=== PATIENT | male | born 1945 | race Caucasian/White ===

== ENCOUNTER → 2018-04-24 10:57 | Outpatient (CLI) | payer MEDICARE, SELFPAY ==
[2018-04-24 12:10] LABS: Absolute Lymphocyte Count 1.91 X10^3/ul (0.83-4.51); Basophil# 0.03 X10^3/uL; Basophil% 0.5 % (0-1); Eosinophil# 0.13 X10^3/uL; Eosinophils% 2.3 % (0-5); Hematocrit 40.7 % (40-54); Hemoglobin 13.9 g/dl (13.0-16.5); Lymphocyte # 1.91 X10^3/ul (4.0); Lymphocyte % 34.4 % (19-41); Mean Corp Hgb Conc 34.2 g/gl (32-36); Mean Corpuscular Hgb 32.2 pg (27.0-32.0); Mean Corpuscular Volume 94.2 fL (80-94); Mean Platelet Vol. 9.9 fl (6.2-12.0); Monocyte# 0.45 X10^3/uL; Monocyte% 8.1 % (0-10); Neutrophil # 3.02 X10^3/uL (2.7-7.7); Neutrophil % 54.5 % (47-70); Platelet Count 196 K/mm3 (150-450); RBC Distribution Width CV 12.8 % (11.6-14.6); RBC Distribution Width SD 44.4 fl (35.1-43.9); Red Blood Count 4.32 M/mm3 (4.6-6.2); White Blood Count 5.6 K/mm3 (4.4-11.0)
[2018-04-24 12:22] LABS: POSITIVE COUNT NO; POSITIVE DIFFERENTIAL NO; POSITIVE MORPHOLOGY NO
[2018-04-24 12:34] LABS: Anion Gap 11 (5-15); BUN 11 mg/dL (7-18); BUN/Creat Ratio 10.5 RATIO (10-20); Calcium,Total 9.5 mg/dL (8.5-10.1); Chloride 101 mmol/L (98-107); Creatinine, Serum 1.05 mg/dL (0.70-1.30); EST Glomerular Filtration Rate 74 mL/min (>60); Est Glom Filt Rate - Afr Amer 90 mL/min (>60); Glucose 253 mg/dL (74-106); Potassium 4.6 mmol/L (3.5-5.1); Sodium Level 138 mmol/L (136-145); Thyroid Stim Hormone (TSH) 0.44 uIU/mL (0.358-3.74)
== END ==
PROVIDERS: Family Provider Family Medicine; PCP Family Medicine; Visit Provider Family Medicine
DX: E11.9 Type 2 diabetes mellitus without complications (principal); E78.5 Hyperlipidemia, unspecified; I10 Essential (primary) hypertension
CPT/HCPCS: 36415; 80048; 84443; 85025

== ENCOUNTER 2018-06-09 11:36 | Emergency (ER) | payer MEDICARE, SELFPAY ==
[2018-06-09 11:37] VITALS: BP 165/90; PULSE 86; RESP 16; TEMP 36; O2SAT 97; BMI 29.8
--- NOTE | 2018-06-09 12:18 | RAD_ITS ---
STUDY: X-RAY - LEFT TIBIA AND FIBULA REASON FOR EXAM: Male, 73 years old. Left leg pain. No known injury. TECHNIQUE: AP and view(s) of the tibia and fibula were obtained. COMPARISON: None. FINDINGS: Normal visualized tibia. Normal visualized fibula. Plantar spur. Vascular calcification. RAD/Tibia & Fibula 2 Views IMPRESSION: Vascular calcification. Plantar spur. Electronically Signed: Josh Winston MD at 12:46 EST Tel [phone], Service support ,
[2018-06-09] MEDS: Cephalexin 250 MG Capsule 500 MG PO (12:31)
--- NOTE | 2018-06-09 13:00 | ED.DCSUM_ITS ---
- ER Visit Summary Date of Service: 06/09/18 Chief Complaint: Left leg pain History of Present Illness: The patient is a [address] Marcellus Moore and Dr. Cifuentes. He reports that he has a history of diabetes mellitus and that he had to have his right fourth toe amputated a couple years ago. States that 3 days ago he bumped his left leg on something and has pain since that time that is 5 out of 10 with walking and movement and is pain-free at rest. Describes it as an aching, stretching pain and points to his Achilles as the area that is in pain. Patient is also concerned because his right second toenail came off when he removed his socks 3 days ago and the area is becoming red. Review of systems: General: No fever, chills, cold sweats. Cardiovascular: No chest pain, palpitations. Respiratory: No cough, shortness of breath, dyspnea on exertion. Gastrointestinal: No abdominal pain, nausea, vomiting, diarrhea, melena, or hematochezia. Genitourinary: No dysuria, frequency, hematuria. Skin: No rash. Neuro: No headache, numbness, weakness. Physical Examination: Vitals: Stable. Afebrile. General: Well-nourished and well-developed. Head: Normocephalic atraumatic. Neck: Supple, no lymphadenopathy. No JVD. Nontender. Cardiovascular: Regular rate and rhythm. No murmurs. Respiratory: No respiratory distress. Clear to auscultation bilaterally. Abdominal: Soft, nontender, nondistended, normal bowel sounds. No guarding, rebound, or peritoneal signs. Back: Nontender. Extremities: Contusion over the medial side of his distal left leg. There is mild soft tissue swelling. He is moderately tender to palpation. His Achilles is intact. He has a normal Chan test. He has a 2+ dorsalis pedis pulse on the side. Exam of his right foot shows that the Tylenol has been avulsed. There is mild erythema to his toe. There is no induration or fluctuance. There is no lymphangitic spread.. Skin: Normal color, no rash. Neurologic: Alert and oriented ?3. Cranial nerves II through XII are intact. Normal strength and sensation. Psych: Normal affect. Test Results: Left tib-fib x-ray is negative. Emergency Department Course and Treatment: Patient was treated with Keflex p.o. and is resting comfortably. Treatment Plan: Patient will be discharged on Keflex. Instructed to follow-up Dr. Esau acosta in 6 days as previously scheduled. Return to the emergency department for any worsening symptoms. Disposition: To home in improved and stable condition. Impression: 1. Contusion left leg. 2. Avulsed right third toenail. This note was generated with [employer] dictation software. It may contain incorrect words, spelling, and punctuation that were not noted in review of the chart prior to signing ED Disposition - Plan for ED Patient: Disposition: Home or Assisted Living Chief Complaint: Wound Instructions: ED Avulsion Nail Complete Prescriptions: Cephalexin [Keflex] 500 mg PO Q6 #28 capsule Referrals: Rebecca Cifuentes DPM [STAFF PHYSICIAN] - 1 Week
== END 2018-06-09 13:24 | disposition home or self-care (01) ==
LOC: ED 13:18
PROVIDERS: Emergency Provider Emergency Medicine; Family Provider Family Medicine; PCP Family Medicine
DX: S80.12XA Contusion of left lower leg, initial encounter (principal); S91.204A Unspecified open wound of right lesser toe(s) with damage to nail, initial encounter; X58.XXXA Exposure to other specified factors, initial encounter; W22.8XXA Striking against or struck by other objects, initial encounter; Y93.9 Activity, unspecified; Y92.9 Unspecified place or not applicable; E11.9 Type 2 diabetes mellitus without complications; Z89.421 Acquired absence of other right toe(s); Z79.84 Long term (current) use of oral hypoglycemic drugs; Z79.82 Long term (current) use of aspirin
CPT/HCPCS: 73590; 99283

== ENCOUNTER → 2018-10-22 10:54 | Outpatient (CLI) | payer MEDICARE, SELFPAY ==
--- NOTE | 2018-10-22 10:57 | ART_ITS ---
Reason For Study: PVD Procedure A bilateral lower extremity continuous wave Doppler with analog waveform analysis,segmental pressures,and ankle brachial indexes without exercise. Left Segmental Pressures Left brachial= 167mmHg. Left thigh = 218mmHg. Left calf = 175mmHg. Left posterior tibial artery = 144mmHg. Left dorsalis pedis artery = 249mmHg. Left digit = 30 mmHg. The left dorsalis pedis waveforms are biphasic. The left posterior tibial artery waveforms are biphasic. Right Segmental Pressures Right brachial= 160mmHg. Right thigh = 231mmHg. Right calf = 180mmHg. Right posterior tibial artery = 120mmHg. Right dorsalis pedis artery = 132mmHg. Right digit = 132 mmHg. The right dorsalis pedis waveforms are biphasic. The right posterior tibial artery waveforms are biphasic. Indices The right ankle brachial index by the dorsalis pedis is .79. The right ankle brachial index by the posterior tibial artery is .79. The right digital-brachial index is .79. The left ankle brachial index by the dorsalis pedis is 1.49. The left ankle brachial index by the posterior tibial artery is .86. The left digital-brachial index is .18. Interpretation Summary Biphasic Doppler waveforms are noted at ankle level bilaterally. Pulse-volume recording waveform amplitudes are diminished at ankle and digital levels bilaterally. The resting right ankle-brachial index is moderately diminished. The resting left ankle-brachial index is supra-normal. The right digital-brachial index is normal. The left digital-brachial index is severely diminished. 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 There appears to be arterial calcification at ankle level on the left. Arterial flow at digital level on the right appears relatively normal. Arterial flow at digital level on the left appears to be severely diminished. Ordering Physician: Rebecca Cifuentes Referring Physician: Rebecca Cifuentes Performed By: Daniela Cardenas RVT
== END ==
PROVIDERS: Family Provider Family Medicine; PCP Family Medicine; Referring Provider Podiatrist; Visit Provider Podiatrist
DX: I73.9 Peripheral vascular disease, unspecified (principal)
CPT/HCPCS: 93923

== ENCOUNTER 2018-11-18 13:15 | Outpatient (RCR) | payer MEDICARE, SELFPAY ==
[2018-11-11 13:18] VITALS: BP 139/83; PULSE 84; RESP 18; TEMP 36.2
--- NOTE | 2018-11-11 15:26 | PN.PCM_ITS ---
(1) Chronic ulcer of left foot with fat layer exposed Status: Acute Code(s): L97.522 - Non-pressure chronic ulcer of other part of left foot with fat layer exposed (2) Other specified peripheral vascular diseases Status: Chronic Code(s): I73.89 - Other specified peripheral vascular diseases (3) Type 2 diabetes mellitus with diabetic polyneuropathy Status: Chronic Code(s): E11.42 - Type 2 diabetes mellitus with diabetic polyneuropathy (4) Achilles rupture, left Status: Chronic Code(s): S86.012A - Strain of left Achilles tendon, initial encounter (5) Delayed wound healing Status: Chronic Code(s): T14.8XXD - Other injury of unspecified body region, subsequent encounter (6) Malnutrition Status: Chronic Code(s): E46 - Unspecified protein-calorie malnutrition (7) Walking difficulty due to ankle and foot Status: Chronic Code(s): R26.2 - Difficulty in walking, not elsewhere classified Type of Wound Date of Service: 11/11/18 Chief Complaint: Left heel ulcer History of Wound: This 73-year-old male with multiple comorbidities is seen today for left plantar heel ulcer. He sustained an Achilles rupture over 4 months ago and reported for evaluation within the past couple of weeks at [facility]. He has been walking on physical time with ongoing weakness and discomfort. He was placed in a cam walker boot and advised to only place partial weight on this site with the heel lifts in place to allow the tendon to heal. He walked fully in this brace and developed skin breakdown to the bottom of his heel after a large blister formed. This blister has since been drained, deroofed, offloaded. Strict nonweightbearing has been recommended and he uses an assistive device. His granddaughter has been helping him until she moved back out of state. His neighbor now is helping him. He just received [employer] and other supplies in the mail. He was previously advised to follow- up with vascular surgery due to his abnormal blood flow study results; this has not been scheduled yet. He denies fever, chill, nausea, vomiting today. He does have some evidence of previous claudication. He is legally blind and he does have continued rest paresthesias consistent with neuropathy. Progress of Wound: Stable - Physical Exam Vital Signs Temp Pulse Resp BP 97.1 F L 84 18 139/83 H 11/11/18 13:18 11/11/18 13:18 11/11/18 13:18 11/11/18 13:18 General: Alert, Oriented x3, Cooperative HEENT: Atraumatic Extremities: No cyanosis, Capillary Refill Less than 3 Seconds, No Calf Tenderness - Negative, and [place]win, Diminished Peripheral Pulses, Edema - Mild, - - Lack of foot plantarflexion with compression of left calf. Palpable [place] in the Achilles watershed area of the left lower extremity. No pain with ulcer manipulation of the plantar left heel. No bogginess or fluctuance at this ulcer site. Skin: Ulcer/ Wound - There is no purulence, erythema, streaking, odor, infection or exposed deep tissue or maceration left foot. The previous bulla has been deroofed and the ulcer bed is granular and fibrous with a central well adhered dry eschar. The peripheral skin is very hairless and atrophic Wound Measurements and Assessment WC - Nurse 1 - General Ulcer Measurement Start: 11/11/18 13:18 Freq: Status: Active Protocol: Activity Type Activity Date Activity User E-Sign Co-Sign Detail Recorded Client Recorded Date Recorded By Document 11/11/18 13:18 DV [id number] 11/11/18 13:46 DV 11/11/18 13:18 Wound Center Nurse 1 [Ulcer Assessment] #1 Left Heel -Combined with other wound No -Current Size (cm) - Length 1.0 -Current Size (cm) - Width 4.0 -Current Size (cm) - Depth 0.1 -Total Square Cm 4.00 -Date of Last Picture (Recall this 11/11/18 field) -Photo Taken Yes -Epithelialization None Present -Tunneling No -Undermining/Tunneling No -Circular Undermining No -Exudate Amt Medium -Exudate Type Serosanguineous -Wound Margin Flat & Intact -Granulation Amt None Present (0 %) -Granulation Quality N/A -Slough/Fibrin Yes -Necrosis Amt Large (67-100%) -Necrotic Tissue Type Eschar -Structure Exposed None/Limited to Skin Breakdown -Texture (Emily-wound Skin Appearance) Assessed Scarring -Moisture (Emily-wound Skin Appearance Assessed ) -Color (Emily-wound Skin Appearance) Assessed Erythema -Temperature (Emily-wound Skin No Abnormality Appearance) (Pt Warm) -Tenderness on Palpation (Emily-wound Yes Skin Appearance) -Ulcer Cleansing Rinsed/ Irrigated with Saline -Foul Odor after Cleansing No -Anesthetic Used 4% Lidocaine Solution [Edema Assessment] -Lower Limb Edema Present No - Nurse 2 - General Ulcer CM Notes Start: 11/11/18 13:18 Freq: Status: Active Protocol: Activity Type Activity Date Activity User E-Sign Co-Sign Detail Recorded Client Recorded Date Recorded By Document 11/11/18 14:06 [id number] 11/11/18 14:08 11/11/18 14:06 Wound Center Nurse 2 [Procedure/Treatment] #1 Left Heel -Time 14:07 -Correct Patient Yes -Correct Side, Site, Position Yes -Correct Procedure Yes -Procedure Performed Yes -Type of Procedure Debridement -Clinical Debridement Subcutaneous -Post Debridement Size (cm) - Length 1.1 -Post Debridement Size (cm) - Width 4.1 -Post Debridement Size (cm) - Depth 0.1 -Total Square Cm 4.51 -Wound/Ulcer Outcome Not Healed -Ulcer Cleansing Rinsed/ Irrigated with Saline -Foul Odor after Cleansing No -Bioengineered Tissue No -Bleeding Controlled with Pressure -Offloading Yes -Type of Offloading Camwalker -Treatment Response Procedure Tolerated Well [See Physician Procedure note for Specifics] Pain Scale: 0-10 Numeric [Pain] -Is Patient Pain Free? Yes Musculoskeletal: No Tenderness to Palpation of Joints or Extremities, Muscle Wasting Neurological: - - Lack of epicritic sensation light touch consistent with neuropathy Psych/Mental Status: Normal Affect, Appropriate Debridement Note Post-Debridement Measurements/Treatment - Nurse 2 - General Ulcer CM Notes Start: 11/11/18 13:18 Freq: Status: Active Protocol: Activity Type Activity Date Activity User E-Sign Co-Sign Detail Recorded Client Recorded Date Recorded By Document 11/11/18 14:06 JF [id number] 11/11/18 14:08 11/11/18 14:06 Wound Center Nurse 2 #1 Left Heel -Time 14:07 -Correct Patient Yes -Correct Side, Site, Position Yes -Correct Procedure Yes -Procedure Performed Yes -Type of Procedure Debridement -Clinical Debridement Subcutaneous -Post Debridement Size (cm) - Length 1.1 -Post Debridement Size (cm) - Width 4.1 -Post Debridement Size (cm) - Depth 0.1 -Total Square Cm 4.51 -Wound/Ulcer Outcome Not Healed -Ulcer Cleansing Rinsed/ Irrigated with Saline -Foul Odor after Cleansing No -Bioengineered Tissue No -Bleeding Controlled with Pressure -Offloading Yes -Type of Offloading Camwalker -Treatment Response Procedure Tolerated Well Pain Scale: 0-10 Numeric Is Patient Pain Free? Yes Wound debrided: plantar heel Laterality: Left Wound Grade/Stage: grade 1 Type of Debridement: Excisional debridement Anesthesia Used: 5% Lidocaine Gel Depth: in the subcutaneous layer Percentage of wound debrided: 100 Instrument Used: #15 blade Tissue Removed: fibrous, devitalized subcutaneous, biofilm, slough Severity: Fat Layer Exposed Amount of bleeding with debridement: Mild Bleeding Controlled with: Pressure Patient tolerated procedure well Assessment/Plan Assessment: Left heel ulcer. Left Achilles tendon rupture. Peripheral vascular disease. Diabetes with neuropathy. Malnutrition. Other comorbidities. Walking difficulty Plan: I reviewed and discussed his case. Debridement was performed as noted in the clinical panel. To continue strict offloading by wearing a Cam walking boot and using a knee roller, crutches, a walker to keep weight off of the site. He change dressing daily with [employer]. Transition into other wound healing products will be considered as the ulcer changes and progresses. It is noted his CAM Walker does have heel lifts in place to keep his foot in a slightly plantarflexed position to allow Achilles tendon rupture healing. He was reassured no local signs of infection are noted and advised him to monitor this. His neighbor will also help with this. It is noted his noninvasive vascular studies were abnormal again and he has had previous lower extremity ulcers with significant delayed healing. The referral to Dr. Dodson was provided and he was advised to schedule a prompt follow-up to see if any intervention is possible. To continue with proper diet to control medical health and ulcer healing. He was unable to afford the Yayo and will take Ensure 1-2 times daily as a supplement. His x-ray was previously reviewed at the foot [facility] ankle Center without any fractures, soft tissue emphysema, foreign body, or dislocations or Charcot. Lab work will also be updated; CBC, CMP, and prealbumin. To return to the wound healing center in 1 week or call sooner if he has any questions or concerns. I answered all of his questions.
[2018-11-18 13:12] VITALS: BP 177/76; PULSE 81; RESP 16; TEMP 36.2
--- NOTE | 2018-11-18 14:33 | PN.PCM_ITS ---
(1) Chronic ulcer of left foot with fat layer exposed Status: Chronic Current Visit: Yes Code(s): L97.522 - Non-pressure chronic ulcer of other part of left foot with fat layer exposed (2) Other specified peripheral vascular diseases Status: Chronic Current Visit: Yes Code(s): I73.89 - Other specified peripheral vascular diseases (3) Type 2 diabetes mellitus with diabetic polyneuropathy Status: Chronic Current Visit: Yes Code(s): E11.42 - Type 2 diabetes mellitus with diabetic polyneuropathy (4) Achilles rupture, left Status: Chronic Current Visit: Yes Code(s): S86.012A - Strain of left Achilles tendon, initial encounter (5) Delayed wound healing Status: Chronic Current Visit: Yes Code(s): T14.8XXD - Other injury of unspecified body region, subsequent encounter (6) Malnutrition Status: Chronic Current Visit: Yes Code(s): E46 - Unspecified protein- calorie malnutrition (7) Walking difficulty due to ankle and foot Status: Chronic Current Visit: Yes Code(s): R26.2 - Difficulty in walking, not elsewhere classified Type of Wound Date of Service: 11/18/18 Chief Complaint: Left heel ulcer History of Wound: This 73-year-old male with multiple comorbidities is seen today for left plantar heel ulcer. He is concurrently being treated for a neglected left Achilles tendon rupture with CAM Walker immobilization and heel lift. He is remain nonweightbearing to left lower extremity and his neighbor helps him with daily dressing changes. He denies fever, chill, nausea, vomiting. He did have previous claudication symptoms. He is still trying to get a follow-up visit with vascular surgery and has been provided with several options as far as location and providers. Progress of Wound: Stable - Physical Exam Vital Signs Temp Pulse Resp BP 97.1 F L 81 16 177/76 H 11/18/18 13:12 11/18/18 13:12 11/18/18 13:12 11/18/18 13:12 General: Alert, Oriented x3, Cooperative HEENT: Atraumatic Extremities: No cyanosis, Capillary Refill Less than 3 Seconds, No Calf Tenderness - Negative Abhishek and Irwin, Diminished Peripheral Pulses, Edema - Mild left, - - There is no longer distinct palpable [place] to the watershed area of the previously ruptured Achilles tendon site. Pain to palpate this site has also resolved. Skin: Ulcer/ Wound - No purulence, erythema, streaking, odor, or acute signs of infection. There is moist eschar to the plantar heel which was debrided away today without deeper exposed muscle or bone. Wound Measurements and Assessment - Nurse 1 - General Ulcer Measurement Start: 11/11/18 13:18 Freq: Status: Active Protocol: Activity Type Activity Date Activity User E-Sign Co-Sign Detail Recorded Client Recorded Date Recorded By Document 11/18/18 13:12 [facility] [id number] 11/18/18 13:21 [facility] 11/18/18 13:12 Wound Center Nurse 1 [Ulcer Assessment] #1 Left Heel -Combined with other wound No -Current Size (cm) - Length 2.6 -Current Size (cm) - Width 4.1 -Current Size (cm) - Depth 0.1 -Total Square Cm 10.66 -Photo Taken No -Epithelialization None Present -Tunneling No -Undermining/Tunneling No -Circular Undermining No -Exudate Amt Medium -Exudate Type Serosanguineous -Wound Margin Distinct, Outline Attached -Granulation Amt Small (1-33%) -Granulation Quality Red -Slough/Fibrin Yes -Necrosis Amt Large (67-100%) -Necrotic Tissue Type Eschar -Structure Exposed N/A -Texture (Emily-wound Skin Appearance) Assessed Callus Scarring -Moisture (Emily-wound Skin Appearance Assessed ) Dry/Scaly -Color (Emily-wound Skin Appearance) Assessed Erythema -Temperature (Emily-wound Skin No Abnormality Appearance) (Pt Warm) -Tenderness on Palpation (Emily-wound No Skin Appearance) -Ulcer Cleansing Wound Cleanser -Foul Odor after Cleansing No -Anesthetic Used 5% Lidocaine Gel - Nurse 2 - General Ulcer CM Notes Start: 11/11/18 13:18 Freq: Status: Active Protocol: Activity Type Activity Date Activity User E-Sign Co-Sign Detail Recorded Client Recorded Date Recorded By Document 11/18/18 14:02 AN [id number] 11/18/18 14:07 AN 11/18/18 14:02 Wound Center Nurse 2 [Procedure/Treatment] -Time 14:03 -Correct Patient Yes -Correct Side, Site, Position Yes -Correct Procedure Yes -Procedure Performed Yes -Type of Procedure Debridement -Clinical Debridement Subcutaneous -Post Debridement Size (cm) - Length 2.7 -Post Debridement Size (cm) - Width 4.2 -Post Debridement Size (cm) - Depth 0.1 -Total Square Cm 11.34 -Wound/Ulcer Outcome Not Healed -Ulcer Cleansing Rinsed/ Irrigated with Saline -Foul Odor after Cleansing No -Bioengineered Tissue No -Bleeding Controlled with Pressure -Type of Offloading Camwalker -Treatment Response Procedure Tolerated Well [See Physician Procedure note for Specifics] Pain Scale: 0-10 Numeric [Pain] -Is Patient Pain Free? Yes Musculoskeletal: No Tenderness to Palpation of Joints or Extremities, Muscle Wasting, - - No bogginess or fluctuance left. Compartments remain soft to palpate left lower extremity. Neurological: - - Lack of epicritic sensation light touch left lower extremity Psych/Mental Status: Normal Affect, Appropriate Debridement Note Post-Debridement Measurements/Treatment WC - Nurse 2 - General Ulcer CM Notes Start: 11/11/18 13:18 Freq: Status: Active Protocol: Activity Type Activity Date Activity User E-Sign Co-Sign Detail Recorded Client Recorded Date Recorded By Document 11/11/18 14:06 [id number] 11/11/18 14:08 Document 11/18/18 14:02 AN [id number] 11/18/18 14:07 AN 11/11/18 11/18/18 14:06 14:02 Wound Center Nurse 2 #1 Left Heel -Time 14:07 14:03 -Correct Patient Yes Yes -Correct Side, Site, Position Yes Yes -Correct Procedure Yes Yes -Procedure Performed Yes Yes -Type of Procedure Debridement Debridement -Clinical Debridement Subcutaneous Subcutaneous -Post Debridement Size (cm) - Length 1.1 2.7 -Post Debridement Size (cm) - Width 4.1 4.2 -Post Debridement Size (cm) - Depth 0.1 0.1 -Total Square Cm 4.51 11.34 -Wound/Ulcer Outcome Not Healed Not Healed -Ulcer Cleansing Rinsed/ Rinsed/ Irrigated with Irrigated with Saline Saline -Foul Odor after Cleansing No No -Bioengineered Tissue No No -Bleeding Controlled with Pressure Pressure -Offloading Yes -Type of Offloading Camwalker Camwalker -Treatment Response Procedure Procedure Tolerated Well Tolerated Well Pain Scale: 0-10 Numeric Is Patient Pain Free? Yes Yes Wound debrided: plantar heel Laterality: Left Wound Grade/Stage: grade 1 Type of Debridement: Excisional debridement Anesthesia Used: 5% Lidocaine Gel Depth: in the subcutaneous layer Percentage of wound debrided: 100 Instrument Used: #15 blade Tissue Removed: fibrous, devitalized subcutaneous, biofilm, slough, moist eschar Severity: Fat Layer Exposed Amount of bleeding with debridement: Mild Bleeding Controlled with: Pressure Patient tolerated procedure well Assessment/Plan Active Problems Chronic ulcer of left foot with fat layer exposed (Chronic) Other specified peripheral vascular diseases (Chronic) Type 2 diabetes mellitus with diabetic polyneuropathy (Chronic) Achilles rupture, left (Chronic) Delayed wound healing (Chronic) Malnutrition (Chronic) Walking difficulty due to ankle and foot (Chronic) Assessment: Left heel ulcer. Left Achilles tendon rupture. Peripheral vascular disease. Diabetes with neuropathy. Malnutrition. Other comorbidities. Walking difficulty Plan: I reviewed and discussed his case. Debridement was performed as noted in the clinical panel. To continue strict offloading by wearing a Cam walking boot and using a knee roller, crutches, a walker to keep weight off of the site. He change dressing daily with the recommended wound product. Transition into other wound healing products will be considered as the ulcer changes and progresses. It is noted his CAM Walker does have heel lifts in place to keep his foot in a slightly plantarflexed position to allow Achilles tendon rupture healing. He was reassured no local signs of infection are noted and advised him to monitor this. His neighbor will also help with this. It is noted his non invasive vascular studies were abnormal again and he has had previous lower extremity ulcers with significant delayed healing. The referral to Dr. Dodson was provided and he was advised to schedule a prompt follow-up to see if any intervention is possible. He still has not done this as advised. This is recommended due to his difficulty traveling to his previous vascular surgeons location and scheduling issues. He now wants to try to return to his initial vascular surgeon which is okay. I recommend he take action promptly to prevent limb loss. Nursing staff also help facilitate his follow-up. To continue with proper diet to control medical health and ulcer healing. He was unable to afford the Yayo and will take Ensure 1-2 times daily as a supplement. His x- ray was previously reviewed at the foot and ankle Center without any fractures, soft tissue emphysema, foreign body, or dislocations or Charcot. Lab work will also be updated; CBC, CMP, and prealbumin. To return to the wound healing center in 1 week or call sooner if he has any questions or concerns. I answered all of his questions.
== END 2018-11-24 23:59 ==
LOC: WC 13:15
PROVIDERS: Family Provider Family Medicine; PCP Family Medicine; Visit Provider Podiatrist
DX: E11.621 Type 2 diabetes mellitus with foot ulcer (principal); E11.42 Type 2 diabetes mellitus with diabetic polyneuropathy; L97.422 Non-pressure chronic ulcer of left heel and midfoot with fat layer exposed; H54.8 Legal blindness, as defined in USA; S86.012A Strain of left Achilles tendon, initial encounter; X58.XXXA Exposure to other specified factors, initial encounter
CPT/HCPCS: 11042; 99213; G0463

== ENCOUNTER 2018-12-09 13:33 | Inpatient (IN) | payer MEDICARE, SELFPAY ==
[2018-12-09] VITALS (10 sets, daily range): BP systolic 128–164; BP diastolic 78–95; PULSE 70–95; RESP 14–114; TEMP 36.4–36.8; O2SAT 97–100; BMI 29.8; BMI 29.2; BMI 29.3; BMI 28.3
[2018-12-09 15:04] LABS: Erythrocyte Sedimentation Rate 18 mm/hr (0-20)
[2018-12-09 15:05] LABS: Absolute Lymphocyte Count 2.36 X10^3/ul (0.83-4.51); Absolute Neutrophil Count 5.9 X10^3/uL (2.0-7.7); Basophil# 0.05 X10^3/uL; Basophil% 0.5 % (0-1); Eosinophil# 0.15 X10^3/uL; Eosinophils% 1.6 % (0-5); Hematocrit 37.2 % (40-54); Hemoglobin 12.7 g/dl (13.0-16.5); Lymphocyte # 2.36 X10^3/ul (4.0); Lymphocyte % 24.9 % (19-41); Mean Corp Hgb Conc 34.1 g/gl (32-36); Mean Corpuscular Hgb 30.5 pg (27.0-32.0); Mean Corpuscular Volume 89.4 fL (80-94); Mean Platelet Vol. 9.2 fl (6.2-12.0); Monocyte# 0.98 X10^3/uL; Monocyte% 10.4 % (0-10); Neutrophil # 5.88 X10^3/uL (2.7-7.7); Neutrophil % 62.2 % (47-70); POSITIVE COUNT NO; POSITIVE DIFFERENTIAL NO; POSITIVE MORPHOLOGY NO; Platelet Count 317 K/mm3 (150-450); RBC Distribution Width CV 12.7 % (11.6-14.6); RBC Distribution Width SD 41.1 fl (35.1-43.9); Red Blood Count 4.16 M/mm3 (4.6-6.2); White Blood Count 9.5 K/mm3 (4.4-11.0)
[2018-12-09 15:09] LABS: Anion Gap 7 (5-15); BUN 12 mg/dL (7-18); Calcium,Total 9.4 mg/dL (8.5-10.1); Chloride 98 mmol/L (98-107); Creatinine, Serum 0.86 mg/dL (0.70-1.30); EST Glomerular Filtration Rate 93 mL/min (>60); Est Glom Filt Rate - Afr Amer 113 mL/min (>60); Estimated Creatinine Clearance 83.91 ml/min; Glucose 172 mg/dL (74-106); Potassium 4.1 mmol/L (3.5-5.1); Sodium Level 136 mmol/L (136-145)
--- NOTE | 2018-12-09 15:15 | RAD_ITS ---
STUDY: X-RAY - LEFT FOOT CLINICAL: Cellulitis. TECHNIQUE: 3 view(s) of the foot. COMPARISON: None. FINDINGS: There is mild cortical erosion of the plantar aspect of the posterior tuberosity of the calcaneus deep to the soft tissue ulcer of the heel pad, worrisome for osteomyelitis. Normal visualized subtalar, talonavicular, calcaneocuboid, tarsal and tarsometatarsal articulations. Normal metatarsi. There is joint space narrowing of the metatarsophalangeal joint of the great toe. Normal tibial and fibular sesamoid bones. Normal interphalangeal joint of the great toe. There is chronic fracture deformity of the proximal phalanx of the great toe. Normal second through fifth metatarsophalangeal joints. Normal interphalangeal joints and phalanges of the lesser toes. There is vascular calcification. There is ossification in the proximal plantar fascia. RAD/Foot min 3 Views IMPRESSION: Mild cortical erosion of the posterior tuberosity calcaneus deep to the soft tissue ulcer, worrisome for osteomyelitis. Arthrosis of the first metatarsophalangeal joint. Chronic fracture deformity of the first proximal phalanx. Electronically Signed: Kristian Slade MD at 15:44 EDT Tel , Service support ,
--- NOTE | 2018-12-09 15:32 | ED.VISSUMM ---
- ER Visit Summary Date of Service: 12/09/18 Chief Complaint: Diabetic foot infection History of Present Illness: The patient is a 73 M who states he was sent from the wound center (Dr. Cifuentes) for evaluation of possible osteomyelitis of the left foot. Patient is a diabetic with peripheral vascular disease polyneuropathy. Reportedly alcoholism and tobacco use as well. Patient states for the past several weeks he has been battling a ulcer on the heel of the left foot. He states he was seen by podiatry today who called me stated that the wound was significantly worsening over the past week. They did debride it and take cultures from that wound area. Patient has a history of osteomyelitis of the left foot. Physical Examination: Afebrile vital signs stable Gen: Well-nourished well-developed Head: Normocephalic atraumatic Eyes: Perrl EOMI ENT: TMs clear no rhinorrhea moist mucous membranes Neck: Supple no lymphadenopathy no JVD nontender CVS: Regular rate rhythm no murmurs normal S1-S2 Respiratory: No distress clear to auscultation bilaterally chest nontender Abdomen: Soft nontender nondistended normal bowel sounds no masses Back: Nontender Extremity: There is a ulcer on the heel of the left foot. Noted decreased sensation which the patient states is chronic Skin: Normal color no rash Neuro: alert orientated ?3 CN II-XII intact normal strength Psych: Normal affect normal mood Test Results: White count is normal chemistries negative. CRP at 51.6 sed rate of 18. Blood cultures obtained. X-rays of the foot revealed cortical erosion on the calcaneus concerning for osteomyelitis Emergency Department Course and Treatment: Patient received vancomycin and Zosyn. Plan will be for admission Impression: 1. Diabetic foot ulcer 2. Left calcaneal osteomyelitis This note was generated with [employer] software. It may contain incorrect words, spelling, and punctuation that were not noted in review of the chart prior to signing ED Disposition - Plan for ED Patient: Referrals: Marcellus Moore MD [Primary Care Provider] -
--- NOTE | 2018-12-09 15:53 | NURSING ---
DR KRISTOPHER SIMMONS
--- NOTE | 2018-12-09 16:07 | CASEMGMT ---
RN CM Assessment Introduced role of RN CM to patient.? Patient is alert, oriented and able?to participate in RN CM Assessment. ?Care providers, pharmacy, and demographics verified. Presentation: Sent from Wound Ctr for Cellulitis of Left Foot Re-Admit: No Barriers/Issues: None. Patient Brother and his came down-have a trailer that they stay in, has been here for a couple weeks and plan to stay a couple more weeks, has been helping patient with wound care, plan to continue after hospital DC. PCP: Marcellus Moore Specialists: None Preferred [facility]acy: [facility] Insurance: [employer] Benefit:?No LNOK: Daughter Sarah Martinez LW/HPOA: No, Declines offered information Living Arrangements:? Lives alone in a SS Home, 8 steps to enter ADL?s: Independent with ambulation up until this wound issue the past couple months has been using a Rollator and has a boot. Independent with ADL's Transportation: Patient legally blind, neighbor usually transports, Brother to transport on DC DME: Rollator, He make shifted a shower chair with a board. HHC: Past- cannot recall Agency SNF: None Goal: Home, states that he prefers his brother to help him rather than HHC if needed. States last time similar wound x2yrs ago and had IV Abx- went daily to get infusions. DC PLAN: Home with possible IV ABX, Wound Care. [place]
--- NOTE | 2018-12-09 16:38 | CON.PCM_ITS ---
Problem List (1) Chronic ulcer of left foot with fat layer exposed Status: Chronic (2) Other specified peripheral vascular diseases Status: Chronic (3) Type 2 diabetes mellitus with diabetic polyneuropathy Status: Chronic (4) Achilles rupture, left Status: Chronic (5) Delayed wound healing Status: Chronic (6) Malnutrition Status: Chronic (7) Peripheral vascular disease Status: Chronic (8) Hypertension Status: Chronic (9) Obesity (BMI 30.0-34.9) Status: Chronic (10) Hyperlipidemia Status: Chronic (11) Diabetic neuropathy Status: Chronic (12) EtOH dependence Status: Chronic Reason for Consult Date of Consultation: 12/09/18 Reason for Consultation: Left foot wound. History of Present Illness: The patient is a 73 year old M who presents to ER from podiatry office due to non-healing lai grade 3 left heel diabetic ulcer with suspected osteomyelitis. Patient reports he initially was seeing podiatry due to left Achilles rupture and was instructed to wear walking boot. He then report due to friction with wearing boots he developed a left heel wound which is worsened over the past 3 weeks. He reports he has been following with the wound center. Left heel was debrided by podiatry today and cultures were sent. Today he complains of mild chills, denies fever. Denies nausea, vomiting. Denies pain or other associated complaints. He has a past medical history of hypertension, hyperlipidemia, type 2 diabetes mellitus, alcohol abuse. He reports he typically drinks a 12 pack of beer per day. He also admits to marijuana use. Denies other drug use. Past Medical History Past Medical History (Chronic Problems): Chronic Problems Chronic ulcer of left foot with fat layer exposed (Chronic) Other specified peripheral vascular diseases (Chronic) Type 2 diabetes mellitus with diabetic polyneuropathy (Chronic) Achilles rupture, left (Chronic) Delayed wound healing (Chronic) Malnutrition (Chronic) Peripheral vascular disease (Chronic) Hypertension (Chronic) Obesity (BMI 30.0-34.9) (Chronic) Hyperlipidemia (Chronic) Diabetic neuropathy (Chronic) EtOH dependence (Chronic) Allergies No Known Allergies Allergy (Verified 12/09/18 13:35) Home Medications: Ambulatory Orders Medication Instructions Recorded Aspirin [Aspirin, Baby] 81 mg PO DAILY@0800 07/03/15 Lovastatin [Mevacor] 20 mg PO DAILY 07/03/15 Metformin HCl [Glucophage] 1,000 mg PO BIDCM 07/03/15 Multivit with Minerals/Lutein [Pub 1 each PO DAILY 07/03/15 Multivitamin 50 Plus Tab] Collagenase [Santyl] 1 applicatio TOPICAL QODAY 12/09/18 Lisinopril 20 mg PO DAILY 12/09/18 Surgical History: appendectomy Psychiatric History: No pertinent psych hx Lives: Alone Smoking Status: Former smoker Tobacco Use: Cigars Alcohol: Heavy Drugs: Marijuana - *Family History Maternal History Items: Diabetes, - - Leukemia Paternal History Items: Heart Disease Review of Systems Constitutional: Reports: Chills. Denies: Fever, Weakness HEENT: Denies: Head Aches, Sinus Congestion, Sinus Drainage Cardiovascular: Denies: Chest Pain, Palpitations Respiratory: Denies: Cough, Shortness of breath at rest, Sputum production Gastrointestinal: Denies: Abdominal Pain, Nausea, Vomiting Genitourinary: Denies: Dysuria Musculoskeletal: Denies: Joint Pain, Joint Tenderness Skin: Reports: Wounds - Left heel. Denies: Rash Neurological: Denies: Numbness, Tingling, Focal weakness Psychiatric: Denies: Anxiety, Depression, Homicidal Ideations, Suicidal Ideations Hematologic/ Lymphatic: Denies: Easy Bruising, Easy Bleeding - Physical Exam General: Alert, Oriented x3, Cooperative HEENT: Atraumatic, PERRLA, EOMI, Normocephalic Neck: Supple, No JVD, Negative Carotid Bruits Lungs: Clear to auscultation, Normal air movement Cardiovascular: Regular rate, Regular Rhythm, Normal S1, Normal S2, No murmurs Abdomen: Bowel Sounds Present, Soft, Non Tender, Non-Distended, Obese Extremities: No clubbing, No cyanosis, No edema, Capillary Refill Less than 3 Seconds Skin: No rashes, No breakdown, - - Left heel wound, dressing intact. No drainage noted. Musculoskeletal: No Tenderness to Palpation of Joints or Extremities Neurological: Cranial nerves II-XII grossly intact, Neuro grossly intact Psych/Mental Status: Normal Affect, Appropriate Vital Signs Temp Pulse Resp BP Pulse Ox 97.9 F 82 18 145/85 H 99 12/09/18 15:32 12/09/18 15:33 12/09/18 15:33 12/09/18 15:33 12/09/18 15:33 Oxygen Delivery Method Room Air Weight: 210 lb Body Mass Index (BMI) 29.2 Laboratory Tests Past 24 Hrs 12/09/18 12/09/18 14:40 14:40 WBC 9.5 RBC 4.16 L Hgb 12.7 L Hct 37.2 L MCV 89.4 MCH 30.5 MCHC 34.1 RDW 12.7 RDW Differential 41.1 Plt Count 317 MPV 9.2 Immature Gran % (Auto) 0.400 Neut % (Auto) 62.2 Lymph % (Auto) 24.9 Bullock % (Auto) 10.4 H Eos % (Auto) 1.6 Baso % (Auto) 0.5 Absolute Neuts (auto) 5.9 Absolute Lymphs (auto) 2.36 Total Counted Not Reportable ESR 18 Sodium 136 Potassium 4.1 Chloride 98 Carbon Dioxide 31.0 Anion Gap 7 BUN 12 Creatinine 0.86 Estim Creat Clear Calc 83.91 Est GFR (MDRD) Af Amer 113 Est GFR (MDRD) Non-Af 93 BUN/Creatinine Ratio 14.0 Glucose 172 H Calcium 9.4 C-React Prot Ext Range 51.60 H
--- NOTE | 2018-12-09 16:43 | HP.PCM_ITS ---
<Pilar Eng - Last Filed: 12/09/18 16:53> Problem List (1) Chronic ulcer of left foot with fat layer exposed Status: Chronic (2) Other specified peripheral vascular diseases Status: Chronic (3) Type 2 diabetes mellitus with diabetic polyneuropathy Status: Chronic (4) Achilles rupture, left Status: Chronic (5) Delayed wound healing Status: Chronic (6) Malnutrition Status: Chronic (7) Peripheral vascular disease Status: Chronic (8) Hypertension Status: Chronic (9) Obesity (BMI 30.0-34.9) Status: Chronic (10) Hyperlipidemia Status: Chronic (11) Diabetic neuropathy Status: Chronic (12) EtOH dependence Status: Chronic History of Present Illness Date of Admission: 12/09/18 Chief Complaint: Left foot wound. The patient is a 73 year old M who presents to ER from podiatry office due to non-healing lai grade 3 left heel diabetic ulcer with suspected osteomyelitis. Patient reports he initially was seeing podiatry due to left Achilles rupture and was instructed to wear walking boot. He then report due to friction with wearing boots he developed a left heel wound which is worsened over the past 3 weeks. He reports he has been following with the wound center. Left heel was debrided by podiatry today and cultures were sent. Today he complains of mild chills, denies fever. Denies nausea, vomiting. Denies pain or other associated complaints. He has a past medical history of hypertension, hyperlipidemia, type 2 diabetes mellitus, alcohol abuse, PVD. He reports he typically drinks a 12 pack of beer per day. He also admits to marijuana use. Denies other drug use. Past Medical History Past Medical History (Chronic Problems): Chronic Problems Chronic ulcer of left foot with fat layer exposed (Chronic) Other specified peripheral vascular diseases (Chronic) Type 2 diabetes mellitus with diabetic polyneuropathy (Chronic) Achilles rupture, left (Chronic) Delayed wound healing (Chronic) Malnutrition (Chronic) Peripheral vascular disease (Chronic) Hypertension (Chronic) Obesity (BMI 30.0-34.9) (Chronic) Hyperlipidemia (Chronic) Diabetic neuropathy (Chronic) EtOH dependence (Chronic) Allergies No Known Allergies Allergy (Verified 12/09/18 13:35) Home Medications: Ambulatory Orders Medication Instructions Recorded Aspirin [Aspirin, Baby] 81 mg PO DAILY@0800 07/03/15 Lovastatin [Mevacor] 20 mg PO DAILY 07/03/15 Metformin HCl [Glucophage] 1,000 mg PO BIDCM 07/03/15 Multivit with Minerals/Lutein [Pub 1 each PO DAILY 07/03/15 Multivitamin 50 Plus Tab] Collagenase [Santyl] 1 applicatio TOPICAL QODAY 12/09/18 Lisinopril 20 mg PO DAILY 12/09/18 Surgical History: appendectomy Psychiatric History: No pertinent psych hx Lives: Alone Smoking Status: Former smoker Tobacco Use: Cigars Alcohol: Heavy Drugs: Marijuana - *Family History Maternal History Items: Diabetes, - - Leukemia Paternal History Items: Heart Disease Review of Systems Constitutional: Reports: Chills. Denies: Fever, Weakness HEENT: Denies: Head Aches, Sinus Congestion, Sinus Drainage Cardiovascular: Denies: Chest Pain, Palpitations Respiratory: Denies: Cough, Shortness of breath at rest, Sputum production Gastrointestinal: Denies: Abdominal Pain, Nausea, Vomiting Genitourinary: Denies: Dysuria Musculoskeletal: Denies: Joint Pain, Joint Tenderness Skin: Reports: Wounds - Left heel. Denies: Rash Neurological: Denies: Numbness, Tingling, Focal weakness Psychiatric: Denies: Anxiety, Depression, Homicidal Ideations, Suicidal Ideations Hematologic/ Lymphatic: Denies: Easy Bruising, Easy Bleeding VTE Information - Inpt Only VTE Present on Admission: No VTE Mechan Device Prophylaxis: None VTE Pharm Prophylaxis ordered?: Yes - Physical Exam General: Alert, Oriented x3, Cooperative HEENT: Atraumatic, PERRLA, EOMI, Normocephalic Neck: Supple, No JVD, Negative Carotid Bruits Lungs: Clear to auscultation, Normal air movement Cardiovascular: Regular rate, Regular Rhythm, Normal S1, Normal S2, No murmurs Abdomen: Bowel Sounds Present, Soft, Non Tender, Non-Distended, Obese Extremities: No clubbing, No cyanosis, No edema, Capillary Refill Less than 3 Seconds Skin: No rashes, No breakdown, - - Left heel wound, dressing intact. No drainage noted. Musculoskeletal: No Tenderness to Palpation of Joints or Extremities Neurological: Cranial nerves II-XII grossly intact, Neuro grossly intact Psych/Mental Status: Normal Affect, Appropriate Vital Signs Temp Pulse Resp BP Pulse Ox 97.7 F L 80 14 143/91 H 100 12/09/18 16:41 12/09/18 16:41 12/09/18 16:41 12/09/18 16:41 12/09/18 16:41 Oxygen Delivery Method Room Air Weight: 203 lb Body Mass Index (BMI) 28.3 Laboratory Tests Past 24 Hrs 12/09/18 12/09/18 14:40 14:40 WBC 9.5 RBC 4.16 L Hgb 12.7 L Hct 37.2 L MCV 89.4 MCH 30.5 MCHC 34.1 RDW 12.7 RDW Differential 41.1 Plt Count 317 MPV 9.2 Immature Gran % (Auto) 0.400 Neut % (Auto) 62.2 Lymph % (Auto) 24.9 [place] % (Auto) 10.4 H Eos % (Auto) 1.6 Baso % (Auto) 0.5 Absolute Neuts (auto) 5.9 Absolute Lymphs (auto) 2.36 Total Counted Not Reportable ESR 18 Sodium 136 Potassium 4.1 Chloride 98 Carbon Dioxide 31.0 Anion Gap 7 BUN 12 Creatinine 0.86 Estim Creat Clear Calc 83.91 Est GFR (MDRD) Af Amer 113 Est GFR (MDRD) Non-Af 93 BUN/Creatinine Ratio 14.0 Glucose 172 H Calcium 9.4 C-React Prot Ext Range 51.60 H Assessment/Plan 1. Non-healing lai grade 3 left plantar heel diabetic ulcer, rule out osteomyelitis-consult podiatry, follows with Dr. Cifuentes. Wound RN consult. X- ray of left foot completed today shows mild cortical erosion of the posterior tuberosity calcaneus deep to the soft tissue ulcer, worrisome for osteomyelitis. Chronic fracture deformity of the first proximal phalanx. MRI LLE. Afebrile, no leukocytosis. ESR elevated. Wound cultures drawn in office today, pending. IV vancomycin and IV Zosyn. Follow cultures. 2. Neglected left Achilles tendon rupture- CAM walker, immobilization and heel lift. PT/OT. 3. PVD-outpatient follow-up with Dr. Beck 12/16/2018. Continue statin. 4. Alcohol abuse-admits to drinking 12 beers per day. CIWA/Ativan protocol. 5. Hypertension-stable, continue home lisinopril regimen. 6. Hyperlipidemia-continue statin regimen. 7. Type 2 diabetes mellitus-hold metformin regimen. Accu-Cheks AC at bedtime with sliding scale insulin. Check hemoglobin A1c. 8. Marijuana use-encourage cessation. 9. Moderate protein calorie malnutrition-nutrition consult. DVT prophylaxis- Lovenox sc This patient was seen by MARIBEL Willett under the supervision of Dr. Enrique. <Ky Enrique E - Last Filed: 12/09/18 17:34> History of Present Illness The patient is a 73 year old M [] Past Medical History Allergies No Known Allergies Allergy (Verified 12/09/18 13:35) - Physical Exam Vital Signs Temp Pulse Resp BP Pulse Ox 97.7 F L 80 14 143/91 H 100 12/09/18 16:41 12/09/18 16:41 12/09/18 16:41 12/09/18 16:41 12/09/18 16:41 Oxygen Delivery Method Room Air Weight: 203 lb Body Mass Index (BMI) 28.3 Laboratory Tests Past 24 Hrs 12/09/18 12/09/18 14:40 14:40 WBC 9.5 RBC 4.16 L Hgb 12.7 L Hct 37.2 L MCV 89.4 MCH 30.5 MCHC 34.1 RDW 12.7 RDW Differential 41.1 Plt Count 317 MPV 9.2 Immature Gran % (Auto) 0.400 Neut % (Auto) 62.2 Lymph % (Auto) 24.9 [place] % (Auto) 10.4 H Eos % (Auto) 1.6 Baso % (Auto) 0.5 Absolute Neuts (auto) 5.9 Absolute Lymphs (auto) 2.36 Total Counted Not Reportable ESR 18 Sodium 136 Potassium 4.1 Chloride 98 Carbon Dioxide 31.0 Anion Gap 7 BUN 12 Creatinine 0.86 Estim Creat Clear Calc 83.91 Est GFR (MDRD) Af Amer 113 Est GFR (MDRD) Non-Af 93 BUN/Creatinine Ratio 14.0 Glucose 172 H Calcium 9.4 C-React Prot Ext Range 51.60 H Assessment/Plan Hospitalist note: I am seeing this patient in conjunction with Pilar Eng. I independently seen and examined the patient. History and physical, laboratory data and imaging studies reviewed and I concur with the above admission and treatment plan. Patient was referred to the ED from podiatry office due to nonhealing left foot ulcer with suspected osteomyelitis. Patient had a history of left Achilles rupture and he has been following up with podiatry as outpatient and because of the friction with wearing his shoes, he developed left heel wound which has been worsening over the last 3 weeks. He reported pain on the back of the left foot, dull aching pain, mild pain, not radiating, aggravated by standing, relieved by rest and without associated symptoms. He denied fevers but reported occasional chills. He had a history of type 2 diabetes mellitus, has been on oral hypoglycemic drugs and usually, he does not check his blood sugar at home. Most recent hemoglobin was seen in his chart was from August, and it was 7.3. He had a history of peripheral vascular disease and he is supposed to see Dr. Beck, the vascular surgeon, next week. He has a history of hypertension which has been under control with lisinopril. In the emergency department, his vital signs were stable. His routine blood work was unremarkable. ESR was normal. C-reactive protein was elevated at 51. X-ray of the left foot revealed mild cortical erosion of the posterior calcaneus worrisome for osteomyelitis. He is being admitted for diabetic left foot nonhealing ulcer/cellulitis/suspected osteomyelitis for evaluation and treatment. - Physical Exam General: Alert, Oriented x3, Cooperative, No apparent distress. HEENT: Atraumatic, PERRLA, EOMI. Neck: Supple, No JVD, Negative Carotid Bruits, Trachea Midline, Thyroid Normal. Lungs: Clear to auscultation, Normal air movement, No rhonchi, No wheeze, No rales. Cardiovascular: Regular rate, Regular Rhythm, Normal S1, Normal S2, PMI Normal. Abdomen: Bowel Sounds Present, Soft, Non Tender, Non-Distended, No Hepato- splenomegaly. Extremities: No clubbing, No cyanosis, No edema Skin: No rashes, No breakdown Neurological: Neuro grossly intact Vital Signs are stable. Assessment and plan: #1 diabetic nonhealing left foot ulcer/cellulitis/suspected osteomyelitis: Admit to [facility] floor, blood culture, wound culture taken at the podiatry office, start IV vancomycin, MRI left foot, podiatry medicine consult, MRSA wound screen, hemoglobin A1c, repeat CBC and BMP tomorrow morning. #2 neglected left Achilles tendon rupture: Plan for immobilization, use walker, PT OT evaluation and treatment. Follow recommendation of the community outreach director. #3 alcohol abuse: Patient is a heavy drinker, plan for CIWA protocol, Ativan as needed, thiamine and folic acid supplement. #4 other chronic medical problems: Stable, continue current medications as above. This note was generated with [employer] dictation software. It may contain incorrect words, spelling, and punctuation that were not noted in checking the note before signing. Code Visit Inpatient E&M: 19166 Init Hosp L3
--- NOTE | 2018-12-09 17:50 | PCM.RX.CS ---
Consult Pharmacy has been consulted to manage selected antiobiotic: Vancomycin Type of Consult: New start Suspected Infection: Osteomyelitis Prior Doses of Antibiotics Received/Current Regimen: VANCOMYCIN 2000MG IV X1 IN ED 12/09/18 @ 1530 Labs: Sodium 136 mmol/L (136-145) 12/09/18 14:40 Potassium 4.1 mmol/L (3.5-5.1) 12/09/18 14:40 Chloride 98 mmol/L (98-107) 12/09/18 14:40 Carbon Dioxide 31.0 mmol/L (21.0-32.0) 12/09/18 14:40 Anion Gap 7 (5-15) 12/09/18 14:40 BUN 12 mg/dL (7-18) 12/09/18 14:40 Creatinine 0.86 mg/dL (0.70-1.30) 12/09/18 14:40 Est GFR (MDRD) Af Amer 113 mL/min (>60) 12/09/18 14:40 Est GFR (MDRD) Non-Af 93 mL/min (>60) 12/09/18 14:40 BUN/Creatinine Ratio 14.0 RATIO (10-20) 12/09/18 14:40 Glucose 172 mg/dL (74-106) H 12/09/18 14:40 Weight used for dosin kg Estimated Creatinine Clearance: 84 ML/MIN Goal Trough: 15-20 mcg/mL Pharmacy Plan for Drug Dosing: PLAN/RECOMMENDATION 1. Vancomycin 1500mg IV Q12hrs to start 12/10/18 @0330 2. Trough scheduled prior to 4th total dose of vancomycin per protocol 12/11/18 @0300 3. Pharmacy Service will continue to monitor and adjust dosing as required.
[2018-12-09 18:00] LABS: Hemoglobin A1c 8.2 % (4.2-6.3)
[2018-12-09] MEDS: 0.9% Normal Saline 1,000 ML 75 ML IV (18:07)
[2018-12-09 18:11] LABS: Bedside Glucose 151 mg/dL (70-110)
[2018-12-09] MEDS: metFORMIN HCl 1,000 MG Tablet 1000 MG PO (18:50)
[2018-12-09 20:33] LABS: M R Staph aureus DNA By PCR Negative (Negative); Probe Check PASS; Specimen Processing Control PASS; Staph aureus DNA By PCR POSITIVE (Negative)
[2018-12-09] MEDS: hydrALAZINE 20 MG/ML Vial 5 MG IV (22:09)
[2018-12-09] MEDS: Insulin Lispro 100 UNIT/ML INSULN.PEN SC (22:11)
[2018-12-09] MEDS: Atorvastatin Calcium 10 MG Tablet 5 MG PO (22:12)
[2018-12-09 22:25] LABS: Bedside Glucose 172 mg/dL (70-110)
[2018-12-10 03:41] VITALS: BP 150/88; PULSE 87; RESP 16; TEMP 37.2; O2SAT 96
[2018-12-10 06:23] LABS: Absolute Lymphocyte Count 2.11 X10^3/ul (0.83-4.51); Absolute Neutrophil Count 4.8 X10^3/uL (2.0-7.7); Basophil# 0.04 X10^3/uL; Basophil% 0.5 % (0-1); Eosinophil# 0.13 X10^3/uL; Eosinophils% 1.6 % (0-5); Hematocrit 34.5 % (40-54); Hemoglobin 11.7 g/dl (13.0-16.5); Lymphocyte # 2.11 X10^3/ul (4.0); Lymphocyte % 26.6 % (19-41); Mean Corp Hgb Conc 33.9 g/gl (32-36); Mean Corpuscular Hgb 30.5 pg (27.0-32.0); Mean Corpuscular Volume 89.8 fL (80-94); Mean Platelet Vol. 9.3 fl (6.2-12.0); Monocyte# 0.84 X10^3/uL; Monocyte% 10.6 % (0-10); Neutrophil % 60.4 % (47-70); Platelet Count 272 K/mm3 (150-450); RBC Distribution Width CV 12.5 % (11.6-14.6); RBC Distribution Width SD 40.4 fl (35.1-43.9); Red Blood Count 3.84 M/mm3 (4.6-6.2); White Blood Count 7.9 K/mm3 (4.4-11.0)
[2018-12-10 06:24] LABS: POSITIVE COUNT NO; POSITIVE DIFFERENTIAL NO; POSITIVE MORPHOLOGY NO
[2018-12-10 06:33] LABS: Anion Gap 7 (5-15); BUN 9 mg/dL (7-18); BUN/Creat Ratio 12.1 RATIO (10-20); Calcium,Total 8.6 mg/dL (8.5-10.1); Chloride 105 mmol/L (98-107); Creatinine, Serum 0.75 mg/dL (0.70-1.30); EST Glomerular Filtration Rate 110 mL/min (>60); Est Glom Filt Rate - Afr Amer 133 mL/min (>60); Estimated Creatinine Clearance 72.16 ml/min; Glucose 144 mg/dL (74-106); Sodium Level 139 mmol/L (136-145)
[2018-12-10 07:07] LABS: Amphetamine Urine VISTA NEGATIVE (<1000 ng/mL); Barbiturate Urine VISTA NEGATIVE (< 200 ng/mL); Benzodiazepine Urine VISTA NEGATIVE (< 200 ng/mL); Cocaine Urine VISTA NEGATIVE (< 300 ng/mL); Ecstacy Urine VISTA NEGATIVE (< 500 ng/mL); Methadone Urine VISTA NEGATIVE (< 300 ng/mL); PCP Urine VISTA NEGATIVE (< 25 ng/mL); THC Urine VISTA POSITIVE (< 50 ng/mL); Vista UDS pH Range 7
[2018-12-10 07:31] LABS: Bedside Glucose 151 mg/dL (70-110)
--- NOTE | 2018-12-10 09:02 | NURSING ---
wound photo: left heel
--- NOTE | 2018-12-10 09:04 | NURSING ---
wound photo: left medial heel
--- NOTE | 2018-12-10 09:17 | MRI_ITS ---
STUDY: MRI LEFT REARFOOT WITHOUT CONTRAST REASON FOR EXAM: Chronic ulcer with recent debridement, osteomyelitis left heel. TECHNIQUE: Standardized fat and water weighted pulse sequences were obtained in all 3 orthogonal planes. COMPARISON: Radiographs 12/09/2018. FINDINGS: There are ulcers at the medial and plantar aspects of the heel with adjacent edema in the subcutis adipose space (inversion recovery sagittal images 6-14). Normal posterior tibialis tendon. Normal flexor digitorum longus tendon. Normal flexor hallucis longus tendon. Normal peroneus longus and brevis tendons. Normal tibialis anterior tendon. Normal extensor hallucis longus tendon. Normal extensor digitorum longus tendons. There is Achilles tendinosis and partial tear of the Achilles tendon in the watershed zone (inversion recovery sagittal images 13-15). There is an ossification in the proximal plantar fascia (T1 sagittal image 13). There is bone edema of the plantar aspect of the posterior tuberosity of the calcaneus (inversion recovery sagittal images 12-19) with decreased T1 bone marrow signal (T1 sagittal images 12-15) and erosion of the plantar cortex of the calcaneus (T1 sagittal images 12-14) consistent with osteomyelitis. There is atrophy with partial fat replacement of the abductor digiti minimi muscle (T1 sagittal image 19). Normal distal tibiofibular syndesmotic ligamentous complex. Normal lateral ligamentous complex. Normal subtalar ligaments and sinus tarsi. Normal deltoid ligamentous complexes. Normal plantar calcaneonavicular (spring) ligament. Normal tibiotalar articulation. Normal talar dome. Normal subtalar articulations. Normal talonavicular articulation. There is a small calcaneocuboid joint effusion (inversion recovery sagittal image 22). Normal navicular-cuneiform articulations. MRI/Lower Ext/No Jt/w/o IMPRESSION: Osteomyelitis of the posterior tuberosity of the calcaneus. Partial tear and tendinosis of the Achilles tendon. Atrophy of the abductor digiti minimi muscle. Small calcaneocuboid joint effusion. Soft tissue ulcers of the heel with adjacent edema in the subcutis adipose space. Electronically Signed: Kristian Slade MD at 10:30 EDT Tel , Service support ,
[2018-12-10 10:30] VITALS: BP 147/91; PULSE 80; RESP 16; TEMP 36.6; O2SAT 96; O2SAT 97
[2018-12-10] MEDS: Folic Acid 1 MG Tablet PO (10:35)
[2018-12-10] MEDS: Aspirin 81 MG TAB.CHEW PO (10:35)
[2018-12-10] MEDS: Thiamine Hydrochloride 100 MG Tablet PO (10:35)
[2018-12-10] MEDS: Enoxaparin 40 MG/0.4 ML Syringe SC (10:35)
[2018-12-10] MEDS: Lisinopril 20 MG Tablet PO (10:35)
[2018-12-10] MEDS: metFORMIN HCl 1,000 MG Tablet 1000 MG PO ×2 (10:35→17:24)
[2018-12-10] MEDS: Glucerna Shake 120 ML LIQUID PO ×2 (10:37→17:24)
[2018-12-10 11:20] LABS: Bacteria 0 SEEN /hpf (None Seen); Mucous, Urine 0 SEEN /hpf (<or=2+); Red Blood Cells-Urine 0 SEEN /hpf (0-5); Squamous Epithelial Cells - UA 0 SEEN /hpf (0-5); White Blood Cells 0 SEEN /hpf (0-5)
[2018-12-10 11:21] LABS: Color, Urine Yellow (Yellow); Glucose, Dipstick Normal (Normal); Ketone-Dipstick Negative (Negative); Leukocyte Esterase-Dipstick Negative /ul (Negative); Nitrite-Dipstick Negative (Negative); Occult Blood-Urine Negative /ul (Negative); Protein-Dipstick Negative (Negative); Specific Gravity, Urine 1.005 (1.002-1.030); Urine Bilirubin Dipstick Negative (Negative); Urine Clarity Clear (Clear); Urine Urobilinogen Normal (Normal)
[2018-12-10] MEDS: Insulin Lispro 100 UNIT/ML INSULN.PEN SC (12:32)
[2018-12-10 12:41] LABS: Bedside Glucose 243 mg/dL (70-110)
--- NOTE | 2018-12-10 12:49 | PCM.PROGNOTE ---
Patient Problems: Active and Suspected Problems Osteomyelitis (Suspected) Subjective: This 73 year old diabetic male was admitted to hospital yesterday through the ER after being seen at the wound healing center by Dr. Cifuentes. Patient was initially seeing Dr. Cifuentes for a ruptured achilles tendon that was being treated conservatively with CAM walker. Patient developed an ulcer to the plantar left heel. Patient has been seeing Dr. Cifuentes for heel ulcer at the wound healing center. He says this has slowly been getting worse over the last few weeks and got much worse over the course of the last week. Patient is currently resting bedside this afternoon and feels well and has an appetite. He currently denies any feelings of nausea, vomiting, fever, or chills. He was seen today with brother and sister in law present. - Physical Exam General: Alert, Oriented x3, Cooperative, No apparent distress Extremities: No cyanosis, Capillary Refill Less than 3 Seconds, No Calf Tenderness - Negative Abhishek and Irwin signs left lower extremity, Diminished Peripheral Pulses, Edema - Left lower extremity edema Skin: Ulcer/ Wound - Ulcer to plantar and medial heel of the left foot with fat layer exposed. Ulcer measures approximately 7 cm x 2 cm and plantar aspect of ulcer probes deep to periosteum. Ulcer covered by fibrotic plug with some fibrinous drainage noted. Very slight malodor. No purulence appreciated today. Cellulitis has improved since yesterday. No significant warmth to the ulcer site. The peripheral skin is hairless and atrophic. There is no fluctuance or bogginess appreciated around the ulcer site. Musculoskeletal: No Tenderness to Palpation of Joints or Extremities, Muscle Wasting, - - Active range of motion toes x5 left foot. Neurological: - - Loss of epicritic sensation left lower extremity Psych/Mental Status: Normal Affect, Appropriate Vital Signs Temp Pulse Resp BP Pulse Ox 97.8 F 80 16 147/91 H 97 12/10/18 10:30 12/10/18 10:30 12/10/18 10:30 12/10/18 10:30 12/10/18 10:30 Oxygen Delivery Method Room Air Weight: 92.079 kg Body Mass Index (BMI) 28.3 Intake and Output for Last 24 Hours 12/08/18 12/09/18 12/10/18 23:59 23:59 23:59 Intake Total 3377 / 3377 Output Total 980 / 980 Balance 2397 / 2397 Laboratory Tests Past 24 Hrs 12/09/18 12/09/18 12/09/18 14:40 14:40 14:40 WBC 9.5 RBC 4.16 L Hgb 12.7 L Hct 37.2 L MCV 89.4 MCH 30.5 MCHC 34.1 RDW 12.7 RDW Differential 41.1 Plt Count 317 MPV 9.2 Immature Gran % (Auto) 0.400 Neut % (Auto) 62.2 Lymph % (Auto) 24.9 Armstrong % (Auto) 10.4 H Eos % (Auto) 1.6 Baso % (Auto) 0.5 Absolute Neuts (auto) 5.9 Absolute Lymphs (auto) 2.36 Total Counted Not Reportable ESR 18 Sodium 136 Potassium 4.1 Chloride 98 Carbon Dioxide 31.0 Anion Gap 7 BUN 12 Creatinine 0.86 Estim Creat Clear Calc 83.91 Est GFR (MDRD) Af Amer 113 Est GFR (MDRD) Non-Af 93 BUN/Creatinine Ratio 14.0 Glucose 172 H Hemoglobin A1c Calcium 9.4 C-React Prot Ext Range 51.60 H Urine Color Urine Clarity Urine pH Ur Specific [place] Urine Protein Urine Glucose (UA) Urine Ketones Urine Occult Blood Urine Nitrite Urine Bilirubin Urine Urobilinogen Ur Leukocyte Esterase Urine RBC Urine WBC Ur Squamous Epith Cells Urine Bacteria Urine Mucus Urine Opiates Screen Urine Methadone Screen Ur Barbiturates Screen Ur Phencyclidine Scrn Ur Amphetamines Screen U Methamphetamin-MDMA U Benzodiazepines Scrn Urine Cocaine Screen U Cannabinoids Screen Ur Drug Screen Comment Ethyl Alcohol 13.0 S.aureus Protein A PCR MRSA (PCR) 12/09/18 12/09/18 12/10/18 14:40 18:25 05:32 WBC 7.9 RBC 3.84 L Hgb 11.7 L Hct 34.5 L MCV 89.8 MCH 30.5 MCHC 33.9 RDW 12.5 RDW Differential 40.4 Plt Count 272 MPV 9.3 Immature Gran % (Auto) 0.300 Neut % (Auto) 60.4 Lymph % (Auto) 26.6 Armstrong % (Auto) 10.6 H Eos % (Auto) 1.6 Baso % (Auto) 0.5 Absolute Neuts (auto) 4.8 Absolute Lymphs (auto) 2.11 Total Counted Not Reportable ESR Sodium Potassium Chloride Carbon Dioxide Anion Gap BUN Creatinine Estim Creat Clear Calc Est GFR (MDRD) Af Amer Est GFR (MDRD) Non-Af BUN/Creatinine Ratio Glucose Hemoglobin A1c 8.2 H Calcium C-React Prot Ext Range Urine Color Urine Clarity Urine pH Ur Specific [place] Urine Protein Urine Glucose (UA) Urine Ketones Urine Occult Blood Urine Nitrite Urine Bilirubin Urine Urobilinogen Ur Leukocyte Esterase Urine RBC Urine WBC Ur Squamous Epith Cells Urine Bacteria Urine Mucus Urine Opiates Screen Urine Methadone Screen Ur Barbiturates Screen Ur Phencyclidine Scrn Ur Amphetamines Screen U Methamphetamin-MDMA U Benzodiazepines Scrn Urine Cocaine Screen U Cannabinoids Screen Ur Drug Screen Comment Ethyl Alcohol S.aureus Protein A PCR POSITIVE H MRSA (PCR) Negative 12/10/18 12/10/18 12/10/18 05:32 06:40 06:40 WBC RBC Hgb Hct MCV MCH MCHC RDW RDW Differential Plt Count MPV Immature Gran % (Auto) Neut % (Auto) Lymph % (Auto) Armstrong % (Auto) Eos % (Auto) Baso % (Auto) Absolute Neuts (auto) Absolute Lymphs (auto) Total Counted ESR Sodium 139 Potassium 4.0 Chloride 105 Carbon Dioxide 27.0 Anion Gap 7 BUN 9 Creatinine 0.75 Estim Creat Clear Calc 72.16 Est GFR (MDRD) Af Amer 133 Est GFR (MDRD) Non-Af 110 BUN/Creatinine Ratio 12.1 Glucose 144 H Hemoglobin A1c Calcium 8.6 C-React Prot Ext Range Urine Color Yellow Urine Clarity Clear Urine pH 7.0 Ur Specific [place] 1.005 Urine Protein Negative Urine Glucose (UA) Normal Urine Ketones Negative Urine Occult Blood Negative Urine Nitrite Negative Urine Bilirubin Negative Urine Urobilinogen Normal Ur Leukocyte Esterase Negative Urine RBC 0 SEEN Urine WBC 0 SEEN Ur Squamous Epith Cells 0 SEEN Urine Bacteria 0 SEEN Urine Mucus 0 SEEN Urine Opiates Screen NEGATIVE Urine Methadone Screen NEGATIVE Ur Barbiturates Screen NEGATIVE Ur Phencyclidine Scrn NEGATIVE Ur Amphetamines Screen NEGATIVE U Methamphetamin-MDMA NEGATIVE U Benzodiazepines Scrn NEGATIVE Urine Cocaine Screen NEGATIVE U Cannabinoids Screen POSITIVE H Ur Drug Screen Comment Ethyl Alcohol S.aureus Protein A PCR MRSA (PCR) POC Glucose 12/10/18 12/10/18 12/09/18 12:30 06:39 22:02 POC Glucose 243 H 151 H 172 H 12/09/18 17:05 POC Glucose 151 H Medical Necessity - Tobacco Use Smoking Status: Former smoker Tobacco Use: Cigars Assessment/Plan Ulcer left foot Suspected OM left calcaneus cellulitis DM with neuropathy Other comorbidities This patient was carefully examined and evaluated resting bedside today. Patient's brother and [id number] were present in the room during evaluation. Vital signs are currently stable. WBC 7.9 today. ESR was 18 and CRP was 51.6 yesterday. Preliminary deep wound cultures taken yesterday show mixed gram-positive and gram-negative organisms. Blood culture results still pending. Infectious disease consult is appreciated for this patient. Patient currently on IV antibiotics. Patient's ulcer site was carefully examined and evaluated today to the plantar medial left heel. The surrounding cellulitis has improved since yesterday. Very slight malodor still appreciated. No purulence noted today. The ulcer site was then carefully dressed with Betadine wet-to-dry dressing followed by ABD and Kerlix. This patient is noted to have PVD and is going to be seeing Dr. Beck with vascular surgery next week. The patient is to remain nonweightbearing to the left foot. 3 view left foot x-ray was taken yesterday that showed mild cortical erosion of the posterior tuberosity of the calcaneus that was worrisome for osteomyelitis. MRI was taken of the left foot that showed suspected osteomyelitis as well of the posterior tuberosity of the calcaneus, as well as the patient's partial tear of his Achilles tendon which the patient had already been in treatment for. At this time we discussed all of the possible treatment options for this patient including both conservative and surgical treatment as well as the risks, benefits, and possible complications of each of these. All questions were answered to the patient's and his present family members satisfaction. At this time, the plan is to take the patient to surgery tomorrow for debridement of all necrotic, nonviable, infected soft tissue of the left foot with bone biopsy. Patient is aware that he is at risk for amputation in the future. Consent will be obtained for the above-stated procedure. Surgical clearance by primary team is appreciated as well as continued medical management. Podiatry will continue to follow this patient closely while in house. Please contact with any questions.
--- NOTE | 2018-12-10 14:20 | PCM.PN.HOSP ---
Patient Problems: Active and Suspected Problems Osteomyelitis (Suspected) Subjective: No new events. Vitals/I&O's: Vital Signs Temp Pulse Resp BP Pulse Ox 36.6 C 80 16 147/91 H 97 12/10/18 10:30 12/10/18 10:30 12/10/18 10:30 12/10/18 10:30 12/10/18 10:30 Oxygen Delivery Method Room Air Weight: 92.079 kg Body Mass Index (BMI) 28.3 Intake and Output for Last 24 Hours 12/08/18 12/09/18 12/10/18 23:59 23:59 23:59 Intake Total 3377 / 3377 Output Total 980 / 980 Balance 2397 / 2397 General: Alert, No apparent distress HEENT: Atraumatic, Normocephalic Oral: Moist Mucosa, No Gingival or Mucosal Lesions/ Ulcerations Neck: No Nodes, Thyroid Normal Size and Texture Lungs: Clear to auscultation, Normal air movement, No rhonchi, No wheeze Cardiovascular: Regular rate, Regular Rhythm, Normal S1, Normal S2, No murmurs Abdomen: Bowel Sounds Present, Soft, Non Tender, Non-Distended, No Hepato-splenomegaly Extremities: - - left foot and ankle wrapped in Kerlix--did not remove Skin: - - looking at wound care pictures--stage 3 ulcer on medial foot. stage 3-4 ulcer on heel. Psych/Mental Status: Normal Affect, Appropriate Laboratory Results 12/09/18 14:40: WBC 9.5, RBC 4.16 L, Hgb 12.7 L, Hct 37.2 L, MCV 89.4, MCH 30.5, MCHC 34.1, RDW 12.7, RDW Differential 41.1, Plt Count 317, MPV 9.2, Immature Gran % (Auto) 0.400, Neut % (Auto) 62.2, Lymph % (Auto) 24.9, [place] % (Auto) 10.4 H, Eos % (Auto) 1.6, Baso % (Auto) 0.5, Absolute Neuts (auto) 5.9, Absolute Lymphs (auto) 2.36, Total Counted Not Reportable, ESR 18 12/09/18 14:40: Sodium 136, Potassium 4.1, Chloride 98, Carbon Dioxide 31.0, Anion Gap 7, BUN 12, Creatinine 0.86, Estim Creat Clear Calc 83.91, Est GFR (MDRD) Af Amer 113, Est GFR (MDRD) Non-Af 93, BUN/Creatinine Ratio 14.0, Glucose 172 H, Calcium 9.4, C-React Prot Ext Range 51.60 H 12/09/18 14:40: Ethyl Alcohol 13.0 12/09/18 14:40: Hemoglobin A1c 8.2 H 12/09/18 17:05: POC Glucose 151 H 12/09/18 18:25: S.aureus Protein A PCR POSITIVE H, MRSA (PCR) Negative 12/09/18 22:02: POC Glucose 172 H 12/10/18 05:32: WBC 7.9, RBC 3.84 L, Hgb 11.7 L, Hct 34.5 L, MCV 89.8, MCH 30.5, MCHC 33.9, RDW 12.5, RDW Differential 40.4, Plt Count 272, MPV 9.3, Immature Gran % (Auto) 0.300, Neut % (Auto) 60.4, Lymph % (Auto) 26.6, [place] % (Auto) 10.6 H, Eos % (Auto) 1.6, Baso % (Auto) 0.5, Absolute Neuts (auto) 4.8, Absolute Lymphs (auto) 2.11, Total Counted Not Reportable 12/10/18 05:32: Sodium 139, Potassium 4.0, Chloride 105, Carbon Dioxide 27.0, Anion Gap 7, BUN 9, Creatinine 0.75, Estim Creat Clear Calc 72.16, Est GFR (MDRD) Af Amer 133, Est GFR (MDRD) Non-Af 110, BUN/Creatinine Ratio 12.1, Glucose 144 H, Calcium 8.6 12/10/18 06:39: POC Glucose 151 H 12/10/18 06:40: Urine Opiates Screen NEGATIVE, Urine Methadone Screen NEGATIVE, Ur Barbiturates Screen NEGATIVE, Ur Phencyclidine Scrn NEGATIVE, Ur Amphetamines Screen NEGATIVE, U Methamphetamin-MDMA NEGATIVE, U Benzodiazepines Scrn NEGATIVE, Urine Cocaine Screen NEGATIVE, U Cannabinoids Screen POSITIVE H, Ur Drug Screen Comment 12/10/18 06:40: Urine Color Yellow, Urine Clarity Clear, Urine pH 7.0, Ur Specific [place] 1.005, Urine Protein Negative, Urine Glucose (UA) Normal, Urine Ketones Negative, Urine Occult Blood Negative, Urine Nitrite Negative, Urine Bilirubin Negative, Urine Urobilinogen Normal, Ur Leukocyte Esterase Negative, Urine RBC 0 SEEN, Urine WBC 0 SEEN, Ur Squamous Epith Cells 0 SEEN, Urine Bacteria 0 SEEN, Urine Mucus 0 SEEN 12/10/18 12:30: POC Glucose 243 H Current Medications Acetaminophen (Tylenol) 650 mg PO Q6H PRN PRN PRN Reason: Mild Pain (1-3)/Temp > 100.7 F Aspirin (Aspirin, Baby) 81 mg PO DAILY@0800 [facility] Last Admin: 12/10/18 10:35 Dose: 81 mg Atorvastatin Calcium (Lipitor) 5 mg PO QHS [facility] Last Admin: 12/09/18 22:12 Dose: 5 mg Dextrose (D50w Syringe) 0 gm IV X1 PRN; Protocol PRN Reason: Hypoglycemia Enoxaparin Sodium (Lovenox) 40 mg SC DAILY@1000 [facility] Last Admin: 12/10/18 10:35 Dose: 40 mg Folic Acid (Folic Acid) 1 mg PO DAILY@0800 [facility] Last Admin: 12/10/18 10:35 Dose: 1 mg Glucagon () 1 mg IM .X1 PRN PRN Reason: Hypoglycemia Hydralazine HCl (Apresoline Iv) 5 mg IV Q4H PRN PRN PRN Reason: HYPERTENSION Last Admin: 12/09/18 22:09 Dose: 5 mg Vancomycin HCl 1,500 mg/ (Sodium Chloride) 530 mls @ 250 mls/hr IV Q12H [facility] Last Admin: 12/10/18 03:44 Dose: 250 mls/hr Vancomycin IV Pharmacy to Dose (1 ea/ Sodium Chloride) 500 mls @ 250 mls/hr IV PRN PRN; Protocol PRN Reason: Rx to Dose Insulin Human Lispro (Humalog Kwikpen (Bkc)) 0 unit SC ACHS [facility]; Protocol Last Admin: 12/10/18 12:32 Dose: 3 u Lisinopril (Zestril) 20 mg PO DAILY [facility] Last Admin: 12/10/18 10:35 Dose: 20 mg Lorazepam (Ativan) 1 mg PO Q8H PRN PRN PRN Reason: Alcohol Withdrawal Metformin HCl (Glucophage) 1,000 mg PO BIDCM [facility] Last Admin: 12/10/18 10:35 Dose: 1,000 mg Nutritional Formula (Lactose Free) (Glucerna Shake) 120 ml PO TIDCM [facility] Last Admin: 12/10/18 10:37 Dose: 120 ml Ondansetron HCl (Zofran) 4 mg IV Q8H PRN PRN PRN Reason: NAUSEA/VOMITING Oxycodone HCl (Oxyir) 5 mg PO Q4H PRN PRN PRN Reason: Moderate Pain (4-6/10) Senna/Docusate Sodium (Senokot-S, Emily-Colace) 2 tablet PO BID PRN PRN PRN Reason: Constipation Sodium Chloride () 5 - 15 ml IV UD PRN PRN Reason: SALINE FLUSH Thiamine HCl (Vitamin B1) 100 mg PO DAILYCM [facility] Last Admin: 12/10/18 10:35 Dose: 100 mg Medical Necessity - Tobacco Use Smoking Status: Former smoker Tobacco Use: Cigars Assessment/Plan 1. 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 Griffin, plan is for debridement and bone biospy on 12/11. Patient with multiple medical comorbidities, including PAD. Patient is to follow with Dr. Beck for the PAD. Medically, other than the PAD, patient is medically optimized to proceed for surgery. 2.PAD TRISTIAN on 10/22 shows severely diminished digital-brachial index on left. on ASA follow up with Dr. Beck as outpt complicates healing until adequately treated 3. DM2 uncontrolled on metforming and SSI A1C 8.2 start basal insulin 4. VTE prophylaxis: LMWH Code Visit Inpatient E&M: 80203 Subs Hosp L2
--- NOTE | 2018-12-10 14:32 | PN_ITS ---
Patient Problems: Active and Suspected Problems Osteomyelitis (Suspected) Subjective: No new events. Vitals/I&O's: Vital Signs Temp Pulse Resp BP Pulse Ox 36.6 C 80 16 147/91 H 97 12/10/18 10:30 12/10/18 10:30 12/10/18 10:30 12/10/18 10:30 12/10/18 10:30 Oxygen Delivery Method Room Air Weight: 92.079 kg Body Mass Index (BMI) 28.3 Intake and Output for Last 24 Hours 12/08/18 12/09/18 12/10/18 23:59 23:59 23:59 Intake Total 3377 / 3377 Output Total 980 / 980 Balance 2397 / 2397 General: Alert, No apparent distress HEENT: Atraumatic, Normocephalic Oral: Moist Mucosa, No Gingival or Mucosal Lesions/ Ulcerations Neck: No Nodes, Thyroid Normal Size and Texture Lungs: Clear to auscultation, Normal air movement, No rhonchi, No wheeze Cardiovascular: Regular rate, Regular Rhythm, Normal S1, Normal S2, No murmurs Abdomen: Bowel Sounds Present, Soft, Non Tender, Non-Distended, No Hepato- splenomegaly Extremities: - - left foot and ankle wrapped in Kerlix--did not remove Skin: - - looking at wound care pictures--stage 3 ulcer on medial foot. stage 3- 4 ulcer on heel. Psych/Mental Status: Normal Affect, Appropriate Laboratory Results 12/09/18 14:40: WBC 9.5, RBC 4.16 L, Hgb 12.7 L, Hct 37.2 L, MCV 89.4, MCH 30.5, MCHC 34.1, RDW 12.7, RDW Differential 41.1, Plt Count 317, MPV 9.2, Immature Gran % (Auto) 0.400, Neut % (Auto) 62.2, Lymph % (Auto) 24.9, [place] % (Auto) 10.4 H, Eos % (Auto) 1.6, Baso % (Auto) 0.5, Absolute Neuts (auto) 5.9, Absolute Lymphs (auto) 2.36, Total Counted Not Reportable, ESR 18 12/09/18 14:40: Sodium 136, Potassium 4.1, Chloride 98, Carbon Dioxide 31.0, Anion Gap 7, BUN 12, Creatinine 0.86, Estim Creat Clear Calc 83.91, Est GFR (MDRD) Af Amer 113, Est GFR (MDRD) Non-Af 93, BUN/Creatinine Ratio 14.0, Glucose 172 H, Calcium 9.4, C-React Prot Ext Range 51.60 H 12/09/18 14:40: Ethyl Alcohol 13.0 12/09/18 14:40: Hemoglobin A1c 8.2 H 12/09/18 17:05: POC Glucose 151 H 12/09/18 18:25: S.aureus Protein A PCR POSITIVE H, MRSA (PCR) Negative 12/09/18 22:02: POC Glucose 172 H 12/10/18 05:32: WBC 7.9, RBC 3.84 L, Hgb 11.7 L, Hct 34.5 L, MCV 89.8, MCH 30.5, MCHC 33.9, RDW 12.5, RDW Differential 40.4, Plt Count 272, MPV 9.3, Immature Gran % (Auto) 0.300, Neut % (Auto) 60.4, Lymph % (Auto) 26.6, [place] % (Auto) 10.6 H, Eos % (Auto) 1.6, Baso % (Auto) 0.5, Absolute Neuts (auto) 4.8, Absolute Lymphs (auto) 2.11, Total Counted Not Reportable 12/10/18 05:32: Sodium 139, Potassium 4.0, Chloride 105, Carbon Dioxide 27.0, Anion Gap 7, BUN 9, Creatinine 0.75, Estim Creat Clear Calc 72.16, Est GFR (MDRD) Af Amer 133, Est GFR (MDRD) Non-Af 110, BUN/Creatinine Ratio 12.1, Glucose 144 H, Calcium 8.6 12/10/18 06:39: POC Glucose 151 H 12/10/18 06:40: Urine Opiates Screen NEGATIVE, Urine Methadone Screen NEGATIVE, Ur Barbiturates Screen NEGATIVE, Ur Phencyclidine Scrn NEGATIVE, Ur Amphetamines Screen NEGATIVE, U Methamphetamin-MDMA NEGATIVE, U Benzodiazepines Scrn NEGATIVE, Urine Cocaine Screen NEGATIVE, U Cannabinoids Screen POSITIVE H, Ur Drug Screen Comment 12/10/18 06:40: Urine Color Yellow, Urine Clarity Clear, Urine pH 7.0, Ur Specific [place] 1.005, Urine Protein Negative, Urine Glucose (UA) Normal, Urine Ketones Negative, Urine Occult Blood Negative, Urine Nitrite Negative, Urine Bilirubin Negative, Urine Urobilinogen Normal, Ur Leukocyte Esterase Negative, Urine RBC 0 SEEN, Urine WBC 0 SEEN, Ur Squamous Epith Cells 0 SEEN, Urine Bacteria 0 SEEN, Urine Mucus 0 SEEN 12/10/18 12:30: POC Glucose 243 H Current Medications Acetaminophen (Tylenol) 650 mg PO Q6H PRN PRN PRN Reason: Mild Pain (1-3)/Temp > 100.7 F Aspirin (Aspirin, Baby) 81 mg PO DAILY@0800 [facility] Last Admin: 12/10/18 10:35 Dose: 81 mg Atorvastatin Calcium (Lipitor) 5 mg PO QHS [facility] Last Admin: 12/09/18 22:12 Dose: 5 mg Dextrose (D50w Syringe) 0 gm IV X1 PRN; Protocol PRN Reason: Hypoglycemia Enoxaparin Sodium (Lovenox) 40 mg SC DAILY@1000 [facility] Last Admin: 12/10/18 10:35 Dose: 40 mg Folic Acid (Folic Acid) 1 mg PO DAILY@0800 [facility] Last Admin: 12/10/18 10:35 Dose: 1 mg Glucagon () 1 mg IM .X1 PRN PRN Reason: Hypoglycemia Hydralazine HCl (Apresoline Iv) 5 mg IV Q4H PRN PRN PRN Reason: HYPERTENSION Last Admin: 12/09/18 22:09 Dose: 5 mg Vancomycin HCl 1,500 mg/ (Sodium Chloride) 530 mls @ 250 mls/hr IV Q12H [facility] Last Admin: 12/10/18 03:44 Dose: 250 mls/hr Vancomycin IV Pharmacy to Dose (1 ea/ Sodium Chloride) 500 mls @ 250 mls/hr IV PRN PRN; Protocol PRN Reason: Rx to Dose Insulin Human Lispro (Humalog Kwikpen (Bkc)) 0 unit SC ACHS [facility]; Protocol Last Admin: 12/10/18 12:32 Dose: 3 u Lisinopril (Zestril) 20 mg PO DAILY [facility] Last Admin: 12/10/18 10:35 Dose: 20 mg Lorazepam (Ativan) 1 mg PO Q8H PRN PRN PRN Reason: Alcohol Withdrawal Metformin HCl (Glucophage) 1,000 mg PO BIDCM [facility] Last Admin: 12/10/18 10:35 Dose: 1,000 mg Nutritional Formula (Lactose Free) (Glucerna Shake) 120 ml PO TIDCM [facility] Last Admin: 12/10/18 10:37 Dose: 120 ml Ondansetron HCl (Zofran) 4 mg IV Q8H PRN PRN PRN Reason: NAUSEA/VOMITING Oxycodone HCl (Oxyir) 5 mg PO Q4H PRN PRN PRN Reason: Moderate Pain (4-6/10) Senna/Docusate Sodium (Senokot-S, Emily-Colace) 2 tablet PO BID PRN PRN PRN Reason: Constipation Sodium Chloride () 5 - 15 ml IV UD PRN PRN Reason: SALINE FLUSH Thiamine HCl (Vitamin B1) 100 mg PO DAILYCM [facility] Last Admin: 12/10/18 10:35 Dose: 100 mg Medical Necessity - Tobacco Use Smoking Status: Former smoker Tobacco Use: Cigars Assessment/Plan 1. Left Calcaneus osteomyelitis foot wounds * on Vancomycin * Discussed with Dr. Griffin, plan is for debridement and bone biospy on 12/11. Patient with multiple medical comorbidities, including PAD. Patient is to follow with Dr. Beck for the PAD. Medically, other than the PAD, patient is medically optimized to proceed for surgery. 2.PAD * TRISTIAN on 10/22 shows severely diminished digital-brachial index on left. * on ASA * follow up with Dr. Beck as outpt * complicates healing until adequately treated 3. DM2 * uncontrolled * on metforming and SSI * A1C 8.2 * start basal insulin 4. VTE prophylaxis: LMWH Code Visit Inpatient E&M: 09041 Subs Hosp L2
[2018-12-10 15:05] VITALS: BP 141/89; PULSE 91; RESP 16; TEMP 37; O2SAT 98
[2018-12-10] MEDS: 0.9% NaCl Peripheral Flush Adult/Peds IV (15:12)
[2018-12-10 17:35] LABS: Bedside Glucose 148 mg/dL (70-110)
[2018-12-10 20:26] VITALS: BP 140/83; PULSE 80; RESP 16; TEMP 37.2; O2SAT 98
[2018-12-10] MEDS: MELATONIN 3 MG TABLET PO (21:05)
[2018-12-10] MEDS: Atorvastatin Calcium 10 MG Tablet 5 MG PO (21:05)
[2018-12-10 21:20] LABS: Bedside Glucose 146 mg/dL (70-110)
[2018-12-11] VITALS (8 sets, daily range): BP systolic 141–169; BP diastolic 72–96; PULSE 79–89; RESP 14–18; TEMP 37.1–37.3; O2SAT 95–98; BMI 28.3
[2018-12-11 03:40] LABS: Vancomycin, Trough Level 15.3 ug/mL (5.0-15.0)
[2018-12-11] MEDS: 0.9% NaCl Peripheral Flush Adult/Peds IV ×2 (03:45→17:12)
--- NOTE | 2018-12-11 04:00 | PCM.RX.CS ---
Consult Pharmacy has been consulted to manage selected antiobiotic: Vancomycin Type of Consult: Follow-up Suspected Infection: Osteomyelitis Prior Doses of Antibiotics Received/Current Regimen: Medications Vancomycin HCl 1,500 mg/ (Sodium Chloride) 530 mls @ 250 mls/hr IV Q12H [facility] Last Admin: 12/11/18 03:45 Dose: 250 mls/hr Labs: Sodium 139 mmol/L (136-145) 12/10/18 05:32 Potassium 4.0 mmol/L (3.5-5.1) 12/10/18 05:32 Chloride 105 mmol/L (98-107) 12/10/18 05:32 Carbon Dioxide 27.0 mmol/L (21.0-32.0) 12/10/18 05:32 Anion Gap 7 (5-15) 12/10/18 05:32 BUN 9 mg/dL (7-18) 12/10/18 05:32 Creatinine 0.75 mg/dL (0.70-1.30) 12/10/18 05:32 Est GFR (MDRD) Af Amer 133 mL/min (>60) 12/10/18 05:32 Est GFR (MDRD) Non-Af 110 mL/min (>60) 12/10/18 05:32 BUN/Creatinine Ratio 12.1 RATIO (10-20) 12/10/18 05:32 Glucose 144 mg/dL (74-106) H 12/10/18 05:32 Vancomycin Trough 15.3 ug/mL (5.0-15.0) H 12/11/18 03:10 Weight used for dosin kg Estimated Creatinine Clearance: 72 Goal Trough: 15-20 mcg/mL Pharmacy Plan for Drug Dosing: Trough level of 15.3 within target range. Will continue 1500mg q12h and re-draw trough in 4 days. Pharmacy Service will continue to monitor and adjust dosing as required. Follow-Up Labs: Trough Vancomycin Labs to be done on [date and time ordered]: 12/15/18 @0300
--- NOTE | 2018-12-11 05:55 | EKG12_ITS ---
Test Reason : AM EKG Blood Pressure : / mmHG Vent. Rate : 085 BPM Atrial Rate : 085 BPM P-R Int : 134 ms QRS Dur : 086 ms QT Int : 358 ms P-R-T Axes : 068 060 069 degrees QTc Int : 426 ms Normal sinus rhythm Normal ECG When compared with ECG of 13-JUL-2015 13:52, No significant change was found Confirmed by MARIA DE JESUS RIVERO, EFRAIN ([id number]), web content editor MYRANDA ANDERSON ([id number]) on 12/15/2018 11:22:19 AM Referred By: Ky Enrique Confirmed By:EFRAIN PRETTY MD
[2018-12-11 06:18] LABS: Absolute Lymphocyte Count 2.42 X10^3/ul (0.83-4.51); Absolute Neutrophil Count 5.2 X10^3/uL (2.0-7.7); Basophil# 0.03 X10^3/uL; Basophil% 0.4 % (0-1); Eosinophil# 0.13 X10^3/uL; Eosinophils% 1.5 % (0-5); Hematocrit 33.1 % (40-54); Hemoglobin 11.3 g/dl (13.0-16.5); Lymphocyte # 2.42 X10^3/ul (4.0); Lymphocyte % 28.8 % (19-41); Mean Corp Hgb Conc 34.1 g/gl (32-36); Mean Corpuscular Hgb 30.6 pg (27.0-32.0); Mean Corpuscular Volume 89.7 fL (80-94); Mean Platelet Vol. 8.9 fl (6.2-12.0); Monocyte# 0.63 X10^3/uL; Monocyte% 7.5 % (0-10); Neutrophil # 5.18 X10^3/uL (2.7-7.7); Neutrophil % 61.6 % (47-70); Platelet Count 254 K/mm3 (150-450); RBC Distribution Width CV 12.7 % (11.6-14.6); RBC Distribution Width SD 40.9 fl (35.1-43.9); Red Blood Count 3.69 M/mm3 (4.6-6.2); White Blood Count 8.4 K/mm3 (4.4-11.0)
[2018-12-11 06:20] LABS: POSITIVE COUNT NO; POSITIVE DIFFERENTIAL NO; POSITIVE MORPHOLOGY NO
[2018-12-11 06:23] LABS: International Normalized Ratio 1.1
[2018-12-11 06:24] LABS: Partial Thromboplast Time 29.7 Seconds (24.1-36.2)
[2018-12-11 06:35] LABS: AST(SGOT) 15 U/L (15-37); Alanine Aminotransfer ALT/SGPT 22 U/L (16-61); Albumin, Serum 2.9 g/dL (3.2-5.0); Alkaline Phosphatase 74 U/L (45-117); Anion Gap 7 (5-15); BUN 9 mg/dL (7-18); BUN/Creat Ratio 13.2 RATIO (10-20); Bilirubin, Direct 0.11 mg/dL (0.00-0.30); Calcium,Total 8.9 mg/dL (8.5-10.1); Chloride 105 mmol/L (98-107); Creatinine, Serum 0.68 mg/dL (0.70-1.30); EST Glomerular Filtration Rate 121 mL/min (>60); Est Glom Filt Rate - Afr Amer 147 mL/min (>60); Estimated Creatinine Clearance 72.16 ml/min; Globulin 3.8 g/dL (2.2-4.2); Glucose 155 mg/dL (74-106); Potassium 3.9 mmol/L (3.5-5.1); Protein, Total 6.7 g/dL (6.4-8.2); Sodium Level 139 mmol/L (136-145)
[2018-12-11 06:46] LABS: Bedside Glucose 167 mg/dL (70-110)
[2018-12-11] MEDS: Lisinopril 20 MG Tablet PO (09:14)
--- NOTE | 2018-12-11 10:29 | NURSING ---
Pt scheduled for surgery today per Dr Griffin. will leave dressing in place.
--- NOTE | 2018-12-11 12:39 | CASEMGMT ---
SW spoke w/pt in regard to alcohol use. Pt denies that his alcohol use is a problem. Pt states he has not drank much in the last two weeks. Pt states he did not drink on Friday or Friday--then clarified had one or two beers. On Friday he had six or seven. Pt states it depends on what he has going on, how much he drinks. When he does not have a lot going on then he drinks more. SW inquired if the physician states the alcohol is affecting his health, would he be able to stop. Pt states he would. Pt declined any information for any support in regard to stopping drinking. SW inquired if he ever has been to AA or in counseling. Pt states he went to a meeting once when he had to after being stopped at a check stop. Pt then states he has a lot of support from family and friends. No further social service needs, pt declined any referrals in regard to alcohol use at this time, denies that his alcohol use is an issue. LYNN Mello
[2018-12-11 12:45] LABS: Bedside Glucose 158 mg/dL (70-110)
--- NOTE | 2018-12-11 13:11 | PN_ITS ---
Patient Problems: Active and Suspected Problems Osteomyelitis (Suspected) Subjective: No new complaints. Vitals/I&O's: Vital Signs Temp Pulse Resp BP Pulse Ox 37.1 C 79 18 169/87 H 97 12/11/18 09:05 12/11/18 09:05 12/11/18 09:05 12/11/18 09:05 12/11/18 09:05 Oxygen Delivery Method Room Air Weight: 92.079 kg Body Mass Index (BMI) 28.3 Intake and Output for Last 24 Hours 12/09/18 12/10/18 12/11/18 23:59 23:59 23:59 Intake Total 4581 / 4581 1646 / 1646 Output Total 1880 / 1880 1650 / 1650 Balance 2701 / 2701 -4 / -4 General: Alert, No apparent distress HEENT: Atraumatic, Normocephalic Oral: Moist Mucosa, No Gingival or Mucosal Lesions/ Ulcerations Neck: No Nodes, Thyroid Normal Size and Texture Lungs: Clear to auscultation, Normal air movement, No rhonchi, No wheeze Cardiovascular: Regular rate, Regular Rhythm, Normal S1, Normal S2, No murmurs Abdomen: Bowel Sounds Present, Soft, Non Tender, Non-Distended, No Hepato- splenomegaly Extremities: No edema, No Calf Tenderness, - - left foot and ankle wrapped--did not remove. Microbiology Past 72 Hours 12/09/18 14:50 Blood Culture (Wb) - Right Wrist Blood Culture - Preliminary No growth in 48 hours. 12/09/18 14:40 Blood Culture (Wb) - Anticubital Right Blood Culture - Preliminary No growth in 48 hours. Laboratory Results 12/10/18 17:18: POC Glucose 148 H 12/10/18 21:04: POC Glucose 146 H 12/11/18 03:10: Vancomycin Trough 15.3 H 12/11/18 05:49: WBC 8.4, RBC 3.69 L, Hgb 11.3 L, Hct 33.1 L, MCV 89.7, MCH 30.6, MCHC 34.1, RDW 12.7, RDW Differential 40.9, Plt Count 254, MPV 8.9, Immature Gran % (Auto) 0.200, Neut % (Auto) 61.6, Lymph % (Auto) 28.8, [place] % (Auto) 7.5, Eos % (Auto) 1.5, Baso % (Auto) 0.4, Absolute Neuts (auto) 5.2, Absolute Lymphs (auto) 2.42, Total Counted Not Reportable 12/11/18 05:49: PT 14.0, INR 1.1, APTT 29.7 12/11/18 05:49: Sodium 139, Potassium 3.9, Chloride 105, Carbon Dioxide 27.0, Anion Gap 7, BUN 9, Creatinine 0.68 L, Estim Creat Clear Calc 72.16, Est GFR (MDRD) Af Amer 147, Est GFR (MDRD) Non-Af 121, BUN/Creatinine Ratio 13.2, Glucose 155 H, Calcium 8.9, Total Bilirubin 0.40, Direct Bilirubin 0.11, AST 15, ALT 22, Alkaline Phosphatase 74, Total Protein 6.7, Albumin 2.9 L, Globulin 3.8 12/11/18 06:42: POC Glucose 167 H 12/11/18 12:38: POC Glucose 158 H Current Medications Acetaminophen (Tylenol) 650 mg PO Q6H PRN PRN PRN Reason: Mild Pain (1-3)/Temp > 100.7 F Aspirin (Aspirin, Baby) 81 mg PO DAILY@0800 [facility] Last Admin: 12/11/18 11:02 Dose: Not Given Atorvastatin Calcium (Lipitor) 5 mg PO QHS [facility] Last Admin: 12/10/18 21:05 Dose: 5 mg Dextrose (D50w Syringe) 0 gm IV X1 PRN; Protocol PRN Reason: Hypoglycemia Enoxaparin Sodium (Lovenox) 40 mg SC DAILY@1000 [facility] Last Admin: 12/11/18 11:03 Dose: Not Given Folic Acid (Folic Acid) 1 mg PO DAILY@0800 [facility] Last Admin: 12/11/18 11:03 Dose: Not Given Glucagon () 1 mg IM .X1 PRN PRN Reason: Hypoglycemia Hydralazine HCl (Apresoline Iv) 5 mg IV Q4H PRN PRN PRN Reason: HYPERTENSION Last Admin: 12/09/18 22:09 Dose: 5 mg Vancomycin HCl 1,500 mg/ (Sodium Chloride) 530 mls @ 250 mls/hr IV Q12H [facility] Last Admin: 12/11/18 03:45 Dose: 250 mls/hr Vancomycin IV Pharmacy to Dose (1 ea/ Sodium Chloride) 500 mls @ 250 mls/hr IV PRN PRN; Protocol PRN Reason: Rx to Dose Insulin Human Lispro (Humalog Kwikpen (Bkc)) 0 unit SC ACHS [facility]; Protocol Last Admin: 12/11/18 13:09 Dose: Not Given Lisinopril (Zestril) 20 mg PO DAILY [facility] Last Admin: 12/11/18 09:14 Dose: 20 mg Lorazepam (Ativan) 1 mg PO Q8H PRN PRN PRN Reason: Alcohol Withdrawal Melatonin (Melatonin) 3 mg PO QHS [facility] Last Admin: 12/10/18 21:05 Dose: 3 mg Metformin [facility] (Glucophage) [facility] Last Admin: 12/11/18 11:03 Dose: Not Given Nutritional Formula (Lactose Free) (Glucerna Shake) 120 ml PO TIDCM [facility] Last Admin: 12/11/18 13:09 Dose: Not Given Ondansetron HCl (Zofran) 4 mg IV Q8H PRN PRN PRN Reason: NAUSEA/VOMITING Oxycodone HCl (Oxyir) 5 mg PO Q4H PRN PRN PRN Reason: Moderate Pain (4-6/10) Senna/Docusate Sodium (Senokot-S, Emily-Colace) 2 tablet PO BID PRN PRN PRN Reason: Constipation Sodium Chloride () 5 - 15 ml IV UD PRN PRN Reason: SALINE FLUSH Last Admin: 12/11/18 03:45 Dose: 10 ml Thiamine HCl (Vitamin B1) [facility] Last Admin: 12/11/18 11:03 Dose: Not Given Medical Necessity - Tobacco Use Smoking Status: Former smoker Tobacco Use: Cigars Assessment/Plan 1. Left Calcaneus osteomyelitis foot wounds * on Vancomycin * Discussed with Dr. Griffin, plan is for debridement and bone biospy on 12/11. Patient with multiple medical comorbidities, including PAD. Patient is to follow with Dr. Beck for the PAD. Medically, other than the PAD, patient is medically optimized to proceed for surgery. 2.PAD * TRISTIAN on 10/22 shows severely diminished digital-brachial index on left. * on ASA * follow up with Dr. Beck as outpt * complicates healing until adequately treated 3. DM2 * uncontrolled * on metforming and SSI * A1C 8.2 * start basal insulin 4. VTE prophylaxis: LMWH Code Visit Inpatient E&M: 39321 Subs Hosp L2
--- NOTE | 2018-12-11 14:00 | NURSING ---
report called to Ana Maria in [facility]. pt transported downstairs at this time via bed.
--- NOTE | 2018-12-11 14:58 | RAD_ITS ---
STUDY: X-RAY - LEFT ANKLE REASON FOR EXAM: Male, 73 years old. Heel debridement. TECHNIQUE: 2 fluoroscopic images were obtained. COMPARISON: December 09, 2018. FINDINGS: Intraoperative evaluation. Heel debridement without obvious complications. Plantar spur with plantar fascial calcifications. Soft tissue ulcer. RAD/Ankle 2 Views IMPRESSION: Heel debridement without obvious complication Please see surgeon's note Plantar spur with plantar fascial calcifications Soft tissue ulcer Electronically Signed: Nnamdi Rico DO at 8:47 EDT Tel , Service support ,
--- NOTE | 2018-12-11 15:00 | BON_PTH ---
PATIENT: AIDA PROCTOR LOC: [facility]3 U#:[id number] AGE/SX: 73/M ROOM: MS310 RE12/09/[address]: Dr. Shanell Hartley MD : [id number] BED: 1 DIS: 12/14/2018 SPEC #: [id number] RECD: 12/11/18 16:14 STATUS: HEATHER REQ #: [id number] MARI: 12/11/18 15:[address]: Jona Griffin DEPT: SURGICAL PATHOLOGY RECD BY: Kylie Boston ENTERED: 12/14/18 10:28 SP TYPE: Bone OTHR DR: MD Dr. Rebecca Blue DPM MD Dr. Alfa Howard MD Dr. Scott Hannan, MD Tissues: Bone of foot, NOS Procedures: Decalcification bone/plaque Surgery Specimen Level III HEADER OPERATION: Debridement hell ulcer, bone biopsy PRE-OP DIAGNOSIS: Non-healing Gonzales grade 3 left plantar heel diabetic ulcer, osteomyelitis TISSUE SUBMITTED: Left heel bone biopsy MICROSCOPIC DIAGNOSIS Left heel bone, ulcer, biopsy: Fragments of degenerative bone with marrow fibrosis, compatible with focal chronic osteomyelitis. CE:deirdre 12/17/18 MICROSCOPIC DESCRIPTION Slides are reviewed. GROSS DESCRIPTION Received in fixative is one container labeled with the patient's name and designated left heel bone biopsy. The specimen consists of two irregular fragments of turpin bone that in aggregate measure 0.8 x 0.5 x 0.2 cm. The specimen is totally submitted in one cassette after decalcification. / AM:deirdre 12/14/18 TC:5 CPT: 78717, 98189
[2018-12-11] MEDS: Bupivacaine Mpf 0.5% 30 ML VIAL (15:18)
--- NOTE | 2018-12-11 16:41 | OP.PCM_ITS ---
Problem List (1) Osteomyelitis of left foot Status: Acute (2) Cellulitis of left foot Status: Acute (3) Type 2 diabetes mellitus with diabetic polyneuropathy Status: Acute (4) Chronic ulcer of left foot with fat layer exposed Status: Chronic (5) PVD (peripheral vascular disease) Status: Acute Report of Operation Date of Procedure: 12/11/18 Pre-Operative Diagnosis: Ulcer of left heel with osteomyelitis and cellulitis Post-Operative Diagnosis: same Surgery/Procedure Performed:: Debridement of all infected, necrotic, non viable soft tissue of left foot with bone biopsy of calcaneus. Description of Surgical Findings:: Hemostasis maintained with anatomic dissection and local pressure. No tourniquet inflated. Type of Anesthesia:: Local MAC - with pre-operative ankle block consisting of 10 mL of 0.5% marcaine plain Specimen's removed: Bone biopsy taken from left calcaneus and half sent to micro for aerobic, anaerobic, acid fast, and fungal evaluation and half sent to pathology for further evaluation. Estimated Blood Loss (mL): 15 mL Description of Procedure: Indications: This 73-year-old diabetic male was admitted to the hospital Friday through the ER after being seen at the wound healing center by Dr. Cifuentes. He has a past medical history of hypertension, hyperlipidemia, type 2 diabetes mellitus, alcohol abuse, PVD, marijuana use, as well as other comorbidities. Patient has some visual impairment as well. Patient was initially seeing Dr. Cifuentes for a ruptured Achilles tendon that was being treated conservatively with a cam walker. Patient developed an ulcer to the plantar left heel after being noncompliant. Patient has been seeing Dr. iCfuentes for left heel ulcer at the wound healing center. He says this is slowly been getting worse over the last few weeks and got much worse over the course of the last week. This patient has been noncompliant in treatment thus far. Vital signs are currently stable. White blood count is 8.4 today. ESR was 18 and CRP was 51.6 on admission. Preliminary deep wound cultures taken yesterday showed mixed gnr lactose fish hatchery man, staph aureus, and gram-negative shyla. Blood culture results show no growth after 48 hours. Patient is currently on IV antibiotics. The surrounding cellulitis has shown improvement since admission. Slight malodor still appreciated today. Scant purulence noted by Dr. ericka Henriquez at the wound healing center prior to admission. None noted today. This patient is noted to have PVD and is going to be seeing Dr. Beck with vascular surgery next week and his appointment is already scheduled for this. 3 view left foot x-rays were taken that showed mild cortical erosion of the posterior tuberosity of the calcaneus that was worrisome for osteomyelitis. MRI was taken of the left foot that showed suspected osteomyelitis as well of the posterior tuberosity of the calcaneus, as well as the patient's partial tear of his Achilles tendon which the patient had already been treated for by Dr. Cifuentes. At this time I discussed with the patient and his brother and [id number] last evening, all the possible treatment options for this patient including both conservative and surgical treatment, as well as the risks, benefits, and possible complications and outcomes of each of these. It was at this time that I suggest we proceed with debridement of all nonviable, necrotic, and infected soft tissue of the left foot with bone biopsy of the left calcaneus. The case was discussed with the hospitalist who surgically cleared the patient and is in agreement with the plan. The plan procedure was then discussed in great detail and to the patient and his family's understanding. The patient and family agree to proceed with the operation at this time. All the risks and potential complications were reviewed with the patient. He understands the importance of proper compliance following this procedure to opti prabhjot the potential for healing, but no guarantees were given. He is advised that the complications and risks include, but are not limited to, further infection, need for further surgeries, recurrence, transfer lesions, deformity, weakness, loss of strength, loss of function, further ulceration, nonhealing, delayed healing, blood clots, chronic swelling, arthritis, Charcot foot/ankle, nerve damage, inability to walk, inability to bear wear shoes, severe pain, complex regional pain syndrome, need for below-knee amputation, loss of complete limb, or even potential loss of life. The alternative options were discussed with the patient as well as family members. All their questions were answered to their satisfaction. It was then agreed to proceed forward with debridement of the ulcer as well as bone biopsy of calcaneus of the left foot. The consent form was reviewed with the patient and was freely signed. Again, no guarantees were given. Description of procedure: The patient was brought to the operating room placed on the table in the supine position. The patient was already on IV antibiotics per hospitalist. The patient received MAC local anesthesia per the anesthesiologist. A local anesthetic block was then performed in an ankle block fashion consisting of 10 mL of 0.5% Marcaine plain. A well-padded ankle tourniquet was then applied to the patient's left ankle. This was never inflated during the procedure however. The left foot and ankle were then scrubbed, prepped, and draped in the usual aseptic manner. A timeout was performed and the patient was properly identified and surgical plan was confirmed. Next, attention was directed to the medial aspect of the left foot, overlying the medial calcaneus. A stab made using a #15 scalpel blade, and careful dissection was carried deeper down to the medial aspect of the calcaneus. This incision was made away from the ulcer site. Next, a Denis biopsy needle was used to take a bone biopsy from the calcaneus. Placement was confirmed using fluoroscopy. Half of the bone biopsy was then sent to microbiology for aerobic, anaerobic, acid-fast, and fungal evaluation. The other half was sent to pathology for further evaluation. Then, attention was directed to the plantar and medial calcaneus where two clustered ulcers measured pre-debridement approximately 7.0 x 2.0 x 0.5 cm. Ulcer probes deep to the periosteum. Majority of ulcer is covered by fibrotic plug with some fibrinous drainage. Malodor appreciated. No purulence noted. At this time, a [employer] versa jet was used on setting 6 for debridement of all necrotic, nonviable, and infected soft tissue of the ulcer site. Ulcer debrided down to the periosteum at the deepest level on the plantar aspect of the ulcer. Once the versa jet debridement was complete, the remaining tissue looked healthy and viable in appearance. Bleeding was noted, however there was less bleeding than would be expected for this area or procedure, due to the patient's PVD. Once the debridement was complete, the surgical site was flushed with copious amounts of normal sterile saline. Post debridement the ulcer measured approximately 7.4 x 2.5 x 0.6 cm. The surgical site was then packed with quarter inch iodoform packing, followed by 4 x 4's, ABDs, and Kerlix. After procedure: The patient tolerated the procedure and anesthesia well. He was transferred to PACU with vital signs stable. He will be transferred back to the medical surgical floor upon continued stability. He is advised to continue with strict nonweightbearing to the left lower extremity and to keep the dressing clean dry and intact. He is to keep the left foot completely offloaded with pillows under his ankles. Patient is to continue IV antibiotics and DVT prophylaxis under the management of the hospitalist. Podiatry will continue to follow this patient while in house.
[2018-12-11] MEDS: metFORMIN HCl 1,000 MG Tablet 1000 MG PO (17:11)
[2018-12-11] MEDS: Glucerna Shake 120 ML LIQUID PO (17:11)
[2018-12-11 17:16] LABS: Bedside Glucose 134 mg/dL (70-110)
[2018-12-11] MEDS: Acetaminophen 325 MG Tablet 650 MG PO (20:44)
[2018-12-11] MEDS: Insulin Lispro 100 UNIT/ML INSULN.PEN SC (20:45)
[2018-12-11] MEDS: Atorvastatin Calcium 10 MG Tablet 5 MG PO (20:45)
[2018-12-11 20:55] LABS: Bedside Glucose 181 mg/dL (70-110)
[2018-12-11] MEDS: MELATONIN 3 MG TABLET PO (22:26)
[2018-12-12] MEDS: 0.9% NaCl Peripheral Flush Adult/Peds IV ×2 (03:07→21:13)
[2018-12-12 03:13] VITALS: BP 133/77; PULSE 87; RESP 16; TEMP 37.6; O2SAT 96
[2018-12-12] MEDS: Insulin Lispro 100 UNIT/ML INSULN.PEN SC ×3 (06:30→21:14)
[2018-12-12 06:36] LABS: Bedside Glucose 171 mg/dL (70-110)
[2018-12-12 07:23] LABS: Absolute Lymphocyte Count 2.01 X10^3/ul (0.83-4.51); Absolute Neutrophil Count 6.6 X10^3/uL (2.0-7.7); Basophil# 0.02 X10^3/uL; Basophil% 0.2 % (0-1); Eosinophil# 0.15 X10^3/uL; Eosinophils% 1.5 % (0-5); Hematocrit 33.2 % (40-54); Hemoglobin 11.3 g/dl (13.0-16.5); Lymphocyte # 2.01 X10^3/ul (4.0); Lymphocyte % 20.3 % (19-41); Mean Corpuscular Hgb 30.7 pg (27.0-32.0); Mean Corpuscular Volume 90.2 fL (80-94); Mean Platelet Vol. 9.2 fl (6.2-12.0); Monocyte# 1.09 X10^3/uL; Neutrophil # 6.59 X10^3/uL (2.7-7.7); Neutrophil % 66.7 % (47-70); Platelet Count 285 K/mm3 (150-450); RBC Distribution Width CV 12.5 % (11.6-14.6); RBC Distribution Width SD 39.8 fl (35.1-43.9); Red Blood Count 3.68 M/mm3 (4.6-6.2); White Blood Count 9.9 K/mm3 (4.4-11.0)
[2018-12-12 07:28] LABS: POSITIVE COUNT NO; POSITIVE DIFFERENTIAL NO; POSITIVE MORPHOLOGY NO
[2018-12-12 07:46] LABS: Anion Gap 6 (5-15); BUN 9 mg/dL (7-18); BUN/Creat Ratio 12.3 RATIO (10-20); Calcium,Total 8.6 mg/dL (8.5-10.1); Chloride 104 mmol/L (98-107); Creatinine, Serum 0.73 mg/dL (0.70-1.30); EST Glomerular Filtration Rate 112 mL/min (>60); Est Glom Filt Rate - Afr Amer 136 mL/min (>60); Estimated Creatinine Clearance 72.16 ml/min; Glucose 173 mg/dL (74-106); Potassium 4.3 mmol/L (3.5-5.1); Sodium Level 139 mmol/L (136-145)
[2018-12-12 08:09] VITALS: O2SAT 90
[2018-12-12] MEDS: Lisinopril 20 MG Tablet PO (09:36)
[2018-12-12] MEDS: Thiamine Hydrochloride 100 MG Tablet PO (09:36)
[2018-12-12] MEDS: Glucerna Shake 120 ML LIQUID PO ×3 (09:36→17:22)
[2018-12-12] MEDS: Enoxaparin 40 MG/0.4 ML Syringe SC (09:37)
[2018-12-12] MEDS: metFORMIN HCl 1,000 MG Tablet 1000 MG PO ×2 (09:37→17:23)
[2018-12-12] MEDS: Folic Acid 1 MG Tablet PO (09:37)
[2018-12-12] MEDS: Aspirin 81 MG TAB.CHEW PO (09:37)
[2018-12-12 09:41] VITALS: BP 134/85; PULSE 91; RESP 18; TEMP 36.8; O2SAT 95
--- NOTE | 2018-12-12 10:08 | PCM.PROGNOTE ---
Patient Problems: Active and Suspected Problems Osteomyelitis (Suspected) Osteomyelitis of left foot (Acute) Cellulitis of left foot (Acute) Type 2 diabetes mellitus with diabetic polyneuropathy (Acute) PVD (peripheral vascular disease) (Acute) Subjective: This 73 year old diabetic male patient was seen resting bedside this morning POD #1 s/p debridement of all necrotic, nonviable, infected soft tissue with bone biopsy of the left calcaneus. Patient had no adverse events overnight. Patient currently feels well with no complaints. Pain is controlled. Patient currently denies any feelings of nausea, vomiting, fever, chills. - Physical Exam General: Alert, Oriented x3, Cooperative, No apparent distress Extremities: No cyanosis, Capillary Refill Less than 3 Seconds, No Calf Tenderness - Negative Abhishek and Irwin signs left lower extremity, Diminished Peripheral Pulses, Edema - Minor left lower extremity edema Skin: Ulcer/ Wound - Ulcer/surgical site to plantar and medial heel noted with exposed bone to the plantar aspect of ulcer site. Remaining ulcer base is mixture of granular tissue and small areas of scant slough and fibrin. The surrounding cellulitis has improved since yesterday prior to surgery. No surrounding increase in warmth. There is no purulence and no significant malodor noted at this time. The peripheral skin is hairless and atrophic. Musculoskeletal: No Tenderness to Palpation of Joints or Extremities, - - Active range of motion toes x5 left foot Neurological: - - Loss of epicritic sensation left lower extremity Psych/Mental Status: Normal Affect, Appropriate Vital Signs Temp Pulse Resp BP Pulse Ox 98.2 F 91 18 134/85 H 95 12/12/18 09:41 12/12/18 09:41 12/12/18 09:41 12/12/18 09:41 12/12/18 09:41 Oxygen Delivery Method Room Air Weight: 92.079 kg Body Mass Index (BMI) 28.3 Intake and Output for Last 24 Hours 12/10/18 12/11/18 12/12/18 23:59 23:59 23:59 Intake Total 4581 / 4581 3214 / 3214 659 / 659 Output Total 1880 / 1880 2150 / 2150 800 / 800 Balance 2701 / 2701 1064 / 1064 -141 / -141 Microbiology Past 72 Hours 12/09/18 14:50 Blood Culture - Preliminary Blood Culture (Wb) - Right Wrist No growth in 48 hours. 05/15/19 14:40 Blood Culture - Preliminary Blood Culture (Wb) - Anticubital Right No growth in 48 hours. Laboratory Tests Past 24 Hrs 12/12/18 12/12/18 06:35 06:35 WBC 9.9 RBC 3.68 L Hgb 11.3 L Hct 33.2 L MCV 90.2 MCH 30.7 MCHC 34.0 RDW 12.5 RDW Differential 39.8 Plt Count 285 MPV 9.2 Immature Gran % (Auto) 0.300 Neut % (Auto) 66.7 Lymph % (Auto) 20.3 [place] % (Auto) 11.0 H Eos % (Auto) 1.5 Baso % (Auto) 0.2 Absolute Neuts (auto) 6.6 Absolute Lymphs (auto) 2.01 Total Counted Not Reportable Sodium 139 Potassium 4.3 Chloride 104 Carbon Dioxide 29.0 Anion Gap 6 BUN 9 Creatinine 0.73 Estim Creat Clear Calc 72.16 Est GFR (MDRD) Af Amer 136 Est GFR (MDRD) Non-Af 112 BUN/Creatinine Ratio 12.3 Glucose 173 H Calcium 8.6 POC Glucose 12/12/18 12/11/18 12/11/18 06:28 20:43 17:06 POC Glucose 171 H 181 H 134 H 12/11/18 12:38 POC Glucose 158 H Medical Necessity - Tobacco Use Smoking Status: Former smoker Tobacco Use: Cigars Assessment/Plan All Active Problems Osteomyelitis of left foot (Acute) Cellulitis of left foot (Acute) Type 2 diabetes mellitus with diabetic polyneuropathy (Acute) PVD (peripheral vascular disease) (Acute) Diabetic ulcer left foot- POD #1 s/p debridement of all necrotic, nonviable, infected soft tissue with bone biopsy of the left calcaneus OM left calcaneus cellulitis DM with neuropathy Other comorbidities This patient was carefully examined and evaluated resting bedside today. Patient is postop day #1 status post debridement of all necrotic, nonviable, infected soft tissue with bone biopsy of the left calcaneus. Patient had no adverse events overnight and his pain is currently controlled. Patient currently feeling well with no complaints. Patient is afebrile and vital signs are stable. No leukocytosis noted. Deep wound cultures taken on Friday show growth of Morganella morganii sp morgani, E. coli, staph aureus, and presumptive B fragilis group. Bone biopsy cultures still pending. Blood cultures show no growth after 48 hours. Patient remains on IV antibiotics. Patient to see infectious disease on Friday. No strikethrough was noted to the dressing. The dressing was taken down today and surgical site/ulcer site was carefully examined and evaluated. No purulence or significant malodor noted today and surrounding cellulitis has improved greatly since surgery. The site was then carefully flushed with copious amounts of normal sterile saline. Once complete, the site was then dressed with Betadine soaked 2 x 2's followed by dry 4 x 4's, ABD, and Kerlix. This dressing can be reinforced by nursing if needed. As noted before, this patient does have PVD and will be following up with an already scheduled appointment with Dr. Beck with vascular surgery on Friday. The patient is to keep the dressing clean dry and intact. The patient is to be nonweightbearing to the left foot with assistance of walker. Patient to keep left foot/heel completely offloaded at all times while seated or laying down. Continued medical management and DVT prophylaxis is appreciated by primary team. Podiatry will continue to follow this patient while in house.
--- NOTE | 2018-12-12 11:08 | PCM.PN.HOSP ---
Patient Problems: Active and Suspected Problems Osteomyelitis (Suspected) Osteomyelitis of left foot (Acute) Cellulitis of left foot (Acute) Type 2 diabetes mellitus with diabetic polyneuropathy (Acute) PVD (peripheral vascular disease) (Acute) Subjective: No new complaints, post-op. Vitals/I&O's: Vital Signs Temp Pulse Resp BP Pulse Ox 36.8 C 91 18 134/85 H 95 12/12/18 09:41 12/12/18 09:41 12/12/18 09:41 12/12/18 09:41 12/12/18 09:41 Oxygen Delivery Method Room Air Weight: 92.079 kg Body Mass Index (BMI) 28.3 Intake and Output for Last 24 Hours 12/10/18 12/11/18 12/12/18 23:59 23:59 23:59 Intake Total 4581 / 4581 3214 / 3214 659 / 659 Output Total 1880 / 1880 2150 / 2150 800 / 800 Balance 2701 / 2701 1064 / 1064 -141 / -141 General: Alert, No apparent distress HEENT: Atraumatic, Normocephalic Oral: Moist Mucosa, No Gingival or Mucosal Lesions/ Ulcerations Neck: No Nodes, Thyroid Normal Size and Texture Lungs: Clear to auscultation, Normal air movement, No rhonchi, No wheeze Cardiovascular: Regular rate, Regular Rhythm, Normal S1, Normal S2, No murmurs Abdomen: Bowel Sounds Present, Soft, Non Tender, Non-Distended, No Hepato-splenomegaly Extremities: - - left foot and ankle bandaged--did not remove. Psych/Mental Status: Normal Affect, Appropriate Microbiology Past 72 Hours 12/11/18 16:27 Biopsy - Bone Wound Culture - Preliminary No growth-Final to follow 12/09/18 14:50 Blood Culture (Wb) - Right Wrist Blood Culture - Preliminary No growth in 48 hours. 12/09/18 14:40 Blood Culture (Wb) - Anticubital Right Blood Culture - Preliminary No growth in 48 hours. Laboratory Results 12/11/18 12:38: POC Glucose 158 H 12/11/18 17:06: POC Glucose 134 H 12/11/18 20:43: POC Glucose 181 H 12/12/18 06:28: POC Glucose 171 H 12/12/18 06:35: WBC 9.9, RBC 3.68 L, Hgb 11.3 L, Hct 33.2 L, MCV 90.2, MCH 30.7, MCHC 34.0, RDW 12.5, RDW Differential 39.8, Plt Count 285, MPV 9.2, Immature Gran % (Auto) 0.300, Neut % (Auto) 66.7, Lymph % (Auto) 20.3, [place] % (Auto) 11.0 H, Eos % (Auto) 1.5, Baso % (Auto) 0.2, Absolute Neuts (auto) 6.6, Absolute Lymphs (auto) 2.01, Total Counted Not Reportable 12/12/18 06:35: Sodium 139, Potassium 4.3, Chloride 104, Carbon Dioxide 29.0, Anion Gap 6, BUN 9, Creatinine 0.73, Estim Creat Clear Calc 72.16, Est GFR (MDRD) Af Amer 136, Est GFR (MDRD) Non-Af 112, BUN/Creatinine Ratio 12.3, Glucose 173 H, Calcium 8.6 Current Medications Acetaminophen (Tylenol) 650 mg PO Q6H PRN PRN PRN Reason: Mild Pain (1-3)/Temp > 100.7 F Last Admin: 12/11/18 20:44 Dose: 650 mg Aspirin (Aspirin, Baby) 81 mg PO DAILY@0800 [facility] Last Admin: 12/12/18 09:37 Dose: 81 mg Atorvastatin Calcium (Lipitor) 5 mg PO QHS [facility] Last Admin: 12/11/18 20:45 Dose: 5 mg Dextrose (D50w Syringe) 0 gm IV X1 PRN; Protocol PRN Reason: Hypoglycemia Enoxaparin Sodium (Lovenox) 40 mg SC DAILY@1000 [facility] Last Admin: 12/12/18 09:37 Dose: 40 mg Folic Acid (Folic Acid) 1 mg PO DAILY@0800 [facility] Last Admin: 12/12/18 09:37 Dose: 1 mg Glucagon () 1 mg IM .X1 PRN PRN Reason: Hypoglycemia Hydralazine HCl (Apresoline Iv) 5 mg IV Q4H PRN PRN PRN Reason: HYPERTENSION Last Admin: 12/09/18 22:09 Dose: 5 mg Vancomycin HCl 1,500 mg/ (Sodium Chloride) 530 mls @ 250 mls/hr IV Q12H [facility] Last Admin: 12/12/18 03:07 Dose: 250 mls/hr Vancomycin IV Pharmacy to Dose (1 ea/ Sodium Chloride) 500 mls @ 250 mls/hr IV PRN PRN; Protocol PRN Reason: Rx to Dose Insulin Human Lispro (Humalog Kwikpen (Bkc)) 0 unit SC [facility]; Protocol Last Admin: 12/12/18 06:30 Dose: 1 u Lisinopril (Zestril) 20 mg PO DAILY [facility] Last Admin: 12/12/18 09:36 Dose: 20 mg Lorazepam (Ativan) 1 mg PO Q8H PRN PRN PRN Reason: Alcohol Withdrawal Melatonin (Melatonin) 3 mg PO QHS [facility] Last Admin: 12/11/18 22:26 Dose: 3 mg [facility] ([facility]uc[facility]) [facility] Last Admin: 12/12/18 09:37 Dose: 1,000 mg Nutritional Formula (Lactose Free) (Glucerna Shake) 120 ml PO TIDCM [facility] Last Admin: 12/12/18 09:36 Dose: 120 ml Ondansetron HCl (Zofran) 4 mg IV Q8H PRN PRN PRN Reason: NAUSEA/VOMITING Oxycodone HCl (Oxyir) 5 mg PO Q4H PRN PRN PRN Reason: Moderate Pain (4-6/10) Senna/Docusate Sodium (Senokot-S, Emily-Colace) 2 tablet PO BID PRN PRN PRN Reason: Constipation Sodium Chloride () 5 - 15 ml IV UD PRN PRN Reason: SALINE FLUSH Last Admin: 12/12/18 03:07 Dose: 10 ml Thiamine HCl (Vitamin B1) [facility] Last Admin: 12/12/18 09:36 Dose: 100 mg Medical Necessity - Tobacco Use Smoking Status: Former smoker Tobacco Use: Cigars Assessment/Plan All Active Problems Osteomyelitis of left foot (Acute) Cellulitis of left foot (Acute) Type 2 diabetes mellitus with diabetic polyneuropathy (Acute) PVD (peripheral vascular disease) (Acute) 1. Left Calcaneus osteomyelitis foot wounds S/P debridement on 12/11 with bone cultures Wound culture on the showed: M. morganii, E. coli, MSSA, and possible B. fragilis Change Abx to Cefazolin, Cipro and metronidazole ID consult follow up wound cultures. 2.PAD TRISTIAN on 10/22 shows severely diminished digital-brachial index on left. on ASA follow up with Dr. Beck as outpt complicates healing until adequately treated 3. DM2 uncontrolled on metforming and SSI A1C 8.2 4. VTE prophylaxis: LMWH Code Visit Inpatient E&M: 23911 Subs Hosp L2
--- NOTE | 2018-12-12 11:17 | PN_ITS ---
Patient Problems: Active and Suspected Problems Osteomyelitis (Suspected) Osteomyelitis of left foot (Acute) Cellulitis of left foot (Acute) Type 2 diabetes mellitus with diabetic polyneuropathy (Acute) PVD (peripheral vascular disease) (Acute) Subjective: No new complaints, post-op. Vitals/I&O's: Vital Signs Temp Pulse Resp BP Pulse Ox 36.8 C 91 18 134/85 H 95 12/12/18 09:41 12/12/18 09:41 12/12/18 09:41 12/12/18 09:41 12/12/18 09:41 Oxygen Delivery Method Room Air Weight: 92.079 kg Body Mass Index (BMI) 28.3 Intake and Output for Last 24 Hours 12/10/18 12/11/18 12/12/18 23:59 23:59 23:59 Intake Total 4581 / 4581 3214 / 3214 659 / 659 Output Total 1880 / 1880 2150 / 2150 800 / 800 Balance 2701 / 2701 1064 / 1064 -141 / -141 General: Alert, No apparent distress HEENT: Atraumatic, Normocephalic Oral: Moist Mucosa, No Gingival or Mucosal Lesions/ Ulcerations Neck: No Nodes, Thyroid Normal Size and Texture Lungs: Clear to auscultation, Normal air movement, No rhonchi, No wheeze Cardiovascular: Regular rate, Regular Rhythm, Normal S1, Normal S2, No murmurs Abdomen: Bowel Sounds Present, Soft, Non Tender, Non-Distended, No Hepato- splenomegaly Extremities: - - left foot and ankle bandaged--did not remove. Psych/Mental Status: Normal Affect, Appropriate Microbiology Past 72 Hours 12/11/18 16:27 Biopsy - Bone Wound Culture - Preliminary No growth-Final to follow 12/09/18 14:50 Blood Culture (Wb) - Right Wrist Blood Culture - Preliminary No growth in 48 hours. 12/09/18 14:40 Blood Culture (Wb) - Anticubital Right Blood Culture - Preliminary No growth in 48 hours. Laboratory Results 12/11/18 12:38: POC Glucose 158 H 12/11/18 17:06: POC Glucose 134 H 12/11/18 20:43: POC Glucose 181 H 12/12/18 06:28: POC Glucose 171 H 12/12/18 06:35: WBC 9.9, RBC 3.68 L, Hgb 11.3 L, Hct 33.2 L, MCV 90.2, MCH 30.7, MCHC 34.0, RDW 12.5, RDW Differential 39.8, Plt Count 285, MPV 9.2, Immature Gran % (Auto) 0.300, Neut % (Auto) 66.7, Lymph % (Auto) 20.3, [place] % (Auto) 11.0 H, Eos % (Auto) 1.5, Baso % (Auto) 0.2, Absolute Neuts (auto) 6.6, Absolute Lymphs (auto) 2.01, Total Counted Not Reportable 12/12/18 06:35: Sodium 139, Potassium 4.3, Chloride 104, Carbon Dioxide 29.0, Anion Gap 6, BUN 9, Creatinine 0.73, Estim Creat Clear Calc 72.16, Est GFR (MDRD) Af Amer 136, Est GFR (MDRD) Non-Af 112, BUN/Creatinine Ratio 12.3, Glucose 173 H, Calcium 8.6 Current Medications Acetaminophen (Tylenol) 650 mg PO Q6H PRN PRN PRN Reason: Mild Pain (1-3)/Temp > 100.7 F Last Admin: 12/11/18 20:44 Dose: 650 mg Aspirin (Aspirin, Baby) 81 mg PO DAILY@0800 [facility] Last Admin: 12/12/18 09:37 Dose: 81 mg Atorvastatin Calcium (Lipitor) 5 mg PO QHS [facility] Last Admin: 12/11/18 20:45 Dose: 5 mg Dextrose (D50w Syringe) 0 gm IV X1 PRN; Protocol PRN Reason: Hypoglycemia Enoxaparin Sodium (Lovenox) 40 mg SC DAILY@1000 [facility] Last Admin: 12/12/18 09:37 Dose: 40 mg Folic Acid (Folic Acid) 1 mg PO DAILY@0800 [facility] Last Admin: 12/12/18 09:37 Dose: 1 mg Glucagon () 1 mg IM .X1 PRN PRN Reason: Hypoglycemia Hydralazine HCl (Apresoline Iv) 5 mg IV Q4H PRN PRN PRN Reason: HYPERTENSION Last Admin: 12/09/18 22:09 Dose: 5 mg Vancomycin HCl 1,500 mg/ (Sodium Chloride) 530 mls @ 250 mls/hr IV Q12H [facility] Last Admin: 12/12/18 03:07 Dose: 250 mls/hr Vancomycin IV Pharmacy to Dose (1 ea/ Sodium Chloride) 500 mls @ 250 mls/hr IV PRN PRN; Protocol PRN Reason: Rx to Dose Insulin Human Lispro (Humalog Kwikpen (Bkc)) 0 unit SC [facility]; Protocol Last Admin: 12/12/18 06:30 Dose: 1 u Lisinopril (Zestril) 20 mg PO DAILY [facility] Last Admin: 12/12/18 09:36 Dose: 20 mg Lorazepam (Ativan) 1 mg PO Q8H PRN PRN PRN Reason: Alcohol Withdrawal Melatonin (Melatonin) 3 mg PO QHS [facility] Last Admin: 12/11/18 22:26 Dose: 3 mg [facility] ([facility]) [facility] Last Admin: 12/12/18 09:37 Dose: 1,000 mg Nutritional Formula (Lactose Free) (Glucerna Shake) 120 ml PO TIDCM [facility] Last Admin: 12/12/18 09:36 Dose: 120 ml Ondansetron HCl (Zofran) 4 mg IV Q8H PRN PRN PRN Reason: NAUSEA/VOMITING Oxycodone HCl (Oxyir) 5 mg PO Q4H PRN PRN PRN Reason: Moderate Pain (4-6/10) Senna/Docusate Sodium (Senokot-S, Emily-Colace) 2 tablet PO BID PRN PRN PRN Reason: Constipation Sodium Chloride () 5 - 15 ml IV UD PRN PRN Reason: SALINE FLUSH Last Admin: 12/12/18 03:07 Dose: 10 ml Thiamine HCl (Vitamin B1) [facility] Last Admin: 12/12/18 09:36 Dose: 100 mg Medical Necessity - Tobacco Use Smoking Status: Former smoker Tobacco Use: Cigars Assessment/Plan All Active Problems Osteomyelitis of left foot (Acute) Cellulitis of left foot (Acute) Type 2 diabetes mellitus with diabetic polyneuropathy (Acute) PVD (peripheral vascular disease) (Acute) 1. Left Calcaneus osteomyelitis foot wounds * S/P debridement on 12/11 with bone cultures * Wound culture on the showed: M. morganii, E. coli, MSSA, and possible B. fragilis * Change Abx to Cefazolin, Cipro and metronidazole * ID consult * follow up wound cultures. 2.PAD * TRISTIAN on 10/22 shows severely diminished digital-brachial index on left. * on ASA * follow up with Dr. Beck as outpt * complicates healing until adequately treated 3. DM2 * uncontrolled * on metforming and SSI * A1C 8.2 4. VTE prophylaxis: LMWH Code Visit Inpatient E&M: 64935 Subs Hosp L2
[2018-12-12 11:30] LABS: Bedside Glucose 292 mg/dL (70-110)
[2018-12-12] MEDS: Ciprofloxacin 400 MG/200 ML BAG 200 MG IV ×2 (13:27→22:23)
[2018-12-12 14:46] VITALS: BP 152/82; PULSE 77; RESP 18; TEMP 37.4; O2SAT 95
[2018-12-12] MEDS: Cefazolin 1 GM/50 ML BAG IV ×2 (14:48→21:13)
[2018-12-12] MEDS: metroNIDAZOLE 500 MG Tablet PO ×2 (14:49→21:13)
[2018-12-12 17:25] LABS: Bedside Glucose 131 mg/dL (70-110)
[2018-12-12] MEDS: Atorvastatin Calcium 10 MG Tablet 5 MG PO (21:13)
[2018-12-12 21:15] VITALS: BP 121/65; PULSE 86; RESP 16; TEMP 36.9; O2SAT 97
[2018-12-12] MEDS: MELATONIN 3 MG TABLET PO (22:23)
[2018-12-13 00:11] LABS: Bedside Glucose 192 mg/dL (70-110)
[2018-12-13 02:22] VITALS: BP 158/91; PULSE 66; RESP 18; TEMP 36.5; O2SAT 98
[2018-12-13] MEDS: Cefazolin 1 GM/50 ML BAG IV ×3 (06:13→21:54)
[2018-12-13] MEDS: metroNIDAZOLE 500 MG Tablet PO ×3 (06:13→21:54)
[2018-12-13] MEDS: 0.9% NaCl Peripheral Flush Adult/Peds IV ×2 (06:13→21:54)
[2018-12-13] MEDS: Insulin Lispro 100 UNIT/ML INSULN.PEN SC ×4 (06:45→21:53)
[2018-12-13 06:55] LABS: Bedside Glucose 175 mg/dL (70-110)
[2018-12-13 07:32] LABS: Anion Gap 7 (5-15); BUN 9 mg/dL (7-18); BUN/Creat Ratio 11.1 RATIO (10-20); Calcium,Total 9.1 mg/dL (8.5-10.1); Chloride 103 mmol/L (98-107); Creatinine, Serum 0.81 mg/dL (0.70-1.30); EST Glomerular Filtration Rate 100 mL/min (>60); Est Glom Filt Rate - Afr Amer 121 mL/min (>60); Estimated Creatinine Clearance 89.09 ml/min; Glucose 155 mg/dL (74-106); Potassium 4.1 mmol/L (3.5-5.1); Sodium Level 141 mmol/L (136-145)
[2018-12-13] MEDS: Glucerna Shake 120 ML LIQUID PO ×3 (08:35→16:46)
[2018-12-13] MEDS: metFORMIN HCl 1,000 MG Tablet 1000 MG PO ×2 (08:36→16:47)
[2018-12-13] MEDS: Ciprofloxacin 400 MG/200 ML BAG 200 MG IV ×2 (08:36→22:32)
[2018-12-13] MEDS: Thiamine Hydrochloride 100 MG Tablet PO (08:36)
[2018-12-13] MEDS: Folic Acid 1 MG Tablet PO (08:36)
[2018-12-13] MEDS: Lisinopril 20 MG Tablet PO (08:37)
[2018-12-13] MEDS: Aspirin 81 MG TAB.CHEW PO (08:37)
[2018-12-13] MEDS: Enoxaparin 40 MG/0.4 ML Syringe SC (08:37)
[2018-12-13 08:44] VITALS: BP 151/69; PULSE 89; RESP 18; TEMP 37.1; O2SAT 94
--- NOTE | 2018-12-13 09:31 | PCM.PN.HOSP ---
Patient Problems: Active and Suspected Problems Osteomyelitis of left foot (Acute) Cellulitis of left foot (Acute) Type 2 diabetes mellitus with diabetic polyneuropathy (Acute) PVD (peripheral vascular disease) (Acute) Subjective: Feels well. No complaints. Vitals/I&O's: Vital Signs Temp Pulse Resp BP Pulse Ox 37.1 C 89 18 151/69 H 94 12/13/18 08:44 12/13/18 08:44 12/13/18 08:44 12/13/18 08:44 12/13/18 08:44 Oxygen Delivery Method Room Air Weight: 92.079 kg Body Mass Index (BMI) 28.3 Intake and Output for Last 24 Hours 12/11/18 12/12/18 12/13/18 23:59 23:59 23:59 Intake Total 3214 / 3214 1958 / 1958 120 / 120 Output Total 2150 / 2150 2400 / 2400 1200 / 1200 Balance 1064 / 1064 -441 / -441 -1080 / -1080 General: Alert, No apparent distress HEENT: Atraumatic, Normocephalic Oral: Moist Mucosa, No Gingival or Mucosal Lesions/ Ulcerations Neck: No Nodes, Thyroid Normal Size and Texture Lungs: Clear to auscultation, Normal air movement, No rhonchi, No wheeze Cardiovascular: Regular rate, Regular Rhythm, Normal S1, Normal S2, No murmurs Abdomen: Bowel Sounds Present, Soft, Non Tender, Non-Distended, No Hepato-splenomegaly Extremities: No edema, No Calf Tenderness, - - left foot bandaged--did not remove. Psych/Mental Status: Normal Affect, Appropriate Microbiology Past 72 Hours 12/11/18 16:27 Biopsy - Bone Gram Stain - Final 12/11/18 16:27 Biopsy - Bone Wound Culture - Preliminary No growth-Final to follow 12/09/18 14:50 Blood Culture (Wb) - Right Wrist Blood Culture - Preliminary No growth in 48 hours. 12/09/18 14:40 Blood Culture (Wb) - Anticubital Right Blood Culture - Preliminary No growth in 48 hours. Laboratory Results 12/12/18 11:27: POC Glucose 292 H 12/12/18 17:16: POC Glucose 131 H 12/12/18 21:12: POC Glucose 192 H 12/13/18 05:30: Sodium 141, Potassium 4.1, Chloride 103, Carbon Dioxide 31.0, Anion Gap 7, BUN 9, Creatinine 0.81, Estim Creat Clear Calc 89.09, Est GFR (MDRD) Af Amer 121, Est GFR (MDRD) Non-Af 100, BUN/Creatinine Ratio 11.1, Glucose 155 H, Calcium 9.1 12/13/18 06:43: POC Glucose 175 H Current Medications Acetaminophen (Tylenol) 650 mg PO Q6H PRN PRN PRN Reason: Mild Pain (1-3)/Temp > 100.7 F Last Admin: 12/11/18 20:44 Dose: 650 mg Aspirin (Aspirin, Baby) 81 mg PO DAILY@0800 [facility] Last Admin: 12/13/18 08:37 Dose: 81 mg Atorvastatin Calcium (Lipitor) 5 mg PO QHS [facility] Last Admin: 12/12/18 21:13 Dose: 5 mg Dextrose (D50w Syringe) 0 gm IV X1 PRN; Protocol PRN Reason: Hypoglycemia Enoxaparin Sodium (Lovenox) 40 mg SC DAILY@1000 [facility] Last Admin: 12/13/18 08:37 Dose: 40 mg Folic Acid (Folic Acid) 1 mg PO DAILY@0800 [facility] Last Admin: 12/13/18 08:36 Dose: 1 mg Glucagon () 1 mg IM .X1 PRN PRN Reason: Hypoglycemia Hydralazine HCl (Apresoline Iv) 5 mg IV Q4H PRN PRN PRN Reason: HYPERTENSION Last Admin: 12/09/18 22:09 Dose: 5 mg Cefazolin Sodium () 1 gm in 50 mls @ 100 mls/hr IV Q8 [facility] Last Admin: 12/13/18 06:13 Dose: 100 mls/hr Ciprofloxacin (Cipro) 400 mg in 200 mls @ 200 mls/hr IV Q12 [facility] Last Admin: 12/13/18 08:36 Dose: 200 mls/hr Insulin Human Lispro (Humalog Kwikpen (Bkc)) 0 unit SC ACHS [facility]; Protocol Last Admin: 12/13/18 06:45 Dose: 1 u Lisinopril (Zestril) 20 mg PO DAILY [facility] Last Admin: 12/13/18 08:37 Dose: 20 mg Lorazepam (Ativan) 1 mg PO Q8H PRN PRN PRN Reason: Alcohol Withdrawal Melatonin (Melatonin) 3 mg PO QHS [facility] Last Admin: 12/12/18 22:23 Dose: 3 mg Metformin [facility] (Gluc[facility]) [facility] Last Admin: 12/13/18 08:36 Dose: 1,000 mg Metronidazole (Flagyl) 500 mg PO TID [facility] Last Admin: 12/13/18 06:13 Dose: 500 mg Nutritional Formula (Lactose Free) (Glucerna Shake) 120 ml PO TIDCM [facility] Last Admin: 12/13/18 08:35 Dose: 120 ml Ondansetron HCl (Zofran) 4 mg IV Q8H PRN PRN PRN Reason: NAUSEA/VOMITING Oxycodone HCl (Oxyir) 5 mg PO Q4H PRN PRN PRN Reason: Moderate Pain (4-6/10) Senna/Docusate Sodium (Senokot-S, Emily-Colace) 2 tablet PO BID PRN PRN PRN Reason: Constipation Sodium Chloride () 5 - 15 ml IV UD PRN PRN Reason: SALINE FLUSH Last Admin: 12/13/18 06:13 Dose: 10 ml Thiamine HCl (Vitamin B1) [facility] Last Admin: 12/13/18 08:36 Dose: 100 mg Medical Necessity - Tobacco Use Smoking Status: Former smoker Tobacco Use: Cigars Assessment/Plan All Active Problems Osteomyelitis of left foot (Acute) Cellulitis of left foot (Acute) Type 2 diabetes mellitus with diabetic polyneuropathy (Acute) PVD (peripheral vascular disease) (Acute) 1. Left Calcaneus osteomyelitis foot wounds S/P debridement on 12/11 with bone cultures, still pending (was already on abx when performed) Wound culture on the showed: M. morganii, E. coli, MSSA, and possible B. fragilis on Cefazolin, Cipro and metronidazole ID consult follow up wound cultures. 2.PAD TRISTIAN on 10/22 shows severely diminished digital-brachial index on left. on ASA follow up with Dr. Beck as outpt on 12/16 complicates healing until adequately treated 3. DM2 uncontrolled start Lantus on metforming and SSI A1C 8.2 4. VTE prophylaxis: LMWH 5. Disposition: eventually to home with [facility]. Pt non-weight bearing on LLE, but wants to go home and his brother will help. Declining SNF at this time. Code Visit Inpatient E&M: 29719 Subs Hosp L2
--- NOTE | 2018-12-13 09:36 | PN_ITS ---
Patient Problems: Active and Suspected Problems Osteomyelitis of left foot (Acute) Cellulitis of left foot (Acute) Type 2 diabetes mellitus with diabetic polyneuropathy (Acute) PVD (peripheral vascular disease) (Acute) Subjective: Feels well. No complaints. Vitals/I&O's: Vital Signs Temp Pulse Resp BP Pulse Ox 37.1 C 89 18 151/69 H 94 12/13/18 08:44 12/13/18 08:44 12/13/18 08:44 12/13/18 08:44 12/13/18 08:44 Oxygen Delivery Method Room Air Weight: 92.079 kg Body Mass Index (BMI) 28.3 Intake and Output for Last 24 Hours 12/11/18 12/12/18 12/13/18 23:59 23:59 23:59 Intake Total 3214 / 3214 1958 / 1958 120 / 120 Output Total 2150 / 2150 2400 / 2400 1200 / 1200 Balance 1064 / 1064 -441 / -441 -1080 / -1080 General: Alert, No apparent distress HEENT: Atraumatic, Normocephalic Oral: Moist Mucosa, No Gingival or Mucosal Lesions/ Ulcerations Neck: No Nodes, Thyroid Normal Size and Texture Lungs: Clear to auscultation, Normal air movement, No rhonchi, No wheeze Cardiovascular: Regular rate, Regular Rhythm, Normal S1, Normal S2, No murmurs Abdomen: Bowel Sounds Present, Soft, Non Tender, Non-Distended, No Hepato- splenomegaly Extremities: No edema, No Calf Tenderness, - - left foot bandaged--did not remove. Psych/Mental Status: Normal Affect, Appropriate Microbiology Past 72 Hours 12/11/18 16:27 Biopsy - Bone Gram Stain - Final 12/11/18 16:27 Biopsy - Bone Wound Culture - Preliminary No growth-Final to follow 12/09/18 14:50 Blood Culture (Wb) - Right Wrist Blood Culture - Preliminary No growth in 48 hours. 12/09/18 14:40 Blood Culture (Wb) - Anticubital Right Blood Culture - Preliminary No growth in 48 hours. Laboratory Results 12/12/18 11:27: POC Glucose 292 H 12/12/18 17:16: POC Glucose 131 H 12/12/18 21:12: POC Glucose 192 H 12/13/18 05:30: Sodium 141, Potassium 4.1, Chloride 103, Carbon Dioxide 31.0, Anion Gap 7, BUN 9, Creatinine 0.81, Estim Creat Clear Calc 89.09, Est GFR (MDRD) Af Amer 121, Est GFR (MDRD) Non-Af 100, BUN/Creatinine Ratio 11.1, Glucose 155 H, Calcium 9.1 12/13/18 06:43: POC Glucose 175 H Current Medications Acetaminophen (Tylenol) 650 mg PO Q6H PRN PRN PRN Reason: Mild Pain (1-3)/Temp > 100.7 F Last Admin: 12/11/18 20:44 Dose: 650 mg Aspirin (Aspirin, Baby) 81 mg PO DAILY@0800 [facility] Last Admin: 12/13/18 08:37 Dose: 81 mg Atorvastatin Calcium (Lipitor) 5 mg PO QHS [facility] Last Admin: 12/12/18 21:13 Dose: 5 mg Dextrose (D50w Syringe) 0 gm IV X1 PRN; Protocol PRN Reason: Hypoglycemia Enoxaparin Sodium (Lovenox) 40 mg SC DAILY@1000 [facility] Last Admin: 12/13/18 08:37 Dose: 40 mg Folic Acid (Folic Acid) 1 mg PO DAILY@0800 [facility] Last Admin: 12/13/18 08:36 Dose: 1 mg Glucagon () 1 mg IM .X1 PRN PRN Reason: Hypoglycemia Hydralazine HCl (Apresoline Iv) 5 mg IV Q4H PRN PRN PRN Reason: HYPERTENSION Last Admin: 12/09/18 22:09 Dose: 5 mg Cefazolin Sodium () 1 gm in 50 mls @ 100 mls/hr IV Q8 [facility] Last Admin: 12/13/18 06:13 Dose: 100 mls/hr Ciprofloxacin (Cipro) 400 mg in 200 mls @ 200 mls/hr IV Q12 [facility] Last Admin: 12/13/18 08:36 Dose: 200 mls/hr Insulin Human Lispro (Humalog Kwikpen (Bkc)) 0 unit SC ACHS [facility]; Protocol Last Admin: 12/13/18 06:45 Dose: 1 u Lisinopril (Zestril) 20 mg PO DAILY [facility] Last Admin: 12/13/18 08:37 Dose: 20 mg Lorazepam (Ativan) 1 mg PO Q8H PRN PRN PRN Reason: Alcohol Withdrawal Melatonin (Melatonin) 3 mg PO QHS [facility] Last Admin: 12/12/18 22:23 Dose: 3 mg Metformin [facility] (Glucophage) [facility] Last Admin: 12/13/18 08:36 Dose: 1,000 mg Metronidazole (Flagyl) 500 mg PO TID [facility] Last Admin: 12/13/18 06:13 Dose: 500 mg Nutritional Formula (Lactose Free) (Glucerna Shake) 120 ml PO TIDCM [facility] Last Admin: 12/13/18 08:35 Dose: 120 ml Ondansetron HCl (Zofran) 4 mg IV Q8H PRN PRN PRN Reason: NAUSEA/VOMITING Oxycodone HCl (Oxyir) 5 mg PO Q4H PRN PRN PRN Reason: Moderate Pain (4-6/10) Senna/Docusate Sodium (Senokot-S, Emily-Colace) 2 tablet PO BID PRN PRN PRN Reason: Constipation Sodium Chloride () 5 - 15 ml IV UD PRN PRN Reason: SALINE FLUSH Last Admin: 12/13/18 06:13 Dose: 10 ml Thiamine HCl (Vitamin B1) [facility] Last Admin: 12/13/18 08:36 Dose: 100 mg Medical Necessity - Tobacco Use Smoking Status: Former smoker Tobacco Use: Cigars Assessment/Plan All Active Problems Osteomyelitis of left foot (Acute) Cellulitis of left foot (Acute) Type 2 diabetes mellitus with diabetic polyneuropathy (Acute) PVD (peripheral vascular disease) (Acute) 1. Left Calcaneus osteomyelitis foot wounds * S/P debridement on 12/11 with bone cultures, still pending (was already on abx when performed) * Wound culture on the showed: M. morganii, E. coli, MSSA, and possible B. fragilis * on Cefazolin, Cipro and metronidazole * ID consult * follow up wound cultures. 2.PAD * TRISTIAN on 10/22 shows severely diminished digital-brachial index on left. * on ASA * follow up with Dr. Beck as outpt on 12/16 * complicates healing until adequately treated 3. DM2 * uncontrolled * start Lantus * on metforming and SSI * A1C 8.2 4. VTE prophylaxis: LMWH 5. Disposition: eventually to home with [facility]. Pt non-weight bearing on LLE, but wants to go home and his brother will help. Declining SNF at this time. Code Visit Inpatient E&M: 64153 Subs Hosp L2
--- NOTE | 2018-12-13 10:18 | PCM.PROGNOTE ---
Patient Problems: Active and Suspected Problems Osteomyelitis of left foot (Acute) Cellulitis of left foot (Acute) Type 2 diabetes mellitus with diabetic polyneuropathy (Acute) PVD (peripheral vascular disease) (Acute) Subjective: This 73 year old diabetic male patient was seen resting bedside this morning POD #2 s/p debridement of all necrotic, nonviable, infected soft tissue with bone biopsy of the left calcaneus. Patient had no adverse events overnight. Patient currently feels well with no complaints. Pain is controlled. Patient currently denies any feelings of nausea, vomiting, fever, chills. - Physical Exam General: Alert, Oriented x3, Cooperative, No apparent distress Extremities: No cyanosis, Capillary Refill Less than 3 Seconds, No Calf Tenderness - Negative Abhishek and Irwin signs left lower extremity, Diminished Peripheral Pulses, Edema - Minor lower extremity edema Skin: Ulcer/ Wound - Ulcer/surgical site to plantar and medial heel noted with exposed bone to the plantar aspect of ulcer site. Remaining ulcer base is mixture of granular tissue and small areas of scant slough and fibrin again today. The surrounding erythema continues to improve. No surrounding increase in warmth. There is no purulence and no malodor noted at this time. The peripheral skin is hairless and atrophic. Musculoskeletal: No Tenderness to Palpation of Joints or Extremities, - - Active range of motion toes x5 left foot Neurological: - - Loss of epicritic sensation left lower extremity Psych/Mental Status: Normal Affect, Appropriate Vital Signs Temp Pulse Resp BP Pulse Ox 98.7 F 89 18 151/69 H 94 12/13/18 08:44 12/13/18 08:44 12/13/18 08:44 12/13/18 08:44 12/13/18 08:44 Oxygen Delivery Method Room Air Weight: 92.079 kg Body Mass Index (BMI) 28.3 Intake and Output for Last 24 Hours 12/11/18 12/12/18 12/13/18 23:59 23:59 23:59 Intake Total 3214 / 3214 1958 / 1958 120 / 120 Output Total 2150 / 2150 2400 / 2400 1200 / 1200 Balance 1064 / 1064 -441 / -441 -1080 / -1080 Microbiology Past 72 Hours 12/11/18 16:27 Gram Stain - Final Biopsy - Bone Wound Culture - Preliminary No growth-Final to follow 12/09/18 14:50 Blood Culture - Preliminary Blood Culture (Wb) - Right Wrist No growth in 48 hours. 12/09/18 14:40 Blood Culture - Preliminary Blood Culture (Wb) - Anticubital Right No growth in 48 hours. Laboratory Tests Past 24 Hrs 12/13/18 05:30 Sodium 141 Potassium 4.1 Chloride 103 Carbon Dioxide 31.0 Anion Gap 7 BUN 9 Creatinine 0.81 Estim Creat Clear Calc 89.09 Est GFR (MDRD) Af Amer 121 Est GFR (MDRD) Non-Af 100 BUN/Creatinine Ratio 11.1 Glucose 155 H Calcium 9.1 POC Glucose 12/13/18 12/12/18 12/12/18 06:43 21:12 17:16 POC Glucose 175 H 192 H 131 H 12/12/18 11:27 POC Glucose 292 H Medical Necessity - Tobacco Use Smoking Status: Former smoker Tobacco Use: Cigars Assessment/Plan All Active Problems Osteomyelitis of left foot (Acute) Cellulitis of left foot (Acute) Type 2 diabetes mellitus with diabetic polyneuropathy (Acute) PVD (peripheral vascular disease) (Acute) Diabetic ulcer left foot- POD #2 s/p debridement of all necrotic, nonviable, infected soft tissue with bone biopsy of the left calcaneus OM left calcaneus cellulitis DM with neuropathy Other comorbidities This patient was carefully examined and evaluated resting bedside today. Patient is postop day #2 status post debridement of all necrotic, nonviable, infected soft tissue with bone biopsy of the left calcaneus. Patient had no adverse events overnight and his pain continues to be well controlled. Patient currently feeling well with no complaints. Patient is afebrile and vital signs are stable. Deep wound cultures taken on Friday show growth of Morganella morganii sp morgani, E. coli, staph aureus, and presumptive B fragilis group. Bone biopsy cultures still pending. Blood cultures show no growth after 48 hours. Patient remains on IV antibiotics. Patient to see infectious disease on Friday. No strikethrough was noted to the dressing again today. The dressing was again taken down and surgical site/ulcer site was carefully examined and evaluated. The site was then carefully flushed with copious amounts of normal sterile saline. Once complete, the site was then dressed with Betadine soaked 2 x 2's followed by dry 4 x 4's, ABD, and Kerlix. This dressing can be reinforced by nursing if needed. As noted before, this patient does have PVD and will be following up with an already scheduled appointment with Dr. Beck with vascular surgery on Friday. The patient is to keep the dressing clean dry and intact. The patient is to be nonweightbearing to the left foot with assistance of walker. Patient to keep left foot/heel completely offloaded at all times while seated or laying down. Continued medical management and DVT prophylaxis is appreciated by primary team. Patient to follow up with Dr. Cifuentes at the wound healing center upon discharge. Podiatry will continue to follow this patient while in house.
[2018-12-13 12:01] LABS: Bedside Glucose 185 mg/dL (70-110)
[2018-12-13 14:05] VITALS: BP 126/80; PULSE 92; RESP 18; TEMP 37.1; O2SAT 94
[2018-12-13 16:56] LABS: Bedside Glucose 193 mg/dL (70-110)
[2018-12-13 20:27] VITALS: BP 139/78; PULSE 92; RESP 16; TEMP 36.9; O2SAT 98
[2018-12-13] MEDS: MELATONIN 3 MG TABLET PO (21:54)
[2018-12-13] MEDS: Atorvastatin Calcium 10 MG Tablet 5 MG PO (21:54)
[2018-12-13 22:05] LABS: Bedside Glucose 167 mg/dL (70-110)
[2018-12-14 02:58] VITALS: BP 138/79; PULSE 76; RESP 16; TEMP 36.7; O2SAT 96
[2018-12-14] MEDS: 0.9% NaCl Peripheral Flush Adult/Peds IV ×2 (05:33→14:14)
[2018-12-14] MEDS: Cefazolin 1 GM/50 ML BAG IV ×2 (05:33→14:13)
[2018-12-14] MEDS: metroNIDAZOLE 500 MG Tablet PO ×2 (05:33→14:13)
[2018-12-14] MEDS: Insulin Lispro 100 UNIT/ML INSULN.PEN SC ×3 (06:40→17:17)
[2018-12-14 06:45] LABS: Bedside Glucose 174 mg/dL (70-110)
[2018-12-14 08:07] VITALS: BP 137/87; PULSE 82; RESP 18; TEMP 37.2; O2SAT 94
--- NOTE | 2018-12-14 08:27 | NURSING ---
wound photo: left heel
--- NOTE | 2018-12-14 08:28 | NURSING ---
wound photo: left heel
[2018-12-14] MEDS: Thiamine Hydrochloride 100 MG Tablet PO (09:05)
[2018-12-14] MEDS: Enoxaparin 40 MG/0.4 ML Syringe SC (09:05)
[2018-12-14] MEDS: Aspirin 81 MG TAB.CHEW PO (09:05)
[2018-12-14] MEDS: Folic Acid 1 MG Tablet PO (09:05)
[2018-12-14] MEDS: metFORMIN HCl 1,000 MG Tablet 1000 MG PO ×2 (09:05→17:18)
[2018-12-14] MEDS: Lisinopril 20 MG Tablet PO (09:06)
[2018-12-14] MEDS: Glucerna Shake 120 ML LIQUID PO ×3 (09:08→17:17)
[2018-12-14] MEDS: Ciprofloxacin 400 MG/200 ML BAG 200 MG IV (09:08)
[2018-12-14 11:01] LABS: Bedside Glucose 306 mg/dL (70-110)
--- NOTE | 2018-12-14 13:27 | PCM.PN.HOSP ---
Patient Problems: Active and Suspected Problems Osteomyelitis of left foot (Acute) Cellulitis of left foot (Acute) Type 2 diabetes mellitus with diabetic polyneuropathy (Acute) PVD (peripheral vascular disease) (Acute) Subjective: Patient seen and examined. He had no complaints. Review of systems otherwise negative. Also has been dressed by wound care nurse. Labs and vitals reviewed. He is awaiting ID evaluation. Vitals/I&O's: Vital Signs Temp Pulse Resp BP Pulse Ox 98.9 F 82 18 137/87 H 94 12/14/18 08:07 12/14/18 08:07 12/14/18 08:07 12/14/18 08:07 12/14/18 08:07 Oxygen Delivery Method Room Air Weight: 202 lb 15.991 oz Body Mass Index (BMI) 28.3 Intake and Output for Last 24 Hours 12/12/18 12/13/18 12/14/18 23:59 23:59 23:59 Intake Total 1959 / 1958 1620 / 1620 890 / 890 Output Total 2400 / 2400 3150 / 3150 1300 / 1300 Balance -441 / -441 -1530 / -1530 -410 / -410 General: Alert, Oriented x3, Cooperative, No apparent distress HEENT: Atraumatic, PERRLA, EOMI, Normocephalic Oral: Moist Mucosa Neck: Supple, No JVD, Negative Carotid Bruits Lungs: Clear to auscultation, Normal air movement, No rhonchi, No wheeze, No rales Cardiovascular: Regular rate, Regular Rhythm, Normal S1, Normal S2, No murmurs Abdomen: Bowel Sounds Present, Soft, Non Tender, Non-Distended, No Hepato-splenomegaly Extremities: No clubbing, No cyanosis, No edema, Capillary Refill Less than 3 Seconds Skin: - - 2 deep ulcers on heel of left foot, with minimal slough in the floor of the ulcers. Musculoskeletal: No Tenderness to Palpation of Joints or Extremities Lymphatic: No Cervical, Supraclavicular, or Inguinal Adenopathy Neurological: Cranial nerves II-XII grossly intact, Neuro grossly intact Psych/Mental Status: Normal Affect, Appropriate, Alert and oriented to time, place, person, mood and affect Microbiology Past 72 Hours 12/11/18 16:27 Biopsy - Bone Gram Stain - Final 12/11/18 16:27 Biopsy - Bone Wound Culture - Preliminary No growth-Final to follow 12/11/18 16:27 Biopsy - Bone Anaerobic Culture - Preliminary No growth in 48 hours. 12/09/18 14:50 Blood Culture (Wb) - Right Wrist Blood Culture - Final No growth in 5 days. 12/09/18 14:40 Blood Culture (Wb) - Anticubital Right Blood Culture - Final No growth in 5 days. Laboratory Results 12/13/18 16:45: POC Glucose 193 H 12/13/18 21:44: POC Glucose 167 H 12/14/18 06:39: POC Glucose 174 H 12/14/18 10:53: POC Glucose 306 H Current Medications Acetaminophen (Tylenol) 650 mg PO Q6H PRN PRN PRN Reason: Mild Pain (1-3)/Temp > 100.7 F Last Admin: 12/11/18 20:44 Dose: 650 mg Aspirin (Aspirin, Baby) 81 mg PO DAILY@0800 [facility] Last Admin: 12/14/18 09:05 Dose: 81 mg Atorvastatin Calcium (Lipitor) 5 mg PO QHS [facility] Last Admin: 12/13/18 21:54 Dose: 5 mg Dextrose (D50w Syringe) 0 gm IV X1 PRN; Protocol PRN Reason: Hypoglycemia Enoxaparin Sodium (Lovenox) 40 mg SC DAILY@1000 [facility] Last Admin: 12/14/18 09:05 Dose: 40 mg Folic Acid (Folic Acid) 1 mg PO DAILY@0800 [facility] Last Admin: 12/14/18 09:05 Dose: 1 mg Glucagon () 1 mg IM .X1 PRN PRN Reason: Hypoglycemia Hydralazine HCl (Apresoline Iv) 5 mg IV Q4H PRN PRN PRN Reason: HYPERTENSION Last Admin: 12/09/18 22:09 Dose: 5 mg Cefazolin Sodium () 1 gm in 50 mls @ 100 mls/hr IV Q8 [facility] Last Admin: 12/14/18 05:33 Dose: 100 mls/hr Ciprofloxacin (Cipro) 400 mg in 200 mls @ 200 mls/hr IV Q12 [facility] Last Admin: 12/14/18 09:08 Dose: 200 mls/hr Insulin Glargine (Lantus (Bkc)) 10 units SC DAILY [facility] Last Admin: 12/14/18 09:06 Dose: 10 units Insulin Human Lispro (Humalog Kwikpen (Bkc)) 0 unit SC ACHS [facility]; Protocol Last Admin: 12/14/18 12:07 Dose: 4 u Lisinopril (Zestril) 20 mg PO DAILY [facility] Last Admin: 12/14/18 09:06 Dose: 20 mg Lorazepam (Ativan) 1 mg PO Q8H PRN PRN PRN Reason: Alcohol Withdrawal Melatonin (Melatonin) 3 mg PO QHS [facility] Last Admin: 12/13/18 21:54 Dose: 3 mg Met[facility] ([facility]) [facility] Last Admin: 12/14/18 09:05 Dose: 1,000 mg Metronidazole (Flagyl) 500 mg PO TID [facility] Last Admin: 12/14/18 05:33 Dose: 500 mg Nutritional Formula (Lactose Free) (Glucerna Shake) 120 ml PO TIDCM [facility] Last Admin: 12/14/18 12:05 Dose: 120 ml Ondansetron HCl (Zofran) 4 mg IV Q8H PRN PRN PRN Reason: NAUSEA/VOMITING Oxycodone HCl (Oxyir) 5 mg PO Q4H PRN PRN PRN Reason: Moderate Pain (4-6/10) Senna/Docusate Sodium (Senokot-S, Emily-Colace) 2 tablet PO BID PRN PRN PRN Reason: Constipation Sodium Chloride () 5 - 15 ml IV UD PRN PRN Reason: SALINE FLUSH Last Admin: 12/14/18 05:33 Dose: 15 ml Thiamine HCl (Vitamin B1) [facility] Last Admin: 12/14/18 09:05 Dose: 100 mg Medical Necessity - Tobacco Use Smoking Status: Former smoker Tobacco Use: Cigars Assessment/Plan All Active Problems Osteomyelitis of left foot (Acute) Cellulitis of left foot (Acute) Type 2 diabetes mellitus with diabetic polyneuropathy (Acute) PVD (peripheral vascular disease) (Acute) 1. LEft calcaneal osteomyelitis s/p debridement on 12/11/18. blood cultures show no growth. wound cultures and gram stain showed no growth wound culture on 12/09 showed M. morgagnii, E. Coli MSSA and possible B. fragilis on IV cefazolin, ciprofloxacin and metronidazole ID consulted, awaiting rec;s 2. PAD: on aspirin. has follow up with Dr Beck on 12/16/18. 3. Diabetes mellitus Poorly controlled. A1c was 8.2. Has been started on Lantus 10 units nightly. Hold metformin. Insulin sliding scale. Accuchecks ACHS DVT prophylaxis: lovenox Disposition: for dc home with C likely tomorrow. patient declining SNF> Code Visit Inpatient E&M: 76615 Subs Hosp L2
--- NOTE | 2018-12-14 13:38 | PN_ITS ---
Subjective: Infectious disease to see patient today, then likely discharge today. Patient without fevers, or leukocytosis. - Physical Exam Extremities: - - Dressing to foot was changed today left foot by wound nurse - reviewed wound photos- ulcerations stable with granular tissue and some fibrotic tissue present, no cellulitis present or necrosis, no streaking, no visible abscess. Vital Signs Temp Pulse Resp BP Pulse Ox 98.9 F 82 18 137/87 H 94 12/14/18 08:07 12/14/18 08:07 12/14/18 08:07 12/14/18 08:07 12/14/18 08:07 Oxygen Delivery Method Room Air Weight: 92.079 kg Body Mass Index (BMI) 28.3 Intake and Output for Last 24 Hours 12/12/18 12/13/18 12/14/18 23:59 23:59 23:59 Intake Total 1958 / 1958 1620 / 1620 890 / 890 Output Total 2400 / 2400 3150 / 3150 1300 / 1300 Balance -441 / -441 -1530 / -1530 -410 / -410 Microbiology Past 72 Hours 12/11/18 16:27 Gram Stain - Final Biopsy - Bone Wound Culture - Preliminary No growth-Final to follow Anaerobic Culture - Preliminary No growth in 48 hours. 12/09/18 14:50 Blood Culture - Final Blood Culture (Wb) - Right Wrist No growth in 5 days. 12/09/18 14:40 Blood Culture - Final Blood Culture (Wb) - Anticubital Right No growth in 5 days. POC Glucose 12/14/18 12/14/18 12/13/18 10:53 06:39 21:44 POC Glucose 306 H 174 H 167 H 12/13/18 16:45 POC Glucose 193 H Medical Necessity - Tobacco Use Smoking Status: Former smoker Tobacco Use: Cigars Assessment/Plan All Active Problems Osteomyelitis of left foot (Acute) Cellulitis of left foot (Acute) Type 2 diabetes mellitus with diabetic polyneuropathy (Acute) PVD (peripheral vascular disease) (Acute) Diabetic ulcer left foot- s/p debridement of all necrotic, nonviable, infected soft tissue with bone biopsy of the left calcaneus OM left calcaneus cellulitis DM with neuropathy Other comorbidities Patient is afebrile and vital signs are stable. Reviewed culture results so far. Infectious Disease to see patient for antibiotic recommendations. Also as noted before, this patient does have PVD and will be following up with an already scheduled appointment with Dr. Beck with vascular surgery on Friday. Dressing has been changed, and patient to have [facility] for dressing changes/care, patient not agreeable to go to [facility]. he patient is to be nonweightbearing to the left foot with assistance of walker. Patient to keep left foot/heel completely offloaded at all times while seated or laying down. Medical management per medicine team. Patient to follow up with Dr. Cifuentes at the wound healing center upon discharge.
--- NOTE | 2018-12-14 13:39 | PN_ITS ---
Patient Problems: Active and Suspected Problems Osteomyelitis of left foot (Acute) Cellulitis of left foot (Acute) Type 2 diabetes mellitus with diabetic polyneuropathy (Acute) PVD (peripheral vascular disease) (Acute) Subjective: Patient seen and examined. He had no complaints. Review of systems otherwise negative. Also has been dressed by wound care nurse. Labs and vitals reviewed. He is awaiting ID evaluation. Vitals/I&O's: Vital Signs Temp Pulse Resp BP Pulse Ox 98.9 F 82 18 137/87 H 94 12/14/18 08:07 12/14/18 08:07 12/14/18 08:07 12/14/18 08:07 12/14/18 08:07 Oxygen Delivery Method Room Air Weight: 202 lb 15.991 oz Body Mass Index (BMI) 28.3 Intake and Output for Last 24 Hours 12/12/18 12/13/18 12/14/18 23:59 23:59 23:59 Intake Total 1959 / 1958 1620 / 1620 890 / 890 Output Total 2400 / 2400 3150 / 3150 1300 / 1300 Balance -441 / -441 -1530 / -1530 -410 / -410 General: Alert, Oriented x3, Cooperative, No apparent distress HEENT: Atraumatic, PERRLA, EOMI, Normocephalic Oral: Moist Mucosa Neck: Supple, No JVD, Negative Carotid Bruits Lungs: Clear to auscultation, Normal air movement, No rhonchi, No wheeze, No rales Cardiovascular: Regular rate, Regular Rhythm, Normal S1, Normal S2, No murmurs Abdomen: Bowel Sounds Present, Soft, Non Tender, Non-Distended, No Hepato- splenomegaly Extremities: No clubbing, No cyanosis, No edema, Capillary Refill Less than 3 Seconds Skin: - - 2 deep ulcers on heel of left foot, with minimal slough in the floor of the ulcers. Musculoskeletal: No Tenderness to Palpation of Joints or Extremities Lymphatic: No Cervical, Supraclavicular, or Inguinal Adenopathy Neurological: Cranial nerves II-XII grossly intact, Neuro grossly intact Psych/Mental Status: Normal Affect, Appropriate, Alert and oriented to time, place, person, mood and affect Microbiology Past 72 Hours 12/11/18 16:27 Biopsy - Bone Gram Stain - Final 12/11/18 16:27 Biopsy - Bone Wound Culture - Preliminary No growth-Final to follow 12/11/18 16:27 Biopsy - Bone Anaerobic Culture - Preliminary No growth in 48 hours. 12/09/18 14:50 Blood Culture (Wb) - Right Wrist Blood Culture - Final No growth in 5 days. 12/09/18 14:40 Blood Culture (Wb) - Anticubital Right Blood Culture - Final No growth in 5 days. Laboratory Results 12/13/18 16:45: POC Glucose 193 H 12/13/18 21:44: POC Glucose 167 H 12/14/18 06:39: POC Glucose 174 H 12/14/18 10:53: POC Glucose 306 H Current Medications Acetaminophen (Tylenol) 650 mg PO Q6H PRN PRN PRN Reason: Mild Pain (1-3)/Temp > 100.7 F Last Admin: 12/11/18 20:44 Dose: 650 mg Aspirin (Aspirin, Baby) 81 mg PO DAILY@0800 [facility] Last Admin: 12/14/18 09:05 Dose: 81 mg Atorvastatin Calcium (Lipitor) 5 mg PO QHS [facility] Last Admin: 12/13/18 21:54 Dose: 5 mg Dextrose (D50w Syringe) 0 gm IV X1 PRN; Protocol PRN Reason: Hypoglycemia Enoxaparin Sodium (Lovenox) 40 mg SC DAILY@1000 [facility] Last Admin: 12/14/18 09:05 Dose: 40 mg Folic Acid (Folic Acid) 1 mg PO DAILY@0800 [facility] Last Admin: 12/14/18 09:05 Dose: 1 mg Glucagon () 1 mg IM .X1 PRN PRN Reason: Hypoglycemia Hydralazine HCl (Apresoline Iv) 5 mg IV Q4H PRN PRN PRN Reason: HYPERTENSION Last Admin: 12/09/18 22:09 Dose: 5 mg Cefazolin Sodium () 1 gm in 50 mls @ 100 mls/hr IV Q8 [facility] Last Admin: 12/14/18 05:33 Dose: 100 mls/hr Ciprofloxacin (Cipro) 400 mg in 200 mls @ 200 mls/hr IV Q12 [facility] Last Admin: 12/14/18 09:08 Dose: 200 mls/hr Insulin Glargine (Lantus (Bkc)) 10 units SC DAILY [facility] Last Admin: 12/14/18 09:06 Dose: 10 units Insulin Human Lispro (Humalog Kwikpen (Bkc)) 0 unit SC ACHS [facility]; Protocol Last Admin: 12/14/18 12:07 Dose: 4 u Lisinopril (Zestril) 20 mg PO DAILY [facility] Last Admin: 12/14/18 09:06 Dose: 20 mg Lorazepam (Ativan) 1 mg PO Q8H PRN PRN PRN Reason: Alcohol Withdrawal Melatonin (Melatonin) 3 mg PO QHS [facility] Last Admin: 12/13/18 21:54 Dose: 3 mg Metformin [facility] ([facility]) [facility] Last Admin: 12/14/18 09:05 Dose: 1,000 mg Metronidazole (Flagyl) 500 mg PO TID [facility] Last Admin: 12/14/18 05:33 Dose: 500 mg Nutritional Formula (Lactose Free) (Glucerna Shake) 120 ml PO TIDCM [facility] Last Admin: 12/14/18 12:05 Dose: 120 ml Ondansetron HCl (Zofran) 4 mg IV Q8H PRN PRN PRN Reason: NAUSEA/VOMITING Oxycodone HCl (Oxyir) 5 mg PO Q4H PRN PRN PRN Reason: Moderate Pain (4-6/10) Senna/Docusate Sodium (Senokot-S, Emily-Colace) 2 tablet PO BID PRN PRN PRN Reason: Constipation Sodium Chloride () 5 - 15 ml IV UD PRN PRN Reason: SALINE FLUSH Last Admin: 12/14/18 05:33 Dose: 15 ml Thiamine HCl (Vitamin B1) [facility] Last Admin: 12/14/18 09:05 Dose: 100 mg Medical Necessity - Tobacco Use Smoking Status: Former smoker Tobacco Use: Cigars Assessment/Plan All Active Problems Osteomyelitis of left foot (Acute) Cellulitis of left foot (Acute) Type 2 diabetes mellitus with diabetic polyneuropathy (Acute) PVD (peripheral vascular disease) (Acute) 1. LEft calcaneal osteomyelitis * s/p debridement on 12/11/18. * blood cultures show no growth. wound cultures and gram stain showed no growth * wound culture on 12/09 showed M. morgagnii, E. Coli MSSA and possible B. fragilis * on IV cefazolin, ciprofloxacin and metronidazole * ID consulted, awaiting rec;s * 2. PAD: on aspirin. has follow up with Dr Beck on 12/16/18. 3. Diabetes mellitus * Poorly controlled. * A1c was 8.2. Has been started on Lantus 10 units nightly. Hold metformin. Insulin sliding scale. Accuchecks ACHS * DVT prophylaxis: lovenox Disposition: for dc home with C likely tomorrow. patient declining SNF> Code Visit Inpatient E&M: [id number] Subs Hosp L2
--- NOTE | 2018-12-14 13:52 | CASEMGMT ---
MICHELLE LAROSE in to discuss discharge needs with patient. Patient states he has brother and [id number] that will be helping him at home. Patient states he also has a knee walker being delivered from [employer] tomorrow. MICHELLE LAROSE discussed C and patient is agreeable to [facility] and would like [facility]. Referral made to [facility] for care home. Awaiting ID consult for antibiotics at discharge. MICHELLE LAROSE will continue to follow this patient and plan for a safe discharge.
[2018-12-14 14:09] VITALS: BP 140/92; PULSE 95; RESP 18; TEMP 37.3; O2SAT 95
--- NOTE | 2018-12-14 16:44 | CON.PCM_ITS ---
Problem List (1) Osteomyelitis of left foot Status: Acute Reason for Consult: osteo Consulted by: Dr. Hartley History of Present Illness: The patient is a 73 year old M with DM, no neuropathy, who presented with 2 weeks of progressive L heel ulcer with pain, swelling, and drainage. Some chills prior to admit. Had wound cx sent at wound clinic. Admitted here, MRI done, initially on vanc/zosyn. Taken to OR 12/[address] Griffin for debridement. Now on cipro/flagyl/cefazolin. Feeling better, family at bedside provided additional history. Full ROS performed and neg except as noted above. - Medical History Past Medical History (Chronic Problems): Chronic Problems Chronic ulcer of left foot with fat layer exposed (Chronic) Other specified peripheral vascular diseases (Chronic) Type 2 diabetes mellitus with diabetic polyneuropathy (Chronic) Achilles rupture, left (Chronic) Delayed wound healing (Chronic) Malnutrition (Chronic) Peripheral vascular disease (Chronic) Hypertension (Chronic) Obesity (BMI 30.0-34.9) (Chronic) Hyperlipidemia (Chronic) Diabetic neuropathy (Chronic) EtOH dependence (Chronic) Allergies/Adverse Reactions: Allergies No Known Allergies Allergy (Verified 12/09/18 13:35) Home Medications: Ambulatory Orders Medication Instructions Recorded Aspirin [Aspirin, Baby] 81 mg PO DAILY@0800 07/03/15 Lovastatin [Mevacor] 20 mg PO DAILY 07/03/15 Metformin HCl [Glucophage] 1,000 mg PO BIDCM 07/03/15 Multivit with Minerals/Lutein [Pub 1 each PO DAILY 07/03/15 Multivitamin 50 Plus Tab] Collagenase [Santyl] 1 applicatio TOPICAL QODAY 12/09/18 Lisinopril 20 mg PO DAILY 12/09/18 Metronidazole [Flagyl] 500 mg PO TID #120 tablet 12/14/18 levoFLOXacin tablet [Levaquin 500 mg PO DAILY #40 tablet 12/14/18 tablet] - Social History SMOKING STATUS:: Former smoker Vital Signs Temp Pulse Resp BP Pulse Ox 99.1 F 95 18 140/92 H 140 12/14/18 14:09 12/14/18 14:09 12/14/18 14:09 12/14/18 14:09 12/14/18 14:09 Oxygen Delivery Method Room Air Weight: 92.079 kg Body Mass Index (BMI) 28.3 Microbiology Past 72 Hours 12/11/18 16:27 Gram Stain - Final Biopsy - Bone Wound Culture - Preliminary No growth-Final to follow Anaerobic Culture - Preliminary No growth in 48 hours. 12/09/18 14:50 Blood Culture - Final Blood Culture (Wb) - Right Wrist No growth in 5 days. 12/09/18 14:40 Blood Culture - Final Blood Culture (Wb) - Anticubital Right No growth in 5 days. - Other Studies Radiology: []reviewed Other Studies: [] Route of nutrition/ use of supplements: [] Nutritional Intake: [] IV Site: [] Byrd Catheter: [] - Physical Exam General: Alert, Oriented x3, Cooperative, No apparent distress HEENT: Atraumatic, EOMI Neck: Supple, No Nodes Lungs: Clear to auscultation, Normal air movement Cardiovascular: Regular rate, Regular Rhythm Abdomen: Soft, Non Tender, Non-Distended Extremities: Edema - mild Skin: Ulcer/ Wound - L heel wrapped IV Site: Peripheral, without redness Musculoskeletal: No Tenderness to Palpation of Joints or Extremities Neurological: Cranial nerves II-XII grossly intact - Assessment/Plan Antibiotics: [] Assessment/Plan: [] Active and Suspected Problems Osteomyelitis of left foot (Acute) Cellulitis of left foot (Acute) Type 2 diabetes mellitus with diabetic polyneuropathy (Acute) PVD (peripheral vascular disease) (Acute) L heel osteo - sp I&D by Dr. Griffin 12/11/18. Bone cx neg. Wound cx with mssa, morganella, ecoli. Discussed options with him. Plan will be for 6 weeks total of abx, stop date 01/22/19, will treat with po levaquin and flagyl. He is to avoid etoh, monitor for diarrhea, peripheral neuropathy. Will need bmp, cbc, LFT, and ESR [id number]. I can follow at wound clinic in 2-3 weeks. Will follow, thank you, rx written. D/w telephonic nurse case manager.
--- NOTE | 2018-12-14 16:57 | DCINST_ITS ---
- Discharge Diagnoses Current Active Problems: Current Active and Chronic Problems Osteomyelitis of left foot (Acute) Cellulitis of left foot (Acute) Type 2 diabetes mellitus with diabetic polyneuropathy (Acute) PVD (peripheral vascular disease) (Acute) You will use the following diet at home:: Calorie/Carbohydrate Controlled (specify 1200, 1400, etc) Discharge Activity: Return to Normal Activity Weight Bearing Status: Weight bearing as tolerated Call your doctor if your incision/area has: Increased Pain/ Swelling, Increased Redness, Foul Smelling Discharge Call your doctor if you observe: Fever of 101 or Higher Instructions: Discharge Instructions for Osteomyelitis Additional Instructions: CBC, BMP, LFTs as well as ESR every 2 weeks, results to be sent to ID doctor and PCP. Avoid alcohol and monitor for diarrhea and peripheral neuropathy Allergies/Adverse Reactions: Allergies No Known Allergies Allergy (Verified 12/09/18 13:35) Medications to take at Discharge Aspirin [Aspirin, Baby] 81 mg PO DAILY@0800 07/03/15 Lovastatin [Mevacor] 20 mg PO DAILY 07/03/15 Metformin HCl [Glucophage] 1,000 mg PO BIDCM 07/03/15 Multivit with Minerals/Lutein [Pub Multivitamin 50 Plus Tab] 1 each PO DAILY 07/03/15 Collagenase [Santyl] 1 applicatio TOPICAL QODAY 12/09/18 Lisinopril 20 mg PO DAILY 12/09/18 Metronidazole [Flagyl] 500 mg PO TID #120 tablet 12/14/18 levoFLOXacin tablet [Levaquin tablet] 500 mg PO DAILY #40 tablet 12/14/18 The following prescriptions were given: levoFLOXacin tablet [Levaquin tablet] 500 mg PO DAILY #40 tablet Metronidazole [Flagyl] 500 mg PO TID #120 tablet Primary Care Physician: Marcellus Moore MD [Primary Care Provider] - Please follow up with your Primary Care Physician in: one week Test Results: Test results from this visit will be discussed in further detail at your follow- up appointment, if applicable. Please Follow Up With: Alfa Luna MD When: 1-2 weeks Please Follow Up With: Juan Harvey DPM When: 1 week Proposed Discharge Date: 12/14/18
--- NOTE | 2018-12-14 17:00 | DS.PCM_ITS ---
Discharge Date and Diagnosis - Problem List Patient Problems: Active and Suspected Problems Osteomyelitis of left foot (Acute) Cellulitis of left foot (Acute) Type 2 diabetes mellitus with diabetic polyneuropathy (Acute) PVD (peripheral vascular disease) (Acute) Date of Admission: 12/09/18 Date of Discharge: 12/14/18 - Primary Discharge Diagnosis Active and Suspected Problems Osteomyelitis of left foot (Acute) Cellulitis of left foot (Acute) Type 2 diabetes mellitus with diabetic polyneuropathy (Acute) PVD (peripheral vascular disease) (Acute) - Secondary Discharge Diagnosis Chronic Problems Chronic ulcer of left foot with fat layer exposed (Chronic) Other specified peripheral vascular diseases (Chronic) Type 2 diabetes mellitus with diabetic polyneuropathy (Chronic) Achilles rupture, left (Chronic) Delayed wound healing (Chronic) Malnutrition (Chronic) Peripheral vascular disease (Chronic) Hypertension (Chronic) Obesity (BMI 30.0-34.9) (Chronic) Hyperlipidemia (Chronic) Diabetic neuropathy (Chronic) EtOH dependence (Chronic) Hospital Course and Treatment Imaging Results: Diagnostic Data Foot X-Ray 12/09/18 15:15 IMPRESSION: Mild cortical erosion of the posterior tuberosity calcaneus deep to the soft tissue ulcer, worrisome for osteomyelitis. Arthrosis of the first metatarsophalangeal joint. Chronic fracture deformity of the first proximal phalanx. Electronically Signed: Kristian Slade MD at 15:44 EDT Tel , Service support , Lower Extremity MRI 12/10/18 09:17 IMPRESSION: Osteomyelitis of the posterior tuberosity of the calcaneus. Partial tear and tendinosis of the Achilles tendon. Atrophy of the abductor digiti minimi muscle. Small calcaneocuboid joint effusion. Soft tissue ulcers of the heel with adjacent edema in the subcutis adipose space. 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 He had initia miguel started seeing podiatry on account of left Achilles fraction was instructed to wear walking boot. Due to friction with wearing the boot he developed a left heel wound which worsened over 3 weeks prior to admission. He had debridement done by podiatry on 12/09/2018 and cultures were sent. He also has a history of peripheral vascular disease and was due to follow-up with Dr. Beck the vascula r surgeon. He was admitted and managed for suspected osteomyelitis of the left heel. He was started on IV vancomycin and Zosyn. ID and podiatry were consulted. MRI of the left lower extremity was ordered which showed suspected osteomyelitis of the posterior tuberosity of the calcaneus. It also showed partial tear of the Achilles tendon which patient had already been in treatment for prior to admission. He had a repeat debridement and bone biopsy done on 12/11/2018. Initial wound cultures on 12/09/2018 showed M. morgagnii, E. Coli MSSA and possible B. fragilis. BLood cultures were negative. Antibiotics were narrowed to IV cefazolin, IV ciprofloxacin and IV metronidazole. Patient remained stable and was discharged home on 12/14/2018 with home health care. Per ID, he was discharged home on p.o. Levaquin and p.o. Flagyl. Wound culture was negative. He is to have the antibiotics for 6 weeks with a stop date of 01/22/2019 and is to have CBC, BMP, LFT and ESR done every 2 weeks. He was discharged home on 12/14/2018 and is to follow-up with his PCP and infectious disease doctor. Patient seen and examined prior to discharge. He had no complaints and felt well. Review of systems otherwise negative. Labs and vitals reviewed. Home medications reviewed and reconciled. o/e: Vital Signs Height 5 ft 11 in Weight: 202 lb 15.991 oz Weight in Pounds 203.0 lbs Pulse Ox 95 Temperature 99.1 F Pulse Rate 95 Respiratory Rate 18 Blood Pressure [2nd BP] 128/83 Blood Pressure 140/92 Blood Pressure Position [2nd Semi-Fowlers BP] Blood Pressure Position Left Lateral [] General: Alert, Oriented x3, Cooperative, No apparent distress HEENT: Atraumatic, PERRLA, EOMI, Normocephalic Oral: Moist Mucosa Neck: Supple, No JVD, Negative Carotid Bruits Lungs: Clear to auscultation, Normal air movement, No rhonchi, No wheeze, No rales Cardiovascular: Regular rate, Regular Rhythm, Normal S1, Normal S2, No murmurs Abdomen: Bowel Sounds Present, Soft, Non Tender, Non-Distended, No Hepato- splenomegaly Extremities: No clubbing, No cyanosis, No edema, Capillary Refill Less than 3 Seconds Skin: - - 2 deep ulcers on heel of left foot, with minimal slough in the floor of the ulcers. Musculoskeletal: No Tenderness to Palpation of Joints or Extremities Lymphatic: No Cervical, Supraclavicular, or Inguinal Adenopathy Neurological: Cranial nerves II-XII grossly intact, Neuro grossly intact Psych/Mental Status: Normal Affect, Appropriate, Alert and oriented to time, place, person, mood and affect Plan as above. He is also to follow up with wound care for dressing of his heel ulcers. Patient Problems: Active and Suspected Problems Osteomyelitis of left foot (Acute) Cellulitis of left foot (Acute) Type 2 diabetes mellitus with diabetic polyneuropathy (Acute) PVD (peripheral vascular disease) (Acute) - Physical Exam Vital Signs Temp Pulse Resp BP Pulse Ox 99.1 F 95 18 140/92 H 140 12/14/18 14:09 12/14/18 14:09 12/14/18 14:09 12/14/18 14:09 12/14/18 14:09 Oxygen Delivery Method Room Air Weight: 202 lb 15.991 oz Body Mass Index (BMI) 28.3 Intake and Output for Last 24 Hours 12/12/18 12/13/18 12/14/18 23:59 23:59 23:59 Intake Total 1958 1620 / 1620 890 / 890 Output Total 2400 / 2400 3150 / 3150 1300 / 1300 Balance -441 / -441 -1530 / -1530 -410 / -410 Microbiology Past 72 Hours 12/11/18 16:27 Gram Stain - Final Biopsy - Bone Wound Culture - Preliminary No growth-Final to follow Anaerobic Culture - Preliminary No growth in 48 hours. 12/09/18 14:50 Blood Culture - Final Blood Culture (Wb) - Right Wrist No growth in 5 days. 12/09/18 14:40 Blood Culture - Final Blood Culture (Wb) - Anticubital Right No growth in 5 days. POC Glucose 12/14/18 12/14/18 12/13/18 10:53 06:39 21:44 POC Glucose 306 H 174 H 167 H Discharge Diet: 1800 Calorie Control Diet Discharge Activity: Return to Normal Activity Weight Bearing Status: Weight bearing as tolerated Call your doctor if your incision/area has: Increased Pain/ Swelling, Increased Redness, Foul Smelling Discharge Call your doctor if you observe: Fever of 101 or Higher Home Medications: Medications to take at Discharge Aspirin [Aspirin, Baby] 81 mg PO DAILY@0800 07/03/15 Lovastatin [Mevacor] 20 mg PO DAILY 07/03/15 Metformin HCl [Glucophage] 1,000 mg PO BIDCM 07/03/15 Multivit with Minerals/Lutein [Pub Multivitamin 50 Plus Tab] 1 each PO DAILY 07/03/15 Collagenase [Santyl] 1 applicatio TOPICAL QODAY 12/09/18 Lisinopril 20 mg PO DAILY 12/09/18 Metronidazole [Flagyl] 500 mg PO TID #120 tablet 12/14/18 levoFLOXacin tablet [Levaquin tablet] 500 mg PO DAILY #40 tablet 12/14/18 Following Prescrptions Were Given to Patient: levoFLOXacin tablet [Levaquin tablet] 500 mg PO DAILY #40 tablet Metronidazole [Flagyl] 500 mg PO TID #120 tablet Primary Care Physician: Marcellus Moore MD [Primary Care Provider] - Please follow up with your Primary Care Physician in: one week Please Follow Up With: Alfa Luna MD When: 1-2 weeks Please Follow Up With: Juan Harvey DPM When: 1 week Patient Instructions: Discharge Instructions for Osteomyelitis Disposition: Home with Home Health Minutes spent on discharge:: 40 Patient Condition:: Stable Medical Necessity - Tobacco Use Smoking Status: Former smoker Tobacco Use: Cigars Meaningful Use Info Meaningful Use Diagnoses (Choose all that apply): None applicable Code Visit Inpatient E&M: 65907 Disch Hosp
[2018-12-14 18:07] VITALS: BP 154/85; PULSE 84; RESP 18; TEMP 36.8; O2SAT 98
[2018-12-14 18:32] VITALS: BP 154/85; PULSE 84; RESP 18; TEMP 36.8; O2SAT 98
[2018-12-15 00:56] LABS: Bedside Glucose 159 mg/dL (70-110)
--- NOTE | 2018-12-15 14:33 | CASEMGMT ---
MICHELLE LAROSE DC PHONE CALL DC DATE: 12/14/18 DC Disposition: Home w/[facility] LACE/STRATA:06/30 Intro role of CM to patient via phone. Pt states he does not have questions re: instructions, f/u or prescriptions. Was able to have prescriptions filled. Stated flagyl was partial fill and pharmacy is ordering in more medication for remainder of prescription. Pt states [facility] is going to see pt on . Pt has wound center appt tomorrow. No care improvement suggestions given, pt states his care was excellent. Kyra ADAM RN ACM.
== END 2018-12-14 18:30 | disposition home health service (06) | DRG 623 ==
LOC: ED 14:03 → MS3 16:21
PROVIDERS: Anesthesiology; Podiatrist; Admitting Provider Hospitalist; Emergency Provider Emergency Medicine; Family Provider Family Medicine; PCP Family Medicine; Referring Provider Hospitalist; Visit Provider Student in an Organized Health Care Education/Training Program
PROC: 0QBM0ZX Excision of Left Tarsal, Open Approach, Diagnostic (ICD-10-PCS; principal; 2018-12-11 14:45)
DX: E11.69 Type 2 diabetes mellitus with other specified complication (principal); M86.8X7 Other osteomyelitis, ankle and foot; E44.0 Moderate protein-calorie malnutrition; L03.116 Cellulitis of left lower limb; L97.422 Non-pressure chronic ulcer of left heel and midfoot with fat layer exposed; B96.20 Unspecified Escherichia coli [E. coli] as the cause of diseases classified elsewhere; E11.621 Type 2 diabetes mellitus with foot ulcer; B95.61 Methicillin susceptible Staphylococcus aureus infection as the cause of diseases classified elsewhere; E11.51 Type 2 diabetes mellitus with diabetic peripheral angiopathy without gangrene; E11.42 Type 2 diabetes mellitus with diabetic polyneuropathy; E78.5 Hyperlipidemia, unspecified; F12.90 Cannabis use, unspecified, uncomplicated; I10 Essential (primary) hypertension; E66.9 Obesity, unspecified; F10.20 Alcohol dependence, uncomplicated; E11.65 Type 2 diabetes mellitus with hyperglycemia; Z79.84 Long term (current) use of oral hypoglycemic drugs; Z68.28 Body mass index [BMI] 28.0-28.9, adult; Z87.891 Personal history of nicotine dependence; R26.2 Difficulty in walking, not elsewhere classified
CPT/HCPCS: 11042; 36415; 73600; 73630; 73718; 76000; 80048; 80076; 80202; 80307; 80320; 81001; 82962; 83036; 85025; 85610; 85652; 85730; 86140; 87015; 87040; 87070; 87075; 87077; 87102; 87116; 87186; 87205; 87206; 87640; 88304; 88311; 93005; 97110; 97162; 97166; 97530; 97802; 99285; J7030; J7040; J7050; A4216; G0480; J0744

== ENCOUNTER 2018-12-23 09:00 | Outpatient (RCR) | payer MEDICARE, SELFPAY ==
[2018-11-25 01:48] VITALS: BP 177/76; PULSE 81; RESP 16; TEMP 36.2
[2018-11-25 14:03] VITALS: BP 142/84; PULSE 90; RESP 18; TEMP 36.6; BMI 29.8
--- NOTE | 2018-11-25 16:00 | PN.PCM_ITS ---
(1) Chronic ulcer of left foot with fat layer exposed Status: Chronic Current Visit: Yes Code(s): L97.522 - Non-pressure chronic ulcer of other part of left foot with fat layer exposed (2) Type 2 diabetes mellitus with diabetic polyneuropathy Status: Chronic Current Visit: Yes Code(s): E11.42 - Type 2 diabetes mellitus with diabetic polyneuropathy (3) Achilles rupture, left Status: Chronic Current Visit: Yes Code(s): S86.012A - Strain of left Achilles tendon, initial encounter (4) Delayed wound healing Status: Chronic Current Visit: Yes Code(s): T14.8XXD - Other injury of unspecified body region, subsequent encounter (5) Malnutrition Status: Chronic Current Visit: Yes Code(s): E46 - Unspecified protein- calorie malnutrition (6) Walking difficulty due to ankle and foot Status: Chronic Current Visit: Yes Code(s): R26.2 - Difficulty in walking, not elsewhere classified (7) Peripheral vascular disease Status: Chronic Current Visit: Yes Code(s): I73.9 - Peripheral vascular disease, unspecified Type of Wound Date of Service: 11/25/18 Chief Complaint: Left heel ulcer History of Wound: This 73-year-old male with multiple comorbidities is seen today for left plantar heel ulcer. He is concurrently being treated for a neglected left Achilles tendon rupture with CAM Walker immobilization and heel lift. He is walking today left lower extremity with the cam walker. He is with his today. He denies fever, chill, nausea, vomiting. He did have previous claudication symptoms. He is still trying to get a follow-up visit with vascular surgery and has now scheduled an appointment with Dr. Beck on 12/16/18. Progress of Wound: stable delayed healing - Physical Exam Vital Signs Temp Pulse Resp BP 98 F 90 18 142/84 H 11/25/18 14:03 11/25/18 14:03 11/25/18 14:03 11/25/18 14:03 General: Alert, Oriented x3, Cooperative HEENT: Atraumatic Extremities: No clubbing, Capillary Refill Less than 3 Seconds, No Calf Tenderness - Negative Irwin left, Diminished Peripheral Pulses, Edema, - - Palpable Mundelein is still noted to the posterior left watershed Achilles. No pain with also manipulation. Compartment soft Skin: Ulcer/ Wound - No purulence, erythema, streaking, odor, infection, necrosis, eschar noted today. The peripheral skin is hairless and atrophic. Wound Measurements and Assessment - Nurse 1 - General Ulcer Measurement Start: 11/25/18 14:02 Freq: Status: Active Protocol: Activity Type Activity Date Activity User E-Sign Co-Sign Detail Recorded Client Recorded Date Recorded By Document 11/25/18 14:03 [facility] [id number] 11/25/18 14:11 [facility] 11/25/18 14:03 Wound Center Nurse 1 [Ulcer Assessment] #1 Left Heel -Combined with other wound No -Current Size (cm) - Length 2.2 -Current Size (cm) - Width 3.9 -Current Size (cm) - Depth 0.3 -Total Square Cm 8.58 -Photo Taken No -Epithelialization None Present -Tunneling No -Undermining/Tunneling No -Circular Undermining No -Exudate Amt Medium -Exudate Type Serosanguineous -Wound Margin Distinct, Outline Attached -Granulation Amt Small (1-33%) -Granulation Quality Red -Slough/Fibrin Yes -Necrosis Amt Large (67-100%) -Necrotic Tissue Type Adherent Slough -Texture (Emily-wound Skin Appearance) Assessed Callus Scarring -Moisture (Emily-wound Skin Appearance Assessed ) Dry/Scaly -Color (Emily-wound Skin Appearance) Assessed Erythema -Temperature (Emily-wound Skin No Abnormality Appearance) (Pt Warm) -Tenderness on Palpation (Emily-wound No Skin Appearance) -Ulcer Cleansing Rinsed/ Irrigated with Saline -Foul Odor after Cleansing No -Anesthetic Used 5% Lidocaine Gel - Nurse 2 - General Ulcer CM Notes Start: 11/25/18 14:02 Freq: Status: Active Protocol: Activity Type Activity Date Activity User E-Sign Co-Sign Detail Recorded Client Recorded Date Recorded By Document 11/25/18 15:05 AN [id number] 11/25/18 15:06 AN 11/25/18 15:05 Wound Center Nurse 2 [Procedure/Treatment] -Time 15:05 -Correct Patient Yes -Correct Side, Site, Position Yes -Correct Procedure Yes -Procedure Performed Yes -Type of Procedure Debridement -Clinical Debridement Subcutaneous -Post Debridement Size (cm) - Length 2.3 -Post Debridement Size (cm) - Width 4.0 -Post Debridement Size (cm) - Depth 0.3 -Total Square Cm 9.20 -Wound/Ulcer Outcome Not Healed -Ulcer Cleansing Rinsed/ Irrigated with Saline -Foul Odor after Cleansing No -Bioengineered Tissue No -Bleeding Controlled with Pressure -Offloading Yes -Type of Offloading Camwalker -Treatment Response Procedure Tolerated Well [See Physician Procedure note for Specifics] Pain Scale: 0-10 Numeric [Pain] -Is Patient Pain Free? Yes Musculoskeletal: No Tenderness to Palpation of Joints or Extremities, Muscle Wasting, - - plantarflexion and dorsiflexion of the left ankle; 4- / 5 Neurological: - - Lack of normal epicritic sensation light touch consistent with neuropathy left lower extremity Psych/Mental Status: Normal Affect, Appropriate Debridement Note Post-Debridement Measurements/Treatment WC - Nurse 2 - General Ulcer CM Notes Start: 11/25/18 14:02 Freq: Status: Active Protocol: Activity Type Activity Date Activity User E-Sign Co-Sign Detail Recorded Client Recorded Date Recorded By Document 11/25/18 15:05 AN [id number] 11/25/18 15:06 AN 11/25/18 15:05 Wound Center Nurse 2 #1 Left Heel -Time 15:05 -Correct Patient Yes -Correct Side, Site, Position Yes -Correct Procedure Yes -Procedure Performed Yes -Type of Procedure Debridement -Clinical Debridement Subcutaneous -Post Debridement Size (cm) - Length 2.3 -Post Debridement Size (cm) - Width 4.0 -Post Debridement Size (cm) - Depth 0.3 -Total Square Cm 9.20 -Wound/Ulcer Outcome Not Healed -Ulcer Cleansing Rinsed/ Irrigated with Saline -Foul Odor after Cleansing No -Bioengineered Tissue No -Bleeding Controlled with Pressure -Offloading Yes -Type of Offloading Camwalker -Treatment Response Procedure Tolerated Well Pain Scale: 0-10 Numeric Is Patient Pain Free? Yes Wound debrided: plantar heel Laterality: Left Wound Grade/Stage: grade 1 Type of Debridement: Excisional debridement Anesthesia Used: 5% Lidocaine Gel Depth: in the subcutaneous layer Percentage of wound debrided: 100 Instrument Used: #15 blade, Forceps Tissue Removed: fibrous, devitalized subcutaneous, biofilm, slough Severity: Fat Layer Exposed Amount of bleeding with debridement: Mild Bleeding Controlled with: Pressure Patient tolerated procedure well Assessment/Plan Active Problems Chronic ulcer of left foot with fat layer exposed (Chronic) Type 2 diabetes mellitus with diabetic polyneuropathy (Chronic) Achilles rupture, left (Chronic) Delayed wound healing (Chronic) Malnutrition (Chronic) Walking difficulty due to ankle and foot (Chronic) Peripheral vascular disease (Chronic) Assessment: Left heel ulcer with fat layer exposed, no infection. Left Achilles tendon rupture. Peripheral vascular disease. Diabetes with neuropathy. Malnutrition. Other comorbidities. Walking difficulty Plan: I reviewed and discussed his case. Debridement was performed as noted in the clinical panel. To continue strict offloading by wearing a Cam walking boot and using a knee roller, crutches, a walker to keep weight off of the site. A new prescription for a knee roller provided again today and his will try to get him set up with this device. Compliance was discussed and it is noted he is walking full weightbearing on this ulcer site today. He understands this will significantly impair his healing process and he is at risk for limb loss. He change dressing daily with the recommended wound product; santyl. Transition into other wound healing products will be considered as the ulcer changes and progresses. I do recommend application of advanced wound healing product to optimize healing. Prior authorization for epi cord and epi fix will be started today. This is medically necessary for limb salvage. The indications, purpose, anticipated healing time and management application and outcomes were discussed in detail. I answered all his questions and he elects to proceed. It is noted his CAM Walker does have heel lifts in place to keep his foot in a slightly plantarflexed position to allow Achilles tendon rupture healing. He was reassured no local signs of infection are noted and advised him to monitor this. His neighbor will also help with this. It is noted his noninvasive vascular studies were abnormal again and he has had previous lower extremity ulcers with significant delayed healing. To follow-up as scheduled with Dr. Beck on December 16, 2018. To continue with proper diet to control medical health and ulcer h mirtha. He was unable to afford the Yayo and will take Ensure 1-2 times daily as a supplement. His x-ray was previously reviewed at the [facility] without any fractures, soft tissue emphysema, foreign body, or dislocations or Charcot. Lab work will also be updated; CBC, CMP, and prealbumin. To return to the wound healing center in 1 week or call sooner if he has any questions or co ncerns. I answered all of his questions.
[2018-12-02 14:50] VITALS: BP 165/93; PULSE 92; RESP 16; TEMP 36.4; BMI 29.8
--- NOTE | 2018-12-02 17:13 | PN.PCM_ITS ---
(1) Chronic ulcer of left foot with fat layer exposed Status: Chronic Current Visit: Yes Code(s): L97.522 - Non-pressure chronic ulcer of other part of left foot with fat layer exposed (2) Type 2 diabetes mellitus with diabetic polyneuropathy Status: Chronic Current Visit: Yes Code(s): E11.42 - Type 2 diabetes mellitus with diabetic polyneuropathy (3) Achilles rupture, left Status: Chronic Current Visit: Yes Code(s): S86.012A - Strain of left Achilles tendon, initial encounter (4) Delayed wound healing Status: Chronic Current Visit: Yes Code(s): T14.8XXD - Other injury of unspecified body region, subsequent encounter (5) Malnutrition Status: Chronic Current Visit: Yes Code(s): E46 - Unspecified protein- calorie malnutrition (6) Walking difficulty due to ankle and foot Status: Chronic Current Visit: Yes Code(s): R26.2 - Difficulty in walking, not elsewhere classified (7) Peripheral vascular disease Status: Chronic Current Visit: Yes Code(s): I73.9 - Peripheral vascular disease, unspecified Type of Wound Date of Service: 12/02/18 Chief Complaint: Left heel ulcer History of Wound: This 73-year-old male with multiple comorbidities is seen today for left plantar heel ulcer. He is concurrently being treated for a neglected left Achilles tendon rupture with CAM Walker immobilization and heel lift. He is walking again today left lower extremity with the cam walker. He is with his brother today. He denies fever, chill, nausea, vomiting. He did have previous claudication symptoms. He is still trying to get a follow-up visit with vascular surgery and has now scheduled an appointment with Dr. Beck on 12/16/18. Progress of Wound: stable delayed healing - Physical Exam Vital Signs Temp Pulse Resp BP 97.5 F L 92 16 165/93 H 12/02/18 14:50 12/02/18 14:50 12/02/18 14:50 12/02/18 14:50 General: Alert, Oriented x3, Cooperative Extremities: No cyanosis, Capillary Refill Less than 3 Seconds, No Calf Tenderness - Negative Abhishek and Irwin sign. No bogginess or fluctuance around the ulcer site, Diminished Peripheral Pulses, Edema - Mild Skin: Ulcer/ Wound - No purulence, erythema, eschar, streaking, odor, infection, maceration. Peripheral skin is hairless and atrophic. Wound Measurements and Assessment WC - Nurse 1 - General Ulcer Measurement Start: 11/25/18 14:02 Freq: Status: Active Protocol: Activity Type Activity Date Activity User E-Sign Co-Sign Detail Recorded Client Recorded Date Recorded By Document 12/02/18 14:50 BMF [id number] 12/02/18 14:59 BMF 12/02/18 14:50 Wound Center Nurse 1 [Ulcer Assessment] #1 Left Heel -Combined with other wound No -Current Size (cm) - Length 2.2 -Current Size (cm) - Width 4.1 -Current Size (cm) - Depth 0.5 -Total Square Cm 9.02 -Photo Taken No -Epithelialization None Present -Tunneling No -Undermining/Tunneling Yes -Undermining/Tunneling Starts (O' 2 clock) -Undermining/Tunneling Ends (O'clock) 5 -Maximum Distance (cm) 0.6 -Circular Undermining No -Exudate Amt Large -Exudate Type Purulent -Wound Margin Distinct, Outline Attached -Granulation Amt Small (1-33%) -Granulation Quality Red -Slough/Fibrin Yes -Necrosis Amt Large (67-100%) -Necrotic Tissue Type Adherent Slough -Texture (Emily-wound Skin Appearance) Callus Scarring -Moisture (Emily-wound Skin Appearance Assessed ) Maceration Dry/Scaly -Color (Emily-wound Skin Appearance) Assessed Erythema Palor -Temperature (Emily-wound Skin No Abnormality Appearance) (Pt Warm) -Tenderness on Palpation (Emily-wound Yes Skin Appearance) -Ulcer Cleansing Wound Cleanser -Foul Odor after Cleansing No -Anesthetic Used 5% Lidocaine Gel - Nurse 2 - General Ulcer CM Notes Start: 11/25/18 14:02 Freq: Status: Active Protocol: Activity Type Activity Date Activity User E-Sign Co-Sign Detail Recorded Client Recorded Date Recorded By Document 12/02/18 15:39 AN [id number] 12/02/18 15:47 AN 12/02/18 15:39 Wound Center Nurse 2 [Procedure/Treatment] -Time 15:40 -Correct Patient Yes -Correct Side, Site, Position Yes -Correct Procedure Yes -Procedure Performed Yes -Type of Procedure Debridement -Clinical Debridement Subcutaneous -Post Debridement Size (cm) - Length 2.2 -Post Debridement Size (cm) - Width 4.1 -Post Debridement Size (cm) - Depth 0.5 -Total Square Cm 9.02 -Wound/Ulcer Outcome Not Healed -Ulcer Cleansing Rinsed/ Irrigated with Saline -Foul Odor after Cleansing No -Bioengineered Tissue Yes -Type of bioengineered Tissue EPIFIX -Expiration Date 03/28/23 -Product Lot Number [id number] -Percent Used 100 -Saline Lot Number [id number] -Topical Lidocaine (%) 4 -Bleeding Controlled with Pressure -Offloading Yes -Type of Offloading Camwalker -Treatment Response Procedure Tolerated Well [See Physician Procedure note for Specifics] Pain Scale: 0-10 Numeric [Pain] -Is Patient Pain Free? Yes Musculoskeletal: No Tenderness to Palpation of Joints or Extremities, Muscle Wasting, - - The Achilles Del is no longer palpable. The Achilles plantarflexion strength is weak and Neurological: - - Lack of normal epicritic sensation light touch consistent with neuropathy Psych/Mental Status: Normal Affect, Appropriate Debridement Note Post-Debridement Measurements/Treatment WC - Nurse 2 - General Ulcer CM Notes Start: 11/25/18 14:02 Freq: Status: Active Protocol: Activity Type Activity Date Activity User E-Sign Co-Sign Detail Recorded Client Recorded Date Recorded By Document 11/25/18 15:05 AN [id number] 11/25/18 15:06 AN Document 12/02/18 15:39 AN [id number] 12/02/18 15:47 AN 11/25/18 12/02/18 15:05 15:39 Wound Center Nurse 2 #1 Left Heel -Time 15:05 15:40 -Correct Patient Yes Yes -Correct Side, Site, Position Yes Yes -Correct Procedure Yes Yes -Procedure Performed Yes Yes -Type of Procedure Debridement Debridement -Clinical Debridement Subcutaneous Subcutaneous -Post Debridement Size (cm) - Length 2.3 2.2 -Post Debridement Size (cm) - Width 4.0 4.1 -Post Debridement Size (cm) - Depth 0.3 0.5 -Total Square Cm 9.20 9.02 -Wound/Ulcer Outcome Not Healed Not Healed -Ulcer Cleansing Rinsed/ Rinsed/ Irrigated with Irrigated with Saline Saline -Foul Odor after Cleansing No No -Bioengineered Tissue No Yes -Type of bioengineered Tissue EPIFIX -Expiration Date 03/28/23 -Product Lot Number [id number] -Percent Used 100 -Saline Lot Number [id number] -Topical Lidocaine (%) 4 -Bleeding Controlled with Pressure Pressure -Offloading Yes Yes -Type of Offloading Camwalker Camwalker -Treatment Response Procedure Procedure Tolerated Well Tolerated Well Pain Scale: 0-10 Numeric Is Patient Pain Free? Yes Yes Wound debrided: plantar heel Laterality: Left Wound Grade/Stage: grade 1 Type of Debridement: Excisional debridement Anesthesia Used: 5% Lidocaine Gel Depth: in the subcutaneous layer Percentage of wound debrided: 100 Instrument Used: #15 blade Tissue Removed: fibrous, devitalized subcutaneous, biofilm, slough Severity: Fat Layer Exposed Amount of bleeding with debridement: Mild Bleeding Controlled with: Pressure Patient tolerated procedure well Assessment/Plan Active Problems Chronic ulcer of left foot with fat layer exposed (Chronic) Type 2 diabetes mellitus with diabetic polyneuropathy (Chronic) Achilles rupture, left (Chronic) Delayed wound healing (Chronic) Malnutrition (Chronic) Walking difficulty due to ankle and foot (Chronic) Peripheral vascular disease (Chronic) Assessment: Left heel ulcer with fat layer exposed, no infection. Left Achilles tendon rupture. Peripheral vascular disease. Diabetes with neuropathy. Malnutrition. Other comorbidities. Walking difficulty Plan: I reviewed and discussed his case. Debridement was performed as noted in the clinical panel. To continue strict offloading by wearing a Cam walking boot and using a knee roller, crutches, a walker to keep weight off of the site. Compliance was discussed and it is noted he is walking full weightbearing on this ulcer site today. He understands this will significantly impair his healing process and he is at risk for limb loss. He was approved for advanced wound healing product, epi fix. The indications were discussed and he is amenable to proceed today. This was applied according to standard protocol and secured with a wound veil and Steri-Strips. To keep clean dry and intact until follow-up next week. This is medically necessary for limb salvage. It is noted his CAM Walker does have heel lifts in place to keep his foot in a slightly plantarflexed position to allow Achilles tendon rupture healing. He was reassured no local signs of infection are noted and advised him to monitor this. His neighbor will also help with this. It is noted his noninvasive vascular studies were abnormal again and he has had previous lower extremity ulcers with significant delayed healing. To follow-up as scheduled with Dr. Beck on December 16, 2018. To continue with proper diet to control medical health and ulcer healing. He was unable to afford the Yayo and will take Ensure 1-2 times daily as a supplement. His x-ray was previously reviewed at the foot and ankle Center without any fractures, soft tissue emphysema, foreign body, or dislocations or Charcot. Lab work will also be updated; CBC, CMP, and prealbumin. To return to the wound healing center in 1 week or call sooner if he has any questions or concerns. I answered all of his questions.
[2018-12-09 12:07] VITALS: BP 139/80; PULSE 92; RESP 18; TEMP 36.2; BMI 29.8
--- NOTE | 2018-12-09 13:32 | PN.PCM_ITS ---
(1) Chronic ulcer of left foot with fat layer exposed Status: Chronic Current Visit: Yes Code(s): L97.522 - Non-pressure chronic ulcer of other part of left foot with fat layer exposed (2) Type 2 diabetes mellitus with diabetic polyneuropathy Status: Chronic Current Visit: Yes Code(s): E11.42 - Type 2 diabetes mellitus with diabetic polyneuropathy (3) Achilles rupture, left Status: Chronic Current Visit: Yes Code(s): S86.012A - Strain of left Achilles tendon, initial encounter (4) Delayed wound healing Status: Chronic Current Visit: Yes Code(s): T14.8XXD - Other injury of unspecified body region, subsequent encounter (5) Malnutrition Status: Chronic Current Visit: Yes Code(s): E46 - Unspecified protein- calorie malnutrition (6) Walking difficulty due to ankle and foot Status: Deleted Current Visit: Yes Code(s): R26.2 - Difficulty in walking, not elsewhere classified (7) Peripheral vascular disease Status: Chronic Current Visit: Yes Code(s): I73.9 - Peripheral vascular disease, unspecified (8) Cellulitis of left foot Status: Deleted Current Visit: Yes Code(s): L03.116 - Cellulitis of left lower limb (9) Osteomyelitis Status: Suspected Current Visit: Yes Qualifiers: Osteomyelitis type: other acute Osteomyelitis location: foot Laterality: left Qualified Code(s): M86.172 - Other acute osteomyelitis, left ankle and foot Code(s): M86.9 - Osteomyelitis, unspecified Type of Wound Date of Service: 12/09/18 Chief Complaint: Left heel ulcer History of Wound: This 73-year-old male with multiple comorbidities is seen today for left plantar heel ulcer. He is concurrently being treated for a neglected left Achilles tendon rupture with CAM Walker immobilization and heel lift. He relates significant increase in drainage odor and redness that his brother has visualized the past 2 days. He is experiencing fatigue. He is with his brother today. He has an he denies fever, chill, nausea, vomiting. He did have previous claudication symptoms. He has an appointment with Dr. Beck on 12/16/18. Progress of Wound: stable delayed healing - Physical Exam Vital Signs Temp Pulse Resp BP 97.2 F L 92 18 139/80 H 12/09/18 12:07 12/09/18 12:07 12/09/18 12:07 12/09/18 12:07 General: Alert, Oriented x3, Cooperative HEENT: Atraumatic Extremities: No cyanosis, Capillary Refill Less than 3 Seconds, No Calf Tenderness - Negative Abhishek and Irwin sign left lower extremity, Diminished Peripheral Pulses, Edema - Mild to moderate left lower extremity Skin: Ulcer/ Wound - Erythema extends approximately 6 cm proximal to plantar medial heel ulcer site distal to the medial malleolus. There is a fibronecrotic plug with new skin discontinuity to the medial heel which does probe to deep muscle tendon. There is fibrinous and purulent drainage at this site that is not copious in nature. There is also deterioration of the plantar heel ulcer site with fat exposed and probe to fascial layer and to periosteum. There is undermining of this ulcer site as well. There is no deep eschar. There is an odor. The peripheral skin is very hairless and atrophic. The indy-ulcer compartments remain soft and there is no additional fluctuance or bogginess or palpated abscess of the left lower extremity Wound Measurements and Assessment WC - Nurse 1 - General Ulcer Measurement Start: 11/25/18 14:02 Freq: Status: Active Protocol: Activity Type Activity Date Activity User E-Sign Co-Sign Detail Recorded Client Recorded Date Recorded By Document 12/09/18 12:07 DL [id number] 12/09/18 12:22 DL 12/09/18 12:07 Wound Center Nurse 1 [Ulcer Assessment] #2 L Med Heel -Current Size (cm) - Length 2.1 -Current Size (cm) - Width 1.4 -Current Size (cm) - Depth 1 -Total Square Cm 2.94 -Photo Taken Yes -Exudate Amt Large -Exudate Type Serosanguineous -Wound Margin Distinct, Outline Attached -Granulation Amt None Present (0 %) -Necrosis Amt Large (67-100%) -Necrotic Tissue Type Adherent Slough -Structure Exposed N/A -Texture (Indy-wound Skin Appearance) Localized Edema Scarring -Moisture (Indy-wound Skin Appearance Maceration ) Weeping -Color (Indy-wound Skin Appearance) Erythema -Temperature (Indy-wound Skin No Abnormality Appearance) (Pt Warm) -Tenderness on Palpation (Indy-wound No Skin Appearance) -Ulcer Cleansing Wound Cleanser -Foul Odor after Cleansing No -Anesthetic Used 4% Lidocaine Solution #1 Left Heel -Current Size (cm) - Length 2.5 -Current Size (cm) - Width 3.6 -Current Size (cm) - Depth 1.2 -Total Square Cm 9.00 -Photo Taken No -Exudate Amt Large -Exudate Type Serosanguineous -Wound Margin Thickened -Granulation Amt None Present (0 %) -Necrosis Amt Large (67-100%) -Necrotic Tissue Type Adherent Slough -Structure Exposed N/A -Texture (Indy-wound Skin Appearance) Localized Edema -Moisture (Indy-wound Skin Appearance Maceration ) Weeping -Color (Indy-wound Skin Appearance) Erythema -Temperature (Indy-wound Skin No Abnormality Appearance) (Pt Warm) -Tenderness on Palpation (Indy-wound No Skin Appearance) -Ulcer Cleansing Wound Cleanser -Anesthetic Used 4% Lidocaine Solution WC - Nurse 2 - General Ulcer CM Notes Start: 11/25/18 14:02 Freq: Status: Active Protocol: Activity Type Activity Date Activity User E-Sign Co-Sign Detail Recorded Client Recorded Date Recorded By Document 12/09/18 12:37 DL [id number] 12/09/18 12:46 DL 12/09/18 12:37 Wound Center Nurse 2 [Procedure/Treatment] #2 L Med Heel -Time 12:41 -Correct Patient Yes -Correct Side, Site, Position Yes -Correct Procedure Yes -Procedure Performed Yes -Type of Procedure Debridement -Clinical Debridement Subcutaneous -Post Debridement Size (cm) - Length 2.2 -Post Debridement Size (cm) - Width 1.5 -Post Debridement Size (cm) - Depth 1 -Total Square Cm 3.30 -Wound/Ulcer Outcome Not Healed -Ulcer Cleansing Rinsed/ Irrigated with Saline -Foul Odor after Cleansing Yes -Bioengineered Tissue No -Bleeding Controlled with Pressure -Offloading Yes -Type of Offloading Camwalker #1 Left Heel -Time 12:42 -Correct Patient Yes -Correct Side, Site, Position Yes -Correct Procedure Yes -Procedure Performed Yes -Type of Procedure Debridement -Clinical Debridement Subcutaneous -Post Debridement Size (cm) - Length 2.7 -Post Debridement Size (cm) - Width 3.7 -Post Debridement Size (cm) - Depth 1.3 -Total Square Cm 9.99 -Wound/Ulcer Outcome Not Healed -Ulcer Cleansing Rinsed/ Irrigated with Saline -Foul Odor after Cleansing Yes -Bioengineered Tissue No -Bleeding Controlled with Pressure -Offloading Yes -Type of Offloading Camwalker -Treatment Response Procedure Tolerated Well [See Physician Procedure note for Specifics] Pain Scale: 0-10 Numeric [Pain] -Is Patient Pain Free? Yes Musculoskeletal: No Tenderness to Palpation of Joints or Extremities, Muscle Wasting, - - Active range of motion toes x5 left foot. Neurological: - - lack of normal epicritic sensation via light touch consistent with neuropathy to left foot Psych/Mental Status: Normal Affect, Appropriate Debridement Note Post-Debridement Measurements/Treatment WC - Nurse 2 - General Ulcer CM Notes Start: 11/25/18 14:02 Freq: Status: Active Protocol: Activity Type Activity Date Activity User E-Sign Co-Sign Detail Recorded Client Recorded Date Recorded By Document 11/25/18 15:05 AN [id number] 11/25/18 15:06 AN Document 12/02/18 15:39 AN [id number] 12/02/18 15:47 AN Document 12/09/18 12:37 DL [id number] 12/09/18 12:46 DL 11/25/18 12/02/18 12/09/18 15:05 15:39 12:37 Wound Center Nurse 2 #2 L Med Heel -Time 12:41 -Correct Patient Yes -Correct Side, Site, Position Yes -Correct Procedure Yes -Procedure Performed Yes -Type of Procedure Debridement -Clinical Debridement Subcutaneous -Post Debridement Size (cm) - Length 2.2 -Post Debridement Size (cm) - Width 1.5 -Post Debridement Size (cm) - Depth 1 -Total Square Cm 3.30 -Wound/Ulcer Outcome Not Healed -Ulcer Cleansing Rinsed/ Irrigated with Saline -Foul Odor after Cleansing Yes -Bioengineered Tissue No -Bleeding Controlled with Pressure -Offloading Yes -Type of Offloading Camwalker #1 Left Heel -Time 15:05 15:40 12:42 -Correct Patient Yes Yes Yes -Correct Side, Site, Position Yes Yes Yes -Correct Procedure Yes Yes Yes -Procedure Performed Yes Yes Yes -Type of Procedure Debridement Debridement Debridement -Clinical Debridement Subcutaneous Subcutaneous Subcutaneous -Post Debridement Size (cm) - Length 2.3 2.2 2.7 -Post Debridement Size (cm) - Width 4.0 4.1 3.7 -Post Debridement Size (cm) - Depth 0.3 0.5 1.3 -Total Square Cm 9.20 9.02 9.99 -Wound/Ulcer Outcome Not Healed Not Healed Not Healed -Ulcer Cleansing Rinsed/ Rinsed/ Rinsed/ Irrigated with Irrigated with Irrigated with Saline Saline Saline -Foul Odor after Cleansing No No Yes -Bioengineered Tissue No Yes No -Type of bioengineered Tissue EPIFIX -Expiration Date 03/28/23 -Product Lot Number [id number] -Percent Used 100 -Saline Lot Number 11373 -Topical Lidocaine (%) 4 -Bleeding Controlled with Pressure Pressure Pressure -Offloading Yes Yes Yes -Type of Offloading Camwalker Camwalker Camwalker -Treatment Response Procedure Procedure Procedure Tolerated Well Tolerated Well Tolerated Well Pain Scale: 0-10 Numeric Is Patient Pain Free? Yes Yes Yes Wound debrided: plantar heel Laterality: Left - g Wound Grade/Stage: grade 3 Type of Debridement: Excisional debridement Anesthesia Used: 5% Lidocaine Gel Depth: in the subcutaneous layer Percentage of wound debrided: 100 Instrument Used: #15 blade Tissue Removed: fibrous, devitalized subcutaneous, biofilm, slough Severity: Fat Layer Exposed Amount of bleeding with debridement: Mild Bleeding Controlled with: Pressure Patient tolerated procedure well - Additional Wound Wound debrided: medial heel Laterality: Left Wound Grade/Stage: grade 3 Type of Debridement: Excisional debridement Anesthesia Used: 5% Lidocaine Gel Depth: in the subcutaneous layer Percentage of wound debrided: 100 Instrument Used: #15 blade Tissue Removed: fibrous, devitalized subcutaneous, biofilm, slough Severity: Fat Layer Exposed Amount of bleeding with debridement: Mild Bleeding Controlled with: Pressure Patient tolerated procedure: Patient tolerated procedure well Assessment/Plan Active Problems Chronic ulcer of left foot with fat layer exposed (Chronic) Type 2 diabetes mellitus with diabetic polyneuropathy (Chronic) Achilles rupture, left (Chronic) Delayed wound healing (Chronic) Malnutrition (Chronic) Peripheral vascular disease (Chronic) Assessment: Left heel ulcer with fat layer exposed, no infection. Left Achilles tendon rupture. Peripheral vascular disease. Diabetes with neuropathy. Malnutrition. Other comorbidities. Walking difficulty Plan: I reviewed and discussed his case. Debridement was performed as noted in the clinical panel. After debridement and saline irrigation deep wound cultures were obtained and sent for aerobic, anaerobic, acid-fast, fungal, MRSA PCR. This is a significant status change and he has erythema extending distal to the medial malleolus with fibronecrotic purulent drainage coming from the medial ulcer site and no deeper probing through muscle fascia into the periosteum layer of the plantar calcaneus. There is concern for osteomyelitis. His care is significantly compromised with his diabetic status as well as his peripheral vascular disease. I recommend hospitalization for IV antibiotics, infectious disease consultation, and further osteomyelitis work-up. Pending MRI results and clinical improvement with saline and Betadine wet-to-dry dressings, surgical intervention will be considered. This is considered at least a moderate level diabetic foot infection. He understands he is at risk for serious systemic illness and limb loss due to this condition combined with his comorbidities. To continue strict offloading by wearing a Cam walking boot and using a knee roller, crutches, a walker to keep weight off of the site. Compliance was discussed and it is noted he is walking full weightbearing on this ulcer site today. He understands this will significantly impair his healing process and he is at risk for limb loss. It is noted his noninvasive vascular studies were a bnormal again and he has had previous lower extremity ulcers with significant delayed healing. To follow-up as scheduled with Dr. Beck on December 16, 2018. To continue with proper diet to control medical health and ulcer healing. He was unable to afford the Yayo and will take Ensure 1-2 times daily as a supplement. His x-ray was previously reviewed at the foot and ankle Center without any fractures, soft tissue emphysema, foreign body, or dislocations or Charcot. Updated foot x-rays were ordered at this time to look for any infection progression or acute trauma. I also recommend MRI for further work-up of deep space infection and osteomyelitis given the depth of his ulcer site and rapid status change. Lab work will also be updated today as well given his status change: CBC, CMP, ESR, C-reactive protein, and hemoglobin A1c. To return to the wound healing center in 1 week or call sooner if he has any questions or concerns. I answered all of his questions.
[2018-12-09 16:29] LABS: M R Staph aureus DNA By PCR Negative (Negative); Probe Check PASS; Specimen Processing Control PASS; Staph aureus DNA By PCR POSITIVE (Negative)
[2018-12-16 11:05] VITALS: BP 131/60; PULSE 89; RESP 18; TEMP 36.6; BMI 29.8
--- NOTE | 2018-12-16 12:47 | PCM.WC.PN ---
(1) Chronic ulcer of left foot with fat layer exposed Status: Chronic Current Visit: Yes Code(s): L97.522 - Non-pressure chronic ulcer of other part of left foot with fat layer exposed (2) Type 2 diabetes mellitus with diabetic polyneuropathy Status: Chronic Current Visit: Yes Code(s): E11.42 - Type 2 diabetes mellitus with diabetic polyneuropathy (3) Achilles rupture, left Status: Chronic Current Visit: No Code(s): S86.012A - Strain of left Achilles tendon, initial encounter (4) Delayed wound healing Status: Chronic Current Visit: No Code(s): T14.8XXD - Other injury of unspecified body region, subsequent encounter (5) Malnutrition Status: Chronic Current Visit: No Code(s): E46 - Unspecified protein-calorie malnutrition (6) Walking difficulty due to ankle and foot Status: Deleted Current Visit: No Code(s): R26.2 - Difficulty in walking, not elsewhere classified (7) Peripheral vascular disease Status: Chronic Current Visit: No Code(s): I73.9 - Peripheral vascular disease, unspecified (8) Cellulitis of left foot Status: Deleted Current Visit: No Code(s): L03.116 - Cellulitis of left lower limb (9) Osteomyelitis Status: Suspected Current Visit: No Qualifiers: Osteomyelitis type: other acute Osteomyelitis location: foot Laterality: left Qualified Code(s): M86.172 - Other acute osteomyelitis, left ankle and foot Code(s): M86.9 - Osteomyelitis, unspecified Type of Wound Date of Service: 12/16/18 Chief Complaint: Left heel ulcer History of Wound: This 73-year-old male with multiple comorbidities is seen today for left plantar heel ulcer. He is concurrently being treated for a neglected left Achilles tendon rupture with CAM Walker immobilization and heel lift. He relates significant increase in drainage odor and redness that his brother has visualized the past 2 days. He is experiencing fatigue. He is with his brother today. He has an he denies fever, chill, nausea, vomiting. He did have previous claudication symptoms. He recently had a bursa jet debridement and bone biopsy performed with Dr. Griffin in the operating room this past week and was started on an extended IV antibiotic course for treatment of calcaneus osteomyelitis. He is doing much better and the redness and odor have resolved. He continues to remain nonweightbearing. He also saw Dr. Beck this morning who will review his noninvasive vascular studies and determine if an angiogram is indicated at this time. He is amenable to have home health helping with dressing care at home at this time. Progress of Wound: Improved stability - Physical Exam Vital Signs Temp Pulse Resp BP 97.8 F 89 18 131/60 H 12/16/18 11:05 12/16/18 11:05 12/16/18 11:05 12/16/18 11:05 General: Alert, Oriented x3, Cooperative, No apparent distress Extremities: No cyanosis, Capillary Refill Less than 3 Seconds, No Calf Tenderness - Negative pulmonary breath sounds bilateral, Diminished Peripheral Pulses, Edema Skin: Ulcer/ Wound - No purulence, erythema, streaking, odor, infection bilateral. Plantar heel and medial heel ulcer sites do not have any necrosis or streaking noted. The plantar heel does have exposed deep fascia and periosteum layer adjacent to the plantar calcaneus. Wound Measurements and Assessment WC - Nurse 1 - General Ulcer Measurement Start: 11/25/18 14:02 Freq: Status: Active Protocol: Activity Type Activity Date Activity User E-Sign Co-Sign Detail Recorded Client Recorded Date Recorded By Document 12/16/18 11:05 RB [id number] 12/16/18 11:09 RB 12/16/18 11:05 Wound Center Nurse 1 [Ulcer Assessment] #2 L Med Heel -Combined with other wound No -Current Size (cm) - Length 2.5 -Current Size (cm) - Width 1.2 -Current Size (cm) - Depth 0.6 -Total Square Cm 3.00 -Tunneling No -Undermining/Tunneling No -Circular Undermining No -Exudate Amt Small -Exudate Type Serosanguineous -Wound Margin Distinct, Outline Attached -Granulation Amt Medium (34-66%) -Granulation Quality [place] Red -Slough/Fibrin Yes -Necrosis Amt Medium (34-66%) -Necrotic Tissue Type Adherent Slough -Structure Exposed N/A -Texture (Emily-wound Skin Appearance) Assessed -Moisture (Emily-wound Skin Appearance Assessed ) -Color (Emily-wound Skin Appearance) Assessed -Temperature (Emily-wound Skin No Abnormality Appearance) (Pt Warm) -Tenderness on Palpation (Emily-wound No Skin Appearance) -Ulcer Cleansing Wound Cleanser -Foul Odor after Cleansing No -Anesthetic Used 4% Lidocaine Solution #1 Left Heel -Combined with other wound No -Current Size (cm) - Length 2 -Current Size (cm) - Width 3.1 -Current Size (cm) - Depth 1.5 -Total Square Cm 6.2 -Tunneling No -Undermining/Tunneling No -Circular Undermining No -Exudate Amt Medium -Exudate Type Serosanguineous -Wound Margin Distinct, Outline Attached -Granulation Amt Medium (34-66%) -Granulation Quality [place] Red -Slough/Fibrin Yes -Necrosis Amt Small (1-33%) -Necrotic Tissue Type Adherent Slough -Structure Exposed Tendon N/A -Texture (Emily-wound Skin Appearance) Assessed -Moisture (Emily-wound Skin Appearance Assessed ) -Color (Emily-wound Skin Appearance) Assessed -Temperature (Emily-wound Skin No Abnormality Appearance) (Pt Warm) -Tenderness on Palpation (Emily-wound No Skin Appearance) -Ulcer Cleansing Wound Cleanser -Foul Odor after Cleansing No -Anesthetic Used 4% Lidocaine Solution [Edema Assessment] -Lower Limb Edema Present Yes -Left Calf (cm) 34 -Left Ankle (cm) 23 WC - Nurse 2 - General Ulcer CM Notes Start: 11/25/18 14:02 Freq: Status: Active Protocol: Activity Type Activity Date Activity User E-Sign Co-Sign Detail Recorded Client Recorded Date Recorded By Document 12/16/18 11:45 AN [id number] 12/16/18 11:52 AN 12/16/18 11:45 Wound Center Nurse 2 [Procedure/Treatment] #2 L Med Heel -Time 11:49 -Correct Patient Yes -Correct Side, Site, Position Yes -Correct Procedure Yes -Procedure Performed Yes -Type of Procedure Debridement -Clinical Debridement Subcutaneous -Post Debridement Size (cm) - Length 2.6 -Post Debridement Size (cm) - Width 1.3 -Post Debridement Size (cm) - Depth 0.6 -Total Square Cm 3.38 -Wound/Ulcer Outcome Not Healed -Ulcer Cleansing Rinsed/ Irrigated with Saline -Foul Odor after Cleansing No -Bioengineered Tissue No #1 Left Heel -Time 11:51 -Correct Patient Yes -Correct Side, Site, Position Yes -Correct Procedure Yes -Procedure Performed Yes -Type of Procedure Debridement -Clinical Debridement Subcutaneous -Post Debridement Size (cm) - Length 2.1 -Post Debridement Size (cm) - Width 3.2 -Post Debridement Size (cm) - Depth 1.5 -Total Square Cm 6.72 -Wound/Ulcer Outcome Not Healed -Bleeding Controlled with Pressure -Type of Offloading Surgical Shoe -Treatment Response Procedure Tolerated Well [See Physician Procedure note for Specifics] Musculoskeletal: No Tenderness to Palpation of Joints or Extremities, Muscle Wasting Neurological: - - Lack of normal epicritic sensation light touch consistent with neuropathy Psych/Mental Status: Normal Affect, Appropriate Debridement Note Post-Debridement Measurements/Treatment WC - Nurse 2 - General Ulcer CM Notes Start: 11/25/18 14:02 Freq: Status: Active Protocol: Activity Type Activity Date Activity User E-Sign Co-Sign Detail Recorded Client Recorded Date Recorded By Document 11/25/18 15:05 AN [id number] 11/25/18 15:06 AN Document 12/02/18 15:39 AN [id number] 12/02/18 15:47 AN Document 12/09/18 12:37 DL [id number] 12/09/18 12:46 DL Document 12/16/18 11:45 AN [id number] 12/16/18 11:52 AN 11/25/18 12/02/18 12/09/18 15:05 15:39 12:37 Wound Center Nurse 2 #2 L Med Heel -Time 12:41 -Correct Patient Yes -Correct Side, Site, Position Yes -Correct Procedure Yes -Procedure Performed Yes -Type of Procedure Debridement -Clinical Debridement Subcutaneous -Post Debridement Size (cm) - Length 2.2 -Post Debridement Size (cm) - Width 1.5 -Post Debridement Size (cm) - Depth 1 -Total Square Cm 3.30 -Wound/Ulcer Outcome Not Healed -Ulcer Cleansing Rinsed/ Irrigated with Saline -Foul Odor after Cleansing Yes -Bioengineered Tissue No -Bleeding Controlled with Pressure -Offloading Yes -Type of Offloading Camwalker #1 Left Heel -Time 15:05 15:40 12:42 -Correct Patient Yes Yes Yes -Correct Side, Site, Position Yes Yes Yes -Correct Procedure Yes Yes Yes -Procedure Performed Yes Yes Yes -Type of Procedure Debridement Debridement Debridement -Clinical Debridement Subcutaneous Subcutaneous Subcutaneous -Post Debridement Size (cm) - Length 2.3 2.2 2.7 -Post Debridement Size (cm) - Width 4.0 4.1 3.7 -Post Debridement Size (cm) - Depth 0.3 0.5 1.3 -Total Square Cm 9.20 9.02 9.99 -Wound/Ulcer Outcome Not Healed Not Healed Not Healed -Ulcer Cleansing Rinsed/ Rinsed/ Rinsed/ Irrigated with Irrigated with Irrigated with Saline Saline Saline -Foul Odor after Cleansing No No Yes -Bioengineered Tissue No Yes No -Type of bioengineered Tissue EPIFIX -Expiration Date 03/28/23 -Product Lot Number [id number] -Percent Used 100 -Saline Lot Number 36049 -Topical Lidocaine (%) 4 -Bleeding Controlled with Pressure Pressure Pressure -Offloading Yes Yes Yes -Type of Offloading Camwalker Camwalker Camwalker -Treatment Response Procedure Procedure Procedure Tolerated Well Tolerated Well Tolerated Well Pain Scale: 0-10 Numeric Is Patient Pain Free? Yes Yes Yes 12/16/18 11:45 Wound Center Nurse 2 #2 L Med Heel -Time 11:49 -Correct Patient Yes -Correct Side, Site, Position Yes -Correct Procedure Yes -Procedure Performed Yes -Type of Procedure Debridement -Clinical Debridement Subcutaneous -Post Debridement Size (cm) - Length 2.6 -Post Debridement Size (cm) - Width 1.3 -Post Debridement Size (cm) - Depth 0.6 -Total Square Cm 3.38 -Wound/Ulcer Outcome Not Healed -Ulcer Cleansing Rinsed/ Irrigated with Saline -Foul Odor after Cleansing No -Bioengineered Tissue No -Bleeding Controlled with -Offloading -Type of Offloading #1 Left Heel -Time 11:51 -Correct Patient Yes -Correct Side, Site, Position Yes -Correct Procedure Yes -Procedure Performed Yes -Type of Procedure Debridement -Clinical Debridement Subcutaneous -Post Debridement Size (cm) - Length 2.1 -Post Debridement Size (cm) - Width 3.2 -Post Debridement Size (cm) - Depth 1.5 -Total Square Cm 6.72 -Wound/Ulcer Outcome Not Healed -Ulcer Cleansing -Foul Odor after Cleansing -Bioengineered Tissue -Type of bioengineered Tissue -Expiration Date -Product Lot Number -Percent Used -Saline Lot Number -Topical Lidocaine (%) -Bleeding Controlled with Pressure -Offloading -Type of Offloading Surgical Shoe -Treatment Response Procedure Tolerated Well Pain Scale: 0-10 Numeric Is Patient Pain Free? Wound debrided: plantar heel Laterality: Left Wound Grade/Stage: grade 3 Type of Debridement: Excisional debridement Anesthesia Used: 5% Lidocaine Gel Depth: in the subcutaneous layer Percentage of wound debrided: 100 Instrument Used: #15 blade Tissue Removed: fibrous, devitalized subcutaneous, biofilm, slough Severity: Fat Layer Exposed Amount of bleeding with debridement: Mild Bleeding Controlled with: Pressure Patient tolerated procedure well - Additional Wound Wound debrided: medial heel Laterality: Left Wound Grade/Stage: grade 2 Type of Debridement: Excisional debridement Anesthesia Used: 5% Lidocaine Gel Depth: in the subcutaneous layer Percentage of wound debrided: 100 Instrument Used: #15 blade Tissue Removed: fibrous, devitalized subcutaneous, biofilm, slough Severity: Fat Layer Exposed Bleeding Controlled with: Pressure Patient tolerated procedure: Patient tolerated procedure well Assessment/Plan Active Problems Chronic ulcer of left foot with fat layer exposed (Chronic) Type 2 diabetes mellitus with diabetic polyneuropathy (Chronic) Assessment: Left heel ulcer with fat layer exposed, no infection. Left Achilles tendon rupture improving. Peripheral vascular disease. Diabetes with neuropathy. Malnutrition. Other comorbidities. Walking difficulty Plan: I reviewed and discussed his case. She has clinical resolution of infection and is status post recent debridement and has been started on IV antibiotics via PICC line. To change the dressing daily with hydrogel and saline wet-to-dry gauze. Epi cord, advanced wound healing product will be considered for next week if prior authorization is obtained. The indications, planned procedure, benefits, risks, complications, and anticipated healing time is were discussed in detail with patient. He understands this is a staged comprehensive wound healing plan and he is still at risk for limb loss. To continue strict offloading by wearing a Cam walking boot and using a knee roller, crutches, a walker to keep weight off of the site. Compliance was discussed and it is noted he is walking full weightbearing on this ulcer site today. He understands this will significantly impair his healing process and he is at risk for limb loss. It is noted his noninvasive vascular studies were abnormal again and he has had previous lower extremity ulcers with significant delayed healing. He saw Dr. Beck this morning and angiogram will be considered after Dr. Beck further review of his noninvasive vascular study report. This referral is greatly appreciated. To continue with proper diet to control medical health and ulcer healing. He was unable to afford the Yayo and will take Ensure 1-2 times daily as a supplement. I answered all of his questions. To return to the wound healing center in 1 week or call sooner if there are any questions or concerns.
[2018-12-23 10:03] VITALS: BP 125/75; PULSE 85; RESP 16; TEMP 36.3; BMI 29.8
--- NOTE | 2018-12-23 10:49 | PCM.WC.PN ---
(1) Chronic ulcer of left foot with fat layer exposed Status: Chronic Code(s): L97.522 - Non-pressure chronic ulcer of other part of left foot with fat layer exposed (2) Type 2 diabetes mellitus with diabetic polyneuropathy Status: Chronic Code(s): E11.42 - Type 2 diabetes mellitus with diabetic polyneuropathy (3) Achilles rupture, left Status: Chronic Qualifiers: Encounter type: sequela Qualified Code(s): S86.012S - Strain of left Achilles tendon, sequela Code(s): S86.012A - Strain of left Achilles tendon, initial encounter (4) Delayed wound healing Status: Chronic Code(s): T14.8XXD - Other injury of unspecified body region, subsequent encounter (5) Malnutrition Status: Chronic Code(s): E46 - Unspecified protein-calorie malnutrition (6) Walking difficulty due to ankle and foot Status: Chronic Code(s): R26.2 - Difficulty in walking, not elsewhere classified (7) Peripheral vascular disease Status: Chronic Code(s): I73.9 - Peripheral vascular disease, unspecified (8) Osteomyelitis Status: Chronic Qualifiers: Osteomyelitis type: other acute Osteomyelitis location: foot Laterality: left Qualified Code(s): M86.172 - Other acute osteomyelitis, left ankle and foot Code(s): M86.9 - Osteomyelitis, unspecified Type of Wound Date of Service: 12/23/18 Chief Complaint: Left heel ulcer History of Wound: This 73-year-old male with multiple comorbidities is seen today for left plantar heel ulcer with underlying osteomyelitis. He is concurrently being treated for a neglected left Achilles tendon rupture with CAM Walker immobilization and heel lift. He relates significant increase in drainage odor and redness that his brother has visualized the past 2 days. He is experiencing fatigue. He is with his brother today. He has an he denies fever, chill, nausea, vomiting. He did have previous claudication symptoms. He recently had a bursa jet debridement and bone biopsy performed with Dr. Griffin in the operating room this past week and was started on an extended IV antibiotic course for treatment of calcaneus osteomyelitis. He is doing much better and the redness and odor have resolved. He continues to remain nonweightbearing. He also saw Dr. Beck last week and was waiting to schedule an angiogram. He is still waiting for the arrival of his wound VAC. Progress of Wound: Stable - Physical Exam Vital Signs Temp Pulse Resp BP 97.3 F L 85 16 125/75 H 12/23/18 10:03 12/23/18 10:03 12/23/18 10:03 12/23/18 10:03 General: Alert, Oriented x3, Cooperative, No apparent distress Extremities: No cyanosis, Capillary Refill Less than 3 Seconds, No Calf Tenderness - Negative Abhishek and Irwin sign, Diminished Peripheral Pulses, Edema - Decreased Skin: Ulcer/ Wound - No purulence, erythema posturing, odor, infection. To new deep probing to plantar heel. The peripheral skin is hairless and atrophic Wound Measurements and Assessment WC - Nurse 1 - General Ulcer Measurement Start: 11/25/18 14:02 Freq: Status: Active Protocol: Activity Type Activity Date Activity User E-Sign Co-Sign Detail Recorded Client Recorded Date Recorded By Document 12/23/18 10:03 [facility] [id number] 12/23/18 10:10 [facility] 12/23/18 10:03 Wound Center Nurse 1 [Ulcer Assessment] #2 L Med Heel -Combined with other wound No -Current Size (cm) - Length 2.5 -Current Size (cm) - Width 1.7 -Current Size (cm) - Depth 0.7 -Total Square Cm 4.25 -Photo Taken No -Epithelialization None Present -Tunneling No -Undermining/Tunneling No -Circular Undermining No -Exudate Amt Medium -Exudate Type Serosanguineous -Wound Margin Distinct, Outline Attached -Granulation Amt Medium (34-66%) -Granulation Quality Pale Red -Slough/Fibrin Yes -Necrosis Amt Medium (34-66%) -Necrotic Tissue Type Adherent Slough -Texture (Emily-wound Skin Appearance) Assessed Scarring -Moisture (Emily-wound Skin Appearance Maceration ) -Color (Emily-wound Skin Appearance) Assessed Erythema Palor -Temperature (Emily-wound Skin No Abnormality Appearance) (Pt Warm) -Tenderness on Palpation (Emily-wound No Skin Appearance) -Ulcer Cleansing Rinsed/ Irrigated with Saline -Foul Odor after Cleansing No -Anesthetic Used 5% Lidocaine Gel #1 Left Heel -Combined with other wound No -Current Size (cm) - Length 2.3 -Current Size (cm) - Width 3.2 -Current Size (cm) - Depth 1.1 -Total Square Cm 7.36 -Photo Taken No -Epithelialization None Present -Tunneling No -Undermining/Tunneling No -Circular Undermining No -Exudate Amt Medium -Exudate Type Serosanguineous -Wound Margin Distinct, Outline Attached -Granulation Amt Medium (34-66%) -Granulation Quality Pale Red -Slough/Fibrin Yes -Necrosis Amt Medium (34-66%) -Necrotic Tissue Type Adherent Slough -Texture (Emily-wound Skin Appearance) Assessed Scarring -Moisture (Emily-wound Skin Appearance Assessed ) Maceration -Color (Emily-wound Skin Appearance) Erythema Palor -Temperature (Emily-wound Skin No Abnormality Appearance) (Pt Warm) -Tenderness on Palpation (Emily-wound No Skin Appearance) -Ulcer Cleansing Rinsed/ Irrigated with Saline -Foul Odor after Cleansing No -Anesthetic Used 5% Lidocaine Gel WC - Nurse 2 - General Ulcer CM Notes Start: 11/25/18 14:02 Freq: Status: Active Protocol: Activity Type Activity Date Activity User E-Sign Co-Sign Detail Recorded Client Recorded Date Recorded By Document 12/23/18 10:31 AN [id number] 12/23/18 10:35 AN 12/23/18 10:31 Wound Center Nurse 2 [Procedure/Treatment] #2 L Med Heel -Time 10:34 -Correct Patient Yes -Correct Side, Site, Position Yes -Correct Procedure Yes -Procedure Performed Yes -Type of Procedure Debridement -Clinical Debridement Subcutaneous -Post Debridement Size (cm) - Length 2.6 -Post Debridement Size (cm) - Width 1.8 -Post Debridement Size (cm) - Depth 0.7 -Total Square Cm 4.68 -Wound/Ulcer Outcome Not Healed -Bleeding Controlled with Pressure -Offloading Yes -Type of Offloading Knee Walker -Treatment Response Procedure Tolerated Well #1 Left Heel -Time 10:34 -Correct Patient Yes -Correct Side, Site, Position Yes -Correct Procedure Yes -Procedure Performed Yes -Type of Procedure Debridement -Clinical Debridement Subcutaneous -Post Debridement Size (cm) - Length 2.4 -Post Debridement Size (cm) - Width 3.3 -Post Debridement Size (cm) - Depth 1.1 -Total Square Cm 7.92 -Wound/Ulcer Outcome Not Healed -Bleeding Controlled with Pressure -Offloading Yes -Type of Offloading Knee Walker -Treatment Response Procedure Tolerated Well [See Physician Procedure note for Specifics] Pain Scale: 0-10 Numeric [Pain] -Is Patient Pain Free? Yes Musculoskeletal: No Tenderness to Palpation of Joints or Extremities, Muscle Wasting Neurological: - - Lack of normal epicritic sensation light touch consistent with neuropathy Psych/Mental Status: Normal Affect, Appropriate Debridement Note Post-Debridement Measurements/Treatment WC - Nurse 2 - General Ulcer CM Notes Start: 11/25/18 14:02 Freq: Status: Active Protocol: Activity Type Activity Date Activity User E-Sign Co-Sign Detail Recorded Client Recorded Date Recorded By Document 11/25/18 15:05 AN [id number] 11/25/18 15:06 AN Document 12/02/18 15:39 AN [id number] 12/02/18 15:47 AN Document 12/09/18 12:37 DL [id number] 12/09/18 12:46 DL Document 12/16/18 11:45 AN [id number] 12/16/18 11:52 AN Document 12/23/18 10:31 AN [id number] 12/23/18 10:35 AN 11/25/18 12/02/18 12/09/18 15:05 15:39 12:37 Wound Center Nurse 2 #2 L Med Heel -Time 12:41 -Correct Patient Yes -Correct Side, Site, Position Yes -Correct Procedure Yes -Procedure Performed Yes -Type of Procedure Debridement -Clinical Debridement Subcutaneous -Post Debridement Size (cm) - Length 2.2 -Post Debridement Size (cm) - Width 1.5 -Post Debridement Size (cm) - Depth 1 -Total Square Cm 3.30 -Wound/Ulcer Outcome Not Healed -Ulcer Cleansing Rinsed/ Irrigated with Saline -Foul Odor after Cleansing Yes -Bioengineered Tissue No -Bleeding Controlled with Pressure -Offloading Yes -Type of Offloading Camwalker -Treatment Response #1 Left Heel -Time 15:05 15:40 12:42 -Correct Patient Yes Yes Yes -Correct Side, Site, Position Yes Yes Yes -Correct Procedure Yes Yes Yes -Procedure Performed Yes Yes Yes -Type of Procedure Debridement Debridement Debridement -Clinical Debridement Subcutaneous Subcutaneous Subcutaneous -Post Debridement Size (cm) - Length 2.3 2.2 2.7 -Post Debridement Size (cm) - Width 4.0 4.1 3.7 -Post Debridement Size (cm) - Depth 0.3 0.5 1.3 -Total Square Cm 9.20 9.02 9.99 -Wound/Ulcer Outcome Not Healed Not Healed Not Healed -Ulcer Cleansing Rinsed/ Rinsed/ Rinsed/ Irrigated with Irrigated with Irrigated with Saline Saline Saline -Foul Odor after Cleansing No No Yes -Bioengineered Tissue No Yes No -Type of bioengineered Tissue EPIFIX -Expiration Date 03/28/23 -Product Lot Number [id number] -Percent Used 100 -Saline Lot Number [id number] -Topical Lidocaine (%) 4 -Bleeding Controlled with Pressure Pressure Pressure -Offloading Yes Yes Yes -Type of Offloading Camwalker Camwalker Camwalker -Treatment Response Procedure Procedure Procedure Tolerated Well Tolerated Well Tolerated Well Pain Scale: 0-10 Numeric Is Patient Pain Free? Yes Yes Yes 12/16/18 12/23/18 11:45 10:31 Wound Center Nurse 2 #2 L Med Heel -Time 11:49 10:34 -Correct Patient Yes Yes -Correct Side, Site, Position Yes Yes -Correct Procedure Yes Yes -Procedure Performed Yes Yes -Type of Procedure Debridement Debridement -Clinical Debridement Subcutaneous Subcutaneous -Post Debridement Size (cm) - Length 2.6 2.6 -Post Debridement Size (cm) - Width 1.3 1.8 -Post Debridement Size (cm) - Depth 0.6 0.7 -Total Square Cm 3.38 4.68 -Wound/Ulcer Outcome Not Healed Not Healed -Ulcer Cleansing Rinsed/ Irrigated with Saline -Foul Odor after Cleansing No -Bioengineered Tissue No -Bleeding Controlled with Pressure -Offloading Yes -Type of Offloading Knee Walker -Treatment Response Procedure Tolerated Well #1 Left Heel -Time 11:51 10:34 -Correct Patient Yes Yes -Correct Side, Site, Position Yes Yes -Correct Procedure Yes Yes -Procedure Performed Yes Yes -Type of Procedure Debridement Debridement -Clinical Debridement Subcutaneous Subcutaneous -Post Debridement Size (cm) - Length 2.1 2.4 -Post Debridement Size (cm) - Width 3.2 3.3 -Post Debridement Size (cm) - Depth 1.5 1.1 -Total Square Cm 6.72 7.92 -Wound/Ulcer Outcome Not Healed Not Healed -Ulcer Cleansing -Foul Odor after Cleansing -Bioengineered Tissue -Type of bioengineered Tissue -Expiration Date -Product Lot Number -Percent Used -Saline Lot Number -Topical Lidocaine (%) -Bleeding Controlled with Pressure Pressure -Offloading Yes -Type of Offloading Surgical Shoe Knee Walker -Treatment Response Procedure Procedure Tolerated Well Tolerated Well Pain Scale: 0-10 Numeric Is Patient Pain Free? Yes Wound debrided: plantar heel Laterality: Left Wound Grade/Stage: grade 3 Type of Debridement: Excisional debridement Anesthesia Used: 5% Lidocaine Gel Depth: in the subcutaneous layer Percentage of wound debrided: 100 Instrument Used: #15 blade Tissue Removed: fibrous, devitalized subcutaneous, biofilm, slough Severity: Fat Layer Exposed Amount of bleeding with debridement: Mild Bleeding Controlled with: Pressure Patient tolerated procedure well - Additional Wound Wound debrided: medial heel Laterality: Left Wound Grade/Stage: grade 1 Type of Debridement: Excisional debridement Anesthesia Used: 5% Lidocaine Gel Depth: in the subcutaneous layer Percentage of wound debrided: 100 Instrument Used: #15 blade Tissue Removed: fibrous, devitalized subcutaneous, biofilm, slough Severity: Fat Layer Exposed Amount of bleeding with debridement: Mild Bleeding Controlled with: Pressure Patient tolerated procedure: Patient tolerated procedure well Assessment/Plan Assessment: Left heel ulcer with fat layer exposed, no infection. Left Achilles tendon rupture improving. Peripheral vascular disease. Diabetes with neuropathy. Malnutrition. Other comorbidities. Walking difficulty Plan: I reviewed and discussed his case. She has clinical resolution of infection and is status post recent debridement and has been started on IV antibiotics via PICC line. To change the dressing daily with hydrogel and saline wet-to-dry gauze until his wound VAC is applied by home nursing staff. Additional application of epi cord will be considered if this is approved and if he has continued stability. The indications, planned procedure, benefits, risks, complications, and anticipated healing time is were discussed in detail with patient. He understands this is a staged comprehensive wound healing plan and he is still at risk for limb loss. It is noted he had recent podiatric surgery including debridement and bone biopsy. He does have osteomyelitis of the calcaneus and bacterial growth includes B fragilis. His lab trends will be monitored and infectious disease management of IV antibiotics is greatly appreciated. Hyperbaric oxygen therapy treatment will also be discussed. This will be pursued if he is amenable, if he is medically clear, and if he is able to transport to the wound healing center daily for up to 40 sessions. To continue strict offloading by wearing a Cam walking boot and using a knee roller, crutches, a walker to keep weight off of the site. Compliance was discussed and it is noted he is walking full weightbearing on this ulcer site today. He understands this will significantly impair his healing process and he is at risk for limb loss. It is noted his noninvasive vascular studies were abnormal again and he has had previous lower extremity ulcers with significant delayed healing. He saw Dr. Beck recently and angiogram will be considered after Dr. Beck further review of his noninvasive vascular study report. This referral is greatly appreciated. To continue with proper diet to control medical health and ulcer healing. He was unable to afford the Yayo and will take Ensure 1-2 times daily as a supplement. I answered all of his questions. To return to the wound healing center in 1 week or call sooner if there are any questions or concerns.
--- NOTE | 2018-12-23 10:54 | PN.PCM_ITS ---
(1) Chronic ulcer of left foot with fat layer exposed Status: Chronic Code(s): L97.522 - Non-pressure chronic ulcer of other part of left foot with fat layer exposed (2) Type 2 diabetes mellitus with diabetic polyneuropathy Status: Chronic Code(s): E11.42 - Type 2 diabetes mellitus with diabetic polyneuropathy (3) Achilles rupture, left Status: Chronic Qualifiers: Encounter type: sequela Qualified Code(s): S86.012S - Strain of left Achilles tendon, sequela Code(s): S86.012A - Strain of left Achilles tendon, initial encounter (4) Delayed wound healing Status: Chronic Code(s): T14.8XXD - Other injury of unspecified body region, subsequent encounter (5) Malnutrition Status: Chronic Code(s): E46 - Unspecified protein-calorie malnutrition (6) Walking difficulty due to ankle and foot Status: Chronic Code(s): R26.2 - Difficulty in walking, not elsewhere classified (7) Peripheral vascular disease Status: Chronic Code(s): I73.9 - Peripheral vascular disease, unspecified (8) Osteomyelitis Status: Chronic Qualifiers: Osteomyelitis type: other acute Osteomyelitis location: foot Laterality: left Qualified Code(s): M86.172 - Other acute osteomyelitis, left ankle and foot Code(s): M86.9 - Osteomyelitis, unspecified Type of Wound Date of Service: 12/23/18 Chief Complaint: Left heel ulcer History of Wound: This 73-year-old male with multiple comorbidities is seen tod ay for left plantar heel ulcer with underlying osteomyelitis. He is concurrently being treated for a neglected left Achilles tendon rupture with CAM Walker immobilization and heel lift. He relates significant increase in drainage odor and redness that his brother has visualized the past 2 days. He is experiencing fatigue. He is with his brother today. He has an he denies fever, chill, nausea, vomiting. He did have previous claudication symptoms. He recently had a bursa jet debridement and bone biopsy performed with Dr. Griffin in the operating room this past week and was started on an extended IV antibiotic course for treatment of calcaneus osteomyelitis. He is doing much better and the redness and odor have resolved. He continues to remain nonweightbearing. He also saw Dr. Beck last week and was waiting to schedule an angiogram. He is still waiting for the arrival of his wound VAC. Progress of Wound: Stable - Physical Exam Vital Signs Temp Pulse Resp BP 97.3 F L 85 16 125/75 H 12/23/18 10:03 12/23/18 10:03 12/23/18 10:03 12/23/18 10:03 General: Alert, Oriented x3, Cooperative, No apparent distress Extremities: No cyanosis, Capillary Refill Less than 3 Seconds, No Calf Tenderness - Negative Abhishek and Irwin sign, Diminished Peripheral Pulses, Edema - Decreased Skin: Ulcer/ Wound - No purulence, erythema posturing, odor, infection. To new deep probing to plantar heel. The peripheral skin is hairless and atrophic Wound Measurements and Assessment WC - Nurse 1 - General Ulcer Measurement Start: 11/25/18 14:02 Freq: Status: Active Protocol: Activity Type Activity Date Activity User E-Sign Co-Sign Detail Recorded Client Recorded Date Recorded By Document 12/23/18 10:03 [facility] [id number] 12/23/18 10:10 [facility] 12/23/18 10:03 Wound Center Nurse 1 [Ulcer Assessment] #2 L Med Heel -Combined with other wound No -Current Size (cm) - Length 2.5 -Current Size (cm) - Width 1.7 -Current Size (cm) - Depth 0.7 -Total Square Cm 4.25 -Photo Taken No -Epithelialization None Present -Tunneling No -Undermining/Tunneling No -Circular Undermining No -Exudate Amt Medium -Exudate Type Serosanguineous -Wound Margin Distinct, Outline Attached -Granulation Amt Medium (34-66%) -Granulation Quality Pale Red -Slough/Fibrin Yes -Necrosis Amt Medium (34-66%) -Necrotic Tissue Type Adherent Slough -Texture (Emily-wound Skin Appearance) Assessed Scarring -Moisture (Emily-wound Skin Appearance Maceration ) -Color (Emily-wound Skin Appearance) Assessed Erythema Palor -Temperature (Emily-wound Skin No Abnormality Appearance) (Pt Warm) -Tenderness on Palpation (Emily-wound No Skin Appearance) -Ulcer Cleansing Rinsed/ Irrigated with Saline -Foul Odor after Cleansing No -Anesthetic Used 5% Lidocaine Gel #1 Left Heel -Combined with other wound No -Current Size (cm) - Length 2.3 -Current Size (cm) - Width 3.2 -Current Size (cm) - Depth 1.1 -Total Square Cm 7.36 -Photo Taken No -Epithelialization None Present -Tunneling No -Undermining/Tunneling No -Circular Undermining No -Exudate Amt Medium -Exudate Type Serosanguineous -Wound Margin Distinct, Outline Attached -Granulation Amt Medium (34-66%) -Granulation Quality Pale Red -Slough/Fibrin Yes -Necrosis Amt Medium (34-66%) -Necrotic Tissue Type Adherent Slough -Texture (Emily-wound Skin Appearance) Assessed Scarring -Moisture (Emily-wound Skin Appearance Assessed ) Maceration -Color (Emily-wound Skin Appearance) Erythema Palor -Temperature (Emily-wound Skin No Abnormality Appearance) (Pt Warm) -Tenderness on Palpation (Emily-wound No Skin Appearance) -Ulcer Cleansing Rinsed/ Irrigated with Saline -Foul Odor after Cleansing No -Anesthetic Used 5% Lidocaine Gel WC - Nurse 2 - General Ulcer CM Notes Start: 11/25/18 14:02 Freq: Status: Active Protocol: Activity Type Activity Date Activity User E-Sign Co-Sign Detail Recorded Client Recorded Date Recorded By Document 12/23/18 10:31 AN [id number] 12/23/18 10:35 AN 12/23/18 10:31 Wound Center Nurse 2 [Procedure/Treatment] #2 L Med Heel -Time 10:34 -Correct Patient Yes -Correct Side, Site, Position Yes -Correct Procedure Yes -Procedure Performed Yes -Type of Procedure Debridement -Clinical Debridement Subcutaneous -Post Debridement Size (cm) - Length 2.6 -Post Debridement Size (cm) - Width 1.8 -Post Debridement Size (cm) - Depth 0.7 -Total Square Cm 4.68 -Wound/Ulcer Outcome Not Healed -Bleeding Controlled with Pressure -Offloading Yes -Type of Offloading Knee Walker -Treatment Response Procedure Tolerated Well #1 Left Heel -Time 10:34 -Correct Patient Yes -Correct Side, Site, Position Yes -Correct Procedure Yes -Procedure Performed Yes -Type of Procedure Debridement -Clinical Debridement Subcutaneous -Post Debridement Size (cm) - Length 2.4 -Post Debridement Size (cm) - Width 3.3 -Post Debridement Size (cm) - Depth 1.1 -Total Square Cm 7.92 -Wound/Ulcer Outcome Not Healed -Bleeding Controlled with Pressure -Offloading Yes -Type of Offloading Knee Walker -Treatment Response Procedure Tolerated Well [See Physician Procedure note for Specifics] Pain Scale: 0-10 Numeric [Pain] -Is Patient Pain Free? Yes Musculoskeletal: No Tenderness to Palpation of Joints or Extremities, Muscle Wasting Neurological: - - Lack of normal epicritic sensation light touch consistent with neuropathy Psych/Mental Status: Normal Affect, Appropriate Debridement Note Post-Debridement Measurements/Treatment WC - Nurse 2 - General Ulcer CM Notes Start: 11/25/18 14:02 Freq: Status: Active Protocol: Activity Type Activity Date Activity User E-Sign Co-Sign Detail Recorded Client Recorded Date Recorded By Document 11/25/18 15:05 AN [id number] 11/25/18 15:06 AN Document 12/02/18 15:39 AN [id number] 12/02/18 15:47 AN Document 12/09/18 12:37 DL [id number] 12/09/18 12:46 DL Document 12/16/18 11:45 AN [id number] 12/16/18 11:52 AN Document 12/23/18 10:31 AN [id number] 12/23/18 10:35 AN 11/25/18 12/02/18 12/09/18 15:05 15:39 12:37 Wound Center Nurse 2 #2 L Med Heel -Time 12:41 -Correct Patient Yes -Correct Side, Site, Position Yes -Correct Procedure Yes -Procedure Performed Yes -Type of Procedure Debridement -Clinical Debridement Subcutaneous -Post Debridement Size (cm) - Length 2.2 -Post Debridement Size (cm) - Width 1.5 -Post Debridement Size (cm) - Depth 1 -Total Square Cm 3.30 -Wound/Ulcer Outcome Not Healed -Ulcer Cleansing Rinsed/ Irrigated with Saline -Foul Odor after Cleansing Yes -Bioengineered Tissue No -Bleeding Controlled with Pressure -Offloading Yes -Type of Offloading Camwalker -Treatment Response #1 Left Heel -Time 15:05 15:40 12:42 -Correct Patient Yes Yes Yes -Correct Side, Site, Position Yes Yes Yes -Correct Procedure Yes Yes Yes -Procedure Performed Yes Yes Yes -Type of Procedure Debridement Debridement Debridement -Clinical Debridement Subcutaneous Subcutaneous Subcutaneous -Post Debridement Size (cm) - Length 2.3 2.2 2.7 -Post Debridement Size (cm) - Width 4.0 4.1 3.7 -Post Debridement Size (cm) - Depth 0.3 0.5 1.3 -Total Square Cm 9.20 9.02 9.99 -Wound/Ulcer Outcome Not Healed Not Healed Not Healed -Ulcer Cleansing Rinsed/ Rinsed/ Rinsed/ Irrigated with Irrigated with Irrigated with Saline Saline Saline -Foul Odor after Cleansing No No Yes -Bioengineered Tissue No Yes No -Type of bioengineered Tissue EPIFIX -Expiration Date 03/28/23 -Product Lot Number [id number] -Percent Used 100 -Saline Lot Number [id number] -Topical Lidocaine (%) 4 -Bleeding Controlled with Pressure Pressure Pressure -Offloading Yes Yes Yes -Type of Offloading Camwalker Camwalker Camwalker -Treatment Response Procedure Procedure Procedure Tolerated Well Tolerated Well Tolerated Well Pain Scale: 0-10 Numeric Is Patient Pain Free? Yes Yes Yes 12/16/18 12/23/18 11:45 10:31 Wound Center Nurse 2 #2 L Med Heel -Time 11:49 10:34 -Correct Patient Yes Yes -Correct Side, Site, Position Yes Yes -Correct Procedure Yes Yes -Procedure Performed Yes Yes -Type of Procedure Debridement Debridement -Clinical Debridement Subcutaneous Subcutaneous -Post Debridement Size (cm) - Length 2.6 2.6 -Post Debridement Size (cm) - Width 1.3 1.8 -Post Debridement Size (cm) - Depth 0.6 0.7 -Total Square Cm 3.38 4.68 -Wound/Ulcer Outcome Not Healed Not Healed -Ulcer Cleansing Rinsed/ Irrigated with Saline -Foul Odor after Cleansing No -Bioengineered Tissue No -Bleeding Controlled with Pressure -Offloading Yes -Type of Offloading Knee Walker -Treatment Response Procedure Tolerated Well #1 Left Heel -Time 11:51 10:34 -Correct Patient Yes Yes -Correct Side, Site, Position Yes Yes -Correct Procedure Yes Yes -Procedure Performed Yes Yes -Type of Procedure Debridement Debridement -Clinical Debridement Subcutaneous Subcutaneous -Post Debridement Size (cm) - Length 2.1 2.4 -Post Debridement Size (cm) - Width 3.2 3.3 -Post Debridement Size (cm) - Depth 1.5 1.1 -Total Square Cm 6.72 7.92 -Wound/Ulcer Outcome Not Healed Not Healed -Ulcer Cleansing -Foul Odor after Cleansing -Bioengineered Tissue -Type of bioengineered Tissue -Expiration Date -Product Lot Number -Percent Used -Saline Lot Number -Topical Lidocaine (%) -Bleeding Controlled with Pressure Pressure -Offloading Yes -Type of Offloading Surgical Shoe Knee Walker -Treatment Response Procedure Procedure Tolerated Well Tolerated Well Pain Scale: 0-10 Numeric Is Patient Pain Free? Yes Wound debrided: plantar heel Laterality: Left Wound Grade/Stage: grade 3 Type of Debridement: Excisional debridement Anesthesia Used: 5% Lidocaine Gel Depth: in the subcutaneous layer Percentage of wound debrided: 100 Instrument Used: #15 blade Tissue Removed: fibrous, devitalized subcutaneous, biofilm, slough Severity: Fat Layer Exposed Amount of bleeding with debridement: Mild Bleeding Controlled with: Pressure Patient tolerated procedure well - Additional Wound Wound debrided: medial heel Laterality: Left Wound Grade/Stage: grade 1 Type of Debridement: Excisional debridement Anesthesia Used: 5% Lidocaine Gel Depth: in the subcutaneous layer Percentage of wound debrided: 100 Instrument Used: #15 blade Tissue Removed: fibrous, devitalized subcutaneous, biofilm, slough Severity: Fat Layer Exposed Amount of bleeding with debridement: Mild Bleeding Controlled with: Pressure Patient tolerated procedure: Patient tolerated procedure well Assessment/Plan Assessment: Left heel ulcer with fat layer exposed, no infection. Left Achilles tendon rupture improving. Peripheral vascular disease. Diabetes with neuropathy. Malnutrition. Other comorbidities. Walking difficulty Plan: I reviewed and discussed his case. She has clinical resolution of infection and is status post recent debridement and has been started on IV antibiotics via PICC line. To change the dressing daily with hydrogel and saline wet-to-dry gauze until his wound VAC is applied by home nursing staff. Additional application of epi cord will be considered if this is approved and if he has continued stability. The indications, planned procedure, benefits, risks, complications, and anticipated healing time is were discussed in detail with patient. He understands this is a staged comprehensive wound healing plan and he is still at risk for limb loss. It is noted he had recent podiatric surgery including debridement and bone biopsy. He does have osteomyelitis of the calcaneus and bacterial growth includes B fragilis. His lab trends will be monitored and infectious disease management of IV antibiotics is greatly appreciated. Hyperbaric oxygen therapy treatment will also be discussed. This will be pursued if he is amenable, if he is medically clear, and if he is able to transport to the wound healing center daily for up to 40 sessions. To continue strict offloading by wearing a Cam walking boot and using a knee roller, crutches, a walker to keep weight off of the site. Compliance was discussed and it is noted he is walking full weightbearing on this ulcer site today. He understands this will significantly impair his healing process and he is at risk for limb loss. It is noted his noninvasive vascular studies were abnormal again and he has had previous lower extremity ulcers with significant delayed healing. He saw Dr. Beck recently and angiogram will be considered after Dr. Beck further review of his noninvasive vascular study report. This referral is greatly appreciated. To continue with proper diet to control medical health and ulcer healing. He was unable to afford the Yayo and will take Ensure 1-2 times daily as a supplement. I answered all of his questions. To return to the wound healing center in 1 week or call sooner if there are any questions or concerns.
== END 2018-12-25 23:59 ==
LOC: WC 09:00
PROVIDERS: Family Provider Family Medicine; PCP Family Medicine; Referring Provider Podiatrist; Visit Provider Podiatrist
DX: E11.621 Type 2 diabetes mellitus with foot ulcer (principal); E11.42 Type 2 diabetes mellitus with diabetic polyneuropathy; L97.422 Non-pressure chronic ulcer of left heel and midfoot with fat layer exposed; R26.2 Difficulty in walking, not elsewhere classified; S86.012A Strain of left Achilles tendon, initial encounter; X58.XXXA Exposure to other specified factors, initial encounter; E11.51 Type 2 diabetes mellitus with diabetic peripheral angiopathy without gangrene
CPT/HCPCS: 11042; 15271; 87070; 87075; 87077; 87186; 87205; 87640; Q4186

== ENCOUNTER 2019-01-11 14:10 | Outpatient (RCR) | payer MEDICARE, SELFPAY ==
[2018-12-28 16:48] VITALS: BMI 28.3
[2018-12-28 17:39] LABS: Erythrocyte Sedimentation Rate 29 mm/hr (0-20)
[2018-12-28 17:41] LABS: Hematocrit 40.1 % (40-54); Mean Corp Hgb Conc 32.4 g/gl (32-36); Mean Corpuscular Hgb 30.2 pg (27.0-32.0); Mean Corpuscular Volume 93.3 fL (80-94); Mean Platelet Vol. 10.2 fl (6.2-12.0); Platelet Count 363 K/mm3 (150-450); RBC Distribution Width CV 13.5 % (11.6-14.6); RBC Distribution Width SD 45.6 fl (35.1-43.9); White Blood Count 8.7 K/mm3 (4.4-11.0)
[2018-12-28 17:45] LABS: Scan Indicated on CBC? Y/N NO
[2018-12-28 18:12] LABS: AST(SGOT) 20 U/L (15-37); Alanine Aminotransfer ALT/SGPT 24 U/L (16-61); Albumin, Serum 3.9 g/dL (3.2-5.0); Alkaline Phosphatase 71 U/L (45-117); Anion Gap 11 (5-15); BUN 18 mg/dL (7-18); Bilirubin, Direct 0.07 mg/dL (0.00-0.30); Calcium,Total 9.2 mg/dL (8.5-10.1); Chloride 98 mmol/L (98-107); EST Glomerular Filtration Rate 88 mL/min (>60); Est Glom Filt Rate - Afr Amer 107 mL/min (>60); Globulin 3.5 g/dL (2.2-4.2); Glucose 187 mg/dL (74-106); Potassium 4.5 mmol/L (3.5-5.1); Protein, Total 7.4 g/dL (6.4-8.2); Sodium Level 137 mmol/L (136-145)
[2019-01-11 14:23] LABS: Hemoglobin 12.6 g/dl (13.0-16.5); Mean Corp Hgb Conc 32.3 g/gl (32-36); Mean Corpuscular Hgb 29.6 pg (27.0-32.0); Mean Corpuscular Volume 91.8 fL (80-94); Platelet Count 244 K/mm3 (150-450); RBC Distribution Width CV 13.8 % (11.6-14.6); RBC Distribution Width SD 45.5 fl (35.1-43.9); Red Blood Count 4.25 M/mm3 (4.6-6.2); Scan Indicated on CBC? Y/N NO; White Blood Count 8.1 K/mm3 (4.4-11.0)
[2019-01-11 14:25] LABS: Erythrocyte Sedimentation Rate 19 mm/hr (0-20)
[2019-01-11 14:31] LABS: AST(SGOT) 18 U/L (15-37); Alanine Aminotransfer ALT/SGPT 22 U/L (16-61); Albumin, Serum 3.7 g/dL (3.2-5.0); Alkaline Phosphatase 42 U/L (45-117); Anion Gap 8 (5-15); BUN 15 mg/dL (7-18); BUN/Creat Ratio 18.4 RATIO (10-20); Bilirubin, Direct 0.09 mg/dL (0.00-0.30); Calcium,Total 9.3 mg/dL (8.5-10.1); Chloride 101 mmol/L (98-107); Creatinine, Serum 0.82 mg/dL (0.70-1.30); EST Glomerular Filtration Rate 99 mL/min (>60); Est Glom Filt Rate - Afr Amer 119 mL/min (>60); Globulin 3.7 g/dL (2.2-4.2); Glucose 136 mg/dL (74-106); Potassium 4.3 mmol/L (3.5-5.1); Protein, Total 7.4 g/dL (6.4-8.2); Sodium Level 140 mmol/L (136-145)
== END 2019-01-24 23:59 ==
LOC: HHLAB 14:10
PROVIDERS: Family Provider Family Medicine; PCP Family Medicine; Referring Provider Podiatrist; Visit Provider Podiatrist
DX: E11.621 Type 2 diabetes mellitus with foot ulcer (principal); L97.422 Non-pressure chronic ulcer of left heel and midfoot with fat layer exposed
CPT/HCPCS: 80048; 80076; 85027; 85652

== ENCOUNTER 2019-01-20 09:00 | Outpatient (RCR) | payer MEDICARE, SELFPAY ==
[2018-12-26 01:07] VITALS: BP 125/75; PULSE 85; RESP 16; TEMP 36.3
[2018-12-28 16:48] VITALS: BMI 28.3
[2018-12-30 10:15] VITALS: BP 147/80; PULSE 79; RESP 18; TEMP 36.3; BMI 28.3
--- NOTE | 2018-12-30 13:16 | PN.PCM_ITS ---
(1) Chronic ulcer of left foot with fat layer exposed Status: Chronic Code(s): L97.522 - Non-pressure chronic ulcer of other part of left foot with fat layer exposed (2) Walking difficulty due to ankle and foot Status: Chronic Code(s): R26.2 - Difficulty in walking, not elsewhere classified (3) Type 2 diabetes mellitus with diabetic polyneuropathy Status: Chronic Code(s): E11.42 - Type 2 diabetes mellitus with diabetic polyneuropathy (4) PVD (peripheral vascular disease) Status: Chronic Code(s): I73.9 - Peripheral vascular disease, unspecified (5) Delayed wound healing Status: Chronic Code(s): T14.8XXD - Other injury of unspecified body region, subsequent encounter (6) Malnutrition Status: Chronic Code(s): E46 - Unspecified protein-calorie malnutrition (7) Osteomyelitis of left foot Status: Chronic Code(s): M86.9 - Osteomyelitis, unspecified Type of Wound Date of Service: 12/30/18 Chief Complaint: Left heel ulcer History of Wound: This 73-year-old male with multiple comorbidities is seen today for left plantar heel ulcer. He is concurrently being treated for a neglected left Achilles tendon rupture with CAM Walker immobilization and heel lift. He denies fever, chill, nausea, vomiting. He did have previous claudication symptoms. He recently had a versa jet debridement and bone biopsy performed with Dr. Griffin in the operating room and was started on an extended IV antibiotic course for treatment of calcaneus osteomyelitis. He is doing much better and the redness and odor have resolved. He continues to remain nonweightbearing. He he recently completed a vascular surgery consultation Dr. Beck who recommends further work-up with angiogram. This is still in the process of being scheduled. He has been compliant with wound VAC and home health has been helping him. Progress of Wound: Stable - Physical Exam Vital Signs Temp Pulse Resp BP 97.3 F L 79 18 147/80 H 12/30/18 10:15 12/30/18 10:15 12/30/18 10:15 12/30/18 10:15 General: Alert, Oriented x3, Cooperative, No apparent distress Extremities: Capillary Refill Less than 3 Seconds, No Calf Tenderness - Negative Abhishek and Irwin signs bilateral carotid, Diminished Peripheral Pulses, Edema - Mild to moderate lower extremity, - - No pain on palpation to the Achilles of the left lower extremity. There is no palpable [place] and the Achilles site seems to be healing and scarring in which is encouraging. Skin: Ulcer/ Wound - No purulence, erythema, streaking, odor, infection. There is no necrosis. There is exposed deep periosteal tissue and plantar fascial tissue visualized from the plantar ulcer site. The peripheral skin is hairless and atrophic. Wound Measurements and Assessment WC - Nurse 1 - General Ulcer Measurement Start: 12/30/18 10:15 Freq: Status: Active Protocol: Activity Type Activity Date Activity User E-Sign Co-Sign Detail Recorded Client Recorded Date Recorded By Document 12/30/18 10:15 RB [id number] 12/30/18 10:21 RB 12/30/18 10:15 Wound Center Nurse 1 [Ulcer Assessment] #2 L Med Heel -Combined with other wound No -Current Size (cm) - Length 2.5 -Current Size (cm) - Width 1 -Current Size (cm) - Depth 0.6 -Total Square Cm 2.5 -Tunneling No -Undermining/Tunneling No -Circular Undermining No -Exudate Amt Medium -Exudate Type Serosanguineous -Wound Margin Distinct, Outline Attached -Granulation Amt Medium (34-66%) -Granulation Quality [place] -Slough/Fibrin Yes -Necrosis Amt Small (1-33%) -Necrotic Tissue Type Adherent Slough -Structure Exposed N/A -Texture (Emily-wound Skin Appearance) Assessed -Moisture (Emily-wound Skin Appearance Assessed ) Maceration -Color (Emily-wound Skin Appearance) Assessed -Temperature (Emily-wound Skin No Abnormality Appearance) (Pt Warm) -Tenderness on Palpation (Emily-wound No Skin Appearance) -Ulcer Cleansing Rinsed/ Irrigated with Saline -Foul Odor after Cleansing No -Anesthetic Used 4% Lidocaine Solution #1 Left Heel -Combined with other wound No -Current Size (cm) - Length 1.6 -Current Size (cm) - Width 3 -Current Size (cm) - Depth 1.4 -Total Square Cm 4.8 -Tunneling No -Undermining/Tunneling No -Circular Undermining No -Exudate Amt Small -Exudate Type Serosanguineous -Wound Margin Distinct, Outline Attached -Granulation Amt Large (67-100%) -Granulation Quality [place] -Slough/Fibrin Yes -Necrosis Amt Medium (34-66%) -Necrotic Tissue Type Adherent Slough -Structure Exposed N/A -Texture (Emily-wound Skin Appearance) Assessed -Moisture (Emily-wound Skin Appearance Assessed ) Maceration -Color (Emily-wound Skin Appearance) Assessed -Temperature (Emily-wound Skin No Abnormality Appearance) (Pt Warm) -Tenderness on Palpation (Emily-wound No Skin Appearance) -Ulcer Cleansing Wound Cleanser -Foul Odor after Cleansing No -Anesthetic Used 4% Lidocaine Solution WC - Nurse 2 - General Ulcer CM Notes Start: 12/30/18 10:15 Freq: Status: Active Protocol: Activity Type Activity Date Activity User E-Sign Co-Sign Detail Recorded Client Recorded Date Recorded By Document 12/30/18 10:30 AN [id number] 12/30/18 10:35 AN 12/30/18 10:30 Wound Center Nurse 2 [Procedure/Treatment] #2 L Med Heel -Time 10:34 -Correct Patient Yes -Correct Side, Site, Position Yes -Correct Procedure Yes -Procedure Performed Yes -Type of Procedure Debridement -Clinical Debridement Subcutaneous -Post Debridement Size (cm) - Length 2.6 -Post Debridement Size (cm) - Width 1.1 -Post Debridement Size (cm) - Depth 0.6 -Total Square Cm 2.86 -Wound/Ulcer Outcome Not Healed -Bleeding Controlled with Pressure -Offloading Yes -Treatment Response Procedure Tolerated Well #1 Left Heel -Time 10:34 -Correct Patient Yes -Correct Side, Site, Position Yes -Correct Procedure Yes -Procedure Performed Yes -Type of Procedure Debridement -Clinical Debridement Subcutaneous -Post Debridement Size (cm) - Length 1.7 -Post Debridement Size (cm) - Width 3.1 -Post Debridement Size (cm) - Depth 1.4 -Total Square Cm 5.27 -Wound/Ulcer Outcome Not Healed -Ulcer Cleansing Rinsed/ Irrigated with Saline -Foul Odor after Cleansing No -Bleeding Controlled with Pressure -Offloading Yes -Treatment Response Procedure Tolerated Well [See Physician Procedure note for Specifics] Pain Scale: 0-10 Numeric [Pain] -Is Patient Pain Free? Yes Musculoskeletal: No Tenderness to Palpation of Joints or Extremities, Muscle Wasting, - - No pain with ulcer manipulation. 4 out of 5 plantarflexion strength left lower extremity Neurological: - - Lack of normal epicritic sensation to light touch consistent with neuropathy Psych/Mental Status: Normal Affect, Appropriate Debridement Note Post-Debridement Measurements/Treatment WC - Nurse 2 - General Ulcer CM Notes Start: 12/30/18 10:15 Freq: Status: Active Protocol: Activity Type Activity Date Activity User E-Sign Co-Sign Detail Recorded Client Recorded Date Recorded By Document 12/30/18 10:30 AN [id number] 12/30/18 10:35 AN 12/30/18 10:30 Wound Center Nurse 2 #2 L Med Heel -Time 10:34 -Correct Patient Yes -Correct Side, Site, Position Yes -Correct Procedure Yes -Procedure Performed Yes -Type of Procedure Debridement -Clinical Debridement Subcutaneous -Post Debridement Size (cm) - Length 2.6 -Post Debridement Size (cm) - Width 1.1 -Post Debridement Size (cm) - Depth 0.6 -Total Square Cm 2.86 -Wound/Ulcer Outcome Not Healed -Bleeding Controlled with Pressure -Offloading Yes -Treatment Response Procedure Tolerated Well #1 Left Heel -Time 10:34 -Correct Patient Yes -Correct Side, Site, Position Yes -Correct Procedure Yes -Procedure Performed Yes -Type of Procedure Debridement -Clinical Debridement Subcutaneous -Post Debridement Size (cm) - Length 1.7 -Post Debridement Size (cm) - Width 3.1 -Post Debridement Size (cm) - Depth 1.4 -Total Square Cm 5.27 -Wound/Ulcer Outcome Not Healed -Ulcer Cleansing Rinsed/ Irrigated with Saline -Foul Odor after Cleansing No -Bleeding Controlled with Pressure -Offloading Yes -Treatment Response Procedure Tolerated Well Pain Scale: 0-10 Numeric Is Patient Pain Free? Yes Wound debrided: plantar heel Laterality: Left Wound Grade/Stage: grade 3 Type of Debridement: Excisional debridement Anesthesia Used: 5% Lidocaine Gel Depth: in the subcutaneous layer Percentage of wound debrided: 100 Instrument Used: #15 blade Tissue Removed: fibrous, devitalized subcutaneous, biofilm, slough Severity: Fat Layer Exposed Amount of bleeding with debridement: Mild Bleeding Controlled with: Pressure Patient tolerated procedure well - Additional Wound Wound debrided: medial heel Laterality: Left Wound Grade/Stage: grade 1 Type of Debridement: Excisional debridement Anesthesia Used: 5% Lidocaine Gel Depth: in the subcutaneous layer Percentage of wound debrided: 100 Instrument Used: #15 blade Tissue Removed: fibrous, devitalized subcutaneous, biofilm, slough Severity: Fat Layer Exposed Amount of bleeding with debridement: Mild Bleeding Controlled with: Pressure Patient tolerated procedure: Patient did not tolerate procedure well Assessment/Plan Assessment: Left heel ulcer with fat layer exposed, no infection. Left Achilles tendon rupture improving. Peripheral vascular disease. Diabetes with neuropathy. Malnutrition. Other comorbidities. Walking difficulty Plan: I reviewed and discussed his case. Subcutaneous excisional debridement was performed as noted in the clinical panel. He has clinical resolution of infection and is status post recent debridement. He also continues on IV antibiotics via PICC line under the management of infectious disease. Epi cord, advanced wound healing product will be considered in the near future if he continues to granulate in and proceed well with the wound VAC. The indications, planned procedure, benefits, risks, complications, and anticipated healing time is were discussed in detail with patient. He understands this is a staged comprehensive wound healing plan and he is still at risk for limb loss. To continue strict offloading by wearing a Cam walking boot and using a knee roller, crutches, a walker to keep weight off of the site. Compliance was discussed. He understands this will significantly impair his healing process and he is at risk for limb loss. It is noted his noninvasive vascular studies were abnormal again and he has had previous lower extremity ulcers with significant delayed healing. He saw Dr. Beck and angiogram is planned. He was unable to obtain Yayo and will take Ensure 1-2 times daily as a supplement. I answered all of his questions. To return to the wound healing center in [address] Griffin, or call sooner if there are any questions or concerns.
[2019-01-07 13:12] VITALS: BP 129/78; PULSE 90; RESP 18; TEMP 36.2; BMI 28.3
--- NOTE | 2019-01-07 14:19 | PCM.WC.PN ---
(1) Walking difficulty due to ankle and foot Status: Chronic Current Visit: No Code(s): R26.2 - Difficulty in walking, not elsewhere classified (2) Osteomyelitis of left foot Status: Chronic Current Visit: No Code(s): M86.9 - Osteomyelitis, unspecified (3) Type 2 diabetes mellitus with diabetic polyneuropathy Status: Chronic Current Visit: No Code(s): E11.42 - Type 2 diabetes mellitus with diabetic polyneuropathy (4) PVD (peripheral vascular disease) Status: Chronic Current Visit: No Code(s): I73.9 - Peripheral vascular disease, unspecified (5) Chronic ulcer of left foot with fat layer exposed Status: Chronic Current Visit: No Code(s): L97.522 - Non-pressure chronic ulcer of other part of left foot with fat layer exposed (6) Delayed wound healing Status: Chronic Current Visit: No Code(s): T14.8XXD - Other injury of unspecified body region, subsequent encounter (7) Malnutrition Status: Chronic Current Visit: No Code(s): E46 - Unspecified protein-calorie malnutrition Type of Wound Chief Complaint: Left heel ulcer History of Wound: This 73-year-old male with multiple comorbidities is seen today for left plantar heel ulcer. He is concurrently being treated for a neglected left Achilles tendon rupture with CAM Walker immobilization and heel lift. He denies fever, chill, nausea, vomiting. He did have previous claudication symptoms. He recently had a versa jet debridement and bone biopsy performed with Dr. Griffin in the operating room and was started on an extended IV antibiotic course for treatment of calcaneus osteomyelitis. He is doing much better and the redness and odor have resolved. He continues to remain nonweightbearing. He he recently completed a vascular surgery consultation Dr. Beck who recommends further work-up with angiogram. This is still in the process of being scheduled. He has been compliant with wound VAC and home health has been helping him. Progress of Wound: Ulcer site stable. No signs of local infection. - Physical Exam Vital Signs Temp Pulse Resp BP 97.1 F L 90 18 129/78 H 01/07/19 13:12 01/07/19 13:12 01/07/19 13:12 01/07/19 13:12 General: Alert, Oriented x3, Cooperative, No apparent distress Extremities: Capillary Refill Less than 3 Seconds, No Calf Tenderness - Negative Abhishek and Irwin signs bilateral, Diminished Peripheral Pulses, Edema, - - No pain to the Achilles tendon of the left lower extremity today again Skin: Ulcer/ Wound - No purulence, erythema, streaking, odor, infection. There is no necrosis. There is exposed deep periosteal tissue and plantar fascial tissue visualized from the plantar ulcer site. The peripheral skin is hairless and atrophic. Wound Measurements and Assessment WC - Nurse 1 - General Ulcer Measurement Start: 12/30/18 10:15 Freq: Status: Active Protocol: Activity Type Activity Date Activity User E-Sign Co-Sign Detail Recorded Client Recorded Date Recorded By Document 01/07/19 13:12 RB [id number] 01/07/19 13:32 RB 01/07/19 13:12 Wound Center Nurse 1 [Ulcer Assessment] #2 L Med Heel -Combined with other wound No -Current Size (cm) - Length 2.3 -Current Size (cm) - Width 1 -Current Size (cm) - Depth 0.9 -Total Square Cm 2.3 -Tunneling No -Undermining/Tunneling No -Circular Undermining No -Exudate Amt Medium -Exudate Type Serosanguineous -Wound Margin Thickened & Rolled Under -Granulation Amt Large (67-100%) -Granulation Quality [place] -Slough/Fibrin Yes -Necrosis Amt Small (1-33%) -Necrotic Tissue Type Adherent Slough -Structure Exposed N/A -Texture (Emily-wound Skin Appearance) Assessed -Moisture (Emily-wound Skin Appearance Assessed ) -Color (Emily-wound Skin Appearance) Assessed [place]ma -Temperature (Emily-wound Skin No Abnormality Appearance) (Pt Warm) -Tenderness on Palpation (Emily-wound No Skin Appearance) -Ulcer Cleansing Wound Cleanser -Foul Odor after Cleansing No -Anesthetic Used 4% Lidocaine Solution #1 Left Heel -Combined with other wound No -Current Size (cm) - Length 1.5 -Current Size (cm) - Width 2.7 -Current Size (cm) - Depth 1.4 -Total Square Cm 4.05 -Tunneling No -Undermining/Tunneling No -Circular Undermining No -Exudate Amt Small -Exudate Type Serosanguineous -Wound Margin Thickened & Rolled Under -Granulation Amt Large (67-100%) -Granulation Quality [place] -Slough/Fibrin Yes -Necrosis Amt Small (1-33%) -Necrotic Tissue Type Adherent Slough -Structure Exposed N/A -Texture (Emily-wound Skin Appearance) Assessed -Moisture (Emily-wound Skin Appearance Assessed ) -Color (Emily-wound Skin Appearance) Assessed Erythema -Temperature (Emily-wound Skin No Abnormality Appearance) (Pt Warm) -Tenderness on Palpation (Emily-wound No Skin Appearance) -Ulcer Cleansing Wound Cleanser -Foul Odor after Cleansing No -Anesthetic Used 4% Lidocaine Solution [Edema Assessment] -Lower Limb Edema Present Yes -Left Calf (cm) 33.5 -Left Ankle (cm) 23 WC - Nurse 2 - General Ulcer CM Notes Start: 12/30/18 10:15 Freq: Status: Active Protocol: Activity Type Activity Date Activity User E-Sign Co-Sign Detail Recorded Client Recorded Date Recorded By Document 01/07/19 13:42 AN [id number] 01/07/19 13:45 AN 01/07/19 13:42 Wound Center Nurse 2 [Procedure/Treatment] #2 L Med Heel -Time 13:42 -Correct Patient Yes -Correct Side, Site, Position Yes -Correct Procedure Yes -Procedure Performed Yes -Type of Procedure Debridement -Clinical Debridement Subcutaneous -Post Debridement Size (cm) - Length 2.4 -Post Debridement Size (cm) - Width 1.5 -Post Debridement Size (cm) - Depth 0.6 -Total Square Cm 3.60 -Wound/Ulcer Outcome Not Healed -Ulcer Cleansing Rinsed/ Irrigated with Saline -Foul Odor after Cleansing No -Bioengineered Tissue No -Bleeding Controlled with Pressure -Offloading Yes -Type of Offloading Camwalker -Treatment Response Procedure Tolerated Well #1 Left Heel -Time 13:43 -Correct Patient Yes -Correct Side, Site, Position Yes -Correct Procedure Yes -Procedure Performed Yes -Type of Procedure Debridement -Clinical Debridement Subcutaneous -Post Debridement Size (cm) - Length 1.7 -Post Debridement Size (cm) - Width 2.9 -Post Debridement Size (cm) - Depth 1.3 -Total Square Cm 4.93 -Wound/Ulcer Outcome Not Healed -Ulcer Cleansing Rinsed/ Irrigated with Saline -Foul Odor after Cleansing No -Bioengineered Tissue No -Bleeding Controlled with Pressure -Type of Offloading Knee Walker -Treatment Response Procedure Tolerated Well [See Physician Procedure note for Specifics] Pain Scale: 0-10 Numeric [Pain] -Is Patient Pain Free? Yes Musculoskeletal: No Tenderness to Palpation of Joints or Extremities, No Muscle Wasting, - - No pain with manipulation of ulcer site Neurological: - - Lack of normal epicritic sensation to light touch Psych/Mental Status: Normal Affect, Appropriate Debridement Note Post-Debridement Measurements/Treatment WC - Nurse 2 - General Ulcer CM Notes Start: 12/30/18 10:15 Freq: Status: Active Protocol: Activity Type Activity Date Activity User E-Sign Co-Sign Detail Recorded Client Recorded Date Recorded By Document 12/30/18 10:30 AN [id number] 12/30/18 10:35 AN Document 01/07/19 13:42 AN [id number] 01/07/19 13:45 AN 12/30/18 01/07/19 10:30 13:42 Wound Center Nurse 2 #2 L Med Heel -Time 10:34 13:42 -Correct Patient Yes Yes -Correct Side, Site, Position Yes Yes -Correct Procedure Yes Yes -Procedure Performed Yes Yes -Type of Procedure Debridement Debridement -Clinical Debridement Subcutaneous Subcutaneous -Post Debridement Size (cm) - Length 2.6 2.4 -Post Debridement Size (cm) - Width 1.1 1.5 -Post Debridement Size (cm) - Depth 0.6 0.6 -Total Square Cm 2.86 3.60 -Wound/Ulcer Outcome Not Healed Not Healed -Ulcer Cleansing Rinsed/ Irrigated with Saline -Foul Odor after Cleansing No -Bioengineered Tissue No -Bleeding Controlled with Pressure Pressure -Offloading Yes Yes -Type of Offloading Camwalker -Treatment Response Procedure Procedure Tolerated Well Tolerated Well #1 Left Heel -Time 10:34 13:43 -Correct Patient Yes Yes -Correct Side, Site, Position Yes Yes -Correct Procedure Yes Yes -Procedure Performed Yes Yes -Type of Procedure Debridement Debridement -Clinical Debridement Subcutaneous Subcutaneous -Post Debridement Size (cm) - Length 1.7 1.7 -Post Debridement Size (cm) - Width 3.1 2.9 -Post Debridement Size (cm) - Depth 1.4 1.3 -Total Square Cm 5.27 4.93 -Wound/Ulcer Outcome Not Healed Not Healed -Ulcer Cleansing Rinsed/ Rinsed/ Irrigated with Irrigated with Saline Saline -Foul Odor after Cleansing No No -Bioengineered Tissue No -Bleeding Controlled with Pressure Pressure -Offloading Yes -Type of Offloading Knee Walker -Treatment Response Procedure Procedure Tolerated Well Tolerated Well Pain Scale: 0-10 Numeric Is Patient Pain Free? Yes Yes Wound debrided: Plantar heel Laterality: Left Type of Debridement: Excisional debridement Anesthesia Used: 4% Lidocaine Solution Depth: in the subcutaneous layer Percentage of wound debrided: 100 Instrument Used: #15 blade Tissue Removed: Fibrous tissue, devitalized subcutaneous tissue, biofilm, slough Severity: Fat Layer Exposed Amount of bleeding with debridement: Mild Bleeding Controlled with: Pressure Patient tolerated procedure well - Additional Wound Wound debrided: Medial heel Laterality: Left Type of Debridement: Excisional debridement Anesthesia Used: 4% Lidocaine Solution Depth: in the subcutaneous layer Percentage of wound debrided: 100 Instrument Used: #15 blade Tissue Removed: Fibrous tissue, devitalized subcutaneous tissue, biofilm, slough Severity: Fat Layer Exposed Amount of bleeding with debridement: Mild Bleeding Controlled with: Pressure Patient tolerated procedure: Patient tolerated procedure well Assessment/Plan Assessment: Left heel ulcer with fat layer exposed, no infection. Left Achilles tendon rupture improving. Peripheral vascular disease. Diabetes with neuropathy. Malnutrition. Other comorbidities. Walking difficulty Plan: Patient was examined and evaluated today as courtesy visit for Dr. Cifuentes. I reviewed and discussed his case. Subcutaneous excisional debridement was performed as noted in the clinical panel. He has clinical resolution of infection and is status post recent debridement. He also continues on IV antibiotics via PICC line under the management of infectious disease. He understands this is a staged comprehensive wound healing plan and he is still at risk for limb loss. To continue strict offloading by wearing a Cam walking boot and using a knee roller, crutches, a walker to keep weight off of the site. Compliance was discussed. He understands this will significantly impair his healing process and he is at risk for limb loss. It is noted his noninvasive vascular studies were abnormal again and he has had previous lower extremity ulcers with significant delayed healing. He saw Dr. Beck and angiogram is planned. I answered all of his questions. To return to the wound healing center in [address] Cifuentes, or call sooner if there are any questions or concerns.
--- NOTE | 2019-01-07 14:23 | PN.PCM_ITS ---
(1) Walking difficulty due to ankle and foot Status: Chronic Current Visit: No Code(s): R26.2 - Difficulty in walking, not elsewhere classified (2) Osteomyelitis of left foot Status: Chronic Current Visit: No Code(s): M86.9 - Osteomyelitis, unspecified (3) Type 2 diabetes mellitus with diabetic polyneuropathy Status: Chronic Current Visit: No Code(s): E11.42 - Type 2 diabetes mellitus with diabetic polyneuropathy (4) PVD (peripheral vascular disease) Status: Chronic Current Visit: No Code(s): I73.9 - Peripheral vascular disease, unspecified (5) Chronic ulcer of left foot with fat layer exposed Status: Chronic Current Visit: No Code(s): L97.522 - Non-pressure chronic ulcer of other part of left foot with fat layer exposed (6) Delayed wound healing Status: Chronic Current Visit: No Code(s): T14.8XXD - Other injury of unspecified body region, subsequent encounter (7) Malnutrition Status: Chronic Current Visit: No Code(s): E46 - Unspecified protein-calorie malnutrition Type of Wound Chief Complaint: Left heel ulcer History of Wound: This 73-year-old male with multiple comorbidities is seen today for left plantar heel ulcer. He is concurrently being treated for a neglected left Achilles tendon rupture with CAM Walker immobilization and heel lift. He denies fever, chill, nausea, vomiting. He did have previous claudication symptoms. He recently had a versa jet debridement and bone biopsy performed with Dr. Griffin in the operating room and was started on an extended IV antibiotic course for treatment of calcaneus osteomyelitis. He is doing much better and the redness and odor have resolved. He continues to remain nonweightbearing. He he recently completed a vascular surgery consultation Dr. Beck who recommends further work-up with angiogram. This is still in the process of being scheduled. He has been compliant with wound VAC and home health has been helping him. Progress of Wound: Ulcer site stable. No signs of local infection. - Physical Exam Vital Signs Temp Pulse Resp BP 97.1 F L 90 18 129/78 H 01/07/19 13:12 01/07/19 13:12 01/07/19 13:12 01/07/19 13:12 General: Alert, Oriented x3, Cooperative, No apparent distress Extremities: Capillary Refill Less than 3 Seconds, No Calf Tenderness - Negative Abhishek and Riwin signs bilateral, Diminished Peripheral Pulses, Edema, - - No pa in to the Achilles tendon of the left lower extremity today again Skin: Ulcer/ Wound - No purulence, erythema, streaking, odor, infection. There is no necrosis. There is exposed deep periosteal tissue and plantar fascial tissue visualized from the plantar ulcer site. The peripheral skin is hairless and atrophic. Wound Measurements and Assessment WC - Nurse 1 - General Ulcer Measurement Start: 12/30/18 10:15 Freq: Status: Active Protocol: Activity Type Activity Date Activity User E-Sign Co-Sign Detail Recorded Client Recorded Date Recorded By Document 01/07/19 13:12 RB [id number] 01/07/19 13:32 RB 01/07/19 13:12 Wound Center Nurse 1 [Ulcer Assessment] #2 L Med Heel -Combined with other wound No -Current Size (cm) - Length 2.3 -Current Size (cm) - Width 1 -Current Size (cm) - Depth 0.9 -Total Square Cm 2.3 -Tunneling No -Undermining/Tunneling No -Circular Undermining No -Exudate Amt Medium -Exudate Type Serosanguineous -Wound Margin Thickened & Rolled Under -Granulation Amt Large (67-100%) -Granulation Quality [place] -Slough/Fibrin Yes -Necrosis Amt Small (1-33%) -Necrotic Tissue Type Adherent Slough -Structure Exposed N/A -Texture (Emily-wound Skin Appearance) Assessed -Moisture (Emily-wound Skin Appearance Assessed ) -Color (Emily-wound Skin Appearance) Assessed Erythema -Temperature (Emily-wound Skin No Abnormality Appearance) (Pt Warm) -Tenderness on Palpation (Emily-wound No Skin Appearance) -Ulcer Cleansing Wound Cleanser -Foul Odor after Cleansing No -Anesthetic Used 4% Lidocaine Solution #1 Left Heel -Combined with other wound No -Current Size (cm) - Length 1.5 -Current Size (cm) - Width 2.7 -Current Size (cm) - Depth 1.4 -Total Square Cm 4.05 -Tunneling No -Undermining/Tunneling No -Circular Undermining No -Exudate Amt Small -Exudate Type Serosanguineous -Wound Margin Thickened & Rolled Under -Granulation Amt Large (67-100%) -Granulation Quality [place] -Slough/Fibrin Yes -Necrosis Amt Small (1-33%) -Necrotic Tissue Type Adherent Slough -Structure Exposed N/A -Texture (Emily-wound Skin Appearance) Assessed -Moisture (Emily-wound Skin Appearance Assessed ) -Color (Emily-wound Skin Appearance) Assessed Erythema -Temperature (Emily-wound Skin No Abnormality Appearance) (Pt Warm) -Tenderness on Palpation (Emily-wound No Skin Appearance) -Ulcer Cleansing Wound Cleanser -Foul Odor after Cleansing No -Anesthetic Used 4% Lidocaine Solution [Edema Assessment] -Lower Limb Edema Present Yes -Left Calf (cm) 33.5 -Left Ankle (cm) 23 WC - Nurse 2 - General Ulcer CM Notes Start: 12/30/18 10:15 Freq: Status: Active Protocol: Activity Type Activity Date Activity User E-Sign Co-Sign Detail Recorded Client Recorded Date Recorded By Document 01/07/19 13:42 AN [id number] 01/07/19 13:45 AN 01/07/19 13:42 Wound Center Nurse 2 [Procedure/Treatment] #2 L Med Heel -Time 13:42 -Correct Patient Yes -Correct Side, Site, Position Yes -Correct Procedure Yes -Procedure Performed Yes -Type of Procedure Debridement -Clinical Debridement Subcutaneous -Post Debridement Size (cm) - Length 2.4 -Post Debridement Size (cm) - Width 1.5 -Post Debridement Size (cm) - Depth 0.6 -Total Square Cm 3.60 -Wound/Ulcer Outcome Not Healed -Ulcer Cleansing Rinsed/ Irrigated with Saline -Foul Odor after Cleansing No -Bioengineered Tissue No -Bleeding Controlled with Pressure -Offloading Yes -Type of Offloading Camwalker -Treatment Response Procedure Tolerated Well #1 Left Heel -Time 13:43 -Correct Patient Yes -Correct Side, Site, Position Yes -Correct Procedure Yes -Procedure Performed Yes -Type of Procedure Debridement -Clinical Debridement Subcutaneous -Post Debridement Size (cm) - Length 1.7 -Post Debridement Size (cm) - Width 2.9 -Post Debridement Size (cm) - Depth 1.3 -Total Square Cm 4.93 -Wound/Ulcer Outcome Not Healed -Ulcer Cleansing Rinsed/ Irrigated with Saline -Foul Odor after Cleansing No -Bioengineered Tissue No -Bleeding Controlled with Pressure -Type of Offloading Knee Walker -Treatment Response Procedure Tolerated Well [See Physician Procedure note for Specifics] Pain Scale: 0-10 Numeric [Pain] -Is Patient Pain Free? Yes Musculoskeletal: No Tenderness to Palpation of Joints or Extremities, No Muscle Wasting, - - No pain with manipulation of ulcer site Neurological: - - Lack of normal epicritic sensation to light touch Psych/Mental Status: Normal Affect, Appropriate Debridement Note Post-Debridement Measurements/Treatment WC - Nurse 2 - General Ulcer CM Notes Start: 12/30/18 10:15 Freq: Status: Active Protocol: Activity Type Activity Date Activity User E-Sign Co-Sign Detail Recorded Client Recorded Date Recorded By Document 12/30/18 10:30 AN [id number] 12/30/18 10:35 AN Document 01/07/19 13:42 AN [id number] 01/07/19 13:45 AN 12/30/18 01/07/19 10:30 13:42 Wound Center Nurse 2 #2 L Med Heel -Time 10:34 13:42 -Correct Patient Yes Yes -Correct Side, Site, Position Yes Yes -Correct Procedure Yes Yes -Procedure Performed Yes Yes -Type of Procedure Debridement Debridement -Clinical Debridement Subcutaneous Subcutaneous -Post Debridement Size (cm) - Length 2.6 2.4 -Post Debridement Size (cm) - Width 1.1 1.5 -Post Debridement Size (cm) - Depth 0.6 0.6 -Total Square Cm 2.86 3.60 -Wound/Ulcer Outcome Not Healed Not Healed -Ulcer Cleansing Rinsed/ Irrigated with Saline -Foul Odor after Cleansing No -Bioengineered Tissue No -Bleeding Controlled with Pressure Pressure -Offloading Yes Yes -Type of Offloading Camwalker -Treatment Response Procedure Procedure Tolerated Well Tolerated Well #1 Left Heel -Time 10:34 13:43 -Correct Patient Yes Yes -Correct Side, Site, Position Yes Yes -Correct Procedure Yes Yes -Procedure Performed Yes Yes -Type of Procedure Debridement Debridement -Clinical Debridement Subcutaneous Subcutaneous -Post Debridement Size (cm) - Length 1.7 1.7 -Post Debridement Size (cm) - Width 3.1 2.9 -Post Debridement Size (cm) - Depth 1.4 1.3 -Total Square Cm 5.27 4.93 -Wound/Ulcer Outcome Not Healed Not Healed -Ulcer Cleansing Rinsed/ Rinsed/ Irrigated with Irrigated with Saline Saline -Foul Odor after Cleansing No No -Bioengineered Tissue No -Bleeding Controlled with Pressure Pressure -Offloading Yes -Type of Offloading Knee Walker -Treatment Response Procedure Procedure Tolerated Well Tolerated Well Pain Scale: 0-10 Numeric Is Patient Pain Free? Yes Yes Wound debrided: Plantar heel Laterality: Left Type of Debridement: Excisional debridement Anesthesia Used: 4% Lidocaine Solution Depth: in the subcutaneous layer Percentage of wound debrided: 100 Instrument Used: #15 blade Tissue Removed: Fibrous tissue, devitalized subcutaneous tissue, biofilm, slough Severity: Fat Layer Exposed Amount of bleeding with debridement: Mild Bleeding Controlled with: Pressure Patient tolerated procedure well - Additional Wound Wound debrided: Medial heel Laterality: Left Type of Debridement: Excisional debridement Anesthesia Used: 4% Lidocaine Solution Depth: in the subcutaneous layer Percentage of wound debrided: 100 Instrument Used: #15 blade Tissue Removed: Fibrous tissue, devitalized subcutaneous tissue, biofilm, slough Severity: Fat Layer Exposed Amount of bleeding with debridement: Mild Bleeding Controlled with: Pressure Patient tolerated procedure: Patient tolerated procedure well Assessment/Plan Assessment: Left heel ulcer with fat layer exposed, no infection. Left Achilles tendon rupture improving. Peripheral vascular disease. Diabetes with neuropathy. Malnutrition. Other comorbidities. Walking difficulty Plan: Patient was examined and evaluated today as courtesy visit for Dr. Cifuentes. I reviewed and discussed his case. Subcutaneous excisional debridement was performed as noted in the clinical panel. He has clinical resolution of infection and is status post recent debridement. He also continues on IV antibiotics via PICC line under the management of infectious disease. He understands this is a staged comprehensive wound healing plan and he is still at risk for limb loss. To continue strict offloading by wearing a Cam walking boot and using a knee roller, crutches, a walker to keep weight off of the site. Compliance was discussed. He understands this will significantly impair his h ealing process and he is at risk for limb loss. It is noted his noninvasive vascular studies were abnormal again and he has had previous lower extremity ulcers with significant delayed healing. He saw Dr. Beck and angiogram is planned. I answered all of his questions. To return to the wound healing center in [address] Cifuentes, or call sooner if there are any questions or concerns.
[2019-01-13 13:57] VITALS: BP 119/67; PULSE 100; RESP 18; TEMP 36.6; BMI 28.3
--- NOTE | 2019-01-13 14:33 | PN.PCM_ITS ---
(1) Chronic ulcer of left foot with fat layer exposed Status: Chronic Current Visit: Yes Code(s): L97.522 - Non-pressure chronic ulcer of other part of left foot with fat layer exposed (2) Walking difficulty due to ankle and foot Status: Chronic Current Visit: Yes Code(s): R26.2 - Difficulty in walking, not elsewhere classified (3) Type 2 diabetes mellitus with diabetic polyneuropathy Status: Chronic Current Visit: Yes Code(s): E11.42 - Type 2 diabetes mellitus with diabetic polyneuropathy (4) PVD (peripheral vascular disease) Status: Chronic Current Visit: Yes Code(s): I73.9 - Peripheral vascular di sease, unspecified (5) Delayed wound healing Status: Chronic Current Visit: Yes Code(s): T14.8XXD - Other injury of unspecified body region, subsequent encounter (6) Malnutrition Status: Chronic Current Visit: Yes Code(s): E46 - Unspecified protein- calorie malnutrition (7) Osteomyelitis of left foot Status: Chronic Current Visit: Yes Code(s): M86.9 - Osteomyelitis, unspecified Type of Wound Date of Service: 01/13/19 Chief Complaint: Left heel ulcer History of Wound: This 73-year-old male with multiple comorbidities is seen today for left plantar heel ulcer. He is concurrently being treated for a neglected left Achilles tendon rupture with CAM Walker immobilization and heel lift. He denies fever, chill, nausea, vomiting. He did have previous claudication symptoms. He recently had a versa jet debridement and bone biopsy performed with Dr. Griffin in the operating room and was started on an extended IV antibiotic course for treatment of calcaneus osteomyelitis. He is doing much better and the redness and odor have resolved. He continues to remain nonweightbearing. He he recently completed a vascular surgery consultation Dr. Beck who recommends further work-up with angiogram. This is still in the p rocess of being scheduled. He has been compliant with wound VAC and home health has been helping him. Progress of Wound: Ulcer site stable. No signs of local infection. - Physical Exam Vital Signs Temp Pulse Resp BP 97.9 F 100 18 119/67 01/13/19 13:57 01/13/19 13:57 01/13/19 13:57 01/13/19 13:57 General: Alert, Oriented x3, Cooperative, No apparent distress Extremities: Capillary Refill Less than 3 Seconds, No Calf Tenderness - negative bharti and gusman left, Diminished Peripheral Pulses, Edema Skin: Ulcer/ Wound - No purulence, erythema, streaking, odor, or infection left foot. exposed plantar fascia deep tissue layer noted to plantar heel ulcer site Wound Measurements and Assessment WC - Nurse 1 - General Ulcer Measurement Start: 12/30/18 10:15 Freq: Status: Active Protocol: Activity Type Activity Date Activity User E-Sign Co-Sign Detail Recorded Client Recorded Date Recorded By Document 01/13/19 13:57 [facility] [id number] 01/13/19 14:12 [facility] 01/13/19 13:57 Wound Center Nurse 1 [Ulcer Assessment] #2 L Med Heel -Combined with other wound No -Current Size (cm) - Length 2.4 -Current Size (cm) - Width 1.1 -Current Size (cm) - Depth 0.6 -Total Square Cm 2.64 -Photo Taken No -Epithelialization None Present -Tunneling No -Undermining/Tunneling No -Circular Undermining No -Exudate Amt Small -Exudate Type Serosanguineous -Wound Margin Thickened -Granulation Amt Large (67-100%) -Granulation Quality Red -Slough/Fibrin No -Necrosis Amt None Present (0 %) -Texture (Emily-wound Skin Appearance) Assessed,Callus ,Scarring -Moisture (Emily-wound Skin Appearance Assessed, ) Maceration -Color (Emily-wound Skin Appearance) Assessed, Erythema,Palor -Temperature (Emily-wound Skin No Abnormality Appearance) (Pt Warm) -Tenderness on Palpation (Emily-wound Yes Skin Appearance) -Ulcer Cleansing Wound Cleanser -Foul Odor after Cleansing No -Anesthetic Used 5% Lidocaine Gel #1 Left Heel -Combined with other wound No -Current Size (cm) - Length 1.4 -Current Size (cm) - Width 2.2 -Current Size (cm) - Depth 1.3 -Total Square Cm 3.08 -Photo Taken No -Epithelialization None Present -Tunneling No -Undermining/Tunneling No -Circular Undermining No -Exudate Amt Small -Exudate Type Serosanguineous -Wound Margin Thickened -Granulation Amt Medium (34-66%) -Granulation Quality Red -Slough/Fibrin Yes -Necrosis Amt Small (1-33%) -Necrotic Tissue Type Adherent Slough -Texture (Emily-wound Skin Appearance) Assessed,Callus ,Scarring -Moisture (Emily-wound Skin Appearance Assessed, ) Maceration,Dry/ Scaly -Color (Emily-wound Skin Appearance) Assessed, Erythema,Palor -Temperature (Emily-wound Skin No Abnormality Appearance) (Pt Warm) -Tenderness on Palpation (Emily-wound Yes Skin Appearance) -Ulcer Cleansing Wound Cleanser -Foul Odor after Cleansing No -Anesthetic Used 5% Lidocaine Gel WC - Nurse 2 - General Ulcer CM Notes Start: 12/30/18 10:15 Freq: Status: Active Protocol: Activity Type Activity Date Activity User E-Sign Co-Sign Detail Recorded Client Recorded Date Recorded By Document 01/13/19 14:24 AN [id number] 01/13/19 14:30 AN 01/13/19 14:24 Wound Center Nurse 2 [Procedure/Treatment] #2 L Med Heel -Time 14:26 -Correct Patient Yes -Correct Side, Site, Position Yes -Correct Procedure Yes -Procedure Performed Yes -Type of Procedure Debridement -Clinical Debridement Subcutaneous -Post Debridement Size (cm) - Length 2.5 -Post Debridement Size (cm) - Width 1.2 -Post Debridement Size (cm) - Depth 0.6 -Total Square Cm 3.00 -Wound/Ulcer Outcome Not Healed -Ulcer Cleansing Rinsed/ Irrigated with Saline -Foul Odor after Cleansing No -Bioengineered Tissue Yes -Type of bioengineered Tissue EPICORD -Expiration Date 12/26/22 -Product Lot Number [id number] -Percent Used 50 -Offloading Yes -Type of Offloading Knee Walker -Treatment Response Procedure Tolerated Well #1 Left Heel -Time 14:28 -Correct Patient Yes -Correct Side, Site, Position Yes -Correct Procedure Yes -Procedure Performed Yes -Type of Procedure Debridement -Clinical Debridement Subcutaneous -Post Debridement Size (cm) - Length 1.5 -Post Debridement Size (cm) - Width 2.3 -Post Debridement Size (cm) - Depth 1.3 -Total Square Cm 3.45 -Wound/Ulcer Outcome Amputation -Ulcer Cleansing Rinsed/ Irrigated with Saline -Foul Odor after Cleansing No -Bioengineered Tissue Yes -Type of bioengineered Tissue EPICORD -Expiration Date 12/26/22 -Product Lot Number [id number] -Percent Used 50 -Bleeding Controlled with Pressure -Offloading Yes -Type of Offloading Knee Walker -Treatment Response Procedure Tolerated Well [See Physician Procedure note for Specifics] Pain Scale: 0-10 Numeric [Pain] -Is Patient Pain Free? Yes Musculoskeletal: No Tenderness to Palpation of Joints or Extremities, Muscle Wasting Neurological: - - Lack of normal epicritic sensation light touch consistent with neuropathy Psych/Mental Status: Normal Affect, Appropriate Debridement Note Post-Debridement Measurements/Treatment WC - Nurse 2 - General Ulcer CM Notes Start: 12/30/18 10:15 Freq: Status: Active Protocol: Activity Type Activity Date Activity User E-Sign Co-Sign Detail Recorded Client Recorded Date Recorded By Document 12/30/18 10:30 AN [id number] 12/30/18 10:35 AN Document 01/07/19 13:42 AN [id number] 01/07/19 13:45 AN Document 01/13/19 14:24 AN [id number] 01/13/19 14:30 AN 12/30/18 01/07/19 01/13/19 10:30 13:42 14:24 Wound Center Nurse 2 #2 L Med Heel -Time 10:34 13:42 14:26 -Correct Patient Yes Yes Yes -Correct Side, Site, Position Yes Yes Yes -Correct Procedure Yes Yes Yes -Procedure Performed Yes Yes Yes -Type of Procedure Debridement Debridement Debridement -Clinical Debridement Subcutaneous Subcutaneous Subcutaneous -Post Debridement Size (cm) - Length 2.6 2.4 2.5 -Post Debridement Size (cm) - Width 1.1 1.5 1.2 -Post Debridement Size (cm) - Depth 0.6 0.6 0.6 -Total Square Cm 2.86 3.60 3.00 -Wound/Ulcer Outcome Not Healed Not Healed Not Healed -Ulcer Cleansing Rinsed/ Rinsed/ Irrigated with Irrigated with Saline Saline -Foul Odor after Cleansing No No -Bioengineered Tissue No Yes -Type of bioengineered Tissue EPICORD -Expiration Date 12/26/22 -Product Lot Number [id number] -Percent Used 50 -Bleeding Controlled with Pressure Pressure -Offloading Yes Yes Yes -Type of Offloading Camwalker Knee Walker -Treatment Response Procedure Procedure Procedure Tolerated Well Tolerated Well Tolerated Well #1 Left Heel -Time 10:34 13:43 14:28 -Correct Patient Yes Yes Yes -Correct Side, Site, Position Yes Yes Yes -Correct Procedure Yes Yes Yes -Procedure Performed Yes Yes Yes -Type of Procedure Debridement Debridement Debridement -Clinical Debridement Subcutaneous Subcutaneous Subcutaneous -Post Debridement Size (cm) - Length 1.7 1.7 1.5 -Post Debridement Size (cm) - Width 3.1 2.9 2.3 -Post Debridement Size (cm) - Depth 1.4 1.3 1.3 -Total Square Cm 5.27 4.93 3.45 -Wound/Ulcer Outcome Not Healed Not Healed Amputation -Ulcer Cleansing Rinsed/ Rinsed/ Rinsed/ Irrigated with Irrigated with Irrigated with Saline Saline Saline -Foul Odor after Cleansing No No No -Bioengineered Tissue No Yes -Type of bioengineered Tissue EPICORD -Expiration Date 12/26/22 -Product Lot Number [id number] -Percent Used 50 -Bleeding Controlled with Pressure Pressure Pressure -Offloading Yes Yes -Type of Offloading Knee Walker Knee Walker -Treatment Response Procedure Procedure Procedure Tolerated Well Tolerated Well Tolerated Well Pain Scale: 0-10 Numeric Is Patient Pain Free? Yes Yes Yes Wound debrided: plantar heel Laterality: Left Wound Grade/Stage: grade 3 Type of Debridement: Excisional debridement Anesthesia Used: 5% Lidocaine Gel Depth: in the subcutaneous layer Percentage of wound debrided: 100 Instrument Used: #15 blade Tissue Removed: fibrous, devitalized subcutaneous, biofilm, slough Severity: Fat Layer Exposed Amount of bleeding with debridement: Mild Bleeding Controlled with: Pressure Patient tolerated procedure well - Additional Wound Wound debrided: medial heel Laterality: Left Type of Debridement: Excisional debridement Anesthesia Used: 5% Lidocaine Gel Depth: in the subcutaneous layer Percentage of wound debrided: 100 Instrument Used: #15 blade Tissue Removed: fibrous, devitalized subcutaneous, biofilm, slough Severity: Fat Layer Exposed Amount of bleeding with debridement: Mild Bleeding Controlled with: Pressure Patient tolerated procedure: Patient tolerated procedure well Assessment/Plan Active Problems Walking difficulty due to ankle and foot (Chronic) Osteomyelitis of left foot (Chronic) Type 2 diabetes mellitus with diabetic polyneuropathy (Chronic) PVD (peripheral vascular disease) (Chronic) Chronic ulcer of left foot with fat layer exposed (Chronic) Delayed wound healing (Chronic) Malnutrition (Chronic) Assessment: Left heel ulcer with fat layer exposed, no infection. Left Achilles tendon rupture improving. Peripheral vascular disease. Diabetes with neuropathy. Malnutrition. Other comorbidities. Walking difficulty Plan: Patient was examined and evaluated today. I reviewed and discussed his case. Subcutaneous excisional debridement was performed as noted in the clinical panel. He has clinical resolution of infection and is status post recent debridement. Advance wound healing product, epi cord was applied today according standard protocol after verbal consent was obtained. He tolerated this well. This was secured in place with a wound veil and Steri-Strips. A secondary dressing was applied and he was advised to leave this intact until follow-up in the next week. Also the wound VAC was applied and set on continuous 150 mmHg. He also continues on IV antibiotics via PICC line under the management of infectious disease. He understands this is a staged comprehensive wound healing plan and he is still at risk for limb loss. To continue strict offloading by wearing a Cam walking boot and using a knee roller, crutches, a walker to keep weight off of the site. Compliance was discussed. He understands this will significantly impair his healing process and he is at risk for limb loss. It is noted his noninvasive vascular studies were abnormal again and he has had previous lower extremity ulcers with significant delayed healing. He saw Dr. Beck and angiogram is planned; to proceed forward as advised. I answered all of his questions.
[2019-01-20 08:42] VITALS: BP 143/74; PULSE 95; RESP 16; TEMP 36.3; BMI 28.3
--- NOTE | 2019-01-20 09:43 | PN.PCM_ITS ---
(1) Chronic ulcer of left foot with fat layer exposed Status: Chronic Current Visit: Yes Code(s): L97.522 - Non-pressure chronic ulcer of other part of left foot with fat layer exposed (2) Walking difficulty due to ankle and foot Status: Chronic Current Visit: Yes Code(s): R26.2 - Difficulty in walking, not elsewhere classified (3) Type 2 diabetes mellitus with diabetic polyneuropathy Status: Chronic Current Visit: Yes Code(s): E11.42 - Type 2 diabetes mellitus with diabetic polyneuropathy (4) PVD (peripheral vascular disease) Status: Chronic Current Visit: Yes Code(s): I73.9 - Peripheral vascular di sease, unspecified (5) Delayed wound healing Status: Chronic Current Visit: Yes Code(s): T14.8XXD - Other injury of unspecified body region, subsequent encounter (6) Malnutrition Status: Chronic Current Visit: Yes Code(s): E46 - Unspecified protein- calorie malnutrition (7) Osteomyelitis of left foot Status: Chronic Current Visit: Yes Code(s): M86.9 - Osteomyelitis, unspecified Type of Wound Date of Service: 01/20/19 Chief Complaint: Left heel ulcer History of Wound: This 73-year-old male with multiple comorbidities is seen today for left plantar heel ulcer. He is concurrently being treated for a neglected left Achilles tendon rupture with CAM Walker immobilization and heel lift. He denies fever, chill, nausea, vomiting. He did have previous claudication symptoms. He recently had a versa jet debridement and bone biopsy performed with Dr. Griffin in the operating room and was started on an extended IV antibiotic course for treatment of calcaneus osteomyelitis. He is doing much better and the redness and odor have resolved. He continues to remain nonweightbearing. He he recently completed a vascular surgery consultation Dr. Beck who recommends further work-up with angiogram. This is still in the p rocess of being scheduled. He has been compliant with wound VAC and home health has been helping him. He had an epi cord applied. Progress of Wound: Ulcer site stable. No signs of local infection. - Physical Exam Vital Signs Temp Pulse Resp BP 97.4 F L 95 16 143/74 H 01/20/19 08:42 01/20/19 08:42 01/20/19 08:42 01/20/19 08:42 General: Alert, Oriented x3, Cooperative, No apparent distress Extremities: No cyanosis, Capillary Refill Less than 3 Seconds, No Calf T enderness - Negative Abhishek and Irwin left, Diminished Peripheral Pulses, Edema Skin: Ulcer/ Wound - epi cord is incorporating well to both ulcer sites with a wound veil and Steri-Strips intact. The peripheral skin is hairless and atrophic. There is no purulence, odor, erythema, streaking. There is some ecchymosis and excoriation to the medial left lower leg at the application of the wound VAC bridge and caution will be taken to avoid this. Wound Measurements and Assessment WC - Nurse 1 - General Ulcer Measurement Start: 12/30/18 10:15 Freq: Status: Active Protocol: Activity Type Activity Date Activity User E-Sign Co-Sign Detail Recorded Client Recorded Date Recorded By Document 01/20/19 08:42 [id number] 01/20/19 09:05 01/20/19 08:42 Wound Center Nurse 1 [Ulcer Assessment] #2 L Med Heel -Combined with other wound No -Structure Exposed N/A -Texture (Emily-wound Skin Appearance) No Abnormality -Moisture (Emily-wound Skin Appearance Maceration ) -Color (Emily-wound Skin Appearance) Palor -Temperature (Emily-wound Skin No Abnormality Appearance) (Pt Warm) -Tenderness on Palpation (Emily-wound No Skin Appearance) -Ulcer Cleansing Not Cleansed Musculoskeletal: No Tenderness to Palpation of Joints or Extremities, Muscle Wasting Neurological: - - lack of sensation Psych/Mental Status: Normal Affect, Appropriate Debridement Note Post-Debridement Measurements/Treatment WC - Nurse 2 - General Ulcer CM Notes Start: 12/30/18 10:15 Freq: Status: Active Protocol: Activity Type Activity Date Activity User E-Sign Co-Sign Detail Recorded Client Recorded Date Recorded By Document 12/30/18 10:30 AN [id number] 12/30/18 10:35 AN Document 01/07/19 13:42 AN [id number] 01/07/19 13:45 AN Document 01/13/19 14:24 AN [id number] 01/13/19 14:30 AN 12/30/18 01/07/19 01/13/19 10:30 13:42 14:24 Wound Center Nurse 2 #2 L Med Heel -Time 10:34 13:42 14:26 -Correct Patient Yes Yes Yes -Correct Side, Site, Position Yes Yes Yes -Correct Procedure Yes Yes Yes -Procedure Performed Yes Yes Yes -Type of Procedure Debridement Debridement Debridement -Clinical Debridement Subcutaneous Subcutaneous Subcutaneous -Post Debridement Size (cm) - Length 2.6 2.4 2.5 -Post Debridement Size (cm) - Width 1.1 1.5 1.2 -Post Debridement Size (cm) - Depth 0.6 0.6 0.6 -Total Square Cm 2.86 3.60 3.00 -Wound/Ulcer Outcome Not Healed Not Healed Not Healed -Ulcer Cleansing Rinsed/ Rinsed/ Irrigated with Irrigated with Saline Saline -Foul Odor after Cleansing No No -Bioengineered Tissue No Yes -Type of bioengineered Tissue EPICORD -Expiration Date 12/26/22 -Product Lot Number [id number] -Percent Used 50 -Bleeding Controlled with Pressure Pressure -Offloading Yes Yes Yes -Type of Offloading Camwalker Knee Walker -Treatment Response Procedure Procedure Procedure Tolerated Well Tolerated Well Tolerated Well #1 Left Heel -Time 10:34 13:43 14:28 -Correct Patient Yes Yes Yes -Correct Side, Site, Position Yes Yes Yes -Correct Procedure Yes Yes Yes -Procedure Performed Yes Yes Yes -Type of Procedure Debridement Debridement Debridement -Clinical Debridement Subcutaneous Subcutaneous Subcutaneous -Post Debridement Size (cm) - Length 1.7 1.7 1.5 -Post Debridement Size (cm) - Width 3.1 2.9 2.3 -Post Debridement Size (cm) - Depth 1.4 1.3 1.3 -Total Square Cm 5.27 4.93 3.45 -Wound/Ulcer Outcome Not Healed Not Healed Amputation -Ulcer Cleansing Rinsed/ Rinsed/ Rinsed/ Irrigated with Irrigated with Irrigated with Saline Saline Saline -Foul Odor after Cleansing No No No -Bioengineered Tissue No Yes -Type of bioengineered Tissue EPICORD -Expiration Date 12/26/22 -Product Lot Number [id number] -Percent Used 50 -Bleeding Controlled with Pressure Pressure Pressure -Offloading Yes Yes -Type of Offloading Knee Walker Knee Walker -Treatment Response Procedure Procedure Procedure Tolerated Well Tolerated Well Tolerated Well Pain Scale: 0-10 Numeric Is Patient Pain Free? Yes Yes Yes Wound debrided: plantar heel Laterality: Left Wound Grade/Stage: grade 3 No debridement was completed today - epicord is incorporating and additional application and debridement will be considered next week to both sites - Additional Wound Wound debrided: medial heel Laterality: Left Wound Grade/Stage: grade 1 Patient tolerated procedure: - - not debrided today Assessment/Plan Active Problems Walking difficulty due to ankle and foot (Chronic) Osteomyelitis of left foot (Chronic) Type 2 diabetes mellitus with diabetic polyneuropathy (Chronic) PVD (peripheral vascular disease) (Chronic) Chronic ulcer of left foot with fat layer exposed (Chronic) Delayed wound healing (Chronic) Malnutrition (Chronic) Assessment: Left heel ulcer with fat layer exposed, no infection. Left Achilles tendon rupture improving. Peripheral vascular disease. Diabetes with neuropathy. Malnutrition. Other comorbidities. Walking difficulty Plan: Patient was examined and evaluated today. I reviewed and discussed his case. The epi cord is incorporating well and was left intact with wound veil and Steri-Strips. Additional debridement and advanced wound healing product application will be considered again next week. He has clinical resolution of infection. A secondary dressing was applied and he was advised to leave this intact until follow-up in the next week. Also the wound VAC was applied and set on continuous 150 mmHg. He also continues on IV antibiotics via PICC line under the management of infectious disease. He understands this is a staged comprehensive wound healing plan and he is still at risk for limb loss. To continue strict offloading by wearing a Cam walking boot and using a knee roller, crutches, a walker to keep weight off of the site. Compliance was discussed. He understands this will significantly impair his healing process and he is at risk for limb loss. It is noted his noninvasive vascular studies were abnormal again and he has had previous lower extremity ulcers with significant delayed healing. He saw Dr. Beck and angiogram is planned; to proceed forward as advised. He is tentatively scheduled for an angiogram with potential intervention on February 03, 2019. I answered all of his questions.
== END 2019-01-24 23:59 ==
LOC: WC 09:00
PROVIDERS: Family Provider Family Medicine; PCP Family Medicine; Referring Provider Podiatrist; Visit Provider Podiatrist
DX: E11.621 Type 2 diabetes mellitus with foot ulcer (principal); E11.42 Type 2 diabetes mellitus with diabetic polyneuropathy; E11.51 Type 2 diabetes mellitus with diabetic peripheral angiopathy without gangrene; L97.422 Non-pressure chronic ulcer of left heel and midfoot with fat layer exposed; E11.69 Type 2 diabetes mellitus with other specified complication; M86.8X7 Other osteomyelitis, ankle and foot; R26.2 Difficulty in walking, not elsewhere classified
CPT/HCPCS: 11042; 15275; 97605; 97606; 99212; Q4187; G0463

== ENCOUNTER 2019-01-27 10:57 | Outpatient (RCR) | payer MEDICARE, SELFPAY ==
[2019-01-27 09:38] VITALS: BMI 28.3
[2019-01-27 11:59] LABS: Hematocrit 36.3 % (40-54); Hemoglobin 12.1 g/dl (13.0-16.5); Mean Corp Hgb Conc 33.3 g/gl (32-36); Mean Corpuscular Hgb 30.2 pg (27.0-32.0); Mean Corpuscular Volume 90.5 fL (80-94); Mean Platelet Vol. 9.4 fl (6.2-12.0); Platelet Count 237 K/mm3 (150-450); RBC Distribution Width CV 13.9 % (11.6-14.6); RBC Distribution Width SD 45.8 fl (35.1-43.9); Red Blood Count 4.01 M/mm3 (4.6-6.2); White Blood Count 7.7 K/mm3 (4.4-11.0)
[2019-01-27 12:06] LABS: Scan Indicated on CBC? Y/N NO
[2019-01-27 12:24] LABS: AST(SGOT) 23 U/L (15-37); Alanine Aminotransfer ALT/SGPT 22 U/L (16-61); Albumin, Serum 3.7 g/dL (3.2-5.0); Alkaline Phosphatase 31 U/L (45-117); Anion Gap 9 (5-15); BUN 22 mg/dL (7-18); Bilirubin, Direct 0.09 mg/dL (0.00-0.30); Calcium,Total 9.4 mg/dL (8.5-10.1); Chloride 103 mmol/L (98-107); Creatinine, Serum 0.88 mg/dL (0.70-1.30); EST Glomerular Filtration Rate 90 mL/min (>60); Est Glom Filt Rate - Afr Amer 109 mL/min (>60); Globulin 3.5 g/dL (2.2-4.2); Glucose 97 mg/dL (74-106); Potassium 4.4 mmol/L (3.5-5.1); Protein, Total 7.2 g/dL (6.4-8.2); Sodium Level 140 mmol/L (136-145)
== END 2019-02-24 17:17 | disposition home or self-care (01) ==
LOC: LAB 10:57
PROVIDERS: Family Provider Family Medicine; PCP Family Medicine; Referring Provider Podiatrist; Visit Provider Podiatrist
DX: E11.621 Type 2 diabetes mellitus with foot ulcer (principal); L97.422 Non-pressure chronic ulcer of left heel and midfoot with fat layer exposed; L97.322 Non-pressure chronic ulcer of left ankle with fat layer exposed; E11.51 Type 2 diabetes mellitus with diabetic peripheral angiopathy without gangrene; E11.42 Type 2 diabetes mellitus with diabetic polyneuropathy; R26.2 Difficulty in walking, not elsewhere classified
CPT/HCPCS: 15275; 36415; 80048; 80076; 85027; 97605; Q4187

== ENCOUNTER 2019-02-03 08:34 | Day surgery (SDC) | payer MEDICARE, SELFPAY ==
[2019-01-07 13:12] VITALS: BMI 28.3
[2019-02-02 07:24] VITALS: BMI 27.8
--- NOTE | 2019-02-03 11:22 | OP.PCM_ITS ---
Problem List (1) PVD (peripheral vascular disease) Status: Chronic Report of Operation Date of Procedure: 02/03/19 Pre-Operative Diagnosis: Healing ulcer with PAD Post-Operative Diagnosis: The same Surgery/Procedure Performed:: #1. Ultrasound-guided access retrograde right common femoral artery. 2. Left lower extremity angiogram with catheter placed into the peroneal and anterior tibial artery. 3. Balloon angioplasty of the peroneal artery through the tibioperoneal trunk with a 2.5 - 3 mm x 210 balloon. 4. Balloon angioplasty of the entire anterior tibial artery with a 2.5 - 3 mm x 210 balloon. 5. Closure was started close Type of Anesthesia:: Sedation,Conscious Description of Procedure: Patient brought to the Merchandise Supervisor. Underwent the appropriate timeout consent. Underwent sedation. Prepped and draped in a sterile fashion. We did ultrasound-guided access retrograde right common femoral artery. Put in a 5 [place] sheath. Gave 5000 units of heparin. We got up and over the bifurcation and put the catheter to the left external iliac artery. We did an angiogram from there showing the common femoral, profunda, and the SFA widely patent with good flow. We then put the quick cross further down the SFA and imaged from there. This showed the distal SFA through the popliteal was widely patent. We then imaged below the knee. The posterior tibial artery was occluded throughout. The tibioperoneal trunk and into the peroneal had segmental severe stenosis. The anterior tibial artery was patent proximally was occluded in the upper calf and then segmental disease down to the ankle. We then report the stiff Glidewire brought in a long 6 Algerian sheath. We then first got the Quick [place], Glidewire through the peroneal artery and confirmed in the distal peroneal with an angiogram. We put an 014 wire and then ballooned with a 2.5 x 3 mm x 210 balloon for over 3 minutes. This is from the distal peroneal through the tibioperoneal trunk and into the distal popliteal. Completion was markedly improved a great flow through this. There was an area of segmental stenosis but we left that intact is good flow through it. We then switched to the quick cross and Glidewire and got through the occlusion of the anterior tibial artery. Confirm we are in the distal anterior tibial artery and replaced the 014 wire. We then balloon from the popliteal through the entire anterior tibial artery with the same 2.5 x 3 mm x 210 balloon. We did 2 different inflations with this balloon in each for over 3 minutes. We did a completion angiogram that showed great flow now through the tibioperoneal trunk, peroneal and through the entire anterior tibial artery into the foot. We then removed out the sheath over a Glidewire put in a Star close and deployed with good hemostasis. Brought to recovery stable condition. Sedation: This 73-year-old gentleman underwent moderate sedation given by Dr. Kike Beck. He was monitored with EKG blood pressure and pulse ox for over the 30 minutes of the procedure. See the EMR for the complete record.
== END 2019-02-03 14:40 | disposition home or self-care (01) ==
LOC: CLSP 08:35
PROVIDERS: Family Provider Family Medicine; PCP Family Medicine; Referring Provider Surgery Vascular Surgery; Visit Provider Surgery Vascular Surgery
DX: I70.261 Atherosclerosis of native arteries of extremities with gangrene, right leg (principal); E11.9 Type 2 diabetes mellitus without complications; E78.00 Pure hypercholesterolemia, unspecified; I10 Essential (primary) hypertension; M19.90 Unspecified osteoarthritis, unspecified site; Z79.82 Long term (current) use of aspirin; Z79.84 Long term (current) use of oral hypoglycemic drugs; Z79.899 Other long term (current) drug therapy
CPT/HCPCS: 37228; 37232; 76937; 99152; 99153; J7040; Q9967; C1725; C1760; C1769; C1887; C1894

== ENCOUNTER 2019-02-24 10:00 | Outpatient (RCR) | payer MEDICARE, SELFPAY ==
[2019-01-25 00:47] VITALS: BP 143/74; PULSE 95; RESP 16; TEMP 36.3
[2019-01-27 09:38] VITALS: BP 100/60; PULSE 92; RESP 18; TEMP 36.4
--- NOTE | 2019-01-27 10:16 | PN.PCM_ITS ---
(1) Type 2 diabetes mellitus with diabetic polyneuropathy Status: Chronic Current Visit: Yes Code(s): E11.42 - Type 2 diabetes mellitus with diabetic polyneuropathy (2) Chronic ulcer of left foot with fat layer exposed Status: Chronic Current Visit: Yes Code(s): L97.522 - Non-pressure chronic ulcer of other part of left foot with fat layer exposed (3) Delayed wound healing Status: Chronic Current Visit: Yes Code(s): T14.8XXD - Other injury of unspecified body region, subsequent encounter (4) Malnutrition Status: Chronic Current Visit: Yes Code(s): E46 - Unspecified protein- calorie malnutrition (5) Peripheral vascular disease Status: Chronic Current Visit: Yes Code(s): I73.9 - Peripheral vascular disease, unspecified Type of Wound Date of Service: 01/27/19 Chief Complaint: Left heel ulcer History of Wound: This 73-year-old male with multiple comorbidities is seen today for left plantar heel ulcer. He is concurrently being treated for a neglected left Achilles tendon rupture with CAM Walker immobilization and heel lift. He denies fever, chill, nausea, vomiting. He did have previous claudication symptoms. He is going to complete his last dose of IV antibiotics today. He continues to remain nonweightbearing. He is scheduled for vascular intervention with Dr. Beck on February 03. He is kept the epi cord and wound VAC in place and his brother has been helping him at home. Progress of Wound: Improving - Physical Exam Vital Signs Temp Pulse Resp BP 97.6 F L 92 18 100/60 01/27/19 09:38 01/27/19 09:38 01/27/19 09:38 01/27/19 09:38 General: Alert, Oriented x3, Cooperative, No apparent distress HEENT: Atraumatic Extremities: No cyanosis, Capillary Refill Less than 3 Seconds, No Calf Tenderness, Diminished Peripheral Pulses, Edema Skin: Ulcer/ Wound - No purulence, erythema, streaking, odor, infection. Peripheral skin is hairless and atrophic there is no probe to bone. There is some exposed plantar fascia tissue still noted without necrosis. Wound Measurements and Assessment WC - Nurse 1 - General Ulcer Measurement Start: 01/27/19 09:38 Freq: Status: Active Protocol: Activity Type Activity Date Activity User E-Sign Co-Sign Detail Recorded Client Recorded Date Recorded By Document 01/27/19 09:38 RB [id number] 01/27/19 09:41 RB 01/27/19 09:38 Wound Center Nurse 1 [Ulcer Assessment] #2 L Med Heel -Combined with other wound No -Current Size (cm) - Length 2.6 -Current Size (cm) - Width 1.4 -Current Size (cm) - Depth 0.3 -Total Square Cm 3.64 -Tunneling No -Undermining/Tunneling No -Circular Undermining No -Exudate Amt Large -Exudate Type Serosanguineous -Wound Margin Thickened & Rolled Under -Granulation Amt Medium (34-66%) -Granulation Quality [place] -Slough/Fibrin Yes -Necrosis Amt Medium (34-66%) -Necrotic Tissue Type Adherent Slough -Texture (Emily-wound Skin Appearance) Assessed -Moisture (Emily-wound Skin Appearance Assessed, ) Maceration -Color (Emily-wound Skin Appearance) Assessed -Temperature (Emily-wound Skin No Abnormality Appearance) (Pt Warm) -Tenderness on Palpation (Emily-wound No Skin Appearance) -Ulcer Cleansing Wound Cleanser -Foul Odor after Cleansing No -Anesthetic Used 4% Lidocaine Solution #1 Left Heel -Combined with other wound No -Current Size (cm) - Length 1.3 -Current Size (cm) - Width 2.5 -Current Size (cm) - Depth 1.2 -Total Square Cm 3.25 -Tunneling No -Undermining/Tunneling No -Circular Undermining No -Exudate Amt Medium -Exudate Type Serosanguineous -Wound Margin Thickened & Rolled Under -Granulation Amt Medium (34-66%) -Granulation Quality [place] -Slough/Fibrin Yes -Necrosis Amt Medium (34-66%) -Necrotic Tissue Type Adherent Slough -Structure Exposed N/A -Texture (Emily-wound Skin Appearance) Assessed -Moisture (Emily-wound Skin Appearance Maceration ) -Color (Emily-wound Skin Appearance) Assessed -Temperature (Emily-wound Skin No Abnormality Appearance) (Pt Warm) -Tenderness on Palpation (Emily-wound No Skin Appearance) -Ulcer Cleansing Wound Cleanser -Foul Odor after Cleansing No -Anesthetic Used 4% Lidocaine Solution [Edema Assessment] -Lower Limb Edema Present Yes -Left Calf (cm) 33 -Left Ankle (cm) 22.5 WC - Nurse 2 - General Ulcer CM Notes Start: 01/27/19 09:38 Freq: Status: Active Protocol: Activity Type Activity Date Activity User E-Sign Co-Sign Detail Recorded Client Recorded Date Recorded By Document 01/27/19 09:53 GAGE [id number] 01/27/19 09:56 GAGE 01/27/19 09:53 Wound Center Nurse 2 [Procedure/Treatment] #2 L Med Heel -Time 09:54 -Correct Patient Yes -Correct Side, Site, Position Yes -Correct Procedure Yes -Procedure Performed Yes -Type of Procedure Debridement -Clinical Debridement Subcutaneous -Post Debridement Size (cm) - Length 2.8 -Post Debridement Size (cm) - Width 1.4 -Post Debridement Size (cm) - Depth 0.4 -Total Square Cm 3.92 -Wound/Ulcer Outcome Not Healed -Ulcer Cleansing Rinsed/ Irrigated with Saline -Foul Odor after Cleansing No -Bioengineered Tissue Yes -Type of bioengineered Tissue EPICORD -Expiration Date 07/28/23 -Product Lot Number [id number] -Percent Used 100 -Saline Lot Number [id number] -Bleeding Controlled with Pressure -Offloading Yes -Type of Offloading Knee Walker -Treatment Response Procedure Tolerated Well #1 Left Heel -Time 09:55 -Correct Patient Yes -Correct Side, Site, Position Yes -Correct Procedure Yes -Procedure Performed Yes -Type of Procedure Debridement -Clinical Debridement Subcutaneous -Post Debridement Size (cm) - Length 1.9 -Post Debridement Size (cm) - Width 2.8 -Post Debridement Size (cm) - Depth 1.1 -Total Square Cm 5.32 -Wound/Ulcer Outcome Not Healed -Ulcer Cleansing Rinsed/ Irrigated with Saline -Foul Odor after Cleansing No -Bioengineered Tissue Yes -Type of bioengineered Tissue EPICORD -Expiration Date 07/28/23 -Product Lot Number [id number] -Percent Used 100 -Saline Lot Number [id number] -Bleeding Controlled with Pressure -Offloading Yes -Type of Offloading Knee Walker -Treatment Response Procedure Tolerated Well [See Physician Procedure note for Specifics] Pain Scale: 0-10 Numeric [Pain] -Is Patient Pain Free? Yes Musculoskeletal: No Tenderness to Palpation of Joints or Extremities, Muscle Wasting, - - Compartments soft to palpate left lower extremity. Achilles is palpably intact clinically left Neurological: - - lack of epicritic sensation light touch consistent neuropathy left lower extremity Psych/Mental Status: Normal Affect, Appropriate Debridement Note Post-Debridement Measurements/Treatment WC - Nurse 2 - General Ulcer CM Notes Start: 01/27/19 09:38 Freq: Status: Active Protocol: Activity Type Activity Date Activity User E-Sign Co-Sign Detail Recorded Client Recorded Date Recorded By Document 01/27/19 09:53 GAGE [id number] 01/27/19 09:56 GAGE 01/27/19 09:53 Wound Center Nurse 2 #2 L Med Heel -Time 09:54 -Correct Patient Yes -Correct Side, Site, Position Yes -Correct Procedure Yes -Procedure Performed Yes -Type of Procedure Debridement -Clinical Debridement Subcutaneous -Post Debridement Size (cm) - Length 2.8 -Post Debridement Size (cm) - Width 1.4 -Post Debridement Size (cm) - Depth 0.4 -Total Square Cm 3.92 -Wound/Ulcer Outcome Not Healed -Ulcer Cleansing Rinsed/ Irrigated with Saline -Foul Odor after Cleansing No -Bioengineered Tissue Yes -Type of bioengineered Tissue EPICORD -Expiration Date 07/28/23 -Product Lot Number [id number] -Percent Used 100 -Saline Lot Number [id number] -Bleeding Controlled with Pressure -Offloading Yes -Type of Offloading Knee Walker -Treatment Response Procedure Tolerated Well #1 Left Heel -Time 09:55 -Correct Patient Yes -Correct Side, Site, Position Yes -Correct Procedure Yes -Procedure Performed Yes -Type of Procedure Debridement -Clinical Debridement Subcutaneous -Post Debridement Size (cm) - Length 1.9 -Post Debridement Size (cm) - Width 2.8 -Post Debridement Size (cm) - Depth 1.1 -Total Square Cm 5.32 -Wound/Ulcer Outcome Not Healed -Ulcer Cleansing Rinsed/ Irrigated with Saline -Foul Odor after Cleansing No -Bioengineered Tissue Yes -Type of bioengineered Tissue EPICORD -Expiration Date 07/28/23 -Product Lot Number [id number] -Percent Used 100 -Saline Lot Number [id number] -Bleeding Controlled with Pressure -Offloading Yes -Type of Offloading Knee Walker -Treatment Response Procedure Tolerated Well Pain Scale: 0-10 Numeric Is Patient Pain Free? Yes Wound debrided: plantar heel Laterality: Left Wound Grade/Stage: grade 3 Type of Debridement: Excisional debridement Anesthesia Used: 5% Lidocaine Gel Depth: in the subcutaneous layer Percentage of wound debrided: 100 Instrument Used: #15 blade Tissue Removed: fibrous, devitalized subcutaneous, biofilm, slough Severity: Fat Layer Exposed Amount of bleeding with debridement: Mild Bleeding Controlled with: Pressure Patient tolerated procedure well - Additional Wound Wound debrided: medial heel Laterality: Left Wound Grade/Stage: grade 1 Type of Debridement: Excisional debridement Anesthesia Used: 5% Lidocaine Gel Depth: in the subcutaneous layer Percentage of wound debrided: 100 Instrument Used: #15 blade Tissue Removed: fibrous, devitalized subcutaneous, biofilm, slough Severity: Fat Layer Exposed Amount of bleeding with debridement: Mild Bleeding Controlled with: Pressure Patient tolerated procedure: Patient tolerated procedure well Assessment/Plan Active Problems Type 2 diabetes mellitus with diabetic polyneuropathy (Chronic) Chronic ulcer of left foot with fat layer exposed (Chronic) Delayed wound healing (Chronic) Malnutrition (Chronic) Peripheral vascular disease (Chronic) Assessment: Left heel ulcer with fat layer exposed, no infection-medial. left heel ulcer with fascia and muscle layer exposed, no infection-plantar. Left Achilles tendon rupture improving. Peripheral vascular disease. Diabetes with neuropathy. Malnutrition. Other comorbidities. Walking difficulty Plan: Patient was examined and evaluated today. I reviewed and discussed his case. Debridement was performed today as noted in the clinical panel. He has clinical resolution of infection. A secondary dressing was applied and he was advised to leave this intact until the wound VAC change is performed next week by home health. Also the wound VAC was applied and set on continuous 150 mmHg. He also continues on IV antibiotics via PICC line under the management of infectious disease. His last course is scheduled for today. He understands this is a staged comprehensive wound healing plan and he is still at risk for limb loss. To continue strict offloading by wearing a Cam walking boot and using a knee roller, crutches, a walker to keep weight off of the site. Compliance was discussed. He understands this will significantly impair his healing process and he is at risk for limb loss. It is noted his noninvasive vascular studies were abnormal again and he has had previous lower extremity ulcers with significant delayed healing. He saw Dr. Beck and angiogram is planned; to proceed forward as advised. He is tentatively scheduled for an angiogram with potential intervention on February 03, 2019. I answered all of his questions.
[2019-02-10 09:44] VITALS: BP 142/74; PULSE 90; RESP 16; TEMP 35.5; BMI 28.3
--- NOTE | 2019-02-10 11:04 | PCM.WC.PN ---
(1) Type 2 diabetes mellitus with diabetic polyneuropathy Status: Chronic Current Visit: Yes Code(s): E11.42 - Type 2 diabetes mellitus with diabetic polyneuropathy (2) Chronic ulcer of left foot with fat layer exposed Status: Chronic Current Visit: Yes Code(s): L97.522 - Non-pressure chronic ulcer of other part of left foot with fat layer exposed (3) Delayed wound healing Status: Chronic Current Visit: Yes Code(s): T14.8XXD - Other injury of unspecified body region, subsequent encounter (4) Malnutrition Status: Chronic Current Visit: Yes Code(s): E46 - Unspecified protein-calorie malnutrition (5) Peripheral vascular disease Status: Chronic Current Visit: Yes Code(s): I73.9 - Peripheral vascular disease, unspecified Type of Wound Date of Service: 02/10/19 Chief Complaint: Left heel ulcer History of Wound: This 73-year-old male with multiple comorbidities is seen today for left plantar heel ulcer. He is concurrently being treated for a neglected left Achilles tendon rupture with CAM Walker immobilization and heel lift. He denies fever, chill, nausea, vomiting. He did have previous claudication symptoms. He continues to remain nonweightbearing. He had vascular surgery intervention performed last Friday with Dr. Beck. He reports it went well. Progress of Wound: Improving - Physical Exam Vital Signs Temp Pulse Resp BP 96 F L 90 16 142/74 H 02/10/19 09:44 02/10/19 09:44 02/10/19 09:44 02/10/19 09:44 General: Alert, Oriented x3, Cooperative, No apparent distress Extremities: No clubbing, Capillary Refill Less than 3 Seconds, No Calf Tenderness - Negative Abhishek and Irwin sign left. Achilles is palpable intact left, Diminished Peripheral Pulses, Edema - Mild left Skin: Ulcer/ Wound - No purulence, erythema, streaking, odor, or infection left. The peripheral skin is hairless and atrophic. There is exposed plantar fascia tissue noted to the plantar ulcer bed. The medial ulcer is granular and looks healthy. Wound Measurements and Assessment WC - Nurse 1 - General Ulcer Measurement Start: 01/27/19 09:38 Freq: Status: Active Protocol: Activity Type Activity Date Activity User E-Sign Co-Sign Detail Recorded Client Recorded Date Recorded By Document 02/10/19 09:44 [facility] [id number] 02/10/19 09:54 [facility] 02/10/19 09:44 Wound Center Nurse 1 [Ulcer Assessment] #2 L Med Heel -Combined with other wound No -Current Size (cm) - Length 1.1 -Current Size (cm) - Width 2.4 -Current Size (cm) - Depth 0.3 -Total Square Cm 2.64 -Photo Taken No -Epithelialization Small 1-33% -Tunneling No -Undermining/Tunneling No -Circular Undermining No -Exudate Amt Small -Exudate Type Serosanguineous -Wound Margin Distinct, Outline Attached -Granulation Amt Large (67-100%) -Granulation Quality Red -Slough/Fibrin No -Necrosis Amt None Present (0 %) -Texture (Emily-wound Skin Appearance) Assessed,Callus ,Scarring -Moisture (Emily-wound Skin Appearance Assessed, ) Maceration -Color (Emily-wound Skin Appearance) Assessed,Palor -Temperature (Emily-wound Skin No Abnormality Appearance) (Pt Warm) -Tenderness on Palpation (Emily-wound No Skin Appearance) -Foul Odor after Cleansing No -Anesthetic Used 4% Lidocaine Solution #1 Left Heel -Combined with other wound No -Current Size (cm) - Length 2 -Current Size (cm) - Width 2.4 -Current Size (cm) - Depth 1.3 -Total Square Cm 4.8 -Photo Taken No -Epithelialization Small 1-33% -Tunneling No -Undermining/Tunneling No -Circular Undermining No -Exudate Amt Small -Exudate Type Serosanguineous -Wound Margin Distinct, Outline Attached -Granulation Amt Medium (34-66%) -Granulation Quality Red -Slough/Fibrin Yes -Necrosis Amt Medium (34-66%) -Necrotic Tissue Type Adherent Slough -Texture (Emily-wound Skin Appearance) Assessed,Callus ,Scarring -Moisture (Emily-wound Skin Appearance Assessed, ) Maceration -Color (Emily-wound Skin Appearance) Assessed,Palor -Temperature (Emily-wound Skin No Abnormality Appearance) (Pt Warm) -Tenderness on Palpation (Emily-wound No Skin Appearance) -Foul Odor after Cleansing No -Anesthetic Used 4% Lidocaine Solution WC - Nurse 2 - General Ulcer CM Notes Start: 01/27/19 09:38 Freq: Status: Active Protocol: Activity Type Activity Date Activity User E-Sign Co-Sign Detail Recorded Client Recorded Date Recorded By Document 02/10/19 10:12 AN [id number] 02/10/19 10:18 AN 02/10/19 10:12 Wound Center Nurse 2 [Procedure/Treatment] #2 L Med Heel -Time 10:17 -Correct Patient Yes -Correct Side, Site, Position Yes -Correct Procedure Yes -Procedure Performed Yes -Type of Procedure Debridement -Clinical Debridement Subcutaneous -Post Debridement Size (cm) - Length 1.2 -Post Debridement Size (cm) - Width 2.5 -Post Debridement Size (cm) - Depth 0.3 -Total Square Cm 3.00 -Wound/Ulcer Outcome Not Healed -Bioengineered Tissue Yes -Type of bioengineered Tissue EPICORD -Offloading Yes -Type of Offloading Knee Walker -Treatment Response Procedure Tolerated Well #1 Left Heel -Time 10:17 -Correct Patient Yes -Correct Side, Site, Position Yes -Correct Procedure Yes -Procedure Performed Yes -Type of Procedure Debridement -Clinical Debridement Subcutaneous -Post Debridement Size (cm) - Length 2.1 -Post Debridement Size (cm) - Width 2.5 -Post Debridement Size (cm) - Depth 1.3 -Total Square Cm 5.25 -Wound/Ulcer Outcome Not Healed -Bioengineered Tissue Yes -Type of bioengineered Tissue EPICORD -Offloading Yes -Type of Offloading Knee Walker -Treatment Response Procedure Tolerated Well [See Physician Procedure note for Specifics] Pain Scale: 0-10 Numeric [Pain] -Is Patient Pain Free? Yes Musculoskeletal: No Tenderness to Palpation of Joints or Extremities, Muscle Wasting, - - Compartments soft Neurological: - - Lack of normal epicritic sensation to light touch Psych/Mental Status: Normal Affect, Appropriate Debridement Note Post-Debridement Measurements/Treatment WC - Nurse 2 - General Ulcer CM Notes Start: 01/27/19 09:38 Freq: Status: Active Protocol: Activity Type Activity Date Activity User E-Sign Co-Sign Detail Recorded Client Recorded Date Recorded By Document 01/27/19 09:53 GAGE [email or web address] 01/27/19 09:56 Document 02/10/19 10:12 AN [id number] 02/10/19 10:18 AN 01/27/19 02/10/19 09:53 10:12 Wound Center Nurse 2 #2 L Med Heel -Time 09:54 10:17 -Correct Patient Yes Yes -Correct Side, Site, Position Yes Yes -Correct Procedure Yes Yes -Procedure Performed Yes Yes -Type of Procedure Debridement Debridement -Clinical Debridement Subcutaneous Subcutaneous -Post Debridement Size (cm) - Length 2.8 1.2 -Post Debridement Size (cm) - Width 1.4 2.5 -Post Debridement Size (cm) - Depth 0.4 0.3 -Total Square Cm 3.92 3.00 -Wound/Ulcer Outcome Not Healed Not Healed -Ulcer Cleansing Rinsed/ Irrigated with Saline -Foul Odor after Cleansing No -Bioengineered Tissue Yes Yes -Type of bioengineered Tissue EPICMAGALIE EPICMAGALIE -Expiration Date 07/28/23 -Product Lot Number [id number] -Percent Used 100 -Saline Lot Number [id number] -Bleeding Controlled with Pressure -Offloading Yes Yes -Type of Offloading Knee Walker Knee Walker -Treatment Response Procedure Procedure Tolerated Well Tolerated Well #1 Left Heel -Time 09:55 10:17 -Correct Patient Yes Yes -Correct Side, Site, Position Yes Yes -Correct Procedure Yes Yes -Procedure Performed Yes Yes -Type of Procedure Debridement Debridement -Clinical Debridement Subcutaneous Subcutaneous -Post Debridement Size (cm) - Length 1.9 2.1 -Post Debridement Size (cm) - Width 2.8 2.5 -Post Debridement Size (cm) - Depth 1.1 1.3 -Total Square Cm 5.32 5.25 -Wound/Ulcer Outcome Not Healed Not Healed -Ulcer Cleansing Rinsed/ Irrigated with Saline -Foul Odor after Cleansing No -Bioengineered Tissue Yes Yes -Type of bioengineered Tissue OSVALDO RILEY -Expiration Date 07/28/23 -Product Lot Number [id number] -Percent Used 100 -Saline Lot Number [id number] -Bleeding Controlled with Pressure -Offloading Yes Yes -Type of Offloading Knee Walker Knee Walker -Treatment Response Procedure Procedure Tolerated Well Tolerated Well Pain Scale: 0-10 Numeric Is Patient Pain Free? Yes Yes Wound debrided: medial heel Laterality: Left Wound Grade/Stage: grade 2 Type of Debridement: Excisional debridement Anesthesia Used: 4% Lidocaine Solution Depth: in the subcutaneous layer Percentage of wound debrided: 100 Instrument Used: #15 blade Tissue Removed: fibrous, devitalized subcutaneous, biofilm, slough Severity: Fat Layer Exposed Amount of bleeding with debridement: Mild Bleeding Controlled with: Pressure Patient tolerated procedure well - Additional Wound Wound debrided: plantar heel Laterality: Left Wound Grade/Stage: grade 3 Type of Debridement: Excisional debridement Anesthesia Used: 5% Lidocaine Gel Depth: in the subcutaneous layer Percentage of wound debrided: 100 Instrument Used: #15 blade Tissue Removed: fibrous, devitalized subcutaneous, biofilm, slough Severity: Fat Layer Exposed Amount of bleeding with debridement: Mild Bleeding Controlled with: Pressure Patient tolerated procedure: Patient tolerated procedure well Assessment/Plan Active Problems Type 2 diabetes mellitus with diabetic polyneuropathy (Chronic) Chronic ulcer of left foot with fat layer exposed (Chronic) Delayed wound healing (Chronic) Malnutrition (Chronic) Peripheral vascular disease (Chronic) Assessment: Left heel ulcer with fat layer exposed, no infection-medial. left heel ulcer with fascia and muscle layer exposed, no infection-plantar. Left Achilles tendon rupture improving. Peripheral vascular disease. Diabetes with neuropathy. Malnutrition. Other comorbidities. Walking difficulty Plan: Patient was examined and evaluated today. I reviewed and discussed his case. Debridement was performed today as noted in the clinical panel. He has clinical resolution of infection. Advance wound healing prior, epi cord, was applied according to standard protocol after verbal consent was obtained. This is medically necessary for limb salvage. This insert further secured in place with a wound veil and Steri-Strips. He tolerated this well. He understands the indications, purpose, and anticipated healing time and management. He understands this is a staged comprehensive wound healing plan and he is still at risk for limb loss. To continue strict offloading by wearing a Cam walking boot and using a knee roller, crutches, a walker to keep weight off of the site. Compliance was discussed. He understands this will significantly impair his healing process and he is at risk for limb loss. It is noted he completed a course of antibiotics via PICC line. It is noted his noninvasive vascular studies were abnormal again and he has had previous lower extremity ulcers with significant delayed healing. He saw Dr. Beck and angiogram was performed. The intervention report will be reviewed. I answered all of his questions.
[2019-02-17 08:29] VITALS: BP 137/78; PULSE 73; RESP 18; TEMP 36.7; BMI 28.3
--- NOTE | 2019-02-17 10:29 | PN.PCM_ITS ---
(1) Chronic ulcer of left foot with fat layer exposed Status: Chronic Current Visit: Yes Code(s): L97.522 - Non-pressure chronic ulcer of other part of left foot with fat layer exposed (2) Type 2 diabetes mellitus with diabetic polyneuropathy Status: Chronic Current Visit: Yes Code(s): E11.42 - Type 2 diabetes mellitus with diabetic polyneuropathy (3) Delayed wound healing Status: Chronic Current Visit: Yes Code(s): T14.8XXD - Other injury of unspecified body region, subsequent encounter (4) Malnutrition Status: Chronic Current Visit: Yes Code(s): E46 - Unspecified protein- calorie malnutrition (5) Peripheral vascular disease Status: Chronic Current Visit: Yes Code(s): I73.9 - Peripheral vascular disease, unspecified Type of Wound Date of Service: 02/17/19 Chief Complaint: Left heel ulcer History of Wound: This 73-year-old male with multiple comorbidities is seen today for left plantar heel ulcer. He is concurrently being treated for a neglected left Achilles tendon rupture with CAM Walker immobilization and heel lift. He denies fever, chill, nausea, vomiting. He did have previous claudication symptoms. He continues to remain nonweightbearing. He had vascular surgery intervention performed recently with Dr. Beck. He is with his neighbor Paul today. Progress of Wound: Improving - Physical Exam Vital Signs Temp Pulse Resp BP 98.0 F 73 18 137/78 H 02/17/19 08:29 02/17/19 08:29 02/17/19 08:29 02/17/19 08:29 General: Alert, Oriented x3, Cooperative, No apparent distress Extremities: No cyanosis, Capillary Refill Less than 3 Seconds, No Calf Tenderness - Negative Abhishek and Irwin sign left, Diminished Peripheral Pulses, Edema Skin: Ulcer/ Wound - No purulence, erythema, streaking, odor, or gross infection. There is decreased plantar fascial band exposure noted to the plantar ulcer site and no probe to bone. There is continued granulation tissue formation and peripheral epithelialization of both sites. There is no peripheral bogginess or fluctuance. The peripheral skin is hairless and atrophic. Wound Measurements and Assessment WC - Nurse 2 - General Ulcer CM Notes Start: 01/27/19 09:38 Freq: Status: Active Protocol: Activity Type Activity Date Activity User E-Sign Co-Sign Detail Recorded Client Recorded Date Recorded By Document 02/17/19 08:52 AN [email or web address] 02/17/19 08:56 AN 02/17/19 08:52 Wound Center Nurse 2 [Procedure/Treatment] #2 L Med Heel -Time 08:54 -Correct Patient Yes -Correct Side, Site, Position Yes -Correct Procedure Yes -Procedure Performed Yes -Type of Procedure Debridement -Clinical Debridement Subcutaneous -Post Debridement Size (cm) - Length 1.2 -Post Debridement Size (cm) - Width 2.5 -Post Debridement Size (cm) - Depth 0.3 -Total Square Cm 3.00 -Wound/Ulcer Outcome Not Healed -Type of bioengineered Tissue EPICORD -Bleeding Controlled with Pressure -Offloading Yes -Type of Offloading Knee Walker -Treatment Response Procedure Tolerated Well #1 Left Heel -Time 08:54 -Correct Patient Yes -Correct Side, Site, Position Yes -Correct Procedure Yes -Procedure Performed Yes -Type of Procedure Debridement -Clinical Debridement Subcutaneous -Post Debridement Size (cm) - Length 2.5 -Post Debridement Size (cm) - Width 1.4 -Post Debridement Size (cm) - Depth 1.3 -Total Square Cm 3.50 -Wound/Ulcer Outcome Not Healed -Type of bioengineered Tissue EPICORD -Treatment Response Procedure Tolerated Well [See Physician Procedure note for Specifics] Pain Scale: 0-10 Numeric [Pain] -Is Patient Pain Free? Yes Musculoskeletal: No Tenderness to Palpation of Joints or Extremities, Muscle Wasting, - - No pain with ulcer manipulation left Neurological: - - Lack of epicritic sensation light touch consistent with neuropathy left Psych/Mental Status: Normal Affect, Appropriate Debridement Note Post-Debridement Measurements/Treatment WC - Nurse 2 - General Ulcer CM Notes Start: 01/27/19 09:38 Freq: Status: Active Protocol: Activity Type Activity Date Activity User E-Sign Co-Sign Detail Recorded Client Recorded Date Recorded By Document 01/27/19 09:53 [id number] 01/27/19 09:56 Document 02/10/19 10:12 AN [id number] 02/10/19 10:18 AN Document 02/17/19 08:52 AN [id number] 02/17/19 08:56 AN 01/27/19 02/10/19 02/17/19 09:53 10:12 08:52 Wound Center Nurse 2 #2 L Med Heel -Time 09:54 10:17 08:54 -Correct Patient Yes Yes Yes -Correct Side, Site, Position Yes Yes Yes -Correct Procedure Yes Yes Yes -Procedure Performed Yes Yes Yes -Type of Procedure Debridement Debridement Debridement -Clinical Debridement Subcutaneous Subcutaneous Subcutaneous -Post Debridement Size (cm) - Length 2.8 1.2 1.2 -Post Debridement Size (cm) - Width 1.4 2.5 2.5 -Post Debridement Size (cm) - Depth 0.4 0.3 0.3 -Total Square Cm 3.92 3.00 3.00 -Wound/Ulcer Outcome Not Healed Not Healed Not Healed -Ulcer Cleansing Rinsed/ Irrigated with Saline -Foul Odor after Cleansing No -Bioengineered Tissue Yes Yes -Type of bioengineered Tissue EPICORD EPICORD EPICORD -Expiration Date 07/28/23 -Product Lot Number [id number] -Percent Used 100 -Saline Lot Number [id number] -Bleeding Controlled with Pressure Pressure -Offloading Yes Yes Yes -Type of Offloading Knee Walker Knee Walker Knee Walker -Treatment Response Procedure Procedure Procedure Tolerated Well Tolerated Well Tolerated Well #1 Left Heel -Time 09:55 10:17 08:54 -Correct Patient Yes Yes Yes -Correct Side, Site, Position Yes Yes Yes -Correct Procedure Yes Yes Yes -Procedure Performed Yes Yes Yes -Type of Procedure Debridement Debridement Debridement -Clinical Debridement Subcutaneous Subcutaneous Subcutaneous -Post Debridement Size (cm) - Length 1.9 2.1 2.5 -Post Debridement Size (cm) - Width 2.8 2.5 1.4 -Post Debridement Size (cm) - Depth 1.1 1.3 1.3 -Total Square Cm 5.32 5.25 3.50 -Wound/Ulcer Outcome Not Healed Not Healed Not Healed -Ulcer Cleansing Rinsed/ Irrigated with Saline -Foul Odor after Cleansing No -Bioengineered Tissue Yes Yes -Type of bioengineered Tissue EPICORD EPICORD EPICORD -Expiration Date 07/28/23 -Product Lot Number [id number] -Percent Used 100 -Saline Lot Number [id number] -Bleeding Controlled with Pressure -Offloading Yes Yes -Type of Offloading Knee Walker Knee Walker -Treatment Response Procedure Procedure Procedure Tolerated Well Tolerated Well Tolerated Well Pain Scale: 0-10 Numeric Is Patient Pain Free? Yes Yes Yes Wound debrided: plantar heel Laterality: Left Wound Grade/Stage: grade 3 Type of Debridement: Excisional debridement Anesthesia Used: 4% Lidocaine Solution Depth: in the subcutaneous layer Percentage of wound debrided: 100 Instrument Used: #15 blade Tissue Removed: fibrous, devitalized subcutaneous, biofilm, slough Severity: Fat Layer Exposed Amount of bleeding with debridement: Mild Bleeding Controlled with: Pressure Patient tolerated procedure well - Additional Wound Wound debrided: medial heel Laterality: Left Wound Grade/Stage: grade 3 Type of Debridement: Excisional debridement Anesthesia Used: 5% Lidocaine Gel Depth: in the subcutaneous layer Percentage of wound debrided: 100 Instrument Used: #15 blade Tissue Removed: fibrous, devitalized subcutaneous, biofilm, slough Severity: Fat Layer Exposed Amount of bleeding with debridement: Mild Bleeding Controlled with: Pressure Patient tolerated procedure: Patient tolerated procedure well Assessment/Plan Active Problems Type 2 diabetes mellitus with diabetic polyneuropathy (Chronic) Chronic ulcer of left foot with fat layer exposed (Chronic) Delayed wound healing (Chronic) Malnutrition (Chronic) Peripheral vascular disease (Chronic) Assessment: Left heel ulcer with fat layer exposed, no infection-medial. left heel ulcer with fascia and muscle layer exposed, no infection-plantar. Left Achilles tendon rupture improving. Peripheral vascular disease. Diabetes with neuropathy. Malnutrition. Other comorbidities. Walking difficulty Plan: Patient was examined and evaluated today. I reviewed and discussed his case. Debridement was performed today as noted in the clinical panel. He has clinical resolution of infection. Advance wound healing prior, epi cord, was applied according to standard protocol after verbal consent was obtained. This is medically necessary for limb salvage. This insert further secured in place with a wound veil and Steri-Strips. He tolerated this well. He understands the indications, purpose, and anticipated healing time and management. He understands this is a staged comprehensive wound healing plan and he is still at risk for limb loss. To continue strict offloading by wearing a Cam walking boot and using a knee roller, crutches, a walker to keep weight off of the site. Compliance was discussed. He understands this will significantly impair his healing process and he is at risk for limb loss. It is noted he completed a course of antibiotics via PICC line. It is noted his noninvasive vascular studies were abnormal again and he has had previous lower extremity ulcers with significant delayed healing. He saw Dr. Beck and angiogram was performed. I answered all of his questions. To return to clinic in 1 week or call sooner if he has any questions or concerns. He was notified of the suspected fleas and he was encouraged to bathe in place fresh clothing prior to coming to the wound center to prevent central contamination. He demonstrates understanding.
[2019-02-24 10:15] VITALS: BP 163/88; PULSE 76; RESP 18; TEMP 35.7; BMI 28.3
--- NOTE | 2019-02-24 11:40 | PN.PCM_ITS ---
(1) Chronic ulcer of left foot with fat layer exposed Status: Chronic Current Visit: Yes Code(s): L97.522 - Non-pressure chronic ulcer of other part of left foot with fat layer exposed (2) Type 2 diabetes mellitus with diabetic polyneuropathy Status: Chronic Current Visit: Yes Code(s): E11.42 - Type 2 diabetes mellitus with diabetic polyneuropathy (3) Delayed wound healing Status: Chronic Current Visit: Yes Code(s): T14.8XXD - Other injury of unspecified body region, subsequent encounter (4) Malnutrition Status: Chronic Current Visit: Yes Code(s): E46 - Unspecified protein- calorie malnutrition (5) Peripheral vascular disease Status: Chronic Current Visit: Yes Code(s): I73.9 - Peripheral vascular disease, unspecified Type of Wound Date of Service: 02/24/19 Chief Complaint: Left heel ulcer History of Wound: This 73-year-old male with multiple comorbidities is seen today for left plantar heel ulcer. He is concurrently being treated for a neglected left Achilles tendon rupture with CAM Walker immobilization and heel lift. He denies fever, chill, nausea, vomiting. He did have previous claudication symptoms. He continues to remain nonweightbearing. He had vascular surgery intervention performed recently with Dr. Beck. He is with his neighbor Paul today. Progress of Wound: Improving - Physical Exam Vital Signs Temp Pulse Resp BP 96.2 F L 76 18 163/88 H 02/24/19 10:15 02/24/19 10:15 02/24/19 10:15 02/24/19 10:15 General: Alert, Oriented x3, Cooperative, No apparent distress Extremities: No cyanosis, No edema, Capillary Refill Less than 3 Seconds, No Calf Tenderness, Diminished Peripheral Pulses Skin: Ulcer/ Wound - No purulence, erythema, streaking, odor, maceration, exposed bone or infection. The peripheral skin is hairless and atrophic. Peripheral epithelialization continues Wound Measurements and Assessment WC - Nurse 1 - General Ulcer Measurement Start: 01/27/19 09:38 Freq: Status: Active Protocol: Activity Type Activity Date Activity User E-Sign Co-Sign Detail Recorded Client Recorded Date Recorded By Document 02/24/19 10:15 RB [id number] 02/24/19 10:20 RB 02/24/19 10:15 Wound Center Nurse 1 [Ulcer Assessment] #2 L Med Heel -Combined with other wound No -Current Size (cm) - Length 2.3 -Current Size (cm) - Width 1.2 -Current Size (cm) - Depth 0.2 -Total Square Cm 2.76 -Tunneling No -Undermining/Tunneling No -Circular Undermining No -Exudate Amt Small -Exudate Type Serosanguineous -Wound Margin Distinct, Outline Attached -Granulation Amt Medium (34-66%) -Granulation Quality [place],Red -Slough/Fibrin Yes -Necrosis Amt Small (1-33%) -Necrotic Tissue Type Adherent Slough -Structure Exposed N/A -Texture (Emily-wound Skin Appearance) Assessed -Moisture (Emily-wound Skin Appearance Assessed ) -Color (Emily-wound Skin Appearance) Assessed -Temperature (Emily-wound Skin No Abnormality Appearance) (Pt Warm) -Tenderness on Palpation (Emily-wound No Skin Appearance) -Ulcer Cleansing Wound Cleanser -Foul Odor after Cleansing No -Anesthetic Used 4% Lidocaine Solution #1 Left Heel -Combined with other wound No -Current Size (cm) - Length 1 -Current Size (cm) - Width 1.4 -Current Size (cm) - Depth 1 -Total Square Cm 1.4 -Tunneling No -Undermining/Tunneling No -Circular Undermining No -Exudate Amt Small -Exudate Type Serosanguineous -Wound Margin Distinct, Outline Attached -Granulation Amt Large (67-100%) -Granulation Quality [place] -Slough/Fibrin Yes -Necrosis Amt Small (1-33%) -Necrotic Tissue Type Adherent Slough -Structure Exposed N/A -Texture (Emily-wound Skin Appearance) Assessed -Moisture (Emily-wound Skin Appearance Assessed, ) Maceration -Color (Emily-wound Skin Appearance) Assessed -Temperature (Emily-wound Skin No Abnormality Appearance) (Pt Warm) -Tenderness on Palpation (Emily-wound No Skin Appearance) -Ulcer Cleansing Wound Cleanser -Foul Odor after Cleansing No -Anesthetic Used 4% Lidocaine Solution [Edema Assessment] -Lower Limb Edema Present Yes -Left Calf (cm) 34 -Left Ankle (cm) 22 WC - Nurse 2 - General Ulcer CM Notes Start: 01/27/19 09:38 Freq: Status: Active Protocol: Activity Type Activity Date Activity User E-Sign Co-Sign Detail Recorded Client Recorded Date Recorded By Document 02/24/19 10:47 AN [id number] 02/24/19 10:49 AN 02/24/19 10:47 Wound Center Nurse 2 [Procedure/Treatment] #2 L Med Heel -Time 10:48 -Correct Patient Yes -Correct Side, Site, Position Yes -Correct Procedure Yes -Procedure Performed Yes -Type of Procedure Debridement -Clinical Debridement Subcutaneous -Post Debridement Size (cm) - Length 1.1 -Post Debridement Size (cm) - Width 1.5 -Post Debridement Size (cm) - Depth 0.1 -Total Square Cm 1.65 -Wound/Ulcer Outcome Not Healed -Bioengineered Tissue Yes -Type of bioengineered Tissue EPICORD -Bleeding Controlled with Pressure -Offloading Yes -Type of Offloading Knee Walker -Treatment Response Procedure Tolerated Well #1 Left Heel -Time 10:48 -Correct Patient Yes -Correct Side, Site, Position Yes -Correct Procedure Yes -Procedure Performed Yes -Type of Procedure Debridement -Clinical Debridement Subcutaneous -Post Debridement Size (cm) - Length 2.4 -Post Debridement Size (cm) - Width 1.3 -Post Debridement Size (cm) - Depth 0.2 -Total Square Cm 3.12 -Wound/Ulcer Outcome Not Healed -Ulcer Cleansing Rinsed/ Irrigated with Saline -Foul Odor after Cleansing No -Bioengineered Tissue Yes -Type of bioengineered Tissue EPICORD -Bleeding Controlled with Pressure -Offloading Yes -Type of Offloading Knee Walker -Treatment Response Procedure Tolerated Well [See Physician Procedure note for Specifics] Pain Scale: 0-10 Numeric [Pain] -Is Patient Pain Free? Yes Musculoskeletal: No Tenderness to Palpation of Joints or Extremities, Muscle Wa sting Neurological: - - Lack of normal epicritic sensation light touch consistent with neuropathy Psych/Mental Status: Normal Affect, Appropriate Debridement Note Post-Debridement Measurements/Treatment WC - Nurse 2 - General Ulcer CM Notes Start: 01/27/19 09:38 Freq: Status: Active Protocol: Activity Type Activity Date Activity User E-Sign Co-Sign Detail Recorded Client Recorded Date Recorded By Document 01/27/19 09:53 GAGE [id number] 01/27/19 09:56 JF Document 02/10/19 10:12 AN [id number] 02/10/19 10:18 AN Document 02/17/19 08:52 AN [id number] 02/17/19 08:56 AN Document 02/24/19 10:47 AN [id number] 02/24/19 10:49 AN 01/27/19 02/10/19 02/17/19 09:53 10:12 08:52 Wound Center Nurse 2 #2 L Med Heel -Time 09:54 10:17 08:54 -Correct Patient Yes Yes Yes -Correct Side, Site, Position Yes Yes Yes -Correct Procedure Yes Yes Yes -Procedure Performed Yes Yes Yes -Type of Procedure Debridement Debridement Debridement -Clinical Debridement Subcutaneous Subcutaneous Subcutaneous -Post Debridement Size (cm) - Length 2.8 1.2 1.2 -Post Debridement Size (cm) - Width 1.4 2.5 2.5 -Post Debridement Size (cm) - Depth 0.4 0.3 0.3 -Total Square Cm 3.92 3.00 3.00 -Wound/Ulcer Outcome Not Healed Not Healed Not Healed -Ulcer Cleansing Rinsed/ Irrigated with Saline -Foul Odor after Cleansing No -Bioengineered Tissue Yes Yes -Type of bioengineered Tissue EPICORD [employer] EPICORD -Expiration Date 07/28/23 -Product Lot Number [id number] -Percent Used 100 -Saline Lot Number [id number] -Bleeding Controlled with Pressure Pressure -Offloading Yes Yes Yes -Type of Offloading Knee Walker Knee Walker Knee Walker -Treatment Response Procedure Procedure Procedure Tolerated Well Tolerated Well Tolerated Well #1 Left Heel -Time 09:55 10:17 08:54 -Correct Patient Yes Yes Yes -Correct Side, Site, Position Yes Yes Yes -Correct Procedure Yes Yes Yes -Procedure Performed Yes Yes Yes -Type of Procedure Debridement Debridement Debridement -Clinical Debridement Subcutaneous Subcutaneous Subcutaneous -Post Debridement Size (cm) - Length 1.9 2.1 2.5 -Post Debridement Size (cm) - Width 2.8 2.5 1.4 -Post Debridement Size (cm) - Depth 1.1 1.3 1.3 -Total Square Cm 5.32 5.25 3.50 -Wound/Ulcer Outcome Not Healed Not Healed Not Healed -Ulcer Cleansing Rinsed/ Irrigated with Saline -Foul Odor after Cleansing No -Bioengineered Tissue Yes Yes -Type of bioengineered Tissue EPICORD EPICORD EPICORD -Expiration Date 07/28/23 -Product Lot Number [id number] -Percent Used 100 -Saline Lot Number [id number] -Bleeding Controlled with Pressure -Offloading Yes Yes -Type of Offloading Knee Walker Knee Walker -Treatment Response Procedure Procedure Procedure Tolerated Well Tolerated Well Tolerated Well Pain Scale: 0-10 Numeric Is Patient Pain Free? Yes Yes Yes 02/24/19 10:47 Wound Center Nurse 2 #2 L Med Heel -Time 10:48 -Correct Patient Yes -Correct Side, Site, Position Yes -Correct Procedure Yes -Procedure Performed Yes -Type of Procedure Debridement -Clinical Debridement Subcutaneous -Post Debridement Size (cm) - Length 1.1 -Post Debridement Size (cm) - Width 1.5 -Post Debridement Size (cm) - Depth 0.1 -Total Square Cm 1.65 -Wound/Ulcer Outcome Not Healed -Ulcer Cleansing -Foul Odor after Cleansing -Bioengineered Tissue Yes -Type of bioengineered Tissue EPICORD -Expiration Date -Product Lot Number -Percent Used -Saline Lot Number -Bleeding Controlled with Pressure -Offloading Yes -Type of Offloading Knee Walker -Treatment Response Procedure Tolerated Well #1 Left Heel -Time 10:48 -Correct Patient Yes -Correct Side, Site, Position Yes -Correct Procedure Yes -Procedure Performed Yes -Type of Procedure Debridement -Clinical Debridement Subcutaneous -Post Debridement Size (cm) - Length 2.4 -Post Debridement Size (cm) - Width 1.3 -Post Debridement Size (cm) - Depth 0.2 -Total Square Cm 3.12 -Wound/Ulcer Outcome Not Healed -Ulcer Cleansing Rinsed/ Irrigated with Saline -Foul Odor after Cleansing No -Bioengineered Tissue Yes -Type of bioengineered Tissue EPICORD -Expiration Date -Product Lot Number -Percent Used -Saline Lot Number -Bleeding Controlled with Pressure -Offloading Yes -Type of Offloading Knee Walker -Treatment Response Procedure Tolerated Well Pain Scale: 0-10 Numeric Is Patient Pain Free? Yes Wound debrided: plantar heel Laterality: Left Wound Grade/Stage: grade3 Type of Debridement: Excisional debridement Anesthesia Used: 5% Lidocaine Gel Depth: in the subcutaneous layer Percentage of wound debrided: 100 Instrument Used: #15 blade Tissue Removed: fibrous, devitalized subcutaneous, biofilm, slough Severity: Fat Layer Exposed Amount of bleeding with debridement: Mild Bleeding Controlled with: Pressure Patient tolerated procedure well - Additional Wound Wound debrided: medial heel Laterality: Left Wound Grade/Stage: grade3 Type of Debridement: Excisional debridement Anesthesia Used: 5% Lidocaine Gel Depth: in the subcutaneous layer Percentage of wound debrided: 100 Instrument Used: #15 blade Tissue Removed: fibrous, devitalized subcutaneous, biofilm, slough Severity: Fat Layer Exposed Amount of bleeding with debridement: Mild Bleeding Controlled with: Pressure Patient tolerated procedure: Patient tolerated procedure well Assessment/Plan Active Problems Type 2 diabetes mellitus with diabetic polyneuropathy (Chronic) Chronic ulcer of left foot with fat layer exposed (Chronic) Delayed wound healing (Chronic) Malnutrition (Chronic) Peripheral vascular disease (Chronic) Assessment: Left heel ulcer with fat layer exposed, no infection-medial. left heel ulcer with fascia and muscle layer exposed, no infection-plantar. Left Achilles tendon rupture improving. Peripheral vascular disease. Diabetes with neuropathy. Malnutrition. Other comorbidities. Walking difficulty Plan: Patient was examined and evaluated today. I reviewed and discussed his case. Debridement was performed today as noted in the clinical panel. He has clinical resolution of infection. Advance wound healing prior, epi cord, was applied according to standard protocol after verbal consent was obtained. This is medically necessary for limb salvage. This was further secured in place with a wound veil and Steri-Strips. He tolerated this well. He understands the i ndications, purpose, and anticipated healing time and management. He understands this is a staged comprehensive wound healing plan and he is still at risk for limb loss. To continue wound VAC: Additional supplies will be requested. To continue strict offloading by wearing a Cam walking boot and using a knee roller, crutches, a walker to keep weight off of the site. Compliance was discussed. He understands this will significantly impair his healing process and he is at risk for limb loss. It is noted he completed a course of antibiotics via PICC line. It is noted his noninvasive vascular studies were abnormal again and he has had previous lower extremity ulcers with significant delayed healing. He saw Dr. Beck and angiogram was performed. I answered all of his questions. To return to clinic in 1 week or call sooner if he has any questions or concerns. He was notified of the suspected fleas and he was encouraged to bathe in place fresh clothing prior to coming to the wound center to prevent central contamination. He demonstrates understanding.
== END 2019-02-24 23:59 ==
LOC: WC 10:00
PROVIDERS: Family Provider Family Medicine; PCP Family Medicine; Referring Provider Podiatrist; Visit Provider Podiatrist
DX: E11.621 Type 2 diabetes mellitus with foot ulcer (principal); E11.42 Type 2 diabetes mellitus with diabetic polyneuropathy; E11.51 Type 2 diabetes mellitus with diabetic peripheral angiopathy without gangrene; L97.422 Non-pressure chronic ulcer of left heel and midfoot with fat layer exposed; R26.2 Difficulty in walking, not elsewhere classified
CPT/HCPCS: 15275; 97605; Q4187

== ENCOUNTER 2019-03-24 09:30 | Outpatient (RCR) | payer MEDICARE, SELFPAY ==
[2019-02-25 00:47] VITALS: BP 163/88; PULSE 76; RESP 18; TEMP 35.7
[2019-03-03 08:48] VITALS: BP 146/72; PULSE 83; RESP 18; TEMP 35.5; BMI 28.3
--- NOTE | 2019-03-03 12:57 | PCM.WC.PN ---
(1) Chronic ulcer of left foot with fat layer exposed Status: Chronic Current Visit: Yes Code(s): L97.522 - Non-pressure chronic ulcer of other part of left foot with fat layer exposed (2) Walking difficulty due to ankle and foot Status: Chronic Current Visit: Yes Code(s): R26.2 - Difficulty in walking, not elsewhere classified (3) Type 2 diabetes mellitus with diabetic polyneuropathy Status: Chronic Current Visit: Yes Code(s): E11.42 - Type 2 diabetes mellitus with diabetic polyneuropathy (4) PVD (peripheral vascular disease) Status: Chronic Current Visit: Yes Code(s): I73.9 - Peripheral vascular disease, unspecified (5) Delayed wound healing Status: Chronic Current Visit: Yes Code(s): T14.8XXD - Other injury of unspecified body region, subsequent encounter (6) Malnutrition Status: Chronic Current Visit: Yes Code(s): E46 - Unspecified protein-calorie malnutrition Type of Wound Date of Service: 03/03/19 Chief Complaint: Left heel ulcer History of Wound: This 73-year-old male with multiple comorbidities is seen today for left plantar heel ulcer. He had a history of neglected left Achilles tendon rupture that was treated conservatively. He denies fever, chill, nausea, vomiting. He did have previous claudication symptoms. He continues to remain nonweightbearing. He had vascular surgery intervention performed recently with Dr. Beck. He is with his neighbor Paul today. Progress of Wound: Improving - Physical Exam Vital Signs Temp Pulse Resp BP 95.9 F L 83 18 146/72 H 03/03/19 08:48 03/03/19 08:48 03/03/19 08:48 03/03/19 08:48 General: Alert, Oriented x3, Cooperative, No apparent distress Extremities: No cyanosis, Capillary Refill Less than 3 Seconds, No Calf Tenderness, Diminished Peripheral Pulses, Edema Skin: Ulcer/ Wound - No purulence, erythema, streaking, odor, or infection. The peripheral skin is hairless and atrophic. There is decreased plantar fascia tissue exposure noted Wound Measurements and Assessment WC - Nurse 1 - General Ulcer Measurement Start: 03/03/19 08:47 Freq: Status: Active Protocol: Activity Type Activity Date Activity User E-Sign Co-Sign Detail Recorded Client Recorded Date Recorded By Document 03/03/19 08:48 [id number] 03/03/19 08:57 03/03/19 08:48 Wound Center Nurse 1 [Ulcer Assessment] #2 L Med Heel -Combined with other wound No -Current Size (cm) - Length 0.7 -Current Size (cm) - Width 0.6 -Current Size (cm) - Depth 0.1 -Total Square Cm 0.42 -Photo Taken No -Epithelialization Medium 34-66% -Tunneling No -Undermining/Tunneling No -Circular Undermining No -Exudate Amt None Present -Wound Margin Flat & Intact -Granulation Amt Large (67-100%) -Granulation Quality Red -Slough/Fibrin Yes -Necrosis Amt Small (1-33%) -Necrotic Tissue Type Adherent Slough -Structure Exposed N/A -Texture (Emily-wound Skin Appearance) Assessed, Localized Edema -Moisture (Emily-wound Skin Appearance Assessed,Dry/ ) Scaly -Color (Emily-wound Skin Appearance) Assessed -Temperature (Emily-wound Skin No Abnormality Appearance) (Pt Warm) -Tenderness on Palpation (Emily-wound No Skin Appearance) -Ulcer Cleansing Wound Cleanser -Foul Odor after Cleansing No -Anesthetic Used 4% Lidocaine Solution #1 Left Heel -Combined with other wound No -Current Size (cm) - Length 0.8 -Current Size (cm) - Width 1.3 -Current Size (cm) - Depth 0.5 -Total Square Cm 1.04 -Photo Taken No -Epithelialization Medium 34-66% -Tunneling No -Undermining/Tunneling No -Circular Undermining No -Exudate Amt Medium -Exudate Type Serosanguineous -Wound Margin Flat & Intact -Granulation Amt Medium (34-66%) -Granulation Quality [place] -Slough/Fibrin Yes -Necrosis Amt Medium (34-66%) -Necrotic Tissue Type Adherent Slough -Structure Exposed N/A -Texture (Emily-wound Skin Appearance) Assessed, Excoriation -Moisture (Emily-wound Skin Appearance Assessed, ) Maceration -Color (Emily-wound Skin Appearance) Assessed -Temperature (Emily-wound Skin No Abnormality Appearance) (Pt Warm) -Tenderness on Palpation (Emily-wound No Skin Appearance) -Ulcer Cleansing Wound Cleanser -Foul Odor after Cleansing No -Anesthetic Used 4% Lidocaine Solution [Edema Assessment] -Lower Limb Edema Present Yes -Left Calf (cm) 34 -Left Ankle (cm) 20 WC - Nurse 2 - General Ulcer CM Notes Start: 03/03/19 08:47 Freq: Status: Active Protocol: Activity Type Activity Date Activity User E-Sign Co-Sign Detail Recorded Client Recorded Date Recorded By Document 03/03/19 09:18 AN [id number] 03/03/19 09:21 AN 03/03/19 09:18 Wound Center Nurse 2 [Procedure/Treatment] #2 L Med Heel -Time 09:20 -Correct Patient Yes -Correct Side, Site, Position Yes -Correct Procedure Yes -Procedure Performed Yes -Type of Procedure Debridement -Clinical Debridement Subcutaneous -Post Debridement Size (cm) - Length 0.8 -Post Debridement Size (cm) - Width 0.7 -Post Debridement Size (cm) - Depth 0.1 -Total Square Cm 0.56 -Wound/Ulcer Outcome Not Healed -Bioengineered Tissue Yes -Type of bioengineered Tissue EPICORD -Bleeding Controlled with Pressure -Type of Offloading Knee Walker -Treatment Response Procedure Tolerated Well #1 Left Heel -Time 09:20 -Correct Patient Yes -Correct Side, Site, Position Yes -Correct Procedure Yes -Procedure Performed Yes -Type of Procedure Debridement -Clinical Debridement Subcutaneous -Post Debridement Size (cm) - Length 0.9 -Post Debridement Size (cm) - Width 1.4 -Post Debridement Size (cm) - Depth 0.5 -Total Square Cm 1.26 -Wound/Ulcer Outcome Not Healed -Ulcer Cleansing Rinsed/ Irrigated with Saline -Foul Odor after Cleansing No -Type of bioengineered Tissue EPICORD -Bleeding Controlled with Pressure -Offloading Yes -Type of Offloading Knee Walker -Treatment Response Procedure Tolerated Well [See Physician Procedure note for Specifics] Pain Scale: 0-10 Numeric [Pain] -Is Patient Pain Free? Yes Musculoskeletal: No Tenderness to Palpation of Joints or Extremities, Muscle Wasting, - - Palpable Achilles tendon left Neurological: - - Lack of normal epicritic sensation light touch consistent with neuropathy status Psych/Mental Status: Normal Affect, Appropriate Debridement Note Post-Debridement Measurements/Treatment WC - Nurse 2 - General Ulcer CM Notes Start: 03/03/19 08:47 Freq: Status: Active Protocol: Activity Type Activity Date Activity User E-Sign Co-Sign Detail Recorded Client Recorded Date Recorded By Document 03/03/19 09:18 AN [id number] 03/03/19 09:21 AN 03/03/19 09:18 Wound Center Nurse 2 #2 L Med Heel -Time 09:20 -Correct Patient Yes -Correct Side, Site, Position Yes -Correct Procedure Yes -Procedure Performed Yes -Type of Procedure Debridement -Clinical Debridement Subcutaneous -Post Debridement Size (cm) - Length 0.8 -Post Debridement Size (cm) - Width 0.7 -Post Debridement Size (cm) - Depth 0.1 -Total Square Cm 0.56 -Wound/Ulcer Outcome Not Healed -Bioengineered Tissue Yes -Type of bioengineered Tissue EPICORD -Bleeding Controlled with Pressure -Type of Offloading Knee Walker -Treatment Response Procedure Tolerated Well #1 Left Heel -Time 09:20 -Correct Patient Yes -Correct Side, Site, Position Yes -Correct Procedure Yes -Procedure Performed Yes -Type of Procedure Debridement -Clinical Debridement Subcutaneous -Post Debridement Size (cm) - Length 0.9 -Post Debridement Size (cm) - Width 1.4 -Post Debridement Size (cm) - Depth 0.5 -Total Square Cm 1.26 -Wound/Ulcer Outcome Not Healed -Ulcer Cleansing Rinsed/ Irrigated with Saline -Foul Odor after Cleansing No -Type of bioengineered Tissue EPICORD -Bleeding Controlled with Pressure -Offloading Yes -Type of Offloading Knee Walker -Treatment Response Procedure Tolerated Well Pain Scale: 0-10 Numeric Is Patient Pain Free? Yes Wound debrided: plantar heel Laterality: Left Wound Grade/Stage: grade 3 Type of Debridement: Excisional debridement Anesthesia Used: 5% Lidocaine Gel Depth: in the subcutaneous layer Percentage of wound debrided: 100 Instrument Used: #15 blade Tissue Removed: fibrous, devitalized subcutaneous, biofilm, slough Severity: Fat Layer Exposed Amount of bleeding with debridement: Mild Bleeding Controlled with: Pressure Patient tolerated procedure well - Additional Wound Wound debrided: medial heel Laterality: Left Wound Grade/Stage: grade 3 Type of Debridement: Excisional debridement Anesthesia Used: 5% Lidocaine Gel Depth: in the subcutaneous layer Percentage of wound debrided: 100 Instrument Used: #15 blade Tissue Removed: fibrous, devitalized subcutaneous, biofilm, slough Severity: Fat Layer Exposed Amount of bleeding with debridement: Mild Bleeding Controlled with: Pressure Patient tolerated procedure: Patient tolerated procedure well Assessment/Plan Active Problems Walking difficulty due to ankle and foot (Chronic) Type 2 diabetes mellitus with diabetic polyneuropathy (Chronic) PVD (peripheral vascular disease) (Chronic) Chronic ulcer of left foot with fat layer exposed (Chronic) Delayed wound healing (Chronic) Malnutrition (Chronic) Assessment: Left heel ulcer with fat layer exposed, no infection-medial. Left heel ulcer with fascia and muscle layer exposed, no infection-plantar. Left Achilles tendon rupture improving. Peripheral vascular disease. Diabetes with neuropathy. Malnutrition. Other comorbidities. Walking difficulty Plan: Patient was examined and evaluated today. I reviewed and discussed his case. Debridement was performed today as noted in the clinical panel. He has clinical resolution of infection. Advance wound healing prior, epi cord, was applied according to standard protocol after verbal consent was obtained. This is medically necessary for limb salvage. This was further secured in place with a wound veil and Steri-Strips. He tolerated this well. He understands the indications, purpose, and anticipated healing time and management. He understands this is a staged comprehensive wound healing plan and he is still at risk for limb loss. To continue wound VAC: Additional supplies will be requested. To continue strict offloading by wearing a Cam walking boot and using a knee roller, crutches, a walker to keep weight off of the site. Compliance was discussed. He understands this will significantly impair his healing process and he is at risk for limb loss. It is noted he completed a course of antibiotics via PICC line. It is noted his noninvasive vascular studies were abnormal again and he has had previous lower extremity ulcers with significant delayed healing. He saw Dr. Beck and angiogram was performed. I answered all of his questions. To return to clinic in 1 week or call sooner if he has any questions or concerns.
[2019-03-08 08:59] VITALS: BP 147/78; PULSE 86; RESP 18; TEMP 35.8; BMI 28.3
[2019-03-17 08:59] VITALS: BP 125/70; PULSE 79; RESP 18; TEMP 36.3; BMI 28.3
--- NOTE | 2019-03-17 13:03 | PN.PCM_ITS ---
(1) Chronic ulcer of left foot with fat layer exposed Status: Chronic Current Visit: Yes Code(s): L97.522 - Non-pressure chronic ulcer of other part of left foot with fat layer exposed (2) Walking difficulty due to ankle and foot Status: Chronic Current Visit: Yes Code(s): R26.2 - Difficulty in walking, not elsewhere classified (3) Type 2 diabetes mellitus with diabetic polyneuropathy Status: Chronic Current Visit: Yes Code(s): E11.42 - Type 2 diabetes mellitus with diabetic polyneuropathy (4) PVD (peripheral vascular disease) Status: Chronic Current Visit: Yes Code(s): I73.9 - Peripheral vascular di sease, unspecified (5) Delayed wound healing Status: Chronic Current Visit: Yes Code(s): T14.8XXD - Other injury of unspecified body region, subsequent encounter (6) Malnutrition Status: Chronic Current Visit: Yes Code(s): E46 - Unspecified protein- calorie malnutrition Type of Wound Date of Service: 03/17/19 Chief Complaint: Left heel ulcers History of Wound: This 73-year-old male with multiple comorbidities is seen today for left plantar heel ulcer. He had a history of neglected left Achilles tendon rupture that was treated conservatively. He denies fever, chill, nausea, vomiting. He did have previous claudication symptoms. He continues to remain nonweightbearing. He had vascular surgery intervention performed recently with Dr. Beck. He is with his brother today. Progress of Wound: Improving plantar aspect. healed medial aspect - Physical Exam Vital Signs Temp Pulse Resp BP 97.3 F L 79 18 125/70 H 03/17/19 08:59 03/17/19 08:59 03/17/19 08:59 03/17/19 08:59 General: Alert, Oriented x3, Cooperative HEENT: Atraumatic Extremities: No cyanosis, Capillary Refill Less than 3 Seconds, Diminished Peripheral Pulses, Edema - mild and controlled Skin: Ulcer/ Wound - No purulence, erythema, streaking, odor, infection. There is full epithelialization noted to the medial ulcer site and this is healed. There is no fluctuance or bogginess to palpation. Pain is visualized to the plantar aspect and this is granulating in well. There is no maceration or necrosis. The peripheral skin is hairless and atrophic Wound Measurements and Assessment WC - Nurse 1 - General Ulcer Measurement Start: 03/03/19 08:47 Freq: Status: Active Protocol: Activity Type Activity Date Activity User E-Sign Co-Sign Detail Recorded Client Recorded Date Recorded By Document 03/17/19 08:59 RB [id number] 03/17/19 09:15 RB 03/17/19 08:59 Wound Center Nurse 1 [Ulcer Assessment] #2 L Med Heel -Combined with other wound No -Current Size (cm) - Length 1.4 -Current Size (cm) - Width 1 -Current Size (cm) - Depth 0.1 -Total Square Cm 1.4 -Photo Taken No -Tunneling No -Undermining/Tunneling No -Circular Undermining No -Exudate Amt Small -Exudate Type Serosanguineous -Wound Margin Flat & Intact -Granulation Amt Large (67-100%) -Granulation Quality [place] -Slough/Fibrin Yes -Necrosis Amt Small (1-33%) -Necrotic Tissue Type Adherent Slough -Structure Exposed N/A -Texture (Emily-wound Skin Appearance) Assessed -Moisture (Emily-wound Skin Appearance Maceration ) -Color (Emily-wound Skin Appearance) Assessed -Temperature (Emily-wound Skin No Abnormality Appearance) (Pt Warm) -Tenderness on Palpation (Emily-wound No Skin Appearance) -Ulcer Cleansing Rinsed/ Irrigated with Saline -Foul Odor after Cleansing No -Anesthetic Used 5% Lidocaine Gel #1 Left Heel -Combined with other wound No -Current Size (cm) - Length 1 -Current Size (cm) - Width 1.6 -Current Size (cm) - Depth 0.8 -Total Square Cm 1.6 -Tunneling No -Undermining/Tunneling No -Circular Undermining No -Exudate Amt Small -Exudate Type Serosanguineous -Wound Margin Thickened & Rolled Under -Granulation Amt Large (67-100%) -Granulation Quality [place] -Slough/Fibrin Yes -Necrosis Amt Small (1-33%) -Necrotic Tissue Type Adherent Slough -Structure Exposed N/A -Texture (Emily-wound Skin Appearance) Assessed -Moisture (Emily-wound Skin Appearance Maceration ) -Color (Emily-wound Skin Appearance) Assessed -Temperature (Emily-wound Skin No Abnormality Appearance) (Pt Warm) -Tenderness on Palpation (Emily-wound No Skin Appearance) -Ulcer Cleansing Wound Cleanser -Foul Odor after Cleansing No -Anesthetic Used 5% Lidocaine Gel WC - Nurse 2 - General Ulcer CM Notes Start: 03/03/19 08:47 Freq: Status: Active Protocol: Activity Type Activity Date Activity User E-Sign Co-Sign Detail Recorded Client Recorded Date Recorded By Document 03/17/19 09:37 AN [id number] 03/17/19 09:44 AN 03/17/19 09:37 Wound Center Nurse 2 [Procedure/Treatment] -Time 09:38 -Correct Patient Yes -Correct Side, Site, Position Yes -Correct Procedure Yes -Procedure Performed Yes -Type of Procedure Debridement -Clinical Debridement Subcutaneous -Post Debridement Size (cm) - Length 1.1 -Post Debridement Size (cm) - Width 0.7 -Post Debridement Size (cm) - Depth 0.8 -Total Square Cm 0.77 -Wound/Ulcer Outcome Not Healed -Ulcer Cleansing Rinsed/ Irrigated with Saline -Foul Odor after Cleansing No -Bioengineered Tissue Yes -Type of bioengineered Tissue EPIFIX -Bleeding Controlled with Pressure -Offloading Yes -Type of Offloading Knee Walker -Treatment Response Procedure Tolerated Well [See Physician Procedure note for Specifics] Pain Scale: 0-10 Numeric [Pain] -Is Patient Pain Free? Yes Musculoskeletal: No Tenderness to Palpation of Joints or Extremities, Muscle Wasting, - - Compartment soft to palpate. Weakness is noted to the left lower extremity is palpably realigned compared to prior rupture status Neurological: - - lack of normal epicritic sensation light touch is consistent with neuropathy Psych/Mental Status: Normal Affect, Appropriate Debridement Note Post-Debridement Measurements/Treatment - Nurse 2 - General Ulcer CM Notes Start: 03/03/19 08:47 Freq: Status: Active Protocol: Activity Type Activity Date Activity User E-Sign Co-Sign Detail Recorded Client Recorded Date Recorded By Document 03/03/19 09:18 AN [id number] 03/03/19 09:21 AN Document 03/17/19 09:37 AN [id number] 03/17/19 09:44 AN 03/03/19 03/17/19 09:18 09:37 Wound Center Nurse 2 #2 L Med Heel -Time 09:20 -Correct Patient Yes -Correct Side, Site, Position Yes -Correct Procedure Yes -Procedure Performed Yes -Type of Procedure Debridement -Clinical Debridement Subcutaneous -Post Debridement Size (cm) - Length 0.8 -Post Debridement Size (cm) - Width 0.7 -Post Debridement Size (cm) - Depth 0.1 -Total Square Cm 0.56 -Wound/Ulcer Outcome Not Healed -Bioengineered Tissue Yes -Type of bioengineered Tissue EPICORD -Bleeding Controlled with Pressure -Type of Offloading Knee Walker -Treatment Response Procedure Tolerated Well #1 Left Heel -Time 09:20 09:38 -Correct Patient Yes Yes -Correct Side, Site, Position Yes Yes -Correct Procedure Yes Yes -Procedure Performed Yes Yes -Type of Procedure Debridement Debridement -Clinical Debridement Subcutaneous Subcutaneous -Post Debridement Size (cm) - Length 0.9 1.1 -Post Debridement Size (cm) - Width 1.4 0.7 -Post Debridement Size (cm) - Depth 0.5 0.8 -Total Square Cm 1.26 0.77 -Wound/Ulcer Outcome Not Healed Not Healed -Ulcer Cleansing Rinsed/ Rinsed/ Irrigated with Irrigated with Saline Saline -Foul Odor after Cleansing No No -Bioengineered Tissue Yes -Type of bioengineered Tissue EPICORD EPIFIX -Bleeding Controlled with Pressure Pressure -Offloading Yes Yes -Type of Offloading Knee Walker Knee Walker -Treatment Response Procedure Procedure Tolerated Well Tolerated Well Pain Scale: 0-10 Numeric Is Patient Pain Free? Yes Yes Wound debrided: plantar heel Laterality: Left Wound Grade/Stage: grade 3 Type of Debridement: Excisional debridement Anesthesia Used: 5% Lidocaine Gel Depth: in the subcutaneous layer Percentage of wound debrided: 100 Instrument Used: #15 blade Tissue Removed: fibrous, devitalized subcutaneous, biofilm, slough Severity: Fat Layer Exposed Amount of bleeding with debridement: Mild Bleeding Controlled with: Pressure Patient tolerated procedure well Assessment/Plan Active Problems Walking difficulty due to ankle and foot (Chronic) Type 2 diabetes mellitus with diabetic polyneuropathy (Chronic) PVD (peripheral vascular disease) (Chronic) Chronic ulcer of left foot with fat layer exposed (Chronic) Delayed wound healing (Chronic) Malnutrition (Chronic) Assessment: Left heel ulcer with fat layer exposed, no infection-healed today. Left heel ulcer with fascia and muscle layer exposed, no infection-plantar and healing improvement. Left Achilles tendon rupture improving. Peripheral vascular disease. Diabetes with neuropathy. Malnutrition. Other comorbidities. Walking difficulty Plan: It is noted the medial heel ulcer is healed with full epithelialization today. Patient was examined and evaluated today. I reviewed and discussed his case. Debridement was performed today as noted in the clinical panel. He has clinical resolution of infection. Advance wound healing prior, epi cord, was applied according to standard protocol after verbal consent was obtained. This is medically necessary for limb salvage. This was further secured in place with a wound veil and Steri-Strips. He tolerated this well. He understands the indications, purpose, and anticipated healing time and management. He understands this is a staged comprehensive wound healing plan and he is still at risk for limb loss. To continue wound VAC: Additional supplies will be requested. To continue strict offloading by wearing a Cam walking boot and using a knee roller, crutches, a walker to keep weight off of the site. Compliance was discussed. He understands this will significantly impair his healing process and he is at risk for limb loss. It is noted he completed a course of antibiotics via PICC line. It is noted his noninvasive vascular studies were abnormal again and he has had previous lower extremity ulcers with significant delayed healing. He saw Dr. Beck and angiogram was performed. I answered all of his questions. To return to clinic in 1 week or call sooner if he has any questions or concerns.
[2019-03-24 09:32] VITALS: BP 154/89; PULSE 78; RESP 20; TEMP 36.6; BMI 28.3
--- NOTE | 2019-03-24 10:46 | PN.PCM_ITS ---
(1) Chronic ulcer of left foot with fat layer exposed Status: Chronic Current Visit: Yes Code(s): L97.522 - Non-pressure chronic ulcer of other part of left foot with fat layer exposed (2) Walking difficulty due to ankle and foot Status: Chronic Current Visit: Yes Code(s): R26.2 - Difficulty in walking, not elsewhere classified (3) Type 2 diabetes mellitus with diabetic polyneuropathy Status: Chronic Current Visit: Yes Code(s): E11.42 - Type 2 diabetes mellitus with diabetic polyneuropathy (4) PVD (peripheral vascular disease) Status: Chronic Current Visit: Yes Code(s): I73.9 - Peripheral vascular di sease, unspecified (5) Delayed wound healing Status: Chronic Current Visit: Yes Code(s): T14.8XXD - Other injury of unspecified body region, subsequent encounter (6) Malnutrition Status: Chronic Current Visit: Yes Code(s): E46 - Unspecified protein- calorie malnutrition Type of Wound Date of Service: 03/24/19 Chief Complaint: Left heel ulcer History of Wound: This 73-year-old male with multiple comorbidities is seen today for left plantar heel ulcer. He had a history of neglected left Achilles tendon rupture that was treated conservatively. He denies fever, chill, nausea, vomiting. He did have previous claudication symptoms. He continues to remain nonweightbearing. He had vascular surgery intervention performed recently with Dr. Beck. He is with his brother today. Progress of Wound: Improving plantar aspect - Physical Exam Vital Signs Temp Pulse Resp BP 98 F 78 20 H 154/89 H 03/24/19 09:32 03/24/19 09:32 03/24/19 09:32 03/24/19 09:32 General: Alert, Oriented x3, Cooperative, No apparent distress Extremities: No cyanosis, Capillary Refill Less than 3 Seconds, No Calf Tenderness - Negative Abhishek and Irwin sign, Diminished Peripheral Pulses, Edema - Mild Skin: Ulcer/ Wound - Plantar ulcer no purulence, erythema, streaking, odor, infection. The peripheral skin is hairless and atrophic Wound Measurements and Assessment WC - Nurse 1 - General Ulcer Measurement Start: 03/03/19 08:47 Freq: Status: Active Protocol: Activity Type Activity Date Activity User E-Sign Co-Sign Detail Recorded Client Recorded Date Recorded By Document 03/24/19 09:32 DL [id number] 03/24/19 09:41 DL 03/24/19 09:32 Wound Center Nurse 1 [Ulcer Assessment] #1 Left Heel -Current Size (cm) - Length 1.5 -Current Size (cm) - Width 1.6 -Current Size (cm) - Depth 0.6 -Total Square Cm 2.40 -Photo Taken No -Exudate Amt Medium -Exudate Type Serosanguineous -Wound Margin Distinct, Outline Attached -Granulation Amt Medium (34-66%) -Granulation Quality Red -Necrosis Amt Medium (34-66%) -Necrotic Tissue Type Adherent Slough -Structure Exposed N/A -Texture (Emily-wound Skin Appearance) Callus,Scarring -Moisture (Emily-wound Skin Appearance Maceration ) -Color (Emily-wound Skin Appearance) No Abnormality -Temperature (Emily-wound Skin No Abnormality Appearance) (Pt Warm) -Ulcer Cleansing Wound Cleanser -Foul Odor after Cleansing No -Anesthetic Used 5% Lidocaine Gel WC - Nurse 2 - General Ulcer CM Notes Start: 03/03/19 08:47 Freq: Status: Active Protocol: Activity Type Activity Date Activity User E-Sign Co-Sign Detail Recorded Client Recorded Date Recorded By Document 03/24/19 10:17 AN [id number] 03/24/19 10:24 AN 03/24/19 10:17 Wound Center Nurse 2 [Procedure/Treatment] -Time 10:17 -Correct Patient Yes -Correct Side, Site, Position Yes -Correct Procedure Yes -Procedure Performed Yes -Type of Procedure Debridement -Clinical Debridement Subcutaneous -Post Debridement Size (cm) - Length 1.6 -Post Debridement Size (cm) - Width 1.7 -Post Debridement Size (cm) - Depth 0.6 -Total Square Cm 2.72 -Wound/Ulcer Outcome Not Healed -Ulcer Cleansing Rinsed/ Irrigated with Saline -Foul Odor after Cleansing No -Bioengineered Tissue No -Type of bioengineered Tissue EPIFIX -Expiration Date 09/26/23 -Product Lot Number [id number] -Percent Used 100 -Saline Lot Number [id number] -Bleeding Controlled with Pressure -Offloading Yes -Type of Offloading Knee Walker -Treatment Response Procedure Tolerated Well [See Physician Procedure note for Specifics] Pain Scale: 0-10 Numeric [Pain] -Is Patient Pain Free? Yes Musculoskeletal: No Tenderness to Palpation of Joints or Extremities, Muscle Wasting, - Neurological: - - Lack of normal epicritic sensation light touch consistent with neuropathy Psych/Mental Status: Normal Affect, Appropriate Debridement Note Post-Debridement Measurements/Treatment WC - Nurse 2 - General Ulcer CM Notes Start: 03/03/19 08:47 Freq: Status: Active Protocol: Activity Type Activity Date Activity User E-Sign Co-Sign Detail Recorded Client Recorded Date Recorded By Document 03/03/19 09:18 AN [id number] 03/03/19 09:21 AN Document 03/17/19 09:37 AN [id number] 03/17/19 09:44 AN Document 03/24/19 10:17 AN [id number] 03/24/19 10:24 AN 03/03/19 03/17/19 03/24/19 09:18 09:37 10:17 Wound Center Nurse 2 #2 L Med Heel -Time 09:20 -Correct Patient Yes -Correct Side, Site, Position Yes -Correct Procedure Yes -Procedure Performed Yes -Type of Procedure Debridement -Clinical Debridement Subcutaneous -Post Debridement Size (cm) - Length 0.8 -Post Debridement Size (cm) - Width 0.7 -Post Debridement Size (cm) - Depth 0.1 -Total Square Cm 0.56 -Wound/Ulcer Outcome Not Healed -Bioengineered Tissue Yes -Type of bioengineered Tissue EPICORD -Bleeding Controlled with Pressure -Type of Offloading Knee Walker -Treatment Response Procedure Tolerated Well #1 Left Heel -Time 09:20 09:38 10:17 -Correct Patient Yes Yes Yes -Correct Side, Site, Position Yes Yes Yes -Correct Procedure Yes Yes Yes -Procedure Performed Yes Yes Yes -Type of Procedure Debridement Debridement Debridement -Clinical Debridement Subcutaneous Subcutaneous Subcutaneous -Post Debridement Size (cm) - Length 0.9 1.1 1.6 -Post Debridement Size (cm) - Width 1.4 0.7 1.7 -Post Debridement Size (cm) - Depth 0.5 0.8 0.6 -Total Square Cm 1.26 0.77 2.72 -Wound/Ulcer Outcome Not Healed Not Healed Not Healed -Ulcer Cleansing Rinsed/ Rinsed/ Rinsed/ Irrigated with Irrigated with Irrigated with Saline Saline Saline -Foul Odor after Cleansing No No No -Bioengineered Tissue Yes No -Type of bioengineered Tissue EPICORD EPIFIX EPIFIX -Expiration Date 03/01/24 -Product Lot Number [id number] -Percent Used 100 -Saline Lot Number [id number] -Bleeding Controlled with Pressure Pressure Pressure -Offloading Yes Yes Yes -Type of Offloading Knee Walker Knee Walker Knee Walker -Treatment Response Procedure Procedure Procedure Tolerated Well Tolerated Well Tolerated Well Pain Scale: 0-10 Numeric Is Patient Pain Free? Yes Yes Yes Wound debrided: plantar heel Laterality: Left Wound Grade/Stage: grade 3 Type of Debridement: Excisional debridement Anesthesia Used: 5% Lidocaine Gel Depth: in the subcutaneous layer Percentage of wound debrided: 100 Instrument Used: #15 blade Tissue Removed: fibrous, devitalized subcutaneous tissue, biofilm, slough Severity: Fat Layer Exposed Amount of bleeding with debridement: Mild Bleeding Controlled with: Pressure Patient tolerated procedure well Assessment/Plan Active Problems Walking difficulty due to ankle and foot (Chronic) Type 2 diabetes mellitus with diabetic polyneuropathy (Chronic) PVD (peripheral vascular disease) (Chronic) Chronic ulcer of left foot with fat layer exposed (Chronic) Delayed wound healing (Chronic) Malnutrition (Chronic) Assessment: Left heel ulcer with fat layer exposed, no infection-healed today. Left heel ulcer with fascia and muscle layer exposed, no infection-plantar and healing improvement. Left Achilles tendon rupture improving. Peripheral vascular disease. Diabetes with neuropathy. Malnutrition. Other comorbidities. Walking difficulty Plan: Patient was examined and evaluated today. I reviewed and discussed his case. Debridement was performed today as noted in the clinical panel. He has clinical resolution of infection. Advance wound healing prior, epi cord, was applied according to standard protocol after verbal consent was obtained. This is medically necessary for limb salvage. This was further secured in place with adaptic touch. He tolerated this well. He understands the indications, purpose, and anticipated healing time and management. He understands this is a staged comprehensive wound healing plan and he is still at risk for limb loss. To discontinue wound VAC for this upcoming week. Additional use will be considered at his follow-up. To continue strict offloading by wearing a Cam walking boot and using a knee roller, crutches, a walker to keep weight off of the site. Compliance was discussed. He understands this will significantly impair his healing process and he is at risk for limb loss. It is noted he completed a course of antibiotics via PICC line. It is noted his noninvasive vascular studies were abnormal again and he has had previous lower extremity ulcers with significant delayed healing. He saw Dr. Beck and angiogram was performed. I answered all of his questions. To return to clinic in 1 week or call sooner if he has any questions or concerns.
== END 2019-03-27 23:59 ==
LOC: WC 09:30
PROVIDERS: Family Provider Family Medicine; PCP Family Medicine; Referring Provider Podiatrist; Visit Provider Podiatrist
DX: E11.621 Type 2 diabetes mellitus with foot ulcer (principal); E11.42 Type 2 diabetes mellitus with diabetic polyneuropathy; E11.51 Type 2 diabetes mellitus with diabetic peripheral angiopathy without gangrene; L97.422 Non-pressure chronic ulcer of left heel and midfoot with fat layer exposed; R26.2 Difficulty in walking, not elsewhere classified
CPT/HCPCS: 15275; 97605; 99212; Q4187; G0463

== ENCOUNTER 2019-04-21 08:15 | Outpatient (RCR) | payer MEDICARE, SELFPAY ==
[2019-03-28 00:39] VITALS: BP 154/89; PULSE 78; RESP 20; TEMP 36.6
[2019-03-31 08:22] VITALS: BP 157/80; PULSE 78; RESP 16; TEMP 36.2; BMI 28.3
--- NOTE | 2019-03-31 09:22 | PCM.WC.PN ---
(1) Chronic ulcer of left foot with fat layer exposed Status: Chronic Current Visit: Yes Code(s): L97.522 - Non-pressure chronic ulcer of other part of left foot with fat layer exposed (2) Type 2 diabetes mellitus with diabetic polyneuropathy Status: Chronic Current Visit: Yes Code(s): E11.42 - Type 2 diabetes mellitus with diabetic polyneuropathy (3) PVD (peripheral vascular disease) Status: Chronic Current Visit: Yes Code(s): I73.9 - Peripheral vascular disease, unspecified (4) Achilles rupture, left Status: Chronic Current Visit: Yes Qualifiers: Code(s): S86.012A - Strain of left Achilles tendon, initial encounter (5) Delayed wound healing Status: Chronic Current Visit: Yes Code(s): T14.8XXD - Other injury of unspecified body region, subsequent encounter (6) Malnutrition Status: Chronic Current Visit: Yes Code(s): E46 - Unspecified protein-calorie malnutrition Type of Wound Date of Service: 03/31/19 Chief Complaint: Left heel ulcer History of Wound: This 73-year-old male with multiple comorbidities is seen today for left plantar heel ulcer. He had a history of neglected left Achilles tendon rupture that was treated conservatively. He denies fever, chill, nausea, vomiting. He did have previous claudication symptoms. He continues to remain nonweightbearing. He had vascular surgery intervention performed recently with Dr. Beck. He is with his brother today. Progress of Wound: Improving plantar aspect - Physical Exam Vital Signs Temp Pulse Resp BP 97.1 F L 78 16 157/80 H 03/31/19 08:22 03/31/19 08:22 03/31/19 08:22 03/31/19 08:22 General: Alert, Oriented x3, Cooperative, No apparent distress Extremities: No cyanosis, Capillary Refill Less than 3 Seconds, No Calf Tenderness, Diminished Peripheral Pulses, Edema - Mild Skin: Ulcer/ Wound - No purulence, erythema, string, odor, infection. The ulcer bed is granular and there is peripheral callus noted. There is exposed plantar fascia with improving granulation tissue interspersed. The peripheral skin is hairless and atrophic. Wound Measurements and Assessment WC - Nurse 1 - General Ulcer Measurement Start: 03/31/19 08:22 Freq: Status: Active Protocol: Activity Type Activity Date Activity User E-Sign Co-Sign Detail Recorded Client Recorded Date Recorded By Document 03/31/19 08:22 MT [id number] 03/31/19 08:33 MT 03/31/19 08:22 Wound Center Nurse 1 [Ulcer Assessment] #1 Left Heel -Current Size (cm) - Length 1.8 -Current Size (cm) - Width 2.0 -Current Size (cm) - Depth 0.9 -Total Square Cm 3.60 -Circular Undermining Yes -Wound Margin Thickened & Rolled Under -Granulation Amt Medium (34-66%) -Granulation Quality Pale,[place] -Necrosis Amt Medium (34-66%) -Necrotic Tissue Type Adherent Slough -Texture (Emily-wound Skin Appearance) Assessed,Callus -Moisture (Emily-wound Skin Appearance Assessed, ) Maceration -Color (Emily-wound Skin Appearance) Assessed -Temperature (Emily-wound Skin No Abnormality Appearance) (Pt Warm) -Tenderness on Palpation (Emily-wound No Skin Appearance) -Ulcer Cleansing Wound Cleanser -Foul Odor after Cleansing No -Anesthetic Used 5% Lidocaine Gel [Edema Assessment] -Lower Limb Edema Present NA WC - Nurse 2 - General Ulcer CM Notes Start: 03/31/19 08:22 Freq: Status: Active Protocol: Activity Type Activity Date Activity User E-Sign Co-Sign Detail Recorded Client Recorded Date Recorded By Document 03/31/19 08:51 AN [id number] 03/31/19 08:55 AN 03/31/19 08:51 Wound Center Nurse 2 [Procedure/Treatment] #1 Left Heel -Time 08:52 -Correct Patient Yes -Correct Side, Site, Position Yes -Correct Procedure Yes -Procedure Performed Yes -Type of Procedure Debridement -Clinical Debridement Subcutaneous -Post Debridement Size (cm) - Length 1.9 -Post Debridement Size (cm) - Width 2.1 -Post Debridement Size (cm) - Depth 0.9 -Total Square Cm 3.99 -Wound/Ulcer Outcome Not Healed -Ulcer Cleansing Rinsed/ Irrigated with Saline -Foul Odor after Cleansing No -Bioengineered Tissue No -Bleeding Controlled with Pressure -Offloading Yes -Type of Offloading Knee Walker -Treatment Response Procedure Tolerated Well [See Physician Procedure note for Specifics] Pain Scale: 0-10 Numeric [Pain] -Is Patient Pain Free? Yes Musculoskeletal: No Tenderness to Palpation of Joints or Extremities, Muscle Wasting Neurological: - - Lack of normal epicritic sensation at this with neuropathy Psych/Mental Status: Normal Affect, Appropriate Debridement Note Post-Debridement Measurements/Treatment WC - Nurse 2 - General Ulcer CM Notes Start: 03/31/19 08:22 Freq: Status: Active Protocol: Activity Type Activity Date Activity User E-Sign Co-Sign Detail Recorded Client Recorded Date Recorded By Document 03/31/19 08:51 AN [id number] 03/31/19 08:55 AN 03/31/19 08:51 Wound Center Nurse 2 #1 Left Heel -Time 08:52 -Correct Patient Yes -Correct Side, Site, Position Yes -Correct Procedure Yes -Procedure Performed Yes -Type of Procedure Debridement -Clinical Debridement Subcutaneous -Post Debridement Size (cm) - Length 1.9 -Post Debridement Size (cm) - Width 2.1 -Post Debridement Size (cm) - Depth 0.9 -Total Square Cm 3.99 -Wound/Ulcer Outcome Not Healed -Ulcer Cleansing Rinsed/ Irrigated with Saline -Foul Odor after Cleansing No -Bioengineered Tissue No -Bleeding Controlled with Pressure -Offloading Yes -Type of Offloading Knee Walker -Treatment Response Procedure Tolerated Well Pain Scale: 0-10 Numeric Is Patient Pain Free? Yes Wound debrided: plantar heel Laterality: Left Wound Grade/Stage: grade 3 Type of Debridement: Excisional debridement Anesthesia Used: 5% Lidocaine Gel Depth: in the subcutaneous layer Percentage of wound debrided: 100 Instrument Used: #15 blade Tissue Removed: fibrous, devitalized subcutaneous, biofilm, slough Severity: Fat Layer Exposed Amount of bleeding with debridement: Mild Bleeding Controlled with: Pressure Patient tolerated procedure well Assessment/Plan Active Problems Type 2 diabetes mellitus with diabetic polyneuropathy (Chronic) PVD (peripheral vascular disease) (Chronic) Chronic ulcer of left foot with fat layer exposed (Chronic) Achilles rupture, left (Chronic) Delayed wound healing (Chronic) Malnutrition (Chronic) Assessment: Left heel ulcer with fascia and muscle layer exposed, no infection-plantar and healing improvement. Left Achilles tendon rupture improving. Peripheral vascular disease. Diabetes with neuropathy. Malnutrition. Other comorbidities. Walking difficulty Plan: Patient was examined and evaluated today. I reviewed and discussed his case. Debridement was performed today as noted in the clinical panel. He has clinical resolution of infection. Joana was applied today and he was advised to changes daily. Advance wound healing prior, epi cord, will likely be reapplied next week. This is medically necessary for limb salvage. This was further secured in place with adaptic touch. He tolerated this well. He understands the indications, purpose, and anticipated healing time and management. He understands this is a staged comprehensive wound healing plan and he is still at risk for limb loss. I recommend transitioning into a portable carmella wound VAC and prior authorization will be initiated for this. The benefits were discussed and this is more user-friendly. To continue strict offloading by wearing a Cam walking boot and using a knee roller, crutches, a walker to keep weight off of the site. Compliance was discussed. He understands this will significantly impair his healing process and he is at risk for limb loss. It is noted he completed a course of antibiotics via PICC line. It is noted his noninvasive vascular studies were abnormal again and he has had previous lower extremity ulcers with significant delayed healing. He saw Dr. Beck and angiogram was performed. I answered all of his questions. To return to clinic in 1 week or call sooner if he has any questions or concerns.
[2019-04-07 08:34] VITALS: BP 144/78; PULSE 91; RESP 18; TEMP 36.6; BMI 28.3
--- NOTE | 2019-04-07 09:34 | PCM.WC.PN ---
(1) Chronic ulcer of left foot with fat layer exposed Status: Chronic Code(s): L97.522 - Non-pressure chronic ulcer of other part of left foot with fat layer exposed (2) Type 2 diabetes mellitus with diabetic polyneuropathy Status: Chronic Code(s): E11.42 - Type 2 diabetes mellitus with diabetic polyneuropathy (3) PVD (peripheral vascular disease) Status: Chronic Code(s): I73.9 - Peripheral vascular disease, unspecified (4) Achilles rupture, left Status: Chronic Qualifiers: Code(s): S86.012A - Strain of left Achilles tendon, initial encounter (5) Delayed wound healing Status: Chronic Code(s): T14.8XXD - Other injury of unspecified body region, subsequent encounter (6) Malnutrition Status: Chronic Code(s): E46 - Unspecified protein-calorie malnutrition Type of Wound Date of Service: 04/07/19 Chief Complaint: Left heel ulcer History of Wound: This 73-year-old male with multiple comorbidities is seen today for left plantar heel ulcer. He had a history of neglected left Achilles tendon rupture that was treated conservatively. He denies fever, chill, nausea, vomiting. He did have previous claudication symptoms. He continues to remain nonweightbearing. He had vascular surgery intervention performed recently with Dr. Beck. He is with his brother today. Progress of Wound: Improving - Physical Exam Vital Signs Temp Pulse Resp BP 97.8 F 91 18 144/78 H 04/07/19 08:34 04/07/19 08:34 04/07/19 08:34 04/07/19 08:34 General: Alert, Oriented x3, Cooperative, No apparent distress Extremities: No cyanosis, Capillary Refill Less than 3 Seconds, No Calf Tenderness - negative bharti and gusman, Diminished Peripheral Pulses, Edema - mild Skin: Ulcer/ Wound - no purulence, no erythema, no streaking Wound Measurements and Assessment WC - Nurse 1 - General Ulcer Measurement Start: 03/31/19 08:22 Freq: Status: Active Protocol: Activity Type Activity Date Activity User E-Sign Co-Sign Detail Recorded Client Recorded Date Recorded By Document 04/07/19 08:34 DL [id number] 04/07/19 08:40 DL 04/07/19 08:34 Wound Center Nurse 1 [Ulcer Assessment] #1 Left Heel -Current Size (cm) - Length 1.8 -Current Size (cm) - Width 2.8 -Current Size (cm) - Depth 0.9 -Total Square Cm 5.04 -Photo Taken No -Exudate Amt Small -Exudate Type Serosanguineous -Wound Margin Thickened -Granulation Amt Small (1-33%) -Granulation Quality [place] -Necrosis Amt Large (67-100%) -Necrotic Tissue Type Adherent Slough -Structure Exposed N/A -Texture (Emily-wound Skin Appearance) Callus,Scarring -Moisture (Emily-wound Skin Appearance Maceration,Dry/ ) Scaly -Color (Emily-wound Skin Appearance) No Abnormality, Rubor -Temperature (Emily-wound Skin No Abnormality Appearance) (Pt Warm) -Tenderness on Palpation (Emily-wound No Skin Appearance) -Ulcer Cleansing Wound Cleanser -Foul Odor after Cleansing No -Anesthetic Used 4% Lidocaine Solution WC - Nurse 2 - General Ulcer CM Notes Start: 03/31/19 08:22 Freq: Status: Active Protocol: Activity Type Activity Date Activity User E-Sign Co-Sign Detail Recorded Client Recorded Date Recorded By Document 04/07/19 08:55 DL [id number] 04/07/19 08:59 DL 04/07/19 08:55 Wound Center Nurse 2 [Procedure/Treatment] -Time 08:58 -Correct Patient Yes -Correct Side, Site, Position Yes -Correct Procedure Yes -Procedure Performed Yes -Type of Procedure Debridement -Clinical Debridement Subcutaneous -Post Debridement Size (cm) - Length 1.9 -Post Debridement Size (cm) - Width 2.9 -Post Debridement Size (cm) - Depth 0.9 -Total Square Cm 5.51 -Wound/Ulcer Outcome Not Healed -Ulcer Cleansing Rinsed/ Irrigated with Saline -Foul Odor after Cleansing No -Bioengineered Tissue No -Bleeding Controlled with Pressure -Offloading Yes -Type of Offloading Knee Walker -Treatment Response Procedure Tolerated Well [See Physician Procedure note for Specifics] Pain Scale: 0-10 Numeric [Pain] -Is Patient Pain Free? Yes Musculoskeletal: No Tenderness to Palpation of Joints or Extremities, Muscle Wasting Neurological: - - Lack of epicritic sensation to light touch is consistent with neuropathy Psych/Mental Status: Normal Affect, Appropriate Debridement Note Post-Debridement Measurements/Treatment WC - Nurse 2 - General Ulcer CM Notes Start: 09/04/19 08:22 Freq: Status: Active Protocol: Activity Type Activity Date Activity User E-Sign Co-Sign Detail Recorded Client Recorded Date Recorded By Document 03/31/19 08:51 AN [id number] 03/31/19 08:55 AN Document 04/07/19 08:55 DL [id number] 04/07/19 08:59 DL 03/31/19 04/07/19 08:51 08:55 Wound Center Nurse 2 #1 Left Heel -Time 08:52 08:58 -Correct Patient Yes Yes -Correct Side, Site, Position Yes Yes -Correct Procedure Yes Yes -Procedure Performed Yes Yes -Type of Procedure Debridement Debridement -Clinical Debridement Subcutaneous Subcutaneous -Post Debridement Size (cm) - Length 1.9 1.9 -Post Debridement Size (cm) - Width 2.1 2.9 -Post Debridement Size (cm) - Depth 0.9 0.9 -Total Square Cm 3.99 5.51 -Wound/Ulcer Outcome Not Healed Not Healed -Ulcer Cleansing Rinsed/ Rinsed/ Irrigated with Irrigated with Saline Saline -Foul Odor after Cleansing No No -Bioengineered Tissue No No -Bleeding Controlled with Pressure Pressure -Offloading Yes Yes -Type of Offloading Knee Walker Knee Walker -Treatment Response Procedure Procedure Tolerated Well Tolerated Well Pain Scale: 0-10 Numeric Is Patient Pain Free? Yes Yes Wound debrided: plantar heel Laterality: Left - g Wound Grade/Stage: grade 3 Type of Debridement: Excisional debridement Anesthesia Used: 5% Lidocaine Gel Depth: in the subcutaneous layer Percentage of wound debrided: 100 Instrument Used: #15 blade Tissue Removed: fibrous, devitalized subcutaneous, biofilm, slough Severity: Fat Layer Exposed Amount of bleeding with debridement: Mild Bleeding Controlled with: Pressure Patient tolerated procedure well Assessment/Plan Assessment: Left heel ulcer with fascia and muscle layer exposed, no infection-plantar and healing improvement. Left Achilles tendon rupture improving. Peripheral vascular disease. Diabetes with neuropathy. Malnutrition. Other comorbidities. Walking difficulty Plan: Patient was examined and evaluated today. I reviewed and discussed his case. Debridement was performed today as noted in the clinical panel. He has clinical resolution of infection. Joana was applied today and he was advised to changes daily. I recommend application of carmella wound VAC and prior authorization is still pending. The indication purpose of this to apply negative pressure therapy to promote faster granulation tissue formation and the deeper deficit was discussed. He understands this is a staged comprehensive wound healing plan and he is still at risk for limb loss. The benefits were discussed and this is more user-friendly. To continue strict offloading by wearing a Cam walking boot and using a knee roller, crutches, a walker to keep weight off of the site. Compliance was discussed. He understands this will significantly impair his healing process and he is at risk for limb loss. It is noted he completed a course of antibiotics via PICC line. It is noted his noninvasive vascular studies were abnormal again and he has had previous lower extremity ulcers with significant delayed healing. He saw Dr. Beck and angiogram was performed. I answered all of his questions. To return to clinic in 1 week or call sooner if he has any questions or concerns.
[2019-04-14 08:27] VITALS: BP 156/91; PULSE 86; RESP 18; TEMP 35.8; BMI 28.3
--- NOTE | 2019-04-14 10:31 | PN.PCM_ITS ---
(1) Chronic ulcer of left foot with fat layer exposed Status: Chronic Current Visit: Yes Code(s): L97.522 - Non-pressure chronic ulcer of other part of left foot with fat layer exposed (2) Type 2 diabetes mellitus with diabetic polyneuropathy Status: Chronic Current Visit: Yes Code(s): E11.42 - Type 2 diabetes mellitus with diabetic polyneuropathy (3) PVD (peripheral vascular disease) Status: Chronic Current Visit: Yes Code(s): I73.9 - Peripheral vascular disease, unspecified (4) Achilles rupture, left Status: Chronic Current Visit: Yes Qualifiers: Code(s): S86.012A - Strain of left Achilles tendon, initial encounter (5) Delayed wound healing Status: Chronic Current Visit: Yes Code(s): T14.8XXD - Other injury of unspecified body region, subsequent encounter (6) Malnutrition Status: Chronic Current Visit: Yes Code(s): E46 - Unspecified protein- calorie malnutrition Type of Wound Date of Service: 04/14/19 Chief Complaint: Left heel ulcer History of Wound: This 73-year-old male with multiple comorbidities is seen today for left plantar heel ulcer. He had a history of neglected left Achilles tendon rupture that was treated conservatively. He denies fever, chill, nausea, vomiting. He did have previous claudication symptoms. He continues to remain nonweightbearing. He had vascular surgery intervention performed recently with Dr. Beck. He is with his brother today. Progress of Wound: Improving - Physical Exam Vital Signs Temp Pulse Resp BP 96.4 F L 86 18 156/91 H 04/14/19 08:27 04/14/19 08:27 04/14/19 08:27 04/14/19 08:27 General: Alert, Oriented x3, Cooperative, No apparent distress Extremities: No cyanosis, Capillary Refill Less than 3 Seconds, No Calf Tenderness, Diminished Peripheral Pulses, Edema - No Skin: Ulcer/ Wound - No purulence, erythema, streaking, odor, exposed deep tissue. The peripheral skin is hairless and atrophic. Wound Measurements and Assessment WC - Nurse 1 - General Ulcer Measurement Start: 03/31/19 08:22 Freq: Status: Active Protocol: Activity Type Activity Date Activity User E-Sign Co-Sign Detail Recorded Client Recorded Date Recorded By Document 04/14/19 08:27 JF [id number] 04/14/19 08:28 GAGE 04/14/19 08:27 Wound Center Nurse 1 [Ulcer Assessment] #1 Left Heel -Combined with other wound No -Current Size (cm) - Length 1.7 -Current Size (cm) - Width 1.8 -Current Size (cm) - Depth 1.0 -Total Square Cm 3.06 -Photo Taken No -Epithelialization Small 1-33% -Tunneling No -Undermining/Tunneling No -Circular Undermining No -Exudate Amt Medium -Exudate Type Serosanguineous -Wound Margin Flat & Intact -Granulation Amt Medium (34-66%) -Granulation Quality Red -Slough/Fibrin Yes -Necrosis Amt Medium (34-66%) -Necrotic Tissue Type Adherent Slough -Structure Exposed N/A -Texture (Emily-wound Skin Appearance) Assessed,Callus -Moisture (Emily-wound Skin Appearance Assessed,Dry/ ) Scaly -Color (Emily-wound Skin Appearance) Assessed -Temperature (Emily-wound Skin No Abnormality Appearance) (Pt Warm) -Tenderness on Palpation (Emily-wound No Skin Appearance) -Ulcer Cleansing Rinsed/ Irrigated with Saline -Foul Odor after Cleansing No -Anesthetic Used 4% Lidocaine Solution [Edema Assessment] -Lower Limb Edema Present NA WC - Nurse 2 - General Ulcer CM Notes Start: 03/31/19 08:22 Freq: Status: Active Protocol: Activity Type Activity Date Activity User E-Sign Co-Sign Detail Recorded Client Recorded Date Recorded By Document 04/14/19 08:58 AN [id number] 04/14/19 09:08 AN 04/14/19 08:58 Wound Center Nurse 2 [Procedure/Treatment] #1 Left Heel -Time 09:06 -Correct Patient Yes -Correct Side, Site, Position Yes -Correct Procedure Yes -Procedure Performed Yes -Type of Procedure Debridement -Clinical Debridement Subcutaneous -Post Debridement Size (cm) - Length 1.8 -Post Debridement Size (cm) - Width 1.9 -Post Debridement Size (cm) - Depth 1.0 -Total Square Cm 3.42 -Wound/Ulcer Outcome Not Healed -Ulcer Cleansing Rinsed/ Irrigated with Saline -Foul Odor after Cleansing No -Bioengineered Tissue No -Bleeding Controlled with Pressure -Offloading Yes -Treatment Response Procedure Tolerated Well [See Physician Procedure note for Specifics] Pain Scale: 0-10 Numeric [Pain] -Is Patient Pain Free? Yes Musculoskeletal: No Tenderness to Palpation of Joints or Extremities, Muscle Wasting Neurological: - - Lack of epicritic sensation light touch consistent with n europathy status Psych/Mental Status: Normal Affect, Appropriate Debridement Note Post-Debridement Measurements/Treatment WC - Nurse 2 - General Ulcer CM Notes Start: 03/31/19 08:22 Freq: Status: Active Protocol: Activity Type Activity Date Activity User E-Sign Co-Sign Detail Recorded Client Recorded Date Recorded By Document 03/31/19 08:51 AN [id number] 03/31/19 08:55 AN Document 04/07/19 08:55 DL [id number] 04/07/19 08:59 DL Document 04/14/19 08:58 AN [id number] 04/14/19 09:08 AN 03/31/19 04/07/19 04/14/19 08:51 08:55 08:58 Wound Center Nurse 2 #1 Left Heel -Time 08:52 08:58 09:06 -Correct Patient Yes Yes Yes -Correct Side, Site, Position Yes Yes Yes -Correct Procedure Yes Yes Yes -Procedure Performed Yes Yes Yes -Type of Procedure Debridement Debridement Debridement -Clinical Debridement Subcutaneous Subcutaneous Subcutaneous -Post Debridement Size (cm) - Length 1.9 1.9 1.8 -Post Debridement Size (cm) - Width 2.1 2.9 1.9 -Post Debridement Size (cm) - Depth 0.9 0.9 1.0 -Total Square Cm 3.99 5.51 3.42 -Wound/Ulcer Outcome Not Healed Not Healed Not Healed -Ulcer Cleansing Rinsed/ Rinsed/ Rinsed/ Irrigated with Irrigated with Irrigated with Saline Saline Saline -Foul Odor after Cleansing No No No -Bioengineered Tissue No No No -Bleeding Controlled with Pressure Pressure Pressure -Offloading Yes Yes Yes -Type of Offloading Knee Walker Knee Walker -Treatment Response Procedure Procedure Procedure Tolerated Well Tolerated Well Tolerated Well Pain Scale: 0-10 Numeric Is Patient Pain Free? Yes Yes Yes Wound debrided: plantar heel Laterality: Left Wound Grade/Stage: grade 3 Type of Debridement: Excisional debridement Anesthesia Used: 5% Lidocaine Gel Depth: in the subcutaneous layer Percentage of wound debrided: 100 Instrument Used: #15 blade Tissue Removed: fibrous, devitalized subcutaneous, biofilm, slough Severity: Fat Layer Exposed Amount of bleeding with debridement: Mild Bleeding Controlled with: Pressure Patient tolerated procedure well Assessment/Plan Active Problems Type 2 diabetes mellitus with diabetic polyneuropathy (Chronic) PVD (peripheral vascular disease) (Chronic) Chronic ulcer of left foot with fat layer exposed (Chronic) Achilles rupture, left (Chronic) Delayed wound healing (Chronic) Malnutrition (Chronic) Assessment: Left heel ulcer with fascia and muscle layer exposed, no infection- plantar and healing improvement. Left Achilles tendon rupture improving. Peripheral vascular disease. Diabetes with neuropathy. Malnutrition. Other comorbidities. Walking difficulty Plan: Patient was examined and evaluated today. I reviewed and discussed his case. Debridement was performed today as noted in the clinical panel. He has clinical resolution of infection. Advanced wound healing product, epi-cord, was applied today according standard protocol. This was covered with a wound veil and secured with Steri-Strips. Verbal consent was obtained prior to performing this procedure and he tolerated this well. The indication, planned benefits, anticipated healing time and management were discussed again today. This is medically necessary for limb salvage. I recommend application of carmella wound VAC and this was applied today according standard protocol. The indication purpose of this to apply negative pressure therapy to promote faster granulation tissue formation and the deeper deficit was discussed. He understands this is a staged comprehensive wound healing plan and he is still at risk for limb loss. The benefits were discussed and this is more user-friendly. To continue strict offloading by wearing a Cam walking boot and using a knee roller, crutches, a walker to keep weight off of the site. Compliance was discussed. He understands this will significantly impair his healing process and he is at risk for limb loss. It is noted he completed a course of antibiotics via PICC line. It is noted his noninvasive vascular studies were abnormal again and he has had previous lower extremity ulcers with significant delayed healing. He saw Dr. Beck and angiogram was performed. I answered all of his questions. To return to clinic in 1 week or call sooner if he has any questions or concerns.
[2019-04-21 08:41] VITALS: BP 149/80; PULSE 81; RESP 16; TEMP 36; BMI 28.3
--- NOTE | 2019-04-21 18:14 | PN.PCM_ITS ---
(1) Chronic ulcer of left foot with fat layer exposed Status: Chronic Current Visit: Yes Code(s): L97.522 - Non-pressure chronic ulcer of other part of left foot with fat layer exposed (2) Type 2 diabetes mellitus with diabetic polyneuropathy Status: Chronic Current Visit: Yes Code(s): E11.42 - Type 2 diabetes mellitus with diabetic polyneuropathy (3) PVD (peripheral vascular disease) Status: Chronic Current Visit: Yes Code(s): I73.9 - Peripheral vascular disease, unspecified (4) Achilles rupture, left Status: Chronic Current Visit: Yes Qualifiers: Code(s): S86.012A - Strain of left Achilles tendon, initial encounter (5) Delayed wound healing Status: Chronic Current Visit: Yes Code(s): T14.8XXD - Other injury of unspecified body region, subsequent encounter (6) Malnutrition Status: Chronic Current Visit: Yes Code(s): E46 - Unspecified protein- calorie malnutrition Type of Wound Date of Service: 04/21/19 Chief Complaint: Left heel ulcer History of Wound: This 73-year-old male with multiple comorbidities is seen today for left plantar heel ulcer. He had a history of neglected left Achilles tendon rupture that was treated conservatively. He denies fever, chill, nausea, vomiting. He did have previous claudication symptoms. He continues to remain nonweightbearing. He had vascular surgery intervention performed recently with Dr. Beck. He is with his brother today. Progress of Wound: Improving - Physical Exam Vital Signs Temp Pulse Resp BP 96.8 F L 81 16 149/80 H 04/21/19 08:41 04/21/19 08:41 04/21/19 08:41 04/21/19 08:41 General: Alert, Oriented x3, Cooperative, No apparent distress HEENT: Atraumatic Extremities: No cyanosis, Capillary Refill Less than 3 Seconds, No Calf Tenderness - Negative Abhishek and Irwin sign left, Diminished Peripheral Pulses, Edema - Mild Skin: Ulcer/ Wound - No purulence, erythema, streaking, odor, infection. The peripheral skin is hairless and atrophic. There is diminished exposure of the plantar fascial band at this time and is no positive probe to bone Wound Measurements and Assessment WC - Nurse 1 - General Ulcer Measurement Start: 03/31/19 08:22 Freq: Status: Active Protocol: Activity Type Activity Date Activity User E-Sign Co-Sign Detail Recorded Client Recorded Date Recorded By Document 04/21/19 08:41 GAGE [id number] 04/21/19 08:42 GAGE 04/21/19 08:41 Wound Center Nurse 1 [Ulcer Assessment] #1 Left Heel -Combined with other wound No -Current Size (cm) - Length 1.8 -Current Size (cm) - Width 1.2 -Current Size (cm) - Depth 0.8 -Total Square Cm 2.16 -Photo Taken No -Epithelialization Small 1-33% -Tunneling No -Undermining/Tunneling No -Circular Undermining No -Exudate Amt Small -Exudate Type Serosanguineous -Wound Margin Flat & Intact -Granulation Amt Large (67-100%) -Granulation Quality Red -Slough/Fibrin Yes -Necrosis Amt Small (1-33%) -Necrotic Tissue Type Adherent Slough -Structure Exposed N/A -Texture (Emily-wound Skin Appearance) Assessed,Callus -Moisture (Emily-wound Skin Appearance Assessed,Dry/ ) Scaly -Color (Emily-wound Skin Appearance) Assessed -Temperature (Emily-wound Skin No Abnormality Appearance) (Pt Warm) -Tenderness on Palpation (Emily-wound No Skin Appearance) -Ulcer Cleansing Wound Cleanser -Foul Odor after Cleansing No -Anesthetic Used 4% Lidocaine Solution [Edema Assessment] -Lower Limb Edema Present Yes -Left Calf (cm) 34.2 -Left Ankle (cm) 21.5 WC - Nurse 2 - General Ulcer CM Notes Start: 03/31/19 08:22 Freq: Status: Active Protocol: Activity Type Activity Date Activity User E-Sign Co-Sign Detail Recorded Client Recorded Date Recorded By Document 04/21/19 09:07 AN [id number] 04/21/19 09:10 AN 04/21/19 09:07 Wound Center Nurse 2 [Procedure/Treatment] #1 Left Heel -Time 09:09 -Correct Patient Yes -Correct Side, Site, Position Yes -Correct Procedure Yes -Procedure Performed Yes -Type of Procedure Debridement -Clinical Debridement Subcutaneous -Post Debridement Size (cm) - Length 1.9 -Post Debridement Size (cm) - Width 1.2 -Post Debridement Size (cm) - Depth 0.8 -Total Square Cm 2.28 -Wound/Ulcer Outcome Not Healed -Ulcer Cleansing Rinsed/ Irrigated with Saline -Foul Odor after Cleansing No -Bioengineered Tissue No -Bleeding Controlled with Pressure -Offloading Yes -Type of Offloading Knee Walker -Treatment Response Procedure Tolerated Well [See Physician Procedure note for Specifics] Pain Scale: 0-10 Numeric [Pain] -Is Patient Pain Free? Yes Musculoskeletal: No Tenderness to Palpation of Joints or Extremities, Muscle Wasting Neurological: - - Lack of normal epicritic sensation light touch consistent with neuropathy Psych/Mental Status: Normal Affect, Appropriate Debridement Note Post-Debridement Measurements/Treatment WC - Nurse 2 - General Ulcer CM Notes Start: 03/31/19 08:22 Freq: Status: Active Protocol: Activity Type Activity Date Activity User E-Sign Co-Sign Detail Recorded Client Recorded Date Recorded By Document 03/31/19 08:51 AN [id number] 03/31/19 08:55 AN Document 04/07/19 08:55 DL [id number] 04/07/19 08:59 DL Document 04/14/19 08:58 AN [id number] 04/14/19 09:08 AN Document 04/21/19 09:07 AN [id number] 04/21/19 09:10 AN 03/31/19 04/07/19 04/14/19 08:51 08:55 08:58 Wound Center Nurse 2 #1 Left Heel -Time 08:52 08:58 09:06 -Correct Patient Yes Yes Yes -Correct Side, Site, Position Yes Yes Yes -Correct Procedure Yes Yes Yes -Procedure Performed Yes Yes Yes -Type of Procedure Debridement Debridement Debridement -Clinical Debridement Subcutaneous Subcutaneous Subcutaneous -Post Debridement Size (cm) - Length 1.9 1.9 1.8 -Post Debridement Size (cm) - Width 2.1 2.9 1.9 -Post Debridement Size (cm) - Depth 0.9 0.9 1.0 -Total Square Cm 3.99 5.51 3.42 -Wound/Ulcer Outcome Not Healed Not Healed Not Healed -Ulcer Cleansing Rinsed/ Rinsed/ Rinsed/ Irrigated with Irrigated with Irrigated with Saline Saline Saline -Foul Odor after Cleansing No No No -Bioengineered Tissue No No No -Bleeding Controlled with Pressure Pressure Pressure -Offloading Yes Yes Yes -Type of Offloading Knee Walker Knee Walker -Treatment Response Procedure Procedure Procedure Tolerated Well Tolerated Well Tolerated Well Pain Scale: 0-10 Numeric Is Patient Pain Free? Yes Yes Yes 04/21/19 09:07 Wound Center Nurse 2 #1 Left Heel -Time 09:09 -Correct Patient Yes -Correct Side, Site, Position Yes -Correct Procedure Yes -Procedure Performed Yes -Type of Procedure Debridement -Clinical Debridement Subcutaneous -Post Debridement Size (cm) - Length 1.9 -Post Debridement Size (cm) - Width 1.2 -Post Debridement Size (cm) - Depth 0.8 -Total Square Cm 2.28 -Wound/Ulcer Outcome Not Healed -Ulcer Cleansing Rinsed/ Irrigated with Saline -Foul Odor after Cleansing No -Bioengineered Tissue No -Bleeding Controlled with Pressure -Offloading Yes -Type of Offloading Knee Walker -Treatment Response Procedure Tolerated Well Pain Scale: 0-10 Numeric Is Patient Pain Free? Yes Wound debrided: plantar heel Laterality: Left Wound Grade/Stage: grade 3 Type of Debridement: Excisional debridement Anesthesia Used: 5% Lidocaine Gel Depth: in the subcutaneous layer Percentage of wound debrided: 100 Instrument Used: #15 blade Tissue Removed: fibrous, devitalized subcutaneous, biofilm, slough Severity: Fat Layer Exposed Amount of bleeding with debridement: Mild Bleeding Controlled with: Pressure Patient tolerated procedure well Assessment/Plan Active Problems Type 2 diabetes mellitus with diabetic polyneuropathy (Chronic) PVD (peripheral vascular disease) (Chronic) Chronic ulcer of left foot with fat layer exposed (Chronic) Achilles rupture, left (Chronic) Delayed wound healing (Chronic) Malnutrition (Chronic) Assessment: Left heel ulcer with fascia and muscle layer exposed, no infection- plantar and healing improvement. Left Achilles tendon rupture improving. Peripheral vascular disease. Diabetes with neuropathy. Malnutrition. Other comorbidities. Walking difficulty Plan: Patient was examined and evaluated today. I reviewed and discussed his case. Debridement was performed today as noted in the clinical panel. He has clinical resolution of infection. His full course of advanced wound healing product, epi-cord was completed. He has benefited from this and this is medically necessary for limb salvage. At this time, I recommend changing this every 2 to 3 days with Joana with negative pressure therapy. The indication purpose of this to apply negative pressure therapy to promote faster granulation tissue formation and the deeper deficit was discussed. He understands this is a staged comprehensive wound healing plan and he is still at risk for limb loss. The benefits were discussed and this is more user-friendly. To continue strict offloading by wearing a Cam walking boot and using a knee roller, crutches, a walker to keep weight off of the site. Compliance was discussed. He understands this will significantly impair his healing process and he is at risk for limb loss. It is noted he completed a course of antibiotics via PICC line. It is noted his noninvasive vascular studies were abnormal again and he has had previous lower extremity ulcers with significant delayed healing. He saw Dr. Beck and angiogram was performed. I answered all of his questions. To return to clinic in 1 week or call sooner if he has any questions or concerns.
== END 2019-04-26 23:59 ==
LOC: WC 08:15
PROVIDERS: Family Provider Family Medicine; PCP Family Medicine; Referring Provider Podiatrist; Visit Provider Podiatrist
DX: E11.621 Type 2 diabetes mellitus with foot ulcer (principal); E11.42 Type 2 diabetes mellitus with diabetic polyneuropathy; E11.51 Type 2 diabetes mellitus with diabetic peripheral angiopathy without gangrene; L97.422 Non-pressure chronic ulcer of left heel and midfoot with fat layer exposed; R26.2 Difficulty in walking, not elsewhere classified; S86.012A Strain of left Achilles tendon, initial encounter; X58.XXXA Exposure to other specified factors, initial encounter
CPT/HCPCS: 11042; 15275; Q4187

== ENCOUNTER 2019-05-26 08:30 | Outpatient (RCR) | payer MEDICARE, SELFPAY ==
[2019-04-27 00:40] VITALS: BP 149/80; PULSE 81; RESP 16; TEMP 36
[2019-04-28 11:10] VITALS: BP 156/78; PULSE 74; RESP 16; TEMP 36.4; BMI 28.3
--- NOTE | 2019-04-28 12:10 | PN.PCM_ITS ---
(1) Type 2 diabetes mellitus with diabetic polyneuropathy Status: Chronic Current Visit: Yes Code(s): E11.42 - Type 2 diabetes mellitus with diabetic polyneuropathy (2) PVD (peripheral vascular disease) Status: Chronic Current Visit: Yes Code(s): I73.9 - Peripheral vascular disease, unspecified (3) Chronic ulcer of left foot with fat layer exposed Status: Chronic Current Visit: Yes Code(s): L97.522 - Non-pressure chronic ulcer of other part of left foot with fat layer exposed (4) Delayed wound healing Status: Chronic Current Visit: Yes Code(s): T14.8XXD - Other injury of unspecified body region, subsequent encounter (5) Malnutrition Status: Chronic Current Visit: Yes Code(s): E46 - Unspecified protein- calorie malnutrition Type of Wound Date of Service: 04/28/19 Chief Complaint: Left heel ulcer History of Wound: This 73-year-old male with multiple comorbidities is seen today for left plantar heel ulcer. He had a history of neglected left Achilles tendon rupture that was treated conservatively. He denies fever, chill, nausea, vomiting. He did have previous claudication symptoms. He continues to remain nonweightbearing. He had vascular surgery intervention performed recently with Dr. Beck. Progress of Wound: Improving - Physical Exam Vital Signs Temp Pulse Resp BP 97.5 F L 74 16 156/78 H 04/28/19 11:10 04/28/19 11:10 04/28/19 11:10 04/28/19 11:10 General: Alert, Oriented x3, Cooperative, No apparent distress Extremities: No cyanosis, Capillary Refill Less than 3 Seconds, No Calf Tenderness - Negative Abhishek and Irwin sign left, Diminished Peripheral Pulses, Edema - Mild left, - - Improved stability of prior Achilles rupture site left Skin: Ulcer/ Wound - No purulence, erythema, string, odor, infection. No probe to bone or maceration or necrosis. Peripheral skin is hairless and atrophic. Wound Measurements and Assessment WC - Nurse 1 - General Ulcer Measurement Start: 04/28/19 11:10 Freq: Status: Active Protocol: Activity Type Activity Date Activity User E-Sign Co-Sign Detail Recorded Client Recorded Date Recorded By Document 04/28/19 11:10 [id number] 04/28/19 11:12 04/28/19 11:10 Wound Center Nurse 1 [Ulcer Assessment] #1 Left Heel -Combined with other wound No -Current Size (cm) - Length 1.5 -Current Size (cm) - Width 1.6 -Current Size (cm) - Depth 0.8 -Total Square Cm 2.40 -Photo Taken No -Epithelialization None Present -Tunneling No -Undermining/Tunneling No -Circular Undermining No -Exudate Amt Medium -Exudate Type Serosanguineous -Wound Margin Distinct, Outline Attached -Granulation Amt Large (67-100%) -Granulation Quality Red -Slough/Fibrin Yes -Necrosis Amt None Present (0 %) -Necrotic Tissue Type Adherent Slough -Texture (Emily-wound Skin Appearance) Callus -Moisture (Emily-wound Skin Appearance No Abnormality, ) Assessed -Color (Emily-wound Skin Appearance) No Abnormality, Assessed -Temperature (Emily-wound Skin No Abnormality Appearance) (Pt Warm) -Tenderness on Palpation (Emily-wound No Skin Appearance) -Ulcer Cleansing Rinsed/ Irrigated with Saline -Foul Odor after Cleansing No -Anesthetic Used 4% Lidocaine Solution [Edema Assessment] -Lower Limb Edema Present NA - Nurse 2 - General Ulcer CM Notes Start: 04/28/19 11:10 Freq: Status: Active Protocol: Activity Type Activity Date Activity User E-Sign Co-Sign Detail Recorded Client Recorded Date Recorded By Document 04/28/19 11:38 AN [id number] 04/28/19 11:42 AN 04/28/19 11:38 Wound Center Nurse 2 [Procedure/Treatment] #1 Left Heel -Time 11:38 -Correct Patient Yes -Correct Side, Site, Position Yes -Correct Procedure Yes -Procedure Performed Yes -Type of Procedure Debridement -Clinical Debridement Subcutaneous -Post Debridement Size (cm) - Length 1.7 -Post Debridement Size (cm) - Width 1.9 -Post Debridement Size (cm) - Depth 0.8 -Total Square Cm 3.23 -Wound/Ulcer Outcome Not Healed -Ulcer Cleansing Rinsed/ Irrigated with Saline -Foul Odor after Cleansing No -Bioengineered Tissue No -Bleeding Controlled with Pressure -Offloading Yes -Type of Offloading Knee Walker -Treatment Response Procedure Tolerated Well [See Physician Procedure note for Specifics] Pain Scale: 0-10 Numeric [Pain] -Is Patient Pain Free? Yes Musculoskeletal: No Tenderness to Palpation of Joints or Extremities, Muscle Wasting Neurological: - - Lack of normal epicritic sensation light touch left Psych/Mental Status: Normal Affect, Appropriate Debridement Note Post-Debridement Measurements/Treatment WC - Nurse 2 - General Ulcer CM Notes Start: 04/28/19 11:10 Freq: Status: Active Protocol: Activity Type Activity Date Activity User E-Sign Co-Sign Detail Recorded Client Recorded Date Recorded By Document 04/28/19 11:38 AN [id number] 04/28/19 11:42 AN 04/28/19 11:38 Wound Center Nurse 2 #1 Left Heel -Time 11:38 -Correct Patient Yes -Correct Side, Site, Position Yes -Correct Procedure Yes -Procedure Performed Yes -Type of Procedure Debridement -Clinical Debridement Subcutaneous -Post Debridement Size (cm) - Length 1.7 -Post Debridement Size (cm) - Width 1.9 -Post Debridement Size (cm) - Depth 0.8 -Total Square Cm 3.23 -Wound/Ulcer Outcome Not Healed -Ulcer Cleansing Rinsed/ Irrigated with Saline -Foul Odor after Cleansing No -Bioengineered Tissue No -Bleeding Controlled with Pressure -Offloading Yes -Type of Offloading Knee Walker -Treatment Response Procedure Tolerated Well Pain Scale: 0-10 Numeric Is Patient Pain Free? Yes Wound debrided: plantar heel Laterality: Left Wound Grade/Stage: grade 3 Type of Debridement: Excisional debridement Anesthesia Used: 5% Lidocaine Gel Depth: in the subcutaneous layer Percentage of wound debrided: 100 Instrument Used: #15 blade Tissue Removed: fibrous, devitalized subcutaneous, biofilm, slough Severity: Fat Layer Exposed Amount of bleeding with debridement: Mild Bleeding Controlled with: Pressure Patient tolerated procedure well Assessment/Plan Active Problems Type 2 diabetes mellitus with diabetic polyneuropathy (Chronic) PVD (peripheral vascular disease) (Chronic) Chronic ulcer of left foot with fat layer exposed (Chronic) Delayed wound healing (Chronic) Malnutrition (Chronic) Assessment: Left heel ulcer with fascia and muscle layer exposed, no infection- plantar and healing improvement. Left Achilles tendon rupture healed. Peripheral vascular disease. Diabetes with neuropathy. Malnutrition. Other comorbidities. Walking difficulty Plan: Patient was examined and evaluated today. I reviewed and discussed his case. Debridement was performed today as noted in the clinical panel. He has clinical resolution of infection. His full course of advanced wound healing product, epi-cord was completed. He has benefited from this and this is medically necessary for limb salvage. At this time, I recommend changing this every 2 to 3 days with Joana with negative pressure therapy. The indication purpose of this to apply negative pressure therapy to promote faster granulation tissue formation and the deeper deficit was discussed. He understands this is a staged comprehensive wound healing plan and he is still at risk for limb loss. The benefits were discussed and this is more user-friendly. To continue strict offloading by wearing a Cam walking boot and using a knee roller, crutches, a walker to keep weight off of the site. Compliance was discussed. He understands this will significantly impair his healing process and he is at risk for limb loss. It is noted he completed a course of antibiotics via PICC line. It is noted his noninvasive vascular studies were abnormal again and he has had previous lower extremity ulcers with significant delayed healing. He saw Dr. Beck and angiogram was performed. I answered all of his questions. To return to clinic in 1 week or call sooner if he has any questions or concerns.
[2019-04-30 14:44] VITALS: BP 164/91; PULSE 79; RESP 16; BMI 28.3
[2019-05-05 08:41] VITALS: BP 191/104; PULSE 79; RESP 18; TEMP 36.2; BMI 28.3
--- NOTE | 2019-05-05 10:00 | PN.PCM_ITS ---
(1) Chronic ulcer of left foot with fat layer exposed Status: Chronic Current Visit: Yes Code(s): L97.522 - Non-pressure chronic ulcer of other part of left foot with fat layer exposed (2) Type 2 diabetes mellitus with diabetic polyneuropathy Status: Chronic Current Visit: Yes Code(s): E11.42 - Type 2 diabetes mellitus with diabetic polyneuropathy (3) PVD (peripheral vascular disease) Status: Chronic Current Visit: Yes Code(s): I73.9 - Peripheral vascular disease, unspecified (4) Delayed wound healing Status: Chronic Current Visit: Yes Code(s): T14.8XXD - Other injury of unspecified body region, subsequent encounter (5) Malnutrition Status: Chronic Current Visit: Yes Code(s): E46 - Unspecified protein- calorie malnutrition Type of Wound Date of Service: 05/05/19 Chief Complaint: Left heel ulcer History of Wound: This 73-year-old male with multiple comorbidities is seen today for left plantar heel ulcer. He had a history of neglected left Achilles tendon rupture that was treated conservatively. He denies fever, chill, nausea, vomiting. He did have previous claudication symptoms. He continues to remain nonweightbearing. He had vascular surgery intervention performed recently with Dr. Beck. He is having trouble changing his wound VAC as advised 3 times a week and asked if there is an alternative dressing plan. He is with his daughter today. Progress of Wound: Improving - Physical Exam Vital Signs Temp Pulse Resp BP 97.1 F L 79 18 191/104 H 05/05/19 08:41 05/05/19 08:41 05/05/19 08:41 05/05/19 08:41 General: Alert, Oriented x3, Cooperative, No apparent distress HEENT: Atraumatic Extremities: No cyanosis, Capillary Refill Less than 3 Seconds, No Calf Tenderness - Negative Abhishek and Irwin sign left, Diminished Peripheral Pulses, Edema - Mild Skin: Ulcer/ Wound - No purulence, erythema, streaking, odor, infection. The ulcer bed is granular. There is peripheral callus noted. The peripheral skin is hairless and atrophic Wound Measurements and Assessment WC - Nurse 1 - General Ulcer Measurement Start: 04/28/19 11:10 Freq: Status: Active Protocol: Activity Type Activity Date Activity User E-Sign Co-Sign Detail Recorded Client Recorded Date Recorded By Document 05/05/19 08:41 [id number] 05/05/19 08:43 05/05/19 08:41 Wound Center Nurse 1 [Ulcer Assessment] #1 Left Heel -Combined with other wound No -Current Size (cm) - Length 1.2 -Current Size (cm) - Width 1.2 -Current Size (cm) - Depth 0.8 -Total Square Cm 1.44 -Photo Taken No -Epithelialization Small 1-33% -Tunneling No -Undermining/Tunneling No -Circular Undermining No -Exudate Amt Medium -Exudate Type Serosanguineous -Wound Margin Flat & Intact -Granulation Amt Large (67-100%) -Granulation Quality Red -Slough/Fibrin Yes -Necrosis Amt Small (1-33%) -Necrotic Tissue Type Adherent Slough -Structure Exposed N/A -Texture (Emily-wound Skin Appearance) Assessed,Callus -Moisture (Emily-wound Skin Appearance Assessed,Dry/ ) Scaly -Color (Emily-wound Skin Appearance) Assessed -Temperature (Emily-wound Skin No Abnormality Appearance) (Pt Warm) -Tenderness on Palpation (Emily-wound No Skin Appearance) -Ulcer Cleansing Wound Cleanser -Foul Odor after Cleansing No -Anesthetic Used 5% Lidocaine Gel [Edema Assessment] -Lower Limb Edema Present Yes -Left Calf (cm) 33.3 -Left Ankle (cm) 20.6 WC - Nurse 2 - General Ulcer CM Notes Start: 04/28/19 11:10 Freq: Status: Active Protocol: Activity Type Activity Date Activity User E-Sign Co-Sign Detail Recorded Client Recorded Date Recorded By Document 05/05/19 09:22 AN [id number] 05/05/19 09:23 AN 05/05/19 09:22 Wound Center Nurse 2 [Procedure/Treatment] #1 Left Heel -Time 09:22 -Correct Patient Yes -Correct Side, Site, Position Yes -Correct Procedure Yes -Procedure Performed Yes -Type of Procedure Debridement -Clinical Debridement Subcutaneous -Post Debridement Size (cm) - Length 1.9 -Post Debridement Size (cm) - Width 1.9 -Post Debridement Size (cm) - Depth 0.8 -Total Square Cm 3.61 -Wound/Ulcer Outcome Not Healed -Ulcer Cleansing Rinsed/ Irrigated with Saline -Foul Odor after Cleansing No -Bioengineered Tissue No -Bleeding Controlled with Pressure -Offloading No -Treatment Response Procedure Tolerated Well [See Physician Procedure note for Specifics] Pain Scale: 0-10 Numeric [Pain] -Is Patient Pain Free? Yes Musculoskeletal: No Tenderness to Palpation of Joints or Extremities, Muscle Wasting Neurological: - - Lack of normal epicritic sensation consistent with neuropathy to light touch left Psych/Mental Status: Normal Affect, Appropriate Debridement Note Post-Debridement Measurements/Treatment WC - Nurse 2 - General Ulcer CM Notes Start: 04/28/19 11:10 Freq: Status: Active Protocol: Activity Type Activity Date Activity User E-Sign Co-Sign Detail Recorded Client Recorded Date Recorded By Document 04/28/19 11:38 AN [id number] 04/28/19 11:42 AN Document 05/05/19 09:22 AN [id number] 05/05/19 09:23 AN 04/28/19 05/05/19 11:38 09:22 Wound Center Nurse 2 #1 Left Heel -Time 11:38 09:22 -Correct Patient Yes Yes -Correct Side, Site, Position Yes Yes -Correct Procedure Yes Yes -Procedure Performed Yes Yes -Type of Procedure Debridement Debridement -Clinical Debridement Subcutaneous Subcutaneous -Post Debridement Size (cm) - Length 1.7 1.9 -Post Debridement Size (cm) - Width 1.9 1.9 -Post Debridement Size (cm) - Depth 0.8 0.8 -Total Square Cm 3.23 3.61 -Wound/Ulcer Outcome Not Healed Not Healed -Ulcer Cleansing Rinsed/ Rinsed/ Irrigated with Irrigated with Saline Saline -Foul Odor after Cleansing No No -Bioengineered Tissue No No -Bleeding Controlled with Pressure Pressure -Offloading Yes No -Type of Offloading Knee Walker -Treatment Response Procedure Procedure Tolerated Well Tolerated Well Pain Scale: 0-10 Numeric Is Patient Pain Free? Yes Yes Wound debrided: plantar heel Laterality: Left Wound Grade/Stage: grade 3 Type of Debridement: Excisional debridement Anesthesia Used: 5% Lidocaine Gel Depth: in the subcutaneous layer Percentage of wound debrided: 100 Instrument Used: #15 blade Tissue Removed: fibrous, devitalized subcutaneous, biofiom, slough Severity: Fat Layer Exposed Amount of bleeding with debridement: Mild Bleeding Controlled with: Pressure Patient tolerated procedure well Assessment/Plan Active Problems Type 2 diabetes mellitus with diabetic polyneuropathy (Chronic) PVD (peripheral vascular disease) (Chronic) Chronic ulcer of left foot with fat layer exposed (Chronic) Delayed wound healing (Chronic) Malnutrition (Chronic) Assessment: Left heel ulcer with fascia and muscle layer exposed easily, no inf ection-plantar and healing improvement. Left Achilles tendon rupture healed. Peripheral vascular disease. Diabetes with neuropathy. Malnutrition. Other comorbidities. Walking difficulty Plan: Patient was examined and evaluated today. I reviewed and discussed his case. Debridement was performed today as noted in the clinical panel. He has clinical resolution of infection. His full course of advanced wound healing product, epi-cord was completed. He has benefited from this and this is medically necessary for limb salvage. At this time, I recommend location of carmella negative pressure therapy device today. To remove on Friday and transition to Joana daily dressing changes. The indication purpose of this to apply negative pressure therapy to promote faster granulation tissue formation and the deeper deficit was discussed. He understands this is a staged comprehensive wound healing plan and he is still at risk for limb loss. The benefits were discussed and this is more user-friendly. To continue strict offloading by wearing a Cam walking boot and using a knee roller, crutches, a walker to keep weight off of the site. Compliance was discussed. He understands this will significantly impair his healing process and he is at risk for limb loss. It is noted he completed a course of antibiotics via PICC line. It is noted his noninvasive vascular studies were abnormal again and he has had previous lower extremity ulcers with significant delayed healing. He saw Dr. Beck and angiogram was performed. I answered all of his questions. To return to clinic in 1 week or call sooner if he has any questions or concerns.
[2019-05-12 08:15] VITALS: BP 154/81; PULSE 89; RESP 16; TEMP 36; BMI 28.3
--- NOTE | 2019-05-12 09:00 | PN.PCM_ITS ---
(1) Chronic ulcer of left foot with fat layer exposed Status: Chronic Current Visit: Yes Code(s): L97.522 - Non-pressure chronic ulcer of other part of left foot with fat layer exposed (2) Type 2 diabetes mellitus with diabetic polyneuropathy Status: Chronic Current Visit: Yes Code(s): E11.42 - Type 2 diabetes mellitus with diabetic polyneuropathy (3) PVD (peripheral vascular disease) Status: Chronic Current Visit: Yes Code(s): I73.9 - Peripheral vascular disease, unspecified (4) Delayed wound healing Status: Chronic Current Visit: Yes Code(s): T14.8XXD - Other injury of unspecified body region, subsequent encounter (5) Malnutrition Status: Chronic Current Visit: Yes Code(s): E46 - Unspecified protein- calorie malnutrition Type of Wound Date of Service: 05/12/19 Chief Complaint: Left heel ulcer History of Wound: This 73-year-old male with multiple comorbidities is seen today for left plantar heel ulcer. He had a history of neglected left Achilles tendon rupture that was treated conservatively. He denies fever, chill, nausea, vomiting. He did have previous claudication symptoms. He continues to remain nonweightbearing. He had vascular surgery intervention performed recently with Dr. Beck. He is with his daughter today. Progress of Wound: Improving - Physical Exam Vital Signs Temp Pulse Resp BP 96.8 F L 89 16 154/81 H 05/12/19 08:15 05/12/19 08:15 05/12/19 08:15 05/12/19 08:15 General: Alert, Oriented x3, Cooperative, No apparent distress Extremities: No cyanosis, Capillary Refill Less than 3 Seconds, No Calf Tenderness - Negative Abhishek and Irwin signs left, Diminished Peripheral Pulses, Edema - Mild Skin: Ulcer/ Wound - No purulence, erythema, string, odor, infection. No exposed bone. There is decreased callus formation this week. The peripheral skin is hairless and atrophic Wound Measurements and Assessment WC - Nurse 1 - General Ulcer Measurement Start: 04/28/19 11:10 Freq: Status: Active Protocol: Activity Type Activity Date Activity User E-Sign Co-Sign Detail Recorded Client Recorded Date Recorded By Document 05/12/19 08:15 JF [id number] 05/12/19 08:19 05/12/19 08:15 Wound Center Nurse 1 [Ulcer Assessment] #1 Left Heel -Combined with other wound No -Current Size (cm) - Length 1.8 -Current Size (cm) - Width 0.9 -Current Size (cm) - Depth 0.8 -Total Square Cm 1.62 -Photo Taken No -Epithelialization Small 1-33% -Tunneling No -Undermining/Tunneling No -Circular Undermining No -Exudate Amt Medium -Exudate Type Serosanguineous -Wound Margin Flat & Intact -Granulation Amt Large (67-100%) -Granulation Quality Red -Slough/Fibrin Yes -Necrosis Amt Small (1-33%) -Necrotic Tissue Type Adherent Slough -Structure Exposed N/A -Texture (Emily-wound Skin Appearance) Assessed,Callus -Moisture (Emily-wound Skin Appearance Assessed,Dry/ ) Scaly -Color (Emily-wound Skin Appearance) Assessed -Temperature (Emily-wound Skin No Abnormality Appearance) (Pt Warm) -Tenderness on Palpation (Emily-wound No Skin Appearance) -Ulcer Cleansing Rinsed/ Irrigated with Saline -Foul Odor after Cleansing No -Anesthetic Used 4% Lidocaine Solution [Edema Assessment] -Lower Limb Edema Present No Musculoskeletal: No Tenderness to Palpation of Joints or Extremities, Muscle Wasting Neurological: - - Lack of normal epicritic sensation light touch consistent with neuropathy status Psych/Mental Status: Normal Affect, Appropriate Debridement Note Post-Debridement Measurements/Treatment WC - Nurse 2 - General Ulcer CM Notes Start: 04/28/19 11:10 Freq: Status: Active Protocol: Activity Type Activity Date Activity User E-Sign Co-Sign Detail Recorded Client Recorded Date Recorded By Document 04/28/19 11:38 AN [id number] 04/28/19 11:42 AN Document 05/05/19 09:22 AN [id number] 05/05/19 09:23 AN 04/28/19 05/05/19 11:38 09:22 Wound Center Nurse 2 #1 Left Heel -Time 11:38 09:22 -Correct Patient Yes Yes -Correct Side, Site, Position Yes Yes -Correct Procedure Yes Yes -Procedure Performed Yes Yes -Type of Procedure Debridement Debridement -Clinical Debridement Subcutaneous Subcutaneous -Post Debridement Size (cm) - Length 1.7 1.9 -Post Debridement Size (cm) - Width 1.9 1.9 -Post Debridement Size (cm) - Depth 0.8 0.8 -Total Square Cm 3.23 3.61 -Wound/Ulcer Outcome Not Healed Not Healed -Ulcer Cleansing Rinsed/ Rinsed/ Irrigated with Irrigated with Saline Saline -Foul Odor after Cleansing No No -Bioengineered Tissue No No -Bleeding Controlled with Pressure Pressure -Offloading Yes No -Type of Offloading Knee Walker -Treatment Response Procedure Procedure Tolerated Well Tolerated Well Pain Scale: 0-10 Numeric Is Patient Pain Free? Yes Yes Wound debrided: plantar heel Laterality: Left Wound Grade/Stage: grade 3 Type of Debridement: Excisional debridement Anesthesia Used: 5% Lidocaine Gel Depth: in the subcutaneous layer Percentage of wound debrided: 100 Instrument Used: #15 blade Tissue Removed: fibrous, devitalized subcutaneous, biofilm, slough Severity: Fat Layer Exposed Amount of bleeding with debridement: Mild Bleeding Controlled with: Pressure Patient tolerated procedure well Assessment/Plan Active Problems Type 2 diabetes mellitus with diabetic polyneuropathy (Chronic) PVD (peripheral vascular disease) (Chronic) Chronic ulcer of left foot with fat layer exposed (Chronic) Delayed wound healing (Chronic) Malnutrition (Chronic) Assessment: Left heel ulcer with fascia and muscle layer exposed easily, no infection-plantar and healing improvement. Left Achilles tendon rupture healed. Peripheral vascular disease. Diabetes with neuropathy. Malnutrition. Other comorbidities. Walking difficulty Plan: Patient was examined and evaluated today. I reviewed and discussed his case. Debridement was performed today as noted in the clinical panel. He has clinical resolution of infection. His full course of advanced wound healing product, epi-cord was completed. He has benefited from this and this is medically necessary for limb salvage. At this time, I recommend location of carmella negative pressure therapy device today. To remove on Friday and transition to Joana dressing change. The indication and purpose of this to apply negative pressure therapy to promote faster granulation tissue formation and the deeper deficit was discussed. He understands this is a staged comprehensive wound healing plan and he is still at risk for limb loss. The benefits were discussed and this is more user-friendly. To continue strict offloading by wearing a Cam walking boot and using a knee roller, crutches, a walker to keep weight off of the site. Compliance was discussed. He understands this will significantly impair his healing process and he is at risk for limb loss. To continue knee roller use at home to aid with compliance. It is noted he completed a course of antibiotics via PICC line. It is noted his noninvasive vascular studies were abnormal again and he has had previous lower extremity ulcers with significant delayed healing. He saw Dr. Beck and angiogram was performed. I answered all of his questions. To return to clinic in 1 week or call sooner if he has any questions or concerns.
[2019-05-19 08:23] VITALS: BP 134/97; PULSE 87; RESP 18; TEMP 36.2; BMI 28.3
--- NOTE | 2019-05-19 08:47 | PCM.WC.PN ---
(1) Chronic ulcer of left foot with fat layer exposed Status: Chronic Current Visit: Yes Code(s): L97.522 - Non-pressure chronic ulcer of other part of left foot with fat layer exposed (2) Type 2 diabetes mellitus with diabetic polyneuropathy Status: Chronic Current Visit: Yes Code(s): E11.42 - Type 2 diabetes mellitus with diabetic polyneuropathy (3) PVD (peripheral vascular disease) Status: Chronic Current Visit: Yes Code(s): I73.9 - Peripheral vascular disease, unspecified (4) Delayed wound healing Status: Chronic Current Visit: Yes Code(s): T14.8XXD - Other injury of unspecified body region, subsequent encounter (5) Malnutrition Status: Chronic Current Visit: Yes Code(s): E46 - Unspecified protein-calorie malnutrition Type of Wound Date of Service: 05/20/19 Chief Complaint: Left heel ulcer History of Wound: This 73-year-old male with multiple comorbidities is seen today for left plantar heel ulcer. He had a history of neglected left Achilles tendon rupture that was treated conservatively. He denies fever, chill, nausea, vomiting. He did have previous claudication symptoms. He continues to remain nonweightbearing. He had vascular surgery intervention performed recently with Dr. Beck. He is with his neighbor today. Progress of Wound: Improving - Physical Exam Vital Signs Temp Pulse Resp BP 97.1 F L 87 18 134/97 H 05/19/19 08:23 05/19/19 08:23 05/19/19 08:23 05/19/19 08:23 General: Alert, Oriented x3, Cooperative, No apparent distress Extremities: No cyanosis, Capillary Refill Less than 3 Seconds, No Calf Tenderness - Negative Abhishek and Irwin sign bilateral, Diminished Peripheral Pulses, Edema - Mild Skin: Ulcer/ Wound - No purulence, erythema, streaking, odor, infection left lower extremity. Peripheral skin is hairless and atrophic. There are no ulcers noted to the right foot or maceration or infection. Wound Measurements and Assessment WC - Nurse 1 - General Ulcer Measurement Start: 04/28/19 11:10 Freq: Status: Active Protocol: Activity Type Activity Date Activity User E-Sign Co-Sign Detail Recorded Client Recorded Date Recorded By Document 05/19/19 08:23 RB [id number] 05/19/19 08:25 RB 05/19/19 08:23 Wound Center Nurse 1 [Ulcer Assessment] #1 Left Heel -Combined with other wound No -Current Size (cm) - Length 0.9 -Current Size (cm) - Width 1 -Current Size (cm) - Depth 0.7 -Total Square Cm 0.9 -Tunneling No -Undermining/Tunneling No -Circular Undermining No -Exudate Amt Small -Exudate Type Serosanguineous -Wound Margin Thickened & Rolled Under -Granulation Amt Medium (34-66%) -Granulation Quality [place] -Slough/Fibrin Yes -Necrosis Amt Small (1-33%) -Necrotic Tissue Type Adherent Slough -Structure Exposed N/A -Texture (Emily-wound Skin Appearance) Assessed,Callus -Moisture (Emily-wound Skin Appearance Assessed ) -Color (Emily-wound Skin Appearance) Assessed -Temperature (Emily-wound Skin No Abnormality Appearance) (Pt Warm) -Tenderness on Palpation (Emily-wound No Skin Appearance) -Ulcer Cleansing Wound Cleanser -Foul Odor after Cleansing No -Anesthetic Used 5% Lidocaine Gel [Edema Assessment] -Lower Limb Edema Present Yes -Left Calf (cm) 35.4 -Left Ankle (cm) 20 WC - Nurse 2 - General Ulcer CM Notes Start: 04/28/19 11:10 Freq: Status: Active Protocol: Activity Type Activity Date Activity User E-Sign Co-Sign Detail Recorded Client Recorded Date Recorded By Document 05/19/19 08:40 AN [id number] 05/19/19 08:45 AN 05/19/19 08:40 Wound Center Nurse 2 [Procedure/Treatment] #1 Left Heel -Time 08:45 -Correct Patient Yes -Correct Side, Site, Position Yes -Correct Procedure Yes -Procedure Performed Yes -Type of Procedure Debridement -Clinical Debridement Subcutaneous -Post Debridement Size (cm) - Length 1 -Post Debridement Size (cm) - Width 1.1 -Post Debridement Size (cm) - Depth 0.7 -Total Square Cm 1.1 -Wound/Ulcer Outcome Not Healed -Ulcer Cleansing Rinsed/ Irrigated with Saline -Foul Odor after Cleansing No -Bioengineered Tissue No -Bleeding Controlled with Pressure -Offloading Yes -Type of Offloading Camwalker -Treatment Response Procedure Tolerated Well [See Physician Procedure note for Specifics] Pain Scale: 0-10 Numeric [Pain] -Is Patient Pain Free? Yes Musculoskeletal: No Tenderness to Palpation of Joints or Extremities, Muscle Wasting Neurological: - - Lack of normal epicritic sensation light touch consistent with neuropathy Psych/Mental Status: Normal Affect, Appropriate Debridement Note Post-Debridement Measurements/Treatment WC - Nurse 2 - General Ulcer CM Notes Start: 04/28/19 11:10 Freq: Status: Active Protocol: Activity Type Activity Date Activity User E-Sign Co-Sign Detail Recorded Client Recorded Date Recorded By Document 04/28/19 11:38 AN [id number] 04/28/19 11:42 AN Document 05/05/19 09:22 AN [id number] 05/05/19 09:23 AN Document 05/12/19 11:01 AN [id number] 05/12/19 11:02 AN Document 05/19/19 08:40 AN [id number] 05/19/19 08:45 AN 04/28/19 05/05/19 05/12/19 11:38 09:22 11:01 Wound Center Nurse 2 #1 Left Heel -Time 11:38 09:22 11:01 -Correct Patient Yes Yes Yes -Correct Side, Site, Position Yes Yes Yes -Correct Procedure Yes Yes Yes -Procedure Performed Yes Yes Yes -Type of Procedure Debridement Debridement Debridement -Clinical Debridement Subcutaneous Subcutaneous Subcutaneous -Post Debridement Size (cm) - Length 1.7 1.9 1.9 -Post Debridement Size (cm) - Width 1.9 1.9 1.0 -Post Debridement Size (cm) - Depth 0.8 0.8 0.8 -Total Square Cm 3.23 3.61 1.90 -Wound/Ulcer Outcome Not Healed Not Healed Not Healed -Ulcer Cleansing Rinsed/ Rinsed/ Rinsed/ Irrigated with Irrigated with Irrigated with Saline Saline Saline -Foul Odor after Cleansing No No No -Bioengineered Tissue No No No -Bleeding Controlled with Pressure Pressure Pressure -Offloading Yes No Yes -Type of Offloading Knee Walker Knee Walker -Treatment Response Procedure Procedure Procedure Tolerated Well Tolerated Well Tolerated Well Pain Scale: 0-10 Numeric Is Patient Pain Free? Yes Yes Yes 05/19/19 08:40 Wound Center Nurse 2 #1 Left Heel -Time 08:45 -Correct Patient Yes -Correct Side, Site, Position Yes -Correct Procedure Yes -Procedure Performed Yes -Type of Procedure Debridement -Clinical Debridement Subcutaneous -Post Debridement Size (cm) - Length 1 -Post Debridement Size (cm) - Width 1.1 -Post Debridement Size (cm) - Depth 0.7 -Total Square Cm 1.1 -Wound/Ulcer Outcome Not Healed -Ulcer Cleansing Rinsed/ Irrigated with Saline -Foul Odor after Cleansing No -Bioengineered Tissue No -Bleeding Controlled with Pressure -Offloading Yes -Type of Offloading Camwalker -Treatment Response Procedure Tolerated Well Pain Scale: 0-10 Numeric Is Patient Pain Free? Yes Wound debrided: plantar heel Laterality: Left Wound Grade/Stage: grade 3 Type of Debridement: Excisional debridement Anesthesia Used: 5% Lidocaine Gel Depth: in the subcutaneous layer Percentage of wound debrided: 100 Instrument Used: #15 blade Tissue Removed: fibrous, devitalized subcutaneous, biofilm, slough Severity: Fat Layer Exposed Amount of bleeding with debridement: Mild Bleeding Controlled with: Pressure Patient tolerated procedure well Assessment/Plan Active Problems Type 2 diabetes mellitus with diabetic polyneuropathy (Chronic) PVD (peripheral vascular disease) (Chronic) Chronic ulcer of left foot with fat layer exposed (Chronic) Delayed wound healing (Chronic) Malnutrition (Chronic) Assessment: Left heel ulcer with fascia and muscle layer exposed easily, no infection-plantar and healing improvement. Left Achilles tendon rupture healed. Peripheral vascular disease. Diabetes with neuropathy. Malnutrition. Other comorbidities. Walking difficulty Plan: Patient was examined and evaluated today. I reviewed and discussed his case. Debridement was performed today as noted in the clinical panel. He has clinical resolution of infection. His full course of advanced wound healing product, epi-cord was completed. He has benefited from this and this is medically necessary for limb salvage. At this time, I recommend location of carmella negative pressure therapy device today. To remove on Friday and transition to Joana dressing change. The indication and purpose of this to apply negative pressure therapy to promote faster granulation tissue formation and the deeper deficit was discussed. He understands this is a staged comprehensive wound healing plan and he is still at risk for limb loss. The benefits were discussed and this is more user-friendly. To continue strict offloading by wearing a Cam walking boot and using a knee roller, crutches, a walker to keep weight off of the site. Compliance was discussed. He understands this will significantly impair his healing process and he is at risk for limb loss. To continue knee roller use at home to aid with compliance. It is noted he completed a course of antibiotics via PICC line. It is noted his noninvasive vascular studies were abnormal again and he has had previous lower extremity ulcers with significant delayed healing. He saw Dr. Beck and angiogram was performed. I answered all of his questions. To return to clinic in 1 week or call sooner if he has any questions or concerns. I also offered him surgical intervention with a same day surgery procedure to debride the delayed healing ulcer site with the versa jet and apply advancement product, amnio fill to stimulate faster healing. He defers today would like to proceed with clinical treatment.
[2019-05-26 08:38] VITALS: BP 133/73; PULSE 80; RESP 18; TEMP 36; BMI 28.3
--- NOTE | 2019-05-26 09:25 | PN.PCM_ITS ---
(1) Chronic ulcer of left foot with fat layer exposed Status: Chronic Code(s): L97.522 - Non-pressure chronic ulcer of other part of left foot with fat layer exposed (2) Type 2 diabetes mellitus with diabetic polyneuropathy Status: Chronic Code(s): E11.42 - Type 2 diabetes mellitus with diabetic polyneuropathy (3) PVD (peripheral vascular disease) Status: Chronic Code(s): I73.9 - Peripheral vascular disease, unspecified (4) Delayed wound healing Status: Chronic Code(s): T14.8XXD - Other injury of unspecified body region, subsequent encounter (5) Malnutrition Status: Chronic Code(s): E46 - Unspecified protein-calorie malnutrition Type of Wound Date of Service: 05/26/19 Chief Complaint: Left heel ulcer History of Wound: This 74-year-old male with multiple comorbidities is seen today for left plantar heel ulcer. He had a history of neglected left Achilles tendon rupture that was treated conservatively. He denies fever, chill, nausea, vomiting. He did have previous claudication symptoms. He continues to remain nonweightbearing. He had vascular surgery intervention performed recently with Dr. Beck. He is with his neighbor today. He defers additional advanced treatment such as hyperbaric oxygen and additional surgical debridement on this site. He is unable to transport on his own without assistance. Progress of Wound: Improving - Physical Exam Vital Signs Temp Pulse Resp BP 96.8 F L 80 18 133/73 H 05/26/19 08:38 05/26/19 08:38 05/26/19 08:38 05/26/19 08:38 General: Alert, Oriented x3, Cooperative, No apparent distress HEENT: Atraumatic Extremities: No cyanosis, Capillary Refill Less than 3 Seconds, No Calf Tenderness, Diminished Peripheral Pulses Skin: Ulcer/ Wound - No purulence, erythema, streaking, odor, infection. Wound Measurements and Assessment WC - Nurse 1 - General Ulcer Measurement Start: 04/28/19 11:10 Freq: Status: Active Protocol: Activity Type Activity Date Activity User E-Sign Co-Sign Detail Recorded Client Recorded Date Recorded By Document 05/26/19 08:38 RB [id number] 05/26/19 08:41 RB 05/26/19 08:38 Wound Center Nurse 1 [Ulcer Assessment] #1 Left Heel -Combined with other wound No -Current Size (cm) - Length 1 -Current Size (cm) - Width 1 -Current Size (cm) - Depth 0.8 -Total Square Cm 1 -Epithelialization None Present -Tunneling No -Undermining/Tunneling Yes -Undermining/Tunneling Starts (O' 9 clock) -Undermining/Tunneling Ends (O'clock) 1 -Maximum Distance (cm) 1 -Circular Undermining No -Exudate Amt Small -Exudate Type Serosanguineous -Wound Margin Thickened & Rolled Under -Granulation Amt Medium (34-66%) -Granulation Quality [place] -Slough/Fibrin Yes -Necrosis Amt Medium (34-66%) -Necrotic Tissue Type Adherent Slough -Structure Exposed N/A -Texture (Emily-wound Skin Appearance) Assessed,Callus -Moisture (Emily-wound Skin Appearance Assessed ) -Color (Emily-wound Skin Appearance) Assessed -Temperature (Emily-wound Skin No Abnormality Appearance) (Pt Warm) -Tenderness on Palpation (Emily-wound No Skin Appearance) -Ulcer Cleansing Wound Cleanser -Foul Odor after Cleansing No -Anesthetic Used 5% Lidocaine Gel WC - Nurse 2 - General Ulcer CM Notes Start: 04/28/19 11:10 Freq: Status: Active Protocol: Activity Type Activity Date Activity User E-Sign Co-Sign Detail Recorded Client Recorded Date Recorded By Document 05/26/19 09:05 [id number] 05/26/19 09:08 AN 05/26/19 09:05 Wound Center Nurse 2 [Procedure/Treatment] -Time 09:07 -Correct Patient Yes -Correct Side, Site, Position Yes -Correct Procedure Yes -Procedure Performed Yes -Type of Procedure Debridement -Clinical Debridement Subcutaneous -Post Debridement Size (cm) - Length 1.1 -Post Debridement Size (cm) - Width 1.1 -Post Debridement Size (cm) - Depth 0.8 -Total Square Cm 1.21 -Wound/Ulcer Outcome Not Healed -Ulcer Cleansing Rinsed/ Irrigated with Saline -Foul Odor after Cleansing No -Bioengineered Tissue No -Bleeding Controlled with Pressure -Offloading Yes -Type of Offloading Knee Walker -Treatment Response Procedure Tolerated Well [See Physician Procedure note for Specifics] Pain Scale: 0-10 Numeric [Pain] -Is Patient Pain Free? Yes Musculoskeletal: No Tenderness to Palpation of Joints or Extremities, Muscle Wasting Neurological: - - Lack of normal epicritic sensation with touch consistent with neuropathy Psych/Mental Status: Normal Affect, Appropriate Debridement Note Post-Debridement Measurements/Treatment WC - Nurse 2 - General Ulcer CM Notes Start: 04/28/19 11:10 Freq: Status: Active Protocol: Activity Type Activity Date Activity User E-Sign Co-Sign Detail Recorded Client Recorded Date Recorded By Document 04/28/19 11:38 AN [id number] 04/28/19 11:42 AN Document 05/05/19 09:22 AN [id number] 05/05/19 09:23 AN Document 05/12/19 11:01 AN [id number] 05/12/19 11:02 AN Document 05/19/19 08:40 AN [id number] 05/19/19 08:45 AN Document 05/26/19 09:05 AN [id number] 05/26/19 09:08 AN 04/28/19 05/05/19 05/12/19 11:38 09:22 11:01 Wound Center Nurse 2 #1 Left Heel -Time 11:38 09:22 11:01 -Correct Patient Yes Yes Yes -Correct Side, Site, Position Yes Yes Yes -Correct Procedure Yes Yes Yes -Procedure Performed Yes Yes Yes -Type of Procedure Debridement Debridement Debridement -Clinical Debridement Subcutaneous Subcutaneous Subcutaneous -Post Debridement Size (cm) - Length 1.7 1.9 1.9 -Post Debridement Size (cm) - Width 1.9 1.9 1.0 -Post Debridement Size (cm) - Depth 0.8 0.8 0.8 -Total Square Cm 3.23 3.61 1.90 -Wound/Ulcer Outcome Not Healed Not Healed Not Healed -Ulcer Cleansing Rinsed/ Rinsed/ Rinsed/ Irrigated with Irrigated with Irrigated with Saline Saline Saline -Foul Odor after Cleansing No No No -Bioengineered Tissue No No No -Bleeding Controlled with Pressure Pressure Pressure -Offloading Yes No Yes -Type of Offloading Knee Walker Knee Walker -Treatment Response Procedure Procedure Procedure Tolerated Well Tolerated Well Tolerated Well Pain Scale: 0-10 Numeric Is Patient Pain Free? Yes Yes Yes 05/19/19 05/26/19 08:40 09:05 Wound Center Nurse 2 #1 Left Heel -Time 08:45 09:07 -Correct Patient Yes Yes -Correct Side, Site, Position Yes Yes -Correct Procedure Yes Yes -Procedure Performed Yes Yes -Type of Procedure Debridement Debridement -Clinical Debridement Subcutaneous Subcutaneous -Post Debridement Size (cm) - Length 1 1.1 -Post Debridement Size (cm) - Width 1.1 1.1 -Post Debridement Size (cm) - Depth 0.7 0.8 -Total Square Cm 1.1 1.21 -Wound/Ulcer Outcome Not Healed Not Healed -Ulcer Cleansing Rinsed/ Rinsed/ Irrigated with Irrigated with Saline Saline -Foul Odor after Cleansing No No -Bioengineered Tissue No No -Bleeding Controlled with Pressure Pressure -Offloading Yes Yes -Type of Offloading Camwalker Knee Walker -Treatment Response Procedure Procedure Tolerated Well Tolerated Well Pain Scale: 0-10 Numeric Is Patient Pain Free? Yes Yes Wound debrided: plantar heel Laterality: Left Wound Grade/Stage: grade 3 Anesthesia Used: 5% Lidocaine Gel Depth: in the subcutaneous layer Percentage of wound debrided: 100 Instrument Used: #15 blade Tissue Removed: fibrous, devitalized subcutaneous, biofilm, slough Severity: Fat Layer Exposed Amount of bleeding with debridement: Mild Bleeding Controlled with: Pressure Patient tolerated procedure well Assessment/Plan Assessment: Left heel ulcer with fascia and muscle layer exposed easily, no infection-plantar and healing improvement. Left Achilles tendon rupture healed. Peripheral vascular disease. Diabetes with neuropathy. Malnutrition. Other comorbidities. Walking difficulty Plan: Patient was examined and evaluated today. I reviewed and discussed his case. Debridement was performed today as noted in the clinical panel. He has clinical resolution of infection. His full course of advanced wound healing product, epi-cord was completed. He has benefited from this and this is medically necessary for limb salvage. At this time, I recommend location of carmella negative pressure therapy device today. To remove on Friday and transition to Joana dressing change. The indication and purpose of this to apply negative pressure therapy to promote faster granulation tissue formation and the deeper deficit was discussed. He understands this is a staged comprehensive wound healing plan and he is still at risk for limb loss. The benefits were discussed and this is more user-friendly. To continue strict offloading by wearing a Cam walking boot and using a knee roller, crutches, a walker to keep weight off of the site. Compliance was discussed. He understands this will significantly impair his healing process and he is at risk for limb loss. To continue knee roller use at home to aid with compliance. It is noted he completed a course of antibiotics via PICC line. It is noted his noninvasive vascular studies were abnormal again and he has had previous lower extremity ulcers with significant delayed healing. He saw Dr. Beck and angiogram was performed. I answered all of his questions. To return to clinic in 1 week or call sooner if he has any questions or concerns. I also offered him surgical intervention with a same day surgery procedure to debride the delayed healing ulcer site with the versa jet and apply advancement product, amnio fill to stimulate faster healing and hyperbaric oxygen therapy consideration. He defers today would like to proceed with clinical treatment.
== END 2019-05-27 23:59 ==
LOC: WC 08:30
PROVIDERS: Family Provider Family Medicine; PCP Family Medicine; Referring Provider Podiatrist; Visit Provider Podiatrist
DX: E11.621 Type 2 diabetes mellitus with foot ulcer (principal); E11.42 Type 2 diabetes mellitus with diabetic polyneuropathy; E11.51 Type 2 diabetes mellitus with diabetic peripheral angiopathy without gangrene; L97.422 Non-pressure chronic ulcer of left heel and midfoot with fat layer exposed; R26.2 Difficulty in walking, not elsewhere classified
CPT/HCPCS: 11042; 97607; 99212; G0463

== ENCOUNTER 2019-06-09 08:15 | Outpatient (RCR) | payer MEDICARE, SELFPAY ==
[2019-05-28 00:42] VITALS: BP 133/73; PULSE 80; RESP 18; TEMP 36
[2019-06-02 08:26] VITALS: BP 154/90; PULSE 82; RESP 18; TEMP 36.5; BMI 28.3
--- NOTE | 2019-06-02 09:44 | PN.PCM_ITS ---
(1) Chronic ulcer of left foot with fat layer exposed Status: Chronic Current Visit: Yes Code(s): L97.522 - Non-pressure chronic ulcer of other part of left foot with fat layer exposed (2) Osteomyelitis of left foot Status: Resolved Current Visit: Yes Code(s): M86.9 - Osteomyelitis, unspecified (3) Type 2 diabetes mellitus with diabetic polyneuropathy Status: Chronic Current Visit: Yes Code(s): E11.42 - Type 2 diabetes mellitus with diabetic polyneuropathy (4) PVD (peripheral vascular disease) Status: Chronic Current Visit: Yes Code(s): I73.9 - Peripheral vascular disease, unspecified (5) Delayed wound healing Status: Chronic Current Visit: Yes Code(s): T14.8XXD - Other injury of unspecified body region, subsequent encounter (6) Malnutrition Status: Chronic Current Visit: Yes Code(s): E46 - Unspecified protein- calorie malnutrition Type of Wound Date of Service: 06/02/19 Chief Complaint: Left heel ulcer History of Wound: This 74-year-old male with multiple comorbidities is seen today for left plantar heel ulcer. He had a history of neglected left Achilles tendon rupture that was treated conservatively. He denies fever, chill, nausea, vomiting. He did have previous claudication symptoms. He continues to remain nonweightbearing. He had vascular surgery intervention performed recently with Dr. Beck. He is with his neighbor today. He defers additional advanced treatment such as hyperbaric oxygen and additional surgical debridement on this site. He is unable to transport on his own without assistance. He is considering traveling to [place] within the next couple months and inquires about a referral to see his admission specialist while he is out of town. Progress of Wound: Stable - Physical Exam Vital Signs Temp Pulse Resp BP 97.7 F L 82 18 154/90 H 06/02/19 08:26 06/02/19 08:26 06/02/19 08:26 06/02/19 08:26 General: Alert, Oriented x3, Cooperative, No apparent distress HEENT: Atraumatic Extremities: No cyanosis, Capillary Refill Less than 3 Seconds, No Calf Tenderness - Negative Abhishek and Irwin left, Diminished Peripheral Pulses, Edema - Mild Skin: Ulcer/ Wound - No purulence, erythema, streaking, odor, infection. There is no exposed bone. The base of the ulcer is granular. There is peripheral callus noted. Wound Measurements and Assessment WC - Nurse 1 - General Ulcer Measurement Start: 06/02/19 08:26 Freq: Status: Active Protocol: Activity Type Activity Date Activity User E-Sign Co-Sign Detail Recorded Client Recorded Date Recorded By Document 06/02/19 08:26 DL [id number] 06/02/19 08:32 DL 06/02/19 08:26 Wound Center Nurse 1 [Ulcer Assessment] #1 Left Heel -Current Size (cm) - Length 1.5 -Current Size (cm) - Width 1.4 -Current Size (cm) - Depth 1 -Total Square Cm 2.10 -Photo Taken No -Undermining/Tunneling Starts (O' 10 clock) -Undermining/Tunneling Ends (O'clock) 4 -Maximum Distance (cm) 1 -Exudate Amt Medium -Exudate Type Serosanguineous -Wound Margin Thickened & Rolled Under -Granulation Amt Small (1-33%) -Granulation Quality [place] -Necrosis Amt Large (67-100%) -Necrotic Tissue Type Adherent Slough -Structure Exposed N/A -Texture (Emily-wound Skin Appearance) Callus,Scarring -Moisture (Emily-wound Skin Appearance Maceration ) -Color (Emily-wound Skin Appearance) No Abnormality -Temperature (Emily-wound Skin No Abnormality Appearance) (Pt Warm) -Tenderness on Palpation (Emily-wound No Skin Appearance) -Ulcer Cleansing Wound Cleanser -Foul Odor after Cleansing No -Anesthetic Used 5% Lidocaine Gel - Nurse 2 - General Ulcer CM Notes Start: 06/02/19 08:26 Freq: Status: Active Protocol: Activity Type Activity Date Activity User E-Sign Co-Sign Detail Recorded Client Recorded Date Recorded By Document 06/02/19 09:01 JF [id number] 06/02/19 09:06 GAGE 06/02/19 09:01 Wound Center Nurse 2 [Procedure/Treatment] -Time 09:01 -Correct Patient Yes -Correct Side, Site, Position Yes -Correct Procedure Yes -Procedure Performed Yes -Type of Procedure Debridement -Clinical Debridement Subcutaneous -Post Debridement Size (cm) - Length 1.5 -Post Debridement Size (cm) - Width 1.5 -Post Debridement Size (cm) - Depth 1.0 -Total Square Cm 2.25 -Wound/Ulcer Outcome Not Healed -Ulcer Cleansing Rinsed/ Irrigated with Saline -Foul Odor after Cleansing No -Bioengineered Tissue No -Bleeding Controlled with Pressure -Offloading Yes -Type of Offloading Knee Walker -Treatment Response Procedure Tolerated Well [See Physician Procedure note for Specifics] Pain Scale: 0-10 Numeric [Pain] -Is Patient Pain Free? Yes Musculoskeletal: No Tenderness to Palpation of Joints or Extremities, Muscle Wasting Neurological: - - Normal epicritic sensation light touch consistent with neuropathy status Psych/Mental Status: Normal Affect, Appropriate Debridement Note Post-Debridement Measurements/Treatment WC - Nurse 2 - General Ulcer CM Notes Start: 06/02/19 08:26 Freq: Status: Active Protocol: Activity Type Activity Date Activity User E-Sign Co-Sign Detail Recorded Client Recorded Date Recorded By Document 06/02/19 09:01 GAGE [id number] 06/02/19 09:06 GAGE 06/02/19 09:01 Wound Center Nurse 2 #1 Left Heel -Time 09:01 -Correct Patient Yes -Correct Side, Site, Position Yes -Correct Procedure Yes -Procedure Performed Yes -Type of Procedure Debridement -Clinical Debridement Subcutaneous -Post Debridement Size (cm) - Length 1.5 -Post Debridement Size (cm) - Width 1.5 -Post Debridement Size (cm) - Depth 1.0 -Total Square Cm 2.25 -Wound/Ulcer Outcome Not Healed -Ulcer Cleansing Rinsed/ Irrigated with Saline -Foul Odor after Cleansing No -Bioengineered Tissue No -Bleeding Controlled with Pressure -Offloading Yes -Type of Offloading Knee Walker -Treatment Response Procedure Tolerated Well Pain Scale: 0-10 Numeric Is Patient Pain Free? Yes Wound debrided: plantar heel Laterality: Left Wound Grade/Stage: grade 3 Type of Debridement: Excisional debridement Anesthesia Used: 5% Lidocaine Gel Depth: in the subcutaneous layer Percentage of wound debrided: 100 Instrument Used: #15 blade Tissue Removed: fibrous, devitalized subcutaneous, biofilm, slough Severity: Fat Layer Exposed Amount of bleeding with debridement: Mild Bleeding Controlled with: Pressure Patient tolerated procedure well Assessment/Plan Active Problems Type 2 diabetes mellitus with diabetic polyneuropathy (Chronic) PVD (peripheral vascular disease) (Chronic) Chronic ulcer of left foot with fat layer exposed (Chronic) Delayed wound healing (Chronic) Malnutrition (Chronic) Assessment: Left heel ulcer, no infection with previous grade 3 ulcer status with osteomyelitis. Left Achilles tendon rupture healed. Peripheral vascular disease. Diabetes with neuropathy. Malnutrition. Other comorbidities. Walking difficulty Plan: Patient was examined and evaluated today. I reviewed and discussed his case. Debridement was performed today as noted in the clinical panel. He has clinical resolution of infection. His full course of advanced wound healing product, epi-cord was completed. He has benefited from this and this is medically necessary for limb salvage. At this time, I recommend l a hold from [facility] for the next week. I recommend changing the dressing every other day with saline wet-to-dry gauze which will stimulate serial debridements throughout the week. I also recommend return for operating room debridement application of amnio fill; he refuses at this time. He understands this is a staged comprehensive wound healing plan and he is still at risk for limb loss. The benefits were discussed and this is more user-friendly. To continue strict offloading by wearing a Cam walking boot and using a knee roller, crutches, a walker to keep weight off of the site. Compliance was discussed. He understands this will significantly impair his healing process and he is at risk for limb loss. To continue knee roller use at home to aid with compliance. It is noted he completed a course of antibiotics via PICC line. It is noted his noninvasive vascular studies were abnormal again and he has had previous lower extremity ulcers with significant delayed healing. He saw Dr. Beck and angiogram was performed. I answered all of his questions. To return to clinic in 1 week or call sooner if he has any questions or concerns. I also recommended referral to the [facility] wound healing center in [place] when he is ready to make the trip.
[2019-06-09 08:24] VITALS: BP 151/74; PULSE 81; RESP 18; TEMP 36.6; BMI 28.3
--- NOTE | 2019-06-09 09:12 | PCM.WC.PN ---
(1) Chronic ulcer of left foot with fat layer exposed Status: Chronic Current Visit: Yes Code(s): L97.522 - Non-pressure chronic ulcer of other part of left foot with fat layer exposed (2) Osteomyelitis of left foot Status: Resolved Current Visit: Yes Code(s): M86.9 - Osteomyelitis, unspecified (3) Type 2 diabetes mellitus with diabetic polyneuropathy Status: Chronic Current Visit: Yes Code(s): E11.42 - Type 2 diabetes mellitus with diabetic polyneuropathy (4) PVD (peripheral vascular disease) Status: Chronic Current Visit: Yes Code(s): I73.9 - Peripheral vascular disease, unspecified (5) Delayed wound healing Status: Chronic Current Visit: Yes Code(s): T14.8XXD - Other injury of unspecified body region, subsequent encounter (6) Malnutrition Status: Chronic Current Visit: Yes Code(s): E46 - Unspecified protein-calorie malnutrition Type of Wound Date of Service: 06/09/19 Chief Complaint: Left heel ulcer History of Wound: This 74-year-old male with multiple comorbidities is seen today for left plantar heel ulcer. He had a history of neglected left Achilles tendon rupture that was treated conservatively. He denies fever, chill, nausea, vomiting. He did have previous claudication symptoms. He continues to remain nonweightbearing. He had vascular surgery intervention performed recently with Dr. Beck. He is with his neighbor today. He defers additional advanced treatment such as hyperbaric oxygen and additional surgical debridement on this site. He is unable to transport on his own without assistance. Progress of Wound: Stable - Physical Exam Vital Signs Temp Pulse Resp BP 98 F 81 18 151/74 H 06/09/19 08:24 06/09/19 08:24 06/09/19 08:24 06/09/19 08:24 General: Alert, Oriented x3, Cooperative, No apparent distress Extremities: No cyanosis, Capillary Refill Less than 3 Seconds, No Calf Tenderness, Diminished Peripheral Pulses, Edema Skin: Ulcer/ Wound - no purulence ,no erythema, no infection, no necrosis. granulation tissue is noted to the ulcer base. peripheral skin is atrophic and hairless Wound Measurements and Assessment WC - Nurse 1 - General Ulcer Measurement Start: 06/02/19 08:26 Freq: Status: Active Protocol: Activity Type Activity Date Activity User E-Sign Co-Sign Detail Recorded Client Recorded Date Recorded By Document 06/09/19 08:24 [id number] 06/09/19 08:26 DL 06/09/19 08:24 Wound Center Nurse 1 [Ulcer Assessment] #1 Left Heel -Current Size (cm) - Length 1.7 -Current Size (cm) - Width 1.7 -Current Size (cm) - Depth 0.8 -Total Square Cm 2.89 -Photo Taken No -Undermining/Tunneling Starts (O' 10 clock) -Undermining/Tunneling Ends (O'clock) 1 -Maximum Distance (cm) 0.7 -Exudate Amt Small -Exudate Type Serosanguineous -Wound Margin Thickened -Granulation Amt Small (1-33%) -Granulation Quality [place] -Necrosis Amt Large (67-100%) -Necrotic Tissue Type Adherent Slough -Structure Exposed N/A -Texture (Emily-wound Skin Appearance) Callus,Scarring -Moisture (Emily-wound Skin Appearance Maceration ) -Color (Emily-wound Skin Appearance) No Abnormality -Temperature (Emily-wound Skin No Abnormality Appearance) (Pt Warm) -Tenderness on Palpation (Emily-wound No Skin Appearance) -Ulcer Cleansing Wound Cleanser -Anesthetic Used 4% Lidocaine Solution WC - Nurse 2 - General Ulcer CM Notes Start: 06/02/19 08:26 Freq: Status: Active Protocol: Activity Type Activity Date Activity User E-Sign Co-Sign Detail Recorded Client Recorded Date Recorded By Document 06/09/19 08:40 GAGE [id number] 06/09/19 08:41 JF 06/09/19 08:40 Wound Center Nurse 2 [Procedure/Treatment] -Time 08:41 -Correct Patient Yes -Correct Side, Site, Position Yes -Correct Procedure Yes -Procedure Performed Yes -Type of Procedure Debridement -Clinical Debridement Subcutaneous -Post Debridement Size (cm) - Length 1.8 -Post Debridement Size (cm) - Width 1.8 -Post Debridement Size (cm) - Depth 0.7 -Total Square Cm 3.24 -Wound/Ulcer Outcome Not Healed -Ulcer Cleansing Rinsed/ Irrigated with Saline -Foul Odor after Cleansing No -Bioengineered Tissue No -Bleeding Controlled with Pressure -Offloading Yes -Type of Offloading Knee Walker -Treatment Response Procedure Tolerated Well [See Physician Procedure note for Specifics] Musculoskeletal: No Tenderness to Palpation of Joints or Extremities, Muscle Wasting Neurological: - - lack of normal epicritic sensation via light touch consistent with neuropathy Psych/Mental Status: Normal Affect, Appropriate Debridement Note Post-Debridement Measurements/Treatment WC - Nurse 2 - General Ulcer CM Notes Start: 06/02/19 08:26 Freq: Status: Active Protocol: Activity Type Activity Date Activity User E-Sign Co-Sign Detail Recorded Client Recorded Date Recorded By Document 06/02/19 09:01 [id number] 06/02/19 09:06 Document 06/09/19 08:40 [id number] 06/09/19 08:41 06/02/19 06/09/19 09:01 08:40 Wound Center Nurse 2 #1 Left Heel -Time 09:01 08:41 -Correct Patient Yes Yes -Correct Side, Site, Position Yes Yes -Correct Procedure Yes Yes -Procedure Performed Yes Yes -Type of Procedure Debridement Debridement -Clinical Debridement Subcutaneous Subcutaneous -Post Debridement Size (cm) - Length 1.5 1.8 -Post Debridement Size (cm) - Width 1.5 1.8 -Post Debridement Size (cm) - Depth 1.0 0.7 -Total Square Cm 2.25 3.24 -Wound/Ulcer Outcome Not Healed Not Healed -Ulcer Cleansing Rinsed/ Rinsed/ Irrigated with Irrigated with Saline Saline -Foul Odor after Cleansing No No -Bioengineered Tissue No No -Bleeding Controlled with Pressure Pressure -Offloading Yes Yes -Type of Offloading Knee Walker Knee Walker -Treatment Response Procedure Procedure Tolerated Well Tolerated Well Pain Scale: 0-10 Numeric Is Patient Pain Free? Yes Wound debrided: plantar heel Laterality: Left Wound Grade/Stage: grade 3 Type of Debridement: Excisional debridement Anesthesia Used: 5% Lidocaine Gel Depth: in the subcutaneous layer Percentage of wound debrided: 100 Instrument Used: #15 blade Tissue Removed: fibrous, devitalized subcutaneous, biofilm, slough Severity: Fat Layer Exposed Amount of bleeding with debridement: Mild Bleeding Controlled with: Pressure Patient tolerated procedure well Assessment/Plan Active Problems Type 2 diabetes mellitus with diabetic polyneuropathy (Chronic) PVD (peripheral vascular disease) (Chronic) Chronic ulcer of left foot with fat layer exposed (Chronic) Delayed wound healing (Chronic) Malnutrition (Chronic) Assessment: Left heel ulcer, no infection with previous grade 3 ulcer status with osteomyelitis. Left Achilles tendon rupture healed. Peripheral vascular disease. Diabetes with neuropathy. Malnutrition. Other comorbidities. Walking difficulty Plan: Patient was examined and evaluated today. I reviewed and discussed his case. Debridement was performed today as noted in the clinical panel. He has clinical resolution of infection. His full course of advanced wound healing product, epi-cord was completed. He has benefited from this and this is medically necessary for limb salvage. At this time, I recommend l a hold from [facility] for the next week. I recommend changing the dressing every other day with saline wet-to-dry gauze which will stimulate serial debridements throughout the week. I also recommend return for operating room debridement application of amnio fill; he refuses at this time. He understands this is a staged comprehensive wound healing plan and he is still at risk for limb loss. The benefits were discussed and this is more user-friendly. To continue strict offloading by wearing a Cam walking boot and using a knee roller, crutches, a walker to keep weight off of the site. Compliance was discussed. He understands this will significantly impair his healing process and he is at risk for limb loss. To continue knee roller use at home to aid with compliance. It is noted he completed a course of antibiotics via PICC line. It is noted his noninvasive vascular studies were abnormal again and he has had previous lower extremity ulcers with significant delayed healing. He saw Dr. Beck and angiogram was performed. I answered all of his questions. To return to clinic in 1 week or call sooner if he has any questions or concerns. I also recommended referral to the [facility] wound healing center in [place] when he is ready to make the trip.
== END 2019-06-26 23:59 ==
LOC: WC 08:15
PROVIDERS: Family Provider Family Medicine; PCP Family Medicine; Referring Provider Podiatrist; Visit Provider Podiatrist
DX: E11.621 Type 2 diabetes mellitus with foot ulcer (principal); E11.42 Type 2 diabetes mellitus with diabetic polyneuropathy; E11.51 Type 2 diabetes mellitus with diabetic peripheral angiopathy without gangrene; L97.422 Non-pressure chronic ulcer of left heel and midfoot with fat layer exposed; R26.2 Difficulty in walking, not elsewhere classified
CPT/HCPCS: 11042

== ENCOUNTER 2019-07-14 08:30 | Outpatient (RCR) | payer MEDICARE, SELFPAY ==
[2019-06-27 00:34] VITALS: BP 151/74; PULSE 81; RESP 18; TEMP 36.6
[2019-06-30 08:29] VITALS: BP 148/70; PULSE 75; RESP 20; TEMP 36.3; BMI 28.3
--- NOTE | 2019-06-30 10:02 | PN.PCM_ITS ---
(1) Chronic ulcer of left foot with fat layer exposed Status: Chronic Current Visit: Yes Code(s): L97.522 - Non-pressure chronic ulcer of other part of left foot with fat layer exposed (2) Walking difficulty due to ankle and foot Status: Chronic Current Visit: Yes Code(s): R26.2 - Difficulty in walking, not elsewhere classified (3) Type 2 diabetes mellitus with diabetic polyneuropathy Status: Chronic Current Visit: Yes Code(s): E11.42 - Type 2 diabetes mellitus with diabetic polyneuropathy (4) PVD (peripheral vascular disease) Status: Chronic Current Visit: Yes Code(s): I73.9 - Peripheral vascular di sease, unspecified (5) Delayed wound healing Status: Chronic Current Visit: Yes Code(s): T14.8XXD - Other injury of unspecified body region, subsequent encounter (6) Malnutrition Status: Chronic Current Visit: Yes Code(s): E46 - Unspecified protein- calorie malnutrition Type of Wound Date of Service: 06/30/19 Chief Complaint: Left heel ulcer History of Wound: This 74-year-old male with multiple comorbidities is seen today for left plantar heel ulcer. He had a history of neglected left Achilles tendon rupture that was treated conservatively. He denies fever, chill, nausea, vomiting. He did have previous claudication symptoms. He continues to remain nonweightbearing. He had vascular surgery intervention performed recently with Dr. Beck. He is with his neighbor today. He defers additional advanced treatment such as hyperbaric oxygen and additional surgical debridement on this site. He is unable to transport on his own without assistance. Progress of Wound: Stable - Physical Exam Vital Signs Temp Pulse Resp BP 97.3 F L 75 20 H 148/70 H 06/30/19 08:29 06/30/19 08:29 06/30/19 08:29 06/30/19 08:29 General: Alert, Oriented x3, Cooperative, No apparent distress Extremities: No cyanosis, Capillary Refill Less than 3 Seconds, No Calf Tenderness, Diminished Peripheral Pulses, Edema Skin: Ulcer/ Wound - No purulence, erythema, string, odor, infection. There is no exposed bone or periosteal tissue as noted on prior exams. The adjacent skin is hairless and atrophic Wound Measurements and Assessment WC - Nurse 1 - General Ulcer Measurement Start: 12/04/19 08:29 Freq: Status: Active Protocol: Activity Type Activity Date Activity User E-Sign Co-Sign Detail Recorded Client Recorded Date Recorded By Document 06/30/19 08:29 DL [id number] 06/30/19 08:34 DL 06/30/19 08:29 Wound Center Nurse 1 [Ulcer Assessment] #1 Left Heel -Current Size (cm) - Length 1.7 -Current Size (cm) - Width 1.6 -Current Size (cm) - Depth 1 -Total Square Cm 2.72 -Photo Taken No -Exudate Amt Small -Exudate Type Serosanguineous -Wound Margin Thickened & Rolled Under -Granulation Amt Small (1-33%) -Granulation Quality [place],Red -Necrosis Amt Large (67-100%) -Necrotic Tissue Type Adherent Slough -Structure Exposed N/A -Texture (Emily-wound Skin Appearance) Scarring -Moisture (Emily-wound Skin Appearance Maceration ) -Color (Emily-wound Skin Appearance) No Abnormality -Temperature (Emily-wound Skin No Abnormality Appearance) (Pt Warm) -Tenderness on Palpation (Emily-wound No Skin Appearance) -Ulcer Cleansing Wound Cleanser -Foul Odor after Cleansing No -Anesthetic Used 4% Lidocaine Solution [Edema Assessment] -Right Calf (cm) 32.5 -Right Ankle (cm) 20.2 WC - Nurse 2 - General Ulcer CM Notes Start: 06/30/19 08:29 Freq: Status: Active Protocol: Activity Type Activity Date Activity User E-Sign Co-Sign Detail Recorded Client Recorded Date Recorded By Document 06/30/19 09:08 GAGE [id number] 06/30/19 09:10 06/30/19 09:08 Wound Center Nurse 2 [Procedure/Treatment] #1 Left Heel -Time 09:08 -Correct Patient Yes -Correct Side, Site, Position Yes -Correct Procedure Yes -Procedure Performed Yes -Type of Procedure Debridement -Clinical Debridement Subcutaneous -Post Debridement Size (cm) - Length 1.8 -Post Debridement Size (cm) - Width 1.8 -Post Debridement Size (cm) - Depth 1.1 -Total Square Cm 3.24 -Wound/Ulcer Outcome Not Healed -Ulcer Cleansing Rinsed/ Irrigated with Saline -Foul Odor after Cleansing No -Bioengineered Tissue No -Bleeding Controlled with Pressure -Offloading Yes -Type of Offloading Knee Walker -Treatment Response Procedure Tolerated Well [See Physician Procedure note for Specifics] Pain Scale: 0-10 Numeric [Pain] -Is Patient Pain Free? Yes Musculoskeletal: No Tenderness to Palpation of Joints or Extremities, Muscle Wasting Neurological: - - Lack of epicritic sensation via light touch is consistent with neuropathy status Psych/Mental Status: Normal Affect, Appropriate Debridement Note Post-Debridement Measurements/Treatment WC - Nurse 2 - General Ulcer CM Notes Start: 06/30/19 08:29 Freq: Status: Active Protocol: Activity Type Activity Date Activity User E-Sign Co-Sign Detail Recorded Client Recorded Date Recorded By Document 06/30/19 09:08 GAGE [id number] 06/30/19 09:10 GAGE 06/30/19 09:08 Wound Center Nurse 2 #1 Left Heel -Time 09:08 -Correct Patient Yes -Correct Side, Site, Position Yes -Correct Procedure Yes -Procedure Performed Yes -Type of Procedure Debridement -Clinical Debridement Subcutaneous -Post Debridement Size (cm) - Length 1.8 -Post Debridement Size (cm) - Width 1.8 -Post Debridement Size (cm) - Depth 1.1 -Total Square Cm 3.24 -Wound/Ulcer Outcome Not Healed -Ulcer Cleansing Rinsed/ Irrigated with Saline -Foul Odor after Cleansing No -Bioengineered Tissue No -Bleeding Controlled with Pressure -Offloading Yes -Type of Offloading Knee Walker -Treatment Response Procedure Tolerated Well Pain Scale: 0-10 Numeric Is Patient Pain Free? Yes Wound debrided: plantar heel Laterality: Left Wound Grade/Stage: grade 3 Type of Debridement: Excisional debridement Anesthesia Used: 5% Lidocaine Gel Depth: in the subcutaneous layer Percentage of wound debrided: 100 Instrument Used: #15 blade Tissue Removed: fibrous, devitalized subcutaneous, biofilm, slough Severity: Fat Layer Exposed Amount of bleeding with debridement: Mild Bleeding Controlled with: Pressure Patient tolerated procedure well Assessment/Plan Active Problems Walking difficulty due to ankle and foot (Chronic) Type 2 diabetes mellitus with diabetic polyneuropathy (Chronic) PVD (peripheral vascular disease) (Chronic) Chronic ulcer of left foot with fat layer exposed (Chronic) Delayed wound healing (Chronic) Malnutrition (Chronic) Assessment: Left heel ulcer, no infection with previous grade 3 ulcer status with osteomyelitis. Left Achilles tendon rupture healed. Peripheral vascular disease. Diabetes with neuropathy. Malnutrition. Other comorbidities. Walking difficulty Plan: Patient was examined and evaluated today. I reviewed and discussed his case. Debridement was performed today as noted in the clinical panel and the indications and anticipated response to this was discussed in detail. He has clinical resolution of infection. His full course of advanced wound healing product, epi-cord was completed. He has benefited from this and this is medically necessary for limb salvage. At this time, I recommend that he changes the dressing daily with Joana. I also recommend return for operating room debridement application of amnio fill; he refuses at this time. He understands this is a staged comprehensive wound healing plan and he is still at risk for limb loss. The benefits were discussed and this is more user-friendly. To continue strict offloading by wearing a Cam walking boot and using a knee roller, crutches, a walker to keep weight off of the site. Compliance was discussed. He understands this will significantly impair his healing process and he is at risk for limb loss. To continue knee roller use at home to aid with compliance. It is noted he completed a course of antibiotics via PICC line. It is noted his noninvasive vascular studies were abnormal again and he has had previous lower extremity ulcers with significant delayed healing. He saw Dr. Beck and angiogram was performed. I answered all of his questions. To return to clinic in 1 week or call sooner if he has any questions or concerns. I also recommended referral to the [facility] wound healing center in [place] when he is ready to make the trip.
[2019-07-14 08:29] VITALS: BP 149/72; PULSE 79; RESP 18; BMI 28.3
--- NOTE | 2019-07-14 10:02 | PCM.WC.PN ---
(1) Chronic ulcer of left foot with fat layer exposed Status: Chronic Current Visit: Yes Code(s): L97.522 - Non-pressure chronic ulcer of other part of left foot with fat layer exposed (2) Walking difficulty due to ankle and foot Status: Chronic Current Visit: Yes Code(s): R26.2 - Difficulty in walking, not elsewhere classified (3) Type 2 diabetes mellitus with diabetic polyneuropathy Status: Chronic Current Visit: Yes Code(s): E11.42 - Type 2 diabetes mellitus with diabetic polyneuropathy (4) PVD (peripheral vascular disease) Status: Chronic Current Visit: Yes Code(s): I73.9 - Peripheral vascular disease, unspecified (5) Delayed wound healing Status: Chronic Current Visit: Yes Code(s): T14.8XXD - Other injury of unspecified body region, subsequent encounter (6) Malnutrition Status: Chronic Current Visit: Yes Code(s): E46 - Unspecified protein-calorie malnutrition Type of Wound Date of Service: 07/14/19 Chief Complaint: Left heel ulcer History of Wound: This 74-year-old male with multiple comorbidities is seen today for left plantar heel ulcer. He had a history of neglected left Achilles tendon rupture that was treated conservatively. He denies fever, chill, nausea, vomiting. He did have previous claudication symptoms. He continues to remain nonweightbearing. He had vascular surgery intervention performed recently with Dr. Beck. He is with his neighbor today. He defers additional advanced treatment such as hyperbaric oxygen and additional surgical debridement on this site. He is unable to transport on his own without assistance. He is interested in proceeding with operating room debridement and advanced wound healing product application as discussed last week. He is with his neighbor today. Progress of Wound: Stable - Physical Exam Vital Signs Temp Pulse Resp BP 97.3 F L 79 18 149/72 H 06/30/19 08:29 07/14/19 08:29 07/14/19 08:29 07/14/19 08:29 General: Alert, Oriented x3, Cooperative, No apparent distress Extremities: No cyanosis, Capillary Refill Less than 3 Seconds, No Calf Tenderness, Diminished Peripheral Pulses, Edema - Mild Skin: Ulcer/ Wound - No purulence, erythema, string, odor, infection. There is peripheral callus noted there is no longer any exposed bone or periosteal tissue to the deep wound bed and there is continued granulation development. His peripheral skin is hairless and atrophic Wound Measurements and Assessment WC - Nurse 1 - General Ulcer Measurement Start: 06/30/19 08:29 Freq: Status: Active Protocol: Activity Type Activity Date Activity User E-Sign Co-Sign Detail Recorded Client Recorded Date Recorded By Document 07/14/19 08:29 BS [id number] 07/14/19 08:34 BS 07/14/19 08:29 Wound Center Nurse 1 [Ulcer Assessment] #1 Left Heel -Combined with other wound No -Current Size (cm) - Length 2 -Current Size (cm) - Width 2 -Current Size (cm) - Depth 1 -Total Square Cm 4 -Photo Taken No -Necrotic Tissue Type Adherent Slough -Moisture (Emily-wound Skin Appearance Assessed, ) Maceration,Dry/ Scaly -Temperature (Emily-wound Skin No Abnormality Appearance) (Pt Warm) -Tenderness on Palpation (Emily-wound No Skin Appearance) -Ulcer Cleansing Rinsed/ Irrigated with Saline -Foul Odor after Cleansing No -Anesthetic Used 4% Lidocaine Solution WC - Nurse 2 - General Ulcer CM Notes Start: 06/30/19 08:29 Freq: Status: Active Protocol: Activity Type Activity Date Activity User E-Sign Co-Sign Detail Recorded Client Recorded Date Recorded By Document 07/14/19 09:22 DL [id number] 07/14/19 09:23 DL 07/14/19 09:22 Wound Center Nurse 2 [Procedure/Treatment] -Time 09:23 -Correct Patient Yes -Correct Side, Site, Position Yes -Correct Procedure Yes -Procedure Performed Yes -Type of Procedure Debridement -Clinical Debridement Subcutaneous -Post Debridement Size (cm) - Length 2.2 -Post Debridement Size (cm) - Width 2.1 -Post Debridement Size (cm) - Depth 1.0 -Total Square Cm 4.62 -Wound/Ulcer Outcome Not Healed -Ulcer Cleansing Rinsed/ Irrigated with Saline -Foul Odor after Cleansing No -Bioengineered Tissue No -Bleeding Controlled with Pressure -Offloading Yes -Type of Offloading Knee Walker -Treatment Response Procedure Tolerated Well [See Physician Procedure note for Specifics] Pain Scale: 0-10 Numeric [Pain] -Is Patient Pain Free? Yes Musculoskeletal: No Tenderness to Palpation of Joints or Extremities, Muscle Wasting Neurological: - - Lack of normal epicritic sensation light touch is consistent with neuropathy Psych/Mental Status: Normal Affect, Appropriate Debridement Note Post-Debridement Measurements/Treatment WC - Nurse 2 - General Ulcer CM Notes Start: 06/30/19 08:29 Freq: Status: Active Protocol: Activity Type Activity Date Activity User E-Sign Co-Sign Detail Recorded Client Recorded Date Recorded By Document 06/30/19 09:08 JF [id number] 06/30/19 09:10 JF Document 07/14/19 09:22 DL [id number] 07/14/19 09:23 DL 06/30/19 07/14/19 09:08 09:22 Wound Center Nurse 2 #1 Left Heel -Time 09:08 09:23 -Correct Patient Yes Yes -Correct Side, Site, Position Yes Yes -Correct Procedure Yes Yes -Procedure Performed Yes Yes -Type of Procedure Debridement Debridement -Clinical Debridement Subcutaneous Subcutaneous -Post Debridement Size (cm) - Length 1.8 2.2 -Post Debridement Size (cm) - Width 1.8 2.1 -Post Debridement Size (cm) - Depth 1.1 1.0 -Total Square Cm 3.24 4.62 -Wound/Ulcer Outcome Not Healed Not Healed -Ulcer Cleansing Rinsed/ Rinsed/ Irrigated with Irrigated with Saline Saline -Foul Odor after Cleansing No No -Bioengineered Tissue No No -Bleeding Controlled with Pressure Pressure -Offloading Yes Yes -Type of Offloading Knee Walker Knee Walker -Treatment Response Procedure Procedure Tolerated Well Tolerated Well Pain Scale: 0-10 Numeric Is Patient Pain Free? Yes Yes Wound debrided: plantar heel Laterality: Left Wound Grade/Stage: grade 3 Type of Debridement: Excisional debridement Anesthesia Used: 5% Lidocaine Gel Depth: in the subcutaneous layer Percentage of wound debrided: 100 Instrument Used: #15 blade Tissue Removed: fibrous, devitalized subcutaneous, biofilm, slough Severity: Fat Layer Exposed Amount of bleeding with debridement: Mild Bleeding Controlled with: Pressure Patient tolerated procedure well Assessment/Plan Active Problems Walking difficulty due to ankle and foot (Chronic) Type 2 diabetes mellitus with diabetic polyneuropathy (Chronic) PVD (peripheral vascular disease) (Chronic) Chronic ulcer of left foot with fat layer exposed (Chronic) Delayed wound healing (Chronic) Malnutrition (Chronic) Assessment: Left heel ulcer, no infection with previous grade 3 ulcer status with osteomyelitis. Left Achilles tendon rupture healed. Peripheral vascular disease. Diabetes with neuropathy. Malnutrition. Other comorbidities. Walking difficulty Plan: Patient was examined and evaluated today. I reviewed and discussed his case. Debridement was performed today as noted in the clinical panel and the indications and anticipated response to this was discussed in detail. He has clinical resolution of infection. His full course of advanced wound healing product, epi-cord was completed. He has benefited from this and this is medically necessary for limb salvage. At this time, I recommend that he changes the dressing daily with Joana. I also recommend return for operating room debridement application of amnio fill; he is amendable to proceed at this time. public relations coordinator nurse, Jeanmarie, will contact him to arrange his surgical date and clearance. He understands this is a staged comprehensive wound healing plan and he is still at risk for limb loss. To continue strict offloading by wearing a Cam walking boot and using a knee roller, crutches, a walker to keep weight off of the site. Compliance was discussed. He understands this will significantly impair his healing process and he is at risk for limb loss. To continue knee roller use at home to aid with compliance. It is noted he completed a course of antibiotics via PICC line. It is noted his noninvasive vascular studies were abnormal again and he has had previous lower extremity ulcers with significant delayed healing. He saw Dr. Beck and angiogram was performed. I answered all of his questions. To return to clinic in 2 weeks or call sooner if he has any questions or concerns. I also recommended referral to the [facility] wound healing center in [place] when he is ready to make the trip.
== END 2019-07-27 23:59 ==
LOC: WC 08:30
PROVIDERS: Family Provider Family Medicine; PCP Family Medicine; Referring Provider Podiatrist; Visit Provider Podiatrist
DX: E11.621 Type 2 diabetes mellitus with foot ulcer (principal); E11.42 Type 2 diabetes mellitus with diabetic polyneuropathy; E11.51 Type 2 diabetes mellitus with diabetic peripheral angiopathy without gangrene; L97.422 Non-pressure chronic ulcer of left heel and midfoot with fat layer exposed; R26.2 Difficulty in walking, not elsewhere classified
CPT/HCPCS: 11042

== ENCOUNTER → 2019-08-02 15:06 | Outpatient (CLI) | payer MEDICARE, SELFPAY ==
[2019-07-30 13:22] VITALS: BMI 28.3
[2019-08-02 17:14] LABS: Absolute Lymphocyte Count 3.38 X10^3/uL (0.83-4.51); Absolute Neutrophil Count 5.8 X10^3/uL (2.0-7.7); Basophil# 0.06 X10^3/uL; Basophil% 0.6 % (0-1); Eosinophil# 0.15 X10^3/uL; Eosinophils% 1.5 % (0-5); Hematocrit 39.3 % (40-54); Hemoglobin 13.1 g/dL (13.0-16.5); Lymphocyte # 3.38 X10^3/ul (4.0); Mean Corp Hgb Conc 33.3 g/dL (32-36); Mean Corpuscular Hgb 31.2 pg (27.0-32.0); Mean Corpuscular Volume 93.6 fL (80-94); Mean Platelet Vol. 10.1 fl (6.2-12.0); Monocyte# 0.83 X10^3/uL; Monocyte% 8.1 % (0-10); NRBC Flagged by Analyzer 0 % (0-5); Neutrophil # 5.79 X10^3/uL (2.7-7.7); Neutrophil % 56.5 % (47-70); Platelet Count 246 K/mm3 (150-450); RBC Distribution Width CV 12.8 % (11.6-14.6); White Blood Count 10.2 K/mm3 (4.4-11.0)
[2019-08-02 17:32] LABS: Anion Gap 5 (5-15); BUN 10 mg/dL (7-18); BUN/Creat Ratio 10.4 RATIO (10-20); Calcium,Total 9.4 mg/dL (8.5-10.1); Chloride 100 mmol/L (98-107); Creatinine, Serum 0.96 mg/dL (0.70-1.30); EST Glomerular Filtration Rate 82 mL/min (>60); Est Glom Filt Rate - Afr Amer 99 mL/min (>60); Glucose 175 mg/dL (74-106); Potassium 4.2 mmol/L (3.5-5.1); Sodium Level 135 mmol/L (136-145)
== END ==
PROVIDERS: Family Provider Family Medicine; PCP Family Medicine; Visit Provider Family Medicine
DX: Z01.818 Encounter for other preprocedural examination (principal); I10 Essential (primary) hypertension; E11.9 Type 2 diabetes mellitus without complications
CPT/HCPCS: 36415; 80048; 85025

== ENCOUNTER → 2019-08-04 09:38 | Outpatient (CLI) | payer MEDICARE, SELFPAY ==
[2019-08-03 13:13] VITALS: BMI 28.4
--- NOTE | 2019-08-04 09:42 | ECHOD_ITS ---
Reason For Study: Pre operative Procedure This was a 2D Doppler, Color Flow transthoracic echocardiogram. Exam performed in department. Left Ventricle Mildly dilated left ventricle. The estimated ejection fraction is 65 %. Stage 1 diastolic dysfunction. No regional wall motion abnormalities noted. Right Ventricle Normal size and thickness. A moderator band is seen in the right ventricle. Normal systolic function. Atria Normal left atrium. Normal right atrium. Normal atrial septum. Mitral Valve The mitral valve is structurally normal. No prolapse or stenosis seen. Tricuspid Valve Normal tricuspid valve. Unable to estimate RV systolic pressure due to insufficient tricuspid regurgitant envelope. Aortic Valve Trisinus/trileaflet aortic valve. Mild focal aortic valve thickening. There is no aortic stenosis. Pulmonic Valve Normal pulmonic valve. Great Vessels Normal aortic root. Normal arch. Normal inferior vena cava. Inferior vena cava collapse with sniff. Pericardium/Pleural No pericardial effusion. MMode/2D Measurements & Calculations LVIDd: 5.2 cm IVSd: 0.86 cm Ao root diam: 3.2 cm LVIDs: 3.5 cm LVPWd: 1.0 cm RVDd: 3.5 cm FS: 32.0 % LAV(MOD-bp): 60.5 ml LA A4 area: 19.1 cm2 LA dimension(2D): 3.7 cm LAV(MOD-bp) Indexed: 28.4 ml/m2 LAV(MOD-sp2): 69.6 ml LAV(MOD-sp4): 53.8 ml RA A4 area: 14.9 cm2 Time Measurements MV dec time: 0.17 sec Doppler Measurements & Calculations MV E max gage: 81.1 cm/sec Lat Peak E' Gage: 7.9 cm/sec Med Peak E' Gage: 6.4 cm/sec MV A max gage: 87.9 cm/sec E/E' lat: 10.2 E/E' med: 12.7 MV E/A: 0.92 Ao V2 max: 123.3 cm/sec LV V1 max: 99.5 cm/sec PA V2 max: 123.1 cm/sec Ao max P.1 mmHg LV V1 max P.0 mmHg Interpretation Summary The estimated ejection fraction is 65 %. Stage 1 diastolic dysfunction. Unable to estimate RV systolic pressure due to insufficient tricuspid regurgitant envelope. Mild focal aortic valve thickening located at the tip of the noncoronary cusp. Mildly dilated left ventricle. There is no comparison study available. Ordering Physician: Fawad Lozano Referring Physician: Marcellus Moore Performed By: Anastacia Garcias, YANELY, RVT
== END ==
LOC: CVS 09:39
PROVIDERS: Family Provider Family Medicine; PCP Family Medicine; Referring Provider Internal Medicine Cardiovascular Disease; Visit Provider Internal Medicine Cardiovascular Disease
DX: Z01.818 Encounter for other preprocedural examination (principal); R94.31 Abnormal electrocardiogram [ECG] [EKG]; E11.42 Type 2 diabetes mellitus with diabetic polyneuropathy; E78.5 Hyperlipidemia, unspecified; I10 Essential (primary) hypertension
CPT/HCPCS: 93306

== ENCOUNTER → 2019-08-05 10:24 | Outpatient (CLI) | payer MEDICARE, SELFPAY ==
[2019-08-03 13:13] VITALS: BMI 28.4
--- NOTE | 2019-08-05 10:24 | STEWCON_ITS ---
Reason For Study: ABN EKG, PRE-OP CLEARANCE Stress Results Protocol: Dobutatmine Stress Echo Maximum Predicted HR: 148 bpm Target HR: 126 bpm % Maximum Predicted HR: 88 % DurationHeart Rate Stage (mm:ss) (bpm) BP Dose Comment BASELINE 77 169/85 5 CC DILUTED DEFINITY GIVEN DSE- 10 MCG 3:27 100 174/8410.00NO SX, PVCS DSE- 20 MCG 3:25 130 166/9220.00NO SX, PVCS RECOVERY 91 170/94 DENIES COMPLAINT Stress Duration: 6:52 mm:ss Maximum Stress HR: 130 bpm Baseline Echocardiogram Findings The estimated ejection fraction is 65 %. Stress Echo Wall motion Data Resting WM Intermediate WM Stress WM Resting Wall Motion Wall Motion Stress No regional wall motion No regional wall motion abnormalities noted. abnormalities noted. EKG Data The baseline ECG displays normal sinus rhythm. The patient was titrated from 10 mcg to a maximum of 20 mcg of dobutamine during the stress. The maximum heart rate attained was 130 beats per minute. This was 87% of maximum predicted heart rate. At peak infusion, upsloping ST changes only were noted, which did not meet the criteria for ischemia. No clinical angina was noted. Interpretation Summary The estimated ejection fraction is 65 %. Normal, adequate, dobutamine echocardiogram. Negative for ischemia by echocardiographic criteria. No anginal symptoms noted. Rare PVCs noted which is a nonspecific finding utilizing dobutamine. Patient has subtle upsloping ST segment depression at peak infusion which resolved into recovery. No associated wall motion abnormalities noted. Final LVEF is 75%. Test terminated due to the attainment target heart rate. Decreased sensitivity due to poor echo windows requiring Definity agent. Patient tolerate procedure well. No complications. The study was technically difficult. Contrast injection was performed. Ordering Physician: Fawad Loazno Referring Physician: Fawad Lozano Performed By: Anastacia Garcias, YANELY, RVT
== END ==
LOC: CVS 10:24
PROVIDERS: Family Provider Family Medicine; PCP Family Medicine; Referring Provider Internal Medicine Cardiovascular Disease; Visit Provider Internal Medicine Cardiovascular Disease
DX: Z01.818 Encounter for other preprocedural examination (principal); R94.31 Abnormal electrocardiogram [ECG] [EKG]; I10 Essential (primary) hypertension; E78.5 Hyperlipidemia, unspecified; I73.9 Peripheral vascular disease, unspecified; E11.42 Type 2 diabetes mellitus with diabetic polyneuropathy; F10.20 Alcohol dependence, uncomplicated; F12.10 Cannabis abuse, uncomplicated; L97.429 Non-pressure chronic ulcer of left heel and midfoot with unspecified severity; R26.2 Difficulty in walking, not elsewhere classified
CPT/HCPCS: 93017; 93350; J7040; Q9957; A4216; C8928

== ENCOUNTER 2019-08-06 05:54 | Day surgery (SDC) | payer MEDICARE, SELFPAY ==
--- NOTE | 2019-08-03 01:52 | HP_ITS ---
HPI HPI History of Present Illness Surgical H&P: Yes Details: Mr. Martinez is a very pleasant 74-year-old gentleman with a history of hypertension, diabetes, alcohol dependence, hyperlipidemia, continuous marijuana use of 1-2 joints every week for about 50 years, occasional cigar use but no cigarette use,, peripheral neuropathy with subsequent ulcer on his left heel, obesity, referred to our office for preoperative stratification. In addition he has a long history of alcohol use drinking about 8-10 beers per day but used to drink heavy liquor in the past. A screening EKG dated 08/02/2019 showed normal sinus rhythm with Q waves in V1 2 and 3, and loss of R waves from her previous EKG dated 12/11/2018 across the anterior precordium. Currently the patient is in a wheelchair, and previous to that he walked with a portable knee scooter but nonetheless has denied any previous known coronary disease, catheterization or CVA. He denies any exertional chest pain, angina, chest pressure, shortness of breath or dyspnea on exertion. Of interest patient stated in August 2018 he moved into a home that had a malfunctioning furnace, and feels as though he may have had carbon monoxide poisoning requiring him to go to [facility] for evaluation. According to him he was not diagnosed with carbon oxide poisoning but complained of fatigue, decreased energy level, for several days after that event. Since then he has felt fine. In our office today his blood pressure is 160/60, pulse is 88 and regular. His physical exam demonstrates clear lungs bilaterally, no carotid bruits or thrills, regular rate and rhythm, no murmurs noted. EKG is as above. Lipids are pending. Intake Vital Signs 08/03/19 Height 5 ft 11 in 08/03/19 Weight: 204 lb 08/03/19 BMI 28.4 08/03/19 BP 160/60 H 08/03/19 Blood Pressure Location Lt brachial 08/03/19 Position Sitting 08/03/19 Respiration 20 H 08/03/19 Pulse 88 08/03/19 Pulse Source Auscultation Intake Visit Reasons: PCP ref'd for abn EKG, pre-op for Aug 06 Allergies No Known Allergies Allergy (Verified 08/02/19 18:03) Medications Aspirin [Aspirin, Baby] 81 mg PO DAILY@0800 07/03/15 [History Confirmed 08/03/19] Lovastatin [Mevacor] 20 mg PO DAILY 07/03/15 [History Confirmed 08/03/19] Multivit with Minerals/Lutein [Pub Multivitamin 50 Plus Tab] 1 ea PO DAILY 07/03/15 [History Confirmed 08/03/19] metFORMIN HCl [Glucophage] 1,000 mg PO BIDCM 07/03/15 [History Confirmed 08/03/19] Lisinopril 20 mg PO DAILY 12/09/18 [History Confirmed 08/03/19] [facility] Medical History Pre-op evaluation (Acute) Acute electrocardiogram changes (Acute) Hypertension (Chronic) Hyperlipidemia (Chronic) Peripheral vascular disease (Chronic) Type 2 diabetes mellitus with diabetic polyneuropathy (Chronic) EtOH dependence (Chronic) Marijuana abuse, continuous (Chronic) Ulcer of left heel (Acute) Walking difficulty due to ankle and foot (Chronic) Chronic ulcer of left foot with fat layer exposed (Chronic) Type 2 diabetes mellitus with diabetic polyneuropathy (Chronic) Achilles rupture, left (Chronic) Delayed wound healing (Chronic) Malnutrition (Chronic) Obesity (BMI 30.0-34.9) (Chronic) Cellulitis of left foot (Acute) Cellulitis of left foot (Resolved) Osteomyelitis of left foot (Resolved) Surgical History (Updated 08/03/19 @ 13:22 by Steffi Mcintosh) Amputated toe of right foot (Chronic ~2015) History of appendectomy (Chronic) Family History (Updated 08/03/19 @ 13:24 by Steffi Mcintosh) Father CAD (coronary artery disease) S/P CABG (coronary artery bypass graft) Mother , age 32 from Leukemia Leukemia Brother Heart disease Pt unsure if pt has heart valve problem or what issue is Social History (Updated 08/03/19 @ 13:54 by Fawad Lozano MD) Smoking Status: Former smoker alcohol intake: current details: 10 beers a day substance use type: marijuana ROS Const Const: Positive for other (Referred by Dr. Marcellus Moore for ekg changes/pre-op eval foot.); negative for fatigue, weakness, body ache, fever(s), headache(s), chills, frequent falls, night sweats, daytime sleepiness, difficulty sleeping, excessive sweating, weight gain, weight loss, increased appetite, poor appetite or anorexia Eyes Eyes: Negative for blind spots, loss of peripheral vision, transient loss of vision, blurry vision, change in vision, double vision, floaters, tunnel vision or other ENT ENT: Negative for headache(s), dizziness, hearing loss, tinnitus, Nosebleed/epistaxis, balance problems, post nasal drip, lip swelling, tongue swelling, bleeding gums, hoarseness, neck pain, dry mouth or other Cardio Chest Pain: No Palpitations: No Edema: None (Has dressing on right foot/heel.) Muscle aches with walking: None Resp Respiratory: Negative for SOB with activity, SOB at rest, SOB orthopnea\SOB lying down, Cough, Coughing up blood/hemoptysis, chest congestion, pain on inspiration, snoring, stridor, wheezing, crackles, paroxysmal nocturnal dyspnea or other GI GI: Negative nausea, vomiting, heartburn, constipation, belching, bloating, cramping, vomiting blood/hematemesis, bright, red blood in stools, black,tarry stools, loose stools, Difficulty Swallowing or other : Negative for hematuria, frequent nighttime urination/ nocturia, erectile dysfunction or abnormal vaginal bleeding Musc Musc: Negative for muscle aches/ myalgia, muscle weakness, joint pain or balance problems Skin Skin: Negative redness, non-healing lesions, rash, unusual bruising, skin ulcer, wounds, jaundice or other Neuro Neuro: Negative for dizziness, lightheadedness, near syncope, syncope, orthostatic symptoms, frequent falls, headache(s), weakness, confusion, memory loss, restless legs, blurry vision, double vision, vertigo, seizures, lack of coordination or other Slick Hematologic/Lymphatic: Negative for easy bleeding, easy bruising, enlarged lymph nodes or other Endo Endo: Negative for fatigue, cold intolerance, heat intolerance, excessive sweating, flushing, increased thirst/drinking, increased hunger, hair loss, hair growth or other Psych Psych: Negative for anxiety, depression, thoughts of harming anyone, thoughts of harming yourself, visual hallucinations, panic attacks or audible hallucinations Allergy Allergy/Immunology: Negative for throat swelling, Negative for tongue swelling, Negative for hives, Negative for rash, Negative for lip swelling Cardiology Exam Const Appearance: cooperative, healthy appearing and no acute distress Nutritional Appearance: well nourished Orientation: alert, oriented x3 and oriented to person Head Head: normal to inspection, normocephalic and atraumatic Nose: external nose normal Face and Sinus: face symmetric Mouth: oral mucosae normal Eyes General: appearance normal, both eyes and all related structures Eyelids: eyelids normal Conjunctivae: conjunctivae normal Pupils: PERRL and normal by confrontation EOM: EOM intact bilaterally Neck Neck: normal visual inspection and full ROM Carotids: normal carotid upstroke Chest Chest inspection: normal inspection of the chest Auscultation: Bilateral: Clear to Auscultation Cardio Palpation: normal PMI Rate: regular rate Rhythm: regular rhythm Heart sounds: S1 normal and S2 normal GI GI: normal to inspection, no hepatosplenomegaly and bowel sounds present Neuro General: alert, awake, oriented x3, CN's II-XI intact bilaterally and moves all extremities Skin Skin: no rashes or lesions noted Extremities Pulses: Normal: Right Femoral Pulse, Left Femoral Pulse, Right Dorsalis Pedis Pulse, Left Dorsalis Pedis Pulse, Right Posterior Tibial Pulse, Left Posterior Tibial Pulse, Right Radial Pulse, Left Radial Pulse Lower Extremity Edema: None: Bilateral Psych Psychological: normal affect Assessment & Plan 1. Pre-op evaluation Z01.818 Plan 1. Preoperative stratification: The patient needs to undergo a left heel debridement surgery and possible grafting of same, and his risk factors include his age, diabetes, hypertension, hyperlipidemia, marijuana use as a cigarette equivalent and abnormal EKG. Thankfully, the patient has had no exertional anginal symptoms in the last 6 months. However, he has been fairly limited due to his peripheral vascular disease and his musculoskeletal disease of his right knee. I recommend the patient undergo a dobutamine echocardiogram for cardiac re- stratification. If this is grossly abnormal, his surgery may need to be postponed for diagnostic coronary angiogram. If however it is negative for inducible ischemia he will be deemed at low risk for noncardiac surgery. In addition I recommend he obtain a 2D echo with Doppler to evaluate his LV function particularly of the anterior wall given his abnormal EKG. His abnormal EKG may be a false positive due to lead misplacement but he has had a significant difference in R wave progression between his EKG in November 2018 and his EKG in July 2019. In the meantime we will continue baby aspirin, lisinopril. Would recommend we start him on Coreg 3.125 mg p.o. twice daily for his uncontrolled hypertension and for heart rate control during his surgery. Orders Orders: Echo Complete Today Stress Test Echo W/Contrast Today 2. Hyperlipidemia E78.5 Plan 2. Hyperlipidemia: We are awaiting a repeat lipid profile. Given his diabetes requires aggressive LDL reduction and would recommend an LDL less than 70. Orders Orders: Echo Complete Today Stress Test Echo W/Contrast Today Lipid Profile Today Liver Profile Today 3. Marijuana abuse, continuous F12.10 Plan 3. Marijuana use: I explained the patient the relationship between marijuana use and cigarette equivalency, and strongly recommended he discontinue all marijuana and tobacco products if indicated. 4. Return office in 6 months. This note was generated using a voice recognition system and there may be incorrect words, spelling or punctuation that were not noted when reviewing the office note prior to saving. Orders Orders: Stress Test Echo W/Contrast Today Plan Detail Other Orders Orders: Echo Complete Today E11.42, I10, R94.31 Stress Test Echo W/Contrast Today E11.42, F10.20, I10, I73.9, L97.429, R26.2, R94.31 Lipid Profile Today E11.42 Liver Profile Today F10.20 Follow Up +6M (Lozano) +2 weeks (BP CHECK) Coding Level of Care Code Off vis,new,level 4 Diagnoses Pre-op evaluation Z01.818 Hyperlipidemia E78.5 Marijuana abuse, continuous F12.10 Coding Level of Care Code Off vis,new,level 4 Diagnoses Pre-op evaluation Z01.818 Hyperlipidemia E78.5 Marijuana abuse, continuous F12.10 Supplemental Info Supplemental Information Diagnostics Electrocardiogram 12/11/18 Chest X-Ray 07/14/15 08/03/19 [id number] <Electronically signed by Fawad Lozano MD> Date _ Fawad Lozano MD
[2019-08-03 13:13] VITALS: BMI 28.4
[2019-08-06] VITALS (7 sets, daily range): BP systolic 144–163; BP diastolic 78–97; PULSE 71–81; RESP 16; TEMP 36.6–37.1; O2SAT 95–100; BMI 28.4
[2019-08-06] MEDS: Lactated Ringers 1,000 ML 80 ML IV (06:32)
[2019-08-06 07:05] LABS: Bedside Glucose 187 mg/dL (70-110)
[2019-08-06] MEDS: Bupivacaine Mpf 0.5% 30 ML VIAL (07:38)
[2019-08-06] MEDS: Cefazolin 2 GM in 0.9% Normal Saline 100 ML IV (08:01)
--- NOTE | 2019-08-06 08:19 | OP.PCM_ITS ---
Problem List (1) Type 2 diabetes mellitus with diabetic polyneuropathy Status: Chronic (2) Chronic ulcer of left foot with fat layer exposed Status: Chronic Report of Operation Date of Procedure: 08/06/19 Pre-Operative Diagnosis: Chronic ulcer left foot with delayed healing Post-Operative Diagnosis: Chronic ulcer left foot with delayed healing Surgery/Procedure Performed:: Debridement left heel ulcer with fat layer exposed. Application of advanced wound healing products; amnio fill and epi- cord Description of Surgical Findings:: Hemostasis: No tourniquet utilized, anatomic dissection was performed and pressure Materials: Amnio fill, epi-cord, 3-0 nylon, Adaptic Complications: None The patient tolerated the procedure and anesthesia well. He was transported to the PACU with vital signs stable and vascular status intact to the left lower extremity. He will keep his dressing clean and intact until follow-up next week and was discharged home upon stability. After debridement was performed and prior to advance product application, a culture was obtained and this result is pending. physiological chemist: none - Surgeon: Rebecca Cifuentes DPM. Customer Experience Consultant: Jersey Thakkar PGY1 Type of Anesthesia:: Local MAC - Preoperative: One-to-one mixture of 1% lidocaine plain and 0.5% Marcaine plain administered in local infiltrative manner at the ulcer site, 8 cc Specimen's removed: Post debridement and irrigation ulcer soft tissue culture was obtained and sent to microbiology for aerobic, anaerobic, acid-fast, fungal Estimated Blood Loss (mL): <100 cc - Complications Indications: This 74-year-old male with significant past medical history of diabetes with neuropathy peripheral vascular disease with prior intervention to his left superficial femoral artery, peroneal artery, and anterior tibial artery, blindness has been managed for chronic delayed healing left foot ulcer. The onset of the ulcer was over 7 months ago and was previously infected which was managed surgically and medically. He has also been treated under a comprehensive wound healing plan at the wound healing center with offloading, serial debridement, application of outpatient advanced wound healing products, nutrition supplementation, and dressing care. The indication, planned procedure, possible benefits, risk, complications, and anticipated healing time management were discussed in detail with the patient. He understands and elects to proceed with surgery at this time. Informed surgical consent was obtained. He understands risk and complications include but are not limited to following: Pain, swelling, scarring, need for further surgery, continued delayed or nonhealing, infection, blood clot, allergic reaction, loss of limb, function, life. His preoperative history and physical exam, clearance, recent echocardiogram, and diagnostic data including CBC were reviewed. Answered his questions. Procedure in detail: The patient was transported to the operating room via cart and placed on the operating table in supine position. Final verification of patient, planned procedure, and limb designation was performed via the timeout procedure. Preoperative local anesthetic was administered by the anesthesia team. The IV antibiotics were administered after the culture was obtained mid case. MAC anesthesia was initiated by the anesthesia team. The left lower extremity was prepped and draped in the usual aseptic manner. Surgery in the following manner: Attention was first directed to the plantar left heel which a 15 blade scalpel was used to excise the peripheral callus around the ulcer site which was also undermining. A [place] elevator was used to probe deep into the wound and there was no additional sinus tracking noting just undermining of approximately 4 mm. There was a mild odor with no distinct purulence, maceration, or deep necrosis. The ulcer bed was more fibrous in appearance today and was not directly over the bone however this is in close approximation. A versa jet was also used to debride on setting 8 and this was also done in a subcutaneous excisional manner to remove devitalized subcutaneous tissue, biofilm, slough, and fibrous tissue. Pressure was applied to maintain hemostasis. The pre-debridement measurement was 1.5 x 1.4 x 0.8 cm and the post debridement measurement was 2.2 x 2.2 x 0.9 cm. The base was now considered healthy and bleeding at this time and copious saline irrigation was performed. Next day clean curette was used to obtain a fresh culture and this was sent to microbiology as noted. Clean gloves and instrumentations were used at this time. The advanced wound healing product including amnio fill was applied according standard protocol and and this was further covered with epi-cord which was sutured in place to the adjacent skin. Overlying Adaptic was also applied as a wound veil and this was sutured in place. Brisk capillary refill time was noted to the digits and the vascular status to the foot remained consistent with his preoperative status. A dressing was applied at this time including 4 x 4 gauze, abdominal pads, Kerlix, and Angus wrap. After procedure: The patient tolerated the procedure and anesthesia well. He was transported to the PACU with vital signs stable and vascular status intact to the left lower extremity. He was advised to remain nonweightbearing to the left lower extremity and to elevate and for any postoperative pain. Is noted that he does have neuropathy and pain is not anticipated to a significant degree. He was advised to keep his dressing clean, dry, and intact. To follow-up at the wound healing center next Friday. I do not recommend antibiotics at this time. His cultures were taken due to devitalized appearance, delays in healing, and mild chronic odor. I will evaluate for any pathological bacteria that may be colonized in this wound contributing to his delays in healing. These results are pending. Postoperative orders were entered electronically. Rebecca Cifuentes DPM, [facility] - Admit VTE Documentation VTE Present on Admission: No VTE Mechan Device Prophylaxis: SCD's VTE Pharm Prophylaxis ordered?: Yes
--- NOTE | 2019-08-06 08:29 | DCINST_ITS ---
Discharge Diet: Carb Control Diet Discharge Activity: Use Crutches, - - use knee walker Weight Bearing Status: No weight bearing Keep extremity elevated above heart level: Left Leg Call your doctor if your incision/area has: Continuous Slow Oozing, Sudden Increased Bleeding, Increased Pain/ Swelling, Increased Redness, Foul Smelling Discharge, Swelling at the incision site Call your doctor if you observe: Fever of 101 or Higher, Shortness of breath, Dizziness, Swelling in the ankles, Chest pain, Calf discomfort, Uncontrolled pain Cleanse incision/area with: Keep Dressing Clean & Dry Allergies/Adverse Reactions: Allergies No Known Allergies Allergy (Verified 08/06/19 06:23) Medications to take at Discharge Aspirin [Aspirin, Baby] 81 mg PO DAILY@0800 07/03/15 Lovastatin [Mevacor] 20 mg PO DAILY 07/03/15 Multivit with Minerals/Lutein [Pub Multivitamin 50 Plus Tab] 1 ea PO DAILY 07/03/15 metFORMIN HCl [Glucophage] 1,000 mg PO DAILY 07/03/15 Lisinopril 20 mg PO DAILY 12/09/18 carvedilol 3.125 mg tablet 3.125 mg PO BID #60 tab 08/05/19 Primary Care Physician: Marcellus Moore MD [Primary Care Provider] - Test Results: Test results from this visit will be discussed in further detail at your follow- up appointment, if applicable. Please Follow Up With: Aris,Wound - next Fri08-11-2019 When: Call [phone] sooner if questions or concerns. Proposed Discharge Date: 08/06/19
== END 2019-08-06 09:13 | disposition home or self-care (01) ==
LOC: SDC 05:55 → AC 05:55
PROVIDERS: Family Provider Family Medicine; PCP Family Medicine; Referring Provider Podiatrist; Visit Provider Podiatrist
PROC: (CPT 15275; principal; 2019-08-06 07:15)
DX: E11.621 Type 2 diabetes mellitus with foot ulcer (principal); L97.522 Non-pressure chronic ulcer of other part of left foot with fat layer exposed; E11.42 Type 2 diabetes mellitus with diabetic polyneuropathy; E11.51 Type 2 diabetes mellitus with diabetic peripheral angiopathy without gangrene; I10 Essential (primary) hypertension; E78.00 Pure hypercholesterolemia, unspecified; E66.9 Obesity, unspecified; Z68.28 Body mass index [BMI] 28.0-28.9, adult; F12.90 Cannabis use, unspecified, uncomplicated; F10.20 Alcohol dependence, uncomplicated; Z79.84 Long term (current) use of oral hypoglycemic drugs; Z79.82 Long term (current) use of aspirin; Z79.899 Other long term (current) drug therapy; Z87.891 Personal history of nicotine dependence
CPT/HCPCS: 00400; 15275; 82962; 87015; 87070; 87075; 87077; 87102; 87116; 87176; 87186; 87205; 87206; J7120

== ENCOUNTER → 2019-08-16 14:03 | Outpatient (CLI) | payer MEDICARE, SELFPAY ==
[2019-08-16 14:03] VITALS: BMI 28.4
[2019-08-16 14:33] LABS: AST(SGOT) 12 U/L (15-37); Alanine Aminotransfer ALT/SGPT 21 U/L (16-61); Albumin, Serum 3.6 g/dL (3.2-5.0); Alkaline Phosphatase 70 U/L (45-117); Bilirubin, Direct 0.11 mg/dL (0.00-0.30); Cholesterol 192 mg/dL (200); Globulin 3.8 g/dL (2.2-4.2); High Density Lipoprotein 59 mg/dL; Protein, Total 7.4 g/dL (6.4-8.2); Triglycerides 132 mg/dL; Very Low Density Lipoprotein 26 mg/dL (5-40)
== END ==
PROVIDERS: PCP Family Medicine; Referring Provider Internal Medicine Cardiovascular Disease; Visit Provider Internal Medicine Cardiovascular Disease
DX: E11.42 Type 2 diabetes mellitus with diabetic polyneuropathy (principal); E78.5 Hyperlipidemia, unspecified; F10.20 Alcohol dependence, uncomplicated
CPT/HCPCS: 80061; 80076

== ENCOUNTER 2019-08-25 08:15 | Outpatient (RCR) | payer MEDICARE, SELFPAY ==
[2019-07-28 00:30] VITALS: BP 149/72; PULSE 79; RESP 18; TEMP 36.3
[2019-07-30 13:22] VITALS: BP 187/56; PULSE 89; RESP 18; TEMP 36.4; BMI 28.3
--- NOTE | 2019-07-30 14:33 | PCM.WC.PN ---
(1) Type 2 diabetes mellitus with diabetic polyneuropathy Status: Chronic Current Visit: Yes Code(s): E11.42 - Type 2 diabetes mellitus with diabetic polyneuropathy (2) PVD (peripheral vascular disease) Status: Chronic Current Visit: Yes Code(s): I73.9 - Peripheral vascular disease, unspecified (3) Chronic ulcer of left foot with fat layer exposed Status: Chronic Current Visit: Yes Code(s): L97.522 - Non-pressure chronic ulcer of other part of left foot with fat layer exposed (4) Delayed wound healing Status: Chronic Current Visit: Yes Code(s): T14.8XXD - Other injury of unspecified body region, subsequent encounter Type of Wound Date of Service: 07/30/19 Chief Complaint: Left heel ulcer History of Wound: This 74-year-old male with multiple comorbidities is seen today for left plantar heel ulcer. He had a history of neglected left Achilles tendon rupture that was treated conservatively. He denies fever, chill, nausea, vomiting. He did have previous claudication symptoms. He continues to remain nonweightbearing. He had vascular surgery intervention performed recently with Dr. Beck. He is with his neighbor today. He defers additional advanced treatment such as hyperbaric oxygen and additional surgical debridement on this site. He is unable to transport on his own without assistance. He is interested in proceeding with operating room debridement and advanced wound healing product application that is tentatively scheduled for August 06 at [facility]. He is also here today to complete his surgical consents. Progress of Wound: Stable - Physical Exam Vital Signs Temp Pulse Resp BP 97.5 F L 89 18 187/56 H 07/30/19 13:22 07/30/19 13:22 07/30/19 13:22 07/30/19 13:22 General: Alert, Oriented x3, Cooperative, No apparent distress Extremities: No cyanosis, Capillary Refill Less than 3 Seconds, No Calf Tenderness, Diminished Peripheral Pulses, Edema - Mild Skin: Ulcer/ Wound - No purulence, erythema, streaking, odor, or gross infection. No exposed bone or periosteum. The ulcer bed is granular and there is some fibrous tissue. There is a peripheral callus formation. His skin in general is atrophic and hairless to the limb Wound Measurements and Assessment WC - Nurse 1 - General Ulcer Measurement Start: 07/30/19 13:22 Freq: Status: Active Protocol: Activity Type Activity Date Activity User E-Sign Co-Sign Detail Recorded Client Recorded Date Recorded By Document 07/30/19 13:22 MW [id number] 07/30/19 13:31 MW 07/30/19 13:22 Wound Center Nurse 1 [Ulcer Assessment] #1 Left Heel -Combined with other wound No -Current Size (cm) - Length 1.5 -Current Size (cm) - Width 1.3 -Current Size (cm) - Depth 1.0 -Total Square Cm 1.95 -Photo Taken No -Epithelialization Small 1-33% -Tunneling No -Undermining/Tunneling No -Circular Undermining No -Exudate Amt Medium -Exudate Type Serosanguineous -Wound Margin Thickened -Granulation Amt None Present (0 %) -Granulation Quality N/A -Slough/Fibrin Yes -Necrosis Amt Large (67-100%) -Necrotic Tissue Type Adherent Slough -Structure Exposed N/A -Texture (Emily-wound Skin Appearance) Assessed, Scarring -Moisture (Emily-wound Skin Appearance Assessed, ) Maceration -Color (Emily-wound Skin Appearance) No Abnormality, Assessed -Temperature (Emily-wound Skin No Abnormality Appearance) (Pt Warm) -Tenderness on Palpation (Emily-wound Yes Skin Appearance) -Ulcer Cleansing Rinsed/ Irrigated with Saline -Foul Odor after Cleansing No -Anesthetic Used 4% Lidocaine Solution [Edema Assessment] -Lower Limb Edema Present No WC - Nurse 2 - General Ulcer CM Notes Start: 07/30/19 13:22 Freq: Status: Active Protocol: Activity Type Activity Date Activity User E-Sign Co-Sign Detail Recorded Client Recorded Date Recorded By Document 07/30/19 13:57 JF [id number] 07/30/19 13:59 JF 07/30/19 13:57 Wound Center Nurse 2 [Procedure/Treatment] #1 Left Heel -Time 13:58 -Correct Patient Yes -Correct Side, Site, Position Yes -Correct Procedure Yes -Procedure Performed Yes -Type of Procedure Debridement -Clinical Debridement Subcutaneous -Post Debridement Size (cm) - Length 1.5 -Post Debridement Size (cm) - Width 1.4 -Post Debridement Size (cm) - Depth 1.1 -Total Square Cm 2.10 -Wound/Ulcer Outcome Not Healed -Ulcer Cleansing Rinsed/ Irrigated with Saline -Foul Odor after Cleansing No -Bioengineered Tissue No -Bleeding Controlled with Pressure -Offloading Yes -Type of Offloading Knee Walker -Treatment Response Procedure Tolerated Well [See Physician Procedure note for Specifics] Pain Scale: 0-10 Numeric [Pain] -Is Patient Pain Free? Yes Musculoskeletal: No Tenderness to Palpation of Joints or Extremities, Muscle Wasting Neurological: - - Lack of normal epicritic sensation light touch consistent with neuropathy status Psych/Mental Status: Normal Affect, Appropriate Debridement Note Post-Debridement Measurements/Treatment WC - Nurse 2 - General Ulcer CM Notes Start: 07/30/19 13:22 Freq: Status: Active Protocol: Activity Type Activity Date Activity User E-Sign Co-Sign Detail Recorded Client Recorded Date Recorded By Document 07/30/19 13:57 JF [id number] 07/30/19 13:59 GAGE 07/30/19 13:57 Wound Center Nurse 2 #1 Left Heel -Time 13:58 -Correct Patient Yes -Correct Side, Site, Position Yes -Correct Procedure Yes -Procedure Performed Yes -Type of Procedure Debridement -Clinical Debridement Subcutaneous -Post Debridement Size (cm) - Length 1.5 -Post Debridement Size (cm) - Width 1.4 -Post Debridement Size (cm) - Depth 1.1 -Total Square Cm 2.10 -Wound/Ulcer Outcome Not Healed -Ulcer Cleansing Rinsed/ Irrigated with Saline -Foul Odor after Cleansing No -Bioengineered Tissue No -Bleeding Controlled with Pressure -Offloading Yes -Type of Offloading Knee Walker -Treatment Response Procedure Tolerated Well Pain Scale: 0-10 Numeric Is Patient Pain Free? Yes Wound debrided: plantar heel Laterality: Left Wound Grade/Stage: grade 3 Type of Debridement: Excisional debridement Anesthesia Used: 5% Lidocaine Gel Depth: in the subcutaneous layer Percentage of wound debrided: 100 Instrument Used: #15 blade Tissue Removed: fibrous, devitalized subcutaneous, biofilm, slough, callous Severity: Fat Layer Exposed Amount of bleeding with debridement: Mild Bleeding Controlled with: Pressure Patient tolerated procedure well Assessment/Plan Active Problems Type 2 diabetes mellitus with diabetic polyneuropathy (Chronic) PVD (peripheral vascular disease) (Chronic) Chronic ulcer of left foot with fat layer exposed (Chronic) Delayed wound healing (Chronic) Assessment: Left heel ulcer, no infection with previous grade 3 ulcer status with osteomyelitis. Left Achilles tendon rupture healed. Peripheral vascular disease. Diabetes with neuropathy. Malnutrition. Other comorbidities. Walking difficulty Plan: Patient was examined and evaluated today. I reviewed and discussed his case. Debridement was performed today as noted in the clinical panel and the indications and anticipated response to this was discussed in detail. He has clinical resolution of infection. His full course of advanced wound healing product, epi-cord was completed. He has benefited from this and this is medically necessary for limb salvage. At this time, I recommend that he changes the dressing daily with Joana. I also recommend return for operating room debridement application of both epi-cord and amnio fill; he is amendable to proceed at this time. due diligence coordinator nurse, Jeanmarie, will contact him to arrange his surgical date and clearance. He understands this is a staged comprehensive wound healing plan and he is still at risk for limb loss. To continue strict offloading by wearing a Cam walking boot and using a knee roller, crutches, a walker to keep weight off of the site. Compliance was discussed. He understands this will significantly impair his healing process and he is at risk for limb loss. To continue knee roller use at home to aid with compliance. It is noted he completed a course of antibiotics via PICC line. The preoperative indication, planned procedure, possible benefits, risk, complications, and anticipated healing time management were discussed in detail with the patient. He understands and elects to proceed with surgery at this time. No guarantees were made. Informed surgical consents were signed. I answered his questions. He understands risk and complications include but are not limited to the following: Pain, swelling, scarring, delayed or nonhealing, infection, need for further surgery, blood clot, allergic reaction, transfer callus or lesion, loss of limb, function, or life. This is a scheduled same-day surgical procedure and the anticipated anesthesia is MAC and local. He understands I will further need to review his clearance, preoperative history and physical exam, and preoperative diagnostic data prior to proceeding on August 06. It is noted his noninvasive vascular studies were abnormal again and he has had previous lower extremity ulcers with significant delayed healing. He saw Dr. Beck and angiogram was performed. I answered all of his questions.
[2019-08-11 08:39] VITALS: BP 135/79; PULSE 79; RESP 18; TEMP 36.3; BMI 28.3
--- NOTE | 2019-08-11 08:41 | WC ---
sutures and adapatic left in place. unable to measure wound todau
--- NOTE | 2019-08-11 11:10 | PCM.WC.PN ---
(1) Type 2 diabetes mellitus with diabetic polyneuropathy Status: Chronic Code(s): E11.42 - Type 2 diabetes mellitus with diabetic polyneuropathy (2) PVD (peripheral vascular disease) Status: Deleted Code(s): I73.9 - Peripheral vascular disease, unspecified (3) Chronic ulcer of left foot with fat layer exposed Status: Chronic Code(s): L97.522 - Non-pressure chronic ulcer of other part of left foot with fat layer exposed (4) Delayed wound healing Status: Chronic Code(s): T14.8XXD - Other injury of unspecified body region, subsequent encounter (5) MRSA (methicillin resistant staph aureus) culture positive Status: Acute Code(s): Z22.322 - Carrier or suspected carrier of Methicillin resistant Staphylococcus aureus Type of Wound Date of Service: 08/11/19 Chief Complaint: Left heel ulcer History of Wound: This 74-year-old male with multiple comorbidities is seen today for left plantar heel ulcer. He is status post Versajet operating room debridement with application of advanced wound healing product including amnio fill and epi cord performed last week. The surgery was performed on August 06, 2019. He continues to remain nonweightbearing. He had vascular surgery intervention performed recently with Dr. Beck. He is with his neighbor today. He defers additional advanced treatment such as hyperbaric oxygen and additional surgical debridement on this site. He is unable to transport on his own without assistance. He denies fever, chill, nausea, vomiting. Progress of Wound: Stable - Physical Exam Vital Signs Temp Pulse Resp BP 97.4 F L 79 18 135/79 H 08/11/19 08:39 08/11/19 08:39 08/11/19 08:39 08/11/19 08:39 General: Alert, Oriented x3, Cooperative, No apparent distress Extremities: Capillary Refill Less than 3 Seconds, No Calf Tenderness, Diminished Peripheral Pulses, Edema - Mild Skin: Ulcer/ Wound - No purulence, erythema, streaking, odor, necrosis. The eventually healing product is intact with overlying Adaptic and suture and appears to be partially incorporating. Wound Measurements and Assessment WC - Nurse 1 - General Ulcer Measurement Start: 07/30/19 13:22 Freq: Status: Active Protocol: Activity Type Activity Date Activity User E-Sign Co-Sign Detail Recorded Client Recorded Date Recorded By Document 08/11/19 08:39 RB [id number] 08/11/19 08:42 RB 08/11/19 08:39 Wound Center Nurse 1 [Ulcer Assessment] #1 Left Heel -Combined with other wound No -Exudate Amt Medium -Exudate Type Serosanguineous -Texture (Emily-wound Skin Appearance) Assessed -Moisture (Emily-wound Skin Appearance Assessed ) -Color (Emily-wound Skin Appearance) Assessed -Temperature (Emily-wound Skin No Abnormality Appearance) (Pt Warm) -Tenderness on Palpation (Emily-wound No Skin Appearance) -Foul Odor after Cleansing No [Edema Assessment] -Lower Limb Edema Present Yes -Left Calf (cm) 34 -Left Ankle (cm) 20.5 08/11/19 08:41 Wound Center by Olive Fajardo sutures and adapatic left in place. unable to measure wound todau Initialized on 08/11/19 08:41 - END OF NOTE WC - Nurse 2 - General Ulcer CM Notes Start: 07/30/19 13:22 Freq: Status: Active Protocol: Activity Type Activity Date Activity User E-Sign Co-Sign Detail Recorded Client Recorded Date Recorded By Document 08/11/19 08:53 [id number] 08/11/19 08:53 08/11/19 08:53 Wound Center Nurse 2 [Procedure/Treatment] #1 Left Heel -Correct Patient No -Correct Side, Site, Position No -Correct Procedure No -Procedure Performed No -Wound/Ulcer Outcome Not Healed [See Physician Procedure note for Specifics] Pain Scale: 0-10 Numeric [Pain] -Is Patient Pain Free? Yes Musculoskeletal: No Tenderness to Palpation of Joints or Extremities, Muscle Wasting Neurological: - - Lack of normal epicritic sensation consistent with neuropathy to light touch Psych/Mental Status: Normal Affect, Appropriate Debridement Note Post-Debridement Measurements/Treatment - Nurse 2 - General Ulcer CM Notes Start: 07/30/19 13:22 Freq: Status: Active Protocol: Activity Type Activity Date Activity User E-Sign Co-Sign Detail Recorded Client Recorded Date Recorded By Document 07/30/19 13:57 [id number] 07/30/19 13:59 Document 08/11/19 08:53 [id number] 08/11/19 08:53 07/30/19 08/11/19 13:57 08:53 Wound Center Nurse 2 #1 Left Heel -Time 13:58 -Correct Patient Yes No -Correct Side, Site, Position Yes No -Correct Procedure Yes No -Procedure Performed Yes No -Type of Procedure Debridement -Clinical Debridement Subcutaneous -Post Debridement Size (cm) - Length 1.5 -Post Debridement Size (cm) - Width 1.4 -Post Debridement Size (cm) - Depth 1.1 -Total Square Cm 2.10 -Wound/Ulcer Outcome Not Healed Not Healed -Ulcer Cleansing Rinsed/ Irrigated with Saline -Foul Odor after Cleansing No -Bioengineered Tissue No -Bleeding Controlled with Pressure -Offloading Yes -Type of Offloading Knee Walker -Treatment Response Procedure Tolerated Well Pain Scale: 0-10 Numeric Is Patient Pain Free? Yes Yes Wound debrided: plantar heel Laterality: Left Wound Grade/Stage: grade 3 Type of Debridement: Excisional debridement Anesthesia Used: 5% Lidocaine Gel Depth: in the subcutaneous layer Percentage of wound debrided: 100 Instrument Used: #15 blade Tissue Removed: fibrous, devitalized subcutaneous, biofilm, slough Severity: Fat Layer Exposed Amount of bleeding with debridement: Mild Bleeding Controlled with: Pressure Patient tolerated procedure well Assessment/Plan Assessment: Left heel ulcer, no infection with previous grade 3 ulcer status with osteomyelitis. Status post operating room Versajet debridement with application of advanced wound healing products including amnio fill epicardial form August 06, 2019. Left Achilles tendon rupture healed. Peripheral vascular disease. Diabetes with neuropathy. Malnutrition. Other comorbidities. Walking difficulty Plan: Patient was examined and evaluated today. I reviewed and discussed his case. His recent surgical site was evaluated I recommend he keeps a secondary dressing bolstered and intact. We will continue to let this incorporating well for 1-2 more weeks. To continue knee roller use at home to aid with compliance. Cultures were obtained after the debridement irrigation was performed and it is noted is gram-negative growth and MRSA. I recommend he takes oral ciprofloxacin and doxycycline to reduce any infection or contamination. This was already sent to [facility] pharmacy and he was advised to get started soon. It is noted there are no local or systemic signs of illness. He understands these are pathological bacteria that were identified and this needs to be addressed. It is noted his noninvasive vascular studies were abnormal again and he has had previous lower extremity ulcers with significant delayed healing. He saw Dr. Beck and angiogram was performed. I answered all of his questions. We also discussed the treatment option of hyperbaric oxygen therapy because he does have a grade 3 ulcer and prior diagnosis of osteomyelitis. He is not able to come to the wound care center on a daily basis and is not ready to commit to this process. The indications, planned application, anticipated healing time management and benefits and complications were discussed. Answers questions. To return to the wound healing center 1 week or call sooner if you have any questions or concerns.
[2019-08-18 08:53] VITALS: BP 163/94; PULSE 69; RESP 18; TEMP 36.8; BMI 28.3
--- NOTE | 2019-08-18 09:41 | PCM.WC.PN ---
(1) Type 2 diabetes mellitus with diabetic polyneuropathy Status: Chronic Code(s): E11.42 - Type 2 diabetes mellitus with diabetic polyneuropathy (2) PVD (peripheral vascular disease) Status: Chronic Code(s): I73.9 - Peripheral vascular disease, unspecified (3) Chronic ulcer of left foot with fat layer exposed Status: Chronic Code(s): L97.522 - Non-pressure chronic ulcer of other part of left foot with fat layer exposed (4) Delayed wound healing Status: Chronic Code(s): T14.8XXD - Other injury of unspecified body region, subsequent encounter (5) MRSA (methicillin resistant staph aureus) culture positive Status: Acute Code(s): Z22.322 - Carrier or suspected carrier of Methicillin resistant Staphylococcus aureus Type of Wound Date of Service: 08/18/19 Chief Complaint: Left heel ulcer History of Wound: This 74-year-old male with multiple comorbidities is seen today for left plantar heel ulcer. He is status post Versajet operating room debridement with application of advanced wound healing product including amnio fill and epi cord performed last week. The surgery was performed on August 06, 2019. He continues to remain nonweightbearing. He had vascular surgery intervention performed recently with Dr. Beck. He is with his neighbor today. He defers additional advanced treatment such as hyperbaric oxygen. He is unable to transport on his own without assistance. He is currently ambulating with the assistance of a knee scooter. He denies fever, chill, nausea, vomiting, loss of appetite, or diarrhea. He is completed a 5-day course of doxycycline and ciprofloxacin. Progress of Wound: Stable - Physical Exam Vital Signs Temp Pulse Resp BP 98.2 F 69 18 163/94 H 08/18/19 08:53 08/18/19 08:53 08/18/19 08:53 08/18/19 08:53 General: Alert, Oriented x3, Cooperative, No apparent distress Extremities: No cyanosis, No edema, No Calf Tenderness Skin: Ulcer/ Wound - Hyperkeratotic rim noted about wound. No purulence, erythema, or drainage noted. Wound Measurements and Assessment WC - Nurse 1 - General Ulcer Measurement Start: 07/30/19 13:22 Freq: Status: Active Protocol: Activity Type Activity Date Activity User E-Sign Co-Sign Detail Recorded Client Recorded Date Recorded By Document 08/18/19 08:53 [id number] 08/18/19 09:02 DV 08/18/19 08:53 Wound Center Nurse 1 [Ulcer Assessment] #1 Left Heel -Combined with other wound No -Current Size (cm) - Length 0.1 -Current Size (cm) - Width 0.1 -Current Size (cm) - Depth 0.1 -Total Square Cm 0.01 -Date of Last Picture (Recall this 08/18/19 field) -Photo Taken Yes -Epithelialization None Present -Tunneling No -Undermining/Tunneling No -Circular Undermining No -Classification - Thickness Full Thickness without Exposed Support Structure WC - Nurse 2 - General Ulcer CM Notes Start: 07/30/19 13:22 Freq: Status: Active Protocol: Activity Type Activity Date Activity User E-Sign Co-Sign Detail Recorded Client Recorded Date Recorded By Document 08/18/19 09:14 GAGE [id number] 08/18/19 09:18 GAGE 08/18/19 09:14 Wound Center Nurse 2 [Procedure/Treatment] -Time 09:15 -Correct Patient Yes -Correct Side, Site, Position Yes -Correct Procedure Yes -Procedure Performed Yes -Type of Procedure Debridement -Clinical Debridement Subcutaneous -Post Debridement Size (cm) - Length 2.0 -Post Debridement Size (cm) - Width 1.7 -Post Debridement Size (cm) - Depth 1.2 -Total Square Cm 3.40 -Wound/Ulcer Outcome Not Healed -Ulcer Cleansing Rinsed/ Irrigated with Saline -Foul Odor after Cleansing No -Bioengineered Tissue No -Bleeding Controlled with Pressure -Offloading Yes -Type of Offloading Knee Walker -Treatment Response Procedure Tolerated Well [See Physician Procedure note for Specifics] Pain Scale: 0-10 Numeric [Pain] -Is Patient Pain Free? Yes Musculoskeletal: No Tenderness to Palpation of Joints or Extremities, Muscle Wasting Neurological: - - diminished epicritic sensation Psych/Mental Status: Normal Affect, Appropriate Debridement Note Post-Debridement Measurements/Treatment - Nurse 2 - General Ulcer CM Notes Start: 07/30/19 13:22 Freq: Status: Active Protocol: Activity Type Activity Date Activity User E-Sign Co-Sign Detail Recorded Client Recorded Date Recorded By Document 07/30/19 13:57 GAGE [id number] 07/30/19 13:59 Document 08/11/19 08:53 GAGE [id number] 08/11/19 08:53 JF Document 08/18/19 09:14 [id number] 08/18/19 09:18 07/30/19 08/11/19 08/18/19 13:57 08:53 09:14 Wound Center Nurse 2 #1 Left Heel -Time 13:58 09:15 -Correct Patient Yes No Yes -Correct Side, Site, Position Yes No Yes -Correct Procedure Yes No Yes -Procedure Performed Yes No Yes -Type of Procedure Debridement Debridement -Clinical Debridement Subcutaneous Subcutaneous -Post Debridement Size (cm) - Length 1.5 2.0 -Post Debridement Size (cm) - Width 1.4 1.7 -Post Debridement Size (cm) - Depth 1.1 1.2 -Total Square Cm 2.10 3.40 -Wound/Ulcer Outcome Not Healed Not Healed Not Healed -Ulcer Cleansing Rinsed/ Rinsed/ Irrigated with Irrigated with Saline Saline -Foul Odor after Cleansing No No -Bioengineered Tissue No No -Bleeding Controlled with Pressure Pressure -Offloading Yes Yes -Type of Offloading Knee Walker Knee Walker -Treatment Response Procedure Procedure Tolerated Well Tolerated Well Pain Scale: 0-10 Numeric Is Patient Pain Free? Yes Yes Yes Wound debrided: plantar heel Laterality: Left Type of Debridement: Excisional debridement Anesthesia Used: 5% Lidocaine Gel Depth: in the subcutaneous layer Percentage of wound debrided: 100 Instrument Used: #15 blade Tissue Removed: fibrous, devitalized subcutaneous, biofilm, slough Severity: Fat Layer Exposed Amount of bleeding with debridement: None Bleeding Controlled with: Pressure Patient tolerated procedure well Hyperkeratotic tissue debrided. Devitalized tissue debrided to include nonviable fibrous tissue and slough. Assessment/Plan Assessment: Left heel ulcer, current bacterial contamination with multiple organisms with previous grade 3 ulcer status with osteomyelitis. Status post operating room Versajet debridement with application of advanced wound healing products including amnio fill epicardial form August 06, 2019. Left Achilles tendon rupture healed. Peripheral vascular disease. Diabetes with neuropathy. Malnutrition. Other comorbidities. Walking difficulty Plan: Patient was examined and evaluated today. I reviewed and discussed his case. His recent surgical site was evaluated. The advance wound healing product has partially incorporated in however there is still exposed deep tissue. Hyperkeratotic tissue debrided. Subcutaneous excisional debridement was performed as noted in the clinical panel. Recent culture findings discussed with patient. To continue knee roller use at home to aid with compliance. Cultures were obtained after the previous debridement irrigation was performed and it is noted MRSA, E. coli, corynebacterium, and others. I recommend he takes oral ciprofloxacin and doxycycline to reduce any infection or contamination. A refill was provided today. This prescription was dispensed at time of appointment. It is noted there are no local or systemic signs of illness. He understands these are pathological bacteria that were identified and this needs to be addressed. I also recommend that he changes the dressing daily with [employer] and also cleanse the site with Hibiclens antimicrobial medical grade soap. It is noted his noninvasive vascular studies were abnormal again and he has had previous lower extremity ulcers with significant delayed healing. He saw Dr. Beck and angiogram was performed. I answered all of his questions. We also discussed the treatment option of hyperbaric oxygen therapy because he does have a grade 3 ulcer and prior diagnosis of osteomyelitis. He is not able to come to the wound care center on a daily basis and is not ready to commit to this process. The indications, planned application, anticipated healing time management and benefits and complications were discussed. I answered his questions. This patient is frustrated with the delayed healing and asked about additional treatment options to allow him to be more mobile or semi-mobile. We reviewed additional offloading including the potential left lower extremity patellar tendon weightbearing device. This would not completely offload the ulcer I do not recommend this at this time however this is an option. He also understands he is at risk for losing his limb including a below-knee amputation in which she would further be progressing to a prosthetic device which in one regard would allow ambulation. We also discussed transitioning him to a palliative care program. He recently had surgical intervention and advanced wound product applied and would like to give that a little bit more time especially because we are dressing is bacterial contamination. He is understanding the wound care plan would like to proceed at this time. To return to the wound healing center 1 week or call sooner if you have any questions or concerns. 2019 [facility] entry-. Reviewed today: He denies pain and his follow-up plan has been established. His medication allergy profile has been reconciled. Reviewed August 18, 2019: He is having a current smoking status and cessation intervention was advised. His blood pressure is 163/94 which is elevated. I recommend he follows up with his primary care physician due to associated risk factors. He is advised to maintain appropriate activity and diet as well. He does have an advanced care plan on file. His pneumococcal influenza immunization status was also reviewed.
[2019-08-25 08:13] VITALS: BP 154/84; PULSE 74; RESP 18; TEMP 36.4; BMI 28.3
--- NOTE | 2019-08-25 14:02 | PCM.WC.PN ---
(1) Chronic ulcer of left foot with fat layer exposed Status: Chronic Current Visit: Yes Code(s): L97.522 - Non-pressure chronic ulcer of other part of left foot with fat layer exposed (2) Type 2 diabetes mellitus with diabetic polyneuropathy Status: Chronic Current Visit: Yes Code(s): E11.42 - Type 2 diabetes mellitus with diabetic polyneuropathy (3) PVD (peripheral vascular disease) Status: Chronic Current Visit: Yes Code(s): I73.9 - Peripheral vascular disease, unspecified (4) Delayed wound healing Status: Chronic Current Visit: Yes Code(s): T14.8XXD - Other injury of unspecified body region, subsequent encounter (5) MRSA (methicillin resistant staph aureus) culture positive Status: Acute Current Visit: Yes Code(s): Z22.322 - Carrier or suspected carrier of Methicillin resistant Staphylococcus aureus Type of Wound Date of Service: 08/25/19 Chief Complaint: Left heel ulcer History of Wound: This 74-year-old male with multiple comorbidities is seen today for left plantar heel ulcer. He is status post Versajet operating room debridement with application of advanced wound healing product including amnio fill and epi cord performed last week. The surgery was performed on August 06, 2019. He continues to remain nonweightbearing. He had vascular surgery intervention performed recently with Dr. Beck. He is with his neighbor today. He defers additional advanced treatment such as hyperbaric oxygen. He is unable to transport on his own without assistance. He is currently ambulating with the assistance of a knee scooter. He denies fever, chill, nausea, vomiting, loss of appetite, or diarrhea. He is completed a course of doxycycline and ciprofloxacin. Progress of Wound: improving - Physical Exam Vital Signs Temp Pulse Resp BP 97.6 F L 74 18 154/84 H 08/25/19 08:13 08/25/19 08:13 08/25/19 08:13 08/25/19 08:13 General: Alert, Oriented x3, Cooperative, No apparent distress Extremities: No cyanosis, Capillary Refill Less than 3 Seconds, No Calf Tenderness, Diminished Peripheral Pulses, Edema Skin: Ulcer/ Wound - No purulence, erythema, streaking, odor, infection. This is granulation tissue noted at the distal aspect. There is no longer any exposed bone Wound Measurements and Assessment WC - Nurse 1 - General Ulcer Measurement Start: 07/30/19 13:22 Freq: Status: Active Protocol: Activity Type Activity Date Activity User E-Sign Co-Sign Detail Recorded Client Recorded Date Recorded By Document 08/25/19 08:13 JF [id number] 08/25/19 08:21 08/25/19 08:13 Wound Center Nurse 1 [Ulcer Assessment] #1 Left Heel -Combined with other wound No -Current Size (cm) - Length 1.8 -Current Size (cm) - Width 1.1 -Current Size (cm) - Depth 0.7 -Total Square Cm 1.98 -Photo Taken No -Epithelialization Small 1-33% -Tunneling No -Undermining/Tunneling No -Circular Undermining No -Exudate Amt Medium -Exudate Type Serosanguineous -Wound Margin Flat & Intact -Granulation Amt Medium (34-66%) -Granulation Quality Red -Slough/Fibrin Yes -Necrosis Amt Small (1-33%) -Necrotic Tissue Type Adherent Slough -Structure Exposed N/A -Texture (Emily-wound Skin Appearance) Assessed,Callus -Moisture (Emily-wound Skin Appearance Assessed,Dry/ ) Scaly -Color (Emily-wound Skin Appearance) Assessed -Temperature (Emily-wound Skin No Abnormality Appearance) (Pt Warm) -Tenderness on Palpation (Emily-wound No Skin Appearance) -Ulcer Cleansing Rinsed/ Irrigated with Saline -Foul Odor after Cleansing No -Anesthetic Used 5% Lidocaine Gel [Edema Assessment] -Lower Limb Edema Present Yes -Left Calf (cm) 33.7 -Left Ankle (cm) 21.0 WC - Nurse 2 - General Ulcer CM Notes Start: 07/30/19 13:22 Freq: Status: Active Protocol: Activity Type Activity Date Activity User E-Sign Co-Sign Detail Recorded Client Recorded Date Recorded By Document 08/25/19 08:35 JF [id number] 08/25/19 08:38 08/25/19 08:35 Wound Center Nurse 2 [Procedure/Treatment] #1 Left Heel -Time 08:35 -Correct Patient Yes -Correct Side, Site, Position Yes -Correct Procedure Yes -Procedure Performed Yes -Type of Procedure Debridement -Clinical Debridement Subcutaneous -Post Debridement Size (cm) - Length 1.8 -Post Debridement Size (cm) - Width 1.2 -Post Debridement Size (cm) - Depth 0.7 -Total Square Cm 2.16 -Wound/Ulcer Outcome Not Healed -Ulcer Cleansing Rinsed/ Irrigated with Saline -Foul Odor after Cleansing No -Bioengineered Tissue No -Bleeding Controlled with Pressure -Offloading Yes -Type of Offloading Knee Walker -Treatment Response Procedure Tolerated Well [See Physician Procedure note for Specifics] Pain Scale: 0-10 Numeric [Pain] -Is Patient Pain Free? Yes Musculoskeletal: No Tenderness to Palpation of Joints or Extremities, Muscle Wasting Neurological: - - Lack of epicritic sensation light touch is consistent with neuropathy status Psych/Mental Status: Normal Affect, Appropriate Debridement Note Post-Debridement Measurements/Treatment WC - Nurse 2 - General Ulcer CM Notes Start: 07/30/19 13:22 Freq: Status: Active Protocol: Activity Type Activity Date Activity User E-Sign Co-Sign Detail Recorded Client Recorded Date Recorded By Document 07/30/19 13:57 [id number] 07/30/19 13:59 Document 08/11/19 08:53 [id number] 08/11/19 08:53 Document 08/18/19 09:14 [id number] 08/18/19 09:18 Document 08/25/19 08:35 [id number] 08/25/19 08:38 07/30/19 08/11/19 08/18/19 13:57 08:53 09:14 Wound Center Nurse 2 #1 Left Heel -Time 13:58 09:15 -Correct Patient Yes No Yes -Correct Side, Site, Position Yes No Yes -Correct Procedure Yes No Yes -Procedure Performed Yes No Yes -Type of Procedure Debridement Debridement -Clinical Debridement Subcutaneous Subcutaneous -Post Debridement Size (cm) - Length 1.5 2.0 -Post Debridement Size (cm) - Width 1.4 1.7 -Post Debridement Size (cm) - Depth 1.1 1.2 -Total Square Cm 2.10 3.40 -Wound/Ulcer Outcome Not Healed Not Healed Not Healed -Ulcer Cleansing Rinsed/ Rinsed/ Irrigated with Irrigated with Saline Saline -Foul Odor after Cleansing No No -Bioengineered Tissue No No -Bleeding Controlled with Pressure Pressure -Offloading Yes Yes -Type of Offloading Knee Walker Knee Walker -Treatment Response Procedure Procedure Tolerated Well Tolerated Well Pain Scale: 0-10 Numeric Is Patient Pain Free? Yes Yes Yes 08/25/19 08:35 Wound Center Nurse 2 #1 Left Heel -Time 08:35 -Correct Patient Yes -Correct Side, Site, Position Yes -Correct Procedure Yes -Procedure Performed Yes -Type of Procedure Debridement -Clinical Debridement Subcutaneous -Post Debridement Size (cm) - Length 1.8 -Post Debridement Size (cm) - Width 1.2 -Post Debridement Size (cm) - Depth 0.7 -Total Square Cm 2.16 -Wound/Ulcer Outcome Not Healed -Ulcer Cleansing Rinsed/ Irrigated with Saline -Foul Odor after Cleansing No -Bioengineered Tissue No -Bleeding Controlled with Pressure -Offloading Yes -Type of Offloading Knee Walker -Treatment Response Procedure Tolerated Well Pain Scale: 0-10 Numeric Is Patient Pain Free? Yes Wound debrided: plantar heel Laterality: Left Wound Grade/Stage: grade 3 Type of Debridement: Excisional debridement Anesthesia Used: 5% Lidocaine Gel Depth: in the subcutaneous layer Percentage of wound debrided: 100 Instrument Used: #15 blade Tissue Removed: fibrous, devitalized subcutaneous, biofilm, slough Severity: Fat Layer Exposed Amount of bleeding with debridement: Mild Bleeding Controlled with: Pressure Patient tolerated procedure well Assessment/Plan Active Problems (Last Reviewed 08/03/19 @ 13:14 by Steffi Mcintosh) PVD (peripheral vascular disease) (Chronic) MRSA (methicillin resistant staph aureus) culture positive (Acute) Type 2 diabetes mellitus with diabetic polyneuropathy (Chronic) Chronic ulcer of left foot with fat layer exposed (Chronic) Delayed wound healing (Chronic) Assessment: Left heel ulcer, current bacterial contamination with multiple organisms with previous grade 3 ulcer status with osteomyelitis. Status post operating room Versajet debridement with application of advanced wound healing products including amnio fill epicardial form August 06, 2019. Left Achilles tendon rupture healed. Peripheral vascular disease. Diabetes with neuropathy. Malnutrition. Other comorbidities. Walking difficulty Plan: Patient was examined and evaluated today. I reviewed and discussed his case. His recent surgical site was evaluated. The advance wound healing product has partially incorporated in however there is still exposed deep tissue. Hyperkeratotic tissue debrided. Subcutaneous excisional debridement was performed as noted in the clinical panel. Recent culture findings discussed with patient. To continue knee roller use at home to aid with compliance. Cultures were obtained after the previous debridement irrigation was performed and it is noted MRSA, E. coli, corynebacterium, and others. I recommend he takes oral ciprofloxacin and doxycycline to reduce any infection or contamination. A refill was provided today. This prescription was dispensed at time of appointment. It is noted there are no local or systemic signs of illness. He understands these are pathological bacteria that were identified and this needs to be addressed. I also recommend that he changes the dressing daily with [employer] and also cleanse the site with Hibiclens antimicrobial medical grade soap. This is been improving in quality and with suspected reduction of bioburden. If this continues to look better next week I recommend application of advanced wound healing product. He was approved for this last year. An additional prior authorization will be submitted for the new . This is medically necessary for limb salvage. The advanced product I recommend is epi-fix. The indications, benefits, anticipated healing time and management were reviewed. It is noted his noninvasive vascular studies were abnormal again and he has had previous lower extremity ulcers with significant delayed healing. He saw Dr. Beck and angiogram was performed. I answered all of his questions. We also discussed the treatment option of hyperbaric oxygen therapy because he does have a grade 3 ulcer and prior diagnosis of osteomyelitis. He is not able to come to the wound care center on a daily basis and is not ready to commit to this process. The indications, planned application, anticipated healing time management and benefits and complications were discussed. I answered his questions. This patient is frustrated with the delayed healing and asked about additional treatment options to allow him to be more mobile or semi-mobile. We reviewed additional offloading including the potential left lower extremity patellar tendon weightbearing device. This would not completely offload the ulcer I do not recommend this at this time however this is an option. He also understands he is at risk for losing his limb including a below-knee amputation in which she would further be progressing to a prosthetic device which in one regard would allow ambulation. We also discussed transitioning him to a palliative care program. He recently had surgical intervention and advanced wound product applied and would like to give that a little bit more time especially because we are dressing is bacterial contamination. He is understanding the wound care plan would like to proceed at this time. To return to the wound healing center 1 week or call sooner if you have any questions or concerns. 2019 [facility] entry-. Reviewed today: He denies pain and his follow-up plan has been established. His medication allergy profile has been reconciled. Reviewed August 18, 2019: He is having a current smoking status and cessation intervention was advised. His blood pressure is 163/94 which is elevated. I recommend he follows up with his primary care physician due to associated risk factors. He is advised to maintain appropriate activity and diet as well. He does have an advanced care plan on file. His pneumococcal influenza immunization status was also reviewed.
== END 2019-08-27 23:59 ==
LOC: WC 08:15
PROVIDERS: Family Provider Family Medicine; PCP Family Medicine; Referring Provider Podiatrist; Visit Provider Podiatrist
DX: E11.621 Type 2 diabetes mellitus with foot ulcer (principal); E11.42 Type 2 diabetes mellitus with diabetic polyneuropathy; E11.51 Type 2 diabetes mellitus with diabetic peripheral angiopathy without gangrene; L97.422 Non-pressure chronic ulcer of left heel and midfoot with fat layer exposed; R26.2 Difficulty in walking, not elsewhere classified
CPT/HCPCS: 11042; 99213; G0463

== ENCOUNTER 2019-09-14 20:38 | Inpatient (IN) | payer MEDICARE, SELFPAY ==
[2019-09-08 08:34] VITALS: BMI 28.4
[2019-09-14 20:39] VITALS: BP 209/96; PULSE 70; RESP 19; TEMP 37.1; O2SAT 100; BMI 28.5
[2019-09-14] MEDS: Dicyclomine 20 MG/2 ML Vial IM (21:14)
[2019-09-14] MEDS: 0.9% Normal Saline 1,000 ML 1000 ML IV (21:14)
[2019-09-14 21:15] VITALS: BP 192/86; PULSE 60; RESP 12; O2SAT 98
--- NOTE | 2019-09-14 21:17 | ED.RN ---
pharmacist called and this RN explained that she gave Bentyl IV instead of as ordered IM. pharmacist checked adverse reactions and led nurse to clinical pharmacology tab on intranet. information was printed and given to Dr. Pelayo. Pharmacist and Physician recommend monitoring pt. pt on heart monitor, oxygen monitor and BP monitor. will continue to check IV site and pt for adverse reactions. none noted at this time.
[2019-09-14 21:23] LABS: Basophil# 0.03 X10^3/uL; Basophil% 0.5 % (0-1); Eosinophil# 0.04 X10^3/uL; Eosinophils% 0.6 % (0-5); Hemoglobin 13.3 g/dL (13.0-16.5); Mean Corp Hgb Conc 34.1 g/dL (32-36); Mean Corpuscular Hgb 30.2 pg (27.0-32.0); Mean Corpuscular Volume 88.4 fL (80-94); Mean Platelet Vol. 9.7 fl (6.2-12.0); NRBC Flagged by Analyzer 0 % (0-5); Neutrophil # 3.96 X10^3/uL (2.7-7.7); Neutrophil % 59.4 % (47-70); Platelet Count 210 K/mm3 (150-450); RBC Distribution Width CV 12.8 % (11.6-14.6); RBC Distribution Width SD 41.5 fl (35.1-43.9); Red Blood Count 4.41 M/mm3 (4.6-6.2); White Blood Count 6.7 K/mm3 (4.4-11.0)
[2019-09-14 21:34] LABS: ALB/GLOB Ratio 0.9 RATIO (0.9-2.4); AST(SGOT) 15 U/L (15-37); Alanine Aminotransfer ALT/SGPT 19 U/L (16-61); Albumin, Serum 3.5 g/dL (3.2-5.0); Alkaline Phosphatase 66 U/L (45-117); Anion Gap 8 (5-15); BUN 10 mg/dL (7-18); BUN/Creat Ratio 10.1 RATIO (10-20); Calcium,Total 9.3 mg/dL (8.5-10.1); Chloride 103 mmol/L (98-107); Creatinine, Serum 0.99 mg/dL (0.70-1.30); EST Glomerular Filtration Rate 79 mL/min (>60); Est Glom Filt Rate - Afr Amer 96 mL/min (>60); Estimated Creatinine Clearance 71.84 ml/min; Glucose 240 mg/dL (74-106); Potassium 3.3 mmol/L (3.5-5.1); Protein, Total 7.5 g/dL (6.4-8.2); Sodium Level 136 mmol/L (136-145)
[2019-09-14] MEDS: proMETHazine 25 MG/ML Syringe 12.5 MG IV (21:40)
[2019-09-14 21:42] VITALS: BP 185/87; PULSE 60; RESP 11; TEMP 36.7; O2SAT 98
[2019-09-14 22:00] VITALS: BP 175/89; PULSE 65; RESP 12; TEMP 36.6; O2SAT 98
[2019-09-14 22:14] LABS: Lactic Acid 2.7 mmol/L (0.4-1.9)
[2019-09-14 23:00] VITALS: BP 151/82; PULSE 82; RESP 22; TEMP 36.7; O2SAT 96
--- NOTE | 2019-09-14 23:11 | ED.DCSUM_ITS ---
- ER Visit Summary Date of Service: 09/14/19 Chief Complaint: [Vomiting and diarrhea] History of Present Illness: The patient is a 74 M [presents to the emergency department with symptoms that started 2 days ago. Patient states that he initially started with vomiting and dry heaves as well as diarrhea at the same time. Patient states that he had severe diarrhea the first day and yesterday felt better during the day but in the evening the diarrhea picked up again. Patient denies any blood in his stool or black tarry stools. He denies any significant abdominal discomfort although has intermittent cramping. Patient has history of a left foot wound for which he was on antibiotics several weeks ago. Patient denies any fevers at home. He denies sick contacts. Patient just feels very weak and has no energy. Patient has history of diabetes, hypertension, high cholesterol, and peripheral vascular disease.] Physical Examination: [HEENT-PERRLA, EOMI. Cranial nerves II through XII grossly intact. TMs clear. Mucous membranes moist. No adenopathy. Cardiovascular-regular rate and rhythm without murmur or ectopy Lungs-clear to auscultation, chest wall stable without crepitus or subcu emphysema Abdomen-normoactive bowel sounds, soft, nontender, no rebound or rigidity, no peritoneal signs. Extremities-intact ?4, normal range of motion, normal pulses, atraumatic] Test Results: [CBC with differential obtained showed a white count 6.7, hemoglob in 13, hematocrit 39, platelets 210. Chemistries unremarkable. LFTs were unremarkable. Lactate was elevated 2.7] stool was sent for enteric pathogens and C. difficile. Emergency Department Course and Treatment: [He was given a liter mostly fluid bolus. Patient was ordered Bentyl 20 mg IM.] Treatment Plan: [Admit for hydration] Disposition: [Admit] Impression: [Diarrhea-results pending Generalized weakness Lactic acidosis] This note was generated with [employer] dictation software. It may contain incorrect words, spelling, and punctuation that were not noted in review of the chart prior to signing ED Disposition - Plan for ED Patient: Referrals: Marcellus Moore MD [Primary Care Provider] -
--- NOTE | 2019-09-14 23:20 | HP.PCM_ITS ---
Problem List (1) Gastroenteritis Status: Acute (2) PVD (peripheral vascular disease) Status: Chronic (3) Hypertension Status: Chronic (4) Hyperlipidemia Status: Chronic (5) Peripheral vascular disease Status: Chronic (6) Type 2 diabetes mellitus with diabetic polyneuropathy Status: Chronic (7) EtOH dependence Status: Chronic (8) Marijuana abuse, continuous Status: Chronic (9) Ulcer of left heel Status: Chronic (10) Walking difficulty due to ankle and foot Status: Chronic (11) Osteomyelitis Status: Chronic Qualifiers: (12) Chronic ulcer of left foot with fat layer exposed Status: Chronic (13) Type 2 diabetes mellitus with diabetic polyneuropathy Status: Chronic (14) Achilles rupture, left Status: Chronic Qualifiers: (15) Delayed wound healing Status: Chronic (16) Malnutrition Status: Chronic (17) Obesity (BMI 30.0-34.9) Status: Chronic History of Present Illness Date of Admission: 09/14/19 Chief Complaint: Nausea, vomiting and diarrhea The patient is a 74 year old M with a significant history of diabetes mellitus; alcoholism; legal blindness and chronic diabetic wound who presented to emergency department with nausea, vomiting and diarrhea. His symptoms started 2 days before presentation. Associated with some generalized abdominal pain. Patient found to have lactic acidosis emergency department. Also he had hypokalemia. Abdomen and pelvis CT showed pancolitis and punctate nonobstructing right renal calculus. Patient reported as he was on antibiotic about 3 weeks ago after a surgical procedure on his right foot. Patient goes to the wound care center and sees Dr. Cifuentes. Past Medical History Past Medical History (Chronic Problems): Chronic Problems (Last Reviewed 09/15/19 @ 02:58 by Td Bronson MD) PVD (peripheral vascular disease) (Chronic) Hypertension (Chronic) Hyperlipidemia (Chronic) Peripheral vascular disease (Chronic) Type 2 diabetes mellitus with diabetic polyneuropathy (Chronic) EtOH dependence (Chronic) Marijuana abuse, continuous (Chronic) Ulcer of left heel (Chronic) Walking difficulty due to ankle and foot (Chronic) Osteomyelitis (Chronic) Chronic ulcer of left foot with fat layer exposed (Chronic) Type 2 diabetes mellitus with diabetic polyneuropathy (Chronic) Achilles rupture, left (Chronic) Delayed wound healing (Chronic) Malnutrition (Chronic) Obesity (BMI 30.0-34.9) (Chronic) Medical History: Medical History (Last Reviewed 02/19/20 @ 08:55 by Td Bronson MD) PVD (peripheral vascular disease) (Chronic) I73.9 Pre-op evaluation (Inactive) Z01.818 Acute electrocardiogram changes (Inactive) R94.31 Hypertension (Chronic) I10 Hyperlipidemia (Chronic) E78.5 Peripheral vascular disease (Chronic) I73.9 Type 2 diabetes mellitus with diabetic polyneuropathy (Chronic) E11.42 EtOH dependence (Chronic) F10.20 Marijuana abuse, continuous (Chronic) F12.10 Ulcer of left heel (Chronic) L97.429 Walking difficulty due to ankle and foot (Chronic) R26.2 Chronic ulcer of left foot with fat layer exposed (Chronic) L97.522 Type 2 diabetes mellitus with diabetic polyneuropathy (Chronic) E11.42 Achilles rupture, left (Chronic) S86.012A Delayed wound healing (Chronic) T14.8XXD Malnutrition (Chronic) E46 Obesity (BMI 30.0-34.9) (Chronic) E66.9 Cellulitis of left foot L03.116 Cellulitis of left foot L03.116 Osteomyelitis of left foot M86.9 Allergies No Known Allergies Allergy (Verified 09/14/19 20:39) Home Medications: Ambulatory Orders Medication Instructions Recorded Aspirin [Aspirin, Baby] 81 mg PO DAILY@0800 07/03/15 Lovastatin [Mevacor] 20 mg PO DAILY 07/03/15 Multivit with Minerals/Lutein [Pub 1 ea PO DAILY 07/03/15 Multivitamin 50 Plus Tab] metFORMIN HCl [Glucophage] 1,000 mg PO DAILY 07/03/15 Lisinopril 20 mg PO DAILY 12/09/18 carvedilol 3.125 mg tablet 3.125 mg PO BID #60 tab 08/05/19 Surgical History: Surgical History (Last Reviewed 09/15/19 @ 02:58 by Td Bronson MD) Amputated toe of right foot Onset Date: ~2015 S98.131A History of appendectomy Z90.49 age 7 Surgical History: appendectomy Psychiatric History: No pertinent psych hx Smoking Status: Former smoker Tobacco Use: Cigars - *Family History Maternal Family History: Family History (Last Reviewed 09/15/19 @ 08:55 by Td Bronson MD) Father CAD (coronary artery disease) S/P CABG (coronary artery bypass graft) Mother Leukemia Brother Heart disease History Items: Diabetes, - Paternal Family History: Family History (Last Reviewed 09/15/19 @ 08:55 by Td Bronson MD) Father CAD (coronary artery disease) S/P CABG (coronary artery bypass graft) Mother Leukemia Brother Heart disease History Items: Heart Disease Review of Systems Constitutional: Denies: Chills, Fever, Weight Change HEENT: Denies: Head Aches, Sinus Congestion, Sinus Drainage Cardiovascular: Denies: Chest Pain, Palpitations Respiratory: Denies: Cough, Shortness of breath at rest, Sputum production Gastrointestinal: Reports: Abdominal Pain, Diarrhea, Nausea, Vomiting Genitourinary: Denies: Dysuria Musculoskeletal: Denies: Joint Pain, Joint Tenderness Skin: Reports: Wounds - Left heel. Denies: Rash Neurological: Denies: Numbness, Tingling, Focal weakness Psychiatric: Denies: Anxiety, Depression, Homicidal Ideations, Suicidal Ideation s Hematologic/ Lymphatic: Denies: Easy Bruising, Easy Bleeding VTE Information - Inpt Only VTE Present on Admission: No VTE Mechan Device Prophylaxis: None VTE Pharm Prophylaxis ordered?: Yes Patient Problems: Active and Suspected Problems (Last Reviewed 09/15/19 @ 02:58 by Td Bronson MD) Gastroenteritis (Acute) - Physical Exam Vitals/I&O's: Vital Signs Temp Pulse Resp BP Pulse Ox 98 F 65 12 175/89 H 98 09/14/19 22:00 09/14/19 22:00 09/14/19 22:00 09/14/19 22:00 09/14/19 22:00 Oxygen Delivery Method Room Air Weight: 92.7 kg Body Mass Index (BMI) 28.5 General: Alert, Oriented x3, Cooperative HEENT: Atraumatic, PERRLA, EOMI, Normocephalic Neck: Supple, No JVD, Negative Carotid Bruits Lungs: Clear to auscultation, Normal air movement Cardiovascular: Regular rate, No murmurs Abdomen: Bowel Sounds Present, Soft, Non Tender, Hyperactive Bowel Sounds Extremities: No edema, Capillary Refill Less than 3 Seconds Skin: Ulcer/ Wound - Left heel Musculoskeletal: No Tenderness to Palpation of Joints or Extremities Neurological: Cranial nerves II-XII grossly intact Psych/Mental Status: Normal Affect, Appropriate Laboratory Results 09/14/19 20:45: WBC 6.7, RBC 4.41 L, Hgb 13.3, Hct 39.0 L, MCV 88.4, MCH 30.2, MCHC 34.1, RDW Std Deviation 41.5, RDW Coeff of Doris 12.8, Plt Count 210, MPV 9.7, Immature Gran % (Auto) 0.500, Neut % (Auto) 59.4, Lymph % (Auto) 24.0, [place] % (Auto) 15.0 H, Eos % (Auto) 0.6, Baso % (Auto) 0.5, Absolute Neuts (auto) 4.0, Absolute Lymphs (auto) 1.60, Nucleated RBC % 0 09/14/19 20:45: Sodium 136, Potassium 3.3 L, Chloride 103, Carbon Dioxide 25.0, Anion Gap 8, BUN 10, Creatinine 0.99, Estim Creat Clear Calc 71.84, Est GFR (MDRD) Af Amer 96, Est GFR (MDRD) Non-Af 79, BUN/Creatinine Ratio 10.1, Glucose 240 H, Calcium 9.3, Total Bilirubin 0.50, AST 15, ALT 19, Alkaline Phosphatase 66, Total Protein 7.5, Albumin 3.5, Globulin 4.0, Albumin/Globulin Ratio 0.9 09/14/19 21:30: Lactic Acid 2.7 H* Current Medications Sodium Chloride () 1,000 mls @ 150 mls/hr IV .Q6H40M [facility] Assessment/Plan All Active Problems (Last Reviewed 09/15/19 @ 02:58 by Td Bronson MD) Gastroenteritis (Acute) The patient is a 74 year old M with a significant history of diabetes mellitus; alcoholism; legal blindness and chronic diabetic wound who presented to emergency department with nausea, vomiting and diarrhea; abdominal pain and found to have pancolitis on CT consistent with acute gastroenteritis with colitis. Acute gastroenteritis and colitis C. difficile is negative. Enteropathogenic panel is pending. Patient with no fever or leukocytosis. Lactic acidosis could be due to dehydration. Likely viral. We will hold off antibiotic this time. If enteric pathogen panel is positive consider starting patient on antibiotics. Supportive treatment with IV fluids; and antiemetics; and PRN pain medicine. Diabetes mellitus with neuropathy and hyperglycemia Of note patient reports little blindness secondary to diabetes. Hold home metformin that could contribute to lactic acidosis Accu-Cheks with correction scale insulin. Lisinopril continued. Clear liquid diet. Left foot wound Wet-to-dry dressing on the foot recommendation for wound care. Hypertension Presentation blood pressure was not within goal. Lisinopril continued. Trend blood pressure and adjust blood pressure medications. Alcoholism Patient drinks about 8 bottles of beer per day. Last time he drank was about 4 days ago. Unlikely the patient will withdrawal. Clinical monitoring. DVT prophylaxis Subcutaneous Lovenox. Code Visit OBSV E&M: 11961 Initial observation care L3
[2019-09-14] MEDS: 0.9% Normal Saline 1,000 ML 150 ML IV (23:49)
--- NOTE | 2019-09-15 00:26 | ED.RN ---
PER DR GALVAN, PT IS TO WAIT FOR CT RESULT PRIOR TO GOING TO FLOOR
[2019-09-15 00:46] VITALS: BP 150/95; PULSE 77; RESP 17; O2SAT 99
--- NOTE | 2019-09-15 01:00 | CT_ITS ---
HISTORY: ABD PAIN/DIARRHEA. Hx of diabetes, HTN and PVD ADDITIONAL HISTORY: None provided. TECHNIQUE: CT images were obtained of the abdomen and pelvis with 100 mL Isovue-300 IV contrast. Enteric contrast was given. A radiation dose optimization technique was used for this scan. Number of images including paperwork: [id number] COMPARISON: None FINDINGS: LOWER THORAX: No consolidation or pleural effusion. Mild basilar atelectasis. Trace pericardial fluid. LIVER: No concerning focal lesion. GALLBLADDER: No radiopaque calculi. BILE DUCTS: No significant biliary dilatation. SPLEEN: Unremarkable. PANCREAS: Unremarkable. ADRENAL GLANDS: Unremarkable. KIDNEYS/URETERS: Punctate nonobstructing right renal calculus. No ureteral calculus or hydronephrosis. BOWEL: No bowel obstruction. Mild to moderate wall thickening of the colon with mild surrounding stranding. APPENDIX: No evidence of appendicitis. FREE FLUID: No significant free fluid. FREE AIR: None. LYMPH NODES: No pathologic appearing adenopathy. PERITONEUM, RETROPERITONEUM AND MESENTERY: Otherwise unremarkable. VASCULATURE: Atherosclerotic calcification. PELVIS: Unremarkable bladder. ABDOMINAL WALL: Unremarkable. OSSEOUS AND SOFT TISSUE STRUCTURES: No acute skeletal findings. Degenerative changes. CT/Abdomen/Pelvis WITH Contrast IMPRESSION: Pancolitis, most likely to be infectious or inflammatory in nature. Punctate nonobstructing right renal calculus. Individualized dose optimization techniques were used for this CT. at 0223 Reported and signed by: Martha Warner MD Electronically Signed: Martha Warner MD at 2:23 EST Tel , Service support ,
[2019-09-15 01:41] LABS: Reflex Lactate? Y
[2019-09-15 02:00] VITALS: BP 155/85; PULSE 81; RESP 13; TEMP 36.9; O2SAT 98
[2019-09-15 03:00] VITALS: BMI 27.7
[2019-09-15 03:13] LABS: Lactic Acid 1.2 mmol/L (0.4-1.9)
[2019-09-15 03:31] VITALS: BP 156/92; PULSE 79; RESP 16; TEMP 36.8; O2SAT 100
[2019-09-15] MEDS: Potassium Chloride 40 MEQ in 0.9% Normal Saline 1,000 ML 100 MEQ IV ×2 (04:29→14:35)
[2019-09-15] MEDS: Insulin Lispro 100 UNIT/ML INSULN.PEN SC ×3 (04:29→21:29)
[2019-09-15 04:46] LABS: Bedside Glucose 176 mg/dL (70-110)
[2019-09-15 06:12] LABS: Absolute Lymphocyte Count 1.89 X10^3/uL (0.83-4.51); Absolute Neutrophil Count 4.6 X10^3/uL (2.0-7.7); Basophil# 0.04 X10^3/uL; Basophil% 0.5 % (0-1); Eosinophil# 0.05 X10^3/uL; Eosinophils% 0.6 % (0-5); Hematocrit 36.3 % (40-54); Hemoglobin 12.5 g/dL (13.0-16.5); Lymphocyte # 1.89 X10^3/ul (4.0); Mean Corp Hgb Conc 34.4 g/dL (32-36); Mean Corpuscular Hgb 31.1 pg (27.0-32.0); Mean Corpuscular Volume 90.3 fL (80-94); Mean Platelet Vol. 9.6 fl (6.2-12.0); Monocyte# 1.21 X10^3/uL; Monocyte% 15.3 % (0-10); NRBC Flagged by Analyzer 0 % (0-5); Neutrophil # 4.64 X10^3/uL (2.7-7.7); Neutrophil % 58.8 % (47-70); Platelet Count 202 K/mm3 (150-450); RBC Distribution Width CV 12.6 % (11.6-14.6); RBC Distribution Width SD 41.4 fl (35.1-43.9); Red Blood Count 4.02 M/mm3 (4.6-6.2); White Blood Count 7.9 K/mm3 (4.4-11.0)
[2019-09-15 06:46] LABS: Bedside Glucose 110 mg/dL (70-110)
[2019-09-15 06:52] LABS: Anion Gap 5 (5-15); BUN 8 mg/dL (7-18); BUN/Creat Ratio 10.1 RATIO (10-20); Calcium,Total 8.7 mg/dL (8.5-10.1); Chloride 107 mmol/L (98-107); Creatinine, Serum 0.79 mg/dL (0.70-1.30); EST Glomerular Filtration Rate 102 mL/min (>60); Est Glom Filt Rate - Afr Amer 124 mL/min (>60); Estimated Creatinine Clearance 71.12 ml/min; Glucose 152 mg/dL (74-106); Magnesium 1.7 mg/dL (1.6-2.6); Potassium 3.2 mmol/L (3.5-5.1); Sodium Level 138 mmol/L (136-145)
--- NOTE | 2019-09-15 07:44 | PN_ITS ---
Patient Problems: Active and Suspected Problems (Last Reviewed 09/15/19 @ 08:55 by Td Bronson MD) Gastroenteritis (Acute) Reason for Visit: Acute gastroenteritis with diarrhea every 2 hours. Objective: Patient had diarrhea started on Friday which was 2-3 and then he felt better. Then he started vomiting and diarrhea for last 2 days, yesterday he was going to bathroom every 2 hours, fecal incontinence but no blood. He denies abdominal pain but mild cramps while having diarrhea. No fever or chills. Denies flulike symptoms including cough cold or sore throat. Patient was on antibiotic doxycycline 100 mg twice daily and Cipro 500 mg twice daily from August 11 to August 25. C. difficile was done came out negative. Vitals/I&O's: Vital Signs Temp Pulse Resp BP Pulse Ox 98.2 F 79 16 156/92 H 100 09/15/19 03:31 09/15/19 03:31 09/15/19 03:31 09/15/19 03:31 09/15/19 03:31 Oxygen Delivery Method Room Air Weight: 198 lb 13.711 oz Body Mass Index (BMI) 27.7 Intake and Output for Last 24 Hours 09/13/19 09/14/19 09/15/19 23:59 23:59 23:59 Intake Total 1000 / 1000 1000 / 1000 Balance 1000 / 1000 1000 / 1000 General: Alert, Oriented x3, Cooperative HEENT: Atraumatic, PERRLA, EOMI, Normocephalic Oral: No Gingival or Mucosal Lesions/ Ulcerations, Dry Mucosa Neck: Supple, No JVD, Negative Carotid Bruits Lungs: Clear to auscultation, No rhonchi, No wheeze, No rales, Diminished Cardiovascular: Regular rate, Regular Rhythm, Normal S1, Normal S2, No murmurs Abdomen: Bowel Sounds Present, Soft, Non Tender, Non-Distended, Hypoactive Bowel Sounds Extremities: No edema, Capillary Refill Less than 3 Seconds Skin: Ulcer/ Wound - Ulcer on the left heel, deep muscle level with chronic thickened, uneven margin. Floor is covered with relation tissue. Musculoskeletal: No Tenderness to Palpation of Joints or Extremities, Arthritic Changes Neurological: Cranial nerves II-XII grossly intact, Deep Tendon Reflexes 2+/4 and Symmetrical, Neuro grossly intact Psych/Mental Status: Normal Affect, Appropriate Microbiology Past 72 Hours 09/14/19 22:45 Stool C. difficile DNA Amplification - Final Laboratory Results 09/14/19 20:45: WBC 6.7, RBC 4.41 L, Hgb 13.3, Hct 39.0 L, MCV 88.4, MCH 30.2, MCHC 34.1, RDW Std Deviation 41.5, RDW Coeff of Doris 12.8, Plt Count 210, MPV 9.7, Immature Gran % (Auto) 0.500, Neut % (Auto) 59.4, Lymph % (Auto) 24.0, Early % (Auto) 15.0 H, Eos % (Auto) 0.6, Baso % (Auto) 0.5, Absolute Neuts (auto) 4.0, Absolute Lymphs (auto) 1.60, Nucleated RBC % 0 09/14/19 20:45: Sodium 136, Potassium 3.3 L, Chloride 103, Carbon Dioxide 25.0, Anion Gap 8, BUN 10, Creatinine 0.99, Estim Creat Clear Calc 71.84, Est GFR (MDRD) Af Amer 96, Est GFR (MDRD) Non-Af 79, BUN/Creatinine Ratio 10.1, Glucose 240 H, Calcium 9.3, Total Bilirubin 0.50, AST 15, ALT 19, Alkaline Phosphatase 66, Total Protein 7.5, Albumin 3.5, Globulin 4.0, Albumin/Globulin Ratio 0.9 09/14/19 21:30: Lactic Acid 2.7 H* 09/15/19 02:44: Lactic Acid 1.2 09/15/19 04:27: POC Glucose 176 H 09/15/19 05:42: WBC 7.9, RBC 4.02 L, Hgb 12.5 L, Hct 36.3 L, MCV 90.3, MCH 31.1, MCHC 34.4, RDW Std Deviation 41.4, RDW Coeff of Doris 12.6, Plt Count 202, MPV 9.6, Immature Gran % (Auto) 0.800, Neut % (Auto) 58.8, Lymph % (Auto) 24.0, Early % (Auto) 15.3 H, Eos % (Auto) 0.6, Baso % (Auto) 0.5, Absolute Neuts (auto) 4.6, Absolute Lymphs (auto) 1.89, Nucleated RBC % 0 09/15/19 05:42: Sodium 138, Potassium 3.2 L, Chloride 107, Carbon Dioxide 26.0, Anion Gap 5, BUN 8, Creatinine 0.79, Estim Creat Clear Calc 71.12, Est GFR (MDRD) Af Amer 124, Est GFR (MDRD) Non-Af 102, BUN/Creatinine Ratio 10.1, Glucose 152 H, Calcium 8.7, Magnesium 1.7 09/15/19 06:39: POC Glucose 110 Current Medications Aspirin (Aspirin, Baby) 81 mg PO DAILY@0800 [facility] Atorvastatin Calcium (Lipitor) 5 mg PO QHS [facility] Carvedilol (Coreg) 3.125 mg PO BID [facility] Dicyclomine HCl (Bentyl) 10 mg PO Q8H PRN PRN PRN Reason: abdominal pain Enoxaparin Sodium (Lovenox) 40 mg SC DAILY [facility] Glucagon () 1 mg IM .X1 PRN PRN Reason: Hypoglycemia Potassium Chloride 40 meq/ (Sodium Chloride) 1,020 mls @ 100 mls/hr IV .[id number] [facility] Last Admin: 09/15/19 04:29 Dose: 100 mls/hr Documented by: Dextrose (Dextrose 10%-Water) 250 mls @ 999 mls/hr IV .Q16M PRN; Protocol PRN Reason: HYPOGLYCEMIA Insulin Human Lispro (Humalog Kwikpen (Bkc)) 0 unit SC ACHS [facility]; Protocol Last Admin: 09/15/19 06:44 Dose: Not Given Documented by: Lisinopril (Zestril) 20 mg PO DAILY [facility] Melatonin (Melatonin) 3 mg PO QHS PRN PRN PRN Reason: INSOMNIA Multivitamins/Minerals (Multivitamin With Minerals (Bkc)) 1 tablet PO DAILY@0800 [facility] Nutritional Formula (Lactose Free) (Glucerna Shake) 120 ml PO TIDCM [facility] Ondansetron HCl (Zofran) 4 mg IV Q8H PRN PRN PRN Reason: NAUSEA/VOMITING Sodium Chloride () 10 - 40 ml IV UD PRN PRN Reason: SALINE FLUSH Medical Necessity - Tobacco Use Smoking Status: Former smoker Tobacco Use: Cigars Assessment/Plan All Active Problems (Last Reviewed 09/15/19 @ 08:55 by Td Bronson MD) Gastroenteritis (Acute) The patient is a 74 year old M with a significant history of diabetes mellitus; alcoholism; legal blindness and chronic diabetic wound who presented to emergency department with nausea, vomiting and diarrhea; abdominal pain and found to have pancolitis on CT consistent with acute gastroenteritis with colitis. 1. Acute gastroenteritis and colitis secondary to Campylobacter enterocolitis: Patient admitted on [facility]. CT imaging independently reviewed and suggestive of mild to moderate wall thickening of colon with surrounding stranding suggestive of pancolitis. Punctate nonobstructing right renal calculus. Stool for occult blood and WBC positive. Stool for C. difficile negative. Enteric bacteriology panel positive Campylobacter species. As patient does not have high fever, bloody stool, prolonged more than 1 week symptoms or immunocompromised host, therefore antibiotic is not indicated. For severe Campylobacter infection, macrolide therapy is preferred. Patient is also discussed possible post Campylobacter infection complications including IBS, reactive arthritis and Guillain-Holly? syndrome and follow-up PCP as an outpatient. Supportive treatment with IV fluids; and antiemetics; and PRN pain medicine. 2. Diabetes mellitus with complicated with peripheral neuropathy, uncontrolled hyperglycemia, retinopathy with legal blindness, and chronic nonhealing diabetic foot ulcer. Neuropathy and hyperglycemia Hold home metformin that could contribute to lactic acidosis Accu-Cheks with correction scale insulin. Lisinopril continued. 3. Left heel ulcer, chronic nonhealing with history of osteomyelitis. Patient had MRI in November 2018 which showed osteomyelitis of the calcaneus. Partial tear entered in addition of Achilles tendon with atrophy of the abductor digiti minimi muscle. Patient follows wound care center with Dr. Leal. Discussed with her. Consult requested. 4. Hypertension: Blood pressure is not controlled. 156/92. Most recent 138/85. 5. Chronic alcohol use disorder along with mild hypokalemia hypophosphatemia: Patient drinks about 8 bottles of beer per day. Last time he drank was about 4 days ago. CIWA monitoring. On Ativan as needed as per CIWA scale. Potassium replaced. Repeat potassium 3.8. Magnesium 1.7. Phosphorus 2.4. On thiamine, folic acid and multivitamin. DVT prophylaxis Subcutaneous Lovenox. Total time of the visit including total time spent in counseling or coordination of care, (more than 50% of the total time, spent in obtaining medical information from nurses and other ancillary care providers), care of coordination with homemaking rehabilitation consultant, certified nursing assistant instructor, discussion with patient and his friend at the bedside, review of labs and imaging is 30 minutes Clinical Impression(s) from Imaging Studies Abdomen/Pelvis CT 09/15/19 01:00 IMPRESSION: Pancolitis, most likely to be infectious or inflammatory in nature. Punctate nonobstructing right renal calculus. Individualized dose optimization techniques were used for this CT. Microbiology Past 72 Hours 09/14/19 22:45 Stool C. difficile DNA Amplification - Final Laboratory Results 09/14/19 20:45: WBC 6.7, RBC 4.41 L, Hgb 13.3, Hct 39.0 L, MCV 88.4, MCH 30.2, MCHC 34.1, RDW Std Deviation 41.5, RDW Coeff of Doris 12.8, Plt Count 210, MPV 9.7, Immature Gran % (Auto) 0.500, Neut % (Auto) 59.4, Lymph % (Auto) 24.0, Early % (Auto) 15.0 H, Eos % (Auto) 0.6, Baso % (Auto) 0.5, Absolute Neuts (auto) 4.0, Absolute Lymphs (auto) 1.60, Nucleated RBC % 0 09/14/19 20:45: Sodium 136, Potassium 3.3 L, Chloride 103, Carbon Dioxide 25.0, Anion Gap 8, BUN 10, Creatinine 0.99, Estim Creat Clear Calc 71.84, Est GFR (MDRD) Af Amer 96, Est GFR (MDRD) Non-Af 79, BUN/Creatinine Ratio 10.1, Glucose 240 H, Calcium 9.3, Total Bilirubin 0.50, AST 15, ALT 19, Alkaline Phosphatase 66, Total Protein 7.5, Albumin 3.5, Globulin 4.0, Albumin/Globulin Ratio 0.9 09/14/19 21:30: Lactic Acid 2.7 H* 09/15/19 02:44: Lactic Acid 1.2 09/15/19 04:27: POC Glucose 176 H 09/15/19 05:42: WBC 7.9, RBC 4.02 L, Hgb 12.5 L, Hct 36.3 L, MCV 90.3, MCH 31.1, MCHC 34.4, RDW Std Deviation 41.4, RDW Coeff of Doris 12.6, Plt Count 202, MPV 9.6, Immature Gran % (Auto) 0.800, Neut % (Auto) 58.8, Lymph % (Auto) 24.0, Early % (Auto) 15.3 H, Eos % (Auto) 0.6, Baso % (Auto) 0.5, Absolute Neuts (auto) 4.6, Absolute Lymphs (auto) 1.89, Nucleated RBC % 0 09/15/19 05:42: Sodium 138, Potassium 3.2 L, Chloride 107, Carbon Dioxide 26.0, Anion Gap 5, BUN 8, Creatinine 0.79, Estim Creat Clear Calc 71.12, Est GFR (MDRD) Af Amer 124, Est GFR (MDRD) Non-Af 102, BUN/Creatinine Ratio 10.1, Glucose 152 H, Calcium 8.7, Magnesium 1.7 09/15/19 06:39: POC Glucose 110 Code Visit Inpatient E&M: 65952 Subs Hosp L3
[2019-09-15 08:18] LABS: Phosphorus 2.4 mg/dL (2.5-4.9)
[2019-09-15 08:33] VITALS: BP 138/85; PULSE 80; RESP 16; TEMP 37.5; O2SAT 100
[2019-09-15] MEDS: Multivitamins,Ther W-Minerals Tablet 1 TABLET PO (08:37)
[2019-09-15] MEDS: Aspirin 81 MG TAB.CHEW PO (08:37)
[2019-09-15] MEDS: Carvedilol 3.125 MG TABLET PO ×2 (08:38→21:30)
[2019-09-15] MEDS: Lisinopril 20 MG Tablet PO (08:38)
[2019-09-15] MEDS: Enoxaparin 40 MG/0.4 ML Syringe SC (08:38)
[2019-09-15 12:17] LABS: Potassium 3.8 mmol/L (3.5-5.1)
[2019-09-15] MEDS: Glucerna Shake 120 ML LIQUID PO ×2 (12:20→17:22)
[2019-09-15 12:26] LABS: Bedside Glucose 139 mg/dL (70-110)
--- NOTE | 2019-09-15 14:24 | NURSING ---
wound photo: left heel
[2019-09-15 14:30] VITALS: BP 138/75; PULSE 79; RESP 18; TEMP 36.9; O2SAT 99
[2019-09-15] MEDS: Na Biphos/Potassium Phosphate PACKET 1 PACKET PO ×2 (17:22→21:37)
[2019-09-15] MEDS: Thiamine Hydrochloride 100 MG Tablet PO (17:22)
[2019-09-15 17:35] LABS: Bedside Glucose 204 mg/dL (70-110)
--- NOTE | 2019-09-15 18:07 | CON.PCM_ITS ---
Reason for Consult Date of Consultation: 09/15/19 Reason for Consultation: Wound left heel History of Present Illness: The patient is a 74 year old male who was admitted with acute gastroenteritis and colitis secondary to Campylobacter enterocolitis, who also has a chronic left heel ulceration. He follows with Dr. Cifuentes at the wound center, he was suppose to see Dr. Cifuentes today at wound center, but was not able to because he is here in hospital. Podiatry was consulted for continuity of care of this ulceration. He relates recently the wound has been getting better. He relates he has been staying off of foot and using knee walker. He has no pain, and no new pedal complaints. 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, left (Chronic) Delayed wound healing (Chronic) Malnutrition (Chronic) Obesity (BMI 30.0-34.9) (Chronic) Medical History: Medical History (Last Reviewed 09/15/19 @ 08:55 by Td Bronson MD) PVD (peripheral vascular disease) (Chronic) I73.9 Pre-op evaluation (Inactive) Z01.818 Acute electrocardiogram changes (Inactive) R94.31 Hypertension (Chronic) I10 Hyperlipidemia (Chronic) E78.5 Peripheral vascular disease (Chronic) I73.9 Type 2 diabetes mellitus with diabetic polyneuropathy (Chronic) E11.42 EtOH dependence (Chronic) F10.20 Marijuana abuse, continuous (Chronic) F12.10 Ulcer of left heel (Chronic) L97.429 Walking difficulty due to ankle and foot (Chronic) R26.2 Chronic ulcer of left foot with fat layer exposed (Chronic) L97.522 Type 2 diabetes mellitus with diabetic polyneuropathy (Chronic) E11.42 Achilles rupture, left (Chronic) S86.012A Delayed wound healing (Chronic) T14.8XXD Malnutrition (Chronic) E46 Obesity (BMI 30.0-34.9) (Chronic) E66.9 Cellulitis of left foot L03.116 Cellulitis of left foot L03.116 Osteomyelitis of left foot M86.9 Allergies No Known Allergies Allergy (Verified 09/14/19 20:39) Home Medications: Ambulatory Orders Medication Instructions Recorded Aspirin [Aspirin, Baby] 81 mg PO DAILY@0800 07/03/15 Lovastatin [Mevacor] 20 mg PO DAILY 07/03/15 Multivit with Minerals/Lutein [Pub 1 ea PO DAILY 07/03/15 Multivitamin 50 Plus Tab] metFORMIN HCl [Glucophage] 1,000 mg PO DAILY 07/03/15 Lisinopril 20 mg PO DAILY 12/09/18 carvedilol 3.125 mg tablet 3.125 mg PO BID #60 tab 08/05/19 Surgical History: Surgical History (Last Reviewed 09/15/19 @ 02:58 by Td Bronson MD) Amputated toe of right foot Onset Date: ~2015 S98.131A History of appendectomy Z90.49 age 7 Surgical History: appendectomy Psychiatric History: No pertinent psych hx Smoking Status: Former smoker Tobacco Use: Cigars - *Family History Maternal Family History: Family History (Last Reviewed 09/15/19 @ 08:55 by Td Bronson MD) Father CAD (coronary artery disease) S/P CABG (coronary artery bypass graft) Mother Leukemia Brother Heart disease History Items: Diabetes, - Paternal Family History: Family History (Last Reviewed 09/15/19 @ 08:55 by Td Bronson MD) Father CAD (coronary artery disease) S/P CABG (coronary artery bypass graft) Mother Leukemia Brother Heart disease History Items: Heart Disease Review of Systems Constitutional: Denies: Chills, Fever Gastrointestinal: Denies: Nausea, Vomiting Patient Problems: Active and Suspected Problems (Last Reviewed 09/15/19 @ 08:55 by Td Bronson MD) Gastroenteritis (Acute) - Physical Exam Vitals/I&O's: Vital Signs Temp Pulse Resp BP Pulse Ox 98.4 F 79 18 138/75 H 99 09/15/19 14:30 09/15/19 14:30 09/15/19 14:30 09/15/19 14:30 09/15/19 14:30 Oxygen Delivery Method Room Air Weight: 90.2 kg Body Mass Index (BMI) 27.7 Intake and Output for Last 24 Hours 09/13/19 09/14/19 09/15/19 23:59 23:59 23:59 Intake Total 1000 / 1000 2606.67 / 2606.67 Balance 1000 / 1000 2606.67 / 2606.67 General: Alert, Oriented x3, Cooperative, No apparent distress Extremities: Capillary Refill Less than 3 Seconds, No Calf Tenderness, - - Round ulceration plantar left heel, measures 1.4cm x 1.5cm and down to deep subcutaneous tissue layer, base and margins granular, there is some superficial nonviable tissue to the margins, there is no cellulitis, no maloder, no necrosis, no fluctuance, no edema, no evidence of infection present, no undermining present. No other open lesions bilateral foot/ankle. Peripheral neuropathy is present to the lower extremity. No POP or pain on ROM to the foot/ankle bilateral. Right 4th toe is short c/w previous infection/surgery. Musculoskeletal: No Tenderness to Palpation of Joints or Extremities - to the foot/ankle bilateral. Psych/Mental Status: Appropriate, Alert and oriented to time, place, person, mood and affect Microbiology Past 72 Hours 09/14/19 22:45 Stool Stool Occult Blood (PARTH) - Final Occult Blood Positive 09/14/19 22:45 Stool Stool Lactoferrin - Final 09/14/19 22:45 Stool Enteric Bacteriology - Final Campylobacter species 09/14/19 22:45 Stool C. difficile DNA Amplification - Final Laboratory Results 09/14/19 20:45: WBC 6.7, RBC 4.41 L, Hgb 13.3, Hct 39.0 L, MCV 88.4, MCH 30.2, MCHC 34.1, RDW Std Deviation 41.5, RDW Coeff of Doris 12.8, Plt Count 210, MPV 9.7, Immature Gran % (Auto) 0.500, Neut % (Auto) 59.4, Lymph % (Auto) 24.0, [place]cock % (Auto) 15.0 H, Eos % (Auto) 0.6, Baso % (Auto) 0.5, Absolute Neuts (auto) 4.0, Absolute Lymphs (auto) 1.60, Nucleated RBC % 0 09/14/19 20:45: Sodium 136, Potassium 3.3 L, Chloride 103, Carbon Dioxide 25.0, Anion Gap 8, BUN 10, Creatinine 0.99, Estim Creat Clear Calc 71.84, Est GFR (MDRD) Af Amer 96, Est GFR (MDRD) Non-Af 79, BUN/Creatinine Ratio 10.1, Glucose 240 H, Calcium 9.3, Total Bilirubin 0.50, AST 15, ALT 19, Alkaline Phosphatase 66, Total Protein 7.5, Albumin 3.5, Globulin 4.0, Albumin/Globulin Ratio 0.9 09/14/19 21:30: Lactic Acid 2.7 H* 09/15/19 02:44: Lactic Acid 1.2 09/15/19 04:27: POC Glucose 176 H 09/15/19 05:42: WBC 7.9, RBC 4.02 L, Hgb 12.5 L, Hct 36.3 L, MCV 90.3, MCH 31.1, MCHC 34.4, RDW Std Deviation 41.4, RDW Coeff of Doris 12.6, Plt Count 202, MPV 9.6, Immature Gran % (Auto) 0.800, Neut % (Auto) 58.8, Lymph % (Auto) 24.0, Glasscock % (Auto) 15.3 H, Eos % (Auto) 0.6, Baso % (Auto) 0.5, Absolute Neuts (auto) 4.6, Absolute Lymphs (auto) 1.89, Nucleated RBC % 0 09/15/19 05:42: Sodium 138, Potassium 3.2 L, Chloride 107, Carbon Dioxide 26.0, Anion Gap 5, BUN 8, Creatinine 0.79, Estim Creat Clear Calc 71.12, Est GFR (MDRD) Af Amer 124, Est GFR (MDRD) Non-Af 102, BUN/Creatinine Ratio 10.1, Glucose 152 H, Calcium 8.7, Magnesium 1.7 09/15/19 05:42: Phosphorus 2.4 L 09/15/19 06:39: POC Glucose 110 09/15/19 11:55: Potassium 3.8 09/15/19 12:13: POC Glucose 139 H 09/15/19 17:19: POC Glucose 204 H Current Medications Aspirin (Aspirin, Baby) 81 mg PO DAILY@0800 [facility] Last Admin: 09/15/19 08:37 Dose: 81 mg Documented by: Atorvastatin Calcium (Lipitor) 5 mg PO QHS [facility] Carvedilol (Coreg) 3.125 mg PO BID [facility] Last Admin: 09/15/19 08:38 Dose: 3.125 mg Documented by: Diazepam (Valium) 5 mg PO Q24H PRN PRN Reason: Agitation Dicyclomine HCl (Bentyl) 10 mg PO Q8H PRN PRN PRN Reason: abdominal pain Enoxaparin Sodium (Lovenox) 40 mg SC DAILY [facility] Last Admin: 09/15/19 08:38 Dose: 40 mg Documented by: Glucagon () 1 mg IM .X1 PRN PRN Reason: Hypoglycemia Potassium Chloride 40 meq/ (Sodium Chloride) 1,020 mls @ 100 mls/hr IV .[id number] [facility] Last Admin: 09/15/19 14:35 Dose: 100 mls/hr Documented by: Dextrose (Dextrose 10%-Water) 250 mls @ 999 mls/hr IV .Q16M PRN; Protocol PRN Reason: HYPOGLYCEMIA Insulin Human Lispro (Humalog Kwikpen (Bkc)) 0 unit SC [facility]; Protocol Last Admin: 09/15/19 17:29 Dose: 4 units Documented by: Lisinopril (Zestril) 20 mg PO DAILY [facility] Last Admin: 09/15/19 08:38 Dose: 20 mg Documented by: Lorazepam (Ativan) 2 mg PO Q2H PRN PRN; Protocol PRN Reason: CIWA score > 8 but <15 Lorazepam (Ativan) 2 mg PO UD PRN; Protocol PRN Reason: CIWA score >/=15. Lorazepam (Ativan) 2 mg IV Q2H PRN PRN; Protocol PRN Reason: CIWA score > 8 but <15 Lorazepam (Ativan) 2 mg IV UD PRN; Protocol PRN Reason: CIWA score >/=15. Melatonin (Melatonin) 3 mg PO QHS PRN PRN PRN Reason: INSOMNIA Multivitamins/Minerals (Multivitamin With Minerals (Bkc)) 1 tablet PO DAILY@0800 [facility] Last Admin: 09/15/19 08:37 Dose: 1 tablet Documented by: Nutritional Formula ([place]ayo - [place] Flavor) [facility] Last Admin: 09/15/19 17:22 Dose: 1 packet Documented by: Nutritional Formula (Lactose Free) (Glucerna Shake) 120 ml PO TIDCM [facility]PH[facility] Last Admin: 09/15/19 17: Dose: 120 ml Documented by: Ondansetron HCl (Zofran) 4 mg IV Q8H PRN PRN PRN Reason: NAUSEA/VOMITING Potassium Phos/Sodium Phos (Neutra-Phos Packet) 1 packet PO TID [facility] Stop: 09/17/19 14:47 Last Admin: 09/15/19 17:22 Dose: 1 packet Documented by: Sodium Chloride () 10 - 40 ml IV UD PRN PRN Reason: SALINE FLUSH Thiamine HCl (Vitamin B1) 100 mg PO BIDCM [facility] Stop: 09/18/19 08:01 Last Admin: 09/15/19 17: Dose: 100 mg Documented by: Assessment/Plan All Active Problems (Last Reviewed 09/15/19 @ 08:55 by Td Bronson MD) Gastroenteritis (Acute) Left plantar heel ulceration, chronic, down to deep subcutaneous tissue layer Peripheral vascular disease lower extremity Diabetes w/ peripheral neuropathy Reviewed findings with patient. There is no evidence of infection. The ulceration was debrided in selective fashion removing the nonviable tissue which was present to the margins, this was done using a 15 blade. Post debridement the ulceration measure 1.4cm x 1.5cm and ~1cm in depth (subcutaneous tissue). Cleansed with normal saline solution. Applied Aquacel Ag with overlying gauze/kerlix dressing - change daily. No weightbearing left foot. Patient to continue follow up with Dr. Beck for PVD - patient relates he has appt next week with Dr. Beck. Podiatry will see patient weekly while he is inpt, otherwise patient to resume follow up for further wound care at wound center with Dr. Cifuentes. This was discussed with patient, he agreed with plan.
[2019-09-15 21:18] VITALS: BP 152/94; PULSE 80; RESP 18; TEMP 36.3; O2SAT 99
[2019-09-15] MEDS: Atorvastatin Calcium 10 MG Tablet 5 MG PO (21:30)
[2019-09-15 21:45] LABS: Bedside Glucose 224 mg/dL (70-110)
[2019-09-16] MEDS: Potassium Chloride 40 MEQ in 0.9% Normal Saline 1,000 ML 100 MEQ IV ×2 (00:10→11:49)
[2019-09-16 03:20] VITALS: BP 144/86; PULSE 79; RESP 18; TEMP 36.8; O2SAT 97
[2019-09-16] MEDS: Na Biphos/Potassium Phosphate PACKET 1 PACKET PO ×3 (06:39→21:51)
[2019-09-16 06:45] LABS: Bedside Glucose 111 mg/dL (70-110)
[2019-09-16 07:00] VITALS: O2SAT 95
[2019-09-16 09:04] VITALS: BP 151/85; PULSE 86; RESP 18; TEMP 37.1; O2SAT 98
[2019-09-16] MEDS: Glucerna Shake 120 ML LIQUID PO (09:05)
[2019-09-16] MEDS: Thiamine Hydrochloride 100 MG Tablet PO ×2 (09:06→17:06)
[2019-09-16] MEDS: Carvedilol 3.125 MG TABLET PO ×2 (09:06→21:51)
[2019-09-16] MEDS: Multivitamins,Ther W-Minerals Tablet 1 TABLET PO (09:06)
[2019-09-16] MEDS: Lisinopril 20 MG Tablet PO (09:06)
[2019-09-16] MEDS: Enoxaparin 40 MG/0.4 ML Syringe SC (09:06)
[2019-09-16] MEDS: Aspirin 81 MG TAB.CHEW PO (09:06)
--- NOTE | 2019-09-16 11:30 | PN_ITS ---
Patient Problems: Active and Suspected Problems (Last Reviewed 09/15/19 @ 08:[address] Td Bronson MD) Gastroenteritis (Acute) Objective: Diarrhea at least 4-5 liquid diarrhea every day. He was getting Glucerna shake and Yayo supplement which likely source of osmotic diarrhea Denies abdominal pain. No blood in the urine or stool Vitals/I&O's: Vital Signs Temp Pulse Resp BP Pulse Ox 98.8 F 86 18 151/85 H 98 09/16/19 09:04 09/16/19 09:04 09/16/19 09:04 09/16/19 09:04 09/16/19 09:04 Oxygen Delivery Method Room Air Weight: 198 lb 13.711 oz Body Mass Index (BMI) 27.7 Intake and Output for Last 24 Hours 09/14/19 09/15/19 09/16/19 23:59 23:59 23:59 Intake Total 1000 / 1000 3706.67 / 3706.67 958.33 / 958.33 Balance 1000 / 1000 3706.67 / 3706.67 958.33 / 958.33 General: Alert, Oriented x3, Cooperative HEENT: Atraumatic, PERRLA, EOMI, Normocephalic Neck: Supple, No JVD, Negative Carotid Bruits Lungs: Clear to auscultation, Normal air movement, No rhonchi, No wheeze, No rales Cardiovascular: Regular rate, Regular Rhythm, Normal S1, Normal S2, No murmurs Abdomen: Bowel Sounds Present, Soft, Non Tender, Non-Distended Extremities: No edema, Capillary Refill Less than 3 Seconds Skin: Ulcer/ Wound - Ulcer on the left heel, deep muscle level with chronic thickened, uneven margin. Patient had bedside wound debridement Musculoskeletal: No Tenderness to Palpation of Joints or Extremities, Arthritic Changes Lymphatic: No Cervical, Supraclavicular, or Inguinal Adenopathy Neurological: Cranial nerves II-XII grossly intact, Deep Tendon Reflexes 2+/4 and Symmetrical, Neuro grossly intact Psych/Mental Status: Normal Affect, Appropriate Microbiology Past 72 Hours 09/14/19 22:45 Stool Stool Occult Blood (PARTH) - Final Occult Blood Positive 09/14/19 22:45 Stool Stool Lactoferrin - Final 09/14/19 22:45 Stool Enteric Bacteriology - Final Campylobacter species 09/14/19 22:45 Stool C. difficile DNA Amplification - Final Laboratory Results 09/15/19 11:55: Potassium 3.8 09/15/19 12:13: POC Glucose 139 H 09/15/19 17:19: POC Glucose 204 H 09/15/19 21:28: POC Glucose 224 H 09/16/19 06:39: POC Glucose 111 H Current Medications Aspirin (Aspirin, Baby) 81 mg PO DAILY@0800 [facility] Last Admin: 09/16/19 09:06 Dose: 81 mg Documented by: Atorvastatin Calcium (Lipitor) 5 mg PO QHS [facility] Last Admin: 09/15/19 21:30 Dose: 5 mg Documented by: Calamine/Phenol (Calmoseptine Ointment) 1 applic TOPICAL TID [facility]; Protocol Carvedilol (Coreg) 3.125 mg PO BID [facility] Last Admin: 09/16/19 09:06 Dose: 3.125 mg Documented by: Diazepam (Valium) 5 mg PO Q24H PRN PRN Reason: Agitation Dicyclomine HCl (Bentyl) 10 mg PO Q8H PRN PRN PRN Reason: abdominal pain Enoxaparin Sodium (Lovenox) 40 mg SC DAILY [facility] Last Admin: 09/16/19 09:06 Dose: 40 mg Documented by: Glucagon () 1 mg IM .X1 PRN PRN Reason: Hypoglycemia Potassium Chloride 40 meq/ (Sodium Chloride) 1,020 mls @ 100 mls/hr IV .Q28C09M [facility] Last Admin: 09/16/19 00:10 Dose: 100 mls/hr Documented by: Dextrose (Dextrose 10%-Water) 250 mls @ 999 mls/hr IV .Q16M PRN; Protocol PRN Reason: HYPOGLYCEMIA Sodium Chloride () 1,000 mls @ 100 mls/hr IV .Q10H [facility] Stop: 09/17/19 07:29 Insulin Human Lispro (Humalog Kwikpen (Bkc)) 0 unit SC A[facility]S [facility]; Protocol Last Admin: 09/16/19 06:40 Dose: Not Given Documented by: Lisinopril (Zestril) 20 mg PO DAILY [facility] Last Admin: 09/16/19 09:06 Dose: 20 mg Documented by: Lorazepam (Ativan) 2 mg PO Q2H PRN PRN; Protocol PRN Reason: CIWA score > 8 but <15 Lorazepam (Ativan) 2 mg PO UD PRN; Protocol PRN Reason: CIWA score >/=15. Lorazepam (Ativan) 2 mg IV Q2H PRN PRN; Protocol PRN Reason: CIWA score > 8 but <15 Lorazepam (Ativan) 2 mg IV UD PRN; Protocol PRN Reason: CIWA score >/=15. Melatonin (Melatonin) 3 mg PO QHS PRN PRN PRN Reason: INSOMNIA Multivitamins/Minerals (Multivitamin With Minerals (Bkc)) 1 tablet PO DAILY@0800 [facility] Last Admin: 09/16/19 09:06 Dose: 1 tablet Documented by: Ondansetron HCl (Zofran) 4 mg IV Q8H PRN PRN PRN Reason: NAUSEA/VOMITING Potassium Phos/Sodium Phos (Neutra-Phos Packet) 1 packet PO TID [facility] Stop: 09/17/19 14:47 Last Admin: 09/16/19 06:39 Dose: 1 packet Documented by: Sodium Chloride () 10 - 40 ml IV UD PRN PRN Reason: SALINE FLUSH Thiamine HCl (Vitamin B1) 100 mg PO BIDCM [facility] Stop: 09/18/19 08:01 Last Admin: 09/16/19 09:06 Dose: 100 mg Documented by: STROKE Vital Signs/Narrative: Vital Signs Temp Pulse Resp BP Pulse Ox 09/16/19 09:04 98.8 F 86 18 151/85 H 98 Medical Necessity - Tobacco Use Smoking Status: Former smoker Tobacco Use: Cigars Assessment/Plan All Active Problems (Last Reviewed 09/15/19 @ 08:[address] Td Bronson MD) Gastroenteritis (Acute) The patient is a 74 year old M with a significant history of diabetes mellitus; alcoholism; legal blindness and chronic diabetic wound who presented to emergency department with nausea, vomiting and diarrhea; abdominal pain and found to have pancolitis on CT consistent with acute gastroenteritis with colitis. 1. Acute gastroenteritis and colitis secondary to Campylobacter enterocolitis: Patient admitted on [facility]. CT imaging independently reviewed and suggestive of mild to moderate wall thickening of colon with surrounding stranding suggesti ve of pancolitis. Punctate nonobstructing right renal calculus. Stool for occult blood and WBC positive. Stool for C. difficile negative. Enteric bacteriology panel positive Campylobacter species. As patient does not have high fever, bloody stool, prolonged more than 1 week symptoms or immunocompromised host, therefore antibiotic is not indicated. For severe Campylobacter infection, macrolide therapy is preferred. Patient is also discussed possible post Campylobacter infection complications including IBS, reactive arthritis and Guillain-Holly? syndrome and follow-up PCP as an outpatient. Supportive treatment with IV fluids; and antiemetics; and PRN pain medicine. 09/16/2019: Abdomen is nontender. Patient mostly having diarrhea secondary to Campylobacter and Glucerna shake and Yayo, nutritional supplement or from alcohol withdrawal also is not having tremors, anxiety or other signs and symptoms of withdrawal. Will shortness of injury when stopped which may be resumed later with no diarrhea resolves. Continue IV fluid. 2. Diabetes mellitus with complicated with peripheral neuropathy, uncontrolled hyperglycemia, retinopathy with legal blindness, and chronic nonhealing diabetic foot ulcer. Neuropathy and hyperglycemia Hold home metformin that could contribute to lactic acidosis Accu-Cheks with correction scale insulin. Lisinopril continued. 3. Left heel ulcer, chronic nonhealing with history of osteomyelitis. Patient had MRI in November 2018 which showed osteomyelitis of the calcaneus. Partial tear entered in addition of Achilles tendon with atrophy of the abductor digiti minimi muscle. Patient follows wound care center with Dr. Leal. Discussed with her. PT and OT ordered. 4. Hypertension: Blood pressure is not controlled. 156/92. Most recent 138/85. 5. Chronic alcohol use disorder along with mild hypokalemia hypophosphatemia: Patient drinks about 8 bottles of beer per day. Last time he drank was about 4 days ago. CIWA monitoring. On Ativan as needed as per CIWA scale. Potassium replaced. Repeat potassium 3.8. Magnesium 1.7. Phosphorus 2.4. On thiamine, folic acid and multivitamin. DVT prophylaxis Subcutaneous Lovenox. Total time of the visit including total time spent in counseling or coordination of care, (more than 50% of the total time, spent in obtaining medical information from nurses and other ancillary care providers), care of coordination with strategy consultant, product safety and standards engineer, discussion with patient and his friend at the bedside, review of labs and imaging is 30 minutes Signout: Possible discharge tomorrow a.m. either SNF or home health Clinical Impression(s) from Imaging Studies Abdomen/Pelvis CT 09/15/19 01:00 IMPRESSION: Pancolitis, most likely to be infectious or inflammatory in nature. Punctate nonobstructing right renal calculus. Individualized dose optimization techniques were used for this CT. Microbiology Past 72 Hours 09/14/19 22:45 Stool C. difficile DNA Amplification - Final Laboratory Results 09/14/19 20:45: WBC 6.7, RBC 4.41 L, Hgb 13.3, Hct 39.0 L, MCV 88.4, MCH 30.2, MCHC 34.1, RDW Std Deviation 41.5, RDW Coeff of Doris 12.8, Plt Count 210, MPV 9.7, Immature Gran % (Auto) 0.500, Neut % (Auto) 59.4, Lymph % (Auto) 24.0, Ward % (Auto) 15.0 H, Eos % (Auto) 0.6, Baso % (Auto) 0.5, Absolute Neuts (auto) 4.0, Absolute Lymphs (auto) 1.60, Nucleated RBC % 0 09/14/19 20:45: Sodium 136, Potassium 3.3 L, Chloride 103, Carbon Dioxide 25.0, Anion Gap 8, BUN 10, Creatinine 0.99, Estim Creat Clear Calc 71.84, Est GFR (MDRD) Af Amer 96, Est GFR (MDRD) Non-Af 79, BUN/Creatinine Ratio 10.1, Glucose 240 H, Calcium 9.3, Total Bilirubin 0.50, AST 15, ALT 19, Alkaline Phosphatase 66, Total Protein 7.5, Albumin 3.5, Globulin 4.0, Albumin/Globulin Ratio 0.9 09/14/19 21:30: Lactic Acid 2.7 H* 09/15/19 02:44: Lactic Acid 1.2 09/15/19 04:27: POC Glucose 176 H 09/15/19 05:42: WBC 7.9, RBC 4.02 L, Hgb 12.5 L, Hct 36.3 L, MCV 90.3, MCH 31.1, MCHC 34.4, RDW Std Deviation 41.4, RDW Coeff of Doris 12.6, Plt Count 202, MPV 9.6, Immature Gran % (Auto) 0.800, Neut % (Auto) 58.8, Lymph % (Auto) 24.0, Ward % (Auto) 15.3 H, Eos % (Auto) 0.6, Baso % (Auto) 0.5, Absolute Neuts (auto) 4.6, Absolute Lymphs (auto) 1.89, Nucleated RBC % 0 09/15/19 05:42: Sodium 138, Potassium 3.2 L, Chloride 107, Carbon Dioxide 26.0, Anion Gap 5, BUN 8, Creatinine 0.79, Estim Creat Clear Calc 71.12, Est GFR (MDRD) Af Amer 124, Est GFR (MDRD) Non-Af 102, BUN/Creatinine Ratio 10.1, Glucose 152 H, Calcium 8.7, Magnesium 1.7 09/15/19 06:39: POC Glucose 110 Code Visit Inpatient E&M: 23912 Subs Hosp L2
--- NOTE | 2019-09-16 11:35 | CASEMGMT ---
RN [facility] [employer] [employer] CM to room to meet with patient for initial transition planning/care coordination assessment. MICHELLE LAROSE introduced self and role at [facility]. Pt voices understanding and consents to assessment at this time. Pt resting in bed in no distress at this time. Pt is A/O at this time and answers all questions appropriately. Care providers, pharmacy, and demographics verified/updated at this time. PCP: Dr Marcellus Moore Specialists: [facility]--goes [facility] Preferred Pharmacy: [facility] Insurance: [facility] A and B. Does not have secondary insurance. Prescription Benefit: States he thinks he has prescription coverage but he is not sure. Living Will/HPOA: does not have LW or HCPOA . Interested in more information but states does not want to talk with SW at this time to complete paperwork. Pt states that he would want his daughter, Sarah, to be his POA, if he decides to complete them, but he wants to talk with her first. Provided information on advanced directives and given Social Service rac card with number to call if chooses in the future to utilize [facility] social work for advanced directive completion. Pt made aware, if he decides to complete them while he is here @ [facility], to ask for SW. Pt voices understanding. LNOK: Has 4 adult living children. Living Arrangements: Lives alone in a mobile home w/3 steps to enter--handrails on both sides. Pt denies difficulty with the stairs. He states he is independent with ADL's--states he cooks his own meals and does own home mgmt tasks. Pt states his friends Paul and his Ema live close by and are very supportive, stating that Paul stops in 10 x's a day. Transportation: Pt states Paul provides all his transportation to doctor appts and the grocery store. DME: has the following DME: Knee rollator, cast protector for his wound, and has a stool in the shower. Pt states no need for further DME at this time. HHC/SNF: No history of SNF. Current with [facility]--group home. Pt wishes to return home w/continuation of [facility] HHC services and states has no concerns with going home at time of discharge. Discussed option of having PT/OT through [facility] as well, but pt declines at this time. Resumption order placed for HHC: [facility]. Pt drinks ETOH. He states he drinks about 8 beers a day and has drank for approx 50 years. Pt states he is not interested in quitting and does not want to talk with SW for resources. He states, I have been able to quit many times before, but I don't see any reason why to again. I know there are health reasons, but other than that, it is my lifestyle and I don't have any desire to quit. Pt is legally blind. Provided pt with resource/phone number to contact for [employer] ([employer] [place]) to see if he qualifies for any adaptive equipment/services. Pt voices appreciation. CM to follow for any further discharge planning/needs. Pt voices no further concerns/needs at this time. Advised pt to ask for CM if any further questions/concerns/needs arise. Voices understanding. PLAN: Home with resumption of [facility] HHC: group home CM to follow for any concerns of cost of meds @ d/c, as pt states is not sure if he has Prescription coverage. Cara ADAM RN CM
[2019-09-16] MEDS: Insulin Lispro 100 UNIT/ML INSULN.PEN SC ×2 (11:53→21:49)
[2019-09-16 12:01] LABS: Bedside Glucose 226 mg/dL (70-110)
--- NOTE | 2019-09-16 14:15 | NURSING ---
reviewed and agree with documentation by JIA Jones from 09/15/2019
[2019-09-16] MEDS: 0.9% Normal Saline 1,000 ML 100 ML IV (14:50)
[2019-09-16] MEDS: Menthol/Lanolin/Calamine/Znox 113 GM Tube 1 APPLIC TOPICAL ×2 (14:57→21:52)
[2019-09-16 15:00] VITALS: BP 132/69; PULSE 81; RESP 18; TEMP 36.9; O2SAT 100
[2019-09-16] MEDS: 0.9% Normal Saline 1,000 ML 50 ML IV (17:04)
[2019-09-16] MEDS: Azithromycin 250 MG Tablet 500 MG PO (17:04)
[2019-09-16 17:10] LABS: Bedside Glucose 128 mg/dL (70-110)
[2019-09-16 21:47] VITALS: BP 149/87; PULSE 80; RESP 18; TEMP 36.9; O2SAT 98
[2019-09-16] MEDS: Atorvastatin Calcium 10 MG Tablet 5 MG PO (21:51)
[2019-09-16 22:05] LABS: Bedside Glucose 247 mg/dL (70-110)
[2019-09-17 03:30] VITALS: BP 153/87; PULSE 80; RESP 16; TEMP 36.9; O2SAT 99
[2019-09-17 06:55] LABS: Bedside Glucose 143 mg/dL (70-110)
[2019-09-17] MEDS: Na Biphos/Potassium Phosphate PACKET 1 PACKET PO (06:55)
[2019-09-17] MEDS: Menthol/Lanolin/Calamine/Znox 113 GM Tube 1 APPLIC TOPICAL (06:55)
[2019-09-17 08:50] VITALS: BP 144/78; PULSE 74; RESP 18; TEMP 37.1; O2SAT 97
[2019-09-17] MEDS: Thiamine Hydrochloride 100 MG Tablet PO (08:53)
[2019-09-17] MEDS: Azithromycin 250 MG Tablet 500 MG PO (08:53)
[2019-09-17] MEDS: Aspirin 81 MG TAB.CHEW PO (08:53)
[2019-09-17] MEDS: Lisinopril 20 MG Tablet PO (08:53)
[2019-09-17] MEDS: Enoxaparin 40 MG/0.4 ML Syringe SC (08:53)
[2019-09-17] MEDS: Multivitamins,Ther W-Minerals Tablet 1 TABLET PO (08:53)
[2019-09-17] MEDS: Carvedilol 3.125 MG TABLET PO (08:53)
--- NOTE | 2019-09-17 10:46 | DCINST_ITS ---
- Discharge Diagnoses Current Active Problems: Current Active and Chronic Problems (Last Reviewed 09/15/19 @ 08:[address] Td Bronson MD) Gastroenteritis (Acute) You will use the following diet at home:: Cardiac Your food should be the consistency of: Regular Your liquids should be the consistency of: Regular/Thin Discharge Activity: Return to Normal Activity Weight Bearing Status: Weight bearing as tolerated Call your doctor if you observe: Fever of 101 or Higher, - - ABDOMINAL PAIN, DIARRHEA, VOMITING Instructions: Campylobacter Culture (Stool) Additional Instructions: Boil water from well before drinking. Allergies/Adverse Reactions: Allergies No Known Allergies Allergy (Verified 09/14/19 20:39) Medications to take at Discharge Aspirin [Aspirin, Baby] 81 mg PO DAILY@0800 07/03/15 Lovastatin [Mevacor] 20 mg PO DAILY 07/03/15 Multivit with Minerals/Lutein [Pub Multivitamin 50 Plus Tab] 1 ea PO DAILY 07/03/15 metFORMIN HCl [Glucophage] 1,000 mg PO DAILY 07/03/15 Lisinopril 20 mg PO DAILY 12/09/18 carvedilol 3.125 mg tablet 3.125 mg PO BID #60 tab 08/05/19 Azithromycin 500 mg PO DAILY #4 tab 09/17/19 The following prescriptions were given: Azithromycin 500 mg PO DAILY #4 tab Transmission Status: Pending to [facility] Primary Care Physician: Marcellus Moore MD [Primary Care Provider] - Please follow up with your Primary Care Physician in: one week Test Results: Test results from this visit will be discussed in further detail at your follow- up appointment, if applicable. Proposed Discharge Date: 09/17/19
--- NOTE | 2019-09-17 13:02 | CASEMGMT ---
MICHELLE CM NOTE: Pt has been discharged. Ashanti @ [facility] is aware. Cara ADAM RN CM
--- NOTE | 2019-09-17 14:33 | PCM.DC.SUM ---
Discharge Date and Diagnosis Date of Admission: 09/14/19 Date of Discharge: 09/17/19 - Primary Discharge Diagnosis acute gastroenteritis campylobacter Jejuni infection - Secondary Discharge Diagnosis Chronic Problems (Last Reviewed 09/15/19 @ 08:[address] 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 Punctate nonobstructing right renal calculus. Individualized dose optimization techniques were used for this CT. at 0223 Reported and signed by: Martha Warner MD Electronically Signed: Martha Warner MD at 2:23 EST Tel , Service support , Consultations 09/15/19 03:07 Consult: Onc/Wound/sewing techniques demonstrator Routine Comment: Reason for Consult:: wound on dorsum of left foot Operations: None Procedures: None Summary of Care Provided: The patient is a 74 year old M with a PMH as outlined. He was admitted through the ED on 09/14/2019 with a complaint of nausea, vomiting and diarrhea was started 2 days prior to admission with assisted generalized abdominal pain. Lactic acid was elevated and he also had hypokalemia. CT of the abdomen and pelvis showed pancolitis and punctate nonobstructing right renal calculus. He was admitted and managed for acute gastroenteritis. He was started on IV fluids. C. difficile done was negative. Stool for enteric pathogens was positive for Campylobacter Jejuni. Patient was started on azithromycin and symptoms improved markedly. Diarrhea had resolved at the time patient was ready to be discharged. On 09/17/2019, patient said he felt well and was ready to be discharged. Of note, podiatry was also consulted on account of a chronic left heel ulceration for which he had been following Dr. Cifuentes at the wound center. Podiatry recommendation was for him to follow-up at the wound center. Patient remained stable and was discharged on 09/17/2019. He is to follow-up with his primary care doctor, was also counseled to follow-up with Dr. Beck the vascular surgeon as well as podiatry. He was given a prescription for p.o. azithromycin 500 mg daily for 4 days. Patient seen and examined prior to discharge. On further questioning, he admitted that his drinking water source was a closed well. He does not boil the water before drinking. He states he has cats but they do not go anywhere near the well. Review of symptoms otherwise negative. Diarrhea had resolved. Labs and vitals reviewed. Home medication reviewed and reconciled. o/e: Vital Signs Height 5 ft 11 in Weight: 198 lb 13.711 oz Weight in Pounds 198.9 lbs Pulse Ox 97 Temperature 98.8 F Pulse Rate 74 Respiratory Rate 18 Blood Pressure 144/78 Blood Pressure Position Semi-Fowlers [] General: Alert, Oriented x3, Cooperative HEENT: Atraumatic, PERRLA, EOMI, Normocephalic Neck: Supple, No JVD, Negative Carotid Bruits Lungs: Clear to auscultation, Normal air movement, No rhonchi, No wheeze, No rales Cardiovascular: Regular rate, Regular Rhythm, Normal S1, Normal S2, No murmurs Abdomen: Bowel Sounds Present, Soft, Non Tender, Non-Distended Extremities: No edema, Capillary Refill Less than 3 Seconds Skin: Ulcer/ Wound - chronic ulcer on left heel. Musculoskeletal: No Tenderness to Palpation of Joints or Extremities, Arthritic Changes Lymphatic: No Cervical, Supraclavicular, or Inguinal Adenopathy Neurological: Cranial nerves II-XII grossly intact, neuro grossly intact Psych/Mental Status: Normal Affect, Appropriate Plan is as above, for discharge today. Patient was counseled to boil his water from the well before drinking. - Physical Exam Vitals/I&O's: Vital Signs Temp Pulse Resp BP Pulse Ox 98.8 F 74 18 144/78 H 97 09/17/19 08:50 09/17/19 08:50 09/17/19 08:50 09/17/19 08:50 09/17/19 08:50 Oxygen Delivery Method Room Air Weight: 198 lb 13.711 oz Body Mass Index (BMI) 27.7 Intake and Output for Last 24 Hours 09/15/19 09/16/19 09/17/19 23:59 23:59 23:59 Intake Total 3706.67 / 3706.67 3716.67 / 3716.67 1331.67 / 1331.67 Output Total 400 / 400 900 / 900 Balance 3706.67 / 3706.67 3316.67 / 3316.67 431.67 / 431.67 Microbiology Past 72 Hours 09/15/19 11:44 Blood Culture (Wb) - Left Forearm Blood Culture - Preliminary No growth in 48 hours. 09/15/19 11:36 Blood Culture (Wb) - Anticubital Left Blood Culture - Preliminary No growth in 48 hours. 09/14/19 22:45 Stool Stool Occult Blood (PARTH) - Final Occult Blood Positive 09/14/19 22:45 Stool Stool Lactoferrin - Final 09/14/19 22:45 Stool Enteric Bacteriology - Final Campylobacter species 09/14/19 22:45 Stool C. difficile DNA Amplification - Final Laboratory Results 09/16/19 17:02: POC Glucose 128 H 09/16/19 21:46: POC Glucose 247 H 09/17/19 06:48: POC Glucose 143 H Discharge Diet: Low fat/ Low Cholesterol Discharge Activity: Return to Normal Activity Weight Bearing Status: Weight bearing as tolerated Call your doctor if you observe: Fever of 101 or Higher, - - ABDOMINAL PAIN, DIARRHEA, VOMITING Home Medications: Medications to take at Discharge Aspirin [Aspirin, Baby] 81 mg PO DAILY@0800 07/03/15 Lovastatin [Mevacor] 20 mg PO DAILY 07/03/15 Multivit with Minerals/Lutein [Pub Multivitamin 50 Plus Tab] 1 ea PO DAILY 07/03/15 metFORMIN HCl [Glucophage] 1,000 mg PO DAILY 07/03/15 Lisinopril 20 mg PO DAILY 12/09/18 carvedilol 3.125 mg tablet 3.125 mg PO BID #60 tab 08/05/19 Azithromycin 500 mg PO DAILY #4 tab 09/17/19 Following Prescrptions Were Given to Patient: Azithromycin 500 mg PO DAILY #4 tab Transmission Status: Received by [facility] Primary Care Physician: Marcellus Moore MD [Primary Care Provider] - Please follow up with your Primary Care Physician in: one week Patient Instructions: Campylobacter Culture (Stool) Disposition: Home Minutes spent on discharge:: 35 Patient Condition:: Stable Medical Necessity - Tobacco Use Smoking Status: Former smoker Tobacco Use: Cigars Meaningful Use Info Meaningful Use Diagnoses (Choose all that apply): None applicable Code Visit Inpatient E&M: 23937 Disch Hosp
--- NOTE | 2019-09-20 15:45 | CASEMGMT ---
Case Management DC F/u Call: DC Date: 09/17/2019 DC Diagnosis: acute gastroenteritis, campylobacter Jejuni infection DC Disposition: Home, [facility], Wound Ctr Lace/Strata: 04/29 Called patient listed cell phone on demographics, patient answered and this rewriter introduced self and role. Patient states that he is doing fine. Confirmed prescription was received from hospital prior to leaving and denies any issues, questions or concerns with [facility], medications or f/u. Thanked patient for choosing care here at [facility] and conversation ended. Phill Polo, RNCM
== END 2019-09-17 11:42 | disposition home health service (06) | DRG 982 ==
LOC: ED 20:58 → MS3 09-15 00:42
PROVIDERS: Internal Medicine; Admitting Provider Hospitalist; Emergency Provider Emergency Medicine; PCP Family Medicine; Visit Provider Student in an Organized Health Care Education/Training Program
DX: A04.5 Campylobacter enteritis (principal); L97.422 Non-pressure chronic ulcer of left heel and midfoot with fat layer exposed; E87.2 Acidosis; N20.0 Calculus of kidney; H54.8 Legal blindness, as defined in USA; E11.65 Type 2 diabetes mellitus with hyperglycemia; E11.42 Type 2 diabetes mellitus with diabetic polyneuropathy; E11.621 Type 2 diabetes mellitus with foot ulcer; E11.319 Type 2 diabetes mellitus with unspecified diabetic retinopathy without macular edema; E87.6 Hypokalemia; E83.39 Other disorders of phosphorus metabolism; E78.5 Hyperlipidemia, unspecified; I10 Essential (primary) hypertension; Z79.84 Long term (current) use of oral hypoglycemic drugs; Z87.891 Personal history of nicotine dependence; I73.9 Peripheral vascular disease, unspecified
CPT/HCPCS: 36415; 74177; 80048; 80053; 82274; 82962; 83605; 83630; 83735; 84100; 84132; 85025; 87040; 87493; 87506; 97802; 99285; J7030; Q9967; A4216; J2405

== ENCOUNTER 2019-09-22 11:45 | Outpatient (RCR) | payer MEDICARE, SELFPAY ==
[2019-08-28 00:34] VITALS: BP 154/84; PULSE 74; RESP 18; TEMP 36.4; BMI 28.4
[2019-09-01 08:27] VITALS: BP 180/86; PULSE 77; RESP 18; TEMP 36.4; BMI 28.4
--- NOTE | 2019-09-01 09:08 | PCM.WC.PN ---
(1) PVD (peripheral vascular disease) Status: Chronic Current Visit: Yes Code(s): I73.9 - Peripheral vascular disease, unspecified (2) Type 2 diabetes mellitus with diabetic polyneuropathy Status: Chronic Current Visit: Yes Code(s): E11.42 - Type 2 diabetes mellitus with diabetic polyneuropathy (3) Osteomyelitis Status: Chronic Current Visit: Yes Qualifiers: Code(s): M86.9 - Osteomyelitis, unspecified (4) Chronic ulcer of left foot with fat layer exposed Status: Chronic Current Visit: Yes Code(s): L97.522 - Non-pressure chronic ulcer of other part of left foot with fat layer exposed (5) Delayed wound healing Status: Chronic Current Visit: Yes Code(s): T14.8XXD - Other injury of unspecified body region, subsequent encounter (6) Malnutrition Status: Chronic Current Visit: Yes Code(s): E46 - Unspecified protein-calorie malnutrition Type of Wound Date of Service: 09/01/19 Chief Complaint: Left heel ulcer History of Wound: This 74-year-old male with multiple comorbidities is seen today for left plantar heel ulcer. He is status post Versajet operating room debridement with application of advanced wound healing product including amnio fill and epi cord performed. The surgery was performed on August 06, 2019. He continues to remain nonweightbearing. He had vascular surgery intervention performed recently with Dr. Beck. He is with his neighbor today. He defers additional advanced treatment such as hyperbaric oxygen. He is unable to transport on his own without assistance. He is currently ambulating with the assistance of a knee scooter. He denies fever, chill, nausea, vomiting, loss of appetite, or diarrhea. He has completed a course of doxycycline and ciprofloxacin. He is amendable to proceed with epi fix application today. He is unaware if he has a vascular follow-up. Progress of Wound: improving - Physical Exam Vital Signs Temp Pulse Resp BP 97.5 F L 77 18 180/86 H 09/01/19 08:27 09/01/19 08:27 09/01/19 08:27 09/01/19 08:27 General: Alert, Oriented x3, Cooperative, No apparent distress Extremities: No cyanosis, Capillary Refill Less than 3 Seconds, No Calf Tenderness, Diminished Peripheral Pulses, Edema Skin: Ulcer/ Wound - Has a partially granular base with some peripheral callus. There is no purulence, odor, streaking or acute signs of infection. Wound Measurements and Assessment WC - Nurse 1 - General Ulcer Measurement Start: 09/01/19 08:27 Freq: Status: Active Protocol: Activity Type Activity Date Activity User E-Sign Co-Sign Detail Recorded Client Recorded Date Recorded By Document 09/01/19 08:27 RB [id number] 09/01/19 08:29 RB 09/01/19 08:27 Wound Center Nurse 1 [Ulcer Assessment] #1 Left Heel -Combined with other wound No -Current Size (cm) - Length 1.5 -Current Size (cm) - Width 1.5 -Current Size (cm) - Depth 1 -Total Square Cm 2.25 -Tunneling No -Undermining/Tunneling No -Circular Undermining No -Exudate Amt Small -Exudate Type Serosanguineous -Wound Margin Thickened & Rolled Under -Granulation Amt Medium (34-66%) -Granulation Quality [place] -Slough/Fibrin Yes -Necrosis Amt Small (1-33%) -Necrotic Tissue Type Adherent Slough -Structure Exposed N/A -Texture (Emily-wound Skin Appearance) Assessed,Callus -Moisture (Emily-wound Skin Appearance No Abnormality ) -Color (Emily-wound Skin Appearance) Assessed -Temperature (Emily-wound Skin No Abnormality Appearance) (Pt Warm) -Tenderness on Palpation (Emily-wound No Skin Appearance) -Ulcer Cleansing Wound Cleanser -Foul Odor after Cleansing No -Anesthetic Used 5% Lidocaine Gel [Edema Assessment] -Lower Limb Edema Present Yes -Left Calf (cm) 36 -Left Ankle (cm) 22 - Nurse 2 - General Ulcer CM Notes Start: 09/01/19 08:27 Freq: Status: Active Protocol: Activity Type Activity Date Activity User E-Sign Co-Sign Detail Recorded Client Recorded Date Recorded By Document 09/01/19 08:41 GAGE [id number] 09/01/19 08:43 GAGE 09/01/19 08:41 Wound Center Nurse 2 [Procedure/Treatment] #1 Left Heel -Time 08:41 -Correct Patient Yes -Correct Side, Site, Position Yes -Correct Procedure Yes -Procedure Performed Yes -Type of Procedure Debridement -Clinical Debridement Subcutaneous -Post Debridement Size (cm) - Length 1.5 -Post Debridement Size (cm) - Width 1.6 -Post Debridement Size (cm) - Depth 1.1 -Total Square Cm 2.40 -Wound/Ulcer Outcome Not Healed -Ulcer Cleansing Rinsed/ Irrigated with Saline -Foul Odor after Cleansing No -Bioengineered Tissue Yes -Type of bioengineered Tissue EPIFIX -Expiration Date 04/27/24 -Product Lot Number [id number] -Percent Used 100 -Saline Lot Number [id number] -Bleeding Controlled with Pressure -Offloading Yes -Type of Offloading Knee Walker -Treatment Response Procedure Tolerated Well [See Physician Procedure note for Specifics] Pain Scale: 0-10 Numeric [Pain] -Is Patient Pain Free? Yes Musculoskeletal: No Tenderness to Palpation of Joints or Extremities, Muscle Wasting, - - No pain on palpation Neurological: - - Lack of normal epicritic sensation light touch Psych/Mental Status: Normal Affect, Appropriate Debridement Note Post-Debridement Measurements/Treatment WC - Nurse 2 - General Ulcer CM Notes Start: 09/01/19 08:27 Freq: Status: Active Protocol: Activity Type Activity Date Activity User E-Sign Co-Sign Detail Recorded Client Recorded Date Recorded By Document 09/01/19 08:41 GAGE [id number] 09/01/19 08:43 GAGE 09/01/19 08:41 Wound Center Nurse 2 #1 Left Heel -Time 08:41 -Correct Patient Yes -Correct Side, Site, Position Yes -Correct Procedure Yes -Procedure Performed Yes -Type of Procedure Debridement -Clinical Debridement Subcutaneous -Post Debridement Size (cm) - Length 1.5 -Post Debridement Size (cm) - Width 1.6 -Post Debridement Size (cm) - Depth 1.1 -Total Square Cm 2.40 -Wound/Ulcer Outcome Not Healed -Ulcer Cleansing Rinsed/ Irrigated with Saline -Foul Odor after Cleansing No -Bioengineered Tissue Yes -Type of bioengineered Tissue EPIFIX -Expiration Date 04/27/24 -Product Lot Number [id number] -Percent Used 100 -Saline Lot Number [id number] -Bleeding Controlled with Pressure -Offloading Yes -Type of Offloading Knee Walker -Treatment Response Procedure Tolerated Well Pain Scale: 0-10 Numeric Is Patient Pain Free? Yes Wound debrided: plantar heel Laterality: Left Wound Grade/Stage: grade 3 Type of Debridement: Excisional debridement Anesthesia Used: 5% Lidocaine Gel Depth: in the subcutaneous layer Percentage of wound debrided: 100 Instrument Used: #15 blade Tissue Removed: fibrous, devitalized subcutaneous, biofilm, slough Severity: Fat Layer Exposed Amount of bleeding with debridement: Mild Bleeding Controlled with: Pressure Patient tolerated procedure well Assessment/Plan Active Problems (Last Reviewed 08/03/19 @ 13:14 by Steffi Mcintosh) PVD (peripheral vascular disease) (Chronic) Type 2 diabetes mellitus with diabetic polyneuropathy (Chronic) Osteomyelitis (Chronic) Chronic ulcer of left foot with fat layer exposed (Chronic) Delayed wound healing (Chronic) Malnutrition (Chronic) Assessment: Left heel ulcer, current bacterial contamination with multiple organisms with previous grade 3 ulcer status with osteomyelitis. Status post operating room Versajet debridement with application of advanced wound healing products including amnio fill epicardial form August 06, 2019. Left Achilles tendon rupture healed. Peripheral vascular disease. Diabetes with neuropathy. Malnutrition. Other comorbidities. Walking difficulty Plan: Patient was examined and evaluated today. I reviewed and discussed his case. His recent surgical site was evaluated. Hyperkeratotic tissue debrided. Subcutaneous excisional debridement was performed as noted in the clinical panel. Recent culture findings discussed with patient. To continue knee roller use at home to aid with compliance. Cultures were obtained after the previous debridement irrigation was performed and it is noted MRSA, E. coli, corynebacterium, and others. I recommend he takes oral ciprofloxacin and doxycycline and this is been completed. It is noted there are no local or systemic signs of illness. He understands these are pathological bacteria that were identified and this needed to be addressed. he has been cleaning with an antimicrobial soap. This is been improving in quality and with suspected reduction of bioburden. I recommend application of advanced wound healing product today, epi-fix. The prior authorization was completed. This is medically necessary for limb salvage. The advanced product I recommend is epi-fix. The indications, benefits, anticipated healing time and management were reviewed. This was applied according to standard protocol. 100% of the product was utilized. This was secured in place with a wound veil and Steri-Strips. A bolster gauze dressing was applied he can keep this intact and clean and dry for the next week. I recommended a shower bag and provided for different locations where she can obtain this. It is noted his noninvasive vascular studies were abnormal again and he has had previous lower extremity ulcers with significant delayed healing. He saw Dr. Beck and angiogram was performed. It appears he missed his follow-up appointment with Dr. Beck and is unaware of any follow-up appointments recommended. His office was called and he was rescheduled. The patient was further called after clinic and was informed that he needs to follow-up. I answered all of his questions. We also discussed the treatment option of hyperbaric oxygen therapy because he does have a grade 3 ulcer and prior diagnosis of osteomyelitis. He is not able to come to the wound care center on a daily basis and is not ready to commit to this process. The indications, planned application, anticipated healing time management and benefits and complications were discussed. I answered his questions. We also discussed transitioning him to a palliative care program. He recently had surgical intervention and advanced wound product applied and would like to give that a little bit more time especially because we are dressing is bacterial contamination. He is understanding the wound care plan would like to proceed at this time. To return to the wound healing center 1 week or call sooner if you have any questions or concerns. 2020 [facility] entry-. Reviewed today: He denies pain and his follow-up plan has been established. His medication allergy profile has been reconciled. Reviewed August 18, 2019: He is having a current smoking status and cessation intervention was advised. His blood pressure is 163/94 which is elevated. I recommend he follows up with his primary care physician due to associated risk factors. He is advised to maintain appropriate activity and diet as well. He does have an advanced care plan on file. His pneumococcal influenza immunization status was also reviewed.
[2019-09-08 08:34] VITALS: BP 179/92; PULSE 69; RESP 20; TEMP 36.1; BMI 28.4
--- NOTE | 2019-09-08 11:55 | PN.PCM_ITS ---
(1) Chronic ulcer of left foot with fat layer exposed Status: Chronic Current Visit: Yes Code(s): L97.522 - Non-pressure chronic ulcer of other part of left foot with fat layer exposed (2) PVD (peripheral vascular disease) Status: Chronic Current Visit: Yes Code(s): I73.9 - Peripheral vascular disease, unspecified (3) Type 2 diabetes mellitus with diabetic polyneuropathy Status: Chronic Current Visit: Yes Code(s): E11.42 - Type 2 diabetes mellitus with diabetic polyneuropathy (4) Osteomyelitis Status: Chronic Current Visit: Yes Qualifiers: Code(s): M86.9 - Osteomyelitis, unspecified (5) Delayed wound healing Status: Chronic Current Visit: Yes Code(s): T14.8XXD - Other injury of unspecified body region, subsequent encounter (6) Malnutrition Status: Chronic Current Visit: Yes Code(s): E46 - Unspecified protein- calorie malnutrition Type of Wound Date of Service: 09/08/19 Chief Complaint: Left heel ulcer History of Wound: This 74-year-old male with multiple comorbidities is seen today for left plantar heel ulcer. He is status post Versajet operating room debridement with application of advanced wound healing product including amnio fill and epi cord performed. The surgery was performed on August 06, 2019. He continues to remain nonweightbearing. He had vascular surgery intervention performed recently with Dr. Beck. He is with his neighbor today. He defers additional advanced treatment such as hyperbaric oxygen. He is unable to transport on his own without assistance. He is currently ambulating with the assistance of a knee scooter. He denies fever, chill, nausea, vomiting, loss of appetite, or diarrhea. He has completed a course of doxycycline and ciprofloxacin. He is amendable to proceed with epi fix application today. He is scheduled to see vascular surgeon, September 22, 2019. Progress of Wound: improving - Physical Exam Vital Signs Temp Pulse Resp BP 97 F L 69 20 H 179/92 H 09/08/19 08:34 09/08/19 08:34 09/08/19 08:34 09/08/19 08:34 General: Alert, Oriented x3, Cooperative, No apparent distress Extremities: No cyanosis, Capillary Refill Less than 3 Seconds, No Calf Tenderness, Diminished Peripheral Pulses, Edema Skin: Ulcer/ Wound - No purulence, erythema, streaking, odor, infection. There is continued base granular progression with peripheral epithelialization. The quality is improving Wound Measurements and Assessment WC - Nurse 1 - General Ulcer Measurement Start: 09/01/19 08:27 Freq: Status: Active Protocol: Activity Type Activity Date Activity User E-Sign Co-Sign Detail Recorded Client Recorded Date Recorded By Document 09/08/19 08:34 DL [id number] 09/08/19 08:39 DL 09/08/19 08:34 Wound Center Nurse 1 [Ulcer Assessment] #1 Left Heel -Current Size (cm) - Length 1.2 -Current Size (cm) - Width 1.3 -Current Size (cm) - Depth 1 -Total Square Cm 1.56 -Photo Taken No -Exudate Amt Small -Exudate Type Serosanguineous -Wound Margin Distinct, Outline Attached -Granulation Amt Medium (34-66%) -Granulation Quality Red -Necrosis Amt Medium (34-66%) -Necrotic Tissue Type Adherent Slough -Structure Exposed N/A -Texture (Emily-wound Skin Appearance) Scarring -Moisture (Emily-wound Skin Appearance Maceration ) -Color (Emily-wound Skin Appearance) No Abnormality -Temperature (Emily-wound Skin No Abnormality Appearance) (Pt Warm) -Tenderness on Palpation (Emily-wound No Skin Appearance) -Ulcer Cleansing Wound Cleanser -Foul Odor after Cleansing Yes -Anesthetic Used 4% Lidocaine Solution [Edema Assessment] -Left Calf (cm) 31 -Left Ankle (cm) 20.5 WC - Nurse 2 - General Ulcer CM Notes Start: 09/01/19 08:27 Freq: Status: Active Protocol: Activity Type Activity Date Activity User E-Sign Co-Sign Detail Recorded Client Recorded Date Recorded By Document 09/08/19 08:52 DL [id number] 09/08/19 08:54 DL 09/08/19 08:52 Wound Center Nurse 2 [Procedure/Treatment] #1 Left Heel -Time 08:53 -Correct Patient Yes -Correct Side, Site, Position Yes -Correct Procedure Yes -Procedure Performed Yes -Type of Procedure Debridement -Clinical Debridement Subcutaneous -Post Debridement Size (cm) - Length 1.3 -Post Debridement Size (cm) - Width 1.3 -Post Debridement Size (cm) - Depth 1 -Total Square Cm 1.69 -Wound/Ulcer Outcome Not Healed -Ulcer Cleansing Rinsed/ Irrigated with Saline -Foul Odor after Cleansing No -Bioengineered Tissue Yes -Type of bioengineered Tissue EPIFIX -Expiration Date 04/27/24 -Product Lot Number [id number] -Percent Used 100 -Saline Lot Number [id number] -Bleeding Controlled with Pressure -Offloading Yes -Type of Offloading Knee Walker -Treatment Response Procedure Tolerated Well [See Physician Procedure note for Specifics] Pain Scale: 0-10 Numeric [Pain] -Is Patient Pain Free? Yes Musculoskeletal: No Tenderness to Palpation of Joints or Extremities, Muscle Wasting Neurological: - - Lack of epicritic sensation light touch is consistent with neuropathy status Psych/Mental Status: Normal Affect, Appropriate Debridement Note Post-Debridement Measurements/Treatment WC - Nurse 2 - General Ulcer CM Notes Start: 09/01/19 08:27 Freq: Status: Active Protocol: Activity Type Activity Date Activity User E-Sign Co-Sign Detail Recorded Client Recorded Date Recorded By Document 09/01/19 08:41 JF [id number] 09/01/19 08:43 JF Document 09/08/19 08:52 DL [id number] 09/08/19 08:54 DL 09/01/19 09/08/19 08:41 08:52 Wound Center Nurse 2 #1 Left Heel -Time 08:41 08:53 -Correct Patient Yes Yes -Correct Side, Site, Position Yes Yes -Correct Procedure Yes Yes -Procedure Performed Yes Yes -Type of Procedure Debridement Debridement -Clinical Debridement Subcutaneous Subcutaneous -Post Debridement Size (cm) - Length 1.5 1.3 -Post Debridement Size (cm) - Width 1.6 1.3 -Post Debridement Size (cm) - Depth 1.1 1 -Total Square Cm 2.40 1.69 -Wound/Ulcer Outcome Not Healed Not Healed -Ulcer Cleansing Rinsed/ Rinsed/ Irrigated with Irrigated with Saline Saline -Foul Odor after Cleansing No No -Bioengineered Tissue Yes Yes -Type of bioengineered Tissue EPIFIX EPIFIX -Expiration Date 04/27/24 04/27/24 -Product Lot Number [id number] -Percent Used 100 100 -Saline Lot Number [id number] -Bleeding Controlled with Pressure Pressure -Offloading Yes Yes -Type of Offloading Knee Walker Knee Walker -Treatment Response Procedure Procedure Tolerated Well Tolerated Well Pain Scale: 0-10 Numeric Is Patient Pain Free? Yes Yes Wound debrided: plantar heel Laterality: Left Wound Grade/Stage: plantar heel Type of Debridement: Excisional debridement Anesthesia Used: 5% Lidocaine Gel Depth: in the subcutaneous layer Percentage of wound debrided: 100 Instrument Used: #15 blade Tissue Removed: Fibrous, devitalized subcutaneous, biofilm, slough Severity: Fat Layer Exposed Amount of bleeding with debridement: Mild Bleeding Controlled with: Pressure Patient tolerated procedure well Assessment/Plan Active Problems (Last Reviewed 08/03/19 @ 13:14 by Steffi Mcintosh) PVD (peripheral vascular disease) (Chronic) Type 2 diabetes mellitus with diabetic polyneuropathy (Chronic) Osteomyelitis (Chronic) Chronic ulcer of left foot with fat layer exposed (Chronic) Delayed wound healing (Chronic) Malnutrition (Chronic) Assessment: Left heel ulcer, current bacterial contamination with multiple organisms with previous grade 3 ulcer status with osteomyelitis. Status post operating room Versajet debridement with application of advanced wound healing products including amnio fill epicardial form August 06, 2019. Left Achilles tendon rupture healed. Peripheral vascular disease. Diabetes with neuropathy. Malnutrition. Other comorbidities. Walking difficulty Plan: Patient was examined and evaluated today. I reviewed and discussed his case. His recent surgical site was evaluated. Hyperkeratotic tissue debrided. Subcutaneous excisional debridement was performed as noted in the clinical panel. Recent culture findings discussed with patient. To continue knee roller use at home to aid with compliance. Cultures were obtained after the previous debridement irrigation was performed and it is noted MRSA, E. coli, corynebacterium, and others. I recommend he takes oral ciprofloxacin and doxycycline and this is been completed. It is noted there are no local or systemic signs of illness. He understands these are pathological bacteria that were identified and this needed to be addressed. he has been cleaning with an antimicrobial soap. This is been improving in quality and with suspected reduction of bioburden. I recommend application of advanced wound healing product today, epi-fix. The prior authorization was completed. This is medically necessary for limb salvage. The advanced product I recommend is epi- fix. The indications, benefits, anticipated healing time and management were reviewed. This was applied according to standard protocol. 100% of the product was utilized. This was secured in place with a wound veil and Steri-Strips. A bolster gauze dressing was applied he can keep this intact and clean and dry for the next week. I recommended a shower bag and provided for different locations where she can obtain this. It is noted his noninvasive vascular studies were abnormal again and he has had previous lower extremity ulcers with significant delayed healing. He saw Dr. Beck and angiogram was performed in the past. He has been scheduled for September 22 for reevaluation. I answered all of his questions. We also discussed the treatment option of hyperbaric oxygen therapy because he does have a grade 3 ulcer and prior diagnosis of osteomyelitis. He is not able to come to the wound care center on a daily basis and is not ready to commit to this process. The indications, planned application, anticipated healing time management and benefits and complications were discussed. I answered his questions. We also discussed transitioning him to a palliative care program. He recently had surgical intervention and advanced wound product applied and would like to give that a little bit more time especially because we are dressing is bacterial contamination. He is understanding the wound care plan would like to proceed at this time. To return to the wound healing center 1 week or call sooner if you have any questions or concerns. 2019 [facility] entry-. Reviewed today: He denies pain and his follow-up plan has been established. His medication allergy profile has been reconciled. Reviewed August 18, 2019: He is having a current smoking status and cessation intervention was advised. His blood pressure is 163/94 which is elevated. I recommend he follows up with his primary care physician due to associated risk factors. He is advised to maintain appropriate activity and diet as well. He does have an advanced care plan on file. His pneumococcal influenza immunization status was also reviewed.
[2019-09-22 11:31] VITALS: BP 143/78; PULSE 79; RESP 18; TEMP 36.6; BMI 28.4
--- NOTE | 2019-09-22 23:36 | PCM.WC.PN ---
(1) Chronic ulcer of left foot with fat layer exposed Status: Chronic Current Visit: Yes Code(s): L97.522 - Non-pressure chronic ulcer of other part of left foot with fat layer exposed (2) PVD (peripheral vascular disease) Status: Chronic Current Visit: Yes Code(s): I73.9 - Peripheral vascular disease, unspecified (3) Type 2 diabetes mellitus with diabetic polyneuropathy Status: Chronic Current Visit: Yes Code(s): E11.42 - Type 2 diabetes mellitus with diabetic polyneuropathy (4) Osteomyelitis Status: Chronic Current Visit: Yes Qualifiers: Code(s): M86.9 - Osteomyelitis, unspecified (5) Delayed wound healing Status: Chronic Current Visit: Yes Code(s): T14.8XXD - Other injury of unspecified body region, subsequent encounter (6) Malnutrition Status: Chronic Current Visit: Yes Code(s): E46 - Unspecified protein-calorie malnutrition Type of Wound Date of Service: 09/22/19 Chief Complaint: Left heel ulcer History of Wound: This 74-year-old male with multiple comorbidities is seen today for left plantar heel ulcer. He is status post Versajet operating room debridement with application of advanced wound healing product including amnio fill and epi cord performed. The surgery was performed on August 06, 2019. He continues to remain nonweightbearing. He had vascular surgery intervention performed recently with Dr. Beck. He is with his neighbor today. He defers additional advanced treatment such as hyperbaric oxygen. He is unable to transport on his own without assistance. He is currently ambulating with the assistance of a knee scooter. He denies fever, chill, nausea, vomiting, loss of appetite, or diarrhea. He has completed a course of doxycycline and ciprofloxacin for his left foot infection. He is scheduled to see vascular surgeon, September 22, 2019. He was seen earlier today and additional testing and intervention is planned to see if we can obtain better perfusion to this limb that is experiencing delayed healing. There is also noted he was recently hospitalized for bacterial gastric enteritis and he is completing antibiotic course for treatment of this. Progress of Wound: Stable - Physical Exam Vital Signs Temp Pulse Resp BP 97.8 F 79 18 143/78 H 09/22/19 11:31 09/22/19 11:31 09/22/19 11:31 09/22/19 11:31 General: Alert, Oriented x3, Cooperative, No apparent distress Extremities: No cyanosis, Capillary Refill Less than 3 Seconds, No Calf Tenderness, Diminished Peripheral Pulses, Edema Skin: Ulcer/ Wound - No purulence, erythema, string, odor, infection. The ulcer bed is granular. His adjacent skin is atrophic and hairless Wound Measurements and Assessment FINA - Nurse 1 - General Ulcer Measurement Start: 09/01/19 08:27 Freq: Status: Active Protocol: Activity Type Activity Date Activity User E-Sign Co-Sign Detail Recorded Client Recorded Date Recorded By Document 09/22/19 11:31 DV [id number] 09/22/19 11:34 DV 09/22/19 11:31 Wound Center Nurse 1 [Ulcer Assessment] #1 Left Heel -Combined with other wound No -Current Size (cm) - Length 1.5 -Current Size (cm) - Width 1.5 -Current Size (cm) - Depth 0.7 -Total Square Cm 2.25 -Photo Taken No -Epithelialization None Present -Tunneling No -Undermining/Tunneling Yes -Undermining/Tunneling Starts (O' 5 clock) -Undermining/Tunneling Ends (O'clock) 7 -Maximum Distance (cm) 0.6 -Circular Undermining No -Classification - Thickness Full Thickness without Exposed Support Structure -Exudate Amt Medium -Exudate Type Serous -Wound Margin Indistinct, Non -Visible -Granulation Amt None Present (0 %) -Granulation Quality N/A -Slough/Fibrin Yes -Necrosis Amt Large (67-100%) -Necrotic Tissue Type Adherent Slough -Structure Exposed None/Limited to Skin Breakdown -Texture (Emily-wound Skin Appearance) Assessed, Scarring -Moisture (Emily-wound Skin Appearance Assessed, ) Weeping -Color (Emily-wound Skin Appearance) No Abnormality, Assessed -Temperature (Emily-wound Skin No Abnormality Appearance) (Pt Warm) -Tenderness on Palpation (Emily-wound No Skin Appearance) -Ulcer Cleansing Rinsed/ Irrigated with Saline -Foul Odor after Cleansing No -Anesthetic Used 4% Lidocaine Solution WC - Nurse 2 - General Ulcer CM Notes Start: 09/01/19 08:27 Freq: Status: Active Protocol: Activity Type Activity Date Activity User E-Sign Co-Sign Detail Recorded Client Recorded Date Recorded By Document 09/22/19 11:46 [id number] 09/22/19 11:48 09/22/19 11:46 Wound Center Nurse 2 [Procedure/Treatment] -Time 11:47 -Correct Patient Yes -Correct Side, Site, Position Yes -Correct Procedure Yes -Procedure Performed Yes -Type of Procedure Debridement -Clinical Debridement Subcutaneous -Post Debridement Size (cm) - Length 1.5 -Post Debridement Size (cm) - Width 1.6 -Post Debridement Size (cm) - Depth 0.8 -Total Square Cm 2.40 -Wound/Ulcer Outcome Not Healed -Ulcer Cleansing Rinsed/ Irrigated with Saline -Foul Odor after Cleansing No -Bioengineered Tissue No -Bleeding Controlled with Pressure -Offloading Yes -Type of Offloading Knee Walker -Treatment Response Procedure Tolerated Well [See Physician Procedure note for Specifics] Pain Scale: 0-10 Numeric [Pain] -Is Patient Pain Free? Yes Musculoskeletal: No Tenderness to Palpation of Joints or Extremities, Muscle Wasting, - - No fluctuance or bogginess on palpation. No probe to bone today Neurological: - - Lack of normal epicritic sensation light touch consistent with neuropathy status Psych/Mental Status: Normal Affect, Appropriate Debridement Note Post-Debridement Measurements/Treatment WC - Nurse 2 - General Ulcer CM Notes Start: 09/01/19 08:27 Freq: Status: Active Protocol: Activity Type Activity Date Activity User E-Sign Co-Sign Detail Recorded Client Recorded Date Recorded By Document 09/01/19 08:41 [id number] 09/01/19 08:43 JF Document 09/08/19 08:52 DL [id number] 09/08/19 08:54 DL Document 09/22/19 11:46 [id number] 09/22/19 11:48 09/01/19 09/08/19 09/22/19 08:41 08:52 11:46 Wound Center Nurse 2 #1 Left Heel -Time 08:41 08:53 11:47 -Correct Patient Yes Yes Yes -Correct Side, Site, Position Yes Yes Yes -Correct Procedure Yes Yes Yes -Procedure Performed Yes Yes Yes -Type of Procedure Debridement Debridement Debridement -Clinical Debridement Subcutaneous Subcutaneous Subcutaneous -Post Debridement Size (cm) - Length 1.5 1.3 1.5 -Post Debridement Size (cm) - Width 1.6 1.3 1.6 -Post Debridement Size (cm) - Depth 1.1 1 0.8 -Total Square Cm 2.40 1.69 2.40 -Wound/Ulcer Outcome Not Healed Not Healed Not Healed -Ulcer Cleansing Rinsed/ Rinsed/ Rinsed/ Irrigated with Irrigated with Irrigated with Saline Saline Saline -Foul Odor after Cleansing No No No -Bioengineered Tissue Yes Yes No -Type of bioengineered Tissue EPIFIX EPIFIX -Expiration Date 04/27/24 04/27/24 -Product Lot Number [id number] -Percent Used 100 100 -Saline Lot Number [id number] -Bleeding Controlled with Pressure Pressure Pressure -Offloading Yes Yes Yes -Type of Offloading Knee Walker Knee Walker Knee Walker -Treatment Response Procedure Procedure Procedure Tolerated Well Tolerated Well Tolerated Well Pain Scale: 0-10 Numeric Is Patient Pain Free? Yes Yes Yes Wound debrided: plantar heel Laterality: Left - g Wound Grade/Stage: grade 3 Type of Debridement: Excisional debridement Anesthesia Used: 5% Lidocaine Gel Depth: in the subcutaneous layer Percentage of wound debrided: 100 Instrument Used: #15 blade Tissue Removed: fibrous, devitalized subcutaneous, biofilm, slough Severity: Fat Layer Exposed Amount of bleeding with debridement: Mild Bleeding Controlled with: Pressure Patient tolerated procedure well Assessment/Plan Active Problems (Last Reviewed 09/15/19 @ 08:[address] Td Bronson MD) PVD (peripheral vascular disease) (Chronic) Left foot infection (Acute) Type 2 diabetes mellitus with diabetic polyneuropathy (Chronic) Osteomyelitis (Chronic) Chronic ulcer of left foot with fat layer exposed (Chronic) Delayed wound healing (Chronic) Malnutrition (Chronic) Assessment: Left heel ulcer, current bacterial contamination with multiple organisms with previous grade 3 ulcer status with osteomyelitis. Status post operating room Versajet debridement with application of advanced wound healing products including amnio fill epicardial form August 06, 2019. Left Achilles tendon rupture healed. Peripheral vascular disease. Diabetes with neuropathy. Malnutrition. Other comorbidities. Walking difficulty Plan: Patient was examined and evaluated today. I reviewed and discussed his case. His recent surgical site was evaluated. Hyperkeratotic tissue debrided. Subcutaneous excisional debridement was performed as noted in the clinical panel. Recent culture findings discussed with patient. To continue knee roller use at home to aid with compliance. Cultures were obtained after the previous debridement irrigation was performed and it is noted MRSA, E. coli, corynebacterium, and others. I recommend he takes oral ciprofloxacin and doxycycline and this is been completed. To complete antibiotics as recommended for treatment of bacterial gastric enteritis. It is noted there are no local or systemic signs of illness of the left lower extremity. He understands these are pathological bacteria that were identified and this needed to be addressed. he has been cleaning with an antimicrobial soap. This is been improving in quality and with suspected reduction of bioburden. I recommend application of advanced wound healing product today, epi-fix. The prior authorization was completed. This is medically necessary for limb salvage. The advanced product I recommend is epi-fix. The indications, benefits, anticipated healing time and management were reviewed. This was applied according to standard protocol. 100% of the product was utilized. This was secured in place with a wound veil and Steri-Strips. A bolster gauze dressing was applied he can keep this intact and clean and dry for the next week. I recommended a shower bag and provided for different locations where she can obtain this. It is noted his noninvasive vascular studies were abnormal again and he has had previous lower extremity ulcers with significant delayed healing. He saw Dr. Beck and angiogram was performed in the past. He has been scheduled for September 22 for reevaluation. This was completed this morning and additional testing and intervention is recommended to improve perfusion. I recommended he proceed if Dr. Beck recommends. We also discussed the treatment option of hyperbaric oxygen therapy because he does have a grade 3 ulcer and prior diagnosis of osteomyelitis. He is not able to come to the wound care center on a daily basis and is not ready to commit to this process. The indications, planned application, anticipated healing time management and benefits and complications were discussed. I answered his questions. We also discussed transitioning him to a palliative care program. He recently had surgical intervention and advanced wound product applied and would like to give that a little bit more time especially because we are dressing is bacterial contamination. He is understanding the wound care plan would like to proceed at this time. To return to the wound healing center 1 week or call sooner if you have any questions or concerns. 2019 [facility] entry-. Reviewed today: He denies pain and his follow-up plan has been established. His medication allergy profile has been reconciled. Reviewed August 18, 2019: He is having a current smoking status and cessation intervention was advised. His blood pressure is 163/94 which is elevated. I recommend he follows up with his primary care physician due to associated risk factors. He is advised to maintain appropriate activity and diet as well. He does have an advanced care plan on file. His pneumococcal influenza immunization status was also reviewed.
== END 2019-09-25 23:59 ==
LOC: WC 11:45
PROVIDERS: Family Provider Family Medicine; PCP Family Medicine; Referring Provider Podiatrist; Visit Provider Podiatrist
DX: E11.621 Type 2 diabetes mellitus with foot ulcer (principal); E11.42 Type 2 diabetes mellitus with diabetic polyneuropathy; E11.51 Type 2 diabetes mellitus with diabetic peripheral angiopathy without gangrene; L97.422 Non-pressure chronic ulcer of left heel and midfoot with fat layer exposed; R26.2 Difficulty in walking, not elsewhere classified; E11.69 Type 2 diabetes mellitus with other specified complication; M86.672 Other chronic osteomyelitis, left ankle and foot
CPT/HCPCS: 11042; 15275; Q4186

== ENCOUNTER 2019-10-06 06:39 | Day surgery (SDC) | payer MEDICARE, SELFPAY ==
[2019-09-23 13:05] VITALS: BMI 27.7
[2019-09-29 08:24] VITALS: BMI 27.7
[2019-10-05 08:15] VITALS: BMI 27.3
--- NOTE | 2019-10-06 08:27 | PCM.OPRPT ---
Report of Operation Date of Procedure: 10/06/19 Pre-Operative Diagnosis: PAD with nonhealing wound Post-Operative Diagnosis: Same Surgery/Procedure Performed:: 1. Ultrasound-guided access retrograde right common femoral artery. 2. Left lower extremity angiogram with catheter placed past the third order into the anterior tibial artery. 3. Balloon angioplasty of the anterior tibial artery into the popliteal with a 3 x 220 balloon. 4. Closure with Mynx Type of Anesthesia:: Sedation,Conscious Description of Procedure: Patient brought to the Tipping Machine Operator. Underwent appropriate timeout consent. Underwent sedation. Prepped and draped in a sterile fashion. We did ultrasound access retrograde right common femoral artery. Gave 5000 units of heparin. We got up and over the bifurcation and did an angiogram from the left external iliac artery. This showed the common femoral, the profunda, and the SFA widely patent. Put a catheter down the SFA and imaged from there. This showed the rest of the SFA through the popliteal widely patent. Anterior tibial artery occluded after its takeoff recanalized in the distal calf. Tibial peroneal trunk and posterior tibial artery was occluded. There is collateral flow via a large collateral filling the peroneal with flow down to the ankle. We put a stiff Glidewire brought in a long 6 [place] sheath. Using a Glidewire quick cross we got through the anterior tibial occlusion confirmed in the [place] vessel. We then put an 014 wire and ballooned with a 3 x 220 balloon from the popliteal through the anterior tibial for over 3 minutes. We then advanced the balloon further down the anterior tibial artery and balloon that again for 3 minutes segment. Completion angiogram was markedly improved with great flow through the anterior tibial artery into the dorsalis pedis. Still the large collateral filling of the peroneal down. We put a 035 wire back and removed the sheath put in a short a 6 [place] sheath. We deployed a minx with good hemostasis. Brought to recovery in stable condition. Sedation: This 74-year-old gentleman underwent moderate sedation given by Dr. Kike Beck. He was monitored EKG blood pressure and pulse ox for over the 30 minutes of the procedure. See the EMR for the complete record.
== END 2019-10-06 12:43 | disposition home or self-care (01) ==
LOC: CLSP 06:40
PROVIDERS: PCP Family Medicine; Referring Provider Surgery Vascular Surgery; Visit Provider Surgery Vascular Surgery
DX: E11.51 Type 2 diabetes mellitus with diabetic peripheral angiopathy without gangrene (principal); L97.429 Non-pressure chronic ulcer of left heel and midfoot with unspecified severity; I70.244 Atherosclerosis of native arteries of left leg with ulceration of heel and midfoot; I10 Essential (primary) hypertension; E78.00 Pure hypercholesterolemia, unspecified; M19.90 Unspecified osteoarthritis, unspecified site; Z79.82 Long term (current) use of aspirin; Z79.84 Long term (current) use of oral hypoglycemic drugs; Z79.899 Other long term (current) drug therapy
CPT/HCPCS: 36245; 37228; 75710; 76937; 99152; 99153; C1760; J7040; Q9967; C1725; C1769; C1887; C1894

== ENCOUNTER 2019-10-20 08:00 | Outpatient (RCR) | payer MEDICARE, SELFPAY ==
[2019-09-23 13:05] VITALS: BMI 27.7
[2019-09-26 00:28] VITALS: BP 143/78; PULSE 79; RESP 18; TEMP 36.6
[2019-09-29 08:24] VITALS: BP 158/80; PULSE 76; RESP 20; TEMP 36.8; BMI 27.7
--- NOTE | 2019-09-29 10:33 | PN.PCM_ITS ---
(1) Chronic ulcer of left foot with fat layer exposed Status: Chronic Code(s): L97.522 - Non-pressure chronic ulcer of other part of left foot with fat layer exposed (2) PVD (peripheral vascular disease) Status: Chronic Code(s): I73.9 - Peripheral vascular disease, unspecified (3) Type 2 diabetes mellitus with diabetic polyneuropathy Status: Chronic Code(s): E11.42 - Type 2 diabetes mellitus with diabetic polyneuropathy (4) Walking difficulty due to ankle and foot Status: Chronic Code(s): R26.2 - Difficulty in walking, not elsewhere classified (5) Delayed wound healing Status: Chronic Code(s): T14.8XXD - Other injury of unspecified body region, subsequent encounter (6) Malnutrition Status: Chronic Code(s): E46 - Unspecified protein-calorie malnutrition Type of Wound Date of Service: 09/29/19 Chief Complaint: Left heel ulcer History of Wound: This 74-year-old male with multiple comorbidities is seen today for left plantar heel ulcer. He is status post Versajet operating room debridement with application of advanced wound healing product including amnio fill and epi cord performed. The surgery was performed on August 06, 2019. He continues to remain nonweightbearing. He had vascular surgery intervention performed recently with Dr. Beck. He is with his neighbor today. He defers additional advanced treatment such as hyperbaric oxygen. He is unable to transport on his own without assistance. He is currently ambulating with the assistance of a knee scooter. He denies fever, chill, nausea, vomiting, loss of appetite, or diarrhea. He has completed a course of doxycycline and ciprofloxacin for his left foot infection. He is scheduled to see vascular surgeon, September 22, 2019. He has additional intervention planned to see if we can obtain better perfusion to this limb that is experiencing delayed healing. Progress of Wound: Stable - Physical Exam Vital Signs Temp Pulse Resp BP 98.2 F 76 20 H 158/80 H 09/29/19 08:24 09/29/19 08:24 09/29/19 08:24 09/29/19 08:24 General: Alert, Oriented x3, Cooperative, No apparent distress Extremities: No cyanosis, Capillary Refill Less than 3 Seconds, No Calf [place]ness, Diminished Peripheral Pulses, Edema Skin: Ulcer/ Wound - no purulence, no erythema, no streaking, no infection. skin is thin and atrophic Wound Measurements and Assessment WC - Nurse 1 - General Ulcer Measurement Start: 09/29/19 08:24 Freq: Status: Active Protocol: Activity Type Activity Date Activity User E-Sign Co-Sign Detail Recorded Client Recorded Date Recorded By Document 09/29/19 08:24 DL [id number] 09/29/19 08:31 DL 09/29/19 08:24 Wound Center Nurse 1 [Ulcer Assessment] #1 Left Heel -Current Size (cm) - Length 1 -Current Size (cm) - Width 1.2 -Current Size (cm) - Depth 1 -Total Square Cm 1.2 -Undermining/Tunneling Starts (O' 7 clock) -Undermining/Tunneling Ends (O'clock) 2 -Maximum Distance (cm) 0.7 -Exudate Amt Medium -Exudate Type Serosanguineous -Wound Margin Thickened -Granulation Amt Large (67-100%) -Granulation Quality Red -Necrosis Amt Small (1-33%) -Necrotic Tissue Type Adherent Slough -Structure Exposed N/A -Texture (Emily-wound Skin Appearance) Callus,Scarring -Moisture (Emily-wound Skin Appearance Dry/Scaly ) -Color (Emily-wound Skin Appearance) No Abnormality -Temperature (Emily-wound Skin No Abnormality Appearance) (Pt Warm) -Tenderness on Palpation (Emily-wound No Skin Appearance) -Ulcer Cleansing Wound Cleanser -Foul Odor after Cleansing No -Anesthetic Used 4% Lidocaine Solution [Edema Assessment] -Left Calf (cm) 33 -Left Ankle (cm) 20.2 WC - Nurse 2 - General Ulcer CM Notes Start: 09/29/19 08:24 Freq: Status: Active Protocol: Activity Type Activity Date Activity User E-Sign Co-Sign Detail Recorded Client Recorded Date Recorded By Document 09/29/19 08:49 GAGE [id number] 09/29/19 08:50 GAGE 09/29/19 08:49 Wound Center Nurse 2 [Procedure/Treatment] #1 Left Heel -Time 08:49 -Correct Patient Yes -Correct Side, Site, Position Yes -Correct Procedure Yes -Procedure Performed Yes -Type of Procedure Debridement -Clinical Debridement Subcutaneous -Post Debridement Size (cm) - Length 1.2 -Post Debridement Size (cm) - Width 1.2 -Post Debridement Size (cm) - Depth 1.0 -Total Square Cm 1.44 -Wound/Ulcer Outcome Not Healed -Ulcer Cleansing Rinsed/ Irrigated with Saline -Foul Odor after Cleansing No -Bioengineered Tissue No -Bleeding Controlled with Pressure -Offloading Yes -Type of Offloading Knee Walker -Treatment Response Procedure Tolerated Well [See Physician Procedure note for Specifics] Pain Scale: 0-10 Numeric [Pain] -Is Patient Pain Free? Yes Musculoskeletal: No Tenderness to Palpation of Joints or Extremities, Muscle Wasting Neurological: - - lack of epicritic sensation via light touch Psych/Mental Status: Normal Affect, Appropriate Debridement Note Post-Debridement Measurements/Treatment WC - Nurse 2 - General Ulcer CM Notes Start: 09/29/19 08:24 Freq: Status: Active Protocol: Activity Type Activity Date Activity User E-Sign Co-Sign Detail Recorded Client Recorded Date Recorded By Document 09/29/19 08:49 GAGE [id number] 09/29/19 08:50 GAGE 09/29/19 08:49 Wound Center Nurse 2 #1 Left Heel -Time 08:49 -Correct Patient Yes -Correct Side, Site, Position Yes -Correct Procedure Yes -Procedure Performed Yes -Type of Procedure Debridement -Clinical Debridement Subcutaneous -Post Debridement Size (cm) - Length 1.2 -Post Debridement Size (cm) - Width 1.2 -Post Debridement Size (cm) - Depth 1.0 -Total Square Cm 1.44 -Wound/Ulcer Outcome Not Healed -Ulcer Cleansing Rinsed/ Irrigated with Saline -Foul Odor after Cleansing No -Bioengineered Tissue No -Bleeding Controlled with Pressure -Offloading Yes -Type of Offloading Knee Walker -Treatment Response Procedure Tolerated Well Pain Scale: 0-10 Numeric Is Patient Pain Free? Yes Wound debrided: plantar heel Laterality: Left Wound Grade/Stage: grade 3 Type of Debridement: Excisional debridement Anesthesia Used: 5% Lidocaine Gel Depth: in the subcutaneous layer Percentage of wound debrided: 100 Instrument Used: #15 blade Tissue Removed: fibrous, devitalized subcuteaneous, biofilm, slough Severity: Fat Layer Exposed Amount of bleeding with debridement: Mild Bleeding Controlled with: Pressure Patient tolerated procedure well Assessment/Plan Assessment: Left heel ulcer, current bacterial contamination with multiple organisms with previous grade 3 ulcer status with osteomyelitis. Status post operating room Versajet debridement with application of advanced wound healing products including amnio fill epicardial form August 06, 2019. Left Achilles tendon rupture healed. Peripheral vascular disease. Diabetes with neuropathy. Malnutrition. Other comorbidities. Walking difficulty Plan: Patient was examined and evaluated today. I reviewed and discussed his case. His recent surgical site was evaluated. Hyperkeratotic tissue debrided. Subcutaneous excisional debridement was performed as noted in the clinical panel. Recent culture findings discussed with patient. To continue knee roller use at home to aid with compliance. Cultures were obtained after the previous debridement irrigation was performed and it is noted MRSA, E. coli, corynebacterium, and others. I recommend he takes oral ciprofloxacin and doxycycline and this is been completed. To complete antibiotics as recommended for treatment of bacterial gastric enteritis. It is noted there are no local or systemic signs of illness of the left lower extremity. He understands these are pathological bacteria that were identified and this needed to be addressed. he has been cleaning with an antimicrobial soap. This is been improving in quality and with suspected reduction of bioburden. To continue daily dressing change with [employer]. I recommended a shower bag and provided for different locations where she can obtain this. It is noted his noninvasive vascular s tudies were abnormal again and he has had previous lower extremity ulcers with significant delayed healing. He saw Dr. Beck and angiogram was performed in the past. He has been scheduled for September 22 for reevaluation. This was completed and additional testing and intervention is recommended to improve perfusion. I recommended he proceed if Dr. Beck recommends. We also discussed the treatment option of hyperbaric oxygen therapy because he does have a grade 3 ulcer and prior diagnosis of osteomyelitis. He is not able to come to the wound care center on a daily basis and is not ready to commit to this process. The indications, planned application, anticipated healing time management and benefits and complications were discussed. I answered his questions. We also discussed transitioning him to a palliative care program. He recently had surgical intervention and advanced wound product applied and would like to give that a little bit more time especially because we are dress ing is bacterial contamination. He is understanding the wound care plan would like to proceed at this time. To return to the wound healing center 1 week or call sooner if you have any questions or concerns. 2019 [facility] entry-. Reviewed today: He denies pain and his follow-up plan has been established. His medication allergy profile has been reconciled. Reviewed August 18, 2019: He is having a current smoking status and cessation intervention was advised. His blood pressure is 163/94 which is elevated. I recommend he follows up with his primary care physician due to associated risk factors. He is advised to maintain appropriate activity and diet as well. He does have an advanced care plan on file. His pneumococcal influenza immunization status was also reviewed.
[2019-10-13 08:40] VITALS: BP 142/84; PULSE 76; RESP 18; TEMP 36.8; BMI 27.7
--- NOTE | 2019-10-13 10:48 | PCM.WC.PN ---
(1) Chronic ulcer of left foot with fat layer exposed Status: Chronic Current Visit: Yes Code(s): L97.522 - Non-pressure chronic ulcer of other part of left foot with fat layer exposed (2) PVD (peripheral vascular disease) Status: Chronic Current Visit: Yes Code(s): I73.9 - Peripheral vascular disease, unspecified (3) Type 2 diabetes mellitus with diabetic polyneuropathy Status: Chronic Current Visit: Yes Code(s): E11.42 - Type 2 diabetes mellitus with diabetic polyneuropathy (4) Walking difficulty due to ankle and foot Status: Chronic Current Visit: Yes Code(s): R26.2 - Difficulty in walking, not elsewhere classified (5) Delayed wound healing Status: Chronic Current Visit: Yes Code(s): T14.8XXD - Other injury of unspecified body region, subsequent encounter (6) Malnutrition Status: Chronic Current Visit: Yes Code(s): E46 - Unspecified protein-calorie malnutrition Type of Wound Date of Service: 10/13/19 Chief Complaint: Left heel ulcer History of Wound: This 74-year-old male with multiple comorbidities is seen today for left plantar heel ulcer. He continues to remain nonweightbearing. He had vascular surgery intervention performed recently with Dr. Beck, 1 week ago. He defers additional advanced treatment such as hyperbaric oxygen. He is unable to transport on his own without assistance. He is currently ambulating with the assistance of a knee scooter. He denies fever, chill, nausea, vomiting, loss of appetite, or diarrhea. He had C. difficile previously and completed a course of oral antibiotics. He is also concerned that he has a new opening to the inner side of his heel with some mild drainage. This is a site where he had a prior ulcer. He denies trauma. He noticed this during dressing change last week. Progress of Wound: Improving quality - Physical Exam Vital Signs Temp Pulse Resp BP 98.2 F 76 18 142/84 H 10/13/19 08:40 10/13/19 08:40 10/13/19 08:40 10/13/19 08:40 General: Alert, Oriented x3, Cooperative Extremities: No cyanosis, Capillary Refill Less than 3 Seconds, No Calf Tenderness, Diminished Peripheral Pulses, Edema Skin: Ulcer/ Wound - No purulence, erythema, string, odor, infection. There is some ecchymosis and some hemorrhagic tissue noted to the medial ankle but there is no kailey skin discontinuity, drainage, fluctuance, or bogginess to this new site. This will be monitored close. The plantar ulcer does have a granular bed with peripheral callus noted. There is no exposed periosteum or muscle tissue today. There is no purulence or necrosis., - - His adjacent skin is hairless and atrophic Wound Measurements and Assessment WC - Nurse 1 - General Ulcer Measurement Start: 09/29/19 08:24 Freq: Status: Active Protocol: Activity Type Activity Date Activity User E-Sign Co-Sign Detail Recorded Client Recorded Date Recorded By Document 10/13/19 08:40 RB [id number] 10/13/19 08:43 RB 10/13/19 08:40 Wound Center Nurse 1 [Ulcer Assessment] #1 Left Heel -Combined with other wound No -Current Size (cm) - Length 1.4 -Current Size (cm) - Width 1.5 -Current Size (cm) - Depth 0.2 -Total Square Cm 2.10 -Tunneling No -Undermining/Tunneling No -Circular Undermining No -Exudate Amt Small -Exudate Type Serosanguineous -Wound Margin Thickened -Granulation Amt Medium (34-66%) -Granulation Quality [place],Red -Slough/Fibrin Yes -Necrosis Amt Small (1-33%) -Necrotic Tissue Type Adherent Slough -Structure Exposed N/A -Texture (Emily-wound Skin Appearance) Callus -Moisture (Emily-wound Skin Appearance Assessed ) -Color (Emily-wound Skin Appearance) Assessed -Temperature (Emily-wound Skin No Abnormality Appearance) (Pt Warm) -Tenderness on Palpation (Emily-wound No Skin Appearance) -Ulcer Cleansing Wound Cleanser -Foul Odor after Cleansing No -Anesthetic Used 5% Lidocaine Gel WC - Nurse 2 - General Ulcer CM Notes Start: 09/29/19 08:24 Freq: Status: Active Protocol: Activity Type Activity Date Activity User E-Sign Co-Sign Detail Recorded Client Recorded Date Recorded By Document 10/13/19 08:51 [id number] 10/13/19 08:55 GAGE 10/13/19 08:51 Wound Center Nurse 2 [Procedure/Treatment] -Time 08:51 -Correct Patient Yes -Correct Side, Site, Position Yes -Correct Procedure Yes -Procedure Performed Yes -Type of Procedure Debridement -Clinical Debridement Subcutaneous -Post Debridement Size (cm) - Length 1.4 -Post Debridement Size (cm) - Width 1.4 -Post Debridement Size (cm) - Depth 1.0 -Total Square Cm 1.96 -Wound/Ulcer Outcome Not Healed -Ulcer Cleansing Rinsed/ Irrigated with Saline -Foul Odor after Cleansing No -Bioengineered Tissue No -Bleeding Controlled with Pressure -Offloading Yes -Type of Offloading Total Contact Cast (TCC) -Treatment Response Procedure Tolerated Well [See Physician Procedure note for Specifics] Pain Scale: 0-10 Numeric [Pain] -Is Patient Pain Free? Yes Musculoskeletal: No Tenderness to Palpation of Joints or Extremities, Muscle Wasting Neurological: - - Lack of normal epicritic sensation light touch is consistent with neuropathy status Psych/Mental Status: Normal Affect, Appropriate Debridement Note Post-Debridement Measurements/Treatment WC - Nurse 2 - General Ulcer CM Notes Start: 09/29/19 08:24 Freq: Status: Active Protocol: Activity Type Activity Date Activity User E-Sign Co-Sign Detail Recorded Client Recorded Date Recorded By Document 09/29/19 08:49 [id number] 09/29/19 08:50 Document 10/13/19 08:51 [id number] 10/13/19 08:55 09/29/19 10/13/19 08:49 08:51 Wound Center Nurse 2 #1 Left Heel -Time 08:49 08:51 -Correct Patient Yes Yes -Correct Side, Site, Position Yes Yes -Correct Procedure Yes Yes -Procedure Performed Yes Yes -Type of Procedure Debridement Debridement -Clinical Debridement Subcutaneous Subcutaneous -Post Debridement Size (cm) - Length 1.2 1.4 -Post Debridement Size (cm) - Width 1.2 1.4 -Post Debridement Size (cm) - Depth 1.0 1.0 -Total Square Cm 1.44 1.96 -Wound/Ulcer Outcome Not Healed Not Healed -Ulcer Cleansing Rinsed/ Rinsed/ Irrigated with Irrigated with Saline Saline -Foul Odor after Cleansing No No -Bioengineered Tissue No No -Bleeding Controlled with Pressure Pressure -Offloading Yes Yes -Type of Offloading Knee Walker Total Contact Cast (TCC) -Treatment Response Procedure Procedure Tolerated Well Tolerated Well Pain Scale: 0-10 Numeric Is Patient Pain Free? Yes Yes Wound debrided: plantar heel Laterality: Left Wound Grade/Stage: grade 3 Type of Debridement: Excisional debridement Anesthesia Used: 5% Lidocaine Gel Depth: in the subcutaneous layer Percentage of wound debrided: 100 Instrument Used: #15 blade Tissue Removed: fibrous, devitalized subcutaneous, biofilm, slough Severity: Fat Layer Exposed - Patient Amount of bleeding with debridement: Mild Bleeding Controlled with: Pressure Patient tolerated procedure well Assessment/Plan Active Problems (Last Reviewed 09/15/19 @ 08:[address] Td Bronson MD) PVD (peripheral vascular disease) (Chronic) Type 2 diabetes mellitus with diabetic polyneuropathy (Chronic) Walking difficulty due to ankle and foot (Chronic) Chronic ulcer of left foot with fat layer exposed (Chronic) Delayed wound healing (Chronic) Malnutrition (Chronic) Assessment: Left heel ulcer, current bacterial contamination with multiple organisms with previous grade 3 ulcer status with osteomyelitis. Status post operating room Versajet debridement with application of advanced wound healing products including amnio fill epicardial form August 06, 2019. Left Achilles tendon rupture healed. Peripheral vascular disease. Diabetes with neuropathy. Malnutrition. Other comorbidities. Walking difficulty Plan: Patient was examined and evaluated today. I reviewed and discussed his case. His recent surgical site was evaluated. Hyperkeratotic tissue debrided. Subcutaneous excisional debridement was performed as noted in the clinical panel. Recent culture findings discussed with patient. To continue knee roller use at home to aid with compliance. Cultures were obtained after the previous debridement irrigation was performed and it is noted MRSA, E. coli, corynebacterium, and others. I recommend he takes oral ciprofloxacin and doxycycline and this is been completed. To complete antibiotics as recommended for treatment of bacterial gastric enteritis. It is noted there are no local or systemic signs of illness of the left lower extremity. He understands these are pathological bacteria that were identified and this needed to be addressed. he has been cleaning with an antimicrobial soap. This is been improving in quality and with suspected reduction of bioburden. To continue daily dressing change with [employer]. I recommended a shower bag and provided for different locations where she can obtain this. It is noted his noninvasive vascular studies were abnormal again and he has had previous lower extremity ulcers with significant delayed healing. He saw Dr. Beck and angiogram was performed in the past. He has been scheduled for September 22 for reevaluation. This was completed and additional testing and intervention is recommended to improve perfusion. I recommended he proceed if Dr. Beck recommends. We also discussed the treatment option of hyperbaric oxygen therapy because he does have a grade 3 ulcer and prior diagnosis of osteomyelitis. He is not able to come to the wound care center on a daily basis and is not ready to commit to this process. The indications, planned application, anticipated healing time management and benefits and complications were discussed. I answered his questions. We also discussed transitioning him to a palliative care program. He recently had surgical intervention and advanced wound product applied and would like to give that a little bit more time especially because we are dressing is bacterial contamination. He is understanding the wound care plan would like to proceed at this time. To return to the wound healing center 1 week or call sooner if you have any questions or concerns. 2020 [facility] [place] entry-. Reviewed today: He denies pain and his follow-up plan has been established. His medication allergy profile has been reconciled. Reviewed August 18, 2019: He is having a current smoking status and cessation intervention was advised. His blood pressure is 163/94 which is elevated. I recommend he follows up with his primary care physician due to associated risk factors. He is advised to maintain appropriate activity and diet as well. He does have an advanced care plan on file. His pneumococcal influenza immunization status was also reviewed.
--- NOTE | 2019-10-13 12:18 | PN.PCM_ITS ---
(1) Chronic ulcer of left foot with fat layer exposed Status: Chronic Current Visit: Yes Code(s): L97.522 - Non-pressure chronic ulcer of other part of left foot with fat layer exposed (2) PVD (peripheral vascular disease) Status: Chronic Current Visit: Yes Code(s): I73.9 - Peripheral vascular disease, unspecified (3) Type 2 diabetes mellitus with diabetic polyneuropathy Status: Chronic Current Visit: Yes Code(s): E11.42 - Type 2 diabetes mellitus with diabetic polyneuropathy (4) Walking difficulty due to ankle and foot Status: Chronic Current Visit: Yes Code(s): R26.2 - Difficulty in walking, not elsewhere classified (5) Delayed wound healing Status: Chronic Current Visit: Yes Code(s): T14.8XXD - Other injury of unspecified body region, subsequent encounter (6) Malnutrition Status: Chronic Current Visit: Yes Code(s): E46 - Unspecified protein- calorie malnutrition Type of Wound Date of Service: 10/13/19 Chief Complaint: Left heel ulcer History of Wound: This 74-year-old male with multiple comorbidities is seen today for left plantar heel ulcer. He continues to remain nonweightbearing. He had vascular surgery intervention performed recently with Dr. Beck; 1 week ago. He defers additional advanced treatment such as hyperbaric oxygen. He is unable to transport on his own without assistance. He is currently ambulating with the assistance of a knee scooter. He denies fever, chill, nausea, vomiting, loss of appetite, or diarrhea. He thinks he has returned drainage and a potential wound to the inside of his heel. He reports drainage and denies redness or odor. He noticed this during the dressing change earlier this week. Progress of Wound: Improving quality - Physical Exam Vital Signs Temp Pulse Resp BP 98.2 F 76 18 142/84 H 10/13/19 08:40 10/13/19 08:40 10/13/19 08:40 10/13/19 08:40 General: Alert, Oriented x3, Cooperative, No apparent distress Extremities: No cyanosis, Capillary Refill Less than 3 Seconds, No Calf Tenderness, Diminished Peripheral Pulses, Edema Skin: Ulcer/ Wound - No purulence, erythema, string, odor, infection. Improved granulation tissue to the plantar heel ulcer without exposed periosteum or bone. The adjacent skin is hairless and atrophic. The medial heel skin does have some ecchymosis and evidence of prior sub-hemorrhagic tissue. There is no drainage or open lesion confirmed today. Wound Measurements and Assessment WC - Nurse 1 - General Ulcer Measurement Start: 09/29/19 08:24 Freq: Status: Active Protocol: Activity Type Activity Date Activity User E-Sign Co-Sign Detail Recorded Client Recorded Date Recorded By Document 10/13/19 08:40 RB [id number] 10/13/19 08:43 RB 10/13/19 08:40 Wound Center Nurse 1 [Ulcer Assessment] #1 Left Heel -Combined with other wound No -Current Size (cm) - Length 1.4 -Current Size (cm) - Width 1.5 -Current Size (cm) - Depth 0.2 -Total Square Cm 2.10 -Tunneling No -Undermining/Tunneling No -Circular Undermining No -Exudate Amt Small -Exudate Type Serosanguineous -Wound Margin Thickened -Granulation Amt Medium (34-66%) -Granulation Quality [place],Red -Slough/Fibrin Yes -Necrosis Amt Small (1-33%) -Necrotic Tissue Type Adherent Slough -Structure Exposed N/A -Texture (Emily-wound Skin Appearance) Callus -Moisture (Emily-wound Skin Appearance Assessed ) -Color (Emily-wound Skin Appearance) Assessed -Temperature (Emily-wound Skin No Abnormality Appearance) (Pt Warm) -Tenderness on Palpation (Emily-wound No Skin Appearance) -Ulcer Cleansing Wound Cleanser -Foul Odor after Cleansing No -Anesthetic Used 5% Lidocaine Gel WC - Nurse 2 - General Ulcer CM Notes Start: 09/29/19 08:24 Freq: Status: Active Protocol: Activity Type Activity Date Activity User E-Sign Co-Sign Detail Recorded Client Recorded Date Recorded By Document 10/13/19 08:51 [id number] 10/13/19 08:55 10/13/19 08:51 Wound Center Nurse 2 [Procedure/Treatment] -Time 08:51 -Correct Patient Yes -Correct Side, Site, Position Yes -Correct Procedure Yes -Procedure Performed Yes -Type of Procedure Debridement -Clinical Debridement Subcutaneous -Post Debridement Size (cm) - Length 1.4 -Post Debridement Size (cm) - Width 1.4 -Post Debridement Size (cm) - Depth 1.0 -Total Square Cm 1.96 -Wound/Ulcer Outcome Not Healed -Ulcer Cleansing Rinsed/ Irrigated with Saline -Foul Odor after Cleansing No -Bioengineered Tissue No -Bleeding Controlled with Pressure -Offloading Yes -Type of Offloading Total Contact Cast (TCC) -Treatment Response Procedure Tolerated Well [See Physician Procedure note for Specifics] Pain Scale: 0-10 Numeric [Pain] -Is Patient Pain Free? Yes Musculoskeletal: No Tenderness to Palpation of Joints or Extremities, Muscle Wasting Neurological: - - Lack of normal epicritic sensation light touch is consistent with neuropathy status Psych/Mental Status: Normal Affect, Appropriate Debridement Note Post-Debridement Measurements/Treatment WC - Nurse 2 - General Ulcer CM Notes Start: 09/29/19 08:24 Freq: Status: Active Protocol: Activity Type Activity Date Activity User E-Sign Co-Sign Detail Recorded Client Recorded Date Recorded By Document 09/29/19 08:49 [id number] 09/29/19 08:50 Document 10/13/19 08:51 [id number] 10/13/19 08:55 09/29/19 10/13/19 08:49 08:51 Wound Center Nurse 2 #1 Left Heel -Time 08:49 08:51 -Correct Patient Yes Yes -Correct Side, Site, Position Yes Yes -Correct Procedure Yes Yes -Procedure Performed Yes Yes -Type of Procedure Debridement Debridement -Clinical Debridement Subcutaneous Subcutaneous -Post Debridement Size (cm) - Length 1.2 1.4 -Post Debridement Size (cm) - Width 1.2 1.4 -Post Debridement Size (cm) - Depth 1.0 1.0 -Total Square Cm 1.44 1.96 -Wound/Ulcer Outcome Not Healed Not Healed -Ulcer Cleansing Rinsed/ Rinsed/ Irrigated with Irrigated with Saline Saline -Foul Odor after Cleansing No No -Bioengineered Tissue No No -Bleeding Controlled with Pressure Pressure -Offloading Yes Yes -Type of Offloading Knee Walker Total Contact Cast (TCC) -Treatment Response Procedure Procedure Tolerated Well Tolerated Well Pain Scale: 0-10 Numeric Is Patient Pain Free? Yes Yes Wound debrided: plantar heel Laterality: Left Wound Grade/Stage: grade 3 Type of Debridement: Excisional debridement Anesthesia Used: 5% Lidocaine Gel Depth: in the subcutaneous layer Percentage of wound debrided: 100 Instrument Used: #15 blade Tissue Removed: fibrous, devitalized subcutaneous, biofilm, slough Severity: Fat Layer Exposed Amount of bleeding with debridement: Mild Bleeding Controlled with: Pressure Patient tolerated procedure well Assessment/Plan Active Problems (Last Reviewed 09/15/19 @ 08:[address] Td Bronson MD) PVD (peripheral vascular disease) (Chronic) Type 2 diabetes mellitus with diabetic polyneuropathy (Chronic) Walking difficulty due to ankle and foot (Chronic) Chronic ulcer of left foot with fat layer exposed (Chronic) Delayed wound healing (Chronic) Malnutrition (Chronic) Assessment: Left heel ulcer, current bacterial contamination with multiple organisms with previous grade 3 ulcer status with osteomyelitis. Status post operating room Versajet debridement with application of advanced wound healing products including amnio fill epicardial form August 06, 2019. Left Achilles tendon rupture healed. Peripheral vascular disease with recent intervention performed. Diabetes with neuropathy. Malnutrition. Other comorbidities. Walking difficulty Plan: Patient was examined and evaluated today. I reviewed and discussed his case. Subcutaneous excisional debridement was performed as noted in the clinical panel. No local signs of infection are noted today. TO continue knee roller use at home to aid with compliance. Cultures were obtained after the previous debridement irrigation was performed and it is noted MRSA, E. coli, corynebacterium, and others. I recommend he takes oral ciprofloxacin and doxycycline and this is been completed. This is been improving in quality and with suspected reduction of bioburden. To continue daily dressing change with [employer] and wash daily with antimicrobial Hibiclens soap. I recommend re suming application of advanced wound healing product, epi-fix, next week. It is noted his noninvasive vascular studies were abnormal again and he has had previous lower extremity ulcers with significant delayed healing. He saw Dr. Beck and angiogram was performed last week. To follow-up as scheduled. We also discussed the treatment option of hyperbaric oxygen therapy because he does have a grade 3 ulcer and prior diagnosis of osteomyelitis. He is not able to come to the wound care center on a daily basis and is not ready to commit to this process. The indications, planned application, anticipated healing time management and benefits and complications were discussed. I answered his questions. We also discussed transitioning him to a palliative care program. He recently had surgical intervention and advanced wound product applied and would like to give that a little bit more time especially because we are dressing is bacterial contamination. He is understanding the wound care plan would like to proceed at this time. To return to the wound healing center 1 week or call sooner if you have any questions or concerns. 2019 [facility] entry-. Reviewed today: He denies pain and his follow-up plan has been established. His medication allergy profile has been reconciled. Reviewed August 18, 2019: He is having a current smoking status and cessation intervention was advised. His blood pressure is 163/94 which is elevated. I recommend he follows up with his primary care physician due to associated risk factors. He is advised to maintain appropriate activity and diet as well. He does have an advanced care plan on file. His pneumococcal influenza immunization status was also reviewed.
[2019-10-15 12:47] LABS: Anion Gap 6 (5-15); BUN 12 mg/dL (7-18); BUN/Creat Ratio 14.2 RATIO (10-20); Calcium,Total 9.1 mg/dL (8.5-10.1); Chloride 104 mmol/L (98-107); Creatinine, Serum 0.85 mg/dL (0.70-1.30); EST Glomerular Filtration Rate 95 mL/min (>60); Est Glom Filt Rate - Afr Amer 114 mL/min (>60); Glucose 303 mg/dL (74-106); Potassium 4.5 mmol/L (3.5-5.1); Sodium Level 137 mmol/L (136-145)
[2019-10-20 08:13] VITALS: BP 152/76; PULSE 79; RESP 18; TEMP 37.1; BMI 27.7
--- NOTE | 2019-10-20 13:32 | PN.PCM_ITS ---
(1) Chronic ulcer of left foot with fat layer exposed Status: Chronic Current Visit: Yes Code(s): L97.522 - Non-pressure chronic ulcer of other part of left foot with fat layer exposed (2) PVD (peripheral vascular disease) Status: Chronic Current Visit: Yes Code(s): I73.9 - Peripheral vascular disease, unspecified (3) Type 2 diabetes mellitus with diabetic polyneuropathy Status: Chronic Current Visit: Yes Code(s): E11.42 - Type 2 diabetes mellitus with diabetic polyneuropathy (4) Walking difficulty due to ankle and foot Status: Chronic Current Visit: Yes Code(s): R26.2 - Difficulty in walking, not elsewhere classified (5) Delayed wound healing Status: Chronic Current Visit: Yes Code(s): T14.8XXD - Other injury of unspecified body region, subsequent encounter (6) Malnutrition Status: Chronic Current Visit: Yes Code(s): E46 - Unspecified protein- calorie malnutrition Type of Wound Date of Service: 10/20/19 Chief Complaint: Left heel ulcer History of Wound: This 74-year-old male with multiple comorbidities is seen today for left plantar heel ulcer. He continues to remain nonweightbearing. He had vascular surgery intervention performed recently with Dr. Beck and underwent vascular intervention. He defers additional advanced treatment such as hyperbaric oxygen. He is unable to transport on his own without assistance. He is currently ambulating with the assistance of a knee scooter. He denies fever, chill, nausea, vomiting, loss of appetite, or diarrhea. He has been washing his wound with medical grade soap as advised this past week and is ready to proceed forward with epi-fix today. It is noted he has had significant delays in healing and with his recent revascularization and improvement this is important for limb salvage. Progress of Wound: Improving quality and size - Physical Exam Vital Signs Temp Pulse Resp BP 98.7 F 79 18 152/76 H 10/20/19 08:13 10/20/19 08:13 10/20/19 08:13 10/20/19 08:13 General: Alert, Oriented x3, Cooperative, No apparent distress Extremities: No cyanosis, Capillary Refill Less than 3 Seconds, No Calf Tenderness, Diminished Peripheral Pulses, Edema Skin: Ulcer/ Wound - No purulence, erythema, string, odor, infection. The ulcer bed is granular and there are some peripheral epithelialization noted. No exposed bone. No maceration or necrosis. Adjacent skin is atrophic and hairless Wound Measurements and Assessment WC - Nurse 1 - General Ulcer Measurement Start: 09/29/19 08:24 Freq: Status: Active Protocol: Activity Type Activity Date Activity User E-Sign Co-Sign Detail Recorded Client Recorded Date Recorded By Document 10/20/19 08:13 RB [id number] 10/20/19 08:19 RB 10/20/19 08:13 Wound Center Nurse 1 [Ulcer Assessment] #1 Left Heel -Combined with other wound No -Current Size (cm) - Length 1 -Current Size (cm) - Width 1 -Current Size (cm) - Depth 1.2 -Total Square Cm 1 -Photo Taken Yes -Tunneling No -Undermining/Tunneling No -Circular Undermining No -Exudate Amt Small -Exudate Type Serosanguineous -Wound Margin Thickened & Rolled Under -Granulation Amt Medium (34-66%) -Granulation Quality [place] -Slough/Fibrin Yes -Necrosis Amt Medium (34-66%) -Necrotic Tissue Type Adherent Slough -Structure Exposed N/A -Texture (Emily-wound Skin Appearance) Assessed -Moisture (Emily-wound Skin Appearance Assessed ) -Color (Emily-wound Skin Appearance) Assessed -Temperature (Emily-wound Skin No Abnormality Appearance) (Pt Warm) -Tenderness on Palpation (Emily-wound No Skin Appearance) -Ulcer Cleansing Wound Cleanser -Foul Odor after Cleansing No -Anesthetic Used 4% Lidocaine Solution WC - Nurse 2 - General Ulcer CM Notes Start: 09/29/19 08:24 Freq: Status: Active Protocol: Activity Type Activity Date Activity User E-Sign Co-Sign Detail Recorded Client Recorded Date Recorded By Document 10/20/19 08:35 [id number] 10/20/19 08:37 GAGE 10/20/19 08:35 Wound Center Nurse 2 [Procedure/Treatment] -Time 08:35 -Correct Patient Yes -Correct Side, Site, Position Yes -Correct Procedure Yes -Procedure Performed Yes -Type of Procedure Debridement -Clinical Debridement Subcutaneous -Post Debridement Size (cm) - Length 1.1 -Post Debridement Size (cm) - Width 1.1 -Post Debridement Size (cm) - Depth 1.2 -Total Square Cm 1.21 -Wound/Ulcer Outcome Not Healed -Ulcer Cleansing Rinsed/ Irrigated with Saline -Foul Odor after Cleansing No -Bioengineered Tissue Yes -Type of bioengineered Tissue EPIFIX -Expiration Date 06/27/24 -Product Lot Number [id number] -Percent Used 100 -Saline Lot Number [id number] -Bleeding Controlled with Pressure -Offloading Yes -Type of Offloading Knee Walker -Treatment Response Procedure Tolerated Well [See Physician Procedure note for Specifics] Pain Scale: 0-10 Numeric [Pain] -Is Patient Pain Free? Yes Musculoskeletal: No Tenderness to Palpation of Joints or Extremities, Muscle Wasting, - - Compartment soft to palpate left lower extremity and there is no bogginess or fluctuance Neurological: - - Lack of epicritic sensation light touch is consistent with neuropathy Psych/Mental Status: Normal Affect, Appropriate Debridement Note Post-Debridement Measurements/Treatment WC - Nurse 2 - General Ulcer CM Notes Start: 09/29/19 08:24 Freq: Status: Active Protocol: Activity Type Activity Date Activity User E-Sign Co-Sign Detail Recorded Client Recorded Date Recorded By Document 09/29/19 08:49 [id number] 09/29/19 08:50 Document 10/13/19 08:51 [id number] 10/13/19 08:55 Document 10/20/19 08:35 [id number] 10/20/19 08:37 09/29/19 10/13/19 10/20/19 08:49 08:51 08:35 Wound Center Nurse 2 #1 Left Heel -Time 08:49 08:51 08:35 -Correct Patient Yes Yes Yes -Correct Side, Site, Position Yes Yes Yes -Correct Procedure Yes Yes Yes -Procedure Performed Yes Yes Yes -Type of Procedure Debridement Debridement Debridement -Clinical Debridement Subcutaneous Subcutaneous Subcutaneous -Post Debridement Size (cm) - Length 1.2 1.4 1.1 -Post Debridement Size (cm) - Width 1.2 1.4 1.1 -Post Debridement Size (cm) - Depth 1.0 1.0 1.2 -Total Square Cm 1.44 1.96 1.21 -Wound/Ulcer Outcome Not Healed Not Healed Not Healed -Ulcer Cleansing Rinsed/ Rinsed/ Rinsed/ Irrigated with Irrigated with Irrigated with Saline Saline Saline -Foul Odor after Cleansing No No No -Bioengineered Tissue No No Yes -Type of bioengineered Tissue EPIFIX -Expiration Date 06/27/24 -Product Lot Number [id number] -Percent Used 100 -Saline Lot Number [id number] -Bleeding Controlled with Pressure Pressure Pressure -Offloading Yes Yes Yes -Type of Offloading Knee Walker Knee Walker Knee Walker -Treatment Response Procedure Procedure Procedure Tolerated Well Tolerated Well Tolerated Well Pain Scale: 0-10 Numeric Is Patient Pain Free? Yes Yes Yes Wound debrided: plantar heel Laterality: Left Wound Grade/Stage: grade 3 Type of Debridement: Excisional debridement Anesthesia Used: 5% Lidocaine Gel Depth: in the subcutaneous layer Percentage of wound debrided: 100 Instrument Used: #15 blade Tissue Removed: fibrous, devitalized subcutaneous, biofilm, slough Severity: Fat Layer Exposed Amount of bleeding with debridement: Mild Bleeding Controlled with: Pressure Patient tolerated procedure well Assessment/Plan Active Problems (Last Reviewed 09/15/19 @ 08:[address] Td Bronson MD) PVD (peripheral vascular disease) (Chronic) Type 2 diabetes mellitus with diabetic polyneuropathy (Chronic) Walking difficulty due to ankle and foot (Chronic) Chronic ulcer of left foot with fat layer exposed (Chronic) Delayed wound healing (Chronic) Malnutrition (Chronic) Assessment: Left heel ulcer, prior bacterial contamination with multiple organisms with previous grade 3 ulcer status with osteomyelitis. Left Achilles tendon rupture healed. Peripheral vascular disease with recent intervention performed. Diabetes with neuropathy. Malnutrition. Other comorbidities. Walking difficulty. Delayed healing Plan: This patient was examined and evaluated today. I reviewed and discussed his case. Subcutaneous excisional debridement was performed as noted in the clinical panel. No local signs of infection are noted today. To continue knee roller use at home to aid with compliance. Cultures were obtained after the previous debridement irrigation was performed and it is noted MRSA, E. coli, corynebacterium, and others. I recommend he takes oral ciprofloxacin and doxycycline and this is been completed. This has been improving in quality and with suspected reduction of bioburden. I recommend resuming application of advanced wound healing product, epi-fix. Verbal consent was obtained and this was applied according standard protocol. This is also secured in place with Adaptic touch wound veil and secured with Steri-Strips. He is advised to keep this clean, dry, and intact until follow-up next week. It is okay for his home health to change the outer dressing 1-2 times this upcoming week. He is demonstrating some signs of healing improvement since he is recently been revascularized and the wound size is also slightly reduced. This is medically necessary for limb salvage and to help him heal in a timely manner, especially during Covid 19 pandemic timeframe. He certainly has many comorbidities and this makes him higher risk for infection and delayed healing. It is noted his noninvasive vascular studies were abnormal again and he has had previous lower extremity ulcers with significant delayed healing. He saw Dr. Beck and angiogram was performed recently. To follow-up as scheduled. We also discussed the treatment option of hyperbaric oxygen therapy because he does have a grade 3 ulcer and prior diagnosis of osteomyelitis. He is not able to come to the wound care center on a daily basis and is not ready to commit to this process. The indications, planned application, anticipated healing time management and benefits and complications were discussed. I answered his questions. We also discussed transitioning him to a palliative care program. He recently had surgical intervention and advanced wound product applied and would like to give that a little bit more time especially because we are dressing is bacterial contamination. He is understanding the wound care plan would like to proceed at this time. To return to the wound healing center 1 week or call sooner if you have any questions or concerns. 2020 [employer] entry-. Reviewed today: He denies pain and his follow-up plan has been established. His medication allergy pro file has been reconciled. Reviewed August 18, 2019: He is having a current smoking status and cessation intervention was advised. His blood pressure is 163/94 which is elevated. I recommend he follows up with his primary care physician due to associated risk factors. He is advised to maintain appropriate activity and diet as well. He does have an advanced care plan on file. His pneumococcal influenza immunization status was also reviewed.
== END 2019-10-26 23:59 ==
LOC: WC 08:00
PROVIDERS: Family Provider Family Medicine; PCP Family Medicine; Referring Provider Podiatrist; Visit Provider Podiatrist
DX: E11.621 Type 2 diabetes mellitus with foot ulcer (principal); E11.42 Type 2 diabetes mellitus with diabetic polyneuropathy; E11.51 Type 2 diabetes mellitus with diabetic peripheral angiopathy without gangrene; L97.422 Non-pressure chronic ulcer of left heel and midfoot with fat layer exposed; R26.2 Difficulty in walking, not elsewhere classified
CPT/HCPCS: 11042; 15275; 80048; Q4186

== ENCOUNTER → 2019-11-04 18:03 | Outpatient (CLI) | payer MEDICARE, SELFPAY ==
[2019-11-03 08:17] VITALS: BMI 27.3
[2019-11-04 18:24] LABS: CRP < 2.90 mg/L (0.0-3.0)
== END ==
PROVIDERS: PCP Family Medicine; Referring Provider Podiatrist; Visit Provider Podiatrist
DX: E11.621 Type 2 diabetes mellitus with foot ulcer (principal); L97.522 Non-pressure chronic ulcer of other part of left foot with fat layer exposed
CPT/HCPCS: 86140

== ENCOUNTER 2019-11-24 08:00 | Outpatient (RCR) | payer MEDICARE, SELFPAY ==
[2019-10-27 00:25] VITALS: BP 152/76; PULSE 79; RESP 18; TEMP 37.1; BMI 27.3
[2019-10-27 08:10] VITALS: BMI 27.3
--- NOTE | 2019-10-27 08:32 | PCM.WC.PN ---
(1) Cellulitis of left foot Status: Acute Current Visit: Yes Code(s): L03.116 - Cellulitis of left lower limb (2) PVD (peripheral vascular disease) Status: Chronic Current Visit: Yes Code(s): I73.9 - Peripheral vascular disease, unspecified (3) Type 2 diabetes mellitus with diabetic polyneuropathy Status: Chronic Current Visit: Yes Code(s): E11.42 - Type 2 diabetes mellitus with diabetic polyneuropathy (4) Chronic ulcer of left foot with fat layer exposed Status: Chronic Current Visit: No Code(s): L97.522 - Non-pressure chronic ulcer of other part of left foot with fat layer exposed (5) Type 2 diabetes mellitus with diabetic polyneuropathy Status: Chronic Current Visit: No Code(s): E11.42 - Type 2 diabetes mellitus with diabetic polyneuropathy (6) Malnutrition Status: Chronic Current Visit: No Code(s): E46 - Unspecified protein-calorie malnutrition Type of Wound Date of Service: 10/27/19 Chief Complaint: Left heel ulcer History of Wound: This 74-year-old male with multiple comorbidities was seen today for left plantar heel ulcer. He continues to remain nonweightbearing. He had vascular surgery intervention performed recently with Dr. Beck and underwent vascular intervention. He defers additional advanced treatment such as hyperbaric oxygen. He is unable to transport on his own without assistance. He is currently ambulating with the assistance of a knee scooter. He denies fever, chill, nausea, vomiting, loss of appetite, or diarrhea. He denies redness or odor coming from the foot. It is noted he has had significant delays in healing and with his recent revascularization and improvement this is important for limb salvage. He also has development of a blister to the side of the heel with some new drainage. He denies pain or injury. He is unaware of any odor redness or swelling. Progress of Wound: Improving quality and size - Physical Exam Vital Signs Temp Pulse Resp BP 98.7 F 79 18 152/76 H 10/27/19 00:25 10/27/19 00:25 10/27/19 00:25 10/27/19 00:25 General: Alert, Oriented x3, Cooperative, No apparent distress Extremities: No cyanosis, Capillary Refill Less than 3 Seconds, No Calf Tenderness, Diminished Peripheral Pulses, Edema Skin: Ulcer/ Wound - Serosanguineous drainage from the plantar aspect of the ulcer with significant peripheral epithelialization and granulation progression of the wound bed. The adjacent skin is hairless and atrophic. There is a small blister to the medial left heel upon debridement there is about 2 cc of purulent drainage just locally noted. There is no adjacent erythema streaking, necrosis or deep tissue exposure. Wound Measurements and Assessment WC - Nurse 1 - General Ulcer Measurement Start: 10/27/19 08:10 Freq: Status: Active Protocol: Activity Type Activity Date Activity User E-Sign Co-Sign Detail Recorded Client Recorded Date Recorded By Document 10/27/19 08:10 [email or web address] [id number] 10/27/19 08:13 DV 10/27/19 08:10 Wound Center Nurse 1 [Ulcer Assessment] #1 Left Heel -Combined with other wound No -Current Size (cm) - Length 0.9 -Current Size (cm) - Width 0.6 -Current Size (cm) - Depth 0.7 -Total Square Cm 0.54 -Photo Taken No -Epithelialization None Present -Tunneling No -Undermining/Tunneling No -Circular Undermining No -Classification - Thickness Full Thickness without Exposed Support Structure -Change in Wound Grade/Stage No Query Text:If change please identify the Stage/Grade in the comment (ie. S2 G3) -Wound Margin Indistinct, Non -Visible -Granulation Amt None Present (0 %) -Granulation Quality N/A -Slough/Fibrin Yes -Necrosis Amt Large (67-100%) -Necrotic Tissue Type Adherent Slough -Structure Exposed None/Limited to Skin Breakdown -Texture (Emily-wound Skin Appearance) Assessed, Scarring -Moisture (Emily-wound Skin Appearance Assessed, ) Maceration, Weeping -Color (Emily-wound Skin Appearance) No Abnormality, Assessed -Temperature (Emily-wound Skin No Abnormality Appearance) (Pt Warm) -Tenderness on Palpation (Emily-wound No Skin Appearance) -Ulcer Cleansing Rinsed/ Irrigated with Saline -Foul Odor after Cleansing No -Anesthetic Used 4% Lidocaine Solution FINA - Nurse 2 - General Ulcer CM Notes Start: 10/27/19 08:10 Freq: Status: Active Protocol: Activity Type Activity Date Activity User E-Sign Co-Sign Detail Recorded Client Recorded Date Recorded By Document 10/27/19 08:27 GAGE [id number] 10/27/19 08:29 GAGE 10/27/19 08:27 Wound Center Nurse 2 [Procedure/Treatment] 3-left posterior heel -Time 08:28 -Correct Patient Yes -Correct Side, Site, Position Yes -Correct Procedure Yes -Procedure Performed Yes -Type of Procedure Debridement -Clinical Debridement Subcutaneous -Post Debridement Size (cm) - Length 1.1 -Post Debridement Size (cm) - Width 0.4 -Post Debridement Size (cm) - Depth 0.5 -Total Square Cm 0.44 -Wound/Ulcer Outcome Not Healed -Ulcer Cleansing Rinsed/ Irrigated with Saline -Foul Odor after Cleansing No -Bioengineered Tissue No -Bleeding Controlled with Pressure -Offloading Yes -Type of Offloading Knee Walker -Treatment Response Procedure Tolerated Well #1 Left Heel -Time 08:28 -Correct Patient Yes -Correct Side, Site, Position Yes -Correct Procedure Yes -Procedure Performed Yes -Type of Procedure Debridement -Clinical Debridement Subcutaneous -Post Debridement Size (cm) - Length 1.2 -Post Debridement Size (cm) - Width 0.9 -Post Debridement Size (cm) - Depth 0.8 -Total Square Cm 1.08 -Wound/Ulcer Outcome Not Healed -Ulcer Cleansing Rinsed/ Irrigated with Saline -Foul Odor after Cleansing No -Bioengineered Tissue No -Bleeding Controlled with Pressure -Offloading Yes -Type of Offloading Knee Walker -Treatment Response Procedure Tolerated Well [See Physician Procedure note for Specifics] Pain Scale: 0-10 Numeric [Pain] -Is Patient Pain Free? Yes Musculoskeletal: No Tenderness to Palpation of Joints or Extremities, Muscle Wasting, - - Achilles is palpably intact without pain on palpation Neurological: - - Lack of epicritic sensation light touch is consistent with neuropathy status Psych/Mental Status: Normal Affect, Appropriate Debridement Note Post-Debridement Measurements/Treatment WC - Nurse 2 - General Ulcer CM Notes Start: 10/27/19 08:10 Freq: Status: Active Protocol: Activity Type Activity Date Activity User E-Sign Co-Sign Detail Recorded Client Recorded Date Recorded By Document 10/27/19 08:27 GAGE [id number] 10/27/19 08:29 GAGE 10/27/19 08:27 Wound Center Nurse 2 3-left posterior heel -Time 08:28 -Correct Patient Yes -Correct Side, Site, Position Yes -Correct Procedure Yes -Procedure Performed Yes -Type of Procedure Debridement -Clinical Debridement Subcutaneous -Post Debridement Size (cm) - Length 1.1 -Post Debridement Size (cm) - Width 0.4 -Post Debridement Size (cm) - Depth 0.5 -Total Square Cm 0.44 -Wound/Ulcer Outcome Not Healed -Ulcer Cleansing Rinsed/ Irrigated with Saline -Foul Odor after Cleansing No -Bioengineered Tissue No -Bleeding Controlled with Pressure -Offloading Yes -Type of Offloading Knee Walker -Treatment Response Procedure Tolerated Well #1 Left Heel -Time 08:28 -Correct Patient Yes -Correct Side, Site, Position Yes -Correct Procedure Yes -Procedure Performed Yes -Type of Procedure Debridement -Clinical Debridement Subcutaneous -Post Debridement Size (cm) - Length 1.2 -Post Debridement Size (cm) - Width 0.9 -Post Debridement Size (cm) - Depth 0.8 -Total Square Cm 1.08 -Wound/Ulcer Outcome Not Healed -Ulcer Cleansing Rinsed/ Irrigated with Saline -Foul Odor after Cleansing No -Bioengineered Tissue No -Bleeding Controlled with Pressure -Offloading Yes -Type of Offloading Knee Walker -Treatment Response Procedure Tolerated Well Pain Scale: 0-10 Numeric Is Patient Pain Free? Yes Wound debrided: plantar heel Laterality: Left Wound Grade/Stage: grade 3 Type of Debridement: Excisional debridement Anesthesia Used: 5% Lidocaine Gel Depth: in the subcutaneous layer Percentage of wound debrided: 100 Instrument Used: #15 blade Tissue Removed: fibrous, devitalized subcutaneous, biofilm, slough Severity: Fat Layer Exposed Amount of bleeding with debridement: Mild Bleeding Controlled with: Pressure Patient tolerated procedure well - Additional Wound Wound debrided: medial heel Laterality: Left Wound Grade/Stage: grade 1 Type of Debridement: Excisional debridement Anesthesia Used: 5% Lidocaine Gel Depth: in the subcutaneous layer Percentage of wound debrided: 100 Instrument Used: #15 blade Tissue Removed: fibrous, devitalized subcutaneous, biofilm, slough Severity: Fat Layer Exposed Amount of bleeding with debridement: Mild Bleeding Controlled with: Pressure Patient tolerated procedure: Patient tolerated procedure well Assessment/Plan Active Problems (Last Reviewed 09/15/19 @ 08:[address] Td Bronson MD) PVD (peripheral vascular disease) (Chronic) Cellulitis of left foot (Acute) Type 2 diabetes mellitus with diabetic polyneuropathy (Chronic) Assessment: Left heel ulcer, prior bacterial contamination with multiple organisms with previous grade 3 ulcer status with osteomyelitis. New left heel medial ulcer with cellulitis/localized infection (mild). Left Achilles tendon rupture healed. Peripheral vascular disease with recent intervention performed. Diabetes with neuropathy. Malnutrition. Other comorbidities. Walking difficulty. Delayed healing Plan: This patient was examined and evaluated today. I reviewed and discussed his case. Subcutaneous excisional debridement was performed as noted in the clinical panel. No local signs of infection are noted today. To continue knee roller use at home to aid with compliance. He is demonstrating some signs of healing improvement since he is recently been revascularized and the wound size is also reduced to the plantar aspect of the heel. He certainly has many comorbidities and this makes him higher risk for infection and delayed healing. It is noted his noninvasive vascular studies were abnormal again and he has had previous lower extremity ulcers with significant delayed healing. He saw Dr. Beck and angiogram was performed recently. To follow-up as scheduled. We also discussed the treatment option of hyperbaric oxygen therapy because he does have a grade 3 ulcer and prior diagnosis of osteomyelitis. He is not able to come to the wound care center on a daily basis and is not ready to commit to this process. The indications, planned application, anticipated healing time management and benefits and complications were discussed. I answered his questions. We also discussed transitioning him to a palliative care program. He recently had surgical intervention and advanced wound product applied and would like to give that a little bit more time because he is demonstrating recent improvement. He is understanding the wound care plan would like to proceed at this time. He does have a new draining blister to the medial aspect of his heel and upon debridement there is less than 2 cc of purulence expressed. There is no distinct erythema or edema or odor noted there is no probing to deep structures or necrosis. A wound culture was obtained and sent for aerobic, anaerobic, and MRSA PCR. He was advised to change both dressings every 1 to 2 days with [employer]. It is noted home health is only able to go to his house every other day. He did also have some updated lab work ordered today including C BC with differential, ESR, C-reactive protein. He understands this is consistent with a mild localized infection or cellulitis. He does not appear to have streaking or lymphadenopathy or systemic illness which would warrant hospitalization. He will monitor this closely at home especially during this time of the coronavirus pandemic are trying to prevent possible exposure unless necessary. To return to the wound healing center 1 week or call sooner if you have any questions or concerns. 2019 [facility] entry-. Reviewed today: He denies falling within the past year. His medication allergy profile has been reconciled. Reviewed August 18, 2019: He is having a current smoking status and cessation intervention was advised. His blood pressure is 163/94 which is elevated. I recommend he follows up with his primary care physician due to associated risk factors. He is advised to maintain appropriate activity and diet as well. He does have an advanced care plan on file. His pneumococcal influenza immunization status was also reviewed.
[2019-10-27 09:25] LABS: Absolute Lymphocyte Count 2.03 X10^3/uL (0.83-4.51); Basophil# 0.04 X10^3/uL; Basophil% 0.5 % (0-1); Eosinophil# 0.17 X10^3/uL; Eosinophils% 2.1 % (0-5); Hematocrit 36.2 % (40-54); Hemoglobin 12.5 g/dL (13.0-16.5); Lymphocyte # 2.03 X10^3/ul (4.0); Lymphocyte % 25.4 % (19-41); Mean Corp Hgb Conc 34.5 g/dL (32-36); Mean Corpuscular Hgb 32.1 pg (27.0-32.0); Mean Corpuscular Volume 92.8 fL (80-94); Mean Platelet Vol. 9.9 fl (6.2-12.0); Monocyte# 0.71 X10^3/uL; Monocyte% 8.9 % (0-10); NRBC Flagged by Analyzer 0 % (0-5); Neutrophil # 5.01 X10^3/uL (2.7-7.7); Neutrophil % 62.6 % (47-70); Platelet Count 191 K/mm3 (150-450); RBC Distribution Width CV 13.2 % (11.6-14.6); RBC Distribution Width SD 43.5 fl (35.1-43.9)
[2019-10-27 09:43] LABS: Erythrocyte Sedimentation Rate 28 mm/hr (0-20)
[2019-10-27 12:32] LABS: M R Staph aureus DNA By PCR Negative (Negative); Probe Check PASS; Specimen Processing Control PASS; Staph aureus DNA By PCR POSITIVE (Negative)
[2019-11-03 08:17] VITALS: BP 149/76; PULSE 64; RESP 18; TEMP 36.4; BMI 27.3
--- NOTE | 2019-11-03 08:35 | PCM.WC.PN ---
(1) Cellulitis of left foot Status: Acute Current Visit: Yes Code(s): L03.116 - Cellulitis of left lower limb (2) PVD (peripheral vascular disease) Status: Chronic Current Visit: Yes Code(s): I73.9 - Peripheral vascular disease, unspecified (3) Type 2 diabetes mellitus with diabetic polyneuropathy Status: Chronic Current Visit: Yes Code(s): E11.42 - Type 2 diabetes mellitus with diabetic polyneuropathy (4) Chronic ulcer of left foot with fat layer exposed Status: Chronic Current Visit: No Code(s): L97.522 - Non-pressure chronic ulcer of other part of left foot with fat layer exposed (5) Type 2 diabetes mellitus with diabetic polyneuropathy Status: Chronic Current Visit: No Code(s): E11.42 - Type 2 diabetes mellitus with diabetic polyneuropathy (6) Malnutrition Status: Chronic Current Visit: No Code(s): E46 - Unspecified protein-calorie malnutrition Type of Wound Date of Service: 11/03/19 Chief Complaint: Left heel ulcer History of Wound: This 74-year-old male with multiple comorbidities was seen today for left plantar heel ulcer. He continues to remain nonweightbearing. He had vascular surgery intervention performed recently with Dr. Beck and underwent vascular intervention. He defers additional advanced treatment such as hyperbaric oxygen. He is unable to transport on his own without assistance. He is currently ambulating with the assistance of a knee scooter. He denies fever, chill, nausea, vomiting, loss of appetite, or diarrhea. He denies redness or odor coming from the foot. It is noted he has had significant delays in healing and with his recent revascularization and improvement this is important for limb salvage. Home health has been helping him daily with [employer] [facility]. He has been taking oral Augmentin and ciprofloxacin as prescribed. Progress of Wound: Improving quality and size - Physical Exam Vital Signs Temp Pulse Resp BP 97.6 F L 64 18 149/76 H 11/03/19 08:17 11/03/19 08:17 11/03/19 08:17 11/03/19 08:17 General: Alert, Oriented x3, Cooperative, No apparent distress Extremities: No cyanosis, Capillary Refill Less than 3 Seconds, No Calf Tenderness, Diminished Peripheral Pulses, Edema - Mild Skin: Ulcer/ Wound - Thickened fibrinous drainage from the medial ulcer site that is still devitalized. The erythema and edema around the site has resolved. There is no proximal streaking. The plantar foot ulcer has granular base with peripheral callus. No necrosis, exposed deep tissue, or maceration. His peripheral skin is hairless and atrophic Wound Measurements and Assessment WC - Nurse 1 - General Ulcer Measurement Start: 10/27/19 08:10 Freq: Status: Active Protocol: Activity Type Activity Date Activity User E-Sign Co-Sign Detail Recorded Client Recorded Date Recorded By Document 11/03/19 08:17 RB [id number] 11/03/19 08:20 RB 11/03/19 08:17 Wound Center Nurse 1 [Ulcer Assessment] 3-left posterior heel -Combined with other wound No -Current Size (cm) - Length 0.1 -Current Size (cm) - Width 0.1 -Current Size (cm) - Depth 0.1 -Total Square Cm 0.01 -Tunneling No -Undermining/Tunneling No -Circular Undermining No -Exudate Amt None Present -Wound Margin Flat & Intact -Granulation Amt Large (67-100%) -Granulation Quality [place] -Slough/Fibrin Yes -Necrosis Amt Small (1-33%) -Necrotic Tissue Type Adherent Slough -Structure Exposed N/A -Texture (Emily-wound Skin Appearance) Assessed,Callus -Moisture (Emily-wound Skin Appearance Assessed ) -Color (Emily-wound Skin Appearance) Assessed -Temperature (Emily-wound Skin No Abnormality Appearance) (Pt Warm) -Tenderness on Palpation (Emily-wound No Skin Appearance) -Ulcer Cleansing Wound Cleanser -Foul Odor after Cleansing No #1 Left Heel -Combined with other wound No -Current Size (cm) - Length 0.7 -Current Size (cm) - Width 1.4 -Current Size (cm) - Depth 0.9 -Total Square Cm 0.98 -Tunneling No -Undermining/Tunneling No -Circular Undermining No -Exudate Amt Medium -Exudate Type Serosanguineous -Wound Margin Thickened & Rolled Under -Granulation Amt Medium (34-66%) -Granulation Quality [place] -Slough/Fibrin Yes -Necrosis Amt Small (1-33%) -Necrotic Tissue Type Adherent Slough -Structure Exposed N/A -Texture (Emily-wound Skin Appearance) Callus -Moisture (Emily-wound Skin Appearance Assessed ) -Color (Emily-wound Skin Appearance) Assessed -Temperature (Emily-wound Skin No Abnormality Appearance) (Pt Warm) -Tenderness on Palpation (Emily-wound No Skin Appearance) -Ulcer Cleansing Wound Cleanser -Foul Odor after Cleansing No -Anesthetic Used 4% Lidocaine Solution [Edema Assessment] -Lower Limb Edema Present Yes -Left Calf (cm) 36 -Left Ankle (cm) 21 Musculoskeletal: No Tenderness to Palpation of Joints or Extremities, Muscle Wasting Neurological: - - Lack of normal epicritic sensation consistent with neuropathy status Psych/Mental Status: Normal Affect, Appropriate Debridement Note Post-Debridement Measurements/Treatment WC - Nurse 2 - General Ulcer CM Notes Start: 10/27/19 08:10 Freq: Status: Active Protocol: Activity Type Activity Date Activity User E-Sign Co-Sign Detail Recorded Client Recorded Date Recorded By Document 10/27/19 08:27 GAGE [id number] 10/27/19 08:29 GAGE 10/27/19 08:27 Wound Center Nurse 2 3-left posterior heel -Time 08:28 -Correct Patient Yes -Correct Side, Site, Position Yes -Correct Procedure Yes -Procedure Performed Yes -Type of Procedure Debridement -Clinical Debridement Subcutaneous -Post Debridement Size (cm) - Length 1.1 -Post Debridement Size (cm) - Width 0.4 -Post Debridement Size (cm) - Depth 0.5 -Total Square Cm 0.44 -Wound/Ulcer Outcome Not Healed -Ulcer Cleansing Rinsed/ Irrigated with Saline -Foul Odor after Cleansing No -Bioengineered Tissue No -Bleeding Controlled with Pressure -Offloading Yes -Type of Offloading Knee Walker -Treatment Response Procedure Tolerated Well #1 Left Heel -Time 08:28 -Correct Patient Yes -Correct Side, Site, Position Yes -Correct Procedure Yes -Procedure Performed Yes -Type of Procedure Debridement -Clinical Debridement Subcutaneous -Post Debridement Size (cm) - Length 1.2 -Post Debridement Size (cm) - Width 0.9 -Post Debridement Size (cm) - Depth 0.8 -Total Square Cm 1.08 -Wound/Ulcer Outcome Not Healed -Ulcer Cleansing Rinsed/ Irrigated with Saline -Foul Odor after Cleansing No -Bioengineered Tissue No -Bleeding Controlled with Pressure -Offloading Yes -Type of Offloading Knee Walker -Treatment Response Procedure Tolerated Well Pain Scale: 0-10 Numeric Is Patient Pain Free? Yes Wound debrided: plantar heel Laterality: Left Wound Grade/Stage: grade 3 Type of Debridement: Excisional debridement Anesthesia Used: 5% Lidocaine Gel Depth: in the subcutaneous layer Percentage of wound debrided: 100 Instrument Used: #15 blade Tissue Removed: fibrous, devitalized subcutaneous, biofilm, slough Severity: Fat Layer Exposed Amount of bleeding with debridement: Mild Bleeding Controlled with: Pressure Patient tolerated procedure well - Additional Wound Wound debrided: medial heel Laterality: Left Wound Grade/Stage: grade 1 Type of Debridement: Excisional debridement Anesthesia Used: 5% Lidocaine Gel Depth: in the subcutaneous layer Percentage of wound debrided: 100 Instrument Used: #15 blade Tissue Removed: fibrous, devitalized subcutaneous, biofilm, slough Severity: Fat Layer Exposed Amount of bleeding with debridement: Mild Bleeding Controlled with: Pressure Patient tolerated procedure: Patient tolerated procedure well Assessment/Plan Active Problems (Last Reviewed 09/15/19 @ 08:[address] Td Bronson MD) PVD (peripheral vascular disease) (Chronic) Cellulitis of left foot (Acute) Type 2 diabetes mellitus with diabetic polyneuropathy (Chronic) Assessment: Left heel ulcer, prior bacterial contamination with multiple organisms with previous grade 3 ulcer status with osteomyelitis. left heel medial ulcer with cellulitis/localized infection (mild) - improving. Left Achilles tendon rupture healed. Peripheral vascular disease with recent intervention performed. Diabetes with neuropathy. Malnutrition. Other comorbidities. Walking difficulty. Delayed healing Plan: This patient was examined and evaluated today. I reviewed and discussed his case. Subcutaneous excisional debridement was performed as noted in the clinical panel. His signs of infection have decreased and I recommend continued [facility] antimicrobial medical grade soap wash daily. He also recommend a refill of Augmentin and ciprofloxacin; a refill for an additional week was verbally called into [facility] pharmacy. Labs were reviewed and white blood cell count was 8 and ESR was 28. Microbiology report demonstrated Staphylococcus aureus, kocuria kristinae, acinobacter luvoffi. He was advised to continue knee roller use at home to aid with compliance. He is demonstrating some signs of healing improvement since he is recently been revascularized and the wound size is also reduced to the plantar aspect of the heel. He certainly has many comorbidities and this makes him higher risk for infection and delayed healing. It is noted his noninvasive vascular studies were abnormal again and he has had previous lower extremity ulcers with significant delayed healing. He saw Dr. Beck and angiogram was performed recently. To follow-up as scheduled. We also discussed the treatment option of hyperbaric oxygen therapy because he does have a grade 3 ulcer and prior diagnosis of osteomyelitis. He is not able to come to the wound care center on a daily basis and is not ready to commit to this process. The indications, planned application, anticipated healing time management and benefits and complications were discussed. I answered his questions. We also discussed transitioning him to a palliative care program. He recently had surgical intervention and advanced wound product applied and would like to give that a little bit more time because he is demonstrating recent improvement. He is understanding the wound care plan would like to proceed at this time. He will monitor this closely at home especially during this time of the coronavirus pandemic are trying to prevent possible exposure unless necessary. To return to the wound healing center 1 week or call sooner if you have any questions or concerns. 2020 [facility] entry-. Reviewed today: He denies falling within the past year. His medication allergy profile has been reconciled. Reviewed August 18, 2019: He is having a current smoking status and cessation intervention was advised. His blood pressure is 163/94 which is elevated. I recommend he follows up with his primary care physician due to associated risk factors. He is advised to maintain appropriate activity and diet as well. He does have an advanced care plan on file. His pneumococcal influenza immunization status was also reviewed.
[2019-11-10 08:47] VITALS: BP 176/85; PULSE 65; RESP 18; TEMP 36.3; BMI 27.3
--- NOTE | 2019-11-10 09:17 | PN.PCM_ITS ---
(1) Cellulitis of left foot Status: Resolved Current Visit: Yes Code(s): L03.116 - Cellulitis of left lower limb (2) PVD (peripheral vascular disease) Status: Chronic Current Visit: Yes Code(s): I73.9 - Peripheral vascular disease, unspecified (3) Type 2 diabetes mellitus with diabetic polyneuropathy Status: Chronic Current Visit: Yes Code(s): E11.42 - Type 2 diabetes mellitus with diabetic polyneuropathy (4) Chronic ulcer of left foot with fat layer exposed Status: Chronic Current Visit: Yes Code(s): L97.522 - Non-pressure chronic ulcer of other part of left foot with fat layer exposed (5) Type 2 diabetes mellitus with diabetic polyneuropathy Status: Chronic Current Visit: Yes Code(s): E11.42 - Type 2 diabetes mellitus with diabetic polyneuropathy (6) Malnutrition Status: Chronic Current Visit: Yes Code(s): E46 - Unspecified protein- calorie malnutrition Type of Wound Date of Service: 11/10/19 Chief Complaint: Left heel ulcer History of Wound: This 74-year-old male with multiple comorbidities was seen today for left plantar heel ulcer. He continues to remain nonweightbearing. He had vascular surgery intervention performed recently with Dr. Beck and underwent vascular intervention. He defers additional advanced treatment such as hyperbaric oxygen. He is unable to transport on his own without assistance. He is currently ambulating with the assistance of a knee scooter. He denies fever, chill, nausea, vomiting, loss of appetite, or diarrhea. He denies redness or odor coming from the foot. It is noted he has had significant delays in healing and with his recent revascularization and improvement this is important for limb salvage. Home health has been helping him daily with [employer]. He has been taking oral Augmentin and ciprofloxacin as prescribed including a recent refill. He has 2 additional days remaining. He denies drainage to the inner aspect of his heel. Progress of Wound: Improving. Healed medial ulcer site with resolution of infection - Physical Exam Vital Signs Temp Pulse Resp BP 97.3 F L 65 18 176/85 H 11/10/19 08:47 11/10/19 08:47 11/10/19 08:47 11/10/19 08:47 General: Alert, Oriented x3, Cooperative, No apparent distress HEENT: Atraumatic Extremities: No cyanosis, Capillary Refill Less than 3 Seconds, No Calf Tenderness, Diminished Peripheral Pulses, Edema Skin: Ulcer/ Wound - Skin discontinuity to plantar foot only with granular base and reduced callus formation. The medial ulcer site is healing there is no purulence on expression erythema edema or odor or streaking. The skin is atrophic and hairless. Wound Measurements and Assessment WC - Nurse 1 - General Ulcer Measurement Start: 10/27/19 08:10 Freq: Status: Active Protocol: Activity Type Activity Date Activity User E-Sign Co-Sign Detail Recorded Client Recorded Date Recorded By Document 11/10/19 08:47 RB [id number] 11/10/19 08:50 RB 11/10/19 08:47 Wound Center Nurse 1 [Ulcer Assessment] 3-left posterior heel -Combined with other wound No -Current Size (cm) - Length 0.1 -Current Size (cm) - Width 0.1 -Current Size (cm) - Depth 0.1 -Total Square Cm 0.01 -Photo Taken No -Tunneling No -Undermining/Tunneling No -Circular Undermining No -Exudate Amt None Present -Wound Margin Flat & Intact -Granulation Amt Medium (34-66%) -Granulation Quality [place] -Slough/Fibrin Yes -Necrosis Amt Small (1-33%) -Necrotic Tissue Type Adherent Slough -Structure Exposed N/A -Texture (Emily-wound Skin Appearance) Assessed -Moisture (Emily-wound Skin Appearance Assessed ) -Color (Emily-wound Skin Appearance) Assessed -Temperature (Emily-wound Skin No Abnormality Appearance) (Pt Warm) -Tenderness on Palpation (Emily-wound No Skin Appearance) -Ulcer Cleansing Wound Cleanser -Foul Odor after Cleansing No #1 Left Heel -Combined with other wound No -Current Size (cm) - Length 1 -Current Size (cm) - Width 1 -Current Size (cm) - Depth 0.8 -Total Square Cm 1 -Photo Taken No -Tunneling No -Undermining/Tunneling No -Circular Undermining No -Wound Margin Thickened & Rolled Under -Granulation Amt Medium (34-66%) -Granulation Quality [place] -Slough/Fibrin Yes -Necrosis Amt Small (1-33%) -Necrotic Tissue Type Adherent Slough -Structure Exposed N/A -Texture (Emily-wound Skin Appearance) Assessed -Moisture (Emily-wound Skin Appearance Maceration ) -Color (Emily-wound Skin Appearance) Assessed -Temperature (Emily-wound Skin No Abnormality Appearance) (Pt Warm) -Tenderness on Palpation (Emily-wound No Skin Appearance) -Ulcer Cleansing Wound Cleanser -Foul Odor after Cleansing No -Anesthetic Used 5% Lidocaine Gel WC - Nurse 2 - General Ulcer CM Notes Start: 10/27/19 08:10 Freq: Status: Active Protocol: Activity Type Activity Date Activity User E-Sign Co-Sign Detail Recorded Client Recorded Date Recorded By Document 11/10/19 08:59 [id number] 11/10/19 09:03 11/10/19 08:59 Wound Center Nurse 2 [Procedure/Treatment] 3-left posterior heel -Correct Patient No -Correct Side, Site, Position No -Correct Procedure No -Procedure Performed No -Post Debridement Size (cm) - Length 0 -Post Debridement Size (cm) - Width 0 -Post Debridement Size (cm) - Depth 0 -Total Square Cm 0 -Wound/Ulcer Outcome Healed- Epithelialized #1 Left Heel -Time 09:01 -Correct Patient Yes -Correct Side, Site, Position Yes -Correct Procedure Yes -Procedure Performed Yes -Type of Procedure Debridement -Clinical Debridement Subcutaneous -Post Debridement Size (cm) - Length 1.1 -Post Debridement Size (cm) - Width 1.0 -Post Debridement Size (cm) - Depth 0.4 -Total Square Cm 1.10 -Wound/Ulcer Outcome Not Healed -Ulcer Cleansing Rinsed/ Irrigated with Saline -Foul Odor after Cleansing No -Bioengineered Tissue No -Bleeding Controlled with Pressure -Offloading Yes -Type of Offloading Knee Walker -Treatment Response Procedure Tolerated Well [See Physician Procedure note for Specifics] Pain Scale: 0-10 Numeric [Pain] -Is Patient Pain Free? Yes Musculoskeletal: No Tenderness to Palpation of Joints or Extremities, Muscle Wasting Neurological: - - Lack of epicritic sensation light touch is consistent with neuropathy status Psych/Mental Status: Normal Affect, Appropriate Debridement Note Post-Debridement Measurements/Treatment WC - Nurse 2 - General Ulcer CM Notes Start: 10/27/19 08:10 Freq: Status: Active Protocol: Activity Type Activity Date Activity User E-Sign Co-Sign Detail Recorded Client Recorded Date Recorded By Document 10/27/19 08:27 [id number] 10/27/19 08:29 Document 11/03/19 08:34 [id number] 11/03/19 08:36 Document 11/10/19 08:59 [id number] 11/10/19 09:03 10/27/19 11/03/19 11/10/19 08:27 08:34 08:59 Wound Center Nurse 2 3-left posterior heel -Time 08:28 08:35 -Correct Patient Yes Yes No -Correct Side, Site, Position Yes Yes No -Correct Procedure Yes Yes No -Procedure Performed Yes Yes No -Type of Procedure Debridement Debridement -Clinical Debridement Subcutaneous Subcutaneous -Post Debridement Size (cm) - Length 1.1 0.8 0 -Post Debridement Size (cm) - Width 0.4 0.5 0 -Post Debridement Size (cm) - Depth 0.5 0.2 0 -Total Square Cm 0.44 0.40 0 -Wound/Ulcer Outcome Not Healed Not Healed Healed- Epithelialized -Ulcer Cleansing Rinsed/ Rinsed/ Irrigated with Irrigated with Saline Saline -Foul Odor after Cleansing No No -Bioengineered Tissue No No -Bleeding Controlled with Pressure Pressure -Offloading Yes Yes -Type of Offloading Knee Walker Knee Walker -Treatment Response Procedure Procedure Tolerated Well Tolerated Well #1 Left Heel -Time 08:28 08:35 09:01 -Correct Patient Yes Yes Yes -Correct Side, Site, Position Yes Yes Yes -Correct Procedure Yes Yes Yes -Procedure Performed Yes Yes Yes -Type of Procedure Debridement Debridement Debridement -Clinical Debridement Subcutaneous Subcutaneous Subcutaneous -Post Debridement Size (cm) - Length 1.2 1.3 1.1 -Post Debridement Size (cm) - Width 0.9 1.1 1.0 -Post Debridement Size (cm) - Depth 0.8 0.5 0.4 -Total Square Cm 1.08 1.43 1.10 -Wound/Ulcer Outcome Not Healed Not Healed Not Healed -Ulcer Cleansing Rinsed/ Rinsed/ Rinsed/ Irrigated with Irrigated with Irrigated with Saline Saline Saline -Foul Odor after Cleansing No No No -Bioengineered Tissue No No No -Bleeding Controlled with Pressure Pressure Pressure -Offloading Yes Yes Yes -Type of Offloading Knee Walker Knee Walker Knee Walker -Treatment Response Procedure Procedure Procedure Tolerated Well Tolerated Well Tolerated Well Pain Scale: 0-10 Numeric Is Patient Pain Free? Yes Yes Yes Wound debrided: plantar heel Laterality: Left Wound Grade/Stage: grade 3 Type of Debridement: Excisional debridement Anesthesia Used: 5% Lidocaine Gel Depth: in the subcutaneous layer Percentage of wound debrided: 100 Instrument Used: #15 blade Tissue Removed: fibrous, devitalized subcutaneous, biofilm, slough Severity: Fat Layer Exposed Amount of bleeding with debridement: Mild Bleeding Controlled with: Pressure Patient tolerated procedure well Assessment/Plan Active Problems (Last Reviewed 09/15/19 @ 08:[address] Td Bronson MD) PVD (peripheral vascular disease) (Chronic) Type 2 diabetes mellitus with diabetic polyneuropathy (Chronic) Chronic ulcer of left foot with fat layer exposed (Chronic) Type 2 diabetes mellitus with diabetic polyneuropathy (Chronic) Malnutrition (Chronic) Assessment: Left heel ulcer, prior bacterial contamination with multiple organisms with previous grade 3 ulcer status with osteomyelitis. left heel medial ulcer with cellulitis/localized infection healed and resolved. Left Achilles rupture healed. Peripheral vascular disease with recent intervention performed. Diabetes with neuropathy. Malnutrition. Other comorbidities. Walking difficulty. Delayed healing Plan: This patient was examined and evaluated today. I reviewed and discussed his case. Subcutaneous excisional debridement was performed as noted in the clinical panel. His signs of infection have resolved and I recommend continued [place] antimicrobial medical grade soap wash daily. He also recommended a refill of Augmentin and ciprofloxacin; he was advised to complete this course including the recent refill. He was also advised to take a probiotic of greater than 40 billion to reduce his risk of recurrence of C. difficile or other antibiotic related side effects. Labs were reviewed and white blood cell count was 8 and ESR was 28. Microbiology report demonstrated Staphylococcus aureus, kocuria kristinae, acinobacter luvoffi. He was advised to continue knee roller use at home to aid with compliance. He is demonstrating some signs of healing improvement since he is recently been revascularized and the wound size is also reduced to the plantar aspect of the heel. He certainly has many comorbidities and this makes him higher risk for infection and delayed healing. It is noted his noninvasive vascular studies were abnormal again and he has had previous lower extremity ulcers with significant delayed healing. He saw Dr. Beck and angiogram was performed recently. To follow-up as scheduled. We also discussed the treatment option of hyperbaric oxygen therapy because he does have a grade 3 ulcer and prior diagnosis of osteomyelitis. He is not able to come to the wound care center on a daily basis and is not ready to commit to this process. The indications, planned application, anticipated healing time management and benefits and complications were discussed. I answered his questions. We also discussed transitioning him to a palliative care program. He recently had surgical intervention and advanced wound product applied and would like to give that a little bit more time because he is demonstrating recent improvement. He is understanding the wound care plan would like to proceed at this time. He will monitor this closely at home especially during this time of the coronavirus pandemic are trying to prevent possible exposure unless necessary. To return to the wound healing center 1 week or call sooner if you have any questions or concerns. 2019 [facility] entry-. Reviewed today: He denies falling within the past year. His medication allergy profile has been reconciled. Reviewed August 18, 2019: He is having a current smoking status and cessation intervention was advised. His blood pressure is 163/94 which is elevated. I recommend he follows up with his primary care physician due to associated risk factors. He is advised to maintain appropriate activity and diet as well. He does have an advanced care plan on file. His pneumococcal influenza immunization status was also reviewed.
[2019-11-17 08:10] VITALS: BP 165/85; PULSE 85; RESP 18; TEMP 36.3; BMI 27.3
--- NOTE | 2019-11-17 09:01 | PN.PCM_ITS ---
(1) Cellulitis of left foot Status: Resolved Current Visit: Yes Code(s): L03.116 - Cellulitis of left lower limb (2) PVD (peripheral vascular disease) Status: Chronic Current Visit: Yes Code(s): I73.9 - Peripheral vascular disease, unspecified (3) Type 2 diabetes mellitus with diabetic polyneuropathy Status: Chronic Current Visit: Yes Code(s): E11.42 - Type 2 diabetes mellitus with diabetic polyneuropathy (4) Chronic ulcer of left foot with fat layer exposed Status: Chronic Current Visit: Yes Code(s): L97.522 - Non-pressure chronic ulcer of other part of left foot with fat layer exposed (5) Type 2 diabetes mellitus with diabetic polyneuropathy Status: Chronic Current Visit: Yes Code(s): E11.42 - Type 2 diabetes mellitus with diabetic polyneuropathy (6) Malnutrition Status: Chronic Current Visit: Yes Code(s): E46 - Unspecified protein- calorie malnutrition Type of Wound Date of Service: 11/17/19 Chief Complaint: Left heel ulcer History of Wound: This 74-year-old male with multiple comorbidities was seen today for left plantar heel ulcer. He continues to remain nonweightbearing. He had vascular surgery intervention performed recently with Dr. Beck and underwent vascular intervention. He has a follow-up scheduled today with him. He defers additional advanced treatment such as hyperbaric oxygen. He is unable to transport on his own without assistance. He is currently ambulating with the assistance of a knee scooter. He denies fever, chill, nausea, vomiting, loss of appetite, or diarrhea. He denies redness or odor coming from the foot. It is noted he has had significant delays in healing and with his recent revascularization and improvement this is important for limb salvage. [facility] has been helping him daily with CITTIO. He completed a course of antibiotics and thinks he is doing much better. He was advised to start probiotics and has not done this yet. Progress of Wound: Improving. Healed medial ulcer site with resolution of infection - Physical Exam Vital Signs Temp Pulse Resp BP 97.3 F L 85 18 165/85 H 11/17/19 08:10 11/17/19 08:10 11/17/19 08:10 11/17/19 08:10 General: Alert, Oriented x3, Cooperative, No apparent distress Extremities: No cyanosis, Capillary Refill Less than 3 Seconds, No Calf Tenderness, Diminished Peripheral Pulses, Edema Skin: Ulcer/ Wound - No purulence, no erythema, string, no odor, no infection. Improvement in granulation tissue. Atrophic and hairless adjacent skin Wound Measurements and Assessment WC - Nurse 1 - General Ulcer Measurement Start: 10/27/19 08:10 Freq: Status: Active Protocol: Activity Type Activity Date Activity User E-Sign Co-Sign Detail Recorded Client Recorded Date Recorded By Document 11/17/19 08:10 DV [id number] 11/17/19 08:18 DV 11/17/19 08:10 Wound Center Nurse 1 [Ulcer Assessment] #1 Left Heel -Combined with other wound No -Current Size (cm) - Length 1.0 -Current Size (cm) - Width 1.0 -Current Size (cm) - Depth 1.0 -Total Square Cm 1.00 -Photo Taken No -Epithelialization Small 1-33% -Tunneling No -Undermining/Tunneling No -Circular Undermining No -Exudate Amt Small -Exudate Type Serous -Wound Margin Indistinct, Non -Visible -Granulation Amt None Present (0 %) -Granulation Quality N/A -Slough/Fibrin Yes -Necrosis Amt Small (1-33%) -Necrotic Tissue Type Adherent Slough -Structure Exposed None/Limited to Skin Breakdown -Texture (Emily-wound Skin Appearance) Assessed, Scarring -Moisture (Emily-wound Skin Appearance Assessed, ) Weeping -Color (Emily-wound Skin Appearance) No Abnormality, Assessed -Temperature (Emily-wound Skin No Abnormality Appearance) (Pt Warm) -Tenderness on Palpation (Emily-wound No Skin Appearance) -Ulcer Cleansing Rinsed/ Irrigated with Saline -Foul Odor after Cleansing No -Anesthetic Used 5% Lidocaine Gel [Edema Assessment] -Lower Limb Edema Present No WC - Nurse 2 - General Ulcer CM Notes Start: 10/27/19 08:10 Freq: Status: Active Protocol: Activity Type Activity Date Activity User E-Sign Co-Sign Detail Recorded Client Recorded Date Recorded By Document 11/17/19 08:28 JF [id number] 11/17/19 08:31 JF 11/17/19 08:28 Wound Center Nurse 2 [Procedure/Treatment] #1 Left Heel -Time 08:28 -Correct Patient Yes -Correct Side, Site, Position Yes -Correct Procedure Yes -Procedure Performed Yes -Type of Procedure Debridement -Clinical Debridement Subcutaneous -Post Debridement Size (cm) - Length 1.2 -Post Debridement Size (cm) - Width 1.5 -Post Debridement Size (cm) - Depth 0.5 -Total Square Cm 1.80 -Wound/Ulcer Outcome Not Healed -Ulcer Cleansing Rinsed/ Irrigated with Saline -Foul Odor after Cleansing No -Bioengineered Tissue No -Bleeding Controlled with Pressure -Offloading Yes -Type of Offloading Knee Walker -Treatment Response Procedure Tolerated Well [See Physician Procedure note for Specifics] Pain Scale: 0-10 Numeric [Pain] -Is Patient Pain Free? Yes Musculoskeletal: No Tenderness to Palpation of Joints or Extremities, Muscle Wasting Neurological: - - Lack of normal epicritic sensation light touch is consistent with neuropathy status Psych/Mental Status: Normal Affect, Appropriate Debridement Note Post-Debridement Measurements/Treatment WC - Nurse 2 - General Ulcer CM Notes Start: 10/27/19 08:10 Freq: Status: Active Protocol: Activity Type Activity Date Activity User E-Sign Co-Sign Detail Recorded Client Recorded Date Recorded By Document 10/27/19 08:27 [id number] 10/27/19 08:29 Document 11/03/19 08:34 [id number] 11/03/19 08:36 Document 11/10/19 08:59 [id number] 11/10/19 09:03 Document 11/17/19 08:28 [id number] 11/17/19 08:31 10/27/19 11/03/19 11/10/19 08:27 08:34 08:59 Wound Center Nurse 2 3-left posterior heel -Time 08:28 08:35 -Correct Patient Yes Yes No -Correct Side, Site, Position Yes Yes No -Correct Procedure Yes Yes No -Procedure Performed Yes Yes No -Type of Procedure Debridement Debridement -Clinical Debridement Subcutaneous Subcutaneous -Post Debridement Size (cm) - Length 1.1 0.8 0 -Post Debridement Size (cm) - Width 0.4 0.5 0 -Post Debridement Size (cm) - Depth 0.5 0.2 0 -Total Square Cm 0.44 0.40 0 -Wound/Ulcer Outcome Not Healed Not Healed Healed- Epithelialized -Ulcer Cleansing Rinsed/ Rinsed/ Irrigated with Irrigated with Saline Saline -Foul Odor after Cleansing No No -Bioengineered Tissue No No -Bleeding Controlled with Pressure Pressure -Offloading Yes Yes -Type of Offloading Knee Walker Knee Walker -Treatment Response Procedure Procedure Tolerated Well Tolerated Well #1 Left Heel -Time 08:28 08:35 09:01 -Correct Patient Yes Yes Yes -Correct Side, Site, Position Yes Yes Yes -Correct Procedure Yes Yes Yes -Procedure Performed Yes Yes Yes -Type of Procedure Debridement Debridement Debridement -Clinical Debridement Subcutaneous Subcutaneous Subcutaneous -Post Debridement Size (cm) - Length 1.2 1.3 1.1 -Post Debridement Size (cm) - Width 0.9 1.1 1.0 -Post Debridement Size (cm) - Depth 0.8 0.5 0.4 -Total Square Cm 1.08 1.43 1.10 -Wound/Ulcer Outcome Not Healed Not Healed Not Healed -Ulcer Cleansing Rinsed/ Rinsed/ Rinsed/ Irrigated with Irrigated with Irrigated with Saline Saline Saline -Foul Odor after Cleansing No No No -Bioengineered Tissue No No No -Bleeding Controlled with Pressure Pressure Pressure -Offloading Yes Yes Yes -Type of Offloading Knee Walker Knee Walker Knee Walker -Treatment Response Procedure Procedure Procedure Tolerated Well Tolerated Well Tolerated Well Pain Scale: 0-10 Numeric Is Patient Pain Free? Yes Yes Yes 11/17/19 08:28 Wound Center Nurse 2 3-left posterior heel -Time -Correct Patient -Correct Side, Site, Position -Correct Procedure -Procedure Performed -Type of Procedure -Clinical Debridement -Post Debridement Size (cm) - Length -Post Debridement Size (cm) - Width -Post Debridement Size (cm) - Depth -Total Square Cm -Wound/Ulcer Outcome -Ulcer Cleansing -Foul Odor after Cleansing -Bioengineered Tissue -Bleeding Controlled with -Offloading -Type of Offloading -Treatment Response #1 Left Heel -Time 08:28 -Correct Patient Yes -Correct Side, Site, Position Yes -Correct Procedure Yes -Procedure Performed Yes -Type of Procedure Debridement -Clinical Debridement Subcutaneous -Post Debridement Size (cm) - Length 1.2 -Post Debridement Size (cm) - Width 1.5 -Post Debridement Size (cm) - Depth 0.5 -Total Square Cm 1.80 -Wound/Ulcer Outcome Not Healed -Ulcer Cleansing Rinsed/ Irrigated with Saline -Foul Odor after Cleansing No -Bioengineered Tissue No -Bleeding Controlled with Pressure -Offloading Yes -Type of Offloading Knee Walker -Treatment Response Procedure Tolerated Well Pain Scale: 0-10 Numeric Is Patient Pain Free? Yes Wound debrided: plantar heel Laterality: Left Wound Grade/Stage: grade 3 Type of Debridement: Excisional debridement Anesthesia Used: 5% Lidocaine Gel Depth: in the subcutaneous layer Percentage of wound debrided: 100 Instrument Used: #15 blade Tissue Removed: fibrous, devitalized subcutaneous, biofilm, slough Severity: Fat Layer Exposed Amount of bleeding with debridement: Mild Bleeding Controlled with: Pressure Patient tolerated procedure well Assessment/Plan Active Problems (Last Reviewed 09/15/19 @ 08:[address] Td Bronson MD) PVD (peripheral vascular disease) (Chronic) Type 2 diabetes mellitus with diabetic polyneuropathy (Chronic) Chronic ulcer of left foot with fat layer exposed (Chronic) Type 2 diabetes mellitus with diabetic polyneuropathy (Chronic) Malnutrition (Chronic) Assessment: Left heel ulcer, prior bacterial contamination with multiple organisms with previous grade 3 ulcer status with osteomyelitis. Left Achilles rupture healed. Peripheral vascular disease with recent intervention performed. Diabetes with neuropathy. Malnutrition. Other comorbidities. Walking difficulty. Delayed healing Plan: This patient was examined and evaluated today. I reviewed and discussed his case. Subcutaneous excisional debridement was performed as noted in the clinical panel. His signs of infection have resolved and I recommend continued [facility] antimicrobial medical grade soap wash daily. he completed the refill of Augmentin and ciprofloxacin. He was also advised to take a probiotic of greater than 40 billion to reduce his risk of recurrence of C. difficile or other antibiotic related side effects. He did not start this yet. Labs were reviewed and white blood cell count was 8 and ESR was 28. Microbiology report demonstrated Staphylococcus aureus, kocuria kristinae, acinobacter luvoffi. He was advised to continue knee roller use at home to aid with compliance. He is demonstrating some signs of healing improvement since he is recently been revascularized and the wound size is also reduced to the plantar aspect of the heel. He certainly has many comorbidities and this makes him higher risk for infection and delayed healing. It is noted his noninvasive vascular studies were abnormal again and he has had previous lower extremity ulcers with significant delayed healing. He saw Dr. Beck and angiogram was performed recently. To follow-up as scheduled later today. We also discussed the treatment option of hyperbaric oxygen therapy because he does have a grade 3 ulcer and prior diagnosis of osteomyelitis. He is not able to come to the wound care center on a daily basis and is not ready to commit to this process. The indications, planned application, anticipated healing time management and benefits and complications were discussed. I answered his questions. We also discussed transitioning him to a palliative care program. He recently had surgical intervention and advanced wound product applied and would like to give that a little bit more time because he is demonstrating recent improvement. He is understanding the wound care plan would like to proceed at this time. To return to the wound healing center 1 week or call sooner if you have any questions or concerns. 2019 [facility] entry-. Reviewed today: He denies falling within the past year. His medication allergy profile has been reconciled. Reviewed August 18, 2019: He is having a current smoking status and cessation intervention was advised. His blood pressure is 163/94 which is elevated. I recommend he follows up with his primary care physician due to associated risk factors. He is advised to maintain appropriate activity and diet as well. He does have an advanced care plan on file. His pneumococcal influenza immunization status was also reviewed.
[2019-11-24 08:16] VITALS: BP 154/79; PULSE 77; RESP 18; TEMP 36.6; BMI 27.3
--- NOTE | 2019-11-24 08:42 | PCM.WC.PN ---
(1) Chronic ulcer of left foot with fat layer exposed Status: Chronic Current Visit: Yes Code(s): L97.522 - Non-pressure chronic ulcer of other part of left foot with fat layer exposed (2) PVD (peripheral vascular disease) Status: Chronic Current Visit: Yes Code(s): I73.9 - Peripheral vascular disease, unspecified (3) Type 2 diabetes mellitus with diabetic polyneuropathy Status: Chronic Current Visit: Yes Code(s): E11.42 - Type 2 diabetes mellitus with diabetic polyneuropathy (4) Type 2 diabetes mellitus with diabetic polyneuropathy Status: Chronic Current Visit: Yes Code(s): E11.42 - Type 2 diabetes mellitus with diabetic polyneuropathy (5) Malnutrition Status: Chronic Current Visit: Yes Code(s): E46 - Unspecified protein-calorie malnutrition Type of Wound Date of Service: 11/24/19 Chief Complaint: Left heel ulcer History of Wound: This 74-year-old male with multiple comorbidities was seen today for left plantar heel ulcer. He continues to remain nonweightbearing. He had vascular surgery intervention performed recently with Dr. Beck and underwent vascular intervention. He defers additional advanced treatment such as hyperbaric oxygen. He is unable to transport on his own without assistance. He is currently ambulating with the assistance of a knee scooter. He denies fever, chill, nausea, vomiting, loss of appetite, or diarrhea. He denies redness or odor coming from the foot. It is noted he has had significant delays in healing and with his recent revascularization and improvement this is important for limb salvage. Home health has been helping him daily with [facility]. He completed a course of antibiotics and thinks he is doing much better. He was advised to start probiotics. Progress of Wound: Improving - Physical Exam Vital Signs Temp Pulse Resp BP 98 F 77 18 154/79 H 11/24/19 08:16 11/24/19 08:16 11/24/19 08:16 11/24/19 08:16 General: Alert, Oriented x3, Cooperative, No apparent distress Extremities: No cyanosis, Capillary Refill Less than 3 Seconds, No Calf Tenderness, Diminished Peripheral Pulses, Edema Skin: Ulcer/ Wound - No purulence, odor, erythema, streaking, infection. The ulcer is now C-shaped with continued epithelialization migration from the medial aspect. Skin is hairless and atrophic Wound Measurements and Assessment WC - Nurse 1 - General Ulcer Measurement Start: 10/27/19 08:10 Freq: Status: Active Protocol: Activity Type Activity Date Activity User E-Sign Co-Sign Detail Recorded Client Recorded Date Recorded By Document 11/24/19 08:16 RB [id number] 11/24/19 08:18 RB 11/24/19 08:16 Wound Center Nurse 1 [Ulcer Assessment] #1 Left Heel -Combined with other wound No -Current Size (cm) - Length 1 -Current Size (cm) - Width 1.4 -Current Size (cm) - Depth 0.6 -Total Square Cm 1.4 -Tunneling No -Undermining/Tunneling No -Circular Undermining No -Exudate Amt Small -Exudate Type Serosanguineous -Wound Margin Thickened -Granulation Amt Medium (34-66%) -Granulation Quality Baxter -Necrosis Amt Medium (34-66%) -Necrotic Tissue Type Adherent Slough -Structure Exposed N/A -Texture (Emily-wound Skin Appearance) Callus -Moisture (Emily-wound Skin Appearance Assessed ) -Color (Emily-wound Skin Appearance) Assessed -Temperature (Emily-wound Skin No Abnormality Appearance) (Pt Warm) -Tenderness on Palpation (Emily-wound No Skin Appearance) -Ulcer Cleansing Wound Cleanser -Foul Odor after Cleansing No -Anesthetic Used 4% Lidocaine Solution - Nurse 2 - General Ulcer CM Notes Start: 10/27/19 08:10 Freq: Status: Active Protocol: Activity Type Activity Date Activity User E-Sign Co-Sign Detail Recorded Client Recorded Date Recorded By Document 11/24/19 08:31 GAGE [id number] 11/24/19 08:33 GAGE 11/24/19 08:31 Wound Center Nurse 2 [Procedure/Treatment] -Time 08:31 -Correct Patient Yes -Correct Side, Site, Position Yes -Correct Procedure Yes -Procedure Performed Yes -Type of Procedure Debridement -Clinical Debridement Subcutaneous -Post Debridement Size (cm) - Length 1.4 -Post Debridement Size (cm) - Width 1.2 -Post Debridement Size (cm) - Depth 0.4 -Total Square Cm 1.68 -Wound/Ulcer Outcome Not Healed -Ulcer Cleansing Rinsed/ Irrigated with Saline -Foul Odor after Cleansing No -Bioengineered Tissue No -Bleeding Controlled with Pressure -Offloading Yes -Type of Offloading Knee Walker -Treatment Response Procedure Tolerated Well [See Physician Procedure note for Specifics] Pain Scale: 0-10 Numeric [Pain] -Is Patient Pain Free? Yes Musculoskeletal: No Tenderness to Palpation of Joints or Extremities, Muscle Wasting Neurological: - - Lack of epicritic sensation light touch is consistent with neuropathy status Psych/Mental Status: Normal Affect, Appropriate Debridement Note Post-Debridement Measurements/Treatment WC - Nurse 2 - General Ulcer CM Notes Start: 10/27/19 08:10 Freq: Status: Active Protocol: Activity Type Activity Date Activity User E-Sign Co-Sign Detail Recorded Client Recorded Date Recorded By Document 10/27/19 08:27 [id number] 10/27/19 08:29 Document 11/03/19 08:34 [id number] 11/03/19 08:36 Document 11/10/19 08:59 JF [id number] 11/10/19 09:03 Document 11/17/19 08:28 [id number] 11/17/19 08:31 Document 11/24/19 08:31 [id number] 11/24/19 08:33 JF 10/27/19 11/03/19 11/10/19 08:27 08:34 08:59 Wound Center Nurse 2 3-left posterior heel -Time 08:28 08:35 -Correct Patient Yes Yes No -Correct Side, Site, Position Yes Yes No -Correct Procedure Yes Yes No -Procedure Performed Yes Yes No -Type of Procedure Debridement Debridement -Clinical Debridement Subcutaneous Subcutaneous -Post Debridement Size (cm) - Length 1.1 0.8 0 -Post Debridement Size (cm) - Width 0.4 0.5 0 -Post Debridement Size (cm) - Depth 0.5 0.2 0 -Total Square Cm 0.44 0.40 0 -Wound/Ulcer Outcome Not Healed Not Healed Healed- Epithelialized -Ulcer Cleansing Rinsed/ Rinsed/ Irrigated with Irrigated with Saline Saline -Foul Odor after Cleansing No No -Bioengineered Tissue No No -Bleeding Controlled with Pressure Pressure -Offloading Yes Yes -Type of Offloading Knee Walker Knee Walker -Treatment Response Procedure Procedure Tolerated Well Tolerated Well #1 Left Heel -Time 08:28 08:35 09:01 -Correct Patient Yes Yes Yes -Correct Side, Site, Position Yes Yes Yes -Correct Procedure Yes Yes Yes -Procedure Performed Yes Yes Yes -Type of Procedure Debridement Debridement Debridement -Clinical Debridement Subcutaneous Subcutaneous Subcutaneous -Post Debridement Size (cm) - Length 1.2 1.3 1.1 -Post Debridement Size (cm) - Width 0.9 1.1 1.0 -Post Debridement Size (cm) - Depth 0.8 0.5 0.4 -Total Square Cm 1.08 1.43 1.10 -Wound/Ulcer Outcome Not Healed Not Healed Not Healed -Ulcer Cleansing Rinsed/ Rinsed/ Rinsed/ Irrigated with Irrigated with Irrigated with Saline Saline Saline -Foul Odor after Cleansing No No No -Bioengineered Tissue No No No -Bleeding Controlled with Pressure Pressure Pressure -Offloading Yes Yes Yes -Type of Offloading Knee Walker Knee Walker Knee Walker -Treatment Response Procedure Procedure Procedure Tolerated Well Tolerated Well Tolerated Well Pain Scale: 0-10 Numeric Is Patient Pain Free? Yes Yes Yes 11/17/19 11/24/19 08:28 08:31 Wound Center Nurse 2 3-left posterior heel -Time -Correct Patient -Correct Side, Site, Position -Correct Procedure -Procedure Performed -Type of Procedure -Clinical Debridement -Post Debridement Size (cm) - Length -Post Debridement Size (cm) - Width -Post Debridement Size (cm) - Depth -Total Square Cm -Wound/Ulcer Outcome -Ulcer Cleansing -Foul Odor after Cleansing -Bioengineered Tissue -Bleeding Controlled with -Offloading -Type of Offloading -Treatment Response #1 Left Heel -Time 08:28 08:31 -Correct Patient Yes Yes -Correct Side, Site, Position Yes Yes -Correct Procedure Yes Yes -Procedure Performed Yes Yes -Type of Procedure Debridement Debridement -Clinical Debridement Subcutaneous Subcutaneous -Post Debridement Size (cm) - Length 1.2 1.4 -Post Debridement Size (cm) - Width 1.5 1.2 -Post Debridement Size (cm) - Depth 0.5 0.4 -Total Square Cm 1.80 1.68 -Wound/Ulcer Outcome Not Healed Not Healed -Ulcer Cleansing Rinsed/ Rinsed/ Irrigated with Irrigated with Saline Saline -Foul Odor after Cleansing No No -Bioengineered Tissue No No -Bleeding Controlled with Pressure Pressure -Offloading Yes Yes -Type of Offloading Knee Walker Knee Walker -Treatment Response Procedure Procedure Tolerated Well Tolerated Well Pain Scale: 0-10 Numeric Is Patient Pain Free? Yes Yes Wound debrided: plantar heel Laterality: Left Wound Grade/Stage: grade 3 Type of Debridement: Excisional debridement Anesthesia Used: 5% Lidocaine Gel Depth: in the subcutaneous layer Percentage of wound debrided: 100 Instrument Used: #15 blade Tissue Removed: fibrous, devitalized subcutaneous, biofilm, slough Severity: Fat Layer Exposed Amount of bleeding with debridement: Mild Bleeding Controlled with: Pressure Patient tolerated procedure well Assessment/Plan Active Problems (Last Reviewed 09/15/19 @ 08:[address] Td Bronson MD) PVD (peripheral vascular disease) (Chronic) Type 2 diabetes mellitus with diabetic polyneuropathy (Chronic) Chronic ulcer of left foot with fat layer exposed (Chronic) Type 2 diabetes mellitus with diabetic polyneuropathy (Chronic) Malnutrition (Chronic) Assessment: Left heel ulcer, prior bacterial contamination with multiple organisms with previous grade 3 ulcer status with osteomyelitis. Left Achilles rupture healed. Peripheral vascular disease with recent intervention performed. Diabetes with neuropathy. Malnutrition. Other comorbidities. Walking difficulty. Delayed healing Plan: This patient was examined and evaluated today. I reviewed and discussed his case. Subcutaneous excisional debridement was performed as noted in the clinical panel. It is okay to progress to Dial soap and water wash each day. I do not recommend additional antibiotics at this time. He completed the refill of Augmentin and ciprofloxacin. He was also advised to take a probiotic of greater than 40 billion to reduce his risk of recurrence of C. difficile or other antibiotic related side effects. He did not start this yet. Labs were reviewed and white blood cell count was 8 and ESR was 28. Microbiology report demonstrated Staphylococcus aureus, kocuria kristinae, acinobacter luvoffi. He was advised to continue knee roller use at home to aid with compliance. He is demonstrating some signs of healing improvement since he is recently been revascularized and the wound size is also reduced to the plantar aspect of the heel. He certainly has many comorbidities and this makes him higher risk for infection and delayed healing. It is noted his noninvasive vascular studies were abnormal again and he has had previous lower extremity ulcers with significant delayed healing. He saw Dr. Beck and angiogram was performed recently. To follow-up as scheduled later today. We also discussed the treatment option of hyperbaric oxygen therapy because he does have a grade 3 ulcer and prior diagnosis of osteomyelitis. He is not able to come to the wound care center on a daily basis and is not ready to commit to this process. The indications, planned application, anticipated healing time management and benefits and complications were discussed. I answered his questions. We also discussed transitioning him to a palliative care program. He recently had surgical intervention and advanced wound product applied and would like to give that a little bit more time because he is demonstrating recent improvement. He is understanding the wound care plan would like to proceed at this time. To return to the wound healing center 1 week or call sooner if you have any questions or concerns. [facility] entry-. Reviewed today: He denies falling within the past year. His medication allergy profile has been reconciled. Reviewed August 18, 2019: He is having a current smoking status and cessation intervention was advised. His blood pressure is 163/94 which is elevated. I recommend he follows up with his primary care physician due to associated risk factors. He is advised to maintain appropriate activity and diet as well. He does have an advanced care plan on file. His pneumococcal influenza immunization status was also reviewed.
== END 2019-11-25 23:59 ==
LOC: WC 08:00
PROVIDERS: Family Provider Family Medicine; PCP Family Medicine; Referring Provider Podiatrist; Visit Provider Podiatrist
DX: E11.621 Type 2 diabetes mellitus with foot ulcer (principal); E11.42 Type 2 diabetes mellitus with diabetic polyneuropathy; E11.51 Type 2 diabetes mellitus with diabetic peripheral angiopathy without gangrene; L97.422 Non-pressure chronic ulcer of left heel and midfoot with fat layer exposed; R26.2 Difficulty in walking, not elsewhere classified; L03.116 Cellulitis of left lower limb
CPT/HCPCS: 11042; 85025; 85652; 87070; 87075; 87077; 87186; 87205; 87640

== ENCOUNTER 2019-12-22 08:00 | Outpatient (RCR) | payer MEDICARE, SELFPAY ==
[2019-11-26 00:09] VITALS: BP 154/79; PULSE 77; RESP 18; TEMP 36.6
[2019-12-01 08:18] VITALS: BP 167/83; PULSE 67; RESP 18; TEMP 36.8; BMI 27.3
--- NOTE | 2019-12-01 09:05 | PCM.WC.PN ---
(1) Peripheral vascular disease Status: Chronic Current Visit: Yes Code(s): I73.9 - Peripheral vascular disease, unspecified (2) Type 2 diabetes mellitus with diabetic polyneuropathy Status: Chronic Current Visit: Yes Code(s): E11.42 - Type 2 diabetes mellitus with diabetic polyneuropathy (3) EtOH dependence Status: Chronic Current Visit: Yes Code(s): F10.20 - Alcohol dependence, uncomplicated (4) Chronic ulcer of left foot with fat layer exposed Status: Chronic Current Visit: Yes Code(s): L97.522 - Non-pressure chronic ulcer of other part of left foot with fat layer exposed (5) Delayed wound healing Status: Chronic Current Visit: Yes Code(s): T14.8XXD - Other injury of unspecified body region, subsequent encounter Type of Wound Date of Service: 12/01/19 Chief Complaint: Left heel ulcer History of Wound: This 74-year-old male with multiple comorbidities was seen today for left plantar heel ulcer. He continues to remain nonweightbearing. He had vascular surgery intervention performed recently with Dr. Beck and underwent vascular intervention. He defers additional advanced treatment such as hyperbaric oxygen. He is unable to transport on his own without assistance. He is currently ambulating with the assistance of a knee scooter. He denies fever, chill, nausea, vomiting, loss of appetite, or diarrhea. He denies redness or odor coming from the foot. It is noted he has had significant delays in healing and with his recent revascularization and improvement this is important for limb salvage. Home health has been helping him daily with [employer]. He has had intermittent infections and does not have one currently. He relates a new wound has opened to the medial heel. He is seriously considering going on a palliative care plan because coming in every week is affecting his lifestyle. He admits he fell off the wagon this week when he resumed drinking 4-5 beers on Friday. He relates he previously was drinking 10-14 beers a day and stopped in August. Progress of Wound: Improving Plantar heel. New medial heel ulcer - Physical Exam Vital Signs Temp Pulse Resp BP 98.3 F 67 18 167/83 H 12/01/19 08:18 12/01/19 08:18 12/01/19 08:18 12/01/19 08:18 General: Alert, Oriented x3, Cooperative, No apparent distress Extremities: No cyanosis, Capillary Refill Less than 3 Seconds, No Calf Tenderness, Diminished Peripheral Pulses, Edema Skin: Ulcer/ Wound - No purulence, erythema, streaking, odor, infection. There is new skin discontinuity to the medial heel with granular base and peeling skin. There is no deep tissue exposed or deep probing. The adjacent skin is hairless and atrophic Wound Measurements and Assessment WC - Nurse 1 - General Ulcer Measurement Start: 12/01/19 08:18 Freq: Status: Active Protocol: Activity Type Activity Date Activity User E-Sign Co-Sign Detail Recorded Client Recorded Date Recorded By Document 12/01/19 08:18 DL [id number] 12/01/19 08:21 DL 12/01/19 08:18 Wound Center Nurse 1 [Ulcer Assessment] 3-left posterior heel -Current Size (cm) - Length 0.7 -Current Size (cm) - Width 1 -Current Size (cm) - Depth 0.1 -Total Square Cm 0.7 -Photo Taken No -Exudate Amt Small -Exudate Type Serosanguineous -Wound Margin Thickened -Granulation Amt Small (1-33%) -Granulation Quality [place],Red -Necrosis Amt Medium (34-66%) -Necrotic Tissue Type Adherent Slough -Structure Exposed N/A -Texture (Emily-wound Skin Appearance) Callus,Scarring -Moisture (Emily-wound Skin Appearance Dry/Scaly ) -Color (Emily-wound Skin Appearance) No Abnormality -Temperature (Emily-wound Skin No Abnormality Appearance) (Pt Warm) -Tenderness on Palpation (Emily-wound No Skin Appearance) -Ulcer Cleansing Wound Cleanser -Foul Odor after Cleansing No -Anesthetic Used 4% Lidocaine Solution #1 Left Heel -Current Size (cm) - Length 1 -Current Size (cm) - Width 1.2 -Current Size (cm) - Depth 0.8 -Total Square Cm 1.2 -Photo Taken No -Undermining/Tunneling Starts (O' 9 clock) -Undermining/Tunneling Ends (O'clock) 12 -Maximum Distance (cm) 0.5 -Exudate Amt Small -Exudate Type Serosanguineous -Wound Margin Thickened -Granulation Amt Medium (34-66%) -Granulation Quality Red -Necrosis Amt Medium (34-66%) -Necrotic Tissue Type Adherent Slough -Structure Exposed N/A -Texture (Emily-wound Skin Appearance) Callus,Scarring -Moisture (Emily-wound Skin Appearance Dry/Scaly ) -Color (Emily-wound Skin Appearance) No Abnormality -Temperature (Emily-wound Skin No Abnormality Appearance) (Pt Warm) -Tenderness on Palpation (Emily-wound No Skin Appearance) -Ulcer Cleansing Wound Cleanser -Foul Odor after Cleansing No -Anesthetic Used 4% Lidocaine Solution WC - Nurse 2 - General Ulcer CM Notes Start: 12/01/19 08:18 Freq: Status: Active Protocol: Activity Type Activity Date Activity User E-Sign Co-Sign Detail Recorded Client Recorded Date Recorded By Document 12/01/19 08:37 JF [id number] 12/01/19 08:40 GAGE 12/01/19 08:37 Wound Center Nurse 2 [Procedure/Treatment] 3-left posterior heel -Time 08:38 -Correct Patient Yes -Correct Side, Site, Position Yes -Correct Procedure Yes -Procedure Performed Yes -Type of Procedure Debridement -Clinical Debridement Subcutaneous -Post Debridement Size (cm) - Length 0.2 -Post Debridement Size (cm) - Width 0.4 -Post Debridement Size (cm) - Depth 0.2 -Total Square Cm 0.08 -Wound/Ulcer Outcome Not Healed -Ulcer Cleansing Rinsed/ Irrigated with Saline -Foul Odor after Cleansing No -Bioengineered Tissue No -Bleeding Controlled with Pressure -Offloading Yes -Type of Offloading Knee Walker -Treatment Response Procedure Tolerated Well #1 Left Heel -Time 08:38 -Correct Patient Yes -Correct Side, Site, Position Yes -Correct Procedure Yes -Procedure Performed Yes -Type of Procedure Debridement -Clinical Debridement Subcutaneous -Post Debridement Size (cm) - Length 1.0 -Post Debridement Size (cm) - Width 1.2 -Post Debridement Size (cm) - Depth 0.7 -Total Square Cm 1.20 -Wound/Ulcer Outcome Not Healed -Ulcer Cleansing Rinsed/ Irrigated with Saline -Foul Odor after Cleansing No -Bioengineered Tissue No -Bleeding Controlled with Pressure -Offloading Yes -Type of Offloading Knee Walker -Treatment Response Procedure Tolerated Well [See Physician Procedure note for Specifics] Pain Scale: 0-10 Numeric [Pain] -Is Patient Pain Free? Yes Musculoskeletal: No Tenderness to Palpation of Joints or Extremities, Muscle Wasting Neurological: - - Normal epicritic sensation light touch is consistent with neuropathy status Psych/Mental Status: Normal Affect, Appropriate Debridement Note Post-Debridement Measurements/Treatment WC - Nurse 2 - General Ulcer CM Notes Start: 12/01/19 08:18 Freq: Status: Active Protocol: Activity Type Activity Date Activity User E-Sign Co-Sign Detail Recorded Client Recorded Date Recorded By Document 12/01/19 08:37 JF [id number] 12/01/19 08:40 GAGE 12/01/19 08:37 Wound Center Nurse 2 3-left posterior heel -Time 08:38 -Correct Patient Yes -Correct Side, Site, Position Yes -Correct Procedure Yes -Procedure Performed Yes -Type of Procedure Debridement -Clinical Debridement Subcutaneous -Post Debridement Size (cm) - Length 0.2 -Post Debridement Size (cm) - Width 0.4 -Post Debridement Size (cm) - Depth 0.2 -Total Square Cm 0.08 -Wound/Ulcer Outcome Not Healed -Ulcer Cleansing Rinsed/ Irrigated with Saline -Foul Odor after Cleansing No -Bioengineered Tissue No -Bleeding Controlled with Pressure -Offloading Yes -Type of Offloading Knee Walker -Treatment Response Procedure Tolerated Well #1 Left Heel -Time 08:38 -Correct Patient Yes -Correct Side, Site, Position Yes -Correct Procedure Yes -Procedure Performed Yes -Type of Procedure Debridement -Clinical Debridement Subcutaneous -Post Debridement Size (cm) - Length 1.0 -Post Debridement Size (cm) - Width 1.2 -Post Debridement Size (cm) - Depth 0.7 -Total Square Cm 1.20 -Wound/Ulcer Outcome Not Healed -Ulcer Cleansing Rinsed/ Irrigated with Saline -Foul Odor after Cleansing No -Bioengineered Tissue No -Bleeding Controlled with Pressure -Offloading Yes -Type of Offloading Knee Walker -Treatment Response Procedure Tolerated Well Pain Scale: 0-10 Numeric Is Patient Pain Free? Yes Wound debrided: plantar heel Laterality: Left Wound Grade/Stage: grade 3 Type of Debridement: Excisional debridement Anesthesia Used: 5% Lidocaine Gel Depth: in the subcutaneous layer Percentage of wound debrided: 100 Instrument Used: #15 blade Tissue Removed: fibrous, devitalized subucutaneous, biofilm, slough Severity: Fat Layer Exposed Amount of bleeding with debridement: Mild Bleeding Controlled with: Pressure Patient tolerated procedure well - Additional Wound Wound debrided: medial heel Laterality: Left Wound Grade/Stage: grade 1 Type of Debridement: Excisional debridement Anesthesia Used: 5% Lidocaine Gel Depth: in the subcutaneous layer Percentage of wound debrided: 100 Instrument Used: #15 blade Tissue Removed: fibrous, devitalized subucutaneous, biofilm, slough Severity: Fat Layer Exposed Amount of bleeding with debridement: Mild Bleeding Controlled with: Pressure Patient tolerated procedure: Patient tolerated procedure well Assessment/Plan Active Problems (Last Reviewed 09/15/19 @ 08:[address] Td Bronson MD) Peripheral vascular disease (Chronic) Type 2 diabetes mellitus with diabetic polyneuropathy (Chronic) EtOH dependence (Chronic) Chronic ulcer of left foot with fat layer exposed (Chronic) Delayed wound healing (Chronic) Assessment: Left heel ulcer, prior bacterial contamination with multiple organisms with previous grade 3 ulcer status with osteomyelitis. New ulcer medial left heel, stable with no infection. Left Achilles rupture healed. Peripheral vascular disease with recent intervention performed. Diabetes with neuropathy. Malnutrition. Other comorbidities. Walking difficulty. Delayed healing Plan: This patient was examined and evaluated today. His new ulcer site is noted. I reviewed and discussed his case. Subcutaneous excisional debridement was performed as noted in the clinical panel. It is okay to progress to Dial soap and water wash each day. I do not recommend additional antibiotics at this time. He completed the refill of Augmentin and ciprofloxacin. He was also advised to take a probiotic of greater than 40 billion to reduce his risk of recurrence of C. difficile or other antibiotic related side effects. He did not start this yet. Labs were reviewed and white blood cell count was 8 and ESR was 28. Microbiology report demonstrated Staphylococcus aureus, kocuria kristinae, acinobacter luvoffi. He was advised to continue knee roller use at home to aid with compliance. He is demonstrating some signs of healing improvement since he is recently been revascularized and the wound size is also reduced to the plantar aspect of the heel. He certainly has many comorbidities and this makes him higher risk for infection and delayed healing. It is noted his noninvasive vascular studies were abnormal again and he has had previous lower extremity ulcers with significant delayed healing. He saw Dr. Beck and angiogram was performed recently. To follow-up as scheduled later today. We also discussed the treatment option of hyperbaric oxygen therapy because he does have a grade 3 ulcer and prior diagnosis of osteomyelitis. He is not able to come to the wound care center on a daily basis and is not ready to commit to this process. The indications, planned application, anticipated healing time management and benefits and complications were discussed. I answered his questions. We also discussed transitioning him to a palliative care program. He recently had surgical intervention and advanced wound product applied and would like to give that a little bit more time because he is demonstrating recent improvement. He would like to proceed with a bimonthly visit schedule. 2019 [facility] entry-. Reviewed today: He denies falling within the past year. His medication allergy profile has been reconciled. Reviewed August 18, 2019: He is having a current smoking status and cessation intervention was advised. His blood pressure is 163/94 which is elevated. I recommend he follows up with his primary care physician due to associated risk factors. He is advised to maintain appropriate activity and diet as well. He does have an advanced care plan on file. His pneumococcal influenza immunization status was also reviewed.
[2019-12-08 08:31] VITALS: BP 189/91; PULSE 75; RESP 22; TEMP 36.4; BMI 27.3
--- NOTE | 2019-12-08 11:36 | PN.PCM_ITS ---
(1) Peripheral vascular disease Status: Chronic Current Visit: Yes Code(s): I73.9 - Peripheral vascular disease, unspecified (2) Type 2 diabetes mellitus with diabetic polyneuropathy Status: Chronic Current Visit: Yes Code(s): E11.42 - Type 2 diabetes mellitus with diabetic polyneuropathy (3) EtOH dependence Status: Chronic Current Visit: Yes Code(s): F10.20 - Alcohol dependence, uncomplicated (4) Chronic ulcer of left foot with fat layer exposed Status: Chronic Current Visit: Yes Code(s): L97.522 - Non-pressure chronic ulcer of other part of left foot with fat layer exposed (5) Delayed wound healing Status: Chronic Current Visit: Yes Code(s): T14.8XXD - Other injury of unspecified body region, subsequent encounter (6) Colonization status Status: Suspected Current Visit: Yes Code(s): Z22.9 - Carrier of infectious disease, unspecified Type of Wound Date of Service: 12/08/19 Chief Complaint: Left heel ulcer History of Wound: This 74-year-old male with multiple comorbidities was seen today for left plantar heel ulcer. He continues to remain nonweightbearing. He had vascular surgery intervention performed recently with Dr. Beck and underwent vascular intervention. He defers additional advanced treatment such as hyperbaric oxygen. He is unable to transport on his own without assistance. He is currently ambulating with the assistance of a knee scooter. He denies fever, chill, nausea, vomiting, loss of appetite, or diarrhea. He denies redness or odor coming from the foot. It is noted he has had significant delays in healing and with his recent revascularization and improvement this is important for limb salvage. Home health has been helping him daily with [employer]. He has had intermittent infections and does not have one currently. He relates a new wound has opened to the medial heel. He is seriously considering going on a palliative care plan because coming in every week is affecting his lifestyle. He admits he fell off the wagon this week when he resumed drinking 4-5 beers on Friday. He relates he previously was drinking 10-14 beers a day and stopped in August. Progress of Wound: Improving Plantar heel. New medial heel ulcer - Physical Exam Vital Signs Temp Pulse Resp BP 97.6 F L 75 22 H 189/91 H 12/08/19 08:31 12/08/19 08:31 12/08/19 08:31 12/08/19 08:31 Wound Measurements and Assessment WC - Nurse 1 - General Ulcer Measurement Start: 12/01/19 08:18 Freq: Status: Active Protocol: Activity Type Activity Date Activity User E-Sign Co-Sign Detail Recorded Client Recorded Date Recorded By Document 12/08/19 08:31 DL [id number] 12/08/19 08:38 DL 12/08/19 08:31 Wound Center Nurse 1 [Ulcer Assessment] 3-left posterior heel -Current Size (cm) - Length 0.2 -Current Size (cm) - Width 0.2 -Current Size (cm) - Depth 0.2 -Total Square Cm 0.04 -Photo Taken No -Exudate Amt Small -Exudate Type Yellow/Green -Wound Margin Distinct, Outline Attached -Granulation Amt Small (1-33%) -Granulation Quality [place] -Necrosis Amt Small (1-33%) -Necrotic Tissue Type Adherent Slough -Structure Exposed N/A -Texture (Emily-wound Skin Appearance) Scarring -Moisture (Emily-wound Skin Appearance Dry/Scaly ) -Color (Emily-wound Skin Appearance) No Abnormality -Temperature (Emily-wound Skin No Abnormality Appearance) (Pt Warm) -Tenderness on Palpation (Emily-wound No Skin Appearance) -Ulcer Cleansing Wound Cleanser -Foul Odor after Cleansing No -Anesthetic Used 4% Lidocaine Solution #1 Left Heel -Current Size (cm) - Length 1 -Current Size (cm) - Width 1 -Current Size (cm) - Depth 0.9 -Total Square Cm 1 -Photo Taken No -Exudate Amt Medium -Exudate Type Serosanguineous -Wound Margin Thickened -Granulation Amt Medium (34-66%) -Granulation Quality Red -Necrosis Amt Medium (34-66%) -Necrotic Tissue Type Adherent Slough -Structure Exposed N/A -Texture (Emily-wound Skin Appearance) Callus,Scarring -Moisture (Emily-wound Skin Appearance Maceration ) -Color (Emily-wound Skin Appearance) No Abnormality -Temperature (Emily-wound Skin No Abnormality Appearance) (Pt Warm) -Tenderness on Palpation (Emily-wound No Skin Appearance) -Ulcer Cleansing Wound Cleanser -Foul Odor after Cleansing No -Anesthetic Used 4% Lidocaine Solution [Edema Assessment] -Left Calf (cm) 33 -Left Ankle (cm) 21 WC - Nurse 2 - General Ulcer CM Notes Start: 12/01/19 08:18 Freq: Status: Active Protocol: Activity Type Activity Date Activity User E-Sign Co-Sign Detail Recorded Client Recorded Date Recorded By Document 12/08/19 08:57 [id number] 12/08/19 08:59 12/08/19 08:57 Wound Center Nurse 2 [Procedure/Treatment] 3-left posterior heel -Time 08:58 -Correct Patient Yes -Correct Side, Site, Position Yes -Correct Procedure Yes -Procedure Performed Yes -Type of Procedure Debridement -Clinical Debridement Subcutaneous -Post Debridement Size (cm) - Length 0.3 -Post Debridement Size (cm) - Width 0.4 -Post Debridement Size (cm) - Depth 0.4 -Total Square Cm 0.12 -Wound/Ulcer Outcome Not Healed -Ulcer Cleansing Rinsed/ Irrigated with Saline -Foul Odor after Cleansing No -Bioengineered Tissue No -Bleeding Controlled with Pressure -Offloading Yes -Type of Offloading Knee Walker -Treatment Response Procedure Tolerated Well #1 Left Heel -Time 08:58 -Correct Patient Yes -Correct Side, Site, Position Yes -Correct Procedure Yes -Procedure Performed Yes -Type of Procedure Debridement -Clinical Debridement Subcutaneous -Post Debridement Size (cm) - Length 1 -Post Debridement Size (cm) - Width 1 -Post Debridement Size (cm) - Depth 1.0 -Total Square Cm 1 -Wound/Ulcer Outcome Not Healed -Ulcer Cleansing Rinsed/ Irrigated with Saline -Foul Odor after Cleansing No -Bioengineered Tissue No -Bleeding Controlled with Pressure -Offloading Yes -Type of Offloading Knee Walker -Treatment Response Procedure Tolerated Well [See Physician Procedure note for Specifics] Pain Scale: 0-10 Numeric [Pain] -Is Patient Pain Free? Yes Debridement Note Post-Debridement Measurements/Treatment WC - Nurse 2 - General Ulcer CM Notes Start: 12/01/19 08:18 Freq: Status: Active Protocol: Activity Type Activity Date Activity User E-Sign Co-Sign Detail Recorded Client Recorded Date Recorded By Document 12/01/19 08:37 [id number] 12/01/19 08:40 Document 12/08/19 08:57 [id number] 12/08/19 08:59 12/01/19 12/08/19 08:37 08:57 Wound Center Nurse 2 3-left posterior heel -Time 08:38 08:58 -Correct Patient Yes Yes -Correct Side, Site, Position Yes Yes -Correct Procedure Yes Yes -Procedure Performed Yes Yes -Type of Procedure Debridement Debridement -Clinical Debridement Subcutaneous Subcutaneous -Post Debridement Size (cm) - Length 0.2 0.3 -Post Debridement Size (cm) - Width 0.4 0.4 -Post Debridement Size (cm) - Depth 0.2 0.4 -Total Square Cm 0.08 0.12 -Wound/Ulcer Outcome Not Healed Not Healed -Ulcer Cleansing Rinsed/ Rinsed/ Irrigated with Irrigated with Saline Saline -Foul Odor after Cleansing No No -Bioengineered Tissue No No -Bleeding Controlled with Pressure Pressure -Offloading Yes Yes -Type of Offloading Knee Walker Knee Walker -Treatment Response Procedure Procedure Tolerated Well Tolerated Well #1 Left Heel -Time 08:38 08:58 -Correct Patient Yes Yes -Correct Side, Site, Position Yes Yes -Correct Procedure Yes Yes -Procedure Performed Yes Yes -Type of Procedure Debridement Debridement -Clinical Debridement Subcutaneous Subcutaneous -Post Debridement Size (cm) - Length 1.0 1 -Post Debridement Size (cm) - Width 1.2 1 -Post Debridement Size (cm) - Depth 0.7 1.0 -Total Square Cm 1.20 1 -Wound/Ulcer Outcome Not Healed Not Healed -Ulcer Cleansing Rinsed/ Rinsed/ Irrigated with Irrigated with Saline Saline -Foul Odor after Cleansing No No -Bioengineered Tissue No No -Bleeding Controlled with Pressure Pressure -Offloading Yes Yes -Type of Offloading Knee Walker Knee Walker -Treatment Response Procedure Procedure Tolerated Well Tolerated Well Pain Scale: 0-10 Numeric Is Patient Pain Free? Yes Yes Assessment/Plan Active Problems (Last Reviewed 09/15/19 @ 08:[address] Td Bronson MD) Peripheral vascular disease (Chronic) Type 2 diabetes mellitus with diabetic polyneuropathy (Chronic) EtOH dependence (Chronic) Chronic ulcer of left foot with fat layer exposed (Chronic) Delayed wound healing (Chronic) Assessment: Left heel ulcer, prior bacterial contamination with multiple organisms with previous grade 3 ulcer status with osteomyelitis. ulcer medial left heel, stable with no infection with colonization suspected and work-up in process. Left Achilles rupture healed. Peripheral vascular disease with recent intervention performed. Diabetes with neuropathy. Malnutrition. Other comorbidities. Walking difficulty. Delayed healing Plan: This patient was examined and evaluated today. His new ulcer site is noted from last week with devitalized fibrinous drainage. This is deteriorating and I am concerned about bacterial colonization status. Aerobic, anaerobic, and MRSA PCR cultures were obtained and results are pending. I recommend that he washes the site with antimicrobial medical grade Cherelle-Hex soap with each dressing change. I also recommend applying Betadine wet-to-dry gauze to the site as well to help with moisture from this underlying tissue. Is okay to continue with the Aquacel Ag to the plantar ulcer site which appears to be doing well. He has a history of C. difficile and I do not recommend additional antibiotics this time. Given his history of recurrent infections, multiple drug resistances, and high risk status, I recommended follow-up with infectious disease next week and we should have additional culture results at that time. I recommend he continues probiotic use. Prior microbiology report demonstrated Staphylococcus aureus, kocuria kristinae, acinobacter luvoffi. Again, the updated results from today are pending. He was advised to continue knee roller use at home to aid with compliance. He is demonstrating some signs of healing improvement since he is recently been revascularized and the wound size is also reduced to the plantar aspect of the heel. He certainly has many comorbidities and this makes him higher risk for infection and delayed healing. It is noted his noninvasive vascular studies were abnormal again and he has had previous lower extremity ulcers with significant delayed healing. He saw Dr. Beck and angiogram was performed recently. To follow-up as scheduled later today. We also discussed the treatment option of hyperbaric oxygen therapy because he does have a grade 3 ulcer and prior diagnosis of osteomyelitis. He is not able to come to the wound care center on a daily basis and is not ready to commit to this process. The indications, planned application, anticipated healing time management and benefits and complications were discussed. I answered his questions. We also discussed transitioning him to a palliative care program. Given his status change, I recommend this at this time. I recommend he follows up next week. 2020 [facility] entry-. Reviewed today: He denies falling within the past year. His medication allergy profile has been reconciled. Reviewed August 18, 2019: He is having a current smoking status and cessation intervention was advised. His blood pressure is 163/94 which is elevated. I recommend he follows up with his primary care physician due to associated risk factors. He is advised to maintain appropriate activity and diet as well. He does have an advanced care plan on file. His pneumococcal influenza immunization status was also reviewed.
[2019-12-08 14:51] LABS: M R Staph aureus DNA By PCR Negative (Negative); Probe Check PASS; Specimen Processing Control PASS; Staph aureus DNA By PCR POSITIVE (Negative)
[2019-12-15 13:06] VITALS: BP 167/81; PULSE 64; RESP 20; TEMP 36.3; BMI 27.3
--- NOTE | 2019-12-15 14:52 | PCM.WC.PN ---
(1) Left foot infection Status: Acute Code(s): L08.9 - Local infection of the skin and subcutaneous tissue, unspecified (2) Peripheral vascular disease Status: Chronic Code(s): I73.9 - Peripheral vascular disease, unspecified (3) Type 2 diabetes mellitus with diabetic polyneuropathy Status: Chronic Code(s): E11.42 - Type 2 diabetes mellitus with diabetic polyneuropathy (4) EtOH dependence Status: Chronic Code(s): F10.20 - Alcohol dependence, uncomplicated (5) Chronic ulcer of left foot with fat layer exposed Status: Chronic Code(s): L97.522 - Non-pressure chronic ulcer of other part of left foot with fat layer exposed (6) Delayed wound healing Status: Chronic Code(s): T14.8XXD - Other injury of unspecified body region, subsequent encounter (7) Colonization status Status: Suspected Code(s): Z22.9 - Carrier of infectious disease, unspecified Type of Wound Date of Service: 12/15/19 Chief Complaint: Left heel ulcer History of Wound: This 74-year-old male with multiple comorbidities was seen today for left plantar heel ulcer. He continues to remain nonweightbearing. He had vascular surgery intervention performed recently with Dr. Beck and underwent vascular intervention. He defers additional advanced treatment such as hyperbaric oxygen. He is unable to transport on his own without assistance. He is currently ambulating with the assistance of a knee scooter. He denies fever, chill, nausea, vomiting, loss of appetite, or diarrhea. He denies redness or odor coming from the foot. It is noted he has had significant delays in healing and with his recent revascularization and improvement this is important for limb salvage. Home health has been helping him daily with [employer]. He has had intermittent infections and he thinks one may be starting recently because his home health demonstrated concerned of abnormal drainage. He was seen by infectious disease this afternoon as well. Progress of Wound: Improving Plantar heel. Infected medial heel ulcer - Physical Exam Vital Signs Temp Pulse Resp BP 97.3 F L 64 20 H 167/81 H 12/15/19 13:06 12/15/19 13:06 12/15/19 13:06 12/15/19 13:06 General: Alert, Oriented x3, Cooperative, No apparent distress HEENT: Atraumatic Extremities: No cyanosis, Capillary Refill Less than 3 Seconds, No Calf Tenderness, Diminished Peripheral Pulses, Edema Skin: Ulcer/ Wound - There is seropurulent drainage coming from the medial aspect of the heel to skin discontinuities and some fluid collection under the adjacent skin. There is no probing to bone. The adjacent skin is hairless and atrophic. The plantar heel ulcer has continued medial epithelialization and granulation tissue with ulcer bed reduction of depth. There is no purulence coming from the plantar ulcer Wound Measurements and Assessment WC - Nurse 1 - General Ulcer Measurement Start: 12/01/19 08:18 Freq: Status: Active Protocol: Activity Type Activity Date Activity User E-Sign Co-Sign Detail Recorded Client Recorded Date Recorded By Document 12/15/19 13:06 DL [id number] 12/15/19 13:17 DL 12/15/19 13:06 Wound Center Nurse 1 [Ulcer Assessment] 3-left posterior heel -Current Size (cm) - Length 0.1 -Current Size (cm) - Width 0.1 -Current Size (cm) - Depth 0.1 -Total Square Cm 0.01 -Photo Taken No -Exudate Amt None Present -Wound Margin Flat & Intact -Granulation Amt Large (67-100%) -Granulation Quality [place] -Necrosis Amt None Present (0 %) -Structure Exposed N/A -Texture (Emily-wound Skin Appearance) Scarring -Moisture (Emily-wound Skin Appearance No Abnormality ) -Color (Emily-wound Skin Appearance) No Abnormality -Temperature (Emily-wound Skin No Abnormality Appearance) (Pt Warm) -Tenderness on Palpation (Emily-wound No Skin Appearance) -Ulcer Cleansing Wound Cleanser -Foul Odor after Cleansing No #1 Left Heel -Current Size (cm) - Length 1.2 -Current Size (cm) - Width 1.3 -Current Size (cm) - Depth 0.7 -Total Square Cm 1.56 -Photo Taken No -Exudate Amt Small -Exudate Type Serosanguineous -Wound Margin Distinct, Outline Attached -Granulation Amt Medium (34-66%) -Granulation Quality Pale,[place] -Necrosis Amt Small (1-33%) -Structure Exposed N/A -Texture (Emily-wound Skin Appearance) Scarring -Moisture (Emily-wound Skin Appearance No Abnormality ) -Color (Emily-wound Skin Appearance) No Abnormality -Temperature (Emily-wound Skin No Abnormality Appearance) (Pt Warm) -Tenderness on Palpation (Emily-wound No Skin Appearance) -Ulcer Cleansing Wound Cleanser -Foul Odor after Cleansing No -Anesthetic Used 4% Lidocaine Solution WC - Nurse 2 - General Ulcer CM Notes Start: 12/01/19 08:18 Freq: Status: Active Protocol: Activity Type Activity Date Activity User E-Sign Co-Sign Detail Recorded Client Recorded Date Recorded By Document 12/15/19 13:32 DL [id number] 12/15/19 13:35 DL 12/15/19 13:32 Wound Center Nurse 2 [Procedure/Treatment] 3-left posterior heel -Time 13:33 -Correct Patient Yes -Correct Side, Site, Position Yes -Correct Procedure Yes -Procedure Performed Yes -Type of Procedure Debridement -Clinical Debridement Subcutaneous -Post Debridement Size (cm) - Length 0.6 -Post Debridement Size (cm) - Width 1.0 -Post Debridement Size (cm) - Depth 0.2 -Total Square Cm 0.60 -Wound/Ulcer Outcome Not Healed -Ulcer Cleansing Rinsed/ Irrigated with Saline -Foul Odor after Cleansing No -Bioengineered Tissue No -Bleeding Controlled with Pressure -Offloading Yes -Type of Offloading Knee Walker -Treatment Response Procedure Tolerated Well #1 Left Heel -Time 13:33 -Correct Patient Yes -Correct Side, Site, Position Yes -Correct Procedure Yes -Procedure Performed Yes -Type of Procedure Debridement -Clinical Debridement Subcutaneous -Post Debridement Size (cm) - Length 1.3 -Post Debridement Size (cm) - Width 1.3 -Post Debridement Size (cm) - Depth 0.6 -Total Square Cm 1.69 -Wound/Ulcer Outcome Not Healed -Ulcer Cleansing Rinsed/ Irrigated with Saline -Foul Odor after Cleansing No -Bioengineered Tissue No -Bleeding Controlled with Pressure -Offloading Yes -Type of Offloading Knee Walker -Treatment Response Procedure Tolerated Well [See Physician Procedure note for Specifics] Pain Scale: 0-10 Numeric [Pain] -Is Patient Pain Free? Yes Musculoskeletal: No Tenderness to Palpation of Joints or Extremities, Muscle Wasting Neurological: - - Lack of normal epicritic sensation to light touch Psych/Mental Status: Normal Affect, Appropriate Debridement Note Post-Debridement Measurements/Treatment [facility] - Nurse 2 - General Ulcer CM Notes Start: 12/01/19 08:18 Freq: Status: Active Protocol: Activity Type Activity Date Activity User E-Sign Co-Sign Detail Recorded Client Recorded Date Recorded By Document 12/01/19 08:37 JF [id number] 12/01/19 08:40 JF Document 12/08/19 08:57 JF [id number] 12/08/19 08:59 JF Document 12/15/19 13:32 DL [id number] 12/15/19 13:35 DL 12/01/19 12/08/19 12/15/19 08:37 08:57 13:32 Wound Center Nurse 2 3-left posterior heel -Time 08:38 08:58 13:33 -Correct Patient Yes Yes Yes -Correct Side, Site, Position Yes Yes Yes -Correct Procedure Yes Yes Yes -Procedure Performed Yes Yes Yes -Type of Procedure Debridement Debridement Debridement -Clinical Debridement Subcutaneous Subcutaneous Subcutaneous -Post Debridement Size (cm) - Length 0.2 0.3 0.6 -Post Debridement Size (cm) - Width 0.4 0.4 1.0 -Post Debridement Size (cm) - Depth 0.2 0.4 0.2 -Total Square Cm 0.08 0.12 0.60 -Wound/Ulcer Outcome Not Healed Not Healed Not Healed -Ulcer Cleansing Rinsed/ Rinsed/ Rinsed/ Irrigated with Irrigated with Irrigated with Saline Saline Saline -Foul Odor after Cleansing No No No -Bioengineered Tissue No No No -Bleeding Controlled with Pressure Pressure Pressure -Offloading Yes Yes Yes -Type of Offloading Knee Walker Knee Walker Knee Walker -Treatment Response Procedure Procedure Procedure Tolerated Well Tolerated Well Tolerated Well #1 Left Heel -Time 08:38 08:58 13:33 -Correct Patient Yes Yes Yes -Correct Side, Site, Position Yes Yes Yes -Correct Procedure Yes Yes Yes -Procedure Performed Yes Yes Yes -Type of Procedure Debridement Debridement Debridement -Clinical Debridement Subcutaneous Subcutaneous Subcutaneous -Post Debridement Size (cm) - Length 1.0 1 1.3 -Post Debridement Size (cm) - Width 1.2 1 1.3 -Post Debridement Size (cm) - Depth 0.7 1.0 0.6 -Total Square Cm 1.20 1 1.69 -Wound/Ulcer Outcome Not Healed Not Healed Not Healed -Ulcer Cleansing Rinsed/ Rinsed/ Rinsed/ Irrigated with Irrigated with Irrigated with Saline Saline Saline -Foul Odor after Cleansing No No No -Bioengineered Tissue No No No -Bleeding Controlled with Pressure Pressure Pressure -Offloading Yes Yes Yes -Type of Offloading Knee Walker Knee Walker Knee Walker -Treatment Response Procedure Procedure Procedure Tolerated Well Tolerated Well Tolerated Well Pain Scale: 0-10 Numeric Is Patient Pain Free? Yes Yes Yes Wound debrided: plantar heel Laterality: Left Wound Grade/Stage: grade 3 Type of Debridement: Excisional debridement Anesthesia Used: 5% Lidocaine Gel Depth: in the subcutaneous layer Percentage of wound debrided: 100 Instrument Used: #15 blade Tissue Removed: devitalized subcutaneous, biofilm, slough, fibrous Severity: Fat Layer Exposed Amount of bleeding with debridement: Mild Bleeding Controlled with: Pressure, Compression and gauze Patient tolerated procedure well - Additional Wound Wound debrided: medial heel Laterality: Left Wound Grade/Stage: grade 1 Type of Debridement: Excisional debridement Anesthesia Used: 5% Lidocaine Gel Depth: in the subcutaneous layer Percentage of wound debrided: 100 Instrument Used: #15 blade Tissue Removed: devitalized subcutaneous, biofilm, slough, fibrous Severity: Fat Layer Exposed Amount of bleeding with debridement: Mild Bleeding Controlled with: Pressure Patient tolerated procedure: Patient tolerated procedure well Assessment/Plan Assessment: Left heel ulcer, prior bacterial contamination with multiple organisms with previous grade 3 ulcer status with osteomyelitis. ulcer medial left heel, stable with infection. Left Achilles rupture healed. Peripheral vascular disease with recent intervention performed. Diabetes with neuropathy. Malnutrition. Other comorbidities. Walking difficulty. Delayed healing Plan: This patient was examined and evaluated today. The medial ulcer site is a concern today. This is deteriorating and I am concerned about bacterial colonization status. Aerobic, anaerobic, and MRSA PCR cultures were obtained and results are pending. I recommend that he washes the site with antimicrobial medical grade Cherelle-Hex soap with each dressing change. I also recommend applying Betadine wet-to-dry gauze to the site as well to help with moisture from this underlying tissue. He is seen by infectious disease this afternoon and input is appreciated. His recent cultures demonstrate kocuria, mssa, and acinetobacter. He has a h/o c-diff. He was started on a seven-day course of minocycline. Is okay to continue with the Aquacel Ag to the plantar ulcer site which appears to be doing well. I recommend he continues probiotic use. He was advised to continue knee roller use at home to aid with compliance. He is demonstrating some signs of healing improvement since he is recently been revascularized and the wound size is also reduced to the plantar aspect of the heel. He certainly has many comorbidities and this makes him higher risk for infection and delayed healing. It is noted his noninvasive vascular studies were abnormal again and he has had previous lower extremity ulcers with significant delayed healing. He saw Dr. Beck and angiogram was performed recently. To follow-up as scheduled later today. We also discussed the treatment option of hyperbaric oxygen therapy because he does have a grade 3 ulcer and prior diagnosis of osteomyelitis. He is not able to come to the wound care center on a daily basis and is not ready to commit to this process. The indications, planned application, anticipated healing time management and benefits and complications were discussed. I answered his questions. We also discussed transitioning him to a palliative care program. Given his status change, I recommend this at this time. I recommend he follows up next week. 2020 macra entry-. Reviewed today: He denies falling within the past year. His medication allergy profile has been reconciled. Reviewed August 18, 2019: He is having a current smoking status and cessation intervention was advised. His blood pressure is 163/94 which is elevated. I recommend he follows up with his primary care physician due to associated risk factors. He is advised to maintain appropriate activity and diet as well. He does have an advanced care plan on file. His pneumococcal influenza immunization status was also reviewed.
--- NOTE | 2019-12-15 22:18 | PCM.PN.ID ---
Patient Problems: Active and Suspected Problems (Last Reviewed 09/15/19 @ 08:[address] Td Bronson MD) Colonization status (Suspected) Subjective: Feeling ok, no fever, no n/v/d, no recent abx. L foot overall improving, but ongoing issues with medial heel. - Physical Exam Vitals/I&O's: Vital Signs Temp Pulse Resp BP 97.3 F L 64 20 H 167/81 H 12/15/19 13:06 12/15/19 13:06 12/15/19 13:06 12/15/19 13:06 Body Mass Index (BMI) 27.3 General: Alert, Cooperative, No apparent distress Lungs: Clear to auscultation, Normal air movement Cardiovascular: Regular rate, Regular Rhythm Abdomen: Soft, Non Tender, Non-Distended Skin: Ulcer/ Wound - L heel debrided Microbiology Past 72 Hours 12/08/19 09:00 Wound Abcess - Left Foot Gram Stain - Final 12/08/19 09:00 Wound Abcess - Left Foot Wound Culture - Final Staphylococcus aureus 12/08/19 09:00 Wound Abcess - Left Foot Anaerobic Culture - Final No anaerobic bacteria isolated. Medical Necessity - Tobacco Use Smoking Status: Former smoker Route of nutrition/ use of supplements: [] Nutritional Intake: [] IV Site: [] Byrd Catheter: [] - Assessment/Plan Antibiotics: [] Assessment/Plan: [] Active and Suspected Problems (Last Reviewed 09/15/19 @ 08:[address] dT Bronson MD) Colonization status (Suspected) Infected foot wound - recent cxs with kocuria, mssa, and acinetobacter. Has h/o cdiff, so trying to limit antibiotic exposure. Debridement done. Will write for 7 day course of minocycline. Will follow as needed, d/w Dr. Cifuentes.
[2019-12-22 08:12] VITALS: BP 119/63; PULSE 73; RESP 18; TEMP 36; BMI 27.3
--- NOTE | 2019-12-22 09:03 | PCM.WC.PN ---
(1) Left foot infection Status: Acute Current Visit: Yes Code(s): L08.9 - Local infection of the skin and subcutaneous tissue, unspecified (2) Peripheral vascular disease Status: Chronic Current Visit: Yes Code(s): I73.9 - Peripheral vascular disease, unspecified (3) Type 2 diabetes mellitus with diabetic polyneuropathy Status: Chronic Current Visit: Yes Code(s): E11.42 - Type 2 diabetes mellitus with diabetic polyneuropathy (4) EtOH dependence Status: Chronic Current Visit: Yes Code(s): F10.20 - Alcohol dependence, uncomplicated (5) Chronic ulcer of left foot with fat layer exposed Status: Chronic Current Visit: Yes Code(s): L97.522 - Non-pressure chronic ulcer of other part of left foot with fat layer exposed (6) Delayed wound healing Status: Chronic Current Visit: Yes Code(s): T14.8XXD - Other injury of unspecified body region, subsequent encounter (7) Colonization status Status: Suspected Current Visit: Yes Code(s): Z22.9 - Carrier of infectious disease, unspecified Type of Wound Date of Service: 12/22/19 Chief Complaint: Left heel ulcer History of Wound: This 74-year-old male with multiple comorbidities was seen today for left plantar heel ulcer. He continues to remain nonweightbearing. He had vascular surgery intervention performed recently with Dr. Beck and underwent vascular intervention. He defers additional advanced treatment such as hyperbaric oxygen. He is unable to transport on his own without assistance. He is currently ambulating with the assistance of a knee scooter. He denies fever, chill, nausea, vomiting, loss of appetite, or diarrhea. He denies redness or odor coming from the foot. It is noted he has had significant delays in healing and with his recent revascularization and improvement this is important for limb salvage. Home health has been helping him daily with [employer]. He was seen by infectious disease last week and was started on minocycline. He denies diarrhea or other side effects. He asks if he can start stretching appointments out again to resume his palliative care plan. Progress of Wound: Improving plantar heel. Stabilizing medial heel ulcer - Physical Exam Vital Signs Temp Pulse Resp BP 96.8 F L 73 18 119/63 12/22/19 08:12 12/22/19 08:12 12/22/19 08:12 12/22/19 08:12 General: Alert, Oriented x3, Cooperative, No apparent distress Extremities: No cyanosis, Capillary Refill Less than 3 Seconds, No Calf Tenderness, Diminished Peripheral Pulses, Edema Skin: Ulcer/ Wound - No purulence, erythema, streaking, odor, infection. No probe to bone or deep tissue. The adjacent skin is hairless and atrophic. Wound Measurements and Assessment WC - Nurse 1 - General Ulcer Measurement Start: 12/01/19 08:18 Freq: Status: Active Protocol: Activity Type Activity Date Activity User E-Sign Co-Sign Detail Recorded Client Recorded Date Recorded By Document 12/22/19 08:12 DL [id number] 12/22/19 08:17 DL 12/22/19 08:12 Wound Center Nurse 1 [Ulcer Assessment] 3-left posterior heel -Current Size (cm) - Length 0.3 -Current Size (cm) - Width 0.4 -Current Size (cm) - Depth 0.1 -Total Square Cm 0.12 -Photo Taken No -Exudate Amt None Present -Wound Margin Flat & Intact -Granulation Amt Large (67-100%) -Granulation Quality [place] -Necrosis Amt None Present (0 %) -Structure Exposed N/A -Texture (Emily-wound Skin Appearance) Scarring -Moisture (Emily-wound Skin Appearance No Abnormality ) -Color (Emily-wound Skin Appearance) No Abnormality -Temperature (Emily-wound Skin No Abnormality Appearance) (Pt Warm) -Tenderness on Palpation (Emily-wound No Skin Appearance) -Ulcer Cleansing Rinsed/ Irrigated with Saline -Foul Odor after Cleansing No -Anesthetic Used 4% Lidocaine Solution #1 Left Heel -Current Size (cm) - Length 1 -Current Size (cm) - Width 1 -Current Size (cm) - Depth 0.9 -Total Square Cm 1 -Photo Taken No -Exudate Amt Small -Wound Margin Thickened -Granulation Amt Medium (34-66%) -Granulation Quality [place] -Necrosis Amt Medium (34-66%) -Necrotic Tissue Type Adherent Slough -Structure Exposed N/A -Texture (Emily-wound Skin Appearance) Callus -Moisture (Emily-wound Skin Appearance Maceration ) -Color (Emily-wound Skin Appearance) No Abnormality -Temperature (Emily-wound Skin No Abnormality Appearance) (Pt Warm) -Tenderness on Palpation (Emily-wound No Skin Appearance) -Ulcer Cleansing Wound Cleanser -Foul Odor after Cleansing No -Anesthetic Used 4% Lidocaine Solution WC - Nurse 2 - General Ulcer CM Notes Start: 12/01/19 08:18 Freq: Status: Active Protocol: Activity Type Activity Date Activity User E-Sign Co-Sign Detail Recorded Client Recorded Date Recorded By Document 12/22/19 08:27 JF [id number] 12/22/19 08:30 JF 12/22/19 08:27 Wound Center Nurse 2 [Procedure/Treatment] 3-left posterior heel -Time 08:27 -Correct Patient Yes -Correct Side, Site, Position Yes -Correct Procedure Yes -Procedure Performed Yes -Type of Procedure Debridement -Clinical Debridement Subcutaneous -Post Debridement Size (cm) - Length 0.4 -Post Debridement Size (cm) - Width 0.4 -Post Debridement Size (cm) - Depth 0.1 -Total Square Cm 0.16 -Wound/Ulcer Outcome Not Healed -Ulcer Cleansing Rinsed/ Irrigated with Saline -Foul Odor after Cleansing No -Bioengineered Tissue No -Bleeding Controlled with Pressure -Offloading Yes -Type of Offloading Knee Walker -Treatment Response Procedure Tolerated Well #1 Left Heel -Time 08:28 -Correct Patient Yes -Correct Side, Site, Position Yes -Correct Procedure Yes -Procedure Performed Yes -Type of Procedure Debridement -Clinical Debridement Subcutaneous -Post Debridement Size (cm) - Length 1.7 -Post Debridement Size (cm) - Width 1.3 -Post Debridement Size (cm) - Depth 0.8 -Total Square Cm 2.21 -Wound/Ulcer Outcome Not Healed -Ulcer Cleansing Rinsed/ Irrigated with Saline -Foul Odor after Cleansing No -Bioengineered Tissue No -Bleeding Controlled with Pressure -Offloading Yes -Type of Offloading Knee Walker -Treatment Response Procedure Tolerated Well [See Physician Procedure note for Specifics] Pain Scale: 0-10 Numeric [Pain] -Is Patient Pain Free? Yes Musculoskeletal: No Tenderness to Palpation of Joints or Extremities, Muscle Wasting, - - No bogginess or fluctuance on palpation Neurological: - - Lack of epicritic sensation light touch is consistent with neuropathy status Psych/Mental Status: Normal Affect, Appropriate Debridement Note Post-Debridement Measurements/Treatment [facility] - Nurse 2 - General Ulcer CM Notes Start: 12/01/19 08:18 Freq: Status: Active Protocol: Activity Type Activity Date Activity User E-Sign Co-Sign Detail Recorded Client Recorded Date Recorded By Document 12/01/19 08:37 JF [id number] 12/01/19 08:40 JF Document 12/08/19 08:57 JF [id number] 12/08/19 08:59 JF Document 12/15/19 13:32 DL [id number] 12/15/19 13:35 DL Document 12/22/19 08:27 JF [id number] 12/22/19 08:30 JF 12/01/19 12/08/19 12/15/19 08:37 08:57 13:32 Wound Center Nurse 2 3-left posterior heel -Time 08:38 08:58 13:33 -Correct Patient Yes Yes Yes -Correct Side, Site, Position Yes Yes Yes -Correct Procedure Yes Yes Yes -Procedure Performed Yes Yes Yes -Type of Procedure Debridement Debridement Debridement -Clinical Debridement Subcutaneous Subcutaneous Subcutaneous -Post Debridement Size (cm) - Length 0.2 0.3 0.6 -Post Debridement Size (cm) - Width 0.4 0.4 1.0 -Post Debridement Size (cm) - Depth 0.2 0.4 0.2 -Total Square Cm 0.08 0.12 0.60 -Wound/Ulcer Outcome Not Healed Not Healed Not Healed -Ulcer Cleansing Rinsed/ Rinsed/ Rinsed/ Irrigated with Irrigated with Irrigated with Saline Saline Saline -Foul Odor after Cleansing No No No -Bioengineered Tissue No No No -Bleeding Controlled with Pressure Pressure Pressure -Offloading Yes Yes Yes -Type of Offloading Knee Walker Knee Walker Knee Walker -Treatment Response Procedure Procedure Procedure Tolerated Well Tolerated Well Tolerated Well #1 Left Heel -Time 08:38 08:58 13:33 -Correct Patient Yes Yes Yes -Correct Side, Site, Position Yes Yes Yes -Correct Procedure Yes Yes Yes -Procedure Performed Yes Yes Yes -Type of Procedure Debridement Debridement Debridement -Clinical Debridement Subcutaneous Subcutaneous Subcutaneous -Post Debridement Size (cm) - Length 1.0 1 1.3 -Post Debridement Size (cm) - Width 1.2 1 1.3 -Post Debridement Size (cm) - Depth 0.7 1.0 0.6 -Total Square Cm 1.20 1 1.69 -Wound/Ulcer Outcome Not Healed Not Healed Not Healed -Ulcer Cleansing Rinsed/ Rinsed/ Rinsed/ Irrigated with Irrigated with Irrigated with Saline Saline Saline -Foul Odor after Cleansing No No No -Bioengineered Tissue No No No -Bleeding Controlled with Pressure Pressure Pressure -Offloading Yes Yes Yes -Type of Offloading Knee Walker Knee Walker Knee Walker -Treatment Response Procedure Procedure Procedure Tolerated Well Tolerated Well Tolerated Well Pain Scale: 0-10 Numeric Is Patient Pain Free? Yes Yes Yes 12/22/19 08:27 Wound Center Nurse 2 3-left posterior heel -Time 08:27 -Correct Patient Yes -Correct Side, Site, Position Yes -Correct Procedure Yes -Procedure Performed Yes -Type of Procedure Debridement -Clinical Debridement Subcutaneous -Post Debridement Size (cm) - Length 0.4 -Post Debridement Size (cm) - Width 0.4 -Post Debridement Size (cm) - Depth 0.1 -Total Square Cm 0.16 -Wound/Ulcer Outcome Not Healed -Ulcer Cleansing Rinsed/ Irrigated with Saline -Foul Odor after Cleansing No -Bioengineered Tissue No -Bleeding Controlled with Pressure -Offloading Yes -Type of Offloading Knee Walker -Treatment Response Procedure Tolerated Well #1 Left Heel -Time 08:28 -Correct Patient Yes -Correct Side, Site, Position Yes -Correct Procedure Yes -Procedure Performed Yes -Type of Procedure Debridement -Clinical Debridement Subcutaneous -Post Debridement Size (cm) - Length 1.7 -Post Debridement Size (cm) - Width 1.3 -Post Debridement Size (cm) - Depth 0.8 -Total Square Cm 2.21 -Wound/Ulcer Outcome Not Healed -Ulcer Cleansing Rinsed/ Irrigated with Saline -Foul Odor after Cleansing No -Bioengineered Tissue No -Bleeding Controlled with Pressure -Offloading Yes -Type of Offloading Knee Walker -Treatment Response Procedure Tolerated Well Pain Scale: 0-10 Numeric Is Patient Pain Free? Yes Wound debrided: medial heel Laterality: Left Wound Grade/Stage: grade 1 Type of Debridement: Excisional debridement Anesthesia Used: 5% Lidocaine Gel Depth: in the subcutaneous layer Percentage of wound debrided: 100 Instrument Used: #15 blade Tissue Removed: fibrous, devitalized subcutaneous, biofilm, slough Severity: Fat Layer Exposed Amount of bleeding with debridement: Mild Bleeding Controlled with: Pressure Patient tolerated procedure well - Additional Wound Wound debrided: plantar heel Laterality: Left Wound Grade/Stage: grade 3 Type of Debridement: Excisional debridement Anesthesia Used: 5% Lidocaine Gel Depth: in the subcutaneous layer Percentage of wound debrided: 100 Instrument Used: #15 blade Tissue Removed: fibrous, devitalized subcutaneous, biofilm, slough Severity: Fat Layer Exposed Amount of bleeding with debridement: Mild Bleeding Controlled with: Pressure Patient tolerated procedure: Patient tolerated procedure well Assessment/Plan Active Problems (Last Reviewed 09/15/19 @ 08:[address] Td Bronson MD) Left foot infection (Acute) Peripheral vascular disease (Chronic) Type 2 diabetes mellitus with diabetic polyneuropathy (Chronic) EtOH dependence (Chronic) Chronic ulcer of left foot with fat layer exposed (Chronic) Delayed wound healing (Chronic) Assessment: Left heel ulcer, prior bacterial contamination with multiple organisms with previous grade 3 ulcer status with osteomyelitis. ulcer medial left heel, stable with infection. Left Achilles rupture healed. Peripheral vascular disease with recent intervention performed. Diabetes with neuropathy. Malnutrition. Other comorbidities. Walking difficulty. Delayed healing Plan: This patient was examined and evaluated today. Subcutaneous excisional debridement was performed as noted in the clinical panel. The medial ulcer site has stabilized since he has been on minocycline this past week per infectious disease recommendations. His culture results were reviewed. I recommend that he washes the site with antimicrobial medical grade Cherelle-Hex soap with each dressing change. His recent cultures demonstrate kocuria, mssa, and acinetobacter. He has a h/o c-diff. It is okay to continue with the Aquacel Ag to the plantar ulcer site which appears to be doing well. I recommend he continues probiotic use. He relates he is not been doing this and he has not plan to use probiotics. The purpose and benefits of doing so were reviewed with him. He was advised to continue knee roller use at home to aid with compliance. He is demonstrating some signs of healing improvement since he is recently been revascularized and the wound size is also reduced to the plantar aspect of the heel. He certainly has many comorbidities and this makes him higher risk for infection and delayed healing. It is noted his noninvasive vascular studies were abnormal again and he has had previous lower extremity ulcers with significant delayed healing. He was advised to follow-up with Dr. Beck, vascular surgeon, as scheduled and advised. We also discussed the treatment option of hyperbaric oxygen therapy because he does have a grade 3 ulcer and prior diagnosis of osteomyelitis. He is not able to come to the wound care center on a daily basis and is not ready to commit to this process. The indications, planned application, anticipated healing time management and benefits and complications were discussed. I answered his questions. We also discussed transitioning him to a palliative care program. Given his status change, I recommend this at this time. He will return to clinic in 2 weeks. 2019 lucio entry-. Reviewed today: He denies falling within the past year. His medication allergy profile has been reconciled. Reviewed August 18, 2019: He is having a current smoking status and cessation intervention was advised. His blood pressure is 163/94 which is elevated. I recommend he follows up with his primary care physician due to associated risk factors. He is advised to maintain appropriate activity and diet as well. He does have an advanced care plan on file. His pneumococcal influenza immunization status was also reviewed.
== END 2019-12-26 23:59 ==
LOC: WC 08:00
PROVIDERS: Family Provider Family Medicine; PCP Family Medicine; Referring Provider Podiatrist; Visit Provider Podiatrist
DX: E11.621 Type 2 diabetes mellitus with foot ulcer (principal); E11.42 Type 2 diabetes mellitus with diabetic polyneuropathy; E11.51 Type 2 diabetes mellitus with diabetic peripheral angiopathy without gangrene; L97.422 Non-pressure chronic ulcer of left heel and midfoot with fat layer exposed; R26.2 Difficulty in walking, not elsewhere classified; F10.20 Alcohol dependence, uncomplicated; Z87.891 Personal history of nicotine dependence; B95.61 Methicillin susceptible Staphylococcus aureus infection as the cause of diseases classified elsewhere; L08.9 Local infection of the skin and subcutaneous tissue, unspecified
CPT/HCPCS: 11042; 87070; 87075; 87077; 87186; 87205; 87640

== ENCOUNTER 2020-01-19 08:00 | Outpatient (RCR) | payer MEDICARE, SELFPAY ==
[2019-12-27 00:21] VITALS: BP 119/63; PULSE 73; RESP 18; TEMP 36
[2020-01-05 08:10] VITALS: BP 144/72; PULSE 73; RESP 20; TEMP 37.1; BMI 27.3
--- NOTE | 2020-01-05 09:14 | PN.PCM_ITS ---
(1) Chronic ulcer of left foot with fat layer exposed Status: Chronic Current Visit: Yes Code(s): L97.522 - Non-pressure chronic ulcer of other part of left foot with fat layer exposed (2) PVD (peripheral vascular disease) Status: Chronic Current Visit: Yes Code(s): I73.9 - Peripheral vascular disease, unspecified (3) Colonization status Status: Resolved Current Visit: Yes Code(s): Z22.9 - Carrier of infectious disease, unspecified (4) Type 2 diabetes mellitus with diabetic polyneuropathy Status: Chronic Current Visit: Yes Code(s): E11.42 - Type 2 diabetes mellitus with diabetic polyneuropathy Type of Wound Date of Service: 01/05/20 Chief Complaint: Left heel ulcer History of Wound: This 74-year-old male with multiple comorbidities was seen today for left plantar heel ulcer. He continues to remain nonweightbearing. He had vascular surgery intervention performed recently with Dr. Beck and underwent vascular intervention. He defers additional advanced treatment such as hyperbaric oxygen. He is unable to transport on his own without assistance. He is currently ambulating with the assistance of a knee scooter. He denies fever, chill, nausea, vomiting, loss of appetite, or diarrhea. He denies redness or odor coming from the foot. It is noted he has had significant delays in healing and with his recent revascularization and improvement this is important for limb salvage. Home health has been helping him daily with [email or web address]. He completed minocycline. He denies diarrhea or other side effects. He asks if he can start stretching appointments out again to resume his palliative care plan. Progress of Wound: Improving plantar heel. Stabilizing medial heel ulcer - Physical Exam Vital Signs Temp Pulse Resp BP 98.7 F 73 20 H 144/72 H 01/05/20 08:10 01/05/20 08:10 01/05/20 08:10 01/05/20 08:10 General: Alert, Oriented x3, Cooperative, No apparent distress HEENT: Atraumatic Extremities: No cyanosis, Capillary Refill Less than 3 Seconds, Diminished Peripheral Pulses, Edema Skin: Ulcer/ Wound - No purulence, erythema, string, odor, infection. The emily- ulcer inflammation has resolved Wound Measurements and Assessment WC - Nurse 1 - General Ulcer Measurement Start: 01/05/20 08:10 Freq: Status: Active Protocol: Activity Type Activity Date Activity User E-Sign Co-Sign Detail Recorded Client Recorded Date Recorded By Document 01/05/20 08:10 DL [id number] 01/05/20 08:14 DL 01/05/20 08:10 Wound Center Nurse 1 [Ulcer Assessment] 3-left posterior heel -Current Size (cm) - Length 0.6 -Current Size (cm) - Width 0.5 -Current Size (cm) - Depth 0.1 -Total Square Cm 0.30 -Photo Taken No -Exudate Amt None Present -Exudate Type Serosanguineous -Wound Margin Distinct, Outline Attached -Granulation Amt Large (67-100%) -Granulation Quality Forrest -Necrosis Amt None Present (0 %) -Structure Exposed N/A -Texture (Emily-wound Skin Appearance) Scarring -Moisture (Emily-wound Skin Appearance No Abnormality ) -Color (Emily-wound Skin Appearance) No Abnormality -Temperature (Emily-wound Skin No Abnormality Appearance) (Pt Warm) -Tenderness on Palpation (Emily-wound No Skin Appearance) -Ulcer Cleansing Wound Cleanser -Foul Odor after Cleansing No -Anesthetic Used 4% Lidocaine Solution #1 Left Heel -Current Size (cm) - Length 1.7 -Current Size (cm) - Width 1.3 -Current Size (cm) - Depth 0.8 -Total Square Cm 2.21 -Photo Taken No -Exudate Amt Small -Exudate Type Serosanguineous -Wound Margin Thickened & Rolled Under -Granulation Amt Large (67-100%) -Granulation Quality Red -Necrosis Amt Small (1-33%) -Necrotic Tissue Type Adherent Slough -Structure Exposed N/A -Texture (Emily-wound Skin Appearance) Scarring -Moisture (Emily-wound Skin Appearance No Abnormality ) -Color (Emily-wound Skin Appearance) No Abnormality -Temperature (Emily-wound Skin No Abnormality Appearance) (Pt Warm) -Tenderness on Palpation (Emily-wound No Skin Appearance) -Foul Odor after Cleansing Yes -Anesthetic Used 4% Lidocaine Solution WC - Nurse 2 - General Ulcer CM Notes Start: 01/05/20 08:10 Freq: Status: Active Protocol: Activity Type Activity Date Activity User E-Sign Co-Sign Detail Recorded Client Recorded Date Recorded By Document 01/05/20 08:30 GAGE [id number] 01/05/20 08:33 GAGE 01/05/20 08:30 Wound Center Nurse 2 [Procedure/Treatment] 3-left posterior heel -Time 08:31 -Correct Patient Yes -Correct Side, Site, Position Yes -Correct Procedure Yes -Procedure Performed Yes -Type of Procedure Debridement -Clinical Debridement Subcutaneous -Post Debridement Size (cm) - Length 0.6 -Post Debridement Size (cm) - Width 0.6 -Post Debridement Size (cm) - Depth 0.1 -Total Square Cm 0.36 -Wound/Ulcer Outcome Not Healed -Ulcer Cleansing Rinsed/ Irrigated with Saline -Foul Odor after Cleansing No -Bioengineered Tissue No -Bleeding Controlled with Pressure -Offloading Yes -Type of Offloading Knee Walker -Treatment Response Procedure Tolerated Well #1 Left Heel -Time 08:31 -Correct Patient Yes -Correct Side, Site, Position Yes -Correct Procedure Yes -Procedure Performed Yes -Type of Procedure Debridement -Clinical Debridement Subcutaneous -Post Debridement Size (cm) - Length 1.8 -Post Debridement Size (cm) - Width 1.3 -Post Debridement Size (cm) - Depth 0.8 -Total Square Cm 2.34 -Wound/Ulcer Outcome Not Healed -Ulcer Cleansing Rinsed/ Irrigated with Saline -Foul Odor after Cleansing No -Bioengineered Tissue No -Bleeding Controlled with Pressure -Offloading Yes -Type of Offloading Knee Walker -Treatment Response Procedure Tolerated Well [See Physician Procedure note for Specifics] Pain Scale: 0-10 Numeric [Pain] -Is Patient Pain Free? Yes Musculoskeletal: No Tenderness to Palpation of Joints or Extremities, Muscle Wasting Neurological: - - Lack of normal sensation consistent with neuropathy Psych/Mental Status: Normal Affect, Appropriate Debridement Note Post-Debridement Measurements/Treatment WC - Nurse 2 - General Ulcer CM Notes Start: 01/05/20 08:10 Freq: Status: Active Protocol: Activity Type Activity Date Activity User E-Sign Co-Sign Detail Recorded Client Recorded Date Recorded By Document 01/05/20 08:30 JF [id number] 01/05/20 08:33 JF 01/05/20 08:30 Wound Center Nurse 2 3-left posterior heel -Time 08:31 -Correct Patient Yes -Correct Side, Site, Position Yes -Correct Procedure Yes -Procedure Performed Yes -Type of Procedure Debridement -Clinical Debridement Subcutaneous -Post Debridement Size (cm) - Length 0.6 -Post Debridement Size (cm) - Width 0.6 -Post Debridement Size (cm) - Depth 0.1 -Total Square Cm 0.36 -Wound/Ulcer Outcome Not Healed -Ulcer Cleansing Rinsed/ Irrigated with Saline -Foul Odor after Cleansing No -Bioengineered Tissue No -Bleeding Controlled with Pressure -Offloading Yes -Type of Offloading Knee Walker -Treatment Response Procedure Tolerated Well #1 Left Heel -Time 08:31 -Correct Patient Yes -Correct Side, Site, Position Yes -Correct Procedure Yes -Procedure Performed Yes -Type of Procedure Debridement -Clinical Debridement Subcutaneous -Post Debridement Size (cm) - Length 1.8 -Post Debridement Size (cm) - Width 1.3 -Post Debridement Size (cm) - Depth 0.8 -Total Square Cm 2.34 -Wound/Ulcer Outcome Not Healed -Ulcer Cleansing Rinsed/ Irrigated with Saline -Foul Odor after Cleansing No -Bioengineered Tissue No -Bleeding Controlled with Pressure -Offloading Yes -Type of Offloading Knee Walker -Treatment Response Procedure Tolerated Well Pain Scale: 0-10 Numeric Is Patient Pain Free? Yes Wound debrided: plantar heel Laterality: Right Wound Grade/Stage: grade 3 Type of Debridement: Excisional debridement Anesthesia Used: 5% Lidocaine Gel Depth: in the subcutaneous layer Percentage of wound debrided: 100 Instrument Used: #15 blade Tissue Removed: fibrous, devitalized subcutaneous, biofilm, slough Severity: Fat Layer Exposed Amount of bleeding with debridement: Mild Bleeding Controlled with: Pressure Patient tolerated procedure well - Additional Wound Wound debrided: medial heel Laterality: Right Wound Grade/Stage: grade 1 Type of Debridement: Excisional debridement Anesthesia Used: 5% Lidocaine Gel Depth: in the subcutaneous layer Percentage of wound debrided: 100 Instrument Used: #15 blade Tissue Removed: fibrous, devitalized subcutaneous, biofilm, slough Severity: Fat Layer Exposed Amount of bleeding with debridement: Mild Bleeding Controlled with: Pressure Patient tolerated procedure: Patient tolerated procedure well Assessment/Plan Active Problems (Last Reviewed 09/15/19 @ 08:[address] Td Bronson MD) PVD (peripheral vascular disease) (Chronic) Type 2 diabetes mellitus with diabetic polyneuropathy (Chronic) Chronic ulcer of left foot with fat layer exposed (Chronic) Assessment: Left heel ulcer, prior bacterial contamination with multiple organisms with previous grade 3 ulcer status with osteomyelitis. ulcer medial left heel, stable with infection. Left Achilles rupture healed. Peripheral vascular disease with recent intervention performed. Diabetes with neuropathy. Malnutrition. Other comorbidities. Walking difficulty. Delayed healing Plan: This patient was examined and evaluated today. Subcutaneous excisional debridement was performed as noted in the clinical panel. The medial ulcer site has stabilized since he has been on minocycline previously. His culture results were reviewed. I recommend that he washes the site with antimicrobial medical grade Cherelle-Hex soap with each dressing change. His recent cultures demonstrate kocuria, mssa, and acinetobacter. He has a h/o c-diff. It is okay to continue with the Aquacel Ag to the plantar ulcer site which appears to be doing well. I recommend he continues probiotic use. He relates he is not been doing this and he has not plan to use probiotics. The purpose and benefits of doing so were reviewed with him. He was advised to continue knee roller use at home to aid with compliance. He is demonstrating some signs of healing improvement since he is recently been revascularized and the wound size is also reduced to the plantar aspect of the heel. He certainly has many comorbidities and this makes him higher risk for infection and delayed healing. It is noted his noninvasive vascular studies were abnormal again and he has had previous lower extremity ulcers with significant delayed healing. He was advised to follow-up with Dr. Beck, vascular surgeon, as scheduled and advised. We also discussed the treatment option of hyperbaric oxygen therapy because he does have a grade 3 ulcer and prior diagnosis of osteomyelitis. He is not able to come to the wound care center on a daily basis and is not ready to commit to this process. The indications, planned application, anticipated healing time management and benefits and complications were discussed. I answered his questions. We also discussed transitioning him to a palliative care program. Given his status change, I recommend this at this time. He will return to [facility] in 2 weeks. 2019 [facility] entry-. Reviewed today: He denies falling within the past year. His medication allergy profile has been reconciled. Reviewed August 18, 2019: He is having a current smoking status and cessation intervention was advised. His blood pressure is 163/94 which is elevated. I recommend he follows up with his primary care physician due to associated risk factors. He is advised to maintain appropriate activity and diet as well. He does have an advanced care plan on file. His pneumococcal influenza immunization status was also reviewed.
[2020-01-19 08:05] VITALS: BP 148/82; PULSE 69; RESP 18; TEMP 36.2; BMI 27.3
--- NOTE | 2020-01-19 09:06 | PCM.WC.PN ---
(1) Chronic ulcer of left foot with fat layer exposed Status: Chronic Current Visit: Yes Code(s): L97.522 - Non-pressure chronic ulcer of other part of left foot with fat layer exposed (2) PVD (peripheral vascular disease) Status: Chronic Current Visit: Yes Code(s): I73.9 - Peripheral vascular disease, unspecified (3) Type 2 diabetes mellitus with diabetic polyneuropathy Status: Chronic Current Visit: Yes Code(s): E11.42 - Type 2 diabetes mellitus with diabetic polyneuropathy Type of Wound Date of Service: 01/19/20 Chief Complaint: Left heel ulcer History of Wound: This 74-year-old male with multiple comorbidities was seen today for left plantar heel ulcer. He continues to remain nonweightbearing. He had vascular surgery intervention performed recently with Dr. Beck and underwent vascular intervention. He defers additional advanced treatment such as hyperbaric oxygen. He is unable to transport on his own without assistance. He is currently ambulating with the assistance of a knee scooter. He denies fever, chill, nausea, vomiting, loss of appetite, or diarrhea. He denies redness or odor coming from the foot. It is noted he has had significant delays in healing. He is on a palliative program at this time. Progress of Wound: Improving plantar heel. Healed medial heel ulcer - Physical Exam Vital Signs Temp Pulse Resp BP 97.1 F L 69 18 148/82 H 01/19/20 08:05 01/19/20 08:05 01/19/20 08:05 01/19/20 08:05 General: Alert, Oriented x3, Cooperative, No apparent distress HEENT: Atraumatic Extremities: No cyanosis, Capillary Refill Less than 3 Seconds, No Calf Tenderness, Diminished Peripheral Pulses, Edema Skin: Ulcer/ Wound - No purulence, erythema, string, odor, infection. Full epithelialization is noted to the medial ulcer site. The plantar ulcer site has a granular base and peripheral callus Wound Measurements and Assessment WC - Nurse 1 - General Ulcer Measurement Start: 01/05/20 08:10 Freq: Status: Active Protocol: Activity Type Activity Date Activity User E-Sign Co-Sign Detail Recorded Client Recorded Date Recorded By Document 01/19/20 08:05 DV [id number] 01/19/20 08:13 DV 01/19/20 08:05 Wound Center Nurse 1 [Ulcer Assessment] 3-left posterior heel -Combined with other wound No -Current Size (cm) - Length 1.8 -Current Size (cm) - Width 1.1 -Current Size (cm) - Depth 1.0 -Total Square Cm 1.98 -Photo Taken No -Epithelialization None Present -Tunneling No -Undermining/Tunneling No -Circular Undermining No -Classification - Thickness Full Thickness without Exposed Support Structure -Exudate Amt Large -Exudate Type Serosanguineous -Wound Margin Indistinct, Non -Visible -Granulation Amt None Present (0 %) -Granulation Quality N/A -Slough/Fibrin Yes -Necrosis Amt None Present (0 %) -Necrotic Tissue Type Adherent Slough -Structure Exposed None/Limited to Skin Breakdown -Texture (Emily-wound Skin Appearance) Assessed, Scarring -Moisture (Emily-wound Skin Appearance Assessed, ) Weeping -Color (Emily-wound Skin Appearance) Assessed, Erythema -Temperature (Emily-wound Skin No Abnormality Appearance) (Pt Warm) -Ulcer Cleansing Rinsed/ Irrigated with Saline -Foul Odor after Cleansing No -Anesthetic Used 4% Lidocaine Solution #1 Left Heel -Combined with other wound No WC - Nurse 2 - General Ulcer CM Notes Start: 01/05/20 08:10 Freq: Status: Active Protocol: Activity Type Activity Date Activity User E-Sign Co-Sign Detail Recorded Client Recorded Date Recorded By Document 01/19/20 08:26 JF [id number] 01/19/20 08:28 GAGE 01/19/20 08:26 Wound Center Nurse 2 [Procedure/Treatment] 3-left posterior heel -Time 08:27 -Correct Patient Yes -Correct Side, Site, Position Yes -Correct Procedure Yes -Procedure Performed Yes -Type of Procedure Debridement -Clinical Debridement Subcutaneous -Post Debridement Size (cm) - Length 1.8 -Post Debridement Size (cm) - Width 1.2 -Post Debridement Size (cm) - Depth 1.0 -Total Square Cm 2.16 -Wound/Ulcer Outcome Not Healed -Ulcer Cleansing Rinsed/ Irrigated with Saline -Foul Odor after Cleansing No -Bioengineered Tissue No -Bleeding Controlled with Pressure -Offloading Yes -Type of Offloading Knee Walker -Treatment Response Procedure Tolerated Well #1 Left Heel -Correct Patient No -Correct Side, Site, Position No -Correct Procedure No -Procedure Performed No -Post Debridement Size (cm) - Length 0 -Post Debridement Size (cm) - Width 0 -Post Debridement Size (cm) - Depth 0 -Total Square Cm 0 -Wound/Ulcer Outcome Healed- Epithelialized [See Physician Procedure note for Specifics] Pain Scale: 0-10 Numeric [Pain] -Is Patient Pain Free? Yes Musculoskeletal: No Tenderness to Palpation of Joints or Extremities, Muscle Wasting Neurological: - - Lack of epicritic sensation to light touch Psych/Mental Status: Normal Affect, Appropriate Debridement Note Post-Debridement Measurements/Treatment WC - Nurse 2 - General Ulcer CM Notes Start: 01/05/20 08:10 Freq: Status: Active Protocol: Activity Type Activity Date Activity User E-Sign Co-Sign Detail Recorded Client Recorded Date Recorded By Document 01/05/20 08:30 GAGE [id number] 01/05/20 08:33 Document 01/19/20 08:26 [id number] 01/19/20 08:28 01/05/20 01/19/20 08:30 08:26 Wound Center Nurse 2 3-left posterior heel -Time 08:31 08:27 -Correct Patient Yes Yes -Correct Side, Site, Position Yes Yes -Correct Procedure Yes Yes -Procedure Performed Yes Yes -Type of Procedure Debridement Debridement -Clinical Debridement Subcutaneous Subcutaneous -Post Debridement Size (cm) - Length 0.6 1.8 -Post Debridement Size (cm) - Width 0.6 1.2 -Post Debridement Size (cm) - Depth 0.1 1.0 -Total Square Cm 0.36 2.16 -Wound/Ulcer Outcome Not Healed Not Healed -Ulcer Cleansing Rinsed/ Rinsed/ Irrigated with Irrigated with Saline Saline -Foul Odor after Cleansing No No -Bioengineered Tissue No No -Bleeding Controlled with Pressure Pressure -Offloading Yes Yes -Type of Offloading Knee Walker Knee Walker -Treatment Response Procedure Procedure Tolerated Well Tolerated Well #1 Left Heel -Time 08:31 -Correct Patient Yes No -Correct Side, Site, Position Yes No -Correct Procedure Yes No -Procedure Performed Yes No -Type of Procedure Debridement -Clinical Debridement Subcutaneous -Post Debridement Size (cm) - Length 1.8 0 -Post Debridement Size (cm) - Width 1.3 0 -Post Debridement Size (cm) - Depth 0.8 0 -Total Square Cm 2.34 0 -Wound/Ulcer Outcome Not Healed Healed- Epithelialized -Ulcer Cleansing Rinsed/ Irrigated with Saline -Foul Odor after Cleansing No -Bioengineered Tissue No -Bleeding Controlled with Pressure -Offloading Yes -Type of Offloading Knee Walker -Treatment Response Procedure Tolerated Well Pain Scale: 0-10 Numeric Is Patient Pain Free? Yes Yes Wound debrided: plantar heel Laterality: Left Wound Grade/Stage: grade 3 Type of Debridement: Excisional debridement Anesthesia Used: 5% Lidocaine Gel Depth: in the subcutaneous layer Percentage of wound debrided: 100 Instrument Used: #15 blade Tissue Removed: fibrous, devitalized subcutaneous, biofilm, slough Severity: Fat Layer Exposed Amount of bleeding with debridement: Mild Bleeding Controlled with: Pressure Patient tolerated procedure well Assessment/Plan Active Problems (Last Reviewed 09/15/19 @ 08:[address] Td Bronson MD) PVD (peripheral vascular disease) (Chronic) Type 2 diabetes mellitus with diabetic polyneuropathy (Chronic) Chronic ulcer of left foot with fat layer exposed (Chronic) Assessment: Left heel ulcer, prior bacterial contamination with multiple organisms with previous grade 3 ulcer status with osteomyelitis. ulcer medial left heel, healed. Left Achilles rupture healed. Peripheral vascular disease with recent intervention performed. Diabetes with neuropathy. Malnutrition. Other comorbidities. Walking difficulty. Delayed healing Plan: This patient was examined and evaluated today. Subcutaneous excisional debridement was performed as noted in the clinical panel. Medial ulcer site is healed. There are no signs of infection noted today. It is okay to continue with the Aquacel Ag to the plantar ulcer site which appears to be doing well. I recommend he continues probiotic use. He relates he is not been doing this and he has not plan to use probiotics. The purpose and benefits of doing so were reviewed with him. He was advised to continue knee roller use at home to aid with compliance. He is demonstrating some signs of healing improvement since he is recently been revascularized and the wound size is also reduced to the plantar aspect of the heel. He certainly has many comorbidities and this makes him higher risk for infection and delayed healing. It is noted his noninvasive vascular studies were abnormal again and he has had previous lower extremity ulcers with significant delayed healing. He was advised to follow-up with Dr. Beck, vascular surgeon, as scheduled and advised. We also discussed the treatment option of hyperbaric oxygen therapy because he does have a grade 3 ulcer and prior diagnosis of osteomyelitis. He is not able to come to the wound care center on a daily basis and is not ready to commit to this process. The indications, planned application, anticipated healing time management and benefits and complications were discussed. I answered his questions. We also discussed transitioning him to a palliative care program. Given his status change, I recommend this at this time. He will return to clinic in 2 weeks. 2019 [employer] entry-. Reviewed today: He denies falling within the past year. His medication allergy profile has been reconciled. Reviewed August 18, 2019: He is having a current smoking status and cessation intervention was advised. His blood pressure is 163/94 which is elevated. I recommend he follows up with his primary care physician due to associated risk factors. He is advised to maintain appropriate activity and diet as well. He does have an advanced care plan on file. His pneumococcal influenza immunization status was also reviewed.
== END 2020-01-25 23:59 ==
LOC: WC 08:00
PROVIDERS: Family Provider Family Medicine; PCP Family Medicine; Referring Provider Podiatrist; Visit Provider Podiatrist
DX: E11.621 Type 2 diabetes mellitus with foot ulcer (principal); E11.42 Type 2 diabetes mellitus with diabetic polyneuropathy; E11.51 Type 2 diabetes mellitus with diabetic peripheral angiopathy without gangrene; L97.422 Non-pressure chronic ulcer of left heel and midfoot with fat layer exposed; R26.2 Difficulty in walking, not elsewhere classified
CPT/HCPCS: 11042

== ENCOUNTER → 2020-01-29 12:09 | Outpatient (CLI) | payer MEDICARE, SELFPAY ==
[2020-01-26 15:57] VITALS: BMI 27.3
[2020-01-29 12:33] LABS: Erythrocyte Sedimentation Rate 66 mm/hr (0-20)
[2020-01-29 12:34] LABS: Absolute Lymphocyte Count 1.83 X10^3/uL (0.83-4.51); Absolute Neutrophil Count 5.2 X10^3/uL (2.0-7.7); Basophil# 0.05 X10^3/uL; Basophil% 0.6 % (0-1); Eosinophil# 0.13 X10^3/uL; Eosinophils% 1.6 % (0-5); Hematocrit 37.5 % (40-54); Hemoglobin 12.4 g/dL (13.0-16.5); Lymphocyte # 1.83 X10^3/ul (4.0); Lymphocyte % 22.8 % (19-41); Mean Corp Hgb Conc 33.1 g/dL (32-36); Mean Corpuscular Volume 90.6 fL (80-94); Mean Platelet Vol. 9.8 fl (6.2-12.0); Monocyte# 0.84 X10^3/uL; Monocyte% 10.5 % (0-10); NRBC Flagged by Analyzer 0 % (0-5); Neutrophil # 5.16 X10^3/uL (2.7-7.7); Neutrophil % 64.3 % (47-70); Platelet Count 309 K/mm3 (150-450); RBC Distribution Width SD 42.7 fl (35.1-43.9); Red Blood Count 4.14 M/mm3 (4.6-6.2)
[2020-01-29 12:43] LABS: ALB/GLOB Ratio 0.7 RATIO (0.9-2.4); AST(SGOT) 16 U/L (15-37); Alanine Aminotransfer ALT/SGPT 21 U/L (16-61); Albumin, Serum 3.4 g/dL (3.2-5.0); Alkaline Phosphatase 78 U/L (45-117); Anion Gap 8 (5-15); BUN 19 mg/dL (7-18); BUN/Creat Ratio 20.2 RATIO (10-20); Calcium,Total 9.3 mg/dL (8.5-10.1); Chloride 101 mmol/L (98-107); Creatinine, Serum 0.94 mg/dL (0.70-1.30); EST Glomerular Filtration Rate 84 mL/min (>60); Est Glom Filt Rate - Afr Amer 101 mL/min (>60); Globulin 4.6 g/dL (2.2-4.2); Glucose 230 mg/dL (74-106); Potassium 4.3 mmol/L (3.5-5.1); Sodium Level 136 mmol/L (136-145)
[2020-01-29 12:53] LABS: Hemoglobin A1c 7.4 % (3.8-5.6)
== END ==
PROVIDERS: PCP Family Medicine; Visit Provider Podiatrist
DX: L97.522 Non-pressure chronic ulcer of other part of left foot with fat layer exposed (principal)
CPT/HCPCS: 80053; 83036; 85025; 85652; 86140

== ENCOUNTER 2020-02-16 08:00 | Outpatient (RCR) | payer MEDICARE, SELFPAY ==
[2020-01-26 00:21] VITALS: BP 148/82; PULSE 69; RESP 18; TEMP 36.2
[2020-01-26 15:57] VITALS: BP 133/69; PULSE 94; RESP 18; TEMP 36; BMI 27.3
--- NOTE | 2020-01-26 16:54 | PCM.WC.PN ---
(1) PVD (peripheral vascular disease) Status: Chronic Current Visit: Yes Code(s): I73.9 - Peripheral vascular disease, unspecified (2) Colonization status Status: Resolved Current Visit: Yes Code(s): Z22.9 - Carrier of infectious disease, unspecified (3) Type 2 diabetes mellitus with diabetic polyneuropathy Status: Chronic Current Visit: Yes Code(s): E11.42 - Type 2 diabetes mellitus with diabetic polyneuropathy (4) Delayed wound healing Status: Chronic Current Visit: Yes Code(s): T14.8XXD - Other injury of unspecified body region, subsequent encounter (5) Left foot infection Status: Suspected Current Visit: Yes Code(s): L08.9 - Local infection of the skin and subcutaneous tissue, unspecified (6) Osteomyelitis Status: Resolved Current Visit: Yes Qualifiers: Laterality: left Code(s): M86.9 - Osteomyelitis, unspecified (7) Chronic ulcer of left foot with fat layer exposed Status: Chronic Current Visit: Yes Code(s): L97.522 - Non-pressure chronic ulcer of other part of left foot with fat layer exposed Type of Wound Date of Service: 01/26/20 Chief Complaint: Left heel ulcer History of Wound: This 74-year-old male with multiple comorbidities was seen today for left plantar heel ulcer. He is also seen today for new and return to the medial heel ulcer with increased drainage and swelling. He was seen as an add-on patient this afternoon after his home nurse called in with concern of his increased activity and potential infection. He admits he has not been maintaining a nonweightbearing status and has been doing additional work outside such as applying gravel to his driveway. He had vascular surgery intervention performed recently with Dr. Beck and underwent vascular intervention. He defers additional advanced treatment such as hyperbaric oxygen. He is unable to transport on his own without assistance. He is currently ambulating with the assistance of a knee scooter when he is not walking on his foot in a closed shoe while completing work in his home. He denies fever, chill, nausea, vomiting, loss of appetite, or diarrhea. He denies redness or odor coming from the foot. It is noted he has had significant delays in healing. He is on a palliative program at this time. He relates he continues with alcohol cessation. He has a significant history of gastro enteritis, chronic and recurrent antibiotic use, and C. difficile complications. Progress of Wound: Improving plantar heel. new medial heel ulcer with inflammation - Physical Exam Vital Signs Temp Pulse Resp BP 96.8 F L 94 18 133/69 H 01/26/20 15:57 01/26/20 15:57 01/26/20 15:57 01/26/20 15:57 General: Alert, Oriented x3, Cooperative, No apparent distress HEENT: Atraumatic Extremities: No cyanosis, Capillary Refill Less than 3 Seconds, No Calf Tenderness, Diminished Peripheral Pulses, Edema - Mild heel Skin: Ulcer/ Wound - There is no purulence or odor on expression. There is a blister to the medial heel that is new and there is serosanguineous and fibrinous drainage. Upon debridement of the outer layer of the blister there is exposed fat pad and the drainage on the bandage is yellow and even green. Concern for breakdown of the aqua cell AG which can look like this at times versus infection or bacterial colonization. The plantar ulcer site no longer has exposed bone and there is actually reduced callus formation. His skin in general is hairless and atrophic Wound Measurements and Assessment WC - Nurse 1 - General Ulcer Measurement Start: 01/26/20 15:56 Freq: Status: Active Protocol: Activity Type Activity Date Activity User E-Sign Co-Sign Detail Recorded Client Recorded Date Recorded By Document 01/26/20 15:57 GAGE [id number] 01/26/20 16:05 GAGE 01/26/20 15:57 Wound Center Nurse 1 [Ulcer Assessment] 4-left medial ankle ulcer -Combined with other wound No -Current Size (cm) - Length 1.2 -Current Size (cm) - Width 1.3 -Current Size (cm) - Depth 0.5 -Total Square Cm 1.56 -Photo Taken Yes -Epithelialization Small 1-33% -Tunneling No -Undermining/Tunneling No -Circular Undermining No -Exudate Amt Medium -Exudate Type Serosanguineous -Wound Margin Flat & Intact -Granulation Amt Large (67-100%) -Granulation Quality Red -Slough/Fibrin Yes -Necrosis Amt Small (1-33%) -Necrotic Tissue Type Adherent Slough -Structure Exposed N/A -Texture (Emily-wound Skin Appearance) Assessed, Localized Edema -Moisture (Emily-wound Skin Appearance Assessed,Dry/ ) Scaly -Color (Emily-wound Skin Appearance) Assessed -Temperature (Emily-wound Skin No Abnormality Appearance) (Pt Warm) -Tenderness on Palpation (Emily-wound No Skin Appearance) -Ulcer Cleansing Rinsed/ Irrigated with Saline -Foul Odor after Cleansing No -Anesthetic Used 4% Lidocaine Solution 3-left posterior heel -Combined with other wound No -Current Size (cm) - Length 1.8 -Current Size (cm) - Width 1.5 -Current Size (cm) - Depth 0.8 -Total Square Cm 2.70 -Photo Taken No -Epithelialization Small 1-33% -Tunneling No -Undermining/Tunneling No -Circular Undermining No -Exudate Amt Medium -Exudate Type Serosanguineous -Wound Margin Flat & Intact -Granulation Amt Medium (34-66%) -Granulation Quality Red -Slough/Fibrin Yes -Necrosis Amt Small (1-33%) -Necrotic Tissue Type Adherent Slough -Structure Exposed N/A -Texture (Emily-wound Skin Appearance) Assessed,Callus -Moisture (Emily-wound Skin Appearance Assessed,Dry/ ) Scaly -Color (Emily-wound Skin Appearance) Assessed -Temperature (Emily-wound Skin No Abnormality Appearance) (Pt Warm) -Tenderness on Palpation (Emily-wound No Skin Appearance) -Ulcer Cleansing Rinsed/ Irrigated with Saline -Foul Odor after Cleansing No -Anesthetic Used 4% Lidocaine Solution [Edema Assessment] -Lower Limb Edema Present No WC - Nurse 2 - General Ulcer CM Notes Start: 01/26/20 15:56 Freq: Status: Active Protocol: Activity Type Activity Date Activity User E-Sign Co-Sign Detail Recorded Client Recorded Date Recorded By Document 01/26/20 16:06 GAGE [id number] 01/26/20 16:08 GAGE 01/26/20 16:06 Wound Center Nurse 2 [Procedure/Treatment] 4-left medial ankle ulcer -Time 16:07 -Correct Patient Yes -Correct Side, Site, Position Yes -Correct Procedure Yes -Procedure Performed Yes -Type of Procedure Debridement -Clinical Debridement Subcutaneous -Post Debridement Size (cm) - Length 1.3 -Post Debridement Size (cm) - Width 1.3 -Post Debridement Size (cm) - Depth 0.5 -Total Square Cm 1.69 -Wound/Ulcer Outcome Not Healed -Ulcer Cleansing Rinsed/ Irrigated with Saline -Foul Odor after Cleansing No -Bioengineered Tissue No -Bleeding Controlled with Pressure -Offloading Yes -Type of Offloading Knee Walker -Treatment Response Procedure Tolerated Well 3-left posterior heel -Time 16:07 -Correct Patient Yes -Correct Side, Site, Position Yes -Correct Procedure Yes -Procedure Performed Yes -Type of Procedure Debridement -Clinical Debridement Subcutaneous -Post Debridement Size (cm) - Length 1.8 -Post Debridement Size (cm) - Width 1.6 -Post Debridement Size (cm) - Depth 0.8 -Total Square Cm 2.88 -Wound/Ulcer Outcome Not Healed -Ulcer Cleansing Rinsed/ Irrigated with Saline -Foul Odor after Cleansing No -Bioengineered Tissue No -Bleeding Controlled with Pressure -Offloading Yes -Type of Offloading Knee Walker -Treatment Response Procedure Tolerated Well [See Physician Procedure note for Specifics] Pain Scale: 0-10 Numeric [Pain] -Is Patient Pain Free? Yes Musculoskeletal: No Tenderness to Palpation of Joints or Extremities, Muscle Wasting, - - Compartments are soft to palpate. No bogginess or fluctuance on palpation after blister drainage Neurological: - - Lack of epicritic sensation light touch is consistent with neuropathy status Psych/Mental Status: Normal Affect, Appropriate Debridement Note Post-Debridement Measurements/Treatment WC - Nurse 2 - General Ulcer CM Notes Start: 01/26/20 15:56 Freq: Status: Active Protocol: Activity Type Activity Date Activity User E-Sign Co-Sign Detail Recorded Client Recorded Date Recorded By Document 01/26/20 16:06 GAGE [id number] 01/26/20 16:08 GAGE 01/26/20 16:06 Wound Center Nurse 2 4-left medial ankle ulcer -Time 16:07 -Correct Patient Yes -Correct Side, Site, Position Yes -Correct Procedure Yes -Procedure Performed Yes -Type of Procedure Debridement -Clinical Debridement Subcutaneous -Post Debridement Size (cm) - Length 1.3 -Post Debridement Size (cm) - Width 1.3 -Post Debridement Size (cm) - Depth 0.5 -Total Square Cm 1.69 -Wound/Ulcer Outcome Not Healed -Ulcer Cleansing Rinsed/ Irrigated with Saline -Foul Odor after Cleansing No -Bioengineered Tissue No -Bleeding Controlled with Pressure -Offloading Yes -Type of Offloading Knee Walker -Treatment Response Procedure Tolerated Well 3-left posterior heel -Time 16:07 -Correct Patient Yes -Correct Side, Site, Position Yes -Correct Procedure Yes -Procedure Performed Yes -Type of Procedure Debridement -Clinical Debridement Subcutaneous -Post Debridement Size (cm) - Length 1.8 -Post Debridement Size (cm) - Width 1.6 -Post Debridement Size (cm) - Depth 0.8 -Total Square Cm 2.88 -Wound/Ulcer Outcome Not Healed -Ulcer Cleansing Rinsed/ Irrigated with Saline -Foul Odor after Cleansing No -Bioengineered Tissue No -Bleeding Controlled with Pressure -Offloading Yes -Type of Offloading Knee Walker -Treatment Response Procedure Tolerated Well Pain Scale: 0-10 Numeric Is Patient Pain Free? Yes Wound debrided: plantar heel Laterality: Left Wound Grade/Stage: grade 3 Type of Debridement: Excisional debridement Anesthesia Used: 5% Lidocaine Gel Depth: in the subcutaneous layer Percentage of wound debrided: 100 Instrument Used: #15 blade Tissue Removed: fibrous, devitalized subcutaneous, biofilm, slough Severity: Fat Layer Exposed Amount of bleeding with debridement: Mild Bleeding Controlled with: Pressure Patient tolerated procedure well - Additional Wound Wound debrided: medial heel(new) Laterality: Left Wound Grade/Stage: grade 1 Type of Debridement: Excisional debridement Anesthesia Used: 5% Lidocaine Gel Depth: in the subcutaneous layer Percentage of wound debrided: 100 Instrument Used: #15 blade Tissue Removed: fibrous, devitalized subcutaneous, biofilm, slough Severity: Fat Layer Exposed Amount of bleeding with debridement: Mild Bleeding Controlled with: Pressure Patient tolerated procedure: Patient tolerated procedure well Assessment/Plan Active Problems (Last Reviewed 09/15/19 @ 08:[address] Td Bronson MD) PVD (peripheral vascular disease) (Chronic) Peripheral vascular disease (Chronic) Type 2 diabetes mellitus with diabetic polyneuropathy (Chronic) Chronic ulcer of left foot with fat layer exposed (Chronic) Delayed wound healing (Chronic) Assessment: Left heel ulcer, prior bacterial contamination with multiple organisms with previous grade 3 ulcer status with osteomyelitis. ulcer medial left heel, recurrent with inflammation. Colonization versus infection work-up is in process. Left Achilles rupture healed. Peripheral vascular disease with recent intervention performed. Diabetes with neuropathy. Malnutrition. Other comorbidities. Walking difficulty. Delayed healing Plan: This patient was examined and evaluated today. Subcutaneous excisional debridement was performed as noted in the clinical panel. Medial ulcer site returned and his nurse has called in with concern of infection. The nurse also is concerned that he is very active at home and his foot is rubbing the skin wall during his shoes and his outdoor yard work. This was confirmed with Mr. Martinez today that he has been participating in these activities because he lives alone and has to do a lot. It is noted that he is also blind. He has a blister with adjacent edema. I do not appreciate significant local signs of infection however the site is inflamed. A culture was obtained and the results will be followed. If there are pathological bacteria or a significant amount of normal skin minerva bacteria in the pathological minor, antibiotics will be considered at this time. In the meantime I recommend that he washes with an antimicrobial medical group Cherelle-Hex soap. It is imperative that he keep pressure off of this site. He was advised to avoid wearing closed shoes and he must not participate in the types of yardwork that he has been performing. This is compromising his limb salvage case. I am concerned about placing him prophylactically on antibiotics he is his very fragile. He has had prior C. difficile and is at risk for losing his limb and life due to this recurrent condition. I recommend he update his labs prior to return next week as well. It is okay to continue with the Aquacel Ag to the plantar and medial ulcer site which appears to be doing well. I recommend he continues probiotic use. He relates he is not been doing this and he has not plan to use probiotics. The purpose and benefits of doing so were reviewed with him. He was advised to continue knee roller use at home to aid with compliance. He is demonstrating some signs of healing improvement since he is recently been revascularized and the wound size is also reduced to the plantar aspect of the heel. He certainly has many comorbidities and this makes him higher risk for infection and delayed healing. It is noted his noninvasive vascular studies were abnormal again and he has had previous lower extremity ulcers with significant delayed healing. He was advised to follow-up with Dr. Beck, vascular surgeon, as scheduled and advised. We also discussed the treatment option of hyperbaric oxygen therapy because he does have a grade 3 ulcer and prior diagnosis of osteomyelitis. He is not able to come to the wound care center on a daily basis and is not ready to commit to this process. The indications, planned application, anticipated healing time management and benefits and complications were discussed. We also discussed the treatment option of below-knee amputation today because she is very fatigued by having to travel to the wound care center and he is having significant delays in healing. She is absolutely not interested and is very upset with this discussion today. I reassured him he is not pressured to do anything he is not ready to proceed with at this time however this does remain a treatment option and would be indicated if he has continued failed treatment and recurrent intermittent worrisome infections. I answered his questions. He is on a palliative care program however with his current inflammation versus infection work-up in process, I recommend he return in 1 week. 2020 [facility] entry-. Reviewed today: He denies falling within the past year. His medication allergy profile has been reconciled. Reviewed August 18, 2019: He is having a current smoking status and cessation intervention was advised. His blood pressure is 163/94 which is elevated. I recommend he follows up with his primary care physician due to associated risk factors. He is advised to maintain appropriate activity and diet as well. He does have an advanced care plan on file. His pneumococcal influenza immunization status was also reviewed.
[2020-01-27 15:04] LABS: M R Staph aureus DNA By PCR Negative (Negative); Probe Check PASS; Specimen Processing Control PASS; Staph aureus DNA By PCR POSITIVE (Negative)
[2020-02-02 08:06] VITALS: BP 127/77; PULSE 92; RESP 18; TEMP 36; BMI 27.3
--- NOTE | 2020-02-02 08:47 | PN.PCM_ITS ---
(1) Chronic ulcer of left foot with fat layer exposed Status: Chronic Current Visit: Yes Code(s): L97.522 - Non-pressure chronic ulcer of other part of left foot with fat layer exposed (2) PVD (peripheral vascular disease) Status: Chronic Current Visit: Yes Code(s): I73.9 - Peripheral vascular disease, unspecified (3) Type 2 diabetes mellitus with diabetic polyneuropathy Status: Chronic Current Visit: Yes Code(s): E11.42 - Type 2 diabetes mellitus with diabetic polyneuropathy (4) Delayed wound healing Status: Chronic Current Visit: Yes Code(s): T14.8XXD - Other injury of unspecified body region, subsequent encounter (5) Left foot infection Status: Resolved Current Visit: Yes Code(s): L08.9 - Local infection of the skin and subcutaneous tissue, unspecified (6) Osteomyelitis Status: Resolved Current Visit: Yes Qualifiers: Laterality: left Code(s): M86.9 - Osteomyelitis, unspecified Type of Wound Date of Service: 02/02/20 Chief Complaint: Left heel ulcer History of Wound: This 74-year-old male with multiple comorbidities was seen today for left plantar heel ulcer. He is also seen today for medial heel ulcer and plantar foot ulcer with decreased drainage and swelling. He has significantly reduced his yard work requirements at home and has hired some help. He is resting and elevating his leg and relates his swelling and redness have decreased. He has eliminated his shoe rubbing on his foot. Progress of Wound: Stable and improving medial heel. Plantar heel now probes to bone - Physical Exam Vital Signs Temp Pulse Resp BP 96.8 F L 92 18 127/77 H 02/02/20 08:06 02/02/20 08:06 02/02/20 08:06 02/02/20 08:06 General: Alert - Dr., Oriented x3, Cooperative, No apparent distress HEENT: Atraumatic Extremities: No cyanosis, Capillary Refill Less than 3 Seconds, No Calf Tenderness, Diminished Peripheral Pulses, Edema - decreased right limb Skin: Ulcer/ Wound - The emily-ulcer inflammation has resolved and there is no erythema, streaking, edema, odor, or purulence or necrosis. The medial heel ulcer is significantly reduced in size and does not probe to bone. The plantar foot ulcer does have a reduced centralized depth and healthy granulation tissue. However at the 8 o'clock position there is a new area that probes deep to the bone at approximately 1 cm. The bone is firm and is not directly visualized Wound Measurements and Assessment WC - Nurse 1 - General Ulcer Measurement Start: 01/26/20 15:56 Freq: Status: Active Protocol: Activity Type Activity Date Activity User E-Sign Co-Sign Detail Recorded Client Recorded Date Recorded By Document 02/02/20 08:06 DV [id number] 02/02/20 08:17 DV 02/02/20 08:06 Wound Center Nurse 1 [Ulcer Assessment] 4-Left Medial Posterior Heel -Combined with other wound No -Current Size (cm) - Length 1.0 -Current Size (cm) - Width 1.7 -Current Size (cm) - Depth 0.1 -Total Square Cm 1.70 -Photo Taken No -Epithelialization None Present -Tunneling No -Undermining/Tunneling No -Circular Undermining No -Classification - Thickness Full Thickness without Exposed Support Structure -Exudate Amt Medium -Exudate Type Serosanguineous -Wound Margin Flat & Intact -Granulation Amt None Present (0 %) -Granulation Quality N/A -Slough/Fibrin Yes -Necrosis Amt Medium (34-66%) -Necrotic Tissue Type Adherent Slough -Structure Exposed None/Limited to Skin Breakdown -Texture (Emily-wound Skin Appearance) Assessed -Moisture (Emily-wound Skin Appearance Assessed ) -Color (Emily-wound Skin Appearance) Assessed -Temperature (Emily-wound Skin No Abnormality Appearance) (Pt Warm) -Tenderness on Palpation (Emily-wound No Skin Appearance) -Ulcer Cleansing Rinsed/ Irrigated with Saline -Foul Odor after Cleansing No -Anesthetic Used 4% Lidocaine Solution 3-left posterior heel -Combined with other wound No -Current Size (cm) - Length 1.9 -Current Size (cm) - Width 1.5 -Current Size (cm) - Depth 0.6 -Total Square Cm 2.85 -Photo Taken No -Epithelialization None Present -Tunneling No -Undermining/Tunneling No -Circular Undermining No -Classification - Thickness Full Thickness without Exposed Support Structure -Exudate Amt Large -Exudate Type Serosanguineous -Wound Margin Flat & Intact -Granulation Amt Small (1-33%) -Granulation Quality Pale,Merriman -Slough/Fibrin Yes -Necrosis Amt Medium (34-66%) -Necrotic Tissue Type Adherent Slough -Structure Exposed None/Limited to Skin Breakdown -Texture (Emily-wound Skin Appearance) Assessed, Localized Edema ,Scarring -Moisture (Emily-wound Skin Appearance Assessed, ) Weeping -Color (Emily-wound Skin Appearance) Assessed, Erythema -Temperature (Emily-wound Skin No Abnormality Appearance) (Pt Warm) -Tenderness on Palpation (Emily-wound No Skin Appearance) -Ulcer Cleansing Rinsed/ Irrigated with Saline -Foul Odor after Cleansing No -Anesthetic Used 4% Lidocaine Solution [Edema Assessment] -Lower Limb Edema Present No Musculoskeletal: No Tenderness to Palpation of Joints or Extremities, Muscle Wasting, - - No bogginess or fluctuance on palpation to the right foot or leg Neurological: - - Lack of normal epicritic sensation to light touch is consistent with neuropathy status Psych/Mental Status: Normal Affect, Appropriate Debridement Note Post-Debridement Measurements/Treatment WC - Nurse 2 - General Ulcer CM Notes Start: 01/26/20 15:56 Freq: Status: Active Protocol: Activity Type Activity Date Activity User E-Sign Co-Sign Detail Recorded Client Recorded Date Recorded By Document 01/26/20 16:06 GAGE [id number] 01/26/20 16:08 GAGE 01/26/20 16:06 Wound Center Nurse 2 4-Left Medial Posterior Heel -Time 16:07 -Correct Patient Yes -Correct Side, Site, Position Yes -Correct Procedure Yes -Procedure Performed Yes -Type of Procedure Debridement -Clinical Debridement Subcutaneous -Post Debridement Size (cm) - Length 1.3 -Post Debridement Size (cm) - Width 1.3 -Post Debridement Size (cm) - Depth 0.5 -Total Square Cm 1.69 -Wound/Ulcer Outcome Not Healed -Ulcer Cleansing Rinsed/ Irrigated with Saline -Foul Odor after Cleansing No -Bioengineered Tissue No -Bleeding Controlled with Pressure -Offloading Yes -Type of Offloading Knee Walker -Treatment Response Procedure Tolerated Well 3-left posterior heel -Time 16:07 -Correct Patient Yes -Correct Side, Site, Position Yes -Correct Procedure Yes -Procedure Performed Yes -Type of Procedure Debridement -Clinical Debridement Subcutaneous -Post Debridement Size (cm) - Length 1.8 -Post Debridement Size (cm) - Width 1.6 -Post Debridement Size (cm) - Depth 0.8 -Total Square Cm 2.88 -Wound/Ulcer Outcome Not Healed -Ulcer Cleansing Rinsed/ Irrigated with Saline -Foul Odor after Cleansing No -Bioengineered Tissue No -Bleeding Controlled with Pressure -Offloading Yes -Type of Offloading Knee Walker -Treatment Response Procedure Tolerated Well Pain Scale: 0-10 Numeric Is Patient Pain Free? Yes Wound debrided: medial heel Laterality: Right Wound Grade/Stage: grade 1 Type of Debridement: Excisional debridement Anesthesia Used: 5% Lidocaine Gel Depth: in the subcutaneous layer Percentage of wound debrided: 100 Instrument Used: #15 blade Tissue Removed: fibrous, devitalized subcutaneous, biofilm, slough Severity: Fat Layer Exposed Amount of bleeding with debridement: Mild Bleeding Controlled with: Pressure Patient tolerated procedure well Post debridement measurement 1.1 x 1.8 x 0.1 cm - Additional Wound Wound debrided: plantar heel Laterality: Right Wound Grade/Stage: grade 3 Type of Debridement: Excisional debridement Anesthesia Used: 5% Lidocaine Gel Depth: in the subcutaneous layer Percentage of wound debrided: 100 Instrument Used: #15 blade - Post debridement measurement 2.0 x 1.6 x 1.0 cm Tissue Removed: fibrous, devitalized subcutaneous, biofilm, slough Severity: Fat Layer Exposed Amount of bleeding with debridement: Mild Bleeding Controlled with: Pressure Patient tolerated procedure: Patient tolerated procedure well Assessment/Plan Active Problems (Last Reviewed 09/15/19 @ 08:[address] Td Bronson MD) PVD (peripheral vascular disease) (Chronic) Peripheral vascular disease (Chronic) Type 2 diabetes mellitus with diabetic polyneuropathy (Chronic) Chronic ulcer of left foot with fat layer exposed (Chronic) Delayed wound healing (Chronic) Assessment: Left heel ulcer previous grade 3 ulcer status with osteomyelitis that has stabilized and looks clinically stable but has newer deeper probing to bone today. ulcer medial left heel, recurrent with resolved inflammation. Peripheral vascular disease with recent intervention performed. Diabetes with neuropathy. Malnutrition. Other comorbidities. Walking difficulty. Delayed healing Plan: This patient was examined and evaluated today. Subcutaneous excisional debridement was performed as noted in the clinical panel. To continue washing h is foot with [employer] Cherelle-Hex soap. It is imperative that he keep pressure off of this site. He has hired somebody to help with his yard work which is great. He was advised to avoid wearing closed shoes and he must not participate in the types of yardwork that he has been performing. This is compromising his limb salvage case. His labs were reviewed and he did not demonstrate leukocytosis. He does have elevated C-reactive protein and an ESR of 66. His cultures demonstrate corynebacterium and MSSA is consistent with skin minerva. His C. difficile history is also noted. This will be monitored very close. I would like to update an x-ray of his hindfoot to evaluate for any new osseous destruction. He does have a prior diagnosis of osteomyelitis that was previously treated surgically and medically with IV antibiotics. He is concerned about going to the hospital during COV to get x-rays and I offered that he can have this done at the [facility] center. He will try to get this x-ray done by next week. He understands if there is continued deterioration or any evidence of acute on chronic osteomyelitis and infectious disease referral antibiotics will be needed again. It is okay to continue with the Aquacel Ag to the plantar and medial ulcer site which appears to be doing well. I recommend he continues probiotic use. He relates he is not been doing this and he has not plan to use probiotics. The purpose and benefits of doing so were reviewed with him. He was advised to continue knee roller use at home to aid with compliance. He certainly has many comorbidities and this makes him higher risk for infection and delayed healing. It is noted his noninvasive vascular studies were abnormal again and he has had previous lower extremity ulcers with significant delayed healing. He was advised to follow-up with Dr. Beck, vascular surgeon, as scheduled and advised. He has had prior intervention already. We also discussed the treatment option of hyperbaric oxygen therapy because he does have a grade 3 ulcer and prior diagnosis of osteomyelitis. He is not able to come to the wound care center on a daily basis and is not ready to commit to this process. The indications, planned application, anticipated healing time management and benefits and complications were discussed. We also discussed the treatment option of below-knee amputation today because she is very fatigued by having to travel to the wound care center and he is having significant delays in healing. She is absolutely not interested and is very upset with this discussion today. I reassured him he is not pressured to do anything he is not ready to proceed with at this time however this does remain a treatment option and would be indicated if he has continued failed treatment and recurrent intermittent worrisome infections. I answered his questions. He is on a palliative care program however with his current status changes being monitored, I recommend he returns in 1 week. 2019 [facility] entry-. Reviewed today: He denies falling within the past year. His medication allergy profile has been reconciled. Reviewed August 18, 2019: He is having a current smoking status and cessation intervention was advised. His blood pressure is 163/94 which is elevated. I recommend he follows up with his primary care physician due to associated risk factors. He is advised to maintain appropriate activity and diet as well. He does have an advanced care plan on file. His pneumococcal influenza immunization status was also reviewed.
[2020-02-09 08:07] VITALS: BP 155/75; PULSE 87; RESP 20; TEMP -17.5; TEMP 0.5; BMI 27.3
--- NOTE | 2020-02-09 10:25 | PCM.WC.PN ---
(1) Chronic ulcer of left foot with fat layer exposed Status: Chronic Code(s): L97.522 - Non-pressure chronic ulcer of other part of left foot with fat layer exposed (2) PVD (peripheral vascular disease) Status: Chronic Code(s): I73.9 - Peripheral vascular disease, unspecified (3) Type 2 diabetes mellitus with diabetic polyneuropathy Status: Chronic Code(s): E11.42 - Type 2 diabetes mellitus with diabetic polyneuropathy (4) Delayed wound healing Status: Chronic Code(s): T14.8XXD - Other injury of unspecified body region, subsequent encounter (5) Left foot infection Status: Resolved Code(s): L08.9 - Local infection of the skin and subcutaneous tissue, unspecified (6) Osteomyelitis Status: Suspected Qualifiers: Laterality: left Code(s): M86.9 - Osteomyelitis, unspecified Type of Wound Date of Service: 02/09/20 Chief Complaint: Left heel ulcer History of Wound: This 74-year-old male with multiple comorbidities was seen today for left plantar heel ulcer. He is also seen today for medial heel ulcer and plantar foot ulcer with decreased drainage and swelling. He now has somebody helping him with his yard work. Progress of Wound: Stable and improving medial heel. Plantar heel now probes to bone - Physical Exam Vital Signs Temp Pulse Resp BP 0.5 F L 87 20 H 155/75 H 02/09/20 08:07 02/09/20 08:07 02/09/20 08:07 02/09/20 08:07 General: Alert, Oriented x3, Cooperative, No apparent distress HEENT: Atraumatic Extremities: No cyanosis, Capillary Refill Less than 3 Seconds, No Calf Tenderness, Diminished Peripheral Pulses, Edema Skin: Ulcer/ Wound - No purulence, erythema, streaking, odor, infection. The concern here is that there is continued probe to bone and this feels firm. The adjacent skin is atrophic and hairless Wound Measurements and Assessment WC - Nurse 1 - General Ulcer Measurement Start: 01/26/20 15:56 Freq: Status: Active Protocol: Activity Type Activity Date Activity User E-Sign Co-Sign Detail Recorded Client Recorded Date Recorded By Document 02/09/20 08:07 DL [id number] 02/09/20 08:10 DL 02/09/20 08:07 Wound Center Nurse 1 [Ulcer Assessment] 4-Left Medial Posterior Heel -Current Size (cm) - Length 1.8 -Current Size (cm) - Width 1.8 -Current Size (cm) - Depth 0.5 -Total Square Cm 3.24 -Photo Taken No -Exudate Amt Medium -Exudate Type Serosanguineous -Wound Margin Thickened -Granulation Amt Small (1-33%) -Granulation Quality [place] -Necrosis Amt Large (67-100%) -Necrotic Tissue Type Adherent Slough -Structure Exposed Bone -Texture (Emily-wound Skin Appearance) Scarring -Moisture (Emily-wound Skin Appearance Maceration ) -Color (Emily-wound Skin Appearance) No Abnormality -Ulcer Cleansing Wound Cleanser -Foul Odor after Cleansing No -Anesthetic Used 4% Lidocaine Solution 3-left posterior heel -Current Size (cm) - Length 0.2 -Current Size (cm) - Width 0.2 -Current Size (cm) - Depth 0.2 -Total Square Cm 0.04 -Photo Taken No -Maximum Distance #2 (cm) 0.2 -Circular Undermining Yes -Exudate Amt Small -Exudate Type Yellow/Green -Wound Margin Flat & Intact -Granulation Amt None Present (0 %) -Necrosis Amt Large (67-100%) -Necrotic Tissue Type Adherent Slough -Structure Exposed N/A -Texture (Emily-wound Skin Appearance) Scarring -Moisture (Emily-wound Skin Appearance Dry/Scaly ) -Color (Emily-wound Skin Appearance) No Abnormality -Temperature (Emily-wound Skin No Abnormality Appearance) (Pt Warm) -Tenderness on Palpation (Emily-wound Yes Skin Appearance) -Ulcer Cleansing Wound Cleanser -Foul Odor after Cleansing No -Anesthetic Used 4% Lidocaine Solution WC - Nurse 2 - General Ulcer CM Notes Start: 01/26/20 15:56 Freq: Status: Active Protocol: Activity Type Activity Date Activity User E-Sign Co-Sign Detail Recorded Client Recorded Date Recorded By Document 02/09/20 08:29 JF [id number] 02/09/20 08:31 GAGE 02/09/20 08:29 Wound Center Nurse 2 [Procedure/Treatment] 4-Left Medial Posterior Heel -Time 08:29 -Correct Patient Yes -Correct Side, Site, Position Yes -Correct Procedure Yes -Procedure Performed Yes -Type of Procedure Debridement -Clinical Debridement Subcutaneous -Post Debridement Size (cm) - Length 1.8 -Post Debridement Size (cm) - Width 1.9 -Post Debridement Size (cm) - Depth 0.5 -Total Square Cm 3.42 -Wound/Ulcer Outcome Not Healed -Ulcer Cleansing Rinsed/ Irrigated with Saline -Foul Odor after Cleansing No -Bioengineered Tissue No -Bleeding Controlled with Pressure -Offloading Yes -Type of Offloading Knee Walker -Treatment Response Procedure Tolerated Well 3-left posterior heel -Time 08:30 -Correct Patient Yes -Correct Side, Site, Position Yes -Correct Procedure Yes -Procedure Performed Yes -Type of Procedure Debridement -Clinical Debridement Subcutaneous -Post Debridement Size (cm) - Length 0.3 -Post Debridement Size (cm) - Width 0.2 -Post Debridement Size (cm) - Depth 0.2 -Total Square Cm 0.06 -Wound/Ulcer Outcome Not Healed -Ulcer Cleansing Rinsed/ Irrigated with Saline -Foul Odor after Cleansing No -Bioengineered Tissue No -Bleeding Controlled with Pressure -Offloading No -Treatment Response Procedure Tolerated Well [See Physician Procedure note for Specifics] Pain Scale: 0-10 Numeric [Pain] -Is Patient Pain Free? Yes Musculoskeletal: Muscle Wasting, - - Compartments soft Psych/Mental Status: Normal Affect, Appropriate Debridement Note Post-Debridement Measurements/Treatment WC - Nurse 2 - General Ulcer CM Notes Start: 01/26/20 15:56 Freq: Status: Active Protocol: Activity Type Activity Date Activity User E-Sign Co-Sign Detail Recorded Client Recorded Date Recorded By Document 01/26/20 16:06 [id number] 01/26/20 16:08 Document 02/02/20 09:11 PL [id number] 02/02/20 09:12 PL Document 02/09/20 08:29 [id number] 02/09/20 08:31 01/26/20 02/02/20 02/09/20 16:06 09:11 08:29 Wound Center Nurse 2 4-Left Medial Posterior Heel -Time 16:07 08:28 08:29 -Correct Patient Yes Yes Yes -Correct Side, Site, Position Yes Yes Yes -Correct Procedure Yes Yes Yes -Procedure Performed Yes Yes Yes -Type of Procedure Debridement Debridement Debridement -Clinical Debridement Subcutaneous Subcutaneous Subcutaneous -Post Debridement Size (cm) - Length 1.3 2.0 1.8 -Post Debridement Size (cm) - Width 1.3 1.6 1.9 -Post Debridement Size (cm) - Depth 0.5 0.7 0.5 -Total Square Cm 1.69 3.20 3.42 -Wound/Ulcer Outcome Not Healed Not Healed Not Healed -Ulcer Cleansing Rinsed/ Rinsed/ Rinsed/ Irrigated with Irrigated with Irrigated with Saline Saline Saline -Foul Odor after Cleansing No No No -Bioengineered Tissue No No -Bleeding Controlled with Pressure Pressure Pressure -Offloading Yes Yes -Type of Offloading Knee Walker Knee Walker -Treatment Response Procedure Procedure Not Procedure Tolerated Well Tolerated Well Tolerated Well 3-left posterior heel -Time 16:07 08:28 08:30 -Correct Patient Yes Yes Yes -Correct Side, Site, Position Yes Yes Yes -Correct Procedure Yes Yes Yes -Procedure Performed Yes Yes -Type of Procedure Debridement Debridement Debridement -Clinical Debridement Subcutaneous Subcutaneous Subcutaneous -Post Debridement Size (cm) - Length 1.8 1.1 0.3 -Post Debridement Size (cm) - Width 1.6 1.8 0.2 -Post Debridement Size (cm) - Depth 0.8 1.0 0.2 -Total Square Cm 2.88 1.98 0.06 -Wound/Ulcer Outcome Not Healed Not Healed Not Healed -Ulcer Cleansing Rinsed/ Rinsed/ Rinsed/ Irrigated with Irrigated with Irrigated with Saline Saline Saline -Foul Odor after Cleansing No No No -Bioengineered Tissue No No -Bleeding Controlled with Pressure Pressure Pressure -Offloading Yes No -Type of Offloading Knee Walker -Treatment Response Procedure Procedure Procedure Tolerated Well Tolerated Well Tolerated Well Pain Scale: 0-10 Numeric Is Patient Pain Free? Yes Yes Yes Wound debrided: plantar heel Laterality: Left Wound Grade/Stage: grade 3 Type of Debridement: Excisional debridement Anesthesia Used: 5% Lidocaine Gel Depth: in the subcutaneous layer Percentage of wound debrided: 100 Instrument Used: #15 blade Tissue Removed: fibrous, devitalized subcutaenous, biofilm, slough Severity: Fat Layer Exposed Amount of bleeding with debridement: Mild Bleeding Controlled with: Pressure Patient tolerated procedure well - Additional Wound Wound debrided: medial heel Laterality: Left Wound Grade/Stage: grade 1 Type of Debridement: Excisional debridement Anesthesia Used: 5% Lidocaine Gel Depth: in the subcutaneous layer Percentage of wound debrided: 100 Instrument Used: #15 blade Tissue Removed: fibrous, devitalized subcutaenous, biofilm, slough Severity: Fat Layer Exposed Amount of bleeding with debridement: Mild Bleeding Controlled with: Pressure Patient tolerated procedure: Patient tolerated procedure well Assessment/Plan Assessment: Left heel ulcer previous grade 3 ulcer status with osteomyelitis that has stabilized and looks clinically stable but has newer deeper probing to bone today. ulcer medial left heel. Peripheral vascular disease with recent intervention performed. Diabetes with neuropathy. Malnutrition. Other comorbidities. Walking difficulty. Delayed healing Plan: This patient was examined and evaluated today. Subcutaneous excisional debridement was performed as noted in the clinical panel. To continue washing his foot with [employer] Cherelle-Hex soap. It is imperative that he keep pressure off of this site. He has hired somebody to help with his yard work which is great. He was advised to avoid wearing closed shoes and he must not participate in the types of yardwork that he has been performing. This is compromising his limb salvage case. His labs were reviewed and he did not demonstrate leukocytosis. He does have elevated C-reactive protein and an ESR of 66. His cultures demonstrate corynebacterium and MSSA is consistent with skin minerva. His C. difficile history is also noted. This will be monitored very close. I would like to update an x-ray of his hindfoot to evaluate for any new osseous destruction. He does have a prior diagnosis of osteomyelitis that was previously treated surgically and medically with IV antibiotics. He is concerned about going to the hospital during to get x-rays and I offered that he can have this done at the foot and ankle center. He was given an order last week and he still did not get this. He will try to get this x-ray done by next week. He understands if there is continued deterioration or any evidence of acute on chronic osteomyelitis and infectious disease referral antibiotics will be needed again. It is okay to continue with the Aquacel Ag to the plantar and medial ulcer site which appears to be doing well. I recommend he continues probiotic use. He relates he is not been doing this and he has not plan to use probiotics. The purpose and benefits of doing so were reviewed with him. He was advised to continue knee roller use at home to aid with compliance. He certainly has many comorbidities and this makes him higher risk for infection and delayed healing. It is noted his noninvasive vascular studies were abnormal again and he has had previous lower extremity ulcers with significant delayed healing. He was advised to follow-up with Dr. Beck, vascular surgeon, as scheduled and advised. He has had prior intervention already. We also discussed the treatment option of hyperbaric oxygen therapy because he does have a grade 3 ulcer and prior diagnosis of osteomyelitis. He is not able to come to the wound care center on a daily basis and is not ready to commit to this process. The indications, planned application, anticipated healing time management and benefits and complications were discussed. We also discussed the treatment option of below-knee amputation today because she is very fatigued by having to travel to the wound care center and he is having significant delays in healing. He is not interested in considering this option at this time. I answered his questions. He is on a palliative care program however with his current status changes being monitored, I recommend he returns in 1 week. 2020 macra entry-. Reviewed today: He denies falling within the past year. His medication allergy profile has been reconciled. Reviewed August 18, 2019: He is having a current smoking status and cessation intervention was advised. His blood pressure is 163/94 which is elevated. I recommend he follows up with his primary care physician due to associated risk factors. He is advised to maintain appropriate activity and diet as well. He does have an advanced care plan on file. His pneumococcal influenza immunization status was also reviewed.
--- NOTE | 2020-02-16 | BON_PTH ---
PATIENT: AIDA PROCTOR LOC: U#:[id number] AGE/SX: 74/M ROOM: RE02/16/[address]: Dr. Rebecca Cifuentes DPM : 1945 BED: DIS: 02/25/2020 SPEC #: [id number] RECD: 02/16/20 10:34 STATUS: HEATHER PROSPER #: [id number] MARI: 02/16/20 00:[address]: Rebecca Cifuentes DEPT: SURGICAL PATHOLOGY RECD BY: Josiah Lam ENTERED: 02/16/20 10:35 SP TYPE: Bone OTHR DR: Dr. Marcellus Moore MD Tissues: Bone of foot, NOS Procedures: Decalcification bone/plaque Surgery Specimen Level IV HEADER OPERATION: Bone biopsy left foot PRE-OP DIAGNOSIS: Nonhealing diabetic ulcer left heel; osteomyelitis TISSUE SUBMITTED: Bone biopsy left heel (calcaneus) MICROSCOPIC DIAGNOSIS Soft tissue and bone of left heel, biopsy: Soft tissue with granulation. Bone with reactive change and focal acute osteomyelitis. AM:deirdre 02/21/20 MICROSCOPIC DESCRIPTION Slides are reviewed. GROSS DESCRIPTION Received in fixative is one container labeled with the patient's name and designated biopsy left heel. The specimen consists of four variable sized pieces of bone that in aggregate measure 2 x 2 x 0.4 cm. The entire specimen is submitted in one cassette after decalcification. / SJ:deirdre 02/16/20 TC:2 CPT: 98180, 95442
[2020-02-16 08:03] VITALS: BP 132/72; PULSE 83; RESP 18; TEMP 36.3; BMI 27.3
--- NOTE | 2020-02-16 09:53 | PN.PCM_ITS ---
(1) Chronic ulcer of left foot with fat layer exposed Status: Chronic Code(s): L97.522 - Non-pressure chronic ulcer of other part of left foot with fat layer exposed (2) PVD (peripheral vascular disease) Status: Chronic Code(s): I73.9 - Peripheral vascular disease, unspecified (3) Type 2 diabetes mellitus with diabetic polyneuropathy Status: Chronic Code(s): E11.42 - Type 2 diabetes mellitus with diabetic polyneuropathy (4) Delayed wound healing Status: Chronic Code(s): T14.8XXD - Other injury of unspecified body region, subsequent encounter (5) Left foot infection Status: Resolved Code(s): L08.9 - Local infection of the skin and subcutaneous tissue, unspecified (6) Osteomyelitis Status: Suspected Qualifiers: Laterality: left Code(s): M86.9 - Osteomyelitis, unspecified Type of Wound Date of Service: 02/16/20 Chief Complaint: Left heel ulcer History of Wound: This 74-year-old male with multiple comorbidities was seen today for left plantar heel ulcer. He is also seen today for medial heel ulcer and plantar foot ulcer with decreased drainage and swelling. He obtained his foot x-rays advised last week [facility]. I previously called him with results and he is ready to proceed forward with a more aggressive debridement this morning. Progress of Wound: Stable and improving medial heel. Plantar heel now probes to bone - Physical Exam Vital Signs Temp Pulse Resp BP 97.3 F L 83 18 132/72 H 02/16/20 08:03 02/16/20 08:03 02/16/20 08:03 02/16/20 08:03 General: Alert, Oriented x3, Cooperative, No apparent distress Extremities: No cyanosis, Capillary Refill Less than 3 Seconds, No Calf Tenderness, Diminished Peripheral Pulses, Edema - Mild Skin: Ulcer/ Wound - Bone exposed plantar ulcer site is firm upon removal with additional fibrous tissue. There is no erythema, string, odor, necrosis or eschar. Wound Measurements and Assessment WC - Nurse 1 - General Ulcer Measurement Start: 01/26/20 15:56 Freq: Status: Active Protocol: Activity Type Activity Date Activity User E-Sign Co-Sign Detail Recorded Client Recorded Date Recorded By Document 02/16/20 08:03 DL [id number] 02/16/20 08:11 DL 02/16/20 08:03 Wound Center Nurse 1 [Ulcer Assessment] 4-Left Medial Posterior Heel -Current Size (cm) - Length 0.4 -Current Size (cm) - Width 0.3 -Current Size (cm) - Depth 0.5 -Total Square Cm 0.12 -Photo Taken No -Exudate Amt Small -Exudate Type Yellow/Green -Wound Margin Distinct, Outline Attached -Granulation Amt Small (1-33%) -Granulation Quality Red -Necrosis Amt None Present (0 %) -Structure Exposed N/A -Texture (Emily-wound Skin Appearance) Scarring -Moisture (Emily-wound Skin Appearance No Abnormality ) -Color (Emily-wound Skin Appearance) No Abnormality -Temperature (Emily-wound Skin No Abnormality Appearance) (Pt Warm) -Tenderness on Palpation (Emily-wound No Skin Appearance) -Ulcer Cleansing Wound Cleanser -Foul Odor after Cleansing No -Anesthetic Used 4% Lidocaine Solution 3-left posterior heel -Current Size (cm) - Length 1.6 -Current Size (cm) - Width 1.5 -Current Size (cm) - Depth 0.9 -Total Square Cm 2.40 -Photo Taken No -Exudate Amt Medium -Exudate Type Serosanguineous -Wound Margin Thickened & Rolled Under -Granulation Amt Medium (34-66%) -Granulation Quality Botines -Necrosis Amt Medium (34-66%) -Necrotic Tissue Type Adherent Slough -Structure Exposed Bone -Texture (Emily-wound Skin Appearance) Callus,Scarring -Moisture (Emily-wound Skin Appearance Maceration ) -Color (Emily-wound Skin Appearance) No Abnormality -Temperature (Emily-wound Skin No Abnormality Appearance) (Pt Warm) -Tenderness on Palpation (Emily-wound No Skin Appearance) -Ulcer Cleansing Wound Cleanser -Foul Odor after Cleansing No -Anesthetic Used 4% Lidocaine Solution WC - Nurse 2 - General Ulcer CM Notes Start: 01/26/20 15:56 Freq: Status: Active Protocol: Activity Type Activity Date Activity User E-Sign Co-Sign Detail Recorded Client Recorded Date Recorded By Document 02/16/20 09:12 GAGE [id number] 02/16/20 09:13 GAGE 02/16/20 09:12 Wound Center Nurse 2 [Procedure/Treatment] 4-Left Medial Posterior Heel -Time 09:12 -Correct Patient Yes -Correct Side, Site, Position Yes -Correct Procedure Yes -Procedure Performed Yes -Type of Procedure Debridement -Clinical Debridement Subcutaneous -Post Debridement Size (cm) - Length 0.4 -Post Debridement Size (cm) - Width 0.4 -Post Debridement Size (cm) - Depth 0.5 -Total Square (cm) 0.16 -Wound/Ulcer Outcome Not Healed -Ulcer Cleansing Rinsed/ Irrigated with Saline -Foul Odor after Cleansing No -Bioengineered Tissue No -Bleeding Controlled with Pressure -Offloading Yes -Type of Offloading Knee Walker -Treatment Response Procedure Tolerated Well 3-left posterior heel -Time 09:13 -Correct Patient Yes -Correct Side, Site, Position Yes -Correct Procedure Yes -Procedure Performed Yes -Type of Procedure Debridement -Clinical Debridement Bone -Post Debridement Size (cm) - Length 1.6 -Post Debridement Size (cm) - Width 1.6 -Post Debridement Size (cm) - Depth 1.5 -Total Square (cm) 2.56 -Wound/Ulcer Outcome Not Healed -Ulcer Cleansing Rinsed/ Irrigated with Saline -Foul Odor after Cleansing No -Bioengineered Tissue No -Bleeding Controlled with Pressure -Offloading Yes -Type of Offloading Knee Walker -Treatment Response Procedure Tolerated Well [See Physician Procedure note for Specifics] Pain Scale: 0-10 Numeric [Pain] -Is Patient Pain Free? Yes Musculoskeletal: No Tenderness to Palpation of Joints or Extremities, Muscle Wasting Neurological: - - Lack of epicritic sensation light touch is consistent with neuropathy status Psych/Mental Status: Normal Affect, Appropriate Debridement Note Post-Debridement Measurements/Treatment WC - Nurse 2 - General Ulcer CM Notes Start: 01/26/20 15:56 Freq: Status: Active Protocol: Activity Type Activity Date Activity User E-Sign Co-Sign Detail Recorded Client Recorded Date Recorded By Document 01/26/20 16:06 JF [id number] 01/26/20 16:08 JF Document 02/02/20 09:11 PL [id number] 02/02/20 09:12 PL Document 02/09/20 08:29 JF [id number] 02/09/20 08:31 JF Document 02/16/20 09:12 JF [id number] 02/16/20 09:13 JF 01/26/20 02/02/20 02/09/20 16:06 09:11 08:29 Wound Center Nurse 2 4-Left Medial Posterior Heel -Time 16:07 08:28 08:29 -Correct Patient Yes Yes Yes -Correct Side, Site, Position Yes Yes Yes -Correct Procedure Yes Yes Yes -Procedure Performed Yes Yes Yes -Type of Procedure Debridement Debridement Debridement -Clinical Debridement Subcutaneous Subcutaneous Subcutaneous -Post Debridement Size (cm) - Length 1.3 2.0 1.8 -Post Debridement Size (cm) - Width 1.3 1.6 1.9 -Post Debridement Size (cm) - Depth 0.5 0.7 0.5 -Total Square (cm) 1.69 3.20 3.42 -Wound/Ulcer Outcome Not Healed Not Healed Not Healed -Ulcer Cleansing Rinsed/ Rinsed/ Rinsed/ Irrigated with Irrigated with Irrigated with Saline Saline Saline -Foul Odor after Cleansing No No No -Bioengineered Tissue No No -Bleeding Controlled with Pressure Pressure Pressure -Offloading Yes Yes -Type of Offloading Knee Walker Knee Walker -Treatment Response Procedure Procedure Not Procedure Tolerated Well Tolerated Well Tolerated Well 3-left posterior heel -Time 16: 08:28 08:30 -Correct Patient Yes Yes Yes -Correct Side, Site, Position Yes Yes Yes -Correct Procedure Yes Yes Yes -Procedure Performed Yes Yes -Type of Procedure Debridement Debridement Debridement -Clinical Debridement Subcutaneous Subcutaneous Subcutaneous -Post Debridement Size (cm) - Length 1.8 1.1 0.3 -Post Debridement Size (cm) - Width 1.6 1.8 0.2 -Post Debridement Size (cm) - Depth 0.8 1.0 0.2 -Total Square (cm) 2.88 1.98 0.06 -Wound/Ulcer Outcome Not Healed Not Healed Not Healed -Ulcer Cleansing Rinsed/ Rinsed/ Rinsed/ Irrigated with Irrigated with Irrigated with Saline Saline Saline -Foul Odor after Cleansing No No No -Bioengineered Tissue No No -Bleeding Controlled with Pressure Pressure Pressure -Offloading Yes No -Type of Offloading Knee Walker -Treatment Response Procedure Procedure Procedure Tolerated Well Tolerated Well Tolerated Well Pain Scale: 0-10 Numeric Is Patient Pain Free? Yes Yes Yes 02/16/20 09:12 Wound Center Nurse 2 4-Left Medial Posterior Heel -Time 09:12 -Correct Patient Yes -Correct Side, Site, Position Yes -Correct Procedure Yes -Procedure Performed Yes -Type of Procedure Debridement -Clinical Debridement Subcutaneous -Post Debridement Size (cm) - Length 0.4 -Post Debridement Size (cm) - Width 0.4 -Post Debridement Size (cm) - Depth 0.5 -Total Square (cm) 0.16 -Wound/Ulcer Outcome Not Healed -Ulcer Cleansing Rinsed/ Irrigated with Saline -Foul Odor after Cleansing No -Bioengineered Tissue No -Bleeding Controlled with Pressure -Offloading Yes -Type of Offloading Knee Walker -Treatment Response Procedure Tolerated Well 3-left posterior heel -Time 09:13 -Correct Patient Yes -Correct Side, Site, Position Yes -Correct Procedure Yes -Procedure Performed Yes -Type of Procedure Debridement -Clinical Debridement Bone -Post Debridement Size (cm) - Length 1.6 -Post Debridement Size (cm) - Width 1.6 -Post Debridement Size (cm) - Depth 1.5 -Total Square (cm) 2.56 -Wound/Ulcer Outcome Not Healed -Ulcer Cleansing Rinsed/ Irrigated with Saline -Foul Odor after Cleansing No -Bioengineered Tissue No -Bleeding Controlled with Pressure -Offloading Yes -Type of Offloading Knee Walker -Treatment Response Procedure Tolerated Well Pain Scale: 0-10 Numeric Is Patient Pain Free? Yes Wound debrided: plantar heel Laterality: Left Wound Grade/Stage: grade 3 Type of Debridement: Excisional debridement Anesthesia Used: 5% Lidocaine Gel Depth: in the subcutaneous layer Percentage of wound debrided: 100 Instrument Used: #15 blade Tissue Removed: fibrous, devitalized subcutaneous, biofilm, slough Severity: Fat Layer Exposed Amount of bleeding with debridement: Mild Bleeding Controlled with: Pressure Patient tolerated procedure well Assessment/Plan Assessment: Left heel ulcer previous grade 3 ulcer status with osteomyelitis that has stabilized and looks clinically stable but has newer deeper probing to bone today. ulcer medial left heel. Peripheral vascular disease with recent intervention performed. Diabetes with neuropathy. Malnutrition. Other comorbidities. Walking difficulty. Delayed healing Plan: This patient was examined and evaluated today. I also attempted to call his daughter Sarah with an update as request at [phone] but the line was disconnected. Subcutaneous excisional debridement was performed as noted in the clinical panel. To continue washing his foot with [employer] Cherelle-Hex soap. It is imperative that he keep pressure off of this site. He has hired somebody to help with his yard work which is great. He was advised to avoid wearing closed shoes and he must not participate in the types of yardwork that he has been performing. This is compromising his limb salvage case. His labs were reviewed and he did not demonstrate leukocytosis. He does have elevated C-reactive protein and an ESR of 66. His cultures demonstrate corynebacterium and MSSA is consistent with skin minerva. His C. difficile history is also noted. This will be monitored very close. I would like to update an x-ray of his hindfoot to evaluate for any new osseous destruction. He does have a prior diagnosis of osteomyelitis that was previously treated surgically and medically with IV antibiotics. He is concerned about going to the hospital during to get x-rays and I offered that he can have this done at the foot and ankle center. He completed this last week and I have called him to review the results. He has a very large spur with proliferative calcification. This is consistent with biomechanical changes and potential osteomyelitis course. Is noted she is previously had osteomyelitis in the same location and was treated medically for this. During the plantar heel debridement bone was excised with a rongeur. Pressure was applied to maintain hemostasis and was controlled prior to leaving the clinic. This excised bone was sent to both microbiology and pathology. I recommend that he sees infectious disease next week and this follow-up will be coordinated. I also offered him an operating room debridement to aggressively excise this heel spur he does not want to proceed forward with this at this time. This may be necessary to get this prominent bone off of the friable skin that has been trying to heal. It is okay to continue with the Aquacel Ag to the plantar and medial ulcer site which appears to be doing well. I recommend he continues probiotic use. He relates he is not been doing this and he has not plan to use probiotics. The purpose and benefits of doing so were reviewed with him. He was advised to continue knee roller use at home to aid with compliance. He certainly has many comorbidities and this makes him higher risk for infection and delayed healing. It is noted his noninvasive vascular studies were abnormal again and he has had previous lower extremity ulcers with significant delayed healing. He was advised to follow-up with Dr. Beck, vascular surgeon, as scheduled and advised. He has had prior intervention already. We also discussed the treatment option of hyperbaric oxygen therapy because he does have a grade 3 ulcer and prior diagnosis of osteomyelitis. He is not able to come to the wound care center on a daily basis and is not ready to commit to this process. The indications, planned application, anticipated healing time management and benefits and complications were discussed. We also discussed the treatment option of below-knee amputation today because she is very fatigued by having to travel to the wound care center and he is having significant delays in healing. He is not interested in considering this option at this time. I answered his questions. He is on a palliative care program however with his current status changes being monitored, I recommend he returns in 1 week. 2020 [facility] entry-. Reviewed today: He denies falling within the past year. His medication allergy profile has been reconciled. Reviewed August 18, 2019: He is having a current smoking status and cessation intervention was advised. His blood pressure is 163/94 which is elevated. I recommend he follows up with his primary care physician due to associated risk factors. He is advised to maintain appropriate activity and diet as well. He does have an advanced care plan on file. His pneumococcal influenza immunization status was also reviewed.
[2020-02-23 14:06] VITALS: BP 115/65; PULSE 91; RESP 16; TEMP 36.3; BMI 27.3
--- NOTE | 2020-02-23 14:25 | PCM.PN.ID ---
Subjective: Feeling ok, heel is sore, no fever, no redness going up leg. No n/v/d. - Physical Exam Vitals/I&O's: Vital Signs Temp Pulse Resp BP 97.3 F L 91 16 115/65 02/23/20 14:06 02/23/20 14:06 02/23/20 14:06 02/23/20 14:06 Oxygen Delivery Method Room Air Body Mass Index (BMI) 27.3 General: Alert, Cooperative, No apparent distress Lungs: Clear to auscultation, Normal air movement Cardiovascular: Regular rate, Regular Rhythm Abdomen: Soft, Non Tender Skin: Ulcer/ Wound - L heel, tunneling wound, dry Microbiology Past 72 Hours 02/16/20 07:20 Wound - Left Foot Gram Stain - Final 02/16/20 07:20 Wound - Left Foot Wound Culture - Final Staphylococcus aureus Corynebacterium striatum 02/16/20 07:20 Wound - Left Foot Anaerobic Culture - Final No anaerobic bacteria isolated. Medical Necessity - Tobacco Use Smoking Status: Former smoker Route of nutrition/ use of supplements: [] Nutritional Intake: [] IV Site: [] Byrd Catheter: [] - Assessment/Plan Antibiotics: [] Assessment/Plan: [] L heel osteo - path (+) 02/15 for osteo, cx (+) for mssa and corynebacteria. Plan is for 6 weeks po doxy and greggf. Has h/o cdiff, he is to monitor for diarrhea, abd pain. Return to clinic in 2 weeks. D/w Dr. Cifuentes, thank you.
--- NOTE | 2020-02-23 16:22 | PN.PCM_ITS ---
(1) PVD (peripheral vascular disease) Status: Chronic Code(s): I73.9 - Peripheral vascular disease, unspecified (2) Type 2 diabetes mellitus with diabetic polyneuropathy Status: Chronic Code(s): E11.42 - Type 2 diabetes mellitus with diabetic polyneuropathy (3) Delayed wound healing Status: Chronic Code(s): T14.8XXD - Other injury of unspecified body region, subsequent encounter (4) Osteomyelitis Status: Chronic Qualifiers: Laterality: left Code(s): M86.9 - Osteomyelitis, unspecified (5) Ulcer of left foot with bone involvement without evidence of necrosis Status: Chronic Code(s): L97.526 - Non-pressure chronic ulcer of other part of left foot with bone involvement without evidence of necrosis (6) Chronic ulcer of left foot with fat layer exposed Status: Chronic Code(s): L97.522 - Non-pressure chronic ulcer of other part of left foot with fat layer exposed Type of Wound Date of Service: 02/23/20 Chief Complaint: Left heel ulcers History of Wound: This 74-year-old male with multiple comorbidities was seen today for left plantar heel ulcer. He is also seen today for medial heel ulcer and plantar foot ulcer with decreased drainage and swelling. He had bone debridement performed last week that was sent as a bone biopsy and would like to review the results. Progress of Wound: Stable and improving medial heel. Plantar heel now probes to bone - Physical Exam Vital Signs Temp Pulse Resp BP 97.3 F L 91 16 115/65 02/23/20 14:06 02/23/20 14:06 02/23/20 14:06 02/23/20 14:06 General: Alert, Oriented x3, Cooperative, No apparent distress HEENT: Atraumatic Extremities: No cyanosis, Capillary Refill Less than 3 Seconds, No Calf Tenderness, Diminished Peripheral Pulses, Edema Skin: Ulcer/ Wound - no purulence, no erythema , no streaking, no odor, no infection. exposed boneplantar heel removed again today and this is firm. medial heel with subcutaneous granular tissue only Wound Measurements and Assessment WC - Nurse 1 - General Ulcer Measurement Start: 01/26/20 15:56 Freq: Status: Active Protocol: Activity Type Activity Date Activity User E-Sign Co-Sign Detail Recorded Client Recorded Date Recorded By Document 02/23/20 14:06 MW [id number] 02/23/20 14:18 MW 02/23/20 14:06 Wound Center Nurse 1 [Ulcer Assessment] 4-Left Medial Posterior Heel -Combined with other wound No -Current Size (cm) - Length 0.8 -Current Size (cm) - Width 0.5 -Current Size (cm) - Depth 0.1 -Total Square Cm 0.40 -Photo Taken No -Epithelialization None Present -Tunneling No -Undermining/Tunneling No -Circular Undermining No -Exudate Amt Small -Exudate Type Serosanguineous -Wound Margin Flat & Intact -Granulation Amt Medium (34-66%) -Granulation Quality [place] -Slough/Fibrin Yes -Necrosis Amt Small (1-33%) -Necrotic Tissue Type Adherent Slough -Structure Exposed N/A -Texture (Emily-wound Skin Appearance) Assessed, Localized Edema -Moisture (Emily-wound Skin Appearance Assessed,Dry/ ) Scaly -Color (Emily-wound Skin Appearance) No Abnormality, Assessed, Ecchymosis -Tenderness on Palpation (Emily-wound Yes Skin Appearance) -Ulcer Cleansing soap and water -Foul Odor after Cleansing No -Anesthetic Used 4% Lidocaine Solution 3-left posterior heel -Combined with other wound No -Current Size (cm) - Length 2.0 -Current Size (cm) - Width 2.0 -Current Size (cm) - Depth 1.3 -Total Square Cm 4.00 -Photo Taken No -Epithelialization None Present -Tunneling No -Undermining/Tunneling No -Circular Undermining No -Exudate Amt Medium -Exudate Type Serosanguineous -Wound Margin Distinct, Outline Attached -Granulation Amt Medium (34-66%) -Granulation Quality [place] -Slough/Fibrin Yes -Necrosis Amt Small (1-33%) -Necrotic Tissue Type Adherent Slough -Structure Exposed N/A -Texture (Emily-wound Skin Appearance) Assessed, Localized Edema -Moisture (Emily-wound Skin Appearance Assessed, ) Maceration -Color (Emily-wound Skin Appearance) No Abnormality, Assessed -Temperature (Emily-wound Skin No Abnormality Appearance) (Pt Warm) -Tenderness on Palpation (Emily-wound No Skin Appearance) -Ulcer Cleansing soap and water -Foul Odor after Cleansing No -Anesthetic Used 5% Lidocaine Gel [Edema Assessment] -Lower Limb Edema Present No WC - Nurse 2 - General Ulcer CM Notes Start: 01/26/20 15:56 Freq: Status: Active Protocol: Activity Type Activity Date Activity User E-Sign Co-Sign Detail Recorded Client Recorded Date Recorded By Document 02/23/20 14:29 JF [id number] 02/23/20 14:32 JF 02/23/20 14:29 Wound Center Nurse 2 [Procedure/Treatment] 4-Left Medial Posterior Heel -Time 14:29 -Correct Patient Yes -Correct Side, Site, Position Yes -Correct Procedure Yes -Procedure Performed Yes -Type of Procedure Debridement -Clinical Debridement Subcutaneous -Post Debridement Size (cm) - Length 0.7 -Post Debridement Size (cm) - Width 0.6 -Post Debridement Size (cm) - Depth 0.1 -Total Square (cm) 0.42 -Wound/Ulcer Outcome Not Healed -Ulcer Cleansing Rinsed/ Irrigated with Saline -Foul Odor after Cleansing No -Bioengineered Tissue No -Bleeding Controlled with Pressure -Offloading Yes -Type of Offloading Surgical Shoe -Treatment Response Procedure Tolerated Well 3-left posterior heel -Time 14:30 -Correct Patient Yes -Correct Side, Site, Position Yes -Correct Procedure Yes -Procedure Performed Yes -Type of Procedure Debridement -Clinical Debridement Bone -Post Debridement Size (cm) - Length 2.1 -Post Debridement Size (cm) - Width 2.1 -Post Debridement Size (cm) - Depth 1.8 -Total Square (cm) 4.41 -Wound/Ulcer Outcome Not Healed -Ulcer Cleansing Rinsed/ Irrigated with Saline -Foul Odor after Cleansing No -Bioengineered Tissue No -Bleeding Controlled with Pressure -Offloading Yes -Type of Offloading Knee Walker -Treatment Response Procedure Tolerated Well [See Physician Procedure note for Specifics] Pain Scale: 0-10 Numeric [Pain] -Is Patient Pain Free? Yes Musculoskeletal: Muscle Wasting Neurological: - - lack of epicritic sensation via light touch consistent with neuropathy status Psych/Mental Status: Normal Affect, Appropriate Debridement Note Post-Debridement Measurements/Treatment - Nurse 2 - General Ulcer CM Notes Start: 01/26/20 15:56 Freq: Status: Active Protocol: Activity Type Activity Date Activity User E-Sign Co-Sign Detail Recorded Client Recorded Date Recorded By Document 01/26/20 16:06 GAGE [id number] 01/26/20 16:08 JF Document 02/02/20 09:11 PL [id number] 02/02/20 09:12 PL Document 02/09/20 08:29 JF [id number] 02/09/20 08:31 JF Document 02/16/20 09:12 JF [id number] 02/16/20 09:13 JF Document 02/23/20 14:29 JF [id number] 02/23/20 14:32 JF 01/26/20 02/02/20 02/09/20 16:06 09:11 08:29 Wound Center Nurse 2 4-Left Medial Posterior Heel -Time 16:07 08:28 08:29 -Correct Patient Yes Yes Yes -Correct Side, Site, Position Yes Yes Yes -Correct Procedure Yes Yes Yes -Procedure Performed Yes Yes Yes -Type of Procedure Debridement Debridement Debridement -Clinical Debridement Subcutaneous Subcutaneous Subcutaneous -Post Debridement Size (cm) - Length 1.3 2.0 1.8 -Post Debridement Size (cm) - Width 1.3 1.6 1.9 -Post Debridement Size (cm) - Depth 0.5 0.7 0.5 -Total Square (cm) 1.69 3.20 3.42 -Wound/Ulcer Outcome Not Healed Not Healed Not Healed -Ulcer Cleansing Rinsed/ Rinsed/ Rinsed/ Irrigated with Irrigated with Irrigated with Saline Saline Saline -Foul Odor after Cleansing No No No -Bioengineered Tissue No No -Bleeding Controlled with Pressure Pressure Pressure -Offloading Yes Yes -Type of Offloading Knee Walker Knee Walker -Treatment Response Procedure Procedure Not Procedure Tolerated Well Tolerated Well Tolerated Well 3-left posterior heel -Time 16:07 08:28 08:30 -Correct Patient Yes Yes Yes -Correct Side, Site, Position Yes Yes Yes -Correct Procedure Yes Yes Yes -Procedure Performed Yes Yes -Type of Procedure Debridement Debridement Debridement -Clinical Debridement Subcutaneous Subcutaneous Subcutaneous -Post Debridement Size (cm) - Length 1.8 1.1 0.3 -Post Debridement Size (cm) - Width 1.6 1.8 0.2 -Post Debridement Size (cm) - Depth 0.8 1.0 0.2 -Total Square (cm) 2.88 1.98 0.06 -Wound/Ulcer Outcome Not Healed Not Healed Not Healed -Ulcer Cleansing Rinsed/ Rinsed/ Rinsed/ Irrigated with Irrigated with Irrigated with Saline Saline Saline -Foul Odor after Cleansing No No No -Bioengineered Tissue No No -Bleeding Controlled with Pressure Pressure Pressure -Offloading Yes No -Type of Offloading Knee Walker -Treatment Response Procedure Procedure Procedure Tolerated Well Tolerated Well Tolerated Well Pain Scale: 0-10 Numeric Is Patient Pain Free? Yes Yes Yes 02/16/20 02/23/20 09:12 14:29 Wound Center Nurse 2 4-Left Medial Posterior Heel -Time 09:12 14:29 -Correct Patient Yes Yes -Correct Side, Site, Position Yes Yes -Correct Procedure Yes Yes -Procedure Performed Yes Yes -Type of Procedure Debridement Debridement -Clinical Debridement Subcutaneous Subcutaneous -Post Debridement Size (cm) - Length 0.4 0.7 -Post Debridement Size (cm) - Width 0.4 0.6 -Post Debridement Size (cm) - Depth 0.5 0.1 -Total Square (cm) 0.16 0.42 -Wound/Ulcer Outcome Not Healed Not Healed -Ulcer Cleansing Rinsed/ Rinsed/ Irrigated with Irrigated with Saline Saline -Foul Odor after Cleansing No No -Bioengineered Tissue No No -Bleeding Controlled with Pressure Pressure -Offloading Yes Yes -Type of Offloading Knee Walker Surgical Shoe -Treatment Response Procedure Procedure Tolerated Well Tolerated Well 3-left posterior heel -Time 09:13 14:30 -Correct Patient Yes Yes -Correct Side, Site, Position Yes Yes -Correct Procedure Yes Yes -Procedure Performed Yes Yes -Type of Procedure Debridement Debridement -Clinical Debridement Bone Bone -Post Debridement Size (cm) - Length 1.6 2.1 -Post Debridement Size (cm) - Width 1.6 2.1 -Post Debridement Size (cm) - Depth 1.5 1.8 -Total Square (cm) 2.56 4.41 -Wound/Ulcer Outcome Not Healed Not Healed -Ulcer Cleansing Rinsed/ Rinsed/ Irrigated with Irrigated with Saline Saline -Foul Odor after Cleansing No No -Bioengineered Tissue No No -Bleeding Controlled with Pressure Pressure -Offloading Yes Yes -Type of Offloading Knee Walker Knee Walker -Treatment Response Procedure Procedure Tolerated Well Tolerated Well Pain Scale: 0-10 Numeric Is Patient Pain Free? Yes Yes Wound debrided: plantar heel Laterality: Left Wound Grade/Stage: grade 3 Type of Debridement: Excisional debridement Anesthesia Used: 5% Lidocaine Gel Depth: to bone Percentage of wound debrided: 100 Instrument Used: #15 blade, - - ronguer Tissue Removed: fibrous, devitalized subcutaneous and bone, biofilm, slough Severity: Necrosis of Bone Amount of bleeding with debridement: Mild Bleeding Controlled with: Pressure Patient tolerated procedure well - Additional Wound Wound debrided: medial heel Laterality: Left Wound Grade/Stage: grade 1 Type of Debridement: Excisional debridement Anesthesia Used: 5% Lidocaine Gel Depth: in the subcutaneous layer Percentage of wound debrided: 100 Instrument Used: #15 blade Tissue Removed: fibrous, devitalized subcutaneous, biofilm, slough Severity: Fat Layer Exposed Amount of bleeding with debridement: Mild Bleeding Controlled with: Pressure Patient tolerated procedure: Patient tolerated procedure well Assessment/Plan Assessment: Left heel ulcer previous grade 3 ulcer status with osteomyelitis that has stabilized and looks clinically stable but has newer deeper probing to bone today. ulcer medial left heel. Acute on chronic osteomyelitis left heel. Peripheral vascular disease with recent intervention performed. Diabetes with neuropathy. Malnutrition. Other comorbidities. Walking difficulty. Delayed healing Plan: This patient was examined and evaluated today. Subcutaneous excisional debridement was performed as noted in the clinical panel to the medial and bone excisional debridement to the plantar ulcer site. To continue washing his foot with [employer] Cherelle-Hex soap. It is imperative that he keep pressure off of this site. His labs were reviewed and he did not demonstrate leukocytosis. He does have elevated C-reactive protein and an ESR of 66. His cultures demonstrate corynebacterium and MSSA is consistent with skin minerva. His C. difficile history is also noted. This will be monitored very close. An x-ray of his hindfoot to evaluate for any new osseous destruction was noted. He does have a prior diagnosis of osteomyelitis that was previously treated surgically and medically with IV antibiotics. He has a very large spur with proliferative calcification. This is consistent with biomechanical changes and osteomyelitis course. Is noted she is previously had osteomyelitis in the same location and was treated medically for this. During the plantar heel debridement bone was excised with a rongeur again today. Pressure was applied to maintain hemostasis and was controlled prior to leaving the clinic. This excised bone was sent to both microbiology and pathology. I recommend that he sees infectious disease today and this was performed and appreciated. Dr. Luna recommends a 6-week course of oral Duricef and doxycycline. I also offered him an operating room debridement to aggressively excise this heel spur he does not want to proceed forward with this at this time. This may be necessary to get this prominent bone off of the friable skin that has been trying to heal. It is okay to continue with the Aquacel Ag to the plantar and medial ulcer site which appears to be doing well. I recommend he continues probiotic use. He relates he is not been doing this and he has not plan to use probiotics. The purpose and benefits of doing so were reviewed with him. He was advised to continue knee roller use at home to aid with compliance. He certainly has many comorbidities and this makes him higher risk for infection and delayed healing. It is noted his noninvasive vascular studies were abnormal again and he has had previous lower extremity ulcers with significant delayed healing. He was advised to follow-up with Dr. Beck, vascular surgeon, as scheduled and advised. He has had prior intervention already. We also discussed the treatment option of hyperbaric oxygen therapy because he does have a grade 3 ulcer and prior diagnosis of osteomyelitis. He is not able to come to the wound care center on a daily basis and is not ready to commit to this pro cess. The indications, planned application, anticipated healing time management and benefits and complications were discussed. We also discussed the treatment option of below-knee amputation today because she is very fatigued by having to travel to the wound care center and he is having significant delays in healing. He is not interested in considering this option at this time. I answered his questions. He is on a palliative care program however with his current status changes being monitored, I recommend he returns in 1 week. 2020 macra entry-. Reviewed today: He denies falling within the past year. His medication allergy profile has been reconciled. Reviewed August 18, 2019: He is having a current smoking status and cessation intervention was advised. His blood pressure is 163/94 which is elevated. I recommend he follows up with his primary care physician due to associated risk factors. He is advised to maintain appropriate activity and diet as well. He does have an advanced care plan on file. His pneumococcal influenza immunization status was also reviewed.
== END 2020-02-25 23:59 ==
LOC: WC 08:00
PROVIDERS: Family Provider Family Medicine; PCP Family Medicine; Referring Provider Podiatrist; Visit Provider Podiatrist
DX: E11.621 Type 2 diabetes mellitus with foot ulcer (principal); E11.42 Type 2 diabetes mellitus with diabetic polyneuropathy; E11.51 Type 2 diabetes mellitus with diabetic peripheral angiopathy without gangrene; L97.422 Non-pressure chronic ulcer of left heel and midfoot with fat layer exposed; R26.2 Difficulty in walking, not elsewhere classified
CPT/HCPCS: 11042; 11044; 87070; 87075; 87077; 87186; 87205; 87640; 88304; 88305; 88311; 99213

== ENCOUNTER 2020-03-22 08:00 | Outpatient (RCR) | payer MEDICARE, SELFPAY ==
[2020-02-26 00:22] VITALS: BP 115/65; PULSE 91; RESP 16; TEMP 36.3
[2020-03-01 08:17] VITALS: BP 153/71; PULSE 73; RESP 20; TEMP 37.2; BMI 27.3
--- NOTE | 2020-03-01 11:54 | PN.PCM_ITS ---
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 Code(s): L97.526 - Non-pressure chronic ulcer of other part of left foot with bone involvement without evidence of necrosis (3) Type 2 diabetes mellitus with diabetic polyneuropathy Status: Chronic Code(s): E11.42 - Type 2 diabetes mellitus with diabetic polyneuropathy (4) Chronic ulcer of left foot with fat layer exposed Status: Chronic Code(s): L97.522 - Non-pressure chronic ulcer of other part of left foot with fat layer exposed (5) Delayed wound healing Status: Chronic Code(s): T14.8XXD - Other injury of unspecified body region, subsequent encounter (6) Malnutrition Status: Chronic Code(s): E46 - Unspecified protein-calorie malnutrition Type of Wound Date of Service: 03/01/20 Chief Complaint: Left heel ulcers History of Wound: This 74-year-old male with multiple comorbidities was seen today for left plantar heel ulcer. He is also seen today for medial heel ulcer and plantar foot ulcer with decreased drainage and swelling. He had bone debridement performed which demonstrated osteomyelitis. Progress of Wound: Stable and improving medial heel. Plantar heel now probes to bone - Physical Exam Vital Signs Temp Pulse Resp BP 98.9 F 73 20 H 153/71 H 03/01/20 08:17 03/01/20 08:17 03/01/20 08:17 03/01/20 08:17 General: Alert, Oriented x3, Cooperative, No apparent distress HEENT: Atraumatic Extremities: No cyanosis, Capillary Refill Less than 3 Seconds, No Calf Tenderness, Diminished Peripheral Pulses, Edema - Mild Skin: Ulcer/ Wound - No purulence, erythema, streaking, odor, infection. Cellulitis is resolving. There are no longer any bone fragments to the plantar heel ulcer site. The adjacent skin is hairless and atrophic Wound Measurements and Assessment WC - Nurse 1 - General Ulcer Measurement Start: 03/01/20 08:17 Freq: Status: Active Protocol: Activity Type Activity Date Activity User E-Sign Co-Sign Detail Recorded Client Recorded Date Recorded By Document 03/01/20 08:17 DL [id number] 03/01/20 08:25 DL 03/01/20 08:17 Wound Center Nurse 1 [Ulcer Assessment] 4-Left Medial Posterior Heel -Current Size (cm) - Length 0.2 -Current Size (cm) - Width 0.2 -Current Size (cm) - Depth 1 -Total Square Cm 0.04 -Photo Taken No -Maximum Distance #2 (cm) 0.2 -Circular Undermining Yes -Exudate Amt Small -Exudate Type Yellow/Green -Wound Margin Flat & Intact -Granulation Amt Small (1-33%) -Granulation Quality [place] -Necrosis Amt None Present (0 %) -Structure Exposed N/A -Texture (Emily-wound Skin Appearance) Scarring -Moisture (Emily-wound Skin Appearance No Abnormality ) -Color (Emily-wound Skin Appearance) Rubor -Temperature (Emily-wound Skin No Abnormality Appearance) (Pt Warm) -Tenderness on Palpation (Emily-wound No Skin Appearance) -Ulcer Cleansing Wound Cleanser -Foul Odor after Cleansing No -Anesthetic Used 4% Lidocaine Solution 3-left posterior heel -Current Size (cm) - Length 1.6 -Current Size (cm) - Width 1.7 -Current Size (cm) - Depth 1.5 -Total Square Cm 2.72 -Photo Taken No -Exudate Amt Medium -Exudate Type Serosanguineous -Wound Margin Thickened -Granulation Amt Medium (34-66%) -Granulation Quality [place]po -Necrosis Amt Medium (34-66%) -Necrotic Tissue Type Adherent Slough -Structure Exposed N/A -Texture (Emily-wound Skin Appearance) Scarring -Moisture (Emily-wound Skin Appearance Maceration ) -Color (Emily-wound Skin Appearance) Rubor -Temperature (Emily-wound Skin No Abnormality Appearance) (Pt Warm) -Tenderness on Palpation (Emily-wound No Skin Appearance) -Ulcer Cleansing Wound Cleanser -Foul Odor after Cleansing No -Anesthetic Used 4% Lidocaine Solution WC - Nurse 2 - General Ulcer CM Notes Start: 03/01/20 08:17 Freq: Status: Active Protocol: Activity Type Activity Date Activity User E-Sign Co-Sign Detail Recorded Client Recorded Date Recorded By Document 03/01/20 08:50 GAGE [id number] 03/01/20 08:52 GAGE 03/01/20 08:50 Wound Center Nurse 2 [Procedure/Treatment] 4-Left Medial Posterior Heel -Time 08:50 -Correct Patient Yes -Correct Side, Site, Position Yes -Correct Procedure Yes -Procedure Performed Yes -Type of Procedure Debridement -Clinical Debridement Subcutaneous -Post Debridement Size (cm) - Length 0.3 -Post Debridement Size (cm) - Width 0.3 -Post Debridement Size (cm) - Depth 1 -Total Square (cm) 0.09 -Wound/Ulcer Outcome Not Healed -Ulcer Cleansing Rinsed/ Irrigated with Saline -Foul Odor after Cleansing No -Bleeding Controlled with Pressure -Offloading Yes -Type of Offloading Knee Walker -Treatment Response Procedure Tolerated Well 3-left posterior heel -Time 08:51 -Correct Patient Yes -Correct Side, Site, Position Yes -Correct Procedure Yes -Procedure Performed Yes -Type of Procedure Debridement -Clinical Debridement Subcutaneous -Post Debridement Size (cm) - Length 1.7 -Post Debridement Size (cm) - Width 1.7 -Post Debridement Size (cm) - Depth 1.5 -Total Square (cm) 2.89 -Wound/Ulcer Outcome Not Healed -Ulcer Cleansing Rinsed/ Irrigated with Saline -Foul Odor after Cleansing No -Bioengineered Tissue No -Bleeding Controlled with Pressure -Offloading Yes -Type of Offloading Knee Walker -Treatment Response Procedure Tolerated Well [See Physician Procedure note for Specifics] Pain Scale: 0-10 Numeric [Pain] -Is Patient Pain Free? Yes Musculoskeletal: No Tenderness to Palpation of Joints or Extremities, Muscle Wasting Neurological: - - Lack of epicritic sensation light touch is consistent with neuropathy status Psych/Mental Status: Normal Affect, Appropriate Debridement Note Post-Debridement Measurements/Treatment WC - Nurse 2 - General Ulcer CM Notes Start: 03/01/20 08:17 Freq: Status: Active Protocol: Activity Type Activity Date Activity User E-Sign Co-Sign Detail Recorded Client Recorded Date Recorded By Document 03/01/20 08:50 GAGE [id number] 03/01/20 08:52 GAGE 03/01/20 08:50 Wound Center Nurse 2 4-Left Medial Posterior Heel -Time 08:50 -Correct Patient Yes -Correct Side, Site, Position Yes -Correct Procedure Yes -Procedure Performed Yes -Type of Procedure Debridement -Clinical Debridement Subcutaneous -Post Debridement Size (cm) - Length 0.3 -Post Debridement Size (cm) - Width 0.3 -Post Debridement Size (cm) - Depth 1 -Total Square (cm) 0.09 -Wound/Ulcer Outcome Not Healed -Ulcer Cleansing Rinsed/ Irrigated with Saline -Foul Odor after Cleansing No -Bleeding Controlled with Pressure -Offloading Yes -Type of Offloading Knee Walker -Treatment Response Procedure Tolerated Well 3-left posterior heel -Time 08:51 -Correct Patient Yes -Correct Side, Site, Position Yes -Correct Procedure Yes -Procedure Performed Yes -Type of Procedure Debridement -Clinical Debridement Subcutaneous -Post Debridement Size (cm) - Length 1.7 -Post Debridement Size (cm) - Width 1.7 -Post Debridement Size (cm) - Depth 1.5 -Total Square (cm) 2.89 -Wound/Ulcer Outcome Not Healed -Ulcer Cleansing Rinsed/ Irrigated with Saline -Foul Odor after Cleansing No -Bioengineered Tissue No -Bleeding Controlled with Pressure -Offloading Yes -Type of Offloading Knee Walker -Treatment Response Procedure Tolerated Well Pain Scale: 0-10 Numeric Is Patient Pain Free? Yes Wound debrided: medial heel Laterality: Left Wound Grade/Stage: grade 1 Type of Debridement: Excisional debridement Anesthesia Used: 5% Lidocaine Gel Depth: in the subcutaneous layer Percentage of wound debrided: 100 Instrument Used: #15 blade Tissue Removed: fibrous, devitalized subcutaneous, biofilm, slough Severity: Fat Layer Exposed Amount of bleeding with debridement: Mild Bleeding Controlled with: Pressure Patient tolerated procedure well - Additional Wound Wound debrided: plantar heel Laterality: Left Wound Grade/Stage: grade 3 Type of Debridement: Excisional debridement Anesthesia Used: 5% Lidocaine Gel Depth: in the subcutaneous layer Percentage of wound debrided: 100 Instrument Used: #15 blade Tissue Removed: fibrous, devitalized subcutaneous, biofilm, slough Severity: Fat Layer Exposed Amount of bleeding with debridement: Mild Bleeding Controlled with: Pressure Patient tolerated procedure: Patient tolerated procedure well Assessment/Plan Assessment: Left heel ulcer previous grade 3 ulcer status with osteomyelitis that has stabilized and looks clinically stable. ulcer medial left heel. Acute on chronic osteomyelitis left heel. Peripheral vascular disease with recent intervention performed. Diabetes with neuropathy. Malnutrition. Other comorbidities. Walking difficulty. Delayed healing Plan: This patient was examined and evaluated today. Subcutaneous excisional debridement was performed as noted in the clinical panel to the medial and p lantar ulcer site. To continue washing his foot with [employer] Cherelle-Hex soap. It is imperative that he keep pressure off of this site. To change daily dressing with Viraliti Ag. His labs were reviewed and he did not demonstrate leukocytosis. He does have elevated C-reactive protein and an ESR of 66. His cultures demonstrate corynebacterium and MSSA is consistent with skin minerva. His C. difficile history is also noted. This will be monitored very close. An x-ray of his hindfoot to evaluate for any new osseous destruction was noted. He does have a prior diagnosis of osteomyelitis that was previously treated surgically and medically with IV antibiotics. He has a very large spur with proliferative calcification. This is consistent with biomechanical changes and osteomyelitis course. Is noted she is previously had osteomyelitis in the same location and was treated medically for this. This previously excised bone was sent to both microbiology and pathology. This demonstrated osteomyelitis. I recommend that he sees infectious disease today and this was performed and appreciated. Dr. Luna recommends a 6-week course of oral Duricef and doxycycline. I also offered him an operating room debridement to aggressively excise this heel spur he does not want to proceed forward with this at this time. This may be necessary to get this prominent bone off of the friable skin that has been trying to heal. It is okay to continue with the Aquacel Ag to the plantar and medial ulcer site which appears to be doing well. I recommend he continues probiotic use. He relates he is not been doing this and he has not plan to use probiotics. The purpose and benefits of doing so were reviewed with him. He was advised to continue knee roller use at home to aid with compliance. He certainly has many comorbidities and this makes him higher risk for infection and delayed healing. It is noted his noninvasive vascular studies were abnormal again and he has had previous lower extremity ulcers with significant delayed healing. He was advised to follow-up with Dr. Beck, vascular surgeon, as scheduled and advised. He has had prior intervention already. We also discussed the treatment option of hyperbaric oxygen therapy because he does have a grade 3 ulcer and prior diagnosis of osteomyelitis. He is not able to come to the wound care center on a daily basis and is not ready to commit to this process. The indications, planned application, anticipated healing time management and benefits and complications were discussed. We also discussed the treatment option of below-knee amputation today because she is very fatigued by having to travel to the wound care center and he is having significant delays in healing. He is not interested in consi dering this option at this time. I answered his questions. He is on a palliative care program however with his current status changes being monitored, I recommend he returns in 1 week. He will consider moving to [place] with his family after COVID-19 pandemic stabilizes. I reviewed his case with his daughter, Sarah, last week. 2019 [facility] entry-. Reviewed today: He denies falling within the past year. His medication allergy profile has been reconciled. Reviewed August 18, 2019: He is having a current smoking status and cessation intervention was advised. His blood pressure is 163/94 which is elevated. I recommend he follows up with his primary care physician due to associated risk factors. He is advised to maintain appropriate activity and diet as well. He does have an advanced care plan on file. His pneumococcal influenza immunization status was also reviewed.
[2020-03-08 14:32] VITALS: BP 150/70; PULSE 77; RESP 16; TEMP 35.8; BMI 27.3
--- NOTE | 2020-03-08 18:59 | PCM.PN.ID ---
Subjective: Feeling better, heel improving, no fever, no n/v/d on po abx. - Physical Exam Vitals/I&O's: Vital Signs Temp Pulse Resp BP 96.4 F L 77 16 150/70 H 03/08/20 14:32 03/08/20 14:32 03/08/20 14:32 03/08/20 14:32 Oxygen Delivery Method Room Air Body Mass Index (BMI) 27.3 General: Alert, Cooperative, No apparent distress Lungs: Clear to auscultation, Normal air movement Cardiovascular: Regular rate, Regular Rhythm Abdomen: Soft, Non Tender, Non-Distended Skin: Ulcer/ Wound - L heel no longer exposed bone Medical Necessity - Tobacco Use Smoking Status: Former smoker Route of nutrition/ use of supplements: [] Nutritional Intake: [] IV Site: [] Byrd Catheter: [] - Assessment/Plan Antibiotics: [] Assessment/Plan: [] L heel osteo - cont po abx as planned for 6 week course. Overall improving. Will follow as needed, d/w Dr. Cifuentes
--- NOTE | 2020-03-08 22:47 | PN.PCM_ITS ---
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 of necrosis Status: Chronic Code(s): L97.526 - Non-pressure chronic ulcer of other part of left foot with bone involvement without evidence of necrosis (4) Type 2 diabetes mellitus with diabetic polyneuropathy Status: Chronic Code(s): E11.42 - Type 2 diabetes mellitus with diabetic polyneuropathy (5) Chronic ulcer of left foot with fat layer exposed Status: Chronic Code(s): L97.522 - Non-pressure chronic ulcer of other part of left foot with fat layer exposed (6) Delayed wound healing Status: Chronic Code(s): T14.8XXD - Other injury of unspecified body region, subsequent encounter (7) Malnutrition Status: Chronic Code(s): E46 - Unspecified protein-calorie malnutrition Type of Wound Date of Service: 03/08/20 Chief Complaint: Left heel ulcers History of Wound: This 74-year-old male with multiple comorbidities was seen today for left plantar heel ulcer. He is also seen today for medial heel ulcer and plantar foot ulcer with decreased drainage and swelling. He had bone debridement performed which demonstrated osteomyelitis. He is also seen by infectious disease today. He denies odor, redness, warmth. He is reducing his activity at home by asking for more help. He relates he eats 1 meal a day and no longer drinks alcohol like he was previously. He is interested in going to underwriting operations manager however is concerned about asking his neighbor to take him to even more appointments is very overwhelming. He is worried about the coronavirus and is not able to move to [place] to be with his family at this time. Progress of Wound: Healed medial heel. Plantar heel has stabilized and no local infection is visualized today - Physical Exam Vital Signs Temp Pulse Resp BP 96.4 F L 77 16 150/70 H 03/08/20 14:32 03/08/20 14:32 03/08/20 14:32 03/08/20 14:32 General: Alert, Oriented x3, Cooperative, No apparent distress Extremities: No cyanosis, Capillary Refill Less than 3 Seconds, No Calf Tenderness, Diminished Peripheral Pulses, Edema - Mild Skin: Ulcer/ Wound - No purulence, erythema, streaking, odor, local infection. No probe to bone or exposed bone and heel ulcer. This wound bed appears healthy with granulation tissue. The medial heel ulcer is fully epithelialized and healed. The adjacent skin is hairless and atrophic. Wound Measurements and Assessment WC - Nurse 1 - General Ulcer Measurement Start: 03/01/20 08:17 Freq: Status: Active Protocol: Activity Type Activity Date Activity User E-Sign Co-Sign Detail Recorded Client Recorded Date Recorded By Document 03/08/20 14:32 [facility] [id number] 03/08/20 14:42 [facility] 03/08/20 14:32 Wound Center Nurse 1 [Ulcer Assessment] 4-Left Medial Posterior Heel -Combined with other wound No -Current Size (cm) - Length 0.1 -Current Size (cm) - Width 0.1 -Current Size (cm) - Depth 0.1 -Total Square Cm 0.01 -Epithelialization Large 67-100% -Tunneling No -Undermining/Tunneling No -Circular Undermining No -Texture (Emily-wound Skin Appearance) Assessed -Moisture (Emily-wound Skin Appearance Assessed,Dry/ ) Scaly -Color (Emily-wound Skin Appearance) Assessed -Temperature (Emily-wound Skin No Abnormality Appearance) (Pt Warm) -Tenderness on Palpation (Emily-wound No Skin Appearance) -Ulcer Cleansing Rinsed/ Irrigated with Saline -Foul Odor after Cleansing No -Anesthetic Used 4% Lidocaine Solution 3-left posterior heel -Combined with other wound No -Current Size (cm) - Length 1.8 -Current Size (cm) - Width 1.5 -Current Size (cm) - Depth 1 -Total Square Cm 2.70 -Photo Taken No -Epithelialization None Present -Tunneling No -Undermining/Tunneling Yes -Undermining/Tunneling Starts (O' 4 clock) -Undermining/Tunneling Ends (O'clock) 8 -Maximum Distance (cm) 1.3 -Circular Undermining No -Exudate Amt Small -Exudate Type Serosanguineous -Wound Margin Thickened & Rolled Under -Granulation Amt Large (67-100%) -Granulation Quality Pale,Red -Slough/Fibrin Yes -Necrosis Amt Small (1-33%) -Necrotic Tissue Type Adherent Slough -Texture (Emily-wound Skin Appearance) Assessed -Moisture (Emily-wound Skin Appearance Assessed, ) Maceration -Color (Emily-wound Skin Appearance) Assessed,Palor -Temperature (Emily-wound Skin No Abnormality Appearance) (Pt Warm) -Tenderness on Palpation (Emily-wound No Skin Appearance) -Ulcer Cleansing Rinsed/ Irrigated with Saline -Foul Odor after Cleansing No -Anesthetic Used 4% Lidocaine Solution WC - Nurse 2 - General Ulcer CM Notes Start: 03/01/20 08:17 Freq: Status: Active Protocol: Activity Type Activity Date Activity User E-Sign Co-Sign Detail Recorded Client Recorded Date Recorded By Document 03/08/20 15:05 [facility] [id number] 03/08/20 15:06 [facility] 03/08/20 15:05 Wound Center Nurse 2 [Procedure/Treatment] 4-Left Medial Posterior Heel -Correct Patient No -Correct Side, Site, Position No -Correct Procedure No -Procedure Performed No -Post Debridement Size (cm) - Length 0 -Post Debridement Size (cm) - Width 0 -Post Debridement Size (cm) - Depth 0 -Total Square (cm) 0 -Wound/Ulcer Outcome Healed- Epithelialized 3-left posterior heel -Time 15:06 -Correct Patient Yes -Correct Side, Site, Position Yes -Correct Procedure Yes -Procedure Performed Yes -Type of Procedure Debridement -Clinical Debridement Subcutaneous -Post Debridement Size (cm) - Length 1.8 -Post Debridement Size (cm) - Width 1.6 -Post Debridement Size (cm) - Depth 1.0 -Total Square (cm) 2.88 -Wound/Ulcer Outcome Not Healed -Ulcer Cleansing Rinsed/ Irrigated with Saline -Foul Odor after Cleansing No -Bioengineered Tissue No -Bleeding Controlled with Pressure -Offloading Yes -Type of Offloading Knee Walker -Treatment Response Procedure Tolerated Well [See Physician Procedure note for Specifics] Pain Scale: 0-10 Numeric [Pain] -Is Patient Pain Free? Yes Musculoskeletal: Muscle Wasting Neurological: - - Lack of epicritic sensation to light touch is consistent with his neuropathy status Psych/Mental Status: Normal Affect, Appropriate Debridement Note Post-Debridement Measurements/Treatment WC - Nurse 2 - General Ulcer CM Notes Start: 03/01/20 08:17 Freq: Status: Active Protocol: Activity Type Activity Date Activity User E-Sign Co-Sign Detail Recorded Client Recorded Date Recorded By Document 03/01/20 08:50 [id number] 03/01/20 08:52 Document 03/08/20 15:05 [id number] 03/08/20 15:06 03/01/20 03/08/20 08:50 15:05 Wound Center Nurse 2 4-Left Medial Posterior Heel -Time 08:50 -Correct Patient Yes No -Correct Side, Site, Position Yes No -Correct Procedure Yes No -Procedure Performed Yes No -Type of Procedure Debridement -Clinical Debridement Subcutaneous -Post Debridement Size (cm) - Length 0.3 0 -Post Debridement Size (cm) - Width 0.3 0 -Post Debridement Size (cm) - Depth 1 0 -Total Square (cm) 0.09 0 -Wound/Ulcer Outcome Not Healed Healed- Epithelialized -Ulcer Cleansing Rinsed/ Irrigated with Saline -Foul Odor after Cleansing No -Bleeding Controlled with Pressure -Offloading Yes -Type of Offloading Knee Walker -Treatment Response Procedure Tolerated Well 3-left posterior heel -Time 08:51 15:06 -Correct Patient Yes Yes -Correct Side, Site, Position Yes Yes -Correct Procedure Yes Yes -Procedure Performed Yes Yes -Type of Procedure Debridement Debridement -Clinical Debridement Subcutaneous Subcutaneous -Post Debridement Size (cm) - Length 1.7 1.8 -Post Debridement Size (cm) - Width 1.7 1.6 -Post Debridement Size (cm) - Depth 1.5 1.0 -Total Square (cm) 2.89 2.88 -Wound/Ulcer Outcome Not Healed Not Healed -Ulcer Cleansing Rinsed/ Rinsed/ Irrigated with Irrigated with Saline Saline -Foul Odor after Cleansing No No -Bioengineered Tissue No No -Bleeding Controlled with Pressure Pressure -Offloading Yes Yes -Type of Offloading Knee Walker Knee Walker -Treatment Response Procedure Procedure Tolerated Well Tolerated Well Pain Scale: 0-10 Numeric Is Patient Pain Free? Yes Yes Wound debrided: plantar heel Laterality: Left Wound Grade/Stage: grade 3 Type of Debridement: Excisional debridement Anesthesia Used: 5% Lidocaine Gel Depth: in the subcutaneous layer Percentage of wound debrided: 100 Instrument Used: #15 blade Tissue Removed: fibrous, devitalized subcutaneous, biofilm, slough Severity: Fat Layer Exposed Amount of bleeding with debridement: Mild Bleeding Controlled with: Pressure Patient tolerated procedure well Assessment/Plan Assessment: Left heel ulcer previous grade 3 ulcer status with osteomyelitis that has stabilized and looks clinically stable. ulcer medial left heel, healed. Acute on chronic osteomyelitis left heel. Peripheral vascular disease with recent intervention performed. Diabetes with neuropathy. Malnutrition. Other comorbidities. Walking difficulty. Delayed healing Plan: This patient was examined and evaluated today. Subcutaneous excisional debridement was performed as noted in the clinical panel to the plantar ulcer site. To continue washing his foot with [employer] Cherelle-Hex soap. It is imperative that he keep pressure off of this site. To change daily dressing with Aquacel Ag. His labs were reviewed and he did not demonstrate leukocytosis. He does have elevated C-reactive protein and an ESR of 66. His cultures demonstrate corynebacterium and MSSA is consistent with skin minerva. His C. difficile history is also noted. This will be monitored very close. An x-ray of his hindfoot to evaluate for any new osseous destruction was noted. He does have a prior diagnosis of osteomyelitis that was previously treated surgically and medically with IV antibiotics. He has a very large spur with proliferative calcification. This is consistent with biomechanical changes and osteomyelitis course. Is noted she is previously had osteomyelitis in the same location and was treated medically for this. This previously excised bone was sent to both microbiology and pathology. This demonstrated osteomyelitis. I recommend that he sees infectious disease today and this was performed and appreciated. Dr. Luna recommends a 6-week course of oral Duricef and doxycycline. He will follow-up with infectious disease as needed and appears to be responding well to his initial course. I also offered him an operating room debridement to aggressively excise this heel spur he does not want to proceed forward with this at this time. This may be necessary to get this prominent bone off of the friable skin that has been trying to heal. It is okay to continue with the Aquacel Ag to the plantar ulcer site which appears to be doing well. I recommend he continues probiotic use. The purpose and benefits of doing so were reviewed with him. He was advised to continue knee roller use at home to aid with compliance. He certainly has many comorbidities and this makes him higher risk for infection and delayed healing. It is noted his noninvasive vascular studies were abnormal again and he has had previous lower extremity ulcers with significant delayed healing. He was advised to follow-up with Dr. Beck, vascular surgeon, as scheduled and advised. He has had prior int ervention already. We also discussed the treatment option of hyperbaric oxygen therapy because he does have a grade 3 ulcer and prior diagnosis of osteomyelitis. He is not able to come to the wound care center on a daily basis and is not ready to commit to this process. The indications, planned application, anticipated healing time management and benefits and complications were discussed. We also discussed the treatment option of below-knee amputation today because she is very fatigued by having to travel to the wound care center and he is having significant delays in healing. He is not interested in considering this option at this time. Today, we also discussed nutritional needs in more detail. It is noted he is only eating 1 meal a day and I am concerned he is not obtaining the appropriate nutrients to promote wound healing. We discussed the basis of the importance of eating a whole food diet balanced with enough of each macro and micronutrient. I recommended seeing a underwriting operations manager who can help explain this in a more formal manner and walked him through daily application. He is interested in this however is unable to get transportation to this visit. I would like to start seeing him on a biweekly basis and recommend that he takes that time and transportation opportunity go to the underwriting operations manager on the off that weeks. He will consider this and will talk to his neighbor Paul about this opportunity. I answered his questions. He is on a palliative care program however with his current status changes being monitored, I recommend he returns in 1 week. He will consider moving to [place] with his family after COVID-19 pandemic stabilizes. 2020 macra entry-. Reviewed today: He denies falling within the past year. His medication allergy profile has been reconciled. Reviewed August 18, 2019: He is having a current smoking status and cessation intervention was advised. His blood pressure is 163/94 which is elevated. I recommend he follows up with his primary care physician due to associated risk factors. He is advised to maintain appropriate activity and diet as well. He does have an advanced care plan on file. His pneumococcal influenza immunization status was also reviewed.
[2020-03-22 08:15] VITALS: BP 150/84; PULSE 90; RESP 18; TEMP 36.5; BMI 27.3
--- NOTE | 2020-03-22 09:05 | PN.PCM_ITS ---
(1) Osteomyelitis of left foot Status: Chronic Current Visit: Yes Code(s): M86.9 - Osteomyelitis, unspecified (2) PVD (peripheral vascular disease) Status: Chronic Current Visit: Yes Code(s): I73.9 - Peripheral vascular disease, unspecified (3) Ulcer of left foot with bone involvement without evidence of necrosis Status: Chronic Current Visit: Yes Code(s): L97.526 - Non-pressure chronic ulcer of other part of left foot with bone involvement without evidence of necrosis (4) Type 2 diabetes mellitus with diabetic polyneuropathy Status: Chronic Current Visit: Yes Code(s): E11.42 - Type 2 diabetes mellit us with diabetic polyneuropathy (5) Chronic ulcer of left foot with fat layer exposed Status: Chronic Current Visit: Yes Code(s): L97.522 - Non-pressure chronic ulcer of other part of left foot with fat layer exposed (6) Delayed wound healing Status: Chronic Current Visit: Yes Code(s): T14.8XXD - Other injury of unspecified body region, subsequent encounter (7) Malnutrition Status: Chronic Current Visit: Yes Code(s): E46 - Unspecified protein- calorie malnutrition Type of Wound Date of Service: 03/22/20 Chief Complaint: Left heel ulcers History of Wound: This 74-year-old male with multiple comorbidities was seen today for left plantar heel ulcer. He had bone debridement performed which demonstrated osteomyelitis. He is also seen by infectious disease today. He denies odor, redness, warmth. He is reducing his activity at home by asking for more help. His grandson will help him cut the grass once a month and he has a new riding mower. He relates he eats 1 meal a day and no longer drinks alcohol like he was previously. He refuses to proceed forward with the manager combination referral at this time. He denies diarrhea but occasionally he has some stomach upset. He continues to take probiotics. He relates he is about group home done with his oral antibiotics and he is under the management of infectious disease. Progress of Wound: Plantar heel has stabilized and no local infection visualized today - Physical Exam Vital Signs Temp Pulse Resp BP 97.7 F L 90 18 150/84 H 03/22/20 08:15 03/22/20 08:15 03/22/20 08:15 03/22/20 08:15 General: Alert, Oriented x3, Cooperative, No apparent distress Extremities: No cyanosis, Capillary Refill Less than 3 Seconds, No Calf Te nderness, Diminished Peripheral Pulses, Edema Skin: Ulcer/ Wound - No purulence, erythema, streaking, odor, infection. Peripheral skin is atrophic and hairless Wound Measurements and Assessment WC - Nurse 1 - General Ulcer Measurement Start: 03/01/20 08:17 Freq: Status: Active Protocol: Activity Type Activity Date Activity User E-Sign Co-Sign Detail Recorded Client Recorded Date Recorded By Document 03/22/20 08:15 RB [id number] 03/22/20 08:18 RB 03/22/20 08:15 Wound Center Nurse 1 [Ulcer Assessment] 3-left posterior heel -Combined with other wound No -Current Size (cm) - Length 1.4 -Current Size (cm) - Width 1.5 -Current Size (cm) - Depth 1 -Total Square Cm 2.10 -Tunneling No -Undermining/Tunneling Yes -Undermining/Tunneling Starts (O' 12 clock) -Undermining/Tunneling Ends (O'clock) 12 -Maximum Distance (cm) 0.5 -Exudate Amt Small -Exudate Type Serosanguineous -Wound Margin Thickened & Rolled Under -Granulation Amt Medium (34-66%) -Granulation Quality [place] -Slough/Fibrin Yes -Necrosis Amt Small (1-33%) -Necrotic Tissue Type Adherent Slough -Structure Exposed N/A -Texture (Emily-wound Skin Appearance) Assessed -Moisture (Emily-wound Skin Appearance Assessed, ) Maceration -Color (Emily-wound Skin Appearance) Assessed -Temperature (Emily-wound Skin No Abnormality Appearance) (Pt Warm) -Tenderness on Palpation (Emily-wound No Skin Appearance) -Ulcer Cleansing Wound Cleanser -Foul Odor after Cleansing No -Anesthetic Used 4% Lidocaine Solution [Edema Assessment] -Lower Limb Edema Present Yes -Left Calf (cm) 32.5 -Left Ankle (cm) 20.5 WC - Nurse 2 - General Ulcer CM Notes Start: 03/22/20 08:26 Freq: Status: Active Protocol: Activity Type Activity Date Activity User E-Sign Co-Sign Detail Recorded Client Recorded Date Recorded By Document 03/22/20 08:27 GAGE [id number] 03/22/20 08:29 GAGE 08/26/20 08:27 Wound Center Nurse 2 [Procedure/Treatment] 3-left posterior heel -Time 08:27 -Correct Patient Yes -Correct Side, Site, Position Yes -Correct Procedure Yes -Procedure Performed Yes -Type of Procedure Debridement -Clinical Debridement Subcutaneous -Tissue Removed Subcutaneous -Post Debridement (cm) - Length 2.1 -Post Debridement (cm) - Width 1.4 -Post Debridement (cm) - Depth 1.0 -Total Square (Post) (cm) 2.94 -Area of Debridement (cm) - Length 2.1 -Area of Debridement (cm) - Width 1.4 -Total Square (Area) (cm) 2.94 -Tunneling No -Undermining/Tunneling No -Circular Undermining No -Wound/Ulcer Outcome Not Healed -Ulcer Cleansing Rinsed/ Irrigated with Saline -Foul Odor after Cleansing No -Bioengineered Tissue No -Bleeding Controlled with Pressure -Offloading Yes -Type of Offloading Knee Walker -Treatment Response Procedure Tolerated Well -Debridement - Subq, 1st 20sq cm Yes [See Physician Procedure note for Specifics] Pain Scale: 0-10 Numeric [Pain] -Is Patient Pain Free? Yes Musculoskeletal: No Tenderness to Palpation of Joints or Extremities, Muscle Wasting Neurological: - - Lack of normal epicritic sensation light touch is consistent with neuropathy status Psych/Mental Status: Normal Affect, Appropriate Debridement Note Post-Debridement Measurements/Treatment WC - Nurse 2 - General Ulcer CM Notes Start: 03/22/20 08:26 Freq: Status: Active Protocol: Activity Type Activity Date Activity User E-Sign Co-Sign Detail Recorded Client Recorded Date Recorded By Document 03/22/20 08:27 JF [id number] 03/22/20 08:29 GAGE 03/22/20 08:27 Wound Center Nurse 2 3-left posterior heel -Time 08:27 -Correct Patient Yes -Correct Side, Site, Position Yes -Correct Procedure Yes -Procedure Performed Yes -Type of Procedure Debridement -Clinical Debridement Subcutaneous -Tissue Removed Subcutaneous -Post Debridement (cm) - Length 2.1 -Post Debridement (cm) - Width 1.4 -Post Debridement (cm) - Depth 1.0 -Total Square (Post) (cm) 2.94 -Area of Debridement (cm) - Length 2.1 -Area of Debridement (cm) - Width 1.4 -Total Square (Area) (cm) 2.94 -Tunneling No -Undermining/Tunneling No -Circular Undermining No -Wound/Ulcer Outcome Not Healed -Ulcer Cleansing Rinsed/ Irrigated with Saline -Foul Odor after Cleansing No -Bioengineered Tissue No -Bleeding Controlled with Pressure -Offloading Yes -Type of Offloading Knee Walker -Treatment Response Procedure Tolerated Well -Debridement - Subq, 1st 20sq cm Yes Pain Scale: 0-10 Numeric Is Patient Pain Free? Yes Wound debrided: plantar heel Laterality: Left Wound Grade/Stage: grade 3 Type of Debridement: Excisional debridement Anesthesia Used: 5% Lidocaine Gel Depth: in the subcutaneous layer Percentage of wound debrided: 100 Instrument Used: #15 blade Tissue Removed: fibrous, devitalized subcutaneous, biofilm, slough Severity: Fat Layer Exposed Amount of bleeding with debridement: Mild Bleeding Controlled with: Pressure Patient tolerated procedure well Assessment/Plan Active Problems (Last Reviewed 09/15/19 @ 08:[address] Td Bronson MD) PVD (peripheral vascular disease) (Chronic) Ulcer of left foot with bone involvement without evidence of necrosis (Chronic) Osteomyelitis of left foot (Chronic) Type 2 diabetes mellitus with diabetic polyneuropathy (Chronic) Chronic ulcer of left foot with fat layer exposed (Chronic) Delayed wound healing (Chronic) Malnutrition (Chronic) Assessment: Left heel ulcer previous grade 3 ulcer status with osteomyelitis that has stabilized and looks clinically stable. Acute on chronic osteomyelitis left heel. Peripheral vascular disease with recent intervention performed. Diabetes with neuropathy. Malnutrition. Other comorbidities. Walking difficulty. Delayed healing Plan: This patient was examined and evaluated today. Subcutaneous excisional debridement was performed as noted in the clinical panel to the plantar ulcer site. To continue washing his foot with [employer] C[employer]-Hex soap. It is imperative that he keep prethis area ssure off of this site. To change daily dressing with Aquacel Ag. His labs were reviewed and he did not demonstrate leukocytosis. He does have elevated C-reactive protein and an ESR of 66. His cultures demonstrate corynebacterium and MSSA is consistent with skin minerva. His C. difficile history is also noted. This will be monitored very close. An x-ray of his hindfoot to evaluate for any new osseous destruction was noted. He does have a prior diagnosis of osteomyelitis that was previously treated surgically and medically with IV antibiotics. He has a very large spur with proliferative calcification. This is consistent with biomechanical changes and osteomyelitis course. Is noted he previously had osteomyelitis in the same location and was treated medically for this. This previously excised bone was sent to both microbiology and pathology. This demonstrated osteomyelitis. I recommend that he sees infectious disease today and this was performed and appreciated. Dr. Luna recommends a 6-week course of oral Duricef and doxycycline. He will follow-up with infectious disease as needed and appears to be responding well to his initial course. I also offered him an operating room debridement to aggressively excise this heel spur he does not want to proceed forward with this at this time. This may be necessary to get this prominent bone off of the friable skin that has been trying to heal. It is okay to continue with the Aquacel Ag to the plantar ulcer site which appears to be doing well. I recommend he continues probiotic use. The purpose and be nefits of doing so were reviewed with him. He was advised to continue knee roller use at home to aid with compliance. He certainly has many comorbidities and this makes him higher risk for infection and delayed healing. It is noted his noninvasive vascular studies were abnormal again and he has had previous lower extremity ulcers with significant delayed healing. He was advised to follow-up with Dr. Beck, vascular surgeon, as scheduled and advised. He has had prior intervention already. We also discussed the treatment option of hyperbaric oxygen therapy because he does have a grade 3 ulcer and prior diagnosis of osteomyelitis. He is not able to come to the wound care center on a daily basis and is not ready to commit to this process. The indications, planned application, anticipated healing time management and benefits and complications were discussed. We also discussed the treatment option of below- knee amputation today because she is very fatigued by having to travel to the wound care center and he is having significant delays in healing. He is not interested in considering this option at this time. Today, we also discussed nutritional needs in more detail. It is noted he is only eating 1 meal a day and I am concerned he is not obtaining the appropriate nutrients to promote wound healing. He refuses at this time. He is on a palliative care program however with his current status changes being monitored, I recommend he returns in 1 week. He will consider moving to [place] with his family after COVID-19 pandemic stabilizes. 2019 [facility] entry-. Reviewed today: He denies falling within the past year. His medication allergy profile has been reconciled. Reviewed August 18, 2019: He is having a current smoking status and cessation intervention was advised. His blood pressure is 163/94 which is elevated. I recommend he follows up with his primary care physician due to associated risk factors. He is advised to maintain appropriate activity and diet as well. He does have an advanced care plan on file. His pneumococcal influenza immunization status was also reviewed.
== END 2020-03-27 23:59 ==
LOC: WC 08:00
PROVIDERS: Family Provider Family Medicine; PCP Family Medicine; Referring Provider Podiatrist; Visit Provider Podiatrist
DX: E11.621 Type 2 diabetes mellitus with foot ulcer (principal); E11.42 Type 2 diabetes mellitus with diabetic polyneuropathy; E11.51 Type 2 diabetes mellitus with diabetic peripheral angiopathy without gangrene; L97.422 Non-pressure chronic ulcer of left heel and midfoot with fat layer exposed; R26.2 Difficulty in walking, not elsewhere classified; M86.672 Other chronic osteomyelitis, left ankle and foot; E11.69 Type 2 diabetes mellitus with other specified complication; F17.200 Nicotine dependence, unspecified, uncomplicated
CPT/HCPCS: 11042

== ENCOUNTER 2020-04-26 08:00 | Outpatient (RCR) | payer MEDICARE, SELFPAY ==
[2020-03-28 00:27] VITALS: BP 150/84; PULSE 90; RESP 18; TEMP 36.5
[2020-04-05 08:08] VITALS: BP 172/78; PULSE 69; RESP 18; TEMP 36.2; BMI 27.3
--- NOTE | 2020-04-05 09:01 | PCM.WC.PN ---
(1) PVD (peripheral vascular disease) Status: Chronic Current Visit: Yes Code(s): I73.9 - Peripheral vascular disease, unspecified (2) Ulcer of left foot with bone involvement without evidence of necrosis Status: Chronic Current Visit: Yes Code(s): L97.526 - Non-pressure chronic ulcer of other part of left foot with bone involvement without evidence of necrosis (3) Type 2 diabetes mellitus with diabetic polyneuropathy Status: Chronic Current Visit: Yes Code(s): E11.42 - Type 2 diabetes mellitus with diabetic polyneuropathy (4) Delayed wound healing Status: Chronic Current Visit: Yes Code(s): T14.8XXD - Other injury of unspecified body region, subsequent encounter (5) Malnutrition Status: Chronic Current Visit: Yes Code(s): E46 - Unspecified protein-calorie malnutrition Type of Wound Date of Service: 04/05/20 Chief Complaint: Left heel ulcer History of Wound: This 74-year-old male with multiple comorbidities was seen today for left plantar heel ulcer. He had bone debridement performed which demonstrated osteomyelitis. He is also seen by infectious disease and is on a [facility] course of antibiotics; he is almost done with his course. He denies odor, redness, warmth. Progress of Wound: Plantar heel has stabilized and no local infection visualized today - Physical Exam Vital Signs Temp Pulse Resp BP 97.1 F L 69 18 172/78 H 04/05/20 08:08 04/05/20 08:08 04/05/20 08:08 04/05/20 08:08 General: Alert, Oriented x3, Cooperative, No apparent distress HEENT: Atraumatic Extremities: No cyanosis, Capillary Refill Less than 3 Seconds, No Calf Tenderness, Diminished Peripheral Pulses, Edema Skin: Ulcer/ Wound - No purulence, erythema, streaking, odor, infection. Adjacent skin is hairless and atrophic. There is no longer any visualized bone. There is granular bleeding base of the ulcer noted. There is peripheral callus moderate Wound Measurements and Assessment WC - Nurse 1 - General Ulcer Measurement Start: 04/05/20 08:08 Freq: Status: Active Protocol: Activity Type Activity Date Activity User E-Sign Co-Sign Detail Recorded Client Recorded Date Recorded By Document 04/05/20 08:08 RB [id number] 04/05/20 08:10 RB 04/05/20 08:08 Wound Center Nurse 1 [Ulcer Assessment] 3-left posterior heel -Combined with other wound No -Current Size (cm) - Length 1 -Current Size (cm) - Width 1.1 -Current Size (cm) - Depth 0.9 -Total Square Cm 1.1 -Tunneling No -Undermining/Tunneling Yes -Undermining/Tunneling Starts (O' 12 clock) -Undermining/Tunneling Ends (O'clock) 12 -Maximum Distance (cm) 0.5 -Circular Undermining Yes -Exudate Amt Small -Exudate Type Serosanguineous -Wound Margin Thickened & Rolled Under -Granulation Amt Medium (34-66%) -Granulation Quality [place] -Slough/Fibrin Yes -Necrosis Amt Small (1-33%) -Necrotic Tissue Type Adherent Slough -Structure Exposed N/A -Texture (Emily-wound Skin Appearance) Assessed -Moisture (Emily-wound Skin Appearance Maceration ) -Color (Emily-wound Skin Appearance) Assessed -Temperature (Emily-wound Skin No Abnormality Appearance) (Pt Warm) -Tenderness on Palpation (Emily-wound No Skin Appearance) -Ulcer Cleansing Wound Cleanser -Foul Odor after Cleansing No -Anesthetic Used 4% Lidocaine Solution WC - Nurse 2 - General Ulcer CM Notes Start: 04/05/20 08:08 Freq: Status: Active Protocol: Activity Type Activity Date Activity User E-Sign Co-Sign Detail Recorded Client Recorded Date Recorded By Document 04/05/20 08:18 JF [id number] 04/05/20 08:20 JF 04/05/20 08:18 Wound Center Nurse 2 [Procedure/Treatment] -Time 08:19 -Correct Patient Yes -Correct Side, Site, Position Yes -Correct Procedure Yes -Procedure Performed Yes -Type of Procedure Debridement -Clinical Debridement Subcutaneous -Tissue Removed Subcutaneous -Post Debridement (cm) - Length 1.8 -Post Debridement (cm) - Width 1.4 -Post Debridement (cm) - Depth 0.7 -Total Square (Post) (cm) 2.52 -Area of Debridement (cm) - Length 1.8 -Area of Debridement (cm) - Width 1.4 -Total Square (Area) (cm) 2.52 -Tunneling No -Undermining/Tunneling No -Circular Undermining No -Wound/Ulcer Outcome Not Healed -Ulcer Cleansing Rinsed/ Irrigated with Saline -Foul Odor after Cleansing No -Bioengineered Tissue No -Bleeding Controlled with Pressure -Offloading Yes -Type of Offloading Knee Walker -Treatment Response Procedure Tolerated Well -Debridement - Subq, 1st 20sq cm Yes [See Physician Procedure note for Specifics] Pain Scale: 0-10 Numeric [Pain] -Is Patient Pain Free? Yes - Nurse 3 - General Ulcer D/C NN Start: 04/05/20 08:08 Freq: Status: Active Protocol: Activity Type Activity Date Activity User E-Sign Co-Sign Detail Recorded Client Recorded Date Recorded By Document 04/05/20 08:37 DE [id number] 04/05/20 08:39 DE 04/05/20 08:37 Wound Care Nurse 3 [Wound Dressing] 3-left posterior heel -Primary Dressing Applied Aquacel AG 2x2 -Primary Dressing Covered/Secured Dry Gauze & with Roll Gauze, Secured with Tape -Aquacel AG 2x2 1 Pain Scale: 0-10 Numeric [Pain] -Is Patient Pain Free? Yes - Visit Discharge [Visit Discharge Information] -Discharge Condition Stable -Ambulatory Status Walker -Transportation Private Auto -Medication Reconcilliation completed No & provided to patient/care provider -Clinical Summary of Care Provided Yes Musculoskeletal: No Tenderness to Palpation of Joints or Extremities, Muscle Wasting Neurological: - - Lack of normal epicritic sensation light touch is consistent with neuropathy status Psych/Mental Status: Normal Affect, Appropriate Debridement Note Post-Debridement Measurements/Treatment - Nurse 2 - General Ulcer CM Notes Start: 04/05/20 08:08 Freq: Status: Active Protocol: Activity Type Activity Date Activity User E-Sign Co-Sign Detail Recorded Client Recorded Date Recorded By Document 04/05/20 08:18 [id number] 04/05/20 08:20 04/05/20 08:18 Wound Center Nurse 2 3-left posterior heel -Time 08:19 -Correct Patient Yes -Correct Side, Site, Position Yes -Correct Procedure Yes -Procedure Performed Yes -Type of Procedure Debridement -Clinical Debridement Subcutaneous -Tissue Removed Subcutaneous -Post Debridement (cm) - Length 1.8 -Post Debridement (cm) - Width 1.4 -Post Debridement (cm) - Depth 0.7 -Total Square (Post) (cm) 2.52 -Area of Debridement (cm) - Length 1.8 -Area of Debridement (cm) - Width 1.4 -Total Square (Area) (cm) 2.52 -Tunneling No -Undermining/Tunneling No -Circular Undermining No -Wound/Ulcer Outcome Not Healed -Ulcer Cleansing Rinsed/ Irrigated with Saline -Foul Odor after Cleansing No -Bioengineered Tissue No -Bleeding Controlled with Pressure -Offloading Yes -Type of Offloading Knee Walker -Treatment Response Procedure Tolerated Well -Debridement - Subq, 1st 20sq cm Yes Pain Scale: 0-10 Numeric Is Patient Pain Free? Yes - Nurse 3 - General Ulcer D/C NN Start: 04/05/20 08:08 Freq: Status: Active Protocol: Activity Type Activity Date Activity User E-Sign Co-Sign Detail Recorded Client Recorded Date Recorded By Document 04/05/20 08:37 DE [id number] 04/05/20 08:39 DE 04/05/20 08:37 Wound Care Nurse 3 3-left posterior heel -Primary Dressing Applied Aquacel AG 2x2 -Primary Dressing Covered/Secured with Dry Gauze & Roll Gauze, Secured with Tape -Aquacel AG 2x2 1 Pain Scale: 0-10 Numeric Is Patient Pain Free? Yes WC - Visit Discharge Discharge Condition Stable Ambulatory Status Walker Transportation Private Auto Medication Reconcilliation completed & No provided to patient/care provider Clinical Summary of Care Provided Yes Wound debrided: plantar heel Laterality: Left Wound Grade/Stage: grade 3 Type of Debridement: Excisional debridement Anesthesia Used: 5% Lidocaine Gel Depth: in the subcutaneous layer Percentage of wound debrided: 100 Instrument Used: #15 blade Tissue Removed: fibrous, devitalized subcutaneous, biofilm, slough Severity: Fat Layer Exposed Amount of bleeding with debridement: Mild Bleeding Controlled with: Pressure Patient tolerated procedure well Assessment/Plan Active Problems (Last Reviewed 09/15/19 @ 08:[address] 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 Acute on chronic osteomyelitis left heel. Peripheral vascular disease with recent intervention performed. Diabetes with neuropathy. Malnutrition. Other comorbidities. Walking difficulty. Delayed healing. Inability to proceed with recommended treatments Plan: This patient was examined and evaluated today. Subcutaneous excisional debridement was performed as noted in the clinical panel to the plantar ulcer site. To continue washing his foot with Dial soap and water. It is imperative that he keep pressure off of this site. To change daily dressing with Aquacel Ag. His labs were reviewed and he did not demonstrate leukocytosis. He did have elevated C-reactive protein and an ESR of 66. His cultures demonstrate corynebacterium and MSSA is consistent with skin minerva. His C. difficile history is also noted. This will be monitored very close. An x-ray of his hindfoot to evaluate for any new osseous destruction was noted. He does have a prior diagnosis of osteomyelitis that was previously treated surgically and medically with IV antibiotics. He has a very large spur with proliferative calcification. This is consistent with biomechanical changes and osteomyelitis course. Is noted he previously had osteomyelitis in the same location and was treated medically for this. This previously excised bone was sent to both microbiology and pathology. This demonstrated osteomyelitis. He has been under the care of Dr. Luna and a 6-week course of oral Duricef and doxycycline is almost complete. He will follow-up with infectious disease as needed and appears to be responding well to his initial course. I also offered him an operating room debridement to aggressively excise this heel spur he does not want to proceed forward with this at this time. This may be necessary to get this prominent bone off of the friable skin that has been trying to heal. I He was advised to continue knee roller use at home to aid with compliance. He certainly has many comorbidities and this makes him higher risk for infection and delayed healing. It is noted his noninvasive vascular studies were abnormal again and he has had previous lower extremity ulcers with significant delayed healing. He was advised to follow-up with Dr. Beck, vascular surgeon, as scheduled and advised. He has had prior intervention already. We also discussed the treatment option of hyperbaric oxygen therapy because he does have a grade 3 ulcer and prior diagnosis of osteomyelitis. He is not able to come to the wound care center on a daily basis and is not ready to commit to this process. The indications, planned application, anticipated healing time management and benefits and complications were discussed. We also discussed the treatment option of below-knee amputation previously because she is very fatigued by having to travel to the wound care center and he is having significant delays in healing. He is not interested in considering this option at this time. He refused nutritional referral. Coming to weekly or biweekly appointments is significantly difficult and is disrupting his daily life. He is amenable to coming to clinic every 3 weeks only. He is on a palliative care program however with his current status changes being monitored. He will consider moving to [place] with his family after COVID-19 pandemic stabilizes. 2019 [employer] entry-. Reviewed today: He denies falling within the past year. His medication allergy profile has been reconciled. Reviewed August 18, 2019: He is having a current smoking status and cessation intervention was advised. His blood pressure is 163/94 which is elevated. I recommend he follows up with his primary care physician due to associated risk factors. He is advised to maintain appropriate activity and diet as well. He does have an advanced care plan on file. His pneumococcal influenza immunization status was also reviewed.
[2020-04-26 08:04] VITALS: BP 147/74; PULSE 74; RESP 20; TEMP 36.1; BMI 27.3
--- NOTE | 2020-04-26 10:03 | PCM.WC.PN ---
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 Code(s): L97.526 - Non-pressure chronic ulcer of other part of left foot with bone involvement without evidence of necrosis (3) Type 2 diabetes mellitus with diabetic polyneuropathy Status: Chronic Code(s): E11.42 - Type 2 diabetes mellitus with diabetic polyneuropathy (4) Delayed wound healing Status: Chronic Code(s): T14.8XXD - Other injury of unspecified body region, subsequent encounter (5) Malnutrition Status: Chronic Code(s): E46 - Unspecified protein-calorie malnutrition Type of Wound Date of Service: 04/26/20 Chief Complaint: Left heel ulcer History of Wound: This 74-year-old male with multiple comorbidities was seen today for left plantar heel ulcer. He has been through several rounds of antibiotics for recurrent bone infections. He denies odor, redness, warmth at this time. He is on a palliative care plan and would like to come in no more than once a month. More frequent visits are very disruptive to his life at this time and he is also concerned that coming into the clinical setting during the coronavirus pandemic. Progress of Wound: Plantar heel has stabilized and no local infection visualized today - Physical Exam Vital Signs Temp Pulse Resp BP 97 F L 74 20 H 147/74 H 04/26/20 08:04 04/26/20 08:04 04/26/20 08:04 04/26/20 08:04 General: Alert, Oriented x3, Cooperative, No apparent distress HEENT: Atraumatic Extremities: No cyanosis, Capillary Refill Less than 3 Seconds, No Calf Tenderness, Diminished Peripheral Pulses, Edema Skin: Ulcer/ Wound - No purulence, erythema, streaking, odor, infection. Significant peripheral callus is continued. His skin is hairless and atrophic. There is no visualized bone today Wound Measurements and Assessment WC - Nurse 1 - General Ulcer Measurement Start: 04/05/20 08:08 Freq: Status: Active Protocol: Activity Type Activity Date Activity User E-Sign Co-Sign Detail Recorded Client Recorded Date Recorded By Document 04/26/20 08:04 DL [id number] 04/26/20 08:12 DL 04/26/20 08:04 Wound Center Nurse 1 [Ulcer Assessment] 3-left posterior heel -Current Size (cm) - Length 1.2 -Current Size (cm) - Width 1 -Current Size (cm) - Depth 1.2 -Total Square Cm 1.2 -Photo Taken No -Maximum Distance #2 (cm) 1.4 -Circular Undermining Yes -Exudate Amt Medium -Exudate Type Serosanguineous -Wound Margin Thickened & Rolled Under -Granulation Amt Medium (34-66%) -Granulation Quality [place] -Necrosis Amt Medium (34-66%) -Necrotic Tissue Type Adherent Slough -Structure Exposed N/A -Texture (Emily-wound Skin Appearance) Callus,Scarring -Moisture (Emily-wound Skin Appearance Maceration ) -Color (Emily-wound Skin Appearance) No Abnormality -Temperature (Emily-wound Skin No Abnormality Appearance) (Pt Warm) -Tenderness on Palpation (Emily-wound No Skin Appearance) -Ulcer Cleansing Wound Cleanser -Foul Odor after Cleansing No -Anesthetic Used 4% Lidocaine Solution WC - Nurse 2 - General Ulcer CM Notes Start: 04/05/20 08:08 Freq: Status: Active Protocol: Activity Type Activity Date Activity User E-Sign Co-Sign Detail Recorded Client Recorded Date Recorded By Document 04/26/20 08:19 JF [id number] 04/26/20 08:31 GAGE 04/26/20 08:19 Wound Center Nurse 2 [Procedure/Treatment] -Time 08:19 -Correct Patient Yes -Correct Side, Site, Position Yes -Correct Procedure Yes -Procedure Performed Yes -Type of Procedure Debridement -Clinical Debridement Subcutaneous -Tissue Removed Subcutaneous -Post Debridement (cm) - Length 1.9 -Post Debridement (cm) - Width 1.5 -Post Debridement (cm) - Depth 0.5 -Total Square (Post) (cm) 2.85 -Area of Debridement (cm) - Length 1.9 -Area of Debridement (cm) - Width 1.5 -Total Square (Area) (cm) 2.85 -Tunneling No -Undermining/Tunneling No -Circular Undermining No -Wound/Ulcer Outcome Not Healed -Ulcer Cleansing Rinsed/ Irrigated with Saline -Foul Odor after Cleansing No -Bioengineered Tissue No -Bleeding Controlled with Pressure -Offloading Yes -Type of Offloading Knee Walker -Treatment Response Procedure Tolerated Well -Debridement - Subq, 1st 20sq cm Yes [See Physician Procedure note for Specifics] Pain Scale: 0-10 Numeric [Pain] -Is Patient Pain Free? Yes - Nurse 3 - General Ulcer D/C NN Start: 04/05/20 08:08 Freq: Status: Active Protocol: Activity Type Activity Date Activity User E-Sign Co-Sign Detail Recorded Client Recorded Date Recorded By Document 04/26/20 08:32 [id number] 04/26/20 08:33 GAGE 04/26/20 08:32 Wound Care Nurse 3 [Wound Dressing] 3-left posterior heel -Ulcer Cleansing Rinsed/ Irrigated with Saline -Foul Odor after Cleansing No -Primary Dressing Applied Aquacel AG 4x4 -Primary Dressing Covered/Secured Dry Gauze & with Roll Gauze, Secured with Tape -Aquacel AG 4x4 1 - Visit Discharge [Visit Discharge Information] -Discharge Condition Stable -Ambulatory Status Ambulatory, Walker -Transportation Private Auto -Medication Reconcilliation completed Yes & provided to patient/care provider -Clinical Summary of Care Provided Yes Musculoskeletal: No Tenderness to Palpation of Joints or Extremities, Muscle Wasting Neurological: - - Lack of normal epicritic sensation light touch is consistent with neuropathy status Psych/Mental Status: Normal Affect, Appropriate Debridement Note Post-Debridement Measurements/Treatment - Nurse 2 - General Ulcer CM Notes Start: 04/05/20 08:08 Freq: Status: Active Protocol: Activity Type Activity Date Activity User E-Sign Co-Sign Detail Recorded Client Recorded Date Recorded By Document 04/05/20 08:18 [id number] 04/05/20 08:20 Document 04/26/20 08:19 [id number] 04/26/20 08:31 04/05/20 04/26/20 08:18 08:19 Wound Center Nurse 2 3-left posterior heel -Time 08:19 08:19 -Correct Patient Yes Yes -Correct Side, Site, Position Yes Yes -Correct Procedure Yes Yes -Procedure Performed Yes Yes -Type of Procedure Debridement Debridement -Clinical Debridement Subcutaneous Subcutaneous -Tissue Removed Subcutaneous Subcutaneous -Post Debridement (cm) - Length 1.8 1.9 -Post Debridement (cm) - Width 1.4 1.5 -Post Debridement (cm) - Depth 0.7 0.5 -Total Square (Post) (cm) 2.52 2.85 -Area of Debridement (cm) - Length 1.8 1.9 -Area of Debridement (cm) - Width 1.4 1.5 -Total Square (Area) (cm) 2.52 2.85 -Tunneling No No -Undermining/Tunneling No No -Circular Undermining No No -Wound/Ulcer Outcome Not Healed Not Healed -Ulcer Cleansing Rinsed/ Rinsed/ Irrigated with Irrigated with Saline Saline -Foul Odor after Cleansing No No -Bioengineered Tissue No No -Bleeding Controlled with Pressure Pressure -Offloading Yes Yes -Type of Offloading Knee Walker Knee Walker -Treatment Response Procedure Procedure Tolerated Well Tolerated Well -Debridement - Subq, 1st 20sq cm Yes Yes Pain Scale: 0-10 Numeric Is Patient Pain Free? Yes Yes - Nurse 3 - General Ulcer D/C NN Start: 04/05/20 08:08 Freq: Status: Active Protocol: Activity Type Activity Date Activity User E-Sign Co-Sign Detail Recorded Client Recorded Date Recorded By Document 04/05/20 08:37 MT [id number] 04/05/20 08:39 DC Document 04/26/20 08:32 [id number] 04/26/20 08:33 04/05/20 04/26/20 08:37 08:32 Wound Care Nurse 3 3-left posterior heel -Ulcer Cleansing Rinsed/ Irrigated with Saline -Foul Odor after Cleansing No -Primary Dressing Applied Aquacel AG 2x2 Aquacel AG 4x4 -Primary Dressing Covered/Secured with Dry Gauze & Dry Gauze & Roll Gauze, Roll Gauze, Secured with Secured with Tape Tape -Aquacel AG 4x4 1 -Aquacel AG 2x2 1 Pain Scale: 0-10 Numeric Is Patient Pain Free? Yes - Visit Discharge Discharge Condition Stable Stable Ambulatory Status Walker Ambulatory, Walker Transportation Private Auto Private Auto Medication Reconcilliation completed & No Yes provided to patient/care provider Clinical Summary of Care Provided Yes Yes Wound debrided: plantar heel Laterality: Left Wound Grade/Stage: grade 3 Type of Debridement: Excisional debridement Anesthesia Used: 5% Lidocaine Gel Depth: in the subcutaneous layer Percentage of wound debrided: 100 Instrument Used: #15 blade Tissue Removed: fibrous, devitalized subcutaneous, biofilm, slough Severity: Fat Layer Exposed Amount of bleeding with debridement: Mild Bleeding Controlled with: Pressure Assessment/Plan Assessment: Left heel ulcer previous grade 3 ulcer status with osteomyelitis that has stabilized and looks clinically stable. Acute on chronic osteomyelitis left heel. Peripheral vascular disease with recent intervention performed. Diabetes with neuropathy. Malnutrition. Other comorbidities. Walking difficulty. Delayed healing. Inability to proceed with recommended treatments Plan: This patient was examined and evaluated today. Subcutaneous excisional debridement was performed as noted in the clinical panel to the plantar ulcer site. To continue washing his foot with Dial soap and water. It is imperative that he keep pressure off of this site. To change daily dressing with Aquacel Ag. His previous labs were reviewed and he did not demonstrate leukocytosis. He did have elevated C-reactive protein and an ESR of 66. His cultures demonstrate corynebacterium and MSSA is consistent with skin minerva. His C. difficile history is also noted. This will be monitored very close. An x-ray of his hindfoot to evaluate for any new osseous destruction was noted. He does have a prior diagnosis of osteomyelitis that was previously treated surgically and medically with IV antibiotics. He has a very large spur with proliferative calcification. This is consistent with biomechanical changes and osteomyelitis course. Is noted he previously had osteomyelitis in the same location and was treated medically for this. This previously excised bone was sent to both microbiology and pathology. This demonstrated osteomyelitis. He has been under the care of Dr. Luna and a 6-week course of oral Duricef and doxycycline is almost complete. He will follow-up with infectious disease as needed and appears to be responding well to his initial course. I also offered him an operating room debridement to aggressively excise this heel spur he does not want to proceed forward with this at this time. This may be necessary to get this prominent bone off of the friable skin that has been trying to heal. He completed the antibiotics and his undergoing wound care center debridements per his decision at this time. He was advised to continue knee roller use at home to aid with compliance. He certainly has many comorbidities and this makes him higher risk for infection and delayed healing. It is noted his noninvasive vascular studies were abnormal again and he has had previous lower extremity ulcers with significant delayed healing. He was advised to follow-up with Dr. Beck, vascular surgeon, as scheduled and advised. He has had prior intervention already. We also discussed the treatment option of hyperbaric oxygen therapy because he does have a grade 3 ulcer and prior diagnosis of osteomyelitis. He is not able to come to the wound care center on a daily basis and is not ready to commit to this process. The indications, planned application, anticipated healing time management and benefits and complications were discussed. We also discussed the treatment option of below-knee amputation previously because she is very fatigued by having to travel to the wound care center and he is having significant delays in healing. He is not interested in considering this option at this time. He refused nutritional referral. Coming to weekly or biweekly appointments is significantly difficult and is disrupting his daily life. He is amenable to coming to clinic every 3 weeks only. He is on a palliative care program however with his current status changes being monitored. He will consider moving to [place] with his family after COVID-19 pandemic stabilizes. 2020 macra entry-. Reviewed today: He denies falling within the past year. His medication allergy profile has been reconciled. Reviewed August 18, 2019: He is having a current smoking status and cessation intervention was advised. His blood pressure is 163/94 which is elevated. I recommend he follows up with his primary care physician due to associated risk factors. He is advised to maintain appropriate activity and diet as well. He does have an advanced care plan on file. His pneumococcal influenza immunization status was also reviewed.
== END 2020-04-26 23:59 ==
LOC: WC 08:00
PROVIDERS: Family Provider Family Medicine; PCP Family Medicine; Referring Provider Podiatrist; Visit Provider Podiatrist
DX: E11.621 Type 2 diabetes mellitus with foot ulcer (principal); E11.42 Type 2 diabetes mellitus with diabetic polyneuropathy; E11.51 Type 2 diabetes mellitus with diabetic peripheral angiopathy without gangrene; L97.422 Non-pressure chronic ulcer of left heel and midfoot with fat layer exposed; M86.672 Other chronic osteomyelitis, left ankle and foot; E11.69 Type 2 diabetes mellitus with other specified complication
CPT/HCPCS: 11042

== ENCOUNTER 2020-05-31 08:15 | Outpatient (RCR) | payer MEDICARE, SELFPAY ==
[2020-04-27 00:27] VITALS: BP 147/74; PULSE 74; RESP 20; TEMP 36.1
[2020-05-31 08:00] VITALS: BP 138/81; PULSE 73; RESP 18; TEMP 36.6; BMI 27.3
--- NOTE | 2020-05-31 08:24 | PCM.WC.PN ---
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 He has been through several rounds of antibiotics for recurrent bone infections. He denies odor, redness, warmth at this time. He is on a palliative care plan and would like to come in no more than once a month. More frequent visits are very disruptive to his life at this time and he is also concerned that coming into the clinical setting during the coronavirus pandemic. Progress of Wound: Plantar heel has stabilized and no local infection visualized today - Physical Exam Vital Signs Temp Pulse Resp BP 97.9 F 73 18 138/81 H 05/31/20 08:00 05/31/20 08:00 05/31/20 08:00 05/31/20 08:00 General: Alert, Oriented x3, Cooperative, No apparent distress Extremities: No cyanosis, Capillary Refill Less than 3 Seconds, No Calf Tenderness, Diminished Peripheral Pulses, Edema Skin: Ulcer/ Wound - No purulence, erythema, odor, probe to bone, no infection Wound Measurements and Assessment WC - Nurse 1 - General Ulcer Measurement Start: 05/31/20 08:00 Freq: Status: Active Protocol: Activity Type Activity Date Activity User E-Sign Co-Sign Detail Recorded Client Recorded Date Recorded By Document 05/31/20 08:00 DL [id number] 05/31/20 08:05 DL 05/31/20 08:00 Wound Center Nurse 1 [Ulcer Assessment] 3-left posterior heel -Current Size (cm) - Length 1.6 -Current Size (cm) - Width 1.2 -Current Size (cm) - Depth 1.2 -Total Square Cm 1.92 -Photo Taken No -Exudate Amt Small -Exudate Type Serosanguineous -Wound Margin Thickened & Rolled Under -Granulation Amt Medium (34-66%) -Granulation Quality Red -Necrosis Amt Medium (34-66%) -Necrotic Tissue Type Adherent Slough -Structure Exposed N/A -Texture (Emily-wound Skin Appearance) Callus,Scarring -Moisture (Emily-wound Skin Appearance Maceration ) -Color (Emily-wound Skin Appearance) No Abnormality -Tenderness on Palpation (Emily-wound No Skin Appearance) -Ulcer Cleansing Wound Cleanser WC - Nurse 2 - General Ulcer CM Notes Start: 05/31/20 08:00 Freq: Status: Active Protocol: Activity Type Activity Date Activity User E-Sign Co-Sign Detail Recorded Client Recorded Date Recorded By Document 05/31/20 08:11 GAGE [id number] 05/31/20 08:16 GAGE 05/31/20 08:11 Wound Center Nurse 2 [Procedure/Treatment] -Time 08:11 -Correct Patient Yes -Correct Side, Site, Position Yes -Correct Procedure Yes -Procedure Performed Yes -Type of Procedure Debridement -Clinical Debridement Subcutaneous -Tissue Removed Subcutaneous -Post Debridement (cm) - Length 1.5 -Post Debridement (cm) - Width 1.8 -Post Debridement (cm) - Depth 1.0 -Total Square (Post) (cm) 2.70 -Area of Debridement (cm) - Length 1.5 -Area of Debridement (cm) - Width 1.8 -Total Square (Area) (cm) 2.70 -Tunneling No -Undermining/Tunneling No -Circular Undermining No -Wound/Ulcer Outcome Not Healed -Foul Odor after Cleansing No -Bioengineered Tissue No -Bleeding Controlled with Pressure -Offloading Yes -Type of Offloading Knee Walker -Debridement - Subq, 1st 20sq cm Yes [See Physician Procedure note for Specifics] Pain Scale: 0-10 Numeric [Pain] -Is Patient Pain Free? Yes Musculoskeletal: Muscle Wasting Neurological: - - Lack of epicritic sensation to light touch Psych/Mental Status: Normal Affect, Appropriate Debridement Note Post-Debridement Measurements/Treatment - Nurse 2 - General Ulcer CM Notes Start: 05/31/20 08:00 Freq: Status: Active Protocol: Activity Type Activity Date Activity User E-Sign Co-Sign Detail Recorded Client Recorded Date Recorded By Document 05/31/20 08:11 GAGE [id number] 05/31/20 08:16 JF 05/31/20 08:11 Wound Center Nurse 2 3-left posterior heel -Time 08:11 -Correct Patient Yes -Correct Side, Site, Position Yes -Correct Procedure Yes -Procedure Performed Yes -Type of Procedure Debridement -Clinical Debridement Subcutaneous -Tissue Removed Subcutaneous -Post Debridement (cm) - Length 1.5 -Post Debridement (cm) - Width 1.8 -Post Debridement (cm) - Depth 1.0 -Total Square (Post) (cm) 2.70 -Area of Debridement (cm) - Length 1.5 -Area of Debridement (cm) - Width 1.8 -Total Square (Area) (cm) 2.70 -Tunneling No -Undermining/Tunneling No -Circular Undermining No -Wound/Ulcer Outcome Not Healed -Foul Odor after Cleansing No -Bioengineered Tissue No -Bleeding Controlled with Pressure -Offloading Yes -Type of Offloading Knee Walker -Debridement - Subq, 1st 20sq cm Yes Pain Scale: 0-10 Numeric Is Patient Pain Free? Yes Wound debrided: plantar heel Laterality: Left Wound Grade/Stage: grade 3 Type of Debridement: Excisional debridement Anesthesia Used: 5% Lidocaine Gel Depth: in the subcutaneous layer Percentage of wound debrided: 100 Instrument Used: #15 blade Tissue Removed: fibrous, devitalized subcutaneous, biofilm, slough Severity: Fat Layer Exposed Amount of bleeding with debridement: Mild Bleeding Controlled with: Pressure Patient tolerated procedure well Assessment/Plan Active Problems (Last Reviewed 09/15/19 @ 08:[address] 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 Acute on chronic osteomyelitis left heel. Peripheral vascular disease with recent intervention performed. Diabetes with neuropathy. Malnutrition. Other comorbidities. Walking difficulty. Delayed healing. Inability to proceed with recommended treatments Plan: This patient was examined and evaluated today. Subcutaneous excisional debridement was performed as noted in the clinical panel to the plantar ulcer site. To continue washing his foot with Dial soap and water. It is imperative that he keep pressure off of this site. To change daily dressing with [employer]. His previous labs were reviewed and he did not demonstrate leukocytosis. He did have elevated C-reactive protein and an ESR of 66. His cultures demonstrate corynebacterium and MSSA is consistent with skin minerva. His C. difficile history is also noted. This will be monitored very close. An x-ray of his hindfoot to evaluate for any new osseous destruction was noted. He does have a prior diagnosis of osteomyelitis that was previously treated surgically and medically with IV antibiotics. He has a very large spur with proliferative calcification. This is consistent with biomechanical changes and osteomyelitis course. Is noted he previously had osteomyelitis in the same location and was treated medically for this. This previously excised bone was sent to both microbiology and pathology. This demonstrated osteomyelitis. He has been under the care of Dr. Luna and a 6-week course of oral Duricef and doxycycline is almost complete. He will follow-up with infectious disease as needed and appears to be responding well to his initial course. I also offered him an operating room debridement to aggressively excise this heel spur he does not want to proceed forward with this at this time. This may be necessary to get this prominent bone off of the friable skin that has been trying to heal. He completed the antibiotics and his undergoing wound care center debridements per his decision at this time. He was advised to continue knee roller use at home to aid with compliance. He certainly has many comorbidities and this makes him higher risk for infection and delayed healing. It is noted his noninvasive vascular studies were abnormal again and he has had previous lower extremity ulcers with significant delayed healing. He was advised to follow-up with Dr. Beck, vascular surgeon, as scheduled and advised. He has had prior intervention already. We also discussed the treatment option of hyperbaric oxygen therapy because he does have a grade 3 ulcer and prior diagnosis of osteomyelitis. He is not able to come to the wound care center on a daily basis and is not ready to commit to this process. The indications, planned application, anticipated healing time management and benefits and complications were discussed. We also discussed the treatment option of below-knee amputation previously because she is very fatigued by having to travel to the wound care center and he is having significant delays in healing. He is not interested in considering this option at this time. He refused nutritional referral. Coming to weekly or biweekly appointments is significantly difficult and is disrupting his daily life. He is amenable to coming to clinic every 3 to 4 weeks only. He is on a palliative care program however with his current status changes being monitored. He will consider moving to [place] with his family after COVID-19 pandemic stabilizes. 2019 macra entry-. Reviewed today: He denies falling within the past year. His medication allergy profile has been reconciled. Reviewed August 18, 2019: He is having a current smoking status and cessation intervention was advised. His blood pressure is 163/94 which is elevated. I recommend he follows up with his primary care physician due to associated risk factors. He is advised to maintain appropriate activity and diet as well. He does have an advanced care plan on file. His pneumococcal influenza immunization status was also reviewed.
== END 2020-06-26 23:59 ==
LOC: WC 08:15
PROVIDERS: Family Provider Family Medicine; PCP Family Medicine; Referring Provider Podiatrist; Visit Provider Podiatrist
DX: E11.621 Type 2 diabetes mellitus with foot ulcer (principal); L97.426 Non-pressure chronic ulcer of left heel and midfoot with bone involvement without evidence of necrosis; E11.69 Type 2 diabetes mellitus with other specified complication; M86.172 Other acute osteomyelitis, left ankle and foot; M86.672 Other chronic osteomyelitis, left ankle and foot; E11.42 Type 2 diabetes mellitus with diabetic polyneuropathy; E11.51 Type 2 diabetes mellitus with diabetic peripheral angiopathy without gangrene; L97.526 Non-pressure chronic ulcer of other part of left foot with bone involvement without evidence of necrosis; Z79.84 Long term (current) use of oral hypoglycemic drugs; Z79.899 Other long term (current) drug therapy
CPT/HCPCS: 11042

== ENCOUNTER 2020-07-26 08:00 | Outpatient (RCR) | payer MEDICARE, SELFPAY ==
[2020-06-27 00:06] VITALS: BP 138/81; PULSE 73; RESP 18; TEMP 36.6
[2020-06-28 08:09] VITALS: BP 139/72; PULSE 77; RESP 20; TEMP 36.4; BMI 27.3
--- NOTE | 2020-06-28 10:56 | PN.PCM_ITS ---
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 He has a history of prior osteomyelitis and has completed medical and surgical intervention. He denies odor, redness, warmth. He is on a palliative care plan. Progress of Wound: Stable - Physical Exam Vital Signs Temp Pulse Resp BP 97.6 F L 77 20 H 139/72 H 06/28/20 08:09 06/28/20 08:09 06/28/20 08:09 06/28/20 08:09 General: Alert, Oriented x3, Cooperative, No apparent distress Extremities: No cyanosis, Capillary Refill Less than 3 Seconds, No Calf Tenderness, Diminished Peripheral Pulses, Edema Skin: Ulcer/ Wound - No purulence, erythema, string, odor, infection. The ulcer bed is granular with some fibrous tissue and some significant peripheral callus noted in deeper region to the posterior border. No distinct epiboli, - - Adjacent skin is hairless and atrophic. No erythema or purulence Wound Measurements and Assessment WC - Nurse 1 - General Ulcer Measurement Start: 06/28/20 08:09 Freq: Status: Active Protocol: Activity Type Activity Date Activity User E-Sign Co-Sign Detail Recorded Client Recorded Date Recorded By Document 06/28/20 08:09 DL [id number] 06/28/20 08:13 DL 06/28/20 08:09 Wound Center Nurse 1 [Ulcer Assessment] 3-left posterior heel -Current Size (cm) - Length 1.1 -Current Size (cm) - Width 1.4 -Current Size (cm) - Depth 0.8 -Total Square Cm 1.54 -Photo Taken No -Undermining/Tunneling Starts (O' 10 clock) -Undermining/Tunneling Ends (O'clock) 1 -Maximum Distance (cm) 0.6 -Exudate Amt Small -Wound Margin Thickened & Rolled Under -Granulation Amt Medium (34-66%) -Granulation Quality [place] -Necrosis Amt Medium (34-66%) -Necrotic Tissue Type Adherent Slough -Structure Exposed N/A -Texture (Emily-wound Skin Appearance) Callus -Moisture (Emily-wound Skin Appearance Maceration ) -Color (Emily-wound Skin Appearance) No Abnormality -Temperature (Eimly-wound Skin No Abnormality Appearance) (Pt Warm) -Tenderness on Palpation (Emily-wound No Skin Appearance) -Ulcer Cleansing Wound Cleanser -Foul Odor after Cleansing No -Anesthetic Used 4% Lidocaine Solution WC - Nurse 2 - General Ulcer CM Notes Start: 06/28/20 08:09 Freq: Status: Active Protocol: Activity Type Activity Date Activity User E-Sign Co-Sign Detail Recorded Client Recorded Date Recorded By Document 06/28/20 08:18 GAGE [id number] 06/28/20 08:24 GAGE 06/28/20 08:18 Wound Center Nurse 2 [Procedure/Treatment] -Time 08:19 -Correct Patient Yes -Correct Side, Site, Position Yes -Correct Procedure Yes -Procedure Performed Yes -Type of Procedure Debridement -Clinical Debridement Subcutaneous -Tissue Removed Subcutaneous -Post Debridement (cm) - Length 2.5 -Post Debridement (cm) - Width 2 -Post Debridement (cm) - Depth 1.2 -Total Square (Post) (cm) 5.0 -Area of Debridement (cm) - Length 2.5 -Area of Debridement (cm) - Width 2.0 -Total Square (Area) (cm) 5.00 -Tunneling No -Undermining/Tunneling No -Circular Undermining No -Wound/Ulcer Outcome Not Healed -Ulcer Cleansing Rinsed/ Irrigated with Saline -Foul Odor after Cleansing No -Bioengineered Tissue No -Bleeding Controlled with Pressure -Offloading Yes -Type of Offloading Knee Walker -Treatment Response Procedure Tolerated Well -Debridement - Subq, 1st 20sq cm Yes [See Physician Procedure note for Specifics] Pain Scale: 0-10 Numeric [Pain] -Is Patient Pain Free? Yes Musculoskeletal: No Tenderness to Palpation of Joints or Extremities, Muscle Wasting Neurological: - - Lack of normal epicritic sensation Psych/Mental Status: Normal Affect, Appropriate Debridement Note Post-Debridement Measurements/Treatment - Nurse 2 - General Ulcer CM Notes Start: 06/28/20 08:09 Freq: Status: Active Protocol: Activity Type Activity Date Activity User E-Sign Co-Sign Detail Recorded Client Recorded Date Recorded By Document 06/28/20 08:18 GAGE [id number] 06/28/20 08:24 JF 06/28/20 08:18 Wound Center Nurse 2 3-left posterior heel -Time 08:19 -Correct Patient Yes -Correct Side, Site, Position Yes -Correct Procedure Yes -Procedure Performed Yes -Type of Procedure Debridement -Clinical Debridement Subcutaneous -Tissue Removed Subcutaneous -Post Debridement (cm) - Length 2.5 -Post Debridement (cm) - Width 2 -Post Debridement (cm) - Depth 1.2 -Total Square (Post) (cm) 5.0 -Area of Debridement (cm) - Length 2.5 -Area of Debridement (cm) - Width 2.0 -Total Square (Area) (cm) 5.00 -Tunneling No -Undermining/Tunneling No -Circular Undermining No -Wound/Ulcer Outcome Not Healed -Ulcer Cleansing Rinsed/ Irrigated with Saline -Foul Odor after Cleansing No -Bioengineered Tissue No -Bleeding Controlled with Pressure -Offloading Yes -Type of Offloading Knee Walker -Treatment Response Procedure Tolerated Well -Debridement - Subq, 1st 20sq cm Yes Pain Scale: 0-10 Numeric Is Patient Pain Free? Yes Wound debrided: plantar heel Laterality: Left Wound Grade/Stage: grade 3 Type of Debridement: Excisional debridement Anesthesia Used: 5% Lidocaine Gel Depth: in the subcutaneous layer Percentage of wound debrided: 100 Instrument Used: #15 blade Tissue Removed: fibrous, devitalized subcutaneous, biofilm, slough Severity: Fat Layer Exposed Amount of bleeding with debridement: Mild Bleeding Controlled with: Pressure, Silver Nitrate Patient tolerated procedure well Assessment/Plan Active Problems (Last Reviewed 09/15/19 @ 08:[address] 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 Acute on chronic osteomyelitis left heel. Peripheral vascular disease with recent intervention performed. Diabetes with neuropathy. Malnutrition. Other comorbidities. Walking difficulty. Delayed healing. Inability to proceed with recommended treatments Plan: This patient was examined and evaluated today. Subcutaneous excisional debridement was performed as noted in the clinical panel to the plantar ulcer site. To continue washing his foot with Dial soap and water. It is imperative that he keep pressure off of this site. To change daily dressing with Aquacel Ag. His previous labs were reviewed and he did not demonstrate leukocytosis. He did have elevated C-reactive protein and an ESR of 66. His cultures demonstrate corynebacterium and MSSA is consistent with skin minerva. His C. difficile history is also noted. This will be monitored very close. An x-ray of his hindfoot to evaluate for any new osseous destruction was noted. He does have a prior diagnosis of osteomyelitis that was previously treated surgically and medically with IV antibiotics. He has a very large spur with proliferative calcification. This is consistent with biomechanical changes and osteomyelitis course. Is noted he previously had osteomyelitis in the same location and was treated medically for this. This previously excised bone was sent to both microbiology and pathology. He completed a course of antibiotics and was previously under the management of infectious disease as well. He does not have current local or systemic signs of illness. He was advised to continue knee roller use at home to aid with compliance. He certainly has many comorbidities and this makes him higher risk for infection and delayed healing. I have been notified by his home health nurse that he is walking around at home in his shoe. It is noted his noninvasive vascular studies were abnormal again and he has had previous lower extremity ulcers with significant delayed healing. He was advised to follow-up with Dr. Beck, vascular surgeon, as scheduled and advised. He has had prior intervention already. We also discussed the treatment option of hyperbaric oxygen therapy because he does have a grade 3 ulcer and prior diagnosis of osteomyelitis. He is not able to come to the wound care center on a daily basis and is not ready to commit to this process. The indications, planned application, anticipated healing time management and benefits and complications were discussed. We also discussed the treatment option of below-knee amputation previously because she is very fatigued by having to travel to the wound care center and he is having significant delays in healing. He is not interested in considering this option at this time. He refused nutritional referral. Coming to weekly or biweekly appointments is significantly difficult and is disrupting his daily life. He is amenable to coming to clinic every 3 to 4 weeks only. He is on a palliative care program [facility] with his current status changes being monitored. 2019 [facility]-. Reviewed today: He denies falling within the past year. His medication allergy profile has been reconciled. Reviewed August 18, 2019: He is having a current smoking status and cessation intervention was advised. His blood pressure is 163/94 which is elevated. I recommend he follows up with his primary care physician due to associated risk factors. He is advised to maintain appropriate activity and diet as well. He does have an advanced care plan on file. His pneumococcal influenza immunization status was also reviewed.
[2020-06-28 11:43] VITALS: BP 139/74
[2020-07-26 07:59] VITALS: BP 136/72; PULSE 93; TEMP 35.6; BMI 27.3
--- NOTE | 2020-07-26 10:59 | PCM.WC.PN ---
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 He has a history of prior osteomyelitis and has completed medical and surgical intervention. He denies odor, redness, warmth. He is on a palliative care plan. Progress of Wound: Stable - Physical Exam Vital Signs Temp Pulse Resp BP 96.0 F L 93 20 H 136/72 H 07/26/20 07:59 07/26/20 07:59 06/28/20 08:09 07/26/20 07:59 General: Alert, Oriented x3, Cooperative, No apparent distress HEENT: Atraumatic Extremities: No cyanosis, Capillary Refill Less than 3 Seconds, No Calf Tenderness, Diminished Peripheral Pulses, Edema Skin: Ulcer/ Wound - No purulence, erythema, string, odor, infection, necrosis. The base of the ulcer is granular and there is no adjacent tunneling or undermining today. Adjacent skin is hairless and atrophic Wound Measurements and Assessment WC - Nurse 1 - General Ulcer Measurement Start: 06/28/20 08:09 Freq: Status: Active Protocol: Activity Type Activity Date Activity User E-Sign Co-Sign Detail Recorded Client Recorded Date Recorded By Document 07/26/20 07:59 DL [id number] 07/26/20 08:02 DL 07/26/20 07:59 Wound Center Nurse 1 [Ulcer Assessment] 3-left posterior heel -Current Size (cm) - Length 1.4 -Current Size (cm) - Width 1.4 -Current Size (cm) - Depth 1 -Total Square Cm 1.96 -Undermining/Tunneling Starts (O' 10 clock) -Undermining/Tunneling Ends (O'clock) 4 -Maximum Distance (cm) 0.7 -Exudate Amt Small -Exudate Type Serosanguineous -Wound Margin Distinct, Outline Attached -Necrosis Amt Medium (34-66%) -Necrotic Tissue Type Adherent Slough -Texture (Emily-wound Skin Appearance) Assessed, Scarring -Moisture (Emily-wound Skin Appearance No Abnormality, ) Assessed -Color (Emily-wound Skin Appearance) No Abnormality, Assessed -Temperature (Emily-wound Skin No Abnormality Appearance) (Pt Warm) -Tenderness on Palpation (Emily-wound No Skin Appearance) -Ulcer Cleansing Rinsed/ Irrigated with Saline -Foul Odor after Cleansing No -Anesthetic Used 4% Lidocaine Solution FINA - Nurse 2 - General Ulcer CM Notes Start: 06/28/20 08:09 Freq: Status: Active Protocol: Activity Type Activity Date Activity User E-Sign Co-Sign Detail Recorded Client Recorded Date Recorded By Document 07/26/20 08:25 GAGE [id number] 07/26/20 08:29 GAGE 07/26/20 08:25 Wound Center Nurse 2 [Procedure/Treatment] -Time 08:25 -Correct Patient Yes -Correct Side, Site, Position Yes -Correct Procedure Yes -Procedure Performed Yes -Type of Procedure Debridement -Clinical Debridement Subcutaneous -Tissue Removed Subcutaneous -Post Debridement (cm) - Length 1.8 -Post Debridement (cm) - Width 2.4 -Post Debridement (cm) - Depth 1.2 -Total Square (Post) (cm) 4.32 -Area of Debridement (cm) - Length 1.8 -Area of Debridement (cm) - Width 2.4 -Total Square (Area) (cm) 4.32 -Tunneling No -Undermining/Tunneling No -Circular Undermining No -Wound/Ulcer Outcome Not Healed -Ulcer Cleansing Rinsed/ Irrigated with Saline -Foul Odor after Cleansing No -Bioengineered Tissue No -Bleeding Controlled with Pressure -Offloading Yes -Type of Offloading Knee Walker -Treatment Response Procedure Tolerated Well -Debridement - Subq, 1st 20sq cm Yes [See Physician Procedure note for Specifics] Pain Scale: 0-10 Numeric [Pain] -Is Patient Pain Free? Yes FINA - Nurse 3 - General Ulcer D/C NN Start: 06/28/20 08:09 Freq: Status: Active Protocol: Activity Type Activity Date Activity User E-Sign Co-Sign Detail Recorded Client Recorded Date Recorded By Document 07/26/20 08:33 DL [id number] 07/26/20 08:35 DL 07/26/20 08:33 Wound Care Nurse 3 [Wound Dressing] 3-left posterior heel -Ulcer Cleansing Rinsed/ Irrigated with Saline -Foul Odor after Cleansing No -Primary Dressing Applied Aquacel AG 2x2 -Primary Dressing Covered/Secured Dry Gauze & with Roll Gauze, Secured with Tape -Aquacel AG 2x2 1 [Post Procedure Tolerated] -Treatment Response Procedure Tolerated Well Pain Scale: 0-10 Numeric [Pain] -Is Patient Pain Free? Yes WC - Visit Discharge [Visit Discharge Information] -Discharge Condition Stable -Ambulatory Status Walker [Facility Notification] -Facility Type Home Health -Orders Sent Yes Musculoskeletal: No Tenderness to Palpation of Joints or Extremities, Muscle Wasting, - Neurological: - - Lack of normal epicritic sensation consistent with neuropathy Psych/Mental Status: Normal Affect, Appropriate Debridement Note Post-Debridement Measurements/Treatment - Nurse 2 - General Ulcer CM Notes Start: 06/28/20 08:09 Freq: Status: Active Protocol: Activity Type Activity Date Activity User E-Sign Co-Sign Detail Recorded Client Recorded Date Recorded By Document 06/28/20 08:18 JF [id number] 06/28/20 08:24 Document 07/26/20 08:25 JF [id number] 07/26/20 08:29 JF 06/28/20 07/26/20 08:18 08:25 Wound Center Nurse 2 3-left posterior heel -Time 08:19 08:25 -Correct Patient Yes Yes -Correct Side, Site, Position Yes Yes -Correct Procedure Yes Yes -Procedure Performed Yes Yes -Type of Procedure Debridement Debridement -Clinical Debridement Subcutaneous Subcutaneous -Tissue Removed Subcutaneous Subcutaneous -Post Debridement (cm) - Length 2.5 1.8 -Post Debridement (cm) - Width 2 2.4 -Post Debridement (cm) - Depth 1.2 1.2 -Total Square (Post) (cm) 5.0 4.32 -Area of Debridement (cm) - Length 2.5 1.8 -Area of Debridement (cm) - Width 2.0 2.4 -Total Square (Area) (cm) 5.00 4.32 -Tunneling No No -Undermining/Tunneling No No -Circular Undermining No No -Wound/Ulcer Outcome Not Healed Not Healed -Ulcer Cleansing Rinsed/ Rinsed/ Irrigated with Irrigated with Saline Saline -Foul Odor after Cleansing No No -Bioengineered Tissue No No -Bleeding Controlled with Pressure Pressure -Offloading Yes Yes -Type of Offloading Knee Walker Knee Walker -Treatment Response Procedure Procedure Tolerated Well Tolerated Well -Debridement - Subq, 1st 20sq cm Yes Yes Pain Scale: 0-10 Numeric Is Patient Pain Free? Yes Yes - Nurse 3 - General Ulcer D/C NN Start: 06/28/20 08:09 Freq: Status: Active Protocol: Activity Type Activity Date Activity User E-Sign Co-Sign Detail Recorded Client Recorded Date Recorded By Document 06/28/20 11:43 RB [id number] 06/28/20 11:44 RB Document 07/26/20 08:33 DL [id number] 07/26/20 08:35 DL 06/28/20 07/26/20 11:43 08:33 Wound Care Nurse 3 3-left posterior heel -Ulcer Cleansing Rinsed/ Irrigated with Saline -Foul Odor after Cleansing No -Primary Dressing Applied Aquacel AG 4x4 Aquacel AG 2x2 -Primary Dressing Covered/Secured with Dry Gauze,Dry Dry Gauze & Gauze & Roll Roll Gauze, Gauze,Secured Secured with with Tape Tape -Aquacel AG 4x4 1 -Aquacel AG 2x2 1 Treatment Response Procedure Tolerated Well Vital Signs Blood Pressure (90/60-120/80) 139/74 H Blood Pressure Mean (mm Hg) 95 Source Monitor Position Semi-Fowlers Blood Pressure Location Left Arm Pain Scale: 0-10 Numeric Is Patient Pain Free? Yes Yes WC - Visit Discharge Discharge Condition Stable Stable Ambulatory Status Walker Transportation Private Auto Medication Reconcilliation completed & No provided to patient/care provider Clinical Summary of Care Provided Yes Facility Type Home Health Orders Sent Yes Wound debrided: plantar heel Laterality: Left Wound Grade/Stage: grade 3 Type of Debridement: Excisional debridement Anesthesia Used: 5% Lidocaine Gel Depth: in the subcutaneous layer Percentage of wound debrided: 100 Instrument Used: #15 blade Tissue Removed: fibrous, devitalized subcutaneous, biofilm, slough Severity: Fat Layer Exposed Amount of bleeding with debridement: Mild Bleeding Controlled with: Pressure Patient tolerated procedure well Assessment/Plan Active Problems (Last Reviewed 09/15/19 @ 08:[address] 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 Acute on chronic osteomyelitis left heel. Peripheral vascular disease with recent intervention performed. Diabetes with neuropathy. Malnutrition. Other comorbidities. Walking difficulty. Delayed healing. Inability to proceed with recommended treatments Plan: This patient was examined and evaluated today. Subcutaneous excisional debridement was performed as noted in the clinical panel to the plantar ulcer site. To continue washing his foot with Dial soap and water. It is imperative that he keep pressure off of this site. To change daily dressing with Aquacel Ag. His previous labs were reviewed and he did not demonstrate leukocytosis. He did have elevated C-reactive protein and an ESR of 66. His cultures demonstrate corynebacterium and MSSA is consistent with skin minerva. His C. difficile history is also noted. This will be monitored very close. An x-ray of his hindfoot to evaluate for any new osseous destruction was noted. He does have a prior diagnosis of osteomyelitis that was previously treated surgically and medically with IV antibiotics. He has a very large spur with proliferative calcification. This is consistent with biomechanical changes and osteomyelitis course. Is noted he previously had osteomyelitis in the same location and was treated medically for this. This previously excised bone was sent to both microbiology and pathology. He completed a course of antibiotics and was previously under the management of infectious disease as well. He does not have current local or systemic signs of illness. He was advised to continue knee roller use at home to aid with compliance. He certainly has many comorbidities and this makes him higher risk for infection and delayed healing. I have been notified by his home health nurse that he is walking around at home in his shoe. It is noted his noninvasive vascular studies were abnormal again and he has had previous lower extremity ulcers with significant delayed healing. He was advised to follow-up with Dr. Beck, vascular surgeon, as scheduled and advised. He has had prior intervention already. We also discussed the treatment option of hyperbaric oxygen therapy because he does have a grade 3 ulcer and prior diagnosis of osteomyelitis. He is not able to come to the wound care center on a daily basis and is not ready to commit to this process. The indications, planned application, anticipated healing time management and benefits and complications were discussed. We also discussed the treatment option of below-knee amputation previously because she is very fatigued by having to travel to the wound care center and he is having significant delays in healing. He is not interested in considering this option at this time. He refused nutritional referral. Coming to weekly or biweekly appointments is significantly difficult and is disrupting his daily life. He is amenable to coming to clinic every 3 to 4 weeks only. He is on a palliative care program however with his current status changes being monitored. 2019 [facility] entry-. Reviewed today: He denies falling within the past year. His medication allergy profile has been reconciled. Reviewed August 18, 2019: He is having a current smoking status and cessation intervention was advised. His blood pressure is 163/94 which is elevated. I recommend he follows up with his primary care physician due to associated risk factors. He is advised to maintain appropriate activity and diet as well. He does have an advanced care plan on file. His pneumococcal influenza immunization status was also reviewed.
== END 2020-07-27 23:59 ==
LOC: WC 08:00
PROVIDERS: Family Provider Family Medicine; PCP Family Medicine; Referring Provider Podiatrist; Visit Provider Podiatrist
DX: E11.621 Type 2 diabetes mellitus with foot ulcer (principal); L97.426 Non-pressure chronic ulcer of left heel and midfoot with bone involvement without evidence of necrosis; E11.51 Type 2 diabetes mellitus with diabetic peripheral angiopathy without gangrene; E11.42 Type 2 diabetes mellitus with diabetic polyneuropathy; R79.82 Elevated C-reactive protein (CRP); R26.2 Difficulty in walking, not elsewhere classified; Z79.84 Long term (current) use of oral hypoglycemic drugs; Z79.82 Long term (current) use of aspirin; Z79.899 Other long term (current) drug therapy
CPT/HCPCS: 11042

== ENCOUNTER → 2020-08-07 11:24 | Outpatient (CLI) | payer MEDICARE, SELFPAY ==
[2020-07-26 07:59] VITALS: BMI 27.3
[2020-08-07 15:25] LABS: Absolute Lymphocyte Count 1.59 X10^3/uL (0.83-4.51); Absolute Neutrophil Count 7.7 X10^3/uL (2.0-7.7); Basophil# 0.03 X10^3/uL; Basophil% 0.3 % (0-1); Eosinophil# 0.14 X10^3/uL; Eosinophils% 1.3 % (0-5); Hematocrit 38.3 % (40-54); Hemoglobin 12.6 g/dL (13.0-16.5); Lymphocyte # 1.59 X10^3/ul (4.0); Lymphocyte % 15.2 % (19-41); Mean Corp Hgb Conc 32.9 g/dL (32-36); Mean Corpuscular Hgb 29.7 pg (27.0-32.0); Mean Corpuscular Volume 90.3 fL (80-94); Mean Platelet Vol. 9.9 fl (6.2-12.0); Monocyte% 9.5 % (0-10); NRBC Flagged by Analyzer 0 % (0-5); Neutrophil # 7.65 X10^3/uL (2.7-7.7); Platelet Count 225 K/mm3 (150-450); RBC Distribution Width CV 13.8 % (11.6-14.6); RBC Distribution Width SD 45.3 fl (35.1-43.9); Red Blood Count 4.24 M/mm3 (4.6-6.2); White Blood Count 10.5 K/mm3 (4.4-11.0)
[2020-08-07 15:49] LABS: AST(SGOT) 12 U/L (15-37); Alanine Aminotransfer ALT/SGPT 30 U/L (16-61); Albumin, Serum 3.8 g/dL (3.2-5.0); Alkaline Phosphatase 89 U/L (45-117); Anion Gap 7 (5-15); BUN 13 mg/dL (7-18); BUN/Creat Ratio 14.8 RATIO (10-20); Calcium,Total 9.4 mg/dL (8.5-10.1); Chloride 99 mmol/L (98-107); Cholesterol 188 mg/dL (200); Creatinine, Serum 0.88 mg/dL (0.70-1.30); EST Glomerular Filtration Rate 90 mL/min (>60); Est Glom Filt Rate - Afr Amer 109 mL/min (>60); Glucose 179 mg/dL (74-106); High Density Lipoprotein 62 mg/dL; Potassium 4.1 mmol/L (3.5-5.1); Protein, Total 7.8 g/dL (6.4-8.2); Sodium Level 135 mmol/L (136-145); Thyroid Stim Hormone (TSH) 0.67 uIU/mL (0.358-3.74); Triglycerides 114 mg/dL; Very Low Density Lipoprotein 23 mg/dL (5-40)
[2020-08-08 09:38] LABS: Iron 43 ug/dL (65-175)
== END ==
PROVIDERS: PCP Family Medicine; Visit Provider Family Medicine
DX: E11.9 Type 2 diabetes mellitus without complications (principal); I10 Essential (primary) hypertension; E78.5 Hyperlipidemia, unspecified; D64.9 Anemia, unspecified
CPT/HCPCS: 36415; 80053; 80061; 83540; 84443; 85025

== ENCOUNTER 2020-08-23 08:36 | Outpatient (RCR) | payer MEDICARE, SELFPAY ==
[2020-07-28 00:09] VITALS: BP 136/72; PULSE 93; RESP 20; TEMP 35.6
[2020-08-23 08:45] VITALS: BP 195/96; PULSE 71; RESP 18; TEMP 36.3; BMI 27.3
--- NOTE | 2020-08-23 10:38 | PN.PCM_ITS ---
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 Code(s): L97.526 - Non-pressure chronic ulcer of other part of left foot with bone involvement without evidence of necrosis (3) Osteomyelitis of left foot Status: Chronic Code(s): M86.9 - Osteomyelitis, unspecified (4) Type 2 diabetes mellitus with diabetic polyneuropathy Status: Chronic Code(s): E11.42 - Type 2 diabetes mellitus with diabetic polyneuropathy (5) Achilles rupture, left Status: Chronic Qualifiers: Code(s): S86.012A - Strain of left Achilles tendon, initial encounter (6) Delayed wound healing Status: Chronic Code(s): T14.8XXD - Other injury of unspecified body region, subsequent encounter (7) Malnutrition Status: Chronic Code(s): E46 - Unspecified protein-calorie malnutrition Type of Wound Date of Service: 08/23/20 Chief Complaint: Left heel ulcer History of Wound: This 75-year-old male with multiple comorbidities was seen today for left plantar heel ulcer. He has a history of prior osteomyelitis and has completed medical and surgical intervention. He denies odor, redness, warmth. He is on a palliative care plan. He denies any pedal complaints today. Progress of Wound: Stable - Physical Exam Vital Signs Temp Pulse Resp BP 97.4 F L 71 18 195/96 H 08/23/20 08:45 08/23/20 08:45 08/23/20 08:45 08/23/20 08:45 General: Alert, Oriented x3, Cooperative, No apparent distress Extremities: No cyanosis, Capillary Refill Less than 3 Seconds, No Calf Tenderness, Diminished Peripheral Pulses, Edema Skin: Ulcer/ Wound - No purulence, erythema, streaking, odor, infection. Wound Measurements and Assessment WC - Nurse 1 - General Ulcer Measurement Start: 08/23/20 08:45 Freq: Status: Active Protocol: Activity Type Activity Date Activity User E-Sign Co-Sign Detail Recorded Client Recorded Date Recorded By Document 08/23/20 08:45 DL [id number] 08/23/20 08:50 DL 08/23/20 08:45 Wound Center Nurse 1 [Ulcer Assessment] 3-left posterior heel -Combined with other wound No -Current Size (cm) - Length 1.2 -Current Size (cm) - Width 1.5 -Current Size (cm) - Depth 1.4 -Total Square Cm 1.80 -Tunneling No -Undermining/Tunneling Yes -Undermining/Tunneling Starts (O' 9 clock) -Undermining/Tunneling Ends (O'clock) 3 -Maximum Distance (cm) 1 -Circular Undermining No -Exudate Amt Small -Exudate Type Serosanguineous -Wound Margin Thickened & Rolled Under -Granulation Amt Medium (34-66%) -Granulation Quality [place] -Slough/Fibrin Yes -Necrosis Amt Medium (34-66%) -Necrotic Tissue Type Adherent Slough -Structure Exposed N/A -Texture (Emily-wound Skin Appearance) Callus -Moisture (Emily-wound Skin Appearance Maceration ) -Color (Emily-wound Skin Appearance) Assessed -Temperature (Emily-wound Skin No Abnormality Appearance) (Pt Warm) -Tenderness on Palpation (Emily-wound No Skin Appearance) -Ulcer Cleansing Wound Cleanser -Foul Odor after Cleansing No -Anesthetic Used 4% Lidocaine Solution WC - Nurse 2 - General Ulcer CM Notes Start: 08/23/20 08:45 Freq: Status: Active Protocol: Activity Type Activity Date Activity User E-Sign Co-Sign Detail Recorded Client Recorded Date Recorded By Document 08/23/20 09:12 GAGE [id number] 08/23/20 09:18 GAGE 08/23/20 09:12 Wound Center Nurse 2 [Procedure/Treatment] -Time 09:12 -Correct Patient Yes -Correct Side, Site, Position Yes -Correct Procedure Yes -Procedure Performed Yes -Type of Procedure Debridement -Clinical Debridement Subcutaneous -Tissue Removed Subcutaneous -Post Debridement (cm) - Length 1.5 -Post Debridement (cm) - Width 1.8 -Post Debridement (cm) - Depth 1 -Total Square (Post) (cm) 2.70 -Area of Debridement (cm) - Length 1.5 -Area of Debridement (cm) - Width 1.8 -Total Square (Area) (cm) 2.70 -Tunneling No -Undermining/Tunneling No -Circular Undermining No -Wound/Ulcer Outcome Not Healed -Ulcer Cleansing Rinsed/ Irrigated with Saline -Foul Odor after Cleansing No -Bioengineered Tissue No -Bleeding Controlled with Pressure -Offloading Yes -Type of Offloading Surgical Shoe -Treatment Response Procedure Tolerated Well -Debridement - Subq, 1st 20sq cm Yes [See Physician Procedure note for Specifics] Pain Scale: 0-10 Numeric [Pain] -Is Patient Pain Free? Yes Musculoskeletal: No Tenderness to Palpation of Joints or Extremities, Muscle Wasting Neurological: - - Lack of normal epicritic sensation light touch is consistent with neuropathy status Psych/Mental Status: Normal Affect, Appropriate Debridement Note Post-Debridement Measurements/Treatment WC - Nurse 2 - General Ulcer CM Notes Start: 08/23/20 08:45 Freq: Status: Active Protocol: Activity Type Activity Date Activity User E-Sign Co-Sign Detail Recorded Client Recorded Date Recorded By Document 08/23/20 09:12 GAGE [id number] 08/23/20 09:18 GAGE 08/23/20 09:12 Wound Center Nurse 2 3-left posterior heel -Time 09:12 -Correct Patient Yes -Correct Side, Site, Position Yes -Correct Procedure Yes -Procedure Performed Yes -Type of Procedure Debridement -Clinical Debridement Subcutaneous -Tissue Removed Subcutaneous -Post Debridement (cm) - Length 1.5 -Post Debridement (cm) - Width 1.8 -Post Debridement (cm) - Depth 1 -Total Square (Post) (cm) 2.70 -Area of Debridement (cm) - Length 1.5 -Area of Debridement (cm) - Width 1.8 -Total Square (Area) (cm) 2.70 -Tunneling No -Undermining/Tunneling No -Circular Undermining No -Wound/Ulcer Outcome Not Healed -Ulcer Cleansing Rinsed/ Irrigated with Saline -Foul Odor after Cleansing No -Bioengineered Tissue No -Bleeding Controlled with Pressure -Offloading Yes -Type of Offloading Surgical Shoe -Treatment Response Procedure Tolerated Well -Debridement - Subq, 1st 20sq cm Yes Pain Scale: 0-10 Numeric Is Patient Pain Free? Yes Wound debrided: plantar hallux Laterality: Left Wound Grade/Stage: grade 3 Type of Debridement: Excisional debridement Anesthesia Used: 5% Lidocaine Gel Depth: in the subcutaneous layer Percentage of wound debrided: 100 Instrument Used: #15 blade Tissue Removed: fibrous, devitalized subcutaneous, biofilm, slough Severity: Fat Layer Exposed Amount of bleeding with debridement: Mild Bleeding Controlled with: Compression and gauze No debridement was completed today Assessment/Plan Active Problems (Last Reviewed 09/15/19 @ 08:[address] 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 Acute on chronic osteomyelitis left heel that has already been treated surgically and medically. Peripheral vascular disease with recent intervention performed. Diabetes with neuropathy. Malnutrition. Other comorbidities. Walking difficulty. Delayed healing. Inability to proceed with recommended treatments Plan: This patient was examined and evaluated today. Subcutaneous excisional debridement was performed as noted in the clinical panel to the plantar ulcer site. To continue washing his foot with Dial soap and water. It is imperative that he keep pressure off of this site. To change daily dressing with Aquacel Ag. His previous labs were reviewed and he did not demonstrate leukocytosis. He did have elevated C-reactive protein and an ESR of 66. His cultures demonstrate corynebacterium and MSSA is consistent with skin minerva. His C. difficile history is also noted. This will be monitored very close. An x-ray of his hindfoot to evaluate for any new osseous destruction was noted. He does have a prior diagnosis of osteomyelitis that was previously treated surgically and medically with IV antibiotics. He has a very large spur with proliferative calcification. This is consistent with biomechanical changes and osteomyelitis course. It is noted he previously had osteomyelitis in the same location and was treated medically for this. This previously excised bone was sent to both microbiology and pathology. He completed a course of antibiotics and was previously under the management of infectious disease as well. He does not have current local or systemic signs of illness. He was advised to continue knee roller use at home to aid with compliance. He certainly has many comorbidities and this makes him higher risk for infection and delayed healing. I have been notified by his home health nurse that he is walking around at home in his shoe. It is noted his noninvasive vascular studies were abnormal again and he has had previous lower extremity ulcers with significant delayed healing. He was advised to follow-up with Dr. Beck, vascular surgeon, as scheduled and advised. He has had prior intervention already. We also discussed the treatment option of hyperbaric oxygen therapy because he does have a grade 3 ulcer and prior diagnosis of osteomyelitis. He is not able to come to the wound care center on a daily basis and is not ready to commit to this process. The indications, planned application, anticipated healing time management and benefits and complications were discussed. We also discussed the treatment option of below-knee amputation previously because she is very fatigued by having to travel to the wound care center and he is having significant delays in healing. He is not interested in considering this option at this time. He refused nutritional referral. Coming to weekly or biweekly appointments is significantly difficult and is disrupting his daily life. He is amenable to coming to clinic every 3 to 4 weeks only. He is on a palliative care program at this time. Note: [employer] speech recognition adjunct lecturer software was used to create portions of this document. Sound-alike and misspelled words, as well as other adjunct lecturer errors may be contained in the documentation.
== END 2020-08-27 23:59 ==
LOC: WC 08:36
PROVIDERS: Family Provider Family Medicine; PCP Family Medicine; Referring Provider Podiatrist; Visit Provider Podiatrist
DX: E11.621 Type 2 diabetes mellitus with foot ulcer (principal); L97.522 Non-pressure chronic ulcer of other part of left foot with fat layer exposed; E11.69 Type 2 diabetes mellitus with other specified complication; E11.51 Type 2 diabetes mellitus with diabetic peripheral angiopathy without gangrene; E11.42 Type 2 diabetes mellitus with diabetic polyneuropathy; S86.012S Strain of left Achilles tendon, sequela; X58.XXXS Exposure to other specified factors, sequela; R26.2 Difficulty in walking, not elsewhere classified; Z79.84 Long term (current) use of oral hypoglycemic drugs; Z79.82 Long term (current) use of aspirin; Z79.899 Other long term (current) drug therapy
CPT/HCPCS: 11042

== ENCOUNTER 2020-09-20 08:00 | Outpatient (RCR) | payer MEDICARE, SELFPAY ==
[2020-08-28 00:13] VITALS: BP 195/96; PULSE 71; RESP 18; TEMP 36.3
[2020-09-20 08:05] VITALS: BP 159/87; PULSE 74; RESP 20; TEMP 36; BMI 27.3
--- NOTE | 2020-09-20 09:16 | PCM.WC.PN ---
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 Status: Chronic Code(s): L97.526 - Non-pressure chronic ulcer of other part of left foot with bone involvement without evidence of necrosis (2) PVD (peripheral vascular disease) Status: Chronic Code(s): I73.9 - Peripheral vascular disease, unspecified (3) Type 2 diabetes mellitus with diabetic polyneuropathy Status: Chronic Code(s): E11.42 - Type 2 diabetes mellitus with diabetic polyneuropathy (4) Achilles rupture, left Status: Chronic Qualifiers: Code(s): S86.012A - Strain of left Achilles tendon, initial encounter (5) Delayed wound healing Status: Chronic Code(s): T14.8XXD - Other injury of unspecified body region, subsequent encounter Type of Wound Date of Service: 09/20/20 Chief Complaint: Left heel ulcer History of Wound: This 75-year-old male with multiple comorbidities was seen today for left plantar heel ulcer. He has a history of prior osteomyelitis and has completed medical and surgical intervention. He denies odor, redness, warmth. He is on a palliative care plan. He denies any pedal complaints today. He is on a palliative care program. Progress of Wound: Stable - Physical Exam Vital Signs Temp Pulse Resp BP 96.8 F L 74 20 H 159/87 H 09/20/20 08:05 09/20/20 08:05 09/20/20 08:05 09/20/20 08:05 General: Alert, Oriented x3, Cooperative, No apparent distress Extremities: No cyanosis, No edema, Capillary Refill Less than 3 Seconds, No Calf Tenderness, Diminished Peripheral Pulses, - - Calcaneus style gait position Skin: Ulcer/ Wound - No purulence, erythema, streaking, odor, infection. Peripheral calluses significant Wound Measurements and Assessment WC - Nurse 1 - General Ulcer Measurement Start: 09/20/20 08:05 Freq: Status: Active Protocol: Activity Type Activity Date Activity User E-Sign Co-Sign Detail Recorded Client Recorded Date Recorded By Document 09/20/20 08:05 DL [id number] 09/20/20 08:13 DL 09/20/20 08:05 Wound Center Nurse 1 [Ulcer Assessment] 3-left posterior heel -Current Size (cm) - Length 1.5 -Current Size (cm) - Width 1.8 -Current Size (cm) - Depth 1.3 -Total Square Cm 2.70 -Undermining/Tunneling Starts (O' 7 clock) -Undermining/Tunneling Ends (O'clock) 5 -Maximum Distance (cm) 1 -Exudate Amt Medium -Exudate Type Serosanguineous -Wound Margin Thickened & Rolled Under -Granulation Amt Medium (34-66%) -Granulation Quality Red -Necrosis Amt Medium (34-66%) -Necrotic Tissue Type Adherent Slough -Structure Exposed N/A -Texture (Emily-wound Skin Appearance) Callus,Scarring -Moisture (Emily-wound Skin Appearance Maceration ) -Color (Emily-wound Skin Appearance) No Abnormality -Temperature (Emily-wound Skin No Abnormality Appearance) (Pt Warm) -Tenderness on Palpation (Emily-wound No Skin Appearance) -Ulcer Cleansing Wound Cleanser -Foul Odor after Cleansing No -Anesthetic Used 4% Lidocaine Solution WC - Nurse 2 - General Ulcer CM Notes Start: 09/20/20 08:05 Freq: Status: Active Protocol: Activity Type Activity Date Activity User E-Sign Co-Sign Detail Recorded Client Recorded Date Recorded By Document 09/20/20 08:23 GAGE [id number] 09/20/20 08:27 GAGE 09/20/20 08:23 Wound Center Nurse 2 [Procedure/Treatment] -Time 08:23 -Correct Patient Yes -Correct Side, Site, Position Yes -Correct Procedure Yes -Procedure Performed Yes -Type of Procedure Debridement -Clinical Debridement Subcutaneous -Tissue Removed Subcutaneous -Post Debridement (cm) - Length 2.1 -Post Debridement (cm) - Width 1.9 -Post Debridement (cm) - Depth 1.3 -Total Square (Post) (cm) 3.99 -Area of Debridement (cm) - Length 2.1 -Area of Debridement (cm) - Width 1.9 -Total Square (Area) (cm) 3.99 -Tunneling No -Undermining/Tunneling No -Circular Undermining No -Wound/Ulcer Outcome Not Healed -Ulcer Cleansing Rinsed/ Irrigated with Saline -Foul Odor after Cleansing No -Bioengineered Tissue No -Bleeding Controlled with Pressure -Offloading Yes -Type of Offloading Knee Walker -Treatment Response Procedure Tolerated Well -Debridement - Subq, 1st 20sq cm Yes [See Physician Procedure note for Specifics] Pain Scale: 0-10 Numeric [Pain] -Is Patient Pain Free? Yes - Nurse 3 - General Ulcer D/C NN Start: 09/20/20 08:05 Freq: Status: Active Protocol: Activity Type Activity Date Activity User E-Sign Co-Sign Detail Recorded Client Recorded Date Recorded By Document 09/20/20 08:31 DL [id number] 09/20/20 08:33 DL 09/20/20 08:31 Wound Care Nurse 3 [Wound Dressing] 3-left posterior heel -Ulcer Cleansing Wound Cleanser -Foul Odor after Cleansing No -Primary Dressing Applied Aquacel AG 4x4 -Primary Dressing Covered/Secured Dry Gauze & with Roll Gauze, Secured with Tape -Aquacel AG 4x4 1 [Post Procedure Tolerated] -Treatment Response Procedure Tolerated Well Pain Scale: 0-10 Numeric [Pain] -Is Patient Pain Free? Yes - Visit Discharge [Visit Discharge Information] -Discharge Condition Stable -Ambulatory Status Ambulatory -Transportation Private Auto [Facility Notification] -Facility Type Home Health -Orders Sent Yes Musculoskeletal: No Tenderness to Palpation of Joints or Extremities, Muscle Wasting Neurological: - - Lack of normal epicritic sensation light touch is consistent with neuropathic status Psych/Mental Status: Normal Affect, Appropriate Debridement Note Post-Debridement Measurements/Treatment WC - Nurse 2 - General Ulcer CM Notes Start: 09/20/20 08:05 Freq: Status: Active Protocol: Activity Type Activity Date Activity User E-Sign Co-Sign Detail Recorded Client Recorded Date Recorded By Document 09/20/20 08:23 GAGE [id number] 09/20/20 08:27 GAGE 09/20/20 08:23 Wound Center Nurse 2 3-left posterior heel -Time 08:23 -Correct Patient Yes -Correct Side, Site, Position Yes -Correct Procedure Yes -Procedure Performed Yes -Type of Procedure Debridement -Clinical Debridement Subcutaneous -Tissue Removed Subcutaneous -Post Debridement (cm) - Length 2.1 -Post Debridement (cm) - Width 1.9 -Post Debridement (cm) - Depth 1.3 -Total Square (Post) (cm) 3.99 -Area of Debridement (cm) - Length 2.1 -Area of Debridement (cm) - Width 1.9 -Total Square (Area) (cm) 3.99 -Tunneling No -Undermining/Tunneling No -Circular Undermining No -Wound/Ulcer Outcome Not Healed -Ulcer Cleansing Rinsed/ Irrigated with Saline -Foul Odor after Cleansing No -Bioengineered Tissue No -Bleeding Controlled with Pressure -Offloading Yes -Type of Offloading Knee Walker -Treatment Response Procedure Tolerated Well -Debridement - Subq, 1st 20sq cm Yes Pain Scale: 0-10 Numeric Is Patient Pain Free? Yes - Nurse 3 - General Ulcer D/C NN Start: 09/20/20 08:05 Freq: Status: Active Protocol: Activity Type Activity Date Activity User E-Sign Co-Sign Detail Recorded Client Recorded Date Recorded By Document 09/20/20 08:31 DL [id number] 09/20/20 08:33 DL 09/20/20 08:31 Wound Care Nurse 3 3-left posterior heel -Ulcer Cleansing Wound Cleanser -Foul Odor after Cleansing No -Primary Dressing Applied Aquacel AG 4x4 -Primary Dressing Covered/Secured with Dry Gauze & Roll Gauze, Secured with Tape -Aquacel AG 4x4 1 Treatment Response Procedure Tolerated Well Pain Scale: 0-10 Numeric Is Patient Pain Free? Yes WC - Visit Discharge Discharge Condition Stable Ambulatory Status Ambulatory Transportation Private [facility] Facility Type Home Health Orders Sent Yes Wound debrided: plantar heel Laterality: Left Wound Grade/Stage: grade 3 Type of Debridement: Excisional debridement Anesthesia Used: 5% Lidocaine Gel Depth: in the subcutaneous layer Percentage of wound debrided: 100 Instrument Used: #15 blade Tissue Removed: fibrous, devitalized subcutaneous, biofilm, slough Severity: Fat Layer Exposed Amount of bleeding with debridement: Mild Bleeding Controlled with: Pressure Patient tolerated procedure well Assessment/Plan Active Problems (Last Reviewed 09/15/19 @ 08:[address] 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 Acute on chronic osteomyelitis left heel that has already been treated surgically and medically. Peripheral vascular disease with recent intervention performed. Diabetes with neuropathy. Malnutrition. Other comorbidities. Walking difficulty. Delayed healing. Inability to proceed with recommended treatments Plan: This patient was examined and evaluated today. Subcutaneous excisional debridement was performed as noted in the clinical panel to the plantar ulcer site. To continue washing his foot with Dial soap and water. It is imperative that he keep pressure off of this site. To change daily dressing with Aquacel Ag. His previous labs were reviewed and he did not demonstrate leukocytosis. He did have elevated C-reactive protein and an ESR of 66. His cultures demonstrate corynebacterium and MSSA is consistent with skin minerva. His C. difficile history is also noted. This will be monitored very close. An x-ray of his hindfoot to evaluate for any new osseous destruction was noted. He does have a prior diagnosis of osteomyelitis that was previously treated surgically and medically with IV antibiotics. He has a very large spur with proliferative calcification. This is consistent with biomechanical changes and osteomyelitis course. It is noted he previously had osteomyelitis in the same location and was treated medically for this. This previously excised bone was sent to both microbiology and pathology. He completed a course of antibiotics and was previously under the management of infectious disease as well. He does not have current local or systemic signs of illness. He was advised to continue knee roller use at home to aid with compliance. He certainly has many comorbidities and this makes him higher risk for infection and delayed healing. I have been notified by his home health nurse that he is walking around at home in his shoe. It is noted his noninvasive vascular studies were abnormal again and he has had previous lower extremity ulcers with significant delayed healing. He was advised to follow-up with Dr. Beck, vascular surgeon, as scheduled and advised. He has had prior intervention already. We also discussed the treatment option of hyperbaric oxygen therapy because he does have a grade 3 ulcer and prior diagnosis of osteomyelitis. He is not able to come to the wound care center on a daily basis and is not ready to commit to this process. The indications, planned application, anticipated healing time management and benefits and complications were discussed. We also discussed the treatment option of below-knee amputation previously because she is very fatigued by having to travel to the wound care center and he is having significant delays in healing. He is not interested in considering this option at this time. He refused nutritional referral. Coming to weekly or biweekly appointments is significantly difficult and is disrupting his daily life. He is amenable to coming to clinic every 3 to 4 weeks only. He is on a palliative care program at this time. Note: [employer] speech recognition [employer]ix system administrator software was used to create portions of this document. Sound-alike and misspelled words, as well as other [employer]ix system administrator errors may be contained in the documentation.
== END 2020-09-24 23:59 ==
LOC: WC 08:00
PROVIDERS: Family Provider Family Medicine; PCP Family Medicine; Referring Provider Podiatrist; Visit Provider Podiatrist
DX: E11.621 Type 2 diabetes mellitus with foot ulcer (principal); L97.422 Non-pressure chronic ulcer of left heel and midfoot with fat layer exposed; E11.42 Type 2 diabetes mellitus with diabetic polyneuropathy; E11.51 Type 2 diabetes mellitus with diabetic peripheral angiopathy without gangrene; R26.2 Difficulty in walking, not elsewhere classified; E46 Unspecified protein-calorie malnutrition
CPT/HCPCS: 11042

== ENCOUNTER 2020-10-03 15:48 | Outpatient (RCR) | payer MEDICARE, SELFPAY ==
[2020-10-03] MEDS: COVID-19 VACC, MRNA(PFIZER)/PF 30 MCG/0.3 ML SYRINGE IM (09:19)
[2020-10-24] MEDS: COVID-19 VACC, MRNA(PFIZER)/PF 30 MCG/0.3 ML SYRINGE IM (08:50)
== END 2021-01-02 23:59 ==
LOC: IMMUN 15:48
PROVIDERS: PCP Family Medicine; Visit Provider Family Medicine
DX: Z23 Encounter for immunization (principal)
CPT/HCPCS: 0001A; 0002A; 91300

== ENCOUNTER 2020-10-18 08:00 | Outpatient (RCR) | payer MEDICARE, SELFPAY ==
[2020-09-25 00:12] VITALS: BP 159/87; PULSE 74; RESP 20; TEMP 36
[2020-10-18 08:02] VITALS: BP 148/79; PULSE 78; RESP 18; TEMP 36.4; BMI 27.3
[2020-10-18 08:35] VITALS: BP 146/78
--- NOTE | 2020-10-18 09:02 | PN.PCM_ITS ---
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 He has a history of prior osteomyelitis and has completed medical and surgical intervention. He denies odor, redness, warmth. He is on a palliative care plan. He denies any pedal complaints today. Progress of Wound: Improving - Physical Exam Vital Signs Temp Pulse Resp BP 97.5 F L 78 18 146/78 H 10/18/20 08:02 10/18/20 08:02 10/18/20 08:02 10/18/20 08:35 General: Alert, Oriented x3, Cooperative, No apparent distress HEENT: Atraumatic Extremities: No cyanosis, Capillary Refill Less than 3 Seconds, No Calf Tenderness, Diminished Peripheral Pulses, - - Calcaneus gait Skin: Ulcer/ Wound - No purulence, erythema, streak, odor, infection. Reduce ul cer size with peripheral epithelialization is noted. Adjacent skin is hairless and atrophic. Wound Measurements and Assessment WC - Nurse 1 - General Ulcer Measurement Start: 10/18/20 08:01 Freq: Status: Active Protocol: Activity Type Activity Date Activity User E-Sign Co-Sign Detail Recorded Client Recorded Date Recorded By Document 10/18/20 08:02 DL [id number] 10/18/20 08:03 DL 10/18/20 08:02 Wound Center Nurse 1 [Ulcer Assessment] 3-left posterior heel -Current Size (cm) - Length 2 -Current Size (cm) - Width 2 -Current Size (cm) - Depth 2.1 -Total Square Cm 4 -Photo Taken No -Exudate Amt Medium -Exudate Type Serosanguineous -Wound Margin Thickened & Rolled Under -Granulation Amt Medium (34-66%) -Granulation Quality Red -Necrosis Amt Medium (34-66%) -Necrotic Tissue Type Adherent Slough -Structure Exposed N/A -Texture (Emily-wound Skin Appearance) Scarring -Moisture (Emily-wound Skin Appearance Maceration ) -Color (Emily-wound Skin Appearance) No Abnormality -Temperature (Emily-wound Skin No Abnormality Appearance) (Pt Warm) -Tenderness on Palpation (Emily-wound No Skin Appearance) -Ulcer Cleansing Wound Cleanser -Foul Odor after Cleansing No -Anesthetic Used 4% Lidocaine Solution FINA - Nurse 2 - General Ulcer CM Notes Start: 10/18/20 08:01 Freq: Status: Active Protocol: Activity Type Activity Date Activity User E-Sign Co-Sign Detail Recorded Client Recorded Date Recorded By Document 10/18/20 08:26 GAGE [id number] 10/18/20 08:32 GAGE 10/18/20 08:26 Wound Center Nurse 2 [Procedure/Treatment] -Time 08:26 -Correct Patient Yes -Correct Side, Site, Position Yes -Correct Procedure Yes -Procedure Performed Yes -Type of Procedure Debridement -Clinical Debridement Subcutaneous -Tissue Removed Subcutaneous -Post Debridement (cm) - Length 1.3 -Post Debridement (cm) - Width 1.8 -Post Debridement (cm) - Depth 0.8 -Total Square (Post) (cm) 2.34 -Area of Debridement (cm) - Length 1.3 -Area of Debridement (cm) - Width 1.8 -Total Square (Area) (cm) 2.34 -Tunneling No -Undermining/Tunneling No -Circular Undermining No -Wound/Ulcer Outcome Not Healed -Ulcer Cleansing Rinsed/ Irrigated with Saline -Foul Odor after Cleansing No -Bioengineered Tissue No -Bleeding Controlled with Pressure -Offloading Yes -Type of Offloading Knee Walker -Treatment Response Procedure Tolerated Well -Debridement - Subq, 1st 20sq cm Yes [See Physician Procedure note for Specifics] Pain Scale: 0-10 Numeric [Pain] -Is Patient Pain Free? Yes FINA - Nurse 3 - General Ulcer D/C NN Start: 10/18/20 08:01 Freq: Status: Active Protocol: Activity Type Activity Date Activity User E-Sign Co-Sign Detail Recorded Client Recorded Date Recorded By Document 10/18/20 08:35 RB [id number] 10/18/20 08:38 RB 10/18/20 08:35 Wound Care Nurse 3 [Wound Dressing] 3-left posterior heel -Ulcer Cleansing Rinsed/ Irrigated with Saline -Primary Dressing Applied Aquacel AG 2x2 -Primary Dressing Covered/Secured Dry Gauze,Dry with Gauze & Roll Gauze,Secured with Tape -Aquacel AG 2x2 1 [Post Procedure Tolerated] -Treatment Response Procedure Tolerated Well Vital Signs [Blood Pressure] -Blood Pressure (90/60-120/80) 146/78 H -Blood Pressure Mean (mm Hg) 100 -Source Monitor -Position Sitting -Blood Pressure Location Left Arm Pain Scale: 0-10 Numeric [Pain] -Is Patient Pain Free? Yes WC - Visit Discharge [Visit Discharge Information] -Discharge Condition Stable -Ambulatory Status Walker -Transportation Private Auto -Medication Reconcilliation completed No & provided to patient/care provider -Clinical Summary of Care Provided Yes -Notes: KNEEWALKER Musculoskeletal: Muscle Wasting Neurological: - - Lack of epicritic sensation light touch is consistent with neuropathic status Psych/Mental Status: Normal Affect, Appropriate Debridement Note Post-Debridement Measurements/Treatment WC - Nurse 2 - General Ulcer CM Notes Start: 10/18/20 08:01 Freq: Status: Active Protocol: Activity Type Activity Date Activity User E-Sign Co-Sign Detail Recorded Client Recorded Date Recorded By Document 10/18/20 08:26 GAGE [id number] 10/18/20 08:32 GAGE 10/18/20 08:26 Wound Center Nurse 2 3-left posterior heel -Time 08:26 -Correct Patient Yes -Correct Side, Site, Position Yes -Correct Procedure Yes -Procedure Performed Yes -Type of Procedure Debridement -Clinical Debridement Subcutaneous -Tissue Removed Subcutaneous -Post Debridement (cm) - Length 1.3 -Post Debridement (cm) - Width 1.8 -Post Debridement (cm) - Depth 0.8 -Total Square (Post) (cm) 2.34 -Area of Debridement (cm) - Length 1.3 -Area of Debridement (cm) - Width 1.8 -Total Square (Area) (cm) 2.34 -Tunneling No -Undermining/Tunneling No -Circular Undermining No -Wound/Ulcer Outcome Not Healed -Ulcer Cleansing Rinsed/ Irrigated with Saline -Foul Odor after Cleansing No -Bioengineered Tissue No -Bleeding Controlled with Pressure -Offloading Yes -Type of Offloading Knee Walker -Treatment Response Procedure Tolerated Well -Debridement - Subq, 1st 20sq cm Yes Pain Scale: 0-10 Numeric Is Patient Pain Free? Yes - Nurse 3 - General Ulcer D/C NN Start: 10/18/20 08:01 Freq: Status: Active Protocol: Activity Type Activity Date Activity User E-Sign Co-Sign Detail Recorded Client Recorded Date Recorded By Document 10/18/20 08:35 RB [id number] 10/18/20 08:38 RB 10/18/20 08:35 Wound Care Nurse 3 3-left posterior heel -Ulcer Cleansing Rinsed/ Irrigated with Saline -Primary Dressing Applied Aquacel AG 2x2 -Primary Dressing Covered/Secured with Dry Gauze,Dry Gauze & Roll Gauze,Secured with Tape -Aquacel AG 2x2 1 Treatment Response Procedure Tolerated Well Vital Signs Blood Pressure (90/60-120/80) 146/78 H Blood Pressure Mean (mm Hg) 100 Source Monitor Position Sitting Blood Pressure Location Left Arm Pain Scale: 0-10 Numeric Is Patient Pain Free? Yes WC - Visit Discharge Discharge Condition Stable Ambulatory Status Walker Transportation Private Auto Medication Reconcilliation completed & No provided to patient/care provider Clinical Summary of Care Provided Yes Notes: KNEEWALKER Wound debrided: plantar heel Laterality: Left Wound Grade/Stage: grade 3 Type of Debridement: Excisional debridement Anesthesia Used: 5% Lidocaine Gel Depth: in the subcutaneous layer Percentage of wound debrided: 100 Instrument Used: #15 blade Tissue Removed: fibrous, devitalized subcutaneous, biofilm, slough Severity: Fat Layer Exposed Amount of bleeding with debridement: Mild Bleeding Controlled with: Pressure Patient tolerated procedure well Assessment/Plan Assessment: Left heel ulcer previous grade 3 ulcer status with osteomyelitis that has stabilized and looks clinically stable. Acute on chronic osteomyelitis left heel that has already been treated surgically and medically. Peripheral vascular disease with recent intervention performed. Diabetes with neuropathy. Malnutrition. Other comorbidities. Walking difficulty. Delayed healing. Inability to proceed with recommended treatments Plan: This patient was examined and evaluated today. Subcutaneous excisional debridement was performed as noted in the clinical panel to the plantar ulcer site. To continue washing his foot with Dial soap and water. It is imperative that he keep pressure off of this site. To change daily dressing with Aquacel Ag. His previous labs were reviewed and he did not demonstrate leukocytosis. He did have elevated C-reactive protein and an ESR of 66. His cultures demonstrate corynebacterium and MSSA is consistent with skin minerva. His C. diff icile history is also noted. This will be monitored very close. An x-ray of his hindfoot to evaluate for any new osseous destruction was noted. He does have a prior diagnosis of osteomyelitis that was previously treated surgically and medically with IV antibiotics. He has a very large spur with proliferative calcification. This is consistent with biomechanical changes and osteomyelitis course. It is noted he previously had osteomyelitis in the same location and was treated medically for this. This previously excised bone was sent to both microbiology and pathology. He completed a course of antibiotics and was previously under the management of infectious disease as well. He does not have current local or systemic signs of illness. He was advised to continue knee roller use at home to aid with compliance. He certainly has many comorbidities and this makes him higher risk for infection and delayed healing. I have been notified by his home health nurse that he is walking around at home in his shoe. It is noted his noninvasive vascular studies were abnormal again and he has had previous lower extremity ulcers with significant delayed healing. He was advised to follow-up with Dr. Beck, vascular surgeon, as scheduled and advised. He has had prior intervention already. We also discussed the treatment option of hyperbaric oxygen therapy because he does have a grade 3 ulcer and prior diagnosis of osteomyelitis. He is not able to come to the wound care center on a daily basis and is not ready to commit to this process. The indications, planned application, anticipated healing time management and benefits and complications were discussed. We also discussed the treatment option of below-knee amputation previously because she is very fatigued by having to travel to the wound care center and he is having significant delays in healing. He is not interested in considering this option at this time. He refused nutritional referral. Coming to weekly or biweekly appointments is significantly difficult and is disrupting his daily life. He is amenable to coming to clinic every 3 to 4 weeks only. He is on a palliative care program at this time. Note: [employer] speech recognition systems checkout mechanic software was used to create portions of this document. Sound-alike and misspelled words, as well as other systems checkout mechanic errors may be contained in the documentation.
== END 2020-10-25 23:59 ==
LOC: WC 08:00
PROVIDERS: Family Provider Family Medicine; PCP Family Medicine; Referring Provider Podiatrist; Visit Provider Podiatrist
DX: E11.621 Type 2 diabetes mellitus with foot ulcer (principal); E11.42 Type 2 diabetes mellitus with diabetic polyneuropathy; E11.51 Type 2 diabetes mellitus with diabetic peripheral angiopathy without gangrene; L97.422 Non-pressure chronic ulcer of left heel and midfoot with fat layer exposed; M86.672 Other chronic osteomyelitis, left ankle and foot; E11.69 Type 2 diabetes mellitus with other specified complication
CPT/HCPCS: 11042

== ENCOUNTER 2020-11-15 08:00 | Outpatient (RCR) | payer MEDICARE, SELFPAY ==
[2020-10-26 00:24] VITALS: BP 146/78; PULSE 78; RESP 18; TEMP 36.4
[2020-11-15 08:09] VITALS: BP 122/70; PULSE 80; RESP 18; TEMP 36.3; BMI 27.3
--- NOTE | 2020-11-15 09:47 | PCM.WC.PN ---
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 Status: Chronic Code(s): L97.526 - Non-pressure chronic ulcer of other part of left foot with bone involvement without evidence of necrosis (2) PVD (peripheral vascular disease) Status: Chronic Code(s): I73.9 - Peripheral vascular disease, unspecified (3) Type 2 diabetes mellitus with diabetic polyneuropathy Status: Chronic Code(s): E11.42 - Type 2 diabetes mellitus with diabetic polyneuropathy (4) Delayed wound healing Status: Chronic Code(s): T14.8XXD - Other injury of unspecified body region, subsequent encounter (5) Malnutrition Status: Chronic Code(s): E46 - Unspecified protein-calorie malnutrition Type of Wound Date of Service: 11/15/20 Chief Complaint: Left heel ulcer History of Wound: This 75-year-old male with multiple comorbidities was seen today for left plantar heel ulcer. He has a history of prior osteomyelitis and has completed medical and surgical intervention. He denies odor, redness, warmth. He is on a palliative care plan. He denies any pedal complaints today. Progress of Wound: Improving - Physical Exam Vital Signs Temp Pulse Resp BP 97.3 F L 80 18 122/70 H 11/15/20 08:09 11/15/20 08:09 11/15/20 08:09 11/15/20 08:09 General: Alert, Oriented x3, Cooperative, No apparent distress HEENT: Atraumatic Extremities: No cyanosis, Capillary Refill Less than 3 Seconds, No Calf Tenderness, Diminished Peripheral Pulses, Edema - Scant Skin: Ulcer/ Wound - No purulence, erythema, string, odor, infection., - - No visualized bone Wound Measurements and Assessment WC - Nurse 1 - General Ulcer Measurement Start: 11/15/20 08:09 Freq: Status: Active Protocol: Activity Type Activity Date Activity User E-Sign Co-Sign Detail Recorded Client Recorded Date Recorded By Document 11/15/20 08:09 DL [id number] 11/15/20 08:12 DL 11/15/20 08:09 Wound Center Nurse 1 [Ulcer Assessment] 3-left posterior heel -Current Size (cm) - Length 1.1 -Current Size (cm) - Width 1.4 -Current Size (cm) - Depth 1 -Total Square Cm 1.54 -Photo Taken No -Undermining/Tunneling Starts (O' 10 clock) -Undermining/Tunneling Ends (O'clock) 14 -Maximum Distance (cm) 0.9 -Exudate Amt Small -Exudate Type Serosanguineous -Wound Margin Thickened & Rolled Under -Granulation Amt Medium (34-66%) -Granulation Quality Red -Necrosis Amt Medium (34-66%) -Necrotic Tissue Type Adherent Slough -Structure Exposed N/A -Texture (Emily-wound Skin Appearance) Callus,Scarring -Moisture (Emily-wound Skin Appearance Maceration ) -Color (Emily-wound Skin Appearance) No Abnormality -Temperature (Emily-wound Skin No Abnormality Appearance) (Pt Warm) -Tenderness on Palpation (Emily-wound No Skin Appearance) -Ulcer Cleansing Wound Cleanser -Foul Odor after Cleansing No -Anesthetic Used 4% Lidocaine Solution FINA - Nurse 2 - General Ulcer CM Notes Start: 11/15/20 08:09 Freq: Status: Active Protocol: Activity Type Activity Date Activity User E-Sign Co-Sign Detail Recorded Client Recorded Date Recorded By Document 11/15/20 08:19 GAGE [id number] 11/15/20 08:24 GAGE 11/15/20 08:19 Wound Center Nurse 2 [Procedure/Treatment] -Time 08:20 -Correct Patient Yes -Correct Side, Site, Position Yes -Correct Procedure Yes -Procedure Performed Yes -Type of Procedure Debridement -Clinical Debridement Subcutaneous -Tissue Removed Subcutaneous -Post Debridement (cm) - Length 1.5 -Post Debridement (cm) - Width 1.3 -Post Debridement (cm) - Depth 0.6 -Total Square (Post) (cm) 1.95 -Area of Debridement (cm) - Length 1.5 -Area of Debridement (cm) - Width 1.3 -Total Square (Area) (cm) 1.95 -Tunneling No -Undermining/Tunneling No -Circular Undermining No -Wound/Ulcer Outcome Not Healed -Ulcer Cleansing Rinsed/ Irrigated with Saline -Foul Odor after Cleansing No -Bioengineered Tissue No -Bleeding Controlled with Pressure -Offloading Yes -Type of Offloading Knee Walker -Treatment Response Procedure Tolerated Well -Debridement - Subq, 1st 20sq cm Yes [See Physician Procedure note for Specifics] Pain Scale: 0-10 Numeric [Pain] -Is Patient Pain Free? Yes - Nurse 3 - General Ulcer D/C NN Start: 11/15/20 08:09 Freq: Status: Active Protocol: Activity Type Activity Date Activity User E-Sign Co-Sign Detail Recorded Client Recorded Date Recorded By Document 11/15/20 08:39 RB [id number] 11/15/20 08:40 RB 11/15/20 08:39 Wound Care Nurse 3 [Wound Dressing] 3-left posterior heel -Ulcer Cleansing Wound Cleanser -Primary Dressing Applied Aquacel AG 4x4 -Primary Dressing Covered/Secured Dry Gauze,Dry with Gauze & Roll Gauze,Secured with Tape -Other Covering abd nurses hat -Aquacel AG 4x4 1 [Post Procedure Tolerated] -Treatment Response Procedure Tolerated Well WC - Visit Discharge [Visit Discharge Information] -Discharge Condition Stable -Ambulatory Status Ambulatory, Walker -Transportation Private Auto -Medication Reconcilliation completed No & provided to patient/care provider -Clinical Summary of Care Provided Yes Musculoskeletal: Muscle Wasting Neurological: - - Neuropathy related lack of sensation Psych/Mental Status: Normal Affect, Appropriate Debridement Note Post-Debridement Measurements/Treatment WC - Nurse 2 - General Ulcer CM Notes Start: 11/15/20 08:09 Freq: Status: Active Protocol: Activity Type Activity Date Activity User E-Sign Co-Sign Detail Recorded Client Recorded Date Recorded By Document 11/15/20 08:19 GAGE [id number] 11/15/20 08:24 GAGE 11/15/20 08:19 Wound Center Nurse 2 3-left posterior heel -Time 08:20 -Correct Patient Yes -Correct Side, Site, Position Yes -Correct Procedure Yes -Procedure Performed Yes -Type of Procedure Debridement -Clinical Debridement Subcutaneous -Tissue Removed Subcutaneous -Post Debridement (cm) - Length 1.5 -Post Debridement (cm) - Width 1.3 -Post Debridement (cm) - Depth 0.6 -Total Square (Post) (cm) 1.95 -Area of Debridement (cm) - Length 1.5 -Area of Debridement (cm) - Width 1.3 -Total Square (Area) (cm) 1.95 -Tunneling No -Undermining/Tunneling No -Circular Undermining No -Wound/Ulcer Outcome Not Healed -Ulcer Cleansing Rinsed/ Irrigated with Saline -Foul Odor after Cleansing No -Bioengineered Tissue No -Bleeding Controlled with Pressure -Offloading Yes -Type of Offloading Knee Walker -Treatment Response Procedure Tolerated Well -Debridement - Subq, 1st 20sq cm Yes Pain Scale: 0-10 Numeric Is Patient Pain Free? Yes WC - Nurse 3 - General Ulcer D/C NN Start: 11/15/20 08:09 Freq: Status: Active Protocol: Activity Type Activity Date Activity User E-Sign Co-Sign Detail Recorded Client Recorded Date Recorded By Document 11/15/20 08:39 RB [id number] 11/15/20 08:40 RB 11/15/20 08:39 Wound Care Nurse 3 3-left posterior heel -Ulcer Cleansing Wound Cleanser -Primary Dressing Applied Aquacel AG 4x4 -Primary Dressing Covered/Secured with Dry Gauze,Dry Gauze & Roll Gauze,Secured with Tape -Other Covering abd nurses hat -Aquacel AG 4x4 1 Treatment Response Procedure Tolerated Well WC - Visit Discharge Discharge Condition Stable Ambulatory Status Ambulatory, Walker Transportation Private Auto Medication Reconcilliation completed & No provided to patient/care provider Clinical Summary of Care Provided Yes Wound debrided: plantar heel Laterality: Left Wound Grade/Stage: grade 3 Type of Debridement: Excisional debridement Anesthesia Used: 5% Lidocaine Gel Depth: in the subcutaneous layer Percentage of wound debrided: 100 Instrument Used: #15 blade Tissue Removed: fibrous, devitalized subcutaneous, biofilm, slough Severity: Fat Layer Exposed Amount of bleeding with debridement: Mild Bleeding Controlled with: Pressure Patient tolerated procedure well Assessment/Plan Active Problems (Last Reviewed 09/15/19 @ 08:[address] 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 Acute on chronic osteomyelitis left heel that has already been treated surgically and medically. Peripheral vascular disease with recent intervention performed. Diabetes with neuropathy. Malnutrition. Other comorbidities. Walking difficulty. Delayed healing. Inability to proceed with recommended treatments Plan: This patient was examined and evaluated today. Subcutaneous excisional debridement was performed as noted in the clinical panel to the plantar ulcer site. To continue washing his foot with Dial soap and water. It is imperative that he keep pressure off of this site. To change daily dressing with Aquacel Ag. His previous labs were reviewed and he did not demonstrate leukocytosis. He did have elevated C-reactive protein and an ESR of 66. His cultures demonstrate corynebacterium and MSSA is consistent with skin minerva. His C. difficile history is also noted. This will be monitored very close. An x-ray of his hindfoot to evaluate for any new osseous destruction was noted. He does have a prior diagnosis of osteomyelitis that was previously treated surgically and medically with IV antibiotics. He has a very large spur with proliferative calcification. This is consistent with biomechanical changes and osteomyelitis course. It is noted he previously had osteomyelitis in the same location and was treated medically for this. This previously excised bone was sent to both microbiology and pathology. He completed a course of antibiotics and was previously under the management of infectious disease as well. He does not have current local or systemic signs of illness. He was advised to continue knee roller use at home to aid with compliance. He certainly has many comorbidities and this makes him higher risk for infection and delayed healing. It is noted his noninvasive vascular studies were abnormal again and he has had previous lower extremity ulcers with significant delayed healing. He was advised to follow-up with Dr. Beck, vascular surgeon, as scheduled and advised. He has had prior intervention already. We also discussed the treatment option of hyperbaric oxygen therapy because he does have a grade 3 ulcer and prior diagnosis of osteomyelitis. He is not able to come to the wound care center on a daily basis and is not ready to commit to this process. The indications, planned application, anticipated healing time management and benefits and complications were discussed. We also discussed the treatment option of below-knee amputation previously because she is very fatigued by having to travel to the wound care center and he is having significant delays in healing. He is not interested in considering this option at this time. He refused nutritional referral. Coming to weekly or biweekly appointments is significantly difficult and is disrupting his daily life. He is amenable to coming to clinic every 3 to 4 weeks only. He is on a palliative care program at this time. I called his daughter to review his case per his request and I left her message requesting she call me back. Note: [employer] speech recognition lead business systems analyst software was used to create portions of this document. Sound-alike and misspelled words, as well as other lead business systems analyst errors may be contained in the documentation.
== END 2020-11-24 23:59 ==
LOC: WC 08:00
PROVIDERS: Family Provider Family Medicine; PCP Family Medicine; Referring Provider Podiatrist; Visit Provider Podiatrist
DX: E11.621 Type 2 diabetes mellitus with foot ulcer (principal); L97.426 Non-pressure chronic ulcer of left heel and midfoot with bone involvement without evidence of necrosis; E11.51 Type 2 diabetes mellitus with diabetic peripheral angiopathy without gangrene; E11.42 Type 2 diabetes mellitus with diabetic polyneuropathy; R26.2 Difficulty in walking, not elsewhere classified; R79.82 Elevated C-reactive protein (CRP); Z79.84 Long term (current) use of oral hypoglycemic drugs; Z79.82 Long term (current) use of aspirin; Z79.899 Other long term (current) drug therapy
CPT/HCPCS: 11042

== ENCOUNTER 2020-12-20 08:00 | Outpatient (RCR) | payer MEDICARE, SELFPAY ==
[2020-11-25 00:25] VITALS: BP 122/70; PULSE 80; RESP 18; TEMP 36.3
[2020-12-20 08:03] VITALS: BP 161/74; PULSE 77; RESP 18; TEMP 36.4; BMI 27.3
--- NOTE | 2020-12-20 08:23 | PCM.WC.PN ---
History of Present Illness Date of Service: 12/20/20 Chief Complaint: Left heel ulcer History of Wound: He denies fever, chill, nausea, vomiting. He traveled to [place] last month and during that time he developed infection. He went to the [place] [facility] and was given IV ceftriaxone and discharged home on oral doxycycline. This 75-year-old male with multiple comorbidities was seen today for left plantar heel ulcer. He has a history of prior osteomyelitis and has completed medical and surgical intervention. He denies odor, redness, warmth. He is on a palliative care plan. Objective Data Objective Data Vital Signs: Vital Signs Temp Pulse Resp BP 97.5 F L 77 18 161/74 H 12/20/20 08:03 12/20/20 08:03 12/20/20 08:03 12/20/20 08:03 Body Mass Index (BMI) 27.3 Physical Exam Const alert and oriented x3 General Appearance: cooperative HEENT normocephalic Extremity Extremity Narrative: No calf tenderness Diminished pulses Muscle wasting noted General Extremity: edema and no tenderness to palpation of joints or extremities; Negative for cyanosis Skin Skin Narrative: no purulence, no streaking, no odor, no infection. maceration and callous formation noted. no direct probe to bone General Skin Exam: Negative for erythema Neuro Neuro Narrative: lack of normal epicritic sensation via light touch is consistent with neuropathy status Psych cooperative and affect normal Debridement Note Debridement Note Post-Debridement Measurements and Additional Note: Post-Debridement Measurements/Treatment - Nurse 1 - General Ulcer Assessment Start: 12/20/20 08:03 Freq: Status: Active Protocol: MALIK Activity Type Activity Date Activity User E-Sign Co-Sign Detail Recorded Client Recorded Date Recorded By Document 12/20/20 08:03 DL [id number] 12/20/20 08:06 DL 12/20/20 08:03 - Today's Visit Information Type of service Follow-up Visit (Physician/COMMUNITY [employer] PROGRAM REPRESENTATIVE ) Arrival Mode Ambulatory, Walker Transfer Assistance None Patient Identification Verified (Name & Yes ) Patient Requires Transmission-Based No Precautions Height and Weight Body Mass Index (BMI) 27.3 BMI Classification Overweight Vital Signs Temperature (97.8 F-99.1 F) 97.5 F L Temperature Source Temporal Pulse Rate (60-100) 77 Pulse Location Monitor Respiratory Rate (12-18) 18 Respiratory rate source Observation Blood Pressure (90/60-120/80) 161/74 H Blood Pressure Mean (mm Hg) 103 Source Monitor History Since Last Visit- (Skip if this is Patient's initial visit) Have you changed medications since your No last visit? Any new allergies or adverse reactions No Had a fall/change in ADL's that may No increase risk of falls Signs or symptoms of abuse and/or No neglect since last visit Have you been in the hospital since your No last visit? Has dressing in place as prescribed No Has compression in place as prescribed Yes Has offloadiing in place as prescribed Yes Experienced any changes in pain level or No management Pain Scale: 0-10 Numeric Is Patient Pain Free? Yes WC - Nurse 1 - General Ulcer Measurement Start: 12/20/20 08:03 Freq: Status: Active Protocol: Activity Type Activity Date Activity User E-Sign Co-Sign Detail Recorded Client Recorded Date Recorded By Document 12/20/20 08:03 DL [id number] 12/20/20 08:06 DL 12/20/20 08:03 Wound Center Nurse 1 3-left posterior heel -Current Size (cm) - Length 0.5 -Current Size (cm) - Width 1.2 -Current Size (cm) - Depth 0.6 -Total Square Cm 0.60 -Photo Taken No -Exudate Amt Medium -Exudate Type Serosanguineous -Wound Margin Thickened & Rolled Under -Granulation Amt Medium (34-66%) -Granulation Quality Red -Necrosis Amt Medium (34-66%) -Necrotic Tissue Type Adherent Slough -Structure Exposed N/A -Texture (Emily-wound Skin Appearance) Callus,Scarring -Moisture (Emily-wound Skin Appearance) Maceration -Color (Emliy-wound Skin Appearance) No Abnormality -Temperature (Emily-wound Skin No Abnormality Appearance) (Pt Warm) -Tenderness on Palpation (Emily-wound No Skin Appearance) -Ulcer Cleansing Wound Cleanser -Foul Odor after Cleansing No -Anesthetic Used 4% Lidocaine Solution WC - Nurse 2 - General Ulcer CM Notes Start: 12/20/20 08:03 Freq: Status: Active Protocol: Activity Type Activity Date Activity User E-Sign Co-Sign Detail Recorded Client Recorded Date Recorded By Document 12/20/20 08:18 PL [id number] 12/20/20 08:20 PL 12/20/20 08:18 Wound Center Nurse 2 -Time 08:13 -Correct Patient Yes -Correct Side, Site, Position Yes -Correct Procedure Yes -Procedure Performed Yes -Type of Procedure Debridement -Clinical Debridement Subcutaneous -Tissue Removed Subcutaneous -Post Debridement (cm) - Length 0.6 -Post Debridement (cm) - Width 1.3 -Post Debridement (cm) - Depth 0.7 -Total Square (Post) (cm) 0.78 -Area of Debridement (cm) - Length 0.6 -Area of Debridement (cm) - Width 1.3 -Total Square (Area) (cm) 0.78 -Tunneling No -Undermining/Tunneling No -Circular Undermining No -Wound/Ulcer Outcome Not Healed -Ulcer Cleansing Rinsed/ Irrigated with Saline -Foul Odor after Cleansing No -Bioengineered Tissue No -Bleeding Controlled with Pressure -Treatment Response Procedure Tolerated Well -Debridement - Subq, 1st 20sq cm Yes Pain Scale: 0-10 Numeric Is Patient Pain Free? 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 Subcutaneous excisional debridement was performed as noted in the clinical panel to the plantar ulcer site.? To continue washing his foot with Dial soap and water.? It is imperative that he keep pressure off of this site.? To change daily dressing with Aquacel Ag.? It is noted he was on a recent antibiotic. Medical records will be requested from the urgent center he went to in [place] to confirm if they did a culture. He was reassured no local signs of infection noted today. ? His C. difficile history is also noted.? He was advised to continue knee roller use at home to aid with compliance.? He certainly has many comorbidities and this makes him higher risk for infection and delayed healing.? It is noted his noninvasive vascular studies were abnormal again and he has had previous lower extremity ulcers with significant delayed healing.? He was advised to follow-up with Dr. Beck, vascular surgeon, as scheduled and advised.? He has had prior intervention already.? He is not able to come to the wound care center on a daily basis and is not ready to commit to this process.? He is amenable to coming to clinic every 3 to 4 weeks only.? He is on a palliative care program at this time.? Note: [employer] speech recognition waist pleater software was used to create portions of this document. Sound-alike and misspelled words, as well as other waist pleater errors may be contained in the documentation.
== END 2020-12-25 23:59 ==
LOC: WC 08:00
PROVIDERS: Family Provider Family Medicine; PCP Family Medicine; Referring Provider Podiatrist; Visit Provider Podiatrist
DX: E11.621 Type 2 diabetes mellitus with foot ulcer (principal); L97.422 Non-pressure chronic ulcer of left heel and midfoot with fat layer exposed; E11.51 Type 2 diabetes mellitus with diabetic peripheral angiopathy without gangrene; E11.42 Type 2 diabetes mellitus with diabetic polyneuropathy; E66.3 Overweight; Z68.27 Body mass index [BMI] 27.0-27.9, adult; Z79.84 Long term (current) use of oral hypoglycemic drugs; Z79.82 Long term (current) use of aspirin; Z79.899 Other long term (current) drug therapy
CPT/HCPCS: 11042

== ENCOUNTER 2021-01-17 08:00 | Outpatient (RCR) | payer MEDICARE, SELFPAY ==
[2020-12-26 00:14] VITALS: BP 161/74; PULSE 77; RESP 18; TEMP 36.4
[2021-01-17 08:09] VITALS: BP 136/73; PULSE 79; RESP 18; TEMP 36; BMI 27.3
--- NOTE | 2021-01-17 08:37 | PCM.WC.PN ---
History of Present Illness Date of Service: 01/17/21 Chief Complaint: Left heel ulcer History of Wound: This 75-year-old male with multiple comorbidities was seen today for left plantar heel ulcer. He has a history of prior osteomyelitis and has completed medical and surgical intervention. He denies odor, redness, warmth. He is on a palliative care plan. He denies fever, chill, nausea, vomiting. He is with his brother today. Progress of Wound: Stable Objective Data Objective Data Vital Signs: Vital Signs Temp Pulse Resp BP 96.8 F L 79 18 136/73 H 01/17/21 08:09 01/17/21 08:09 01/17/21 08:09 01/17/21 08:09 Body Mass Index (BMI) 27.3 Physical Exam Const alert and oriented x3 General Appearance: cooperative HEENT normocephalic Extremity Extremity Narrative: No calf tenderness Diminished pulses Muscle wasting noted Calcaneus style limb position is consistent with his prior Achilles rupture General Extremity: edema and no tenderness to palpation of joints or extremities; Negative for cyanosis Skin Skin Narrative: no purulence, no streaking, no odor, no infection. Deep wound with granular base and no visualized bone. Peripheral hyperkeratotic tissue noted General Skin Exam: Negative for erythema Neuro Neuro Narrative: lack of normal epicritic sensation via light touch is consistent with neuropathy status Psych cooperative and affect normal Debridement Note Debridement Note Post-Debridement Measurements and Additional Note: Post-Debridement Measurements/Treatment - Nurse 1 - General Ulcer Assessment Start: 01/17/21 08:09 Freq: Status: Active Protocol: [email or web address] Activity Type Activity Date Activity User E-Sign Co-Sign Detail Recorded Client Recorded Date Recorded By Document 01/17/21 08:09 Desktop 01/17/21 08:15 DL 01/17/21 08:09 - Today's Visit Information Type of service Follow-up Visit (Physician/S[employer]ING BENDER ) Arrival Mode Ambulatory, Walker Transfer Assistance None Patient Identification Verified (Name & Yes ) Patient Requires Transmission-Based No Precautions Height and Weight Body Mass Index (BMI) 27.3 BMI Classification Overweight Vital Signs Temperature (97.8 F-99.1 F) 96.8 F L Temperature Source Temporal Pulse Rate (60-100) 79 Pulse Location Monitor Respiratory Rate (12-18) 18 Respiratory rate source Observation Blood Pressure (90/60-120/80) 136/73 H Blood Pressure Mean (mm Hg) 94 Source Monitor History Since Last Visit- (Skip if this is Patient's initial visit) Have you changed medications since your No last visit? Any new allergies or adverse reactions No Had a fall/change in ADL's that may No increase risk of falls Signs or symptoms of abuse and/or No neglect since last visit Have you been in the hospital since your No last visit? Has dressing in place as prescribed Yes Has compression in place as prescribed N/A Has offloadiing in place as prescribed Yes Experienced any changes in pain level or No management Left Footwear No Footwear Pain Scale: 0-10 Numeric Is Patient Pain Free? Yes WC - Nurse 1 - General Ulcer Measurement Start: 01/17/21 08:09 Freq: Status: Active Protocol: Activity Type Activity Date Activity User E-Sign Co-Sign Detail Recorded Client Recorded Date Recorded By Document 01/17/21 08:09 DL Desktop 01/17/21 08:15 DL 01/17/21 08:09 Wound Center Nurse 1 3-left posterior heel -Current Size (cm) - Length 1.6 -Current Size (cm) - Width 1.6 -Current Size (cm) - Depth 1.2 -Total Square Cm 2.56 -Photo Taken No -Undermining/Tunneling Starts (O'clock 1 ) -Undermining/Tunneling Ends (O'clock) 2 -Maximum Distance (cm) 1.1 -Exudate Amt Medium -Exudate Type Serosanguineous -Wound Margin Thickened -Granulation Amt Small (1-33%) -Granulation Quality Red -Necrosis Amt Small (1-33%) -Necrotic Tissue Type Adherent Slough -Structure Exposed N/A -Texture (Emily-wound Skin Appearance) Scarring -Moisture (Emily-wound Skin Appearance) Maceration -Color (Emily-wound Skin Appearance) No Abnormality -Temperature (Emily-wound Skin No Abnormality Appearance) (Pt Warm) -Tenderness on Palpation (Emily-wound No Skin Appearance) -Ulcer Cleansing Wound Cleanser -Foul Odor after Cleansing No -Anesthetic Used 4% Lidocaine Solution WC - Nurse 2 - General Ulcer CM Notes Start: 01/17/21 08:09 Freq: Status: Active Protocol: Activity Type Activity Date Activity User E-Sign Co-Sign Detail Recorded Client Recorded Date Recorded By Document 01/17/21 08:27 JF [id number] 01/17/21 08:35 01/17/21 08:27 Wound Center Nurse 2 -Time 08:28 -Correct Patient Yes -Correct Side, Site, Position Yes -Correct Procedure Yes -Procedure Performed Yes -Type of Procedure Debridement -Clinical Debridement Subcutaneous -Tissue Removed Subcutaneous -Post Debridement (cm) - Length 1.8 -Post Debridement (cm) - Width 1.5 -Post Debridement (cm) - Depth 0.5 -Total Square (Post) (cm) 2.70 -Area of Debridement (cm) - Length 1.8 -Area of Debridement (cm) - Width 1.5 -Total Square (Area) (cm) 2.70 -Tunneling No -Undermining/Tunneling No -Circular Undermining No -Wound/Ulcer Outcome Not Healed -Ulcer Cleansing Rinsed/ Irrigated with Saline -Foul Odor after Cleansing No -Bioengineered Tissue No -Bleeding Controlled with Pressure -Offloading Yes -Type of Offloading Knee Walker -Treatment Response Procedure Tolerated Well -Debridement - Subq, 1st 20sq cm Yes Pain Scale: 0-10 Numeric Is Patient Pain Free? Yes - Nurse 3 - General Ulcer D/C NN Start: 01/17/21 08:09 Freq: Status: Active Protocol: Activity Type Activity Date Activity User E-Sign Co-Sign Detail Recorded Client Recorded Date Recorded By Document 01/17/21 08:35 JF [id number] 01/17/21 08:35 01/17/21 08:35 Wound Care Nurse 3 3-left posterior heel -Ulcer Cleansing Rinsed/ Irrigated with Saline -Foul Odor after Cleansing No -Primary Dressing Applied Aquacel AG 2x2 -Primary Dressing Covered/Secured with Dry Gauze & Roll Gauze, Secured with Tape -Aquacel AG 2x2 1 Pain Scale: 0-10 Numeric Is Patient Pain Free? Yes WC - Visit Discharge Discharge Condition Stable Ambulatory Status Ambulatory, Walker Transportation Private Auto Medication Reconcilliation completed & Yes provided to patient/care provider Clinical Summary of Care Provided Yes Wound debrided: plantar left heel Wound Grade/Stage: 3 Type of Debridement: Excisional debridement Anesthesia Used: 4% Lidocaine Solution Depth: in the subcutaneous layer Percentage of wound debrided: 100 Instrument Used: #15 blade Tissue Removed: fibrous, devitalized subcutaneous, biofilm, slough Severity: Fat Layer Exposed Amount of bleeding with debridement: Mild Bleeding Controlled with: Pressure Patient tolerated procedure: Patient tolerated procedure well Assessment/Plan Assessment/Plan (1) Non-pressure chronic ulcer of other part of left foot with fat layer exposed: CODE(S): L97.522 - Non-pressure chronic ulcer of other part of left foot with fat layer exposed PLAN: This patient was examined and evaluated today. Subcutaneous excisional debridement was performed as noted in the clinical panel to the plantar ulcer site. To continue washing his foot with Dial soap and water. It is imperative that he keep pressure off of this site. To change daily dressing with Aquacel Ag. He was reassured no local signs of infection noted today. His C. difficile history is also noted. He was advised to continue knee roller use at home to aid with compliance. He certainly has many comorbidities and this makes him higher risk for infection and delayed healing. It is noted his noninvasive vascular studies were abnormal again and he has had previous lower extremity ulcers with significant delayed healing. He was advised to follow-up with Dr. Beck, vascular surgeon, as scheduled and advised. He has had prior intervention already. He is not able to come to the wound care center on a weekly basis and is not ready to commit to this process. He is amenable to coming to clinic every 3 to 4 weeks only. He is on a palliative care program at this time. Note: [employer] speech recognition real estate services administrator software was used to create portions of this document. Sound-alike and misspelled words, as well as other real estate services administrator errors may be contained in the documentation. He is stable. The medical decision making level is low. There is noted low risk of morbidity after considering this treatment plan and diagnostic data. The problems addressed require a low medical decision making level which includes two or more minor problems, a stable chronic illness, or an acute uncomplicated illness or injury.
== END 2021-01-24 23:59 ==
LOC: WC 08:00
PROVIDERS: Family Provider Family Medicine; PCP Family Medicine; Referring Provider Podiatrist; Visit Provider Podiatrist
DX: E11.621 Type 2 diabetes mellitus with foot ulcer (principal); L97.422 Non-pressure chronic ulcer of left heel and midfoot with fat layer exposed; E66.3 Overweight; Z68.27 Body mass index [BMI] 27.0-27.9, adult; Z79.84 Long term (current) use of oral hypoglycemic drugs; Z79.82 Long term (current) use of aspirin; Z79.899 Other long term (current) drug therapy
CPT/HCPCS: 11042

== ENCOUNTER 2021-02-14 08:00 | Outpatient (RCR) | payer MEDICARE, SELFPAY ==
[2021-01-25 00:14] VITALS: BP 136/73; PULSE 79; RESP 18; TEMP 36
[2021-02-14 07:59] VITALS: BP 172/79; PULSE 81; RESP 16; BMI 27.3
--- NOTE | 2021-02-14 09:00 | PCM.WC.PN ---
History of Present Illness Date of Service: 02/14/21 Chief Complaint: Left heel ulcer History of Wound: This 75-year-old male with multiple comorbidities was seen today for left plantar heel ulcer. He has a history of prior osteomyelitis and has completed medical and surgical intervention. He denies odor, redness, warmth. He is on a palliative care plan. He denies fever, chill, nausea, vomiting. His nurse was concerned about some redness to his heel last week which is not present today. Progress of Wound: Stable Objective Data Objective Data Vital Signs: Vital Signs Temp Pulse Resp BP 96.8 F L 81 16 172/79 H 01/25/21 00:14 02/14/21 07:59 02/14/21 07:59 02/14/21 07:59 Oxygen Delivery Method Room Air Body Mass Index (BMI) 27.3 Physical Exam Const alert and oriented x3 General Appearance: cooperative HEENT normocephalic Extremity Extremity Narrative: No calf tenderness Diminished pulses Muscle wasting noted Calcaneus style limb position is consistent with his prior Achilles rupture General Extremity: edema and no tenderness to palpation of joints or extremities; Negative for cyanosis Skin Skin Narrative: no purulence, no streaking, no odor, no infection. Deep wound with granular base and no visualized bone. Peripheral hyperkeratotic tissue noted General Skin Exam: Negative for erythema Neuro Neuro Narrative: lack of normal epicritic sensation via light touch is consistent with neuropathy status Psych cooperative and affect normal Debridement Note Debridement Note Post-Debridement Measurements and Additional Note: Post-Debridement Measurements/Treatment - Nurse 1 - General Ulcer Assessment Start: 02/14/21 07:59 Freq: Status: Active Protocol: WC.TELMA Activity Type Activity Date Activity User E-Sign Co-Sign Detail Recorded Client Recorded Date Recorded By Document 02/14/21 07:59 [facility] Desktop 02/14/21 08:02 [facility] 02/14/21 07:59 - Today's Visit Information Type of service Follow-up Visit (Physician/[employer] WORKER ) Arrival Mode Ambulatory Transfer Assistance None Patient Identification Verified (Name & Yes ) Patient Requires Transmission-Based No Precautions Height and Weight Body Mass Index (BMI) 27.3 BMI Classification Overweight Vital Signs Temperature Source Temporal Pulse Rate (60-100) 81 Pulse Location Monitor Respiratory Rate (12-18) 16 Respiratory rate source Observation Oxygen Delivery Method Room Air Blood Pressure (90/60-120/80) 172/79 H Blood Pressure Mean (mm Hg) 110 Source Monitor Position Sitting Blood Pressure Location Left Arm History Since Last Visit- (Skip if this is Patient's initial visit) Have you changed medications since your No last visit? Any new allergies or adverse reactions No Had a fall/change in ADL's that may No increase risk of falls Signs or symptoms of abuse and/or No neglect since last visit Have you been in the hospital since your No last visit? Has dressing in place as prescribed Yes Has compression in place as prescribed N/A Has offloadiing in place as prescribed Yes Experienced any changes in pain level or No management Pain Scale: 0-10 Numeric Is Patient Pain Free? Yes WC - Nurse 1 - General Ulcer Measurement Start: 02/14/21 07:59 Freq: Status: Active Protocol: Activity Type Activity Date Activity User E-Sign Co-Sign Detail Recorded Client Recorded Date Recorded By Document 02/14/21 07:59 [facility] Desktop 02/14/21 08:02 [facility] 02/14/21 07:59 [facility] Nurse 1 3-left posterior heel -Combined with other wound No -Current Size (cm) - Length 1.5 -Current Size (cm) - Width 2 -Current Size (cm) - Depth 1 -Total Square Cm 3.0 -Photo Taken No -Epithelialization None Present -Tunneling No -Undermining/Tunneling Yes -Undermining/Tunneling Starts (O'clock 12 ) -Undermining/Tunneling Ends (O'clock) 12 -Maximum Distance (cm) 1.2 -Exudate Amt Large -Exudate Type Serosanguineous -Wound Margin Thickened & Rolled Under -Granulation Amt Large (67-100%) -Granulation Quality Red -Slough/Fibrin Yes -Necrosis Amt Small (1-33%) -Necrotic Tissue Type Adherent Slough -Texture (Emily-wound Skin Appearance) Callus,Scarring -Moisture (Emily-wound Skin Appearance) Maceration,Dry/ Scaly -Color (Emily-wound Skin Appearance) Assessed -Temperature (Emily-wound Skin No Abnormality Appearance) (Pt Warm) -Tenderness on Palpation (Emily-wound No Skin Appearance) -Ulcer Cleansing soapy water -Foul Odor after Cleansing No -Anesthetic Used 4% Lidocaine Solution WC - Nurse 2 - General Ulcer CM Notes Start: 02/14/21 07:59 Freq: Status: Active Protocol: Activity Type Activity Date Activity User E-Sign Co-Sign Detail Recorded Client Recorded Date Recorded By Document 02/14/21 08:21 [facility] [id number] 02/14/21 08:23 02/14/21 08:21 W[facility] Center Nurse 2 -Time 08:21 -Correct Patient Yes -Correct Side, Site, Position Yes -Correct Procedure Yes -Procedure Performed Yes -Type of Procedure Debridement -Clinical Debridement Subcutaneous -Tissue Removed Subcutaneous -Post Debridement (cm) - Length 1.8 -Post Debridement (cm) - Width 2.4 -Post Debridement (cm) - Depth 1 -Total Square (Post) (cm) 4.32 -Area of Debridement (cm) - Length 1.8 -Area of Debridement (cm) - Width 2.4 -Total Square (Area) (cm) 4.32 -Tunneling No -Undermining/Tunneling No -Circular Undermining No -Wound/Ulcer Outcome Not Healed -Ulcer Cleansing Rinsed/ Irrigated with Saline -Foul Odor after Cleansing No -Bioengineered Tissue No -Bleeding Controlled with Pressure -Offloading Yes -Type of Offloading Knee Walker -Treatment Response Procedure Tolerated Well -Debridement - Subq, 1st 20sq cm Yes Pain Scale: 0-10 Numeric Is Patient Pain Free? Yes - Nurse 3 - General Ulcer D/C NN Start: 02/14/21 07:59 Freq: Status: Active Protocol: Activity Type Activity Date Activity User E-Sign Co-Sign Detail Recorded Client Recorded Date Recorded By Document 02/14/21 08:23 [facility] [id number] 02/14/21 08:24 02/14/21 08:23 Wound Care Nurse 3 3-left posterior heel -Ulcer Cleansing Rinsed/ Irrigated with Saline -Foul Odor after Cleansing No -Primary Dressing Applied Aquacel AG 4x4 -Primary Dressing Covered/Secured with Dry Gauze & Roll Gauze, Secured with Tape -Aquacel AG 4x4 1 Pain Scale: 0-10 Numeric Is Patient Pain Free? Yes - Visit Discharge Discharge Condition Stable Ambulatory Status Ambulatory, Walker Transportation Private Auto Medication Reconcilliation completed & Yes provided to patient/care provider Clinical Summary of Care Provided Yes Wound debrided: plantar left heel Wound Grade/Stage: 3 Type of Debridement: Excisional debridement Anesthesia Used: 4% Lidocaine Solution Depth: in the subcutaneous layer Percentage of wound debrided: 100 Instrument Used: #15 blade Tissue Removed: fibrous, devitalized subcutaneous, biofilm, slough Severity: Fat Layer Exposed Amount of bleeding with debridement: Mild Bleeding Controlled with: Pressure Patient tolerated procedure: Patient tolerated procedure well Assessment/Plan Assessment/Plan (1) Non-pressure chronic ulcer of other part of left foot with fat layer exposed: CODE(S): L97.522 - Non-pressure chronic ulcer of other part of left foot with fat layer exposed (2) Type 2 diabetes mellitus with diabetic polyneuropathy: CODE(S): E11.42 - Type 2 diabetes mellitus with diabetic polyneuropathy (3) PVD (peripheral vascular disease): CODE(S): I73.9 - Peripheral vascular disease, unspecified PLAN: This patient was examined and evaluated today. Subcutaneous excisional debridement was performed as noted in the clinical panel to the plantar ulcer site. To continue washing his foot with Dial soap and water. It is imperative that he keep pressure off of this site. To change daily dressing with Aquacel Ag. He was reassured no signs of infection or erythema are noted today. He was reassured no local signs of infection noted today. His C. difficile history is also noted. He was advised to continue knee roller use at home to aid with compliance. He certainly has many comorbidities and this makes him higher risk for infection and delayed healing. It is noted his noninvasive vascular studies were abnormal again and he has had previous lower extremity ulcers with significant delayed healing. He was advised to follow-up with Dr. Beck, vascular surgeon, as scheduled and advised. He has had prior intervention already. He is not able to come to the wound care center on a weekly basis and is not ready to commit to this process. He is amenable to coming to clinic every 3 to 4 weeks only. He is on a palliative care program at this time. Note: [employer] speech recognition stripping and booking machine operator software was used to create portions of this document. Sound-alike and misspelled words, as well as other stripping and booking machine operator errors may be contained in the documentation.
== END 2021-02-24 23:59 ==
LOC: WC 08:00
PROVIDERS: Family Provider Family Medicine; PCP Family Medicine; Referring Provider Podiatrist; Visit Provider Podiatrist
DX: E11.621 Type 2 diabetes mellitus with foot ulcer (principal); L97.422 Non-pressure chronic ulcer of left heel and midfoot with fat layer exposed; E11.42 Type 2 diabetes mellitus with diabetic polyneuropathy; E11.51 Type 2 diabetes mellitus with diabetic peripheral angiopathy without gangrene; E66.3 Overweight; Z68.27 Body mass index [BMI] 27.0-27.9, adult; Z79.84 Long term (current) use of oral hypoglycemic drugs; Z79.82 Long term (current) use of aspirin; Z79.899 Other long term (current) drug therapy; Z86.19 Personal history of other infectious and parasitic diseases
CPT/HCPCS: 11042

== ENCOUNTER 2021-03-14 08:00 | Outpatient (RCR) | payer MEDICARE, SELFPAY ==
[2021-02-25 00:19] VITALS: BP 172/79; PULSE 81; RESP 16; TEMP 36
--- NOTE | 2021-02-26 16:17 | WC ---
Ariadne from [facility] called concerned that patient's wound did not look good today. She noted a strong foul odor coming from his ulcer with thick green drainage. Patient is cuurently not on any antibiotics and reluctant to have it treated in ER. I called and left a message on Ariadne's voicemail that I would reach out to him regarding our recommendation. Called patient's cell and there was no answer but left a detailed message stating with his medical health history, not to wait treatment and to report to a local ER or urgent care for treatment. Requested that he call the nurses line at [facility] letting us know he received our call.
[2021-03-14 08:13] VITALS: BP 150/88; PULSE 66; RESP 18; TEMP 36.4; BMI 27.3
--- NOTE | 2021-03-14 09:16 | PN.PCM_ITS ---
History of Present Illness Date of Service: 03/14/21 Chief Complaint: Left heel ulcer History of Wound: This 75-year-old male with multiple comorbidities was seen today for left plantar heel ulcer. He has a history of prior osteomyelitis and has completed medical and surgical intervention. He denies odor, redness, warmth. He is on a palliative care plan. He denies fever, chill, nausea, vomiting. His nurse was concerned about some redness to his heel last week which is not present today. He did go to the urgent center placed on oral antibiotics of doxycycline. He completed the course and denies local redness or odor. He lives alone he continues to walk on the wound. He is on a palliative care plan. Progress of Wound: Stable with no local infection Objective Data Objective Data Vital Signs: Vital Signs Temp Pulse Resp BP 97.5 F L 66 18 150/88 H 03/14/21 08:13 03/14/21 08:13 03/14/21 08:13 03/14/21 08:13 Body Mass Index (BMI) 27.3 Physical Exam Const alert and oriented x3 General Appearance: cooperative HEENT normocephalic Extremity Extremity Narrative: No calf tenderness Diminished pulses Muscle wasting noted Calcaneus style limb position is consistent with his prior Achilles rupture General Extremity: edema and no tenderness to palpation of joints or extremities; Negative for cyanosis Skin Skin Narrative: no purulence, no streaking, no odor, no infection. Deep wound with granular base and no visualized bone. Peripheral hyperkeratotic tissue noted General Skin Exam: Negative for erythema Neuro Neuro Narrative: lack of normal epicritic sensation via light touch is consistent with neuropathy status Psych cooperative and affect normal Debridement Note Debridement Note Post-Debridement Measurements and Additional Note: Post-Debridement Measurements/Treatment - Nurse 1 - General Ulcer Assessment Start: 03/14/21 08:13 Freq: Status: Active Protocol: WC.LOWLYDIAT Activity Type Activity Date Activity User E-Sign Co-Sign Detail Recorded Client Recorded Date Recorded By Document 03/14/21 08:13 Desktop 03/14/21 08:16 RB 03/14/21 08:13 - Today's Visit Information Type of service Follow-up Visit (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/TECHNICAL WRITER AND EDITOR ) Arrival Mode Ambulatory, Walker Transfer Assistance None Patient Identification Verified (Name & Yes ) Patient Requires Transmission-Based No Precautions Height and Weight Body Mass Index (BMI) 27.3 BMI Classification Overweight Vital Signs Temperature (97.8 F-99.1 F) 97.5 F L Temperature Source Temporal Pulse Rate (60-100) 66 Pulse Location Apical Respiratory Rate (12-18) 18 Respiratory rate source Observation Blood Pressure (90/60-120/80) 150/88 H Blood Pressure Mean (mm Hg) 108 Source Monitor Position Semi-Fowlers Blood Pressure Location Left Arm History Since Last Visit- (Skip if this is Patient's initial visit) Have you changed medications since your No last visit? Any new allergies or adverse reactions No Had a fall/change in ADL's that may No increase risk of falls Signs or symptoms of abuse and/or No neglect since last visit Have you been in the hospital since your No last visit? Has dressing in place as prescribed Yes Has compression in place as prescribed No Has offloadiing in place as prescribed No Experienced any changes in pain level or No management Left Footwear Slipper Right Footwear Slipper Pain Scale: 0-10 Numeric Is Patient Pain Free? Yes WC - Nurse 1 - General Ulcer Measurement Start: 03/14/21 08:13 Freq: Status: Active Protocol: Activity Type Activity Date Activity User E-Sign Co-Sign Detail Recorded Client Recorded Date Recorded By Document 03/14/21 08:13 [facility] Desktop 03/14/21 08:16 RB 03/14/21 08:13 Wound Center Nurse 1 3-left posterior heel -Combined with other wound No -Current Size (cm) - Length 1.3 -Current Size (cm) - Width 2 -Current Size (cm) - Depth 0.8 -Total Square Cm 2.6 -Tunneling No -Undermining/Tunneling Yes -Undermining/Tunneling Starts (O'clock 7 ) -Undermining/Tunneling Ends (O'clock) 8 -Maximum Distance (cm) 0.4 -Exudate Amt Large -Exudate Type Serosanguineous -Wound Margin Thickened & Rolled Under -Granulation Amt Large (67-100%) -Granulation Quality [place] -Slough/Fibrin Yes -Necrosis Amt Small (1-33%) -Necrotic Tissue Type Adherent Slough -Structure Exposed N/A -Texture (Emily-wound Skin Appearance) Assessed, Scarring -Moisture (Emily-wound Skin Appearance) Assessed -Color (Emily-wound Skin Appearance) Assessed -Temperature (Emily-wound Skin No Abnormality Appearance) (Pt Warm) -Tenderness on Palpation (Emily-wound No Skin Appearance) -Ulcer Cleansing Wound Cleanser -Foul Odor after Cleansing No -Anesthetic Used 4% Lidocaine Solution WC - Nurse 2 - General Ulcer CM Notes Start: 03/14/21 08:13 Freq: Status: Active Protocol: Activity Type Activity Date Activity User E-Sign Co-Sign Detail Recorded Client Recorded Date Recorded By Document 03/14/21 08:25 [facility]AGE [id number] 03/14/21 08:28 [facility] 03/14/21 08:25 Wound Center Nurse 2 -Time 08:25 -Correct Patient Yes -Correct Side, Site, Position Yes -Correct Procedure Yes -Procedure Performed Yes -Type of Procedure Debridement -Clinical Debridement Subcutaneous -Tissue Removed Subcutaneous -Post Debridement (cm) - Length 1.4 -Post Debridement (cm) - Width 2 -Post Debridement (cm) - Depth 0.8 -Total Square (Post) (cm) 2.8 -Area of Debridement (cm) - Length 1.4 -Area of Debridement (cm) - Width 2 -Total Square (Area) (cm) 2.8 -Tunneling No -Undermining/Tunneling No -Circular Undermining No -Wound/Ulcer Outcome Not Healed -Ulcer Cleansing Rinsed/ Irrigated with Saline -Foul Odor after Cleansing No -Bioengineered Tissue No -Bleeding Controlled with Pressure -Offloading Yes -Type of Offloading Knee Walker -Treatment Response Procedure Tolerated Well -Debridement - Subq, 1st 20sq cm Yes Pain Scale: 0-10 Numeric Is Patient Pain Free? Yes - Nurse 3 - General Ulcer D/C NN Start: 03/14/21 08:13 Freq: Status: Active Protocol: Activity Type Activity Date Activity User E-Sign Co-Sign Detail Recorded Client Recorded Date Recorded By Document 03/14/21 08:40 RB Desktop 03/14/21 08:41 RB 03/14/21 08:40 Wound Care Nurse 3 3-left posterior heel -Ulcer Cleansing Rinsed/ Irrigated with Saline -Primary Dressing Applied Aquacel AG 2x2 -Other Dressing abd nurses hat to heel -Primary Dressing Covered/Secured with Dry Gauze,Dry Gauze & Roll Gauze,Secured with Tape -Aquacel AG 2x2 1 Treatment Response Procedure Tolerated Well - Visit Discharge Discharge Condition Stable Ambulatory Status Ambulatory, Walker Transportation Private Auto Medication Reconcilliation completed & No provided to patient/care provider Clinical Summary of Care Provided Yes Notes: [email or web address] Wound debrided: Plantar left heel Wound Grade/Stage: 3 Type of Debridement: Excisional debridement Anesthesia Used: 4% Lidocaine Solution Depth: in the subcutaneous layer Percentage of wound debrided: 100 Instrument Used: #15 blade Tissue Removed: fibrous, devitalized subcutaneous, biofilm, slough Severity: Fat Layer Exposed Amount of bleeding with debridement: Mild Bleeding Controlled with: Pressure Patient tolerated procedure: Patient tolerated procedure well Assessment/Plan Assessment/Plan (1) Non-pressure chronic ulcer of other part of left foot with fat layer exposed: CODE(S): L97.522 - Non-pressure chronic ulcer of other part of left foot with fat layer exposed (2) Type 2 diabetes mellitus with diabetic polyneuropathy: CODE(S): E11.42 - Type 2 diabetes mellitus with diabetic polyneuropathy (3) PVD (peripheral vascular disease): CODE(S): I73.9 - Peripheral vascular disease, unspecified (4) Cellulitis of left lower limb: CODE(S): L03.116 - Cellulitis of left lower limb PLAN: This patient was examined and evaluated today. Subcutaneous excisional debridement was performed as noted in the clinical panel to the [facility] ulcer site. His recent cellulitis treatment was noted. He completed a course of doxycycline and I do not recommend continuation due to lack of local or systemic illness. His microbiology report will be requested from the urgent center in case he has recurrence. It is noted he was seen in urgent center in [facility] in [place]. To continue washing his foot with Dial soap and water. It is imperative that he keep pressure off of this site. To change daily dressing with Aquacel Ag. He was reassured no signs of infection or erythema are noted today. He was reassured no local signs of infection noted today. His C. difficile history is also noted. He was advised to continue knee roller use at home to aid with compliance. He certainly has many comorbidities and this makes him higher risk for infection and delayed healing. It is noted his noninvasive vascular studies were abnormal again and he has had previous lower extremity ulcers with significant delayed healing. He was advised to follow-up with Dr. Beck, vascular surgeon, as scheduled and advised. He has had prior intervention already. He is not able to come to the wound care center on a weekly basis and is not ready to commit to this process. He is amenable to coming to clinic every 3 to 4 weeks only. He is on a palliative care program at this time. Note: [employer] speech recognition quarry supervisor software was used to create portions of this document. Sound-alike and misspelled words, as well as other quarry supervisor errors may be contained in the documentation. 12 minutes was spent on this encounter. This included face to face and non face to face care including preparing for the visit, reviewing the history, performing the exam, counseling and providing education to the patient, family, or caregiver, ordering medications/test/ procedures if indicated as documented, communicating with other healthcare providers, documenting information in the medical record, interpreting / sharing this information when indicated as documented, and care coordination.
== END 2021-03-27 23:59 ==
LOC: WC 08:00
PROVIDERS: Family Provider Family Medicine; PCP Family Medicine; Referring Provider Podiatrist; Visit Provider Podiatrist
DX: E11.621 Type 2 diabetes mellitus with foot ulcer (principal); L97.422 Non-pressure chronic ulcer of left heel and midfoot with fat layer exposed; L03.116 Cellulitis of left lower limb; E11.51 Type 2 diabetes mellitus with diabetic peripheral angiopathy without gangrene; E11.42 Type 2 diabetes mellitus with diabetic polyneuropathy; E66.3 Overweight; Z68.27 Body mass index [BMI] 27.0-27.9, adult; Z79.84 Long term (current) use of oral hypoglycemic drugs; Z79.82 Long term (current) use of aspirin; Z79.899 Other long term (current) drug therapy; Z87.39 Personal history of other diseases of the musculoskeletal system and connective tissue
CPT/HCPCS: 11042

== ENCOUNTER 2021-04-11 08:00 | Outpatient (RCR) | payer MEDICARE, SELFPAY ==
[2021-03-28 00:24] VITALS: BP 150/88; PULSE 66; RESP 18; TEMP 36.4; BMI 27.3
[2021-04-11 07:59] VITALS: BP 158/89; PULSE 79; RESP 18; TEMP 36; BMI 27.3
--- NOTE | 2021-04-11 09:07 | PCM.WC.PN ---
History of Present Illness Date of Service: 04/11/21 Chief Complaint: Left heel ulcer History of Wound: This 75-year-old male with multiple comorbidities was seen today for left plantar heel ulcer. He has a history of prior osteomyelitis and has completed medical and surgical intervention. He denies odor, redness, warmth. He is on a palliative care plan. He denies fever, chill, nausea, vomiting. His nurse was concerned about a new wound to the medial heel which opened within the past 1 to 2 weeks. His nurse did also previously reach out to me and did not notice any signs of infection. He denies feeling ill. He has been applying Aquacel Ag to the site. He denies injury. He has not been very active and has not been participating in any outdoor yard work projects. Progress of Wound: Improving plantar New medial heel Objective Data Objective Data Vital Signs: Vital Signs Temp Pulse Resp BP 96.8 F L 79 18 158/89 H 04/11/21 07:59 04/11/21 07:59 04/11/21 07:59 04/11/21 07:59 Body Mass Index (BMI) 27.3 Physical Exam Const alert and oriented x3 General Appearance: cooperative HEENT normocephalic Extremity Extremity Narrative: No calf tenderness Diminished pulses Muscle wasting noted General Extremity: edema and no tenderness to palpation of joints or extremities; Negative for cyanosis Skin Skin Narrative: no purulence, no streaking, no odor, no infection. Plantar wound peripheral epithelialization is noted. There is a new skin discontinuity to the medial heel with granular base. This does not probe directly in communication with the plantar heel ulcer. There is no bogginess or fluctuance on palpation. General Skin Exam: Negative for erythema Neuro Neuro Narrative: lack of normal epicritic sensation via light touch is consistent with neuropathy status Psych cooperative and affect normal Debridement Note Debridement Note Wound debrided: plantar heel, medial heel Wound Grade/Stage: 3/1 Type of Debridement: Excisional debridement Anesthesia Used: 4% Lidocaine Solution Depth: in the subcutaneous layer Percentage of wound debrided: 100 Instrument Used: #15 blade Tissue Removed: fibrous, devitalized subcutaneous, biofilm, slough Severity: Fat Layer Exposed Amount of bleeding with debridement: Mild Bleeding Controlled with: Pressure Patient tolerated procedure: Patient tolerated procedure well Post-Debridement Measurements and Additional Note: Post-Debridement Measurements/Treatment WC - Nurse 1 - General Ulcer Assessment Start: 04/11/21 07:59 Freq: Status: Active Protocol: .TELMA Activity Type Activity Date Activity User E-Sign Co-Sign Detail Recorded Client Recorded Date Recorded By Document 04/11/21 07:59 [facility] Desktop 04/11/21 08:06 [facility] 04/11/21 07:59 WC - Today's Visit Information Type of service Follow-up Visit (Physician/SECRETARY RECEPTIONIST ) Arrival Mode Ambulatory, Walker Transfer Assistance None Patient Identification Verified (Name & Yes ) Patient Requires Transmission-Based No Precautions Height and Weight Body Mass Index (BMI) 27.3 BMI Classification Overweight Vital Signs Temperature (97.8 F-99.1 F) 96.8 F L Temperature Source Temporal Pulse Rate (60-100) 79 Pulse Location Monitor Respiratory Rate (12-18) 18 Respiratory rate source Observation Blood Pressure (90/60-120/80) 158/89 H Blood Pressure Mean (mm Hg) 112 Source Monitor Position Semi-Fowlers Blood Pressure Location Left Arm History Since Last Visit- (Skip if this is Patient's initial visit) Have you changed medications since your No last visit? Any new allergies or adverse reactions No Had a fall/change in ADL's that may No increase risk of falls Signs or symptoms of abuse and/or No neglect since last visit Have you been in the hospital since your No last visit? Has dressing in place as prescribed Yes Has compression in place as prescribed No Has offloadiing in place as prescribed Yes Experienced any changes in pain level or No management Pain Scale: 0-10 Numeric Is Patient Pain Free? Yes - Nurse 1 - General Ulcer Measurement Start: 04/11/21 07:59 Freq: Status: Active Protocol: Activity Type Activity Date Activity User E-Sign Co-Sign Detail Recorded Client Recorded Date Recorded By Document 04/11/21 07:59 [facility] [employer] 04/11/21 08:06 [facility] 04/11/21 07:59 Wound Center Nurse 1 5. L MEDIAL ANKLE -Combined with other wound No -Current Size (cm) - Length 0.5 -Current Size (cm) - Width 0.9 -Current Size (cm) - Depth 0.5 -Total Square Cm 0.45 -Tunneling No -Undermining/Tunneling Yes -Undermining/Tunneling Starts (O'clock 4 ) -Undermining/Tunneling Ends (O'clock) 8 -Maximum Distance (cm) 0.9 -Circular Undermining No -Exudate Amt Medium -Exudate Type Serosanguineous -Wound Margin Thickened & Rolled Under -Granulation Amt Medium (34-66%) -Granulation Quality [place] -Slough/Fibrin Yes -Necrosis Amt Small (1-33%) -Necrotic Tissue Type Adherent Slough -Structure Exposed N/A -Texture (Emily-wound Skin Appearance) Assessed -Moisture (Emily-wound Skin Appearance) Assessed -Color (Emily-wound Skin Appearance) Assessed -Temperature (Emily-wound Skin No Abnormality Appearance) (Pt Warm) -Tenderness on Palpation (Emily-wound No Skin Appearance) -Ulcer Cleansing Wound Cleanser -Foul Odor after Cleansing No -Anesthetic Used 5% Lidocaine Gel 3-left posterior heel -Combined with other wound No -Current Size (cm) - Length 1.4 -Current Size (cm) - Width 0.9 -Current Size (cm) - Depth 1 -Total Square Cm 1.26 -Tunneling No -Undermining/Tunneling Yes -Undermining/Tunneling Starts (O'clock 5 ) -Undermining/Tunneling Ends (O'clock) 9 -Maximum Distance (cm) 0.6 -Circular Undermining No -Exudate Amt Medium -Exudate Type Serosanguineous -Wound Margin Thickened & Rolled Under -Granulation Amt Medium (34-66%) -Granulation Quality [place] -Slough/Fibrin Yes -Necrosis Amt Small (1-33%) -Necrotic Tissue Type Adherent Slough -Structure Exposed N/A -Texture (Emily-wound Skin Appearance) Assessed -Moisture (Emily-wound Skin Appearance) Assessed -Color (Emily-wound Skin Appearance) Assessed -Temperature (Emily-wound Skin No Abnormality Appearance) (Pt Warm) -Tenderness on Palpation (Emily-wound No Skin Appearance) -Ulcer Cleansing Wound Cleanser -Foul Odor after Cleansing No -Anesthetic Used 5% Lidocaine Gel WC - Nurse 2 - General Ulcer CM Notes Start: 04/11/21 07:59 Freq: Status: Active Protocol: Activity Type Activity Date Activity User E-Sign Co-Sign Detail Recorded Client Recorded Date Recorded By Document 04/11/21 08:22 GAGE [id number] 04/11/21 08:25 GAGE 04/11/21 08:22 Wound Center Nurse 2 5. L MEDIAL ANKLE -Time 08:22 -Correct Patient Yes -Correct Side, Site, Position Yes -Correct Procedure Yes -Procedure Performed Yes -Type of Procedure Debridement -Clinical Debridement Subcutaneous -Tissue Removed Subcutaneous -Post Debridement (cm) - Length 0.5 -Post Debridement (cm) - Width 1 -Post Debridement (cm) - Depth 0.5 -Total Square (Post) (cm) 0.5 -Area of Debridement (cm) - Length 0.5 -Area of Debridement (cm) - Width 1 -Total Square (Area) (cm) 0.5 -Tunneling No -Undermining/Tunneling No -Circular Undermining No -Wound/Ulcer Outcome Not Healed -Ulcer Cleansing Rinsed/ Irrigated with Saline -Foul Odor after Cleansing No -Bioengineered Tissue No -Bleeding Controlled with Pressure -Offloading Yes -Type of Offloading Knee Walker -Treatment Response Procedure Tolerated Well -Debridement - Subq, 1st 20sq cm No 3-left posterior heel -Time 08:23 -Correct Patient Yes -Correct Side, Site, Position Yes -Correct Procedure Yes -Procedure Performed Yes -Type of Procedure Debridement -Clinical Debridement Subcutaneous -Tissue Removed Subcutaneous -Post Debridement (cm) - Length 1.5 -Post Debridement (cm) - Width 1 -Post Debridement (cm) - Depth 1 -Total Square (Post) (cm) 1.5 -Area of Debridement (cm) - Length 1.5 -Area of Debridement (cm) - Width 1 -Total Square (Area) (cm) 1.5 -Tunneling No -Undermining/Tunneling No -Circular Undermining No -Wound/Ulcer Outcome Not Healed -Ulcer Cleansing Rinsed/ Irrigated with Saline -Foul Odor after Cleansing No -Bioengineered Tissue No -Bleeding Controlled with Pressure -Offloading Yes -Type of Offloading Knee Walker -Treatment Response Procedure Tolerated Well -Debridement - Subq, 1st 20sq cm Yes Pain Scale: 0-10 Numeric Is Patient Pain Free? Yes WC - Nurse 3 - General Ulcer D/C NN Start: 04/11/21 07:59 Freq: Status: Active Protocol: Activity Type Activity Date Activity User E-Sign Co-Sign Detail Recorded Client Recorded Date Recorded By Document 04/11/21 08:29 RB [id number] 04/11/21 08:31 RB 04/11/21 08:29 Wound Care Nurse 3 5. L MEDIAL ANKLE -Primary Dressing Applied Aquacel AG 4x4 -Primary Dressing Covered/Secured with Dry Gauze,Dry Gauze & Roll Gauze,Secured with Tape -Aquacel AG 4x4 1 3-left posterior heel -Other Dressing aquacel ag -Primary Dressing Covered/Secured with Dry Gauze,Dry Gauze & Roll Gauze,Secured with Tape Treatment Response Procedure Tolerated Well Pain Scale: 0-10 Numeric Is Patient Pain Free? 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 of necrosis (2) Non-pressure chronic ulcer of other part of left foot with fat layer exposed: CODE(S): L97.522 - Non-pressure chronic ulcer of other part of left foot with fat layer exposed (3) Type 2 diabetes mellitus with diabetic polyneuropathy: CODE(S): E11.42 - Type 2 diabetes mellitus with diabetic polyneuropathy (4) Achilles rupture, left: CODE(S): S86.012A - Strain of left Achilles tendon, initial encounter (5) Delayed wound healing: CODE(S): T14.8XXD - Other injury of unspecified body region, subsequent encounter (6) Malnutrition: CODE(S): E46 - Unspecified protein-calorie malnutrition (7) Palliative care patient: CODE(S): Z51.5 - Encounter for palliative care (8) PVD (peripheral vascular disease): CODE(S): I73.9 - Peripheral vascular disease, unspecified (9) Cellulitis of left lower limb: CODE(S): L03.116 - Cellulitis of left lower limb PLAN: This patient was examined and evaluated today. Subcutaneous excisional debridement was performed as noted in the clinical panel to the plantar ulcer site. He has a new ulcer and this is noted to the medial heel. His new ulcer site does not appear to be communicating with the previous plantar ulcer site nor is there any suspected abscess or purulence today. To continue washing his foot with Dial soap and water. It is imperative that he keep pressure off of this site. To change daily dressing with Aquacel Ag to both sites. He was reassured no signs of infection or erythema are noted today. He was reassured no local signs of infection noted today. His C. difficile history is also noted. This did not appear to be active at this time. He was advised to continue knee roller use at home to aid with compliance. He certainly has many comorbidities and this makes him higher risk for infection and delayed healing. It is noted his noninvasive vascular studies were abnormal again and he has had previous lower extremity ulcers with significant delayed healing. He was advised to follow-up with Dr. Beck, vascular surgeon, as scheduled and advised. He has had prior intervention already. He is not able to come to the wound care center on a weekly basis and is not ready to commit to this process. He is amenable to coming to clinic every 3 to 4 weeks only. He is on a palliative care program at this time. Note: [employer] speech recognition tree and shrub worker software was used to create portions of this document. Sound-alike and misspelled words, as well as other tree and shrub worker errors may be contained in the documentation. The medical decision making level is low. There is noted low risk of morbidity after considering this treatment plan and diagnostic data. The problems addressed require a low medical decision making level which includes two or more minor problems, a stable chronic illness, or an acute uncomplicated illness or injury.
== END 2021-04-26 23:59 ==
LOC: WC 08:00
PROVIDERS: Family Provider Family Medicine; PCP Family Medicine; Referring Provider Podiatrist; Visit Provider Podiatrist
DX: E11.621 Type 2 diabetes mellitus with foot ulcer (principal); L97.422 Non-pressure chronic ulcer of left heel and midfoot with fat layer exposed; L03.116 Cellulitis of left lower limb; E11.42 Type 2 diabetes mellitus with diabetic polyneuropathy; E11.51 Type 2 diabetes mellitus with diabetic peripheral angiopathy without gangrene; R26.2 Difficulty in walking, not elsewhere classified; E66.3 Overweight; Z68.27 Body mass index [BMI] 27.0-27.9, adult; Z79.84 Long term (current) use of oral hypoglycemic drugs; Z79.82 Long term (current) use of aspirin; Z79.899 Other long term (current) drug therapy
CPT/HCPCS: 11042

== ENCOUNTER 2021-05-09 08:00 | Outpatient (RCR) | payer MEDICARE, SELFPAY ==
[2021-04-27 00:18] VITALS: BP 158/89; PULSE 79; RESP 18; TEMP 36; BMI 27.3
[2021-05-09 08:18] VITALS: BP 160/68; PULSE 69; RESP 18; TEMP 36.1; BMI 27.3
--- NOTE | 2021-05-09 08:51 | PN.PCM_ITS ---
History of Present Illness Date of Service: 05/09/21 Chief Complaint: Left heel ulcer History of Wound: This 75-year-old male with multiple comorbidities was seen today for left plantar heel ulcer. He has a history of prior osteomyelitis and has completed medical and surgical intervention. He denies odor, redness, warmth. He is on a palliative care plan. He denies fever, chill, nausea, vomiting. He has been applying Aquacel Ag to the site. He denies injury. Progress of Wound: stable Objective Data Objective Data Vital Signs: Vital Signs Temp Pulse Resp BP 97 F L 69 18 160/68 H 05/09/21 08:18 05/09/21 08:18 05/09/21 08:18 05/09/21 08:18 Body Mass Index (BMI) 27.3 Physical Exam Const alert and oriented x3 General Appearance: cooperative HEENT normocephalic Extremity Extremity Narrative: No calf tenderness Diminished pulses Muscle wasting noted General Extremity: edema and no tenderness to palpation of joints or extremities; Negative for cyanosis Skin Skin Narrative: no purulence, no streaking, no odor, no infection. Plantar wound peripheral epithelialization is noted. There is a decreased size and depth to the skin discontinuity to the medial heel with granular base. This does not probe directly in communication with the plantar heel ulcer. There is no bogginess or fluctuance on palpation. General Skin Exam: Negative for erythema Neuro Neuro Narrative: lack of normal epicritic sensation via light touch is consistent with neuropathy status Psych cooperative and affect normal Debridement Note Debridement Note Wound debrided: medial and plantar left heel Wound Grade/Stage: 3/1 Type of Debridement: Excisional debridement Anesthesia Used: 4% Lidocaine Solution Depth: in the subcutaneous layer Percentage of wound debrided: 100 Instrument Used: #15 blade Tissue Removed: fibrous, devitalized subcutaneous, biofilm, slough Severity: Fat Layer Exposed Amount of bleeding with debridement: Mild Bleeding Controlled with: Pressure Patient tolerated procedure: Patient tolerated procedure well Post-Debridement Measurements and Additional Note: Post-Debridement Measurements/Treatment WC - Nurse 1 - General Ulcer Assessment Start: 05/09/21 08:18 Freq: Status: Active Protocol: MALIK Activity Type Activity Date Activity User E-Sign Co-Sign Detail Recorded Client Recorded Date Recorded By Document 05/09/21 08:18 RB Desktop 05/09/21 08:20 RB 05/09/21 08:18 - Today's Visit Information Type of service Follow-up Visit (Physician/AERODYNAMICS ENGINEER ) Arrival Mode Ambulatory, Other Arrival Mode (Other) kneewalker Transfer Assistance None Patient Identification Verified (Name & Yes ) Patient Requires Transmission-Based No Precautions Height and Weight Body Mass Index (BMI) 27.3 BMI Classification Overweight Vital Signs Temperature (97.8 F-99.1 F) 97 F L Temperature Source Temporal Pulse Rate (60-100) 69 Pulse Location Monitor Respiratory Rate (12-18) 18 Respiratory rate source Observation Blood Pressure (90/60-120/80) 160/68 H Blood Pressure Mean (mm Hg) 98 Source Monitor Position Sitting Blood Pressure Location Left Arm History Since Last Visit- (Skip if this is Patient's initial visit) Have you changed medications since your No last visit? Any new allergies or adverse reactions No Had a fall/change in ADL's that may No increase risk of falls Signs or symptoms of abuse and/or No neglect since last visit Have you been in the hospital since your No last visit? Has dressing in place as prescribed Yes Has compression in place as prescribed No Has offloadiing in place as prescribed Yes Experienced any changes in pain level or No management Pain Scale: 0-10 Numeric Is Patient Pain Free? Yes - Nurse 1 - General Ulcer Measurement Start: 05/09/21 08:18 Freq: Status: Active Protocol: Activity Type Activity Date Activity User E-Sign Co-Sign Detail Recorded Client Recorded Date Recorded By Document 05/09/21 08:18 Desktop 05/09/21 08:20 05/09/21 08:18 Wound Center Nurse 1 5. L MEDIAL ANKLE -Combined with other wound No -Current Size (cm) - Length 0.3 -Current Size (cm) - Width 0.3 -Current Size (cm) - Depth 0.3 -Total Square Cm 0.09 -Tunneling No -Undermining/Tunneling No -Circular Undermining No -Exudate Amt Small -Exudate Type Serosanguineous -Wound Margin Distinct, Outline Attached -Granulation Amt Medium (34-66%) -Granulation Quality [place] -Slough/Fibrin Yes -Necrosis Amt Small (1-33%) -Necrotic Tissue Type Adherent Slough -Structure Exposed N/A -Texture (Emily-wound Skin Appearance) Assessed -Moisture (Emily-wound Skin Appearance) Assessed -Color (Emily-wound Skin Appearance) Assessed -Temperature (Emily-wound Skin No Abnormality Appearance) (Pt Warm) -Tenderness on Palpation (Emily-wound No Skin Appearance) -Ulcer Cleansing Wound Cleanser -Foul Odor after Cleansing No -Anesthetic Used 4% Lidocaine Solution 3-left posterior heel -Current Size (cm) - Length 0.8 -Current Size (cm) - Width 0.6 -Current Size (cm) - Depth 0.8 -Total Square Cm 0.48 -Tunneling No -Undermining/Tunneling Yes -Undermining/Tunneling Starts (O'clock 4 ) -Undermining/Tunneling Ends (O'clock) 7 -Maximum Distance (cm) 0.7 -Circular Undermining No -Exudate Amt Large -Exudate Type Serosanguineous -Wound Margin Thickened & Rolled Under -Granulation Amt Medium (34-66%) -Granulation Quality [place] -Slough/Fibrin Yes -Necrosis Amt Medium (34-66%) -Necrotic Tissue Type Adherent Slough -Structure Exposed N/A -Texture (Emily-wound Skin Appearance) Callus,Scarring -Moisture (Emily-wound Skin Appearance) Assessed -Color (Emily-wound Skin Appearance) Assessed -Temperature (Emily-wound Skin No Abnormality Appearance) (Pt Warm) -Tenderness on Palpation (Emily-wound No Skin Appearance) -Ulcer Cleansing Wound Cleanser -Foul Odor after Cleansing No -Anesthetic Used 4% Lidocaine Solution WC - Nurse 2 - General Ulcer CM Notes Start: 05/09/21 08:18 Freq: Status: Active Protocol: Activity Type Activity Date Activity User E-Sign Co-Sign Detail Recorded Client Recorded Date Recorded By Document 05/09/21 08:24 GAGE [id number] 05/09/21 08:30 GAGE 05/09/21 08:24 Wound Center Nurse 2 5. L MEDIAL ANKLE -Time 08:25 -Correct Patient Yes -Correct Side, Site, Position Yes -Correct Procedure Yes -Procedure Performed Yes -Type of Procedure Debridement -Clinical Debridement Subcutaneous -Tissue Removed Subcutaneous, Fascia -Post Debridement (cm) - Length 0.3 -Post Debridement (cm) - Width 0.4 -Post Debridement (cm) - Depth 0.2 -Total Square (Post) (cm) 0.12 -Area of Debridement (cm) - Length 0.3 -Area of Debridement (cm) - Width 0.4 -Total Square (Area) (cm) 0.12 -Tunneling No -Undermining/Tunneling No -Circular Undermining No -Wound/Ulcer Outcome Not Healed -Ulcer Cleansing Rinsed/ Irrigated with Saline -Foul Odor after Cleansing No -Bioengineered Tissue No -Bleeding Controlled with Pressure -Offloading Yes -Type of Offloading Knee Walker -Treatment Response Procedure Tolerated Well -Debridement - Subq, 1st 20sq cm No 3-left posterior heel -Time 08:27 -Correct Patient Yes -Correct Side, Site, Position Yes -Correct Procedure Yes -Procedure Performed Yes -Type of Procedure Debridement -Clinical Debridement Subcutaneous -Tissue Removed Subcutaneous -Post Debridement (cm) - Length 1 -Post Debridement (cm) - Width 0.6 -Post Debridement (cm) - Depth 1.8 -Total Square (Post) (cm) 0.6 -Area of Debridement (cm) - Length 1 -Area of Debridement (cm) - Width 0.6 -Total Square (Area) (cm) 0.6 -Tunneling No -Undermining/Tunneling No -Circular Undermining No -Wound/Ulcer Outcome Not Healed -Ulcer Cleansing Rinsed/ Irrigated with Saline -Foul Odor after Cleansing No -Bioengineered Tissue No -Bleeding Controlled with Pressure -Offloading Yes -Type of Offloading Knee Walker -Treatment Response Procedure Tolerated Well -Debridement - Subq, 1st 20sq cm Yes - Nurse 3 - General Ulcer D/C NN Start: 05/09/21 08:18 Freq: Status: Active Protocol: Activity Type Activity Date Activity User E-Sign Co-Sign Detail Recorded Client Recorded Date Recorded By Document 05/09/21 08:40 DL Desktop 05/09/21 08:42 DL 05/09/21 08:40 Wound Care Nurse 3 -Ulcer Cleansing Soap and Water -Foul Odor after Cleansing No -Primary Dressing Applied Aquacel AG 4x4 -Primary Dressing Covered/Secured with Dry Gauze & Roll Gauze, Secured with Tape -Aquacel AG 4x4 1 Treatment Response Procedure Tolerated Well Pain Scale: 0-10 Numeric Is Patient Pain Free? 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 of necrosis (2) Non-pressure chronic ulcer of other part of left foot with fat layer exposed: CODE(S): L97.522 - Non-pressure chronic ulcer of other part of left foot with fat layer exposed (3) Type 2 diabetes mellitus with diabetic polyneuropathy: CODE(S): E11.42 - Type 2 diabetes mellitus with diabetic polyneuropathy (4) Achilles rupture, left: CODE(S): S86.012A - Strain of left Achilles tendon, initial encounter (5) Delayed wound healing: CODE(S): T14.8XXD - Other injury of unspecified body region, subsequent encounter (6) Malnutrition: CODE(S): E46 - Unspecified protein-calorie malnutrition (7) Palliative care patient: CODE(S): Z51.5 - Encounter for palliative care (8) PVD (peripheral vascular disease): CODE(S): I73.9 - Peripheral vascular disease, unspecified (9) Cellulitis of left lower limb: CODE(S): L03.116 - Cellulitis of left lower limb PLAN: This patient was examined and evaluated today. Subcutaneous excisional debridement was performed as noted in the clinical panel to the plantar ulcer site. He has a new ulcer and this is noted to the medial heel. His new ulcer site does not appear to be communicating with the previous plantar ulcer site nor is there any suspected abscess or purulence today. To continue washing his foot with Dial soap and water. It is imperative that he keep pressure off of this site. To change daily dressing with Aquacel Ag to both sites. He was reassured no signs of infection or erythema are noted today. He was advised to continue knee roller use at home to aid with compliance. He certainly has many comorbidities and this makes him higher risk for infection and delayed healing. It is noted his noninvasive vascular studies were abnormal again and he has had previous lower extremity ulcers with significant delayed healing. He was advised to follow-up with Dr. Beck, vascular surgeon, as scheduled and advised. He has had prior intervention already. He is not able to come to the wound care center on a weekly basis and is not ready to commit to this process. He is amenable to coming to clinic every 3 to 4 weeks only. He is on a palliative care program at this time. Note: [employer] speech recognition medical supply technician software was used to create portions of this document. Sound-alike and misspelled words, as well as other medical supply technician errors may be contained in the documentation.
== END 2021-05-27 23:59 ==
LOC: WC 08:00
PROVIDERS: Family Provider Family Medicine; PCP Family Medicine; Referring Provider Podiatrist; Visit Provider Podiatrist
DX: E11.621 Type 2 diabetes mellitus with foot ulcer (principal); L97.422 Non-pressure chronic ulcer of left heel and midfoot with fat layer exposed; L03.116 Cellulitis of left lower limb; E11.51 Type 2 diabetes mellitus with diabetic peripheral angiopathy without gangrene; E11.42 Type 2 diabetes mellitus with diabetic polyneuropathy; E66.3 Overweight; Z68.27 Body mass index [BMI] 27.0-27.9, adult; Z79.84 Long term (current) use of oral hypoglycemic drugs; Z79.82 Long term (current) use of aspirin; Z79.899 Other long term (current) drug therapy
CPT/HCPCS: 11042

== ENCOUNTER 2021-06-06 08:00 | Outpatient (RCR) | payer MEDICARE, SELFPAY ==
[2021-05-28 00:15] VITALS: BP 160/68; PULSE 69; RESP 18; TEMP 36.1; BMI 27.3
[2021-06-06 08:01] VITALS: BP 173/93; PULSE 75; RESP 18; TEMP 35.9; BMI 27.3
--- NOTE | 2021-06-06 10:31 | PN.PCM_ITS ---
History of Present Illness Date of Service: 06/06/21 Chief Complaint: Left heel ulcer History of Wound: This 76-year-old male with multiple comorbidities was seen today for left plantar heel ulcer. He has a history of prior osteomyelitis and has completed medical and surgical intervention. He denies odor, redness, warmth. He is on a palliative care plan. He denies fever, chill, nausea, vomiting. He has been applying Aquacel Ag to the site. He denies injury. Progress of Wound: Stable and mild improvement plantar Objective Data Objective Data Vital Signs: Vital Signs Temp Pulse Resp BP 96.6 F L 75 18 173/93 H 06/06/21 08:01 06/06/21 08:01 06/06/21 08:01 06/06/21 08:01 Body Mass Index (BMI) 27.3 Physical Exam Const alert and oriented x3 General Appearance: cooperative HEENT normocephalic Extremity Extremity Narrative: No calf tenderness Diminished pulses Muscle wasting noted General Extremity: edema and no tenderness to palpation of joints or extremities; Negative for cyanosis Skin Skin Narrative: no purulence, no streaking, no odor, no infection. Plantar wound peripheral epithelialization is noted. There is a decreased size and depth to the skin discontinuity to the medial heel with granular base. This does not probe directly in communication with the plantar heel ulcer. There is no bogginess or fluctuance on palpation. Plantar medial aspect with continued epithelialization merging into the wound bed. General Skin Exam: Negative for erythema Neuro Neuro Narrative: lack of normal epicritic sensation via light touch is consistent with neuropathy status Psych cooperative and affect normal Debridement Note Debridement Note Wound debrided: Plantar medial left heel Wound Grade/Stage: 3 Type of Debridement: Excisional debridement Anesthesia Used: 4% Lidocaine Solution Depth: in the subcutaneous layer Percentage of wound debrided: 100 Instrument Used: #15 blade Tissue Removed: fibrous, devitalized subcutaneous, biofilm, slough Severity: Fat Layer Exposed Amount of bleeding with debridement: Mild Bleeding Controlled with: Pressure Patient tolerated procedure: Patient tolerated procedure well Post-Debridement Measurements and Additional Note: Post-Debridement Measurements/Treatment WC - Nurse 1 - General Ulcer Assessment Start: 06/06/21 08:01 Freq: Status: Active Protocol: MALIK Activity Type Activity Date Activity User E-Sign Co-Sign Detail Recorded Client Recorded Date Recorded By Document 06/06/21 08:01 DL Desktop 06/06/21 08:05 DL Edit Result 06/06/21 08:01 DL (1) Desktop 06/06/21 08:09 DL (1) Pulse Rate (60-100) => 75 Pulse Location => Monitor Blood Pressure (90/60-120/80) => 173/93 H Blood Pressure Mean (mm Hg) => 119 Source => Monitor 06/06/21 08:01 WC - Today's Visit Information Type of service Follow-up Visit (Physician/[employer] SERVICE TECHNICIAN ) Arrival Mode Ambulatory, Walker Transfer Assistance None Patient Identification Verified (Name & Yes ) Patient Requires Transmission-Based No Precautions Finger Stick Blood Sugar(mg/dl) (if didnt check indicated): Blood Sugar Stated by Patient Height and Weight Body Mass Index (BMI) 27.3 BMI Classification Overweight Vital Signs Temperature (97.8 F-99.1 F) 96.6 F L Temperature Source Temporal Pulse Rate (60-100) 75 Pulse Location Monitor Respiratory Rate (12-18) 18 Respiratory rate source Observation Blood Pressure (90/60-120/80) 173/93 H Blood Pressure Mean (mm Hg) 119 Source Monitor History Since Last Visit- (Skip if this is Patient's initial visit) Have you changed medications since your No last visit? Any new allergies or adverse reactions No Had a fall/change in ADL's that may No increase risk of falls Signs or symptoms of abuse and/or No neglect since last visit Have you been in the hospital since your No last visit? Has dressing in place as prescribed Yes Has compression in place as prescribed N/A Has offloadiing in place as prescribed Yes Experienced any changes in pain level or No management Pain Scale: 0-10 Numeric Is Patient Pain Free? Yes - Nurse 1 - General Ulcer Measurement Start: 06/06/21 08:01 Freq: Status: Active Protocol: Activity Type Activity Date Activity User E-Sign Co-Sign Detail Recorded Client Recorded Date Recorded By Document 06/06/21 08:01 DL Desktop 06/06/21 08:05 DL 06/06/21 08:01 Wound Center Nurse 1 5. L MEDIAL ANKLE -Current Size (cm) - Length 0.4 -Current Size (cm) - Width 0.5 -Current Size (cm) - Depth 0.3 -Total Square Cm 0.20 -Photo Taken No -Exudate Amt Medium -Exudate Type Serosanguineous -Wound Margin Distinct, Outline Attached -Granulation Amt Medium (34-66%) -Granulation Quality Gunbarrel -Necrosis Amt Medium (34-66%) -Necrotic Tissue Type Adherent Slough -Structure Exposed N/A -Texture (Emily-wound Skin Appearance) Localized Edema ,Scarring -Moisture (Emily-wound Skin Appearance) Maceration -Color (Emily-wound Skin Appearance) No Abnormality -Temperature (Emily-wound Skin No Abnormality Appearance) (Pt Warm) -Tenderness on Palpation (Emily-wound No Skin Appearance) -Ulcer Cleansing Soap and Water -Foul Odor after Cleansing No -Anesthetic Used 5% Lidocaine Gel 3-left posterior heel -Current Size (cm) - Length 0.7 -Current Size (cm) - Width 0.5 -Current Size (cm) - Depth 0.7 -Total Square Cm 0.35 -Photo Taken No -Undermining/Tunneling Starts (O'clock 11 ) -Undermining/Tunneling Ends (O'clock) 3 -Maximum Distance (cm) 0.1 -Circular Undermining No -Exudate Amt Medium -Exudate Type Serosanguineous -Wound Margin Thickened & Rolled Under -Granulation Amt Large (67-100%) -Granulation Quality Gunbarrel -Necrosis Amt Small (1-33%) -Necrotic Tissue Type Adherent Slough -Structure Exposed N/A -Texture (Emily-wound Skin Appearance) Localized Edema ,Scarring -Moisture (Emily-wound Skin Appearance) Maceration -Color (Emily-wound Skin Appearance) No Abnormality -Temperature (Emily-wound Skin No Abnormality Appearance) (Pt Warm) -Tenderness on Palpation (Emily-wound No Skin Appearance) -Ulcer Cleansing Soap and Water -Foul Odor after Cleansing No -Anesthetic Used 5% Lidocaine Gel WC - Nurse 2 - General Ulcer CM Notes Start: 06/06/21 08:01 Freq: Status: Active Protocol: Activity Type Activity Date Activity User E-Sign Co-Sign Detail Recorded Client Recorded Date Recorded By Document 06/06/21 08:23 GAGE [id number] 06/06/21 08:30 GAGE 06/06/21 08:23 Wound Center Nurse 2 5. L MEDIAL ANKLE -Time 08:24 -Correct Patient Yes -Correct Side, Site, Position Yes -Correct Procedure Yes -Procedure Performed Yes -Type of Procedure Debridement -Clinical Debridement Subcutaneous -Tissue Removed Subcutaneous -Post Debridement (cm) - Length 0.5 -Post Debridement (cm) - Width 0.5 -Post Debridement (cm) - Depth 1.4 -Total Square (Post) (cm) 0.25 -Area of Debridement (cm) - Length 0.5 -Area of Debridement (cm) - Width 0.5 -Total Square (Area) (cm) 0.25 -Tunneling No -Undermining/Tunneling No -Circular Undermining No -Wound/Ulcer Outcome Not Healed -Ulcer Cleansing Rinsed/ Irrigated with Saline -Foul Odor after Cleansing No -Bioengineered Tissue No -Bleeding Controlled with Pressure -Offloading No -Treatment Response Procedure Tolerated Well -Debridement - Subq, 1st 20sq cm No 3-left posterior heel -Time 08:23 -Correct Patient Yes -Correct Side, Site, Position Yes -Correct Procedure Yes -Procedure Performed Yes -Type of Procedure Debridement -Clinical Debridement Subcutaneous -Tissue Removed Subcutaneous -Post Debridement (cm) - Length 0.8 -Post Debridement (cm) - Width 0.6 -Post Debridement (cm) - Depth 0.7 -Total Square (Post) (cm) 0.48 -Area of Debridement (cm) - Length 0.8 -Area of Debridement (cm) - Width 0.6 -Total Square (Area) (cm) 0.48 -Tunneling No -Undermining/Tunneling No -Circular Undermining No -Wound/Ulcer Outcome Not Healed -Ulcer Cleansing Rinsed/ Irrigated with Saline -Foul Odor after Cleansing No -Bioengineered Tissue No -Bleeding Controlled with Pressure -Offloading Yes -Type of Offloading Knee Walker -Treatment Response Procedure Tolerated Well -Debridement - Subq, 1st 20sq cm Yes Pain Scale: 0-10 Numeric Is Patient Pain Free? Yes WC - Nurse 3 - General Ulcer D/C NN Start: 06/06/21 08:01 Freq: Status: Active Protocol: Activity Type Activity Date Activity User E-Sign Co-Sign Detail Recorded Client Recorded Date Recorded By Document 06/06/21 08:40 [facility] Desktop 06/06/21 08:41 [facility] 06/06/21 08:40 Wound Care Nurse 3 5. L MEDIAL ANKLE -Ulcer Cleansing Rinsed/ Irrigated with Saline -Foul Odor after Cleansing No -Primary Dressing Applied Aquacel AG 2x2 -Primary Dressing Covered/Secured with Dry Gauze & Roll Gauze, Secured with Tape -Aquacel AG 2x2 1 3-left posterior heel -Ulcer Cleansing Rinsed/ Irrigated with Saline -Foul Odor after Cleansing No -Primary Dressing Applied Aquacel AG 2x2 -Primary Dressing Covered/Secured with Dry Gauze & Roll Gauze, Secured with Tape,Other -Other Covering heel hat -Aquacel AG 2x2 0 Left -Tubular Bandage Double Layer -Size of Tubigrip Used Size D -Size D ($) 2 Treatment Response Procedure Tolerated Well Pain Scale: 0-10 Numeric Is Patient Pain Free? Yes WC - Visit Discharge Discharge Condition Stable Ambulatory Status Ambulatory, Walker Notes: knee walker Assessment/Plan Assessment/Plan 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: CODE(S): L97.526 - Non-pressure chronic ulcer of other part of left foot with bone involvement without evidence of necrosis (2) Non-pressure chronic ulcer of other part of left foot with fat layer exposed: CODE(S): L97.522 - Non-pressure chronic ulcer of other part of left foot with fat layer exposed (3) Type 2 diabetes mellitus with diabetic polyneuropathy: CODE(S): E11.42 - Type 2 diabetes mellitus with diabetic polyneuropathy (4) Achilles rupture, left: CODE(S): S86.012A - Strain of left Achilles tendon, initial encounter (5) Delayed wound healing: CODE(S): T14.8XXD - Other injury of unspecified body region, subsequent encounter (6) Malnutrition: CODE(S): E46 - Unspecified protein-calorie malnutrition (7) Palliative care patient: CODE(S): Z51.5 - Encounter for palliative care (8) PVD (peripheral vascular disease): CODE(S): I73.9 - Peripheral vascular disease, unspecified PLAN: This patient was examined and evaluated today. Subcutaneous excisional debridement was performed as noted in the clinical panel to the plantar ulcer site. To continue washing his foot with Dial soap and water. It is imperative that he keep pressure off of this site. To change daily dressing with Aquacel Ag to both sites. Edema is addressed with Tubigrip elevation. A new Tubigrip was dispensed today and he was advised on proper use. He was reassured no signs of infection or erythema are noted today. He was advised to continue knee roller use at home to aid with compliance. To avoid direct shoe contact. He certainly has many comorbidities and this makes him higher risk for infection and delayed healing. It is noted his noninvasive vascular studies were abnormal again and he has had previous lower extremity ulcers with significant delayed healing. He was advised to follow-up with Dr. Beck, vascular surgeon, as scheduled and advised. He has had prior intervention already. He is not able to come to the wound care center on a weekly basis and is not ready to commit to this process. He is amenable to coming to clinic every 3 to 4 weeks only. He is on a palliative care program at this time. Note: [employer] speech recognition extracorporeal technician software was used to create portions of this document. Sound-alike and misspelled words, as well as other extracorporeal technician errors may be contained in the documentation.
== END 2021-06-26 23:59 ==
LOC: WC 08:00
PROVIDERS: Family Provider Family Medicine; PCP Family Medicine; Referring Provider Podiatrist; Visit Provider Podiatrist
DX: L97.422 Non-pressure chronic ulcer of left heel and midfoot with fat layer exposed (principal); E11.42 Type 2 diabetes mellitus with diabetic polyneuropathy; E11.51 Type 2 diabetes mellitus with diabetic peripheral angiopathy without gangrene; Z51.5 Encounter for palliative care; Z79.84 Long term (current) use of oral hypoglycemic drugs; Z79.82 Long term (current) use of aspirin; Z79.899 Other long term (current) drug therapy
CPT/HCPCS: 11042

== ENCOUNTER 2021-07-04 08:00 | Outpatient (RCR) | payer MEDICARE, SELFPAY ==
[2021-06-27 00:20] VITALS: BP 173/93; PULSE 75; RESP 18; TEMP 35.9; BMI 27.3
[2021-07-04 08:02] VITALS: BP 168/84; PULSE 75; RESP 16; TEMP 35.7; BMI 27.3
--- NOTE | 2021-07-04 08:29 | PCM.WC.PN ---
History of Present Illness Date of Service: 07/04/21 Chief Complaint: Left heel ulcer History of Wound: This 76-year-old male with multiple comorbidities was seen today for left plantar heel ulcer. He has a history of prior osteomyelitis and has completed medical and surgical intervention. He denies odor, redness, warmth. He is on a palliative care plan. He denies fever, chill, nausea, vomiting. He has been applying Aquacel Ag to the site. He denies injury. Progress of Wound: improving Objective Data Objective Data Vital Signs: Vital Signs Temp Pulse Resp BP 96.3 F L 75 16 168/84 H 07/04/21 08:02 07/04/21 08:02 07/04/21 08:02 07/04/21 08:02 Oxygen Delivery Method Room Air Body Mass Index (BMI) 27.3 Physical Exam Const alert and oriented x3 General Appearance: cooperative HEENT normocephalic Extremity Extremity Narrative: No calf tenderness Diminished pulses Muscle wasting noted General Extremity: edema and no tenderness to palpation of joints or extremities; Negative for cyanosis Skin Skin Narrative: no purulence, no streaking, no odor, no infection. Plantar wound peripheral epithelialization is noted. There is a decreased size and depth to the skin discontinuity to the medial heel with granular base. This does not probe directly in communication with the plantar heel ulcer. There is no bogginess or fluctuance on palpation. Plantar medial aspect with continued epithelialization merging into the wound bed. General Skin Exam: Negative for erythema Neuro Neuro Narrative: lack of normal epicritic sensation via light touch is consistent with neuropathy status Psych cooperative and affect normal Debridement Note Debridement Note Wound debrided: left plantar and medial heel Wound Grade/Stage: 1,3 Type of Debridement: Excisional debridement Anesthesia Used: 4% Lidocaine Solution Depth: in the subcutaneous layer Percentage of wound debrided: 100 Instrument Used: #15 blade Tissue Removed: fibrous, devitalized subcutaneous, biofilm, slough Severity: Fat Layer Exposed Amount of bleeding with debridement: Mild Bleeding Controlled with: Pressure Patient tolerated procedure: Patient tolerated procedure well Post-Debridement Measurements and Additional Note: Post-Debridement Measurements/Treatment FINA - Nurse 1 - General Ulcer Assessment Start: 07/04/21 08:00 Freq: Status: Active Protocol: MALIK Activity Type Activity Date Activity User E-Sign Co-Sign Detail Recorded Client Recorded Date Recorded By Document 07/04/21 08:02 BMF [id number] 07/04/21 08:05 BM Edit Result 07/04/21 08:02 [facility] (1) [id number] 07/04/21 08:11 [facility] (1) Pulse Rate (60-100) => 75 Pulse Location => Monitor Blood Pressure (90/60-120/80) => 168/84 H Blood Pressure Mean (mm Hg) => 112 Source => Monitor Position => Sitting Blood Pressure Location => Left Arm 07/04/21 08:02 WC - Today's Visit Information Type of service Follow-up Visit (Physician/EDGE STAINER ) Arrival Mode Ambulatory, Walker Transfer Assistance None Patient Identification Verified (Name & Yes ) Patient Requires Transmission-Based No Precautions Height and Weight Body Mass Index (BMI) 27.3 BMI Classification Overweight Vital Signs Temperature (97.8 F-99.1 F) 96.3 F L Temperature Source Temporal Pulse Rate (60-100) 75 Pulse Location Monitor Respiratory Rate (12-18) 16 Respiratory rate source Observation Oxygen Delivery Method Room Air Blood Pressure (90/60-120/80) 168/84 H Blood Pressure Mean (mm Hg) 112 Source Monitor Position Sitting Blood Pressure Location Left Arm History Since Last Visit- (Skip if this is Patient's initial visit) Have you changed medications since your No last visit? Any new allergies or adverse reactions No Had a fall/change in ADL's that may No increase risk of falls Signs or symptoms of abuse and/or No neglect since last visit Have you been in the hospital since your No last visit? Has dressing in place as prescribed Yes Has compression in place as prescribed N/A Has offloadiing in place as prescribed Yes Experienced any changes in pain level or No management Left Footwear Slipper Right Footwear Slipper Pain Scale: 0-10 Numeric Is Patient Pain Free? Yes - Nurse 1 - General Ulcer Measurement Start: 07/04/21 08:00 Freq: Status: Active Protocol: Activity Type Activity Date Activity User E-Sign Co-Sign Detail Recorded Client Recorded Date Recorded By Document 07/04/21 08:02 [facility] [id number] 07/04/21 08:05 BM 07/04/21 08:02 Wound Center Nurse 1 5. L MEDIAL ANKLE -Combined with other wound No -Current Size (cm) - Length 0.2 -Current Size (cm) - Width 0.2 -Current Size (cm) - Depth 0.2 -Total Square Cm 0.04 -Photo Taken No -Epithelialization None Present -Tunneling No -Undermining/Tunneling No -Circular Undermining No -Exudate Amt Small -Exudate Type Serous -Wound Margin Distinct, Outline Attached -Granulation Amt Large (67-100%) -Granulation Quality Red -Slough/Fibrin No -Necrosis Amt Small (1-33%) -Necrotic Tissue Type Adherent Slough -Texture (Emily-wound Skin Appearance) Assessed, Scarring -Moisture (Emily-wound Skin Appearance) Assessed -Color (Emily-wound Skin Appearance) Assessed -Temperature (Emily-wound Skin No Abnormality Appearance) (Pt Warm) -Tenderness on Palpation (Emily-wound No Skin Appearance) -Ulcer Cleansing Soap and Water -Foul Odor after Cleansing No -Anesthetic Used 5% Lidocaine Gel 3-left posterior heel -Combined with other wound No -Current Size (cm) - Length 0.5 -Current Size (cm) - Width 0.6 -Current Size (cm) - Depth 1.2 -Total Square Cm 0.30 -Photo Taken No -Epithelialization None Present -Tunneling No -Undermining/Tunneling Yes -Undermining/Tunneling Starts (O'clock 6 ) -Undermining/Tunneling Ends (O'clock) 9 -Maximum Distance (cm) 0.8 -Circular Undermining No -Exudate Amt Medium -Exudate Type Serosanguineous -Wound Margin Thickened -Granulation Amt Medium (34-66%) -Granulation Quality Red -Slough/Fibrin Yes -Necrosis Amt Small (1-33%) -Necrotic Tissue Type Adherent Slough -Texture (Emily-wound Skin Appearance) Assessed,Callus ,Scarring -Moisture (Emily-wound Skin Appearance) Assessed, Maceration -Color (Emily-wound Skin Appearance) Assessed,Palor -Temperature (Emily-wound Skin No Abnormality Appearance) (Pt Warm) -Tenderness on Palpation (Emily-wound No Skin Appearance) -Ulcer Cleansing Soap and Water -Foul Odor after Cleansing No -Anesthetic Used 5% Lidocaine Gel WC - Nurse 2 - General Ulcer CM Notes Start: 07/04/21 08:00 Freq: Status: Active Protocol: Activity Type Activity Date Activity User E-Sign Co-Sign Detail Recorded Client Recorded Date Recorded By Document 07/04/21 08:14 GAGE [id number] 07/04/21 08:18 GAGE 07/04/21 08:14 Wound Center Nurse 2 5. L MEDIAL ANKLE -Time 08:15 -Correct Patient Yes -Correct Side, Site, Position Yes -Correct Procedure Yes -Procedure Performed Yes -Type of Procedure Debridement -Clinical Debridement Subcutaneous -Tissue Removed Subcutaneous -Post Debridement (cm) - Length 0.2 -Post Debridement (cm) - Width 0.3 -Post Debridement (cm) - Depth 0.3 -Total Square (Post) (cm) 0.06 -Area of Debridement (cm) - Length 0.2 -Area of Debridement (cm) - Width 0.3 -Total Square (Area) (cm) 0.06 -Tunneling No -Undermining/Tunneling No -Circular Undermining No -Wound/Ulcer Outcome Not Healed -Ulcer Cleansing Rinsed/ Irrigated with Saline -Foul Odor after Cleansing No -Bioengineered Tissue No -Bleeding Controlled with Pressure -Offloading Yes -Type of Offloading Knee Walker -Treatment Response Procedure Tolerated Well -Debridement - Subq, 1st 20sq cm No 3-left posterior heel -Time 08:15 -Correct Patient Yes -Correct Side, Site, Position Yes -Correct Procedure Yes -Procedure Performed Yes -Type of Procedure Debridement -Clinical Debridement Subcutaneous -Tissue Removed Subcutaneous -Post Debridement (cm) - Length 1.1 -Post Debridement (cm) - Width 2.1 -Post Debridement (cm) - Depth 0.9 -Total Square (Post) (cm) 2.31 -Area of Debridement (cm) - Length 1.1 -Area of Debridement (cm) - Width 2.1 -Total Square (Area) (cm) 2.31 -Tunneling No -Undermining/Tunneling No -Circular Undermining No -Wound/Ulcer Outcome Not Healed -Ulcer Cleansing Rinsed/ Irrigated with Saline -Foul Odor after Cleansing No -Bioengineered Tissue No -Bleeding Controlled with Pressure -Offloading Yes -Type of Offloading Knee Walker -Treatment Response Procedure Tolerated Well -Debridement - Subq, 1st 20sq cm Yes Pain Scale: 0-10 Numeric Is Patient Pain Free? 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 of necrosis (2) Non-pressure chronic ulcer of other part of left foot with fat layer exposed: CODE(S): L97.522 - Non-pressure chronic ulcer of other part of left foot with fat layer exposed (3) Type 2 diabetes mellitus with diabetic polyneuropathy: CODE(S): E11.42 - Type 2 diabetes mellitus with diabetic polyneuropathy (4) Achilles rupture, left: CODE(S): S86.012A - Strain of left Achilles tendon, initial encounter (5) Delayed wound healing: CODE(S): T14.8XXD - Other injury of unspecified body region, subsequent encounter (6) Malnutrition: CODE(S): E46 - Unspecified protein-calorie malnutrition (7) Palliative care patient: CODE(S): Z51.5 - Encounter for palliative care (8) PVD (peripheral vascular disease): CODE(S): I73.9 - Peripheral vascular disease, unspecified PLAN: This patient was examined and evaluated today. Subcutaneous excisional debridement was performed as noted in the clinical panel to the plantar ulcer site. To continue washing his foot with Dial soap and water. It is imperative that he keep pressure off of this site. To change daily dressing with Aquacel Ag to both sites. Edema is addressed with Tubigrip elevation. A new Tubigrip was dispensed today and he was advised on proper use. He was reassured no signs of infection or erythema are noted today. He was advised to continue knee roller use at home to aid with compliance. To avoid direct shoe contact. He certainly has many comorbidities and this makes him higher risk for infection and delayed healing. It is noted his noninvasive vascular studies were abnormal again and he has had previous lower extremity ulcers with significant delayed healing. He was advised to follow-up with Dr. Beck, vascular surgeon, as scheduled and advised. He has had prior intervention already. He is not able to come to the wound care center on a weekly basis and is not ready to commit to this process. He is amenable to coming to clinic every 3 to 4 weeks only. He is on a palliative care program at this time. Note: [employer] speech recognition nuclear medicine physician software was used to create portions of this document. Sound-alike and misspelled words, as well as other nuclear medicine physician errors may be contained in the documentation.
== END 2021-07-27 23:59 ==
LOC: WC 08:00
PROVIDERS: Family Provider Family Medicine; PCP Family Medicine; Referring Provider Podiatrist; Visit Provider Podiatrist
DX: E11.621 Type 2 diabetes mellitus with foot ulcer (principal); L97.422 Non-pressure chronic ulcer of left heel and midfoot with fat layer exposed; E11.42 Type 2 diabetes mellitus with diabetic polyneuropathy; E11.51 Type 2 diabetes mellitus with diabetic peripheral angiopathy without gangrene; R26.2 Difficulty in walking, not elsewhere classified; Z51.5 Encounter for palliative care; E66.3 Overweight; Z68.27 Body mass index [BMI] 27.0-27.9, adult
CPT/HCPCS: 11042

== ENCOUNTER 2021-08-01 08:00 | Outpatient (RCR) | payer MEDICARE, SELFPAY ==
[2021-07-28 00:19] VITALS: BP 168/84; PULSE 75; RESP 16; TEMP 35.7; BMI 27.3
[2021-08-01 08:08] VITALS: BP 159/78; PULSE 83; RESP 18; TEMP 36.2; BMI 27.3
--- NOTE | 2021-08-01 10:58 | PCM.WC.PN ---
History of Present Illness Date of Service: 08/01/21 Chief Complaint: Left heel ulcer History of Wound: This 76-year-old male with multiple comorbidities was seen today for left plantar heel ulcer. He has a history of prior osteomyelitis and has completed medical and surgical intervention. He denies odor, redness, warmth. He is on a palliative care plan. He denies fever, chill, nausea, vomiting. He has been applying Aquacel Ag to the site. He denies injury. Progress of Wound: improving Objective Data Objective Data Vital Signs: Vital Signs Temp Pulse Resp BP 97.1 F L 83 18 159/78 H 08/01/21 08:08 08/01/21 08:08 08/01/21 08:08 08/01/21 08:08 Body Mass Index (BMI) 27.3 Physical Exam Const alert and oriented x3 General Appearance: cooperative HEENT normocephalic Extremity Extremity Narrative: No calf tenderness Diminished pulses Muscle wasting noted General Extremity: edema and no tenderness to palpation of joints or extremities; Negative for cyanosis Skin Skin Narrative: no purulence, no streaking, no odor, no infection. Plantar wound peripheral epithelialization is noted. There is a decreased size and depth to the skin discontinuity to the medial heel with granular base. This does not probe directly in communication with the plantar heel ulcer. There is no bogginess or fluctuance on palpation. General Skin Exam: Negative for erythema Neuro Neuro Narrative: lack of normal epicritic sensation via light touch is consistent with neuropathy status Psych cooperative and affect normal Debridement Note Debridement Note Wound debrided: l. plantar heel and medial heel Wound Grade/Stage: 3,1 Type of Debridement: Excisional debridement Anesthesia Used: 4% Lidocaine Solution Depth: in the subcutaneous layer Percentage of wound debrided: 100 Instrument Used: #15 blade Tissue Removed: fibrous, devitalized subcutaneous, biofilm, slough Severity: Fat Layer Exposed Amount of bleeding with debridement: Mild Bleeding Controlled with: Pressure Patient tolerated procedure: Patient tolerated procedure well Post-Debridement Measurements and Additional Note: Post-Debridement Measurements/Treatment [facility] - Nurse 1 - General Ulcer Assessment Start: 08/01/21 08:06 Freq: Status: Active Protocol: MALIK Activity Type Activity Date Activity User E-Sign Co-Sign Detail Recorded Client Recorded Date Recorded By Document 08/01/21 08:08 ASHLI [id number] 08/01/21 08:16 DL 08/01/21 08:08 - Today's Visit Information Type of service Follow-up Visit (Physician/[employer] ) Arrival Mode Ambulatory, Walker Transfer Assistance None Patient Identification Verified (Name & Yes ) Patient Requires Transmission-Based No Precautions Height and Weight Body Mass Index (BMI) 27.3 BMI Classification Overweight Vital Signs Temperature (97.8 F-99.1 F) 97.1 F L Temperature Source Temporal Pulse Rate (60-100) 83 Pulse Location Monitor Respiratory Rate (12-18) 18 Respiratory rate source Observation Blood Pressure (90/60-120/80) 159/78 H Blood Pressure Mean (mm Hg) 105 Source Monitor History Since Last Visit- (Skip if this is Patient's initial visit) Have you changed medications since your No last visit? Any new allergies or adverse reactions No Had a fall/change in ADL's that may No increase risk of falls Signs or symptoms of abuse and/or No neglect since last visit Have you been in the hospital since your No last visit? Has dressing in place as prescribed Yes Has compression in place as prescribed Yes Has offloadiing in place as prescribed Yes Experienced any changes in pain level or No management Left Footwear Regular Shoe Right Footwear Regular Shoe Pain Scale: 0-10 Numeric Is Patient Pain Free? Yes - Nurse 1 - General Ulcer Measurement Start: 08/01/21 08:06 Freq: Status: Active Protocol: Activity Type Activity Date Activity User E-Sign Co-Sign Detail Recorded Client Recorded Date Recorded By Document 08/01/21 08:08 [id number] 08/01/21 08:16 08/01/21 08:08 Wound Center Nurse 1 5. L MEDIAL ANKLE -Current Size (cm) - Length 0.2 -Current Size (cm) - Width 0.2 -Current Size (cm) - Depth 0.1 -Total Square Cm 0.04 -Photo Taken No -Exudate Amt Small -Exudate Type Serosanguineous -Wound Margin Distinct, Outline Attached -Granulation Amt Small (1-33%) -Granulation Quality [place] -Necrosis Amt None Present (0 %) -Structure Exposed N/A -Texture (Emily-wound Skin Appearance) Scarring -Moisture (Emily-wound Skin Appearance) Maceration -Color (Emily-wound Skin Appearance) No Abnormality, Rubor -Temperature (Emily-wound Skin No Abnormality Appearance) (Pt Warm) -Tenderness on Palpation (Emily-wound No Skin Appearance) -Ulcer Cleansing Soap and Water -Foul Odor after Cleansing No -Anesthetic Used 4% Lidocaine Solution 3-left posterior heel -Current Size (cm) - Length 0.5 -Current Size (cm) - Width 1.8 -Current Size (cm) - Depth 1.1 -Total Square Cm 0.90 -Photo Taken No -Undermining/Tunneling Starts (O'clock 10 ) -Undermining/Tunneling Ends (O'clock) 11 -Maximum Distance (cm) 1 -Circular Undermining No -Exudate Amt Large -Exudate Type Serosanguineous -Wound Margin Distinct, Outline Attached -Granulation Amt Medium (34-66%) -Granulation Quality Red -Necrosis Amt Medium (34-66%) -Necrotic Tissue Type Adherent Slough -Structure Exposed N/A -Texture (Emily-wound Skin Appearance) Scarring -Moisture (Emily-wound Skin Appearance) Maceration -Color (Emily-wound Skin Appearance) No Abnormality -Temperature (Emily-wound Skin No Abnormality Appearance) (Pt Warm) -Tenderness on Palpation (Emily-wound No Skin Appearance) -Ulcer Cleansing Soap and Water -Foul Odor after Cleansing No -Anesthetic Used 4% Lidocaine Solution WC - Nurse 2 - General Ulcer CM Notes Start: 08/01/21 08:06 Freq: Status: Active Protocol: Activity Type Activity Date Activity User E-Sign Co-Sign Detail Recorded Client Recorded Date Recorded By Document 08/01/21 08:23 [id number] 08/01/21 08:26 GAGE 08/01/21 08:23 Wound Center Nurse 2 5. L MEDIAL ANKLE -Time 08:23 -Correct Patient Yes -Correct Side, Site, Position Yes -Correct Procedure Yes -Procedure Performed Yes -Type of Procedure Debridement -Clinical Debridement Subcutaneous -Tissue Removed Subcutaneous -Post Debridement (cm) - Length 0.3 -Post Debridement (cm) - Width 0.3 -Post Debridement (cm) - Depth 0.1 -Total Square (Post) (cm) 0.09 -Area of Debridement (cm) - Length 0.3 -Area of Debridement (cm) - Width 0.3 -Total Square (Area) (cm) 0.09 -Tunneling No -Undermining/Tunneling No -Circular Undermining No -Wound/Ulcer Outcome Not Healed -Ulcer Cleansing Rinsed/ Irrigated with Saline -Foul Odor after Cleansing No -Bioengineered Tissue No -Bleeding Controlled with Pressure -Offloading Yes -Type of Offloading Knee Walker -Treatment Response Procedure Tolerated Well -Debridement - Subq, 1st 20sq cm No 3-left posterior heel -Time 08:23 -Correct Patient Yes -Correct Side, Site, Position Yes -Correct Procedure Yes -Procedure Performed Yes -Type of Procedure Debridement -Clinical Debridement Subcutaneous -Tissue Removed Subcutaneous -Post Debridement (cm) - Length 1.0 -Post Debridement (cm) - Width 2.0 -Post Debridement (cm) - Depth 0.8 -Total Square (Post) (cm) 2.00 -Area of Debridement (cm) - Length 1.0 -Area of Debridement (cm) - Width 2.0 -Total Square (Area) (cm) 2.00 -Tunneling No -Undermining/Tunneling No -Circular Undermining No -Wound/Ulcer Outcome Not Healed -Ulcer Cleansing Rinsed/ Irrigated with Saline -Foul Odor after Cleansing No -Bioengineered Tissue No -Bleeding Controlled with Pressure -Offloading Yes -Type of Offloading Knee Walker -Treatment Response Procedure Tolerated Well -Debridement - Subq, 1st 20sq cm Yes Pain Scale: 0-10 Numeric Is Patient Pain Free? Yes WC - Nurse 3 - General Ulcer D/C NN Start: 08/01/21 08:06 Freq: Status: Active Protocol: Activity Type Activity Date Activity User E-Sign Co-Sign Detail Recorded Client Recorded Date Recorded By Document 08/01/21 08:35 DL [id number] 08/01/21 08:38 DL 08/01/21 08:35 Wound Care Nurse 3 5. L MEDIAL ANKLE -Ulcer Cleansing Rinsed/ Irrigated with Saline -Foul Odor after Cleansing No -Primary Dressing Applied Aquacel AG 4x4 -Primary Dressing Covered/Secured with Dry Gauze & Roll Gauze, Secured with Tape -Aquacel AG 4x4 1 3-left posterior heel -Ulcer Cleansing Soap and Water -Foul Odor after Cleansing No -Other Dressing aqaucel ag -Primary Dressing Covered/Secured with Dry Gauze & Roll Gauze, Secured with Tape Treatment Response Procedure Tolerated Well Pain Scale: 0-10 Numeric Is Patient Pain Free? Yes WC - Visit Discharge Discharge Condition Stable Ambulatory Status Ambulatory, Walker Facility Type Home Health Orders Sent 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 of necrosis (2) Non-pressure chronic ulcer of other part of left foot with fat layer exposed: CODE(S): L97.522 - Non-pressure chronic ulcer of other part of left foot with fat layer exposed (3) Type 2 diabetes mellitus with diabetic polyneuropathy: CODE(S): E11.42 - Type 2 diabetes mellitus with diabetic polyneuropathy (4) Achilles rupture, left: CODE(S): S86.012A - Strain of left Achilles tendon, initial encounter (5) Delayed wound healing: CODE(S): T14.8XXD - Other injury of unspecified body region, subsequent encounter (6) Malnutrition: CODE(S): E46 - Unspecified protein-calorie malnutrition (7) Palliative care patient: CODE(S): Z51.5 - Encounter for palliative care (8) PVD (peripheral vascular disease): CODE(S): I73.9 - Peripheral vascular disease, unspecified PLAN: This patient was examined and evaluated today. Subcutaneous excisional debridement was performed as noted in the clinical panel to the plantar ulcer site. To continue washing his foot with Dial soap and water. It is imperative that he keep pressure off of this site. To change daily dressing with Aquacel Ag to both sites. Edema is addressed with Tubigrip elevation. A new Tubigrip was dispensed today and he was advised on proper use. He was reassured no signs of infection or erythema are noted today. He was advised to continue knee roller use at home to aid with compliance. To avoid direct shoe contact. He certainly has many comorbidities and this makes him higher risk for infection and delayed healing. It is noted his noninvasive vascular studies were abnormal again and he has had previous lower extremity ulcers with significant delayed healing. He was advised to follow-up with Dr. Beck, vascular surgeon, as scheduled and advised. He has had prior intervention already. He is not able to come to the wound care center on a weekly basis and is not ready to commit to this process. He is amenable to coming to clinic every 3 to 4 weeks only. He is on a palliative care program at this time. Note: [employer] acquired by [employer] speech recognition supervisor reclamation software was used to create portions of this document. Sound-alike and misspelled words, as well as other supervisor reclamation errors may be contained in the documentation.
== END 2021-08-27 23:59 ==
LOC: WC 08:00
PROVIDERS: Family Provider Family Medicine; PCP Family Medicine; Referring Provider Podiatrist; Visit Provider Podiatrist
DX: E11.621 Type 2 diabetes mellitus with foot ulcer (principal); E11.51 Type 2 diabetes mellitus with diabetic peripheral angiopathy without gangrene; L97.422 Non-pressure chronic ulcer of left heel and midfoot with fat layer exposed; L97.322 Non-pressure chronic ulcer of left ankle with fat layer exposed; E11.42 Type 2 diabetes mellitus with diabetic polyneuropathy; Z51.5 Encounter for palliative care; S86.012D Strain of left Achilles tendon, subsequent encounter; E66.3 Overweight; Z68.27 Body mass index [BMI] 27.0-27.9, adult; Z79.82 Long term (current) use of aspirin; Z79.84 Long term (current) use of oral hypoglycemic drugs; Z79.899 Other long term (current) drug therapy
CPT/HCPCS: 11042

== ENCOUNTER 2021-08-29 08:00 | Outpatient (RCR) | payer MEDICARE, SELFPAY ==
[2021-08-28 00:23] VITALS: BP 159/78; PULSE 83; RESP 18; TEMP 36.2; BMI 27.3
[2021-08-29 08:03] VITALS: BP 163/65; PULSE 78; RESP 20; TEMP 36; BMI 27.3
--- NOTE | 2021-08-29 09:44 | PCM.WC.PN ---
History of Present Illness Date of Service: 08/29/21 Chief Complaint: Left heel ulcer History of Wound: This 76-year-old male with multiple comorbidities was seen today for left plantar heel ulcer. He has a history of prior osteomyelitis and has completed medical and surgical intervention. He denies odor, redness, warmth. He is on a palliative care plan. He denies fever, chill, nausea, vomiting. He has been applying Aquacel Ag to the site. He denies injury or increased drainage. Progress of Wound: stable Objective Data Objective Data Vital Signs: Vital Signs Temp Pulse Resp BP 96.8 F L 78 20 H 163/65 H 08/29/21 08:03 08/29/21 08:03 08/29/21 08:03 08/29/21 08:03 Body Mass Index (BMI) 27.3 Physical Exam Const alert and oriented x3 General Appearance: cooperative HEENT normocephalic Extremity Extremity Narrative: No calf tenderness Diminished pulses Muscle wasting noted General Extremity: edema and no tenderness to palpation of joints or extremities; Negative for cyanosis Skin Skin Narrative: no purulence, no streaking, no odor, no infection. Plantar wound peripheral epithelialization is noted. There is a decreased size and depth to the skin discontinuity to the medial heel with granular base (dec depth). This does not probe directly in communication with the plantar heel ulcer. There is no bogginess or fluctuance on palpation. loose bone debrided from plantar ulcer today. General Skin Exam: Negative for erythema Neuro Neuro Narrative: lack of normal epicritic sensation via light touch is consistent with neuropathy status Psych cooperative and affect normal Debridement Note Debridement Note Wound debrided: plantar and medial left heel Wound Grade/Stage: 3,1 Type of Debridement: Excisional debridement Anesthesia Used: 4% Lidocaine Solution Depth: in the subcutaneous layer Percentage of wound debrided: 100 Instrument Used: #15 blade Tissue Removed: fibrous, devitalized subcutaneous, biofilm, slough Severity: Fat Layer Exposed Amount of bleeding with debridement: Mild Bleeding Controlled with: Pressure Patient tolerated procedure: Patient tolerated procedure well Post-Debridement Measurements and Additional Note: Post-Debridement Measurements/Treatment [facility] - Nurse 1 - General Ulcer Assessment Start: 08/29/21 08:03 Freq: Status: Active Protocol: MALIK Activity Type Activity Date Activity User E-Sign Co-Sign Detail Recorded Client Recorded Date Recorded By Document 08/29/21 08:03 DL [id number] 08/29/21 08:09 DL 08/29/21 08:03 WC - Today's Visit Information Type of service Follow-up Visit (Physician/[employer] ) Arrival Mode Ambulatory, Walker Transfer Assistance None Patient Identification Verified (Name & Yes ) Patient Requires Transmission-Based No Precautions Finger Stick Blood Sugar(mg/dl) (if didnt check indicated): Blood Sugar Stated by Patient Height and Weight Body Mass Index (BMI) 27.3 BMI Classification Overweight Vital Signs Temperature (97.8 F-99.1 F) 96.8 F L Temperature Source Oral Pulse Rate (60-100) 78 Pulse Location Monitor Respiratory Rate (12-18) 20 H Respiratory rate source Observation Blood Pressure (90/60-120/80) 163/65 H Blood Pressure Mean (mm Hg) 97 Source Monitor History Since Last Visit- (Skip if this is Patient's initial visit) Have you changed medications since your No last visit? Any new allergies or adverse reactions No Had a fall/change in ADL's that may No increase risk of falls Signs or symptoms of abuse and/or No neglect since last visit Have you been in the hospital since your No last visit? Has dressing in place as prescribed Yes Has compression in place as prescribed Yes Has offloadiing in place as prescribed Yes Experienced any changes in pain level or No management Pain Scale: 0-10 Numeric Is Patient Pain Free? Yes - Nurse 1 - General Ulcer Measurement Start: 08/29/21 08:03 Freq: Status: Active Protocol: Activity Type Activity Date Activity User E-Sign Co-Sign Detail Recorded Client Recorded Date Recorded By Document 08/29/21 08:03 [id number] 08/29/21 08:09 DL 08/29/21 08:03 Wound Center Nurse 1 5. L MEDIAL ANKLE -Current Size (cm) - Length 0.8 -Current Size (cm) - Width 0.6 -Current Size (cm) - Depth 0.1 -Total Square Cm 0.48 -Photo Taken No -Exudate Amt Small -Exudate Type Serosanguineous -Wound Margin Distinct, Outline Attached -Granulation Amt Small (1-33%) -Granulation Quality [place] -Necrosis Amt Small (1-33%) -Necrotic Tissue Type Adherent Slough -Structure Exposed N/A -Texture (Emily-wound Skin Appearance) Scarring -Moisture (Emily-wound Skin Appearance) Maceration -Color (Emily-wound Skin Appearance) No Abnormality -Temperature (Emily-wound Skin No Abnormality Appearance) (Pt Warm) -Tenderness on Palpation (Emily-wound No Skin Appearance) -Ulcer Cleansing Soap and Water -Foul Odor after Cleansing No -Anesthetic Used 4% Lidocaine Solution 3-left posterior heel -Current Size (cm) - Length 1 -Current Size (cm) - Width 3.1 -Current Size (cm) - Depth 2 -Total Square Cm 3.1 -Photo Taken No -Exudate Amt Large -Exudate Type Serosanguineous -Wound Margin Thickened -Granulation Amt Medium (34-66%) -Granulation Quality Red -Necrosis Amt Medium (34-66%) -Necrotic Tissue Type Adherent Slough -Structure Exposed N/A -Texture (Emily-wound Skin Appearance) Scarring -Moisture (Emily-wound Skin Appearance) Maceration -Color (Emily-wound Skin Appearance) No Abnormality -Temperature (Emily-wound Skin No Abnormality Appearance) (Pt Warm) -Tenderness on Palpation (Emily-wound Yes Skin Appearance) -Ulcer Cleansing Soap and Water -Foul Odor after Cleansing No -Anesthetic Used 4% Lidocaine Solution WC - Nurse 2 - General Ulcer CM Notes Start: 08/29/21 08:03 Freq: Status: Active Protocol: Activity Type Activity Date Activity User E-Sign Co-Sign Detail Recorded Client Recorded Date Recorded By Document 08/29/21 08:22 [id number] 08/29/21 08:26 08/29/21 08:22 Wound Center Nurse 2 5. L MEDIAL ANKLE -Time 08:23 -Correct Patient Yes -Correct Side, Site, Position Yes -Correct Procedure Yes -Procedure Performed Yes -Type of Procedure Debridement -Clinical Debridement Subcutaneous -Tissue Removed Subcutaneous -Post Debridement (cm) - Length 0.8 -Post Debridement (cm) - Width 0.7 -Post Debridement (cm) - Depth 0.1 -Total Square (Post) (cm) 0.56 -Area of Debridement (cm) - Length 0.8 -Area of Debridement (cm) - Width 0.7 -Total Square (Area) (cm) 0.56 -Tunneling No -Undermining/Tunneling No -Circular Undermining No -Wound/Ulcer Outcome Not Healed -Ulcer Cleansing Rinsed/ Irrigated with Saline -Foul Odor after Cleansing No -Bioengineered Tissue No -Bleeding Controlled with Pressure -Offloading Yes -Type of Offloading Knee Walker -Treatment Response Procedure Tolerated Well -Debridement - Subq, 1st 20sq cm Yes 3-left posterior heel -Time 08:23 -Correct Patient Yes -Correct Side, Site, Position Yes -Correct Procedure Yes -Procedure Performed Yes -Type of Procedure Debridement -Clinical Debridement Bone -Tissue Removed Slough -Post Debridement (cm) - Length 1.1 -Post Debridement (cm) - Width 3.1 -Post Debridement (cm) - Depth 2.0 -Total Square (Post) (cm) 3.41 -Area of Debridement (cm) - Length 1.1 -Area of Debridement (cm) - Width 3.1 -Total Square (Area) (cm) 3.41 -Tunneling No -Undermining/Tunneling No -Circular Undermining No -Wound/Ulcer Outcome Not Healed -Ulcer Cleansing Rinsed/ Irrigated with Saline -Foul Odor after Cleansing No -Bioengineered Tissue No -Bleeding Controlled with Pressure -Offloading Yes -Type of Offloading Knee Walker -Treatment Response Procedure Tolerated Well -Debridement - Subq, 1st 20sq cm No -Debridement - Bone, 1st 20sq cm Yes Pain Scale: 0-10 Numeric Is Patient Pain Free? Yes WC - Nurse 3 - General Ulcer D/C NN Start: 08/29/21 08:03 Freq: Status: Active Protocol: Activity Type Activity Date Activity User E-Sign Co-Sign Detail Recorded Client Recorded Date Recorded By Document 08/29/21 08:30 DL [id number] 08/29/21 08:38 DL 08/29/21 08:30 Wound Care Nurse 3 5. L MEDIAL ANKLE -Ulcer Cleansing Soap and Water -Foul Odor after Cleansing No -Primary Dressing Applied Aquacel AG 4x4 -Primary Dressing Covered/Secured with Dry Gauze & Roll Gauze, Secured with Tape -Aquacel AG 4x4 1 3-left posterior heel -Ulcer Cleansing Soap and Water -Foul Odor after Cleansing No -Other Dressing AQUACEL aG -Primary Dressing Covered/Secured with Dry Gauze & Roll Gauze, Secured with Tape Treatment Response Procedure Tolerated Well Pain Scale: 0-10 Numeric Is Patient Pain Free? 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 of necrosis (2) Non-pressure chronic ulcer of other part of left foot with fat layer exposed: CODE(S): L97.522 - Non-pressure chronic ulcer of other part of left foot with fat layer exposed (3) Type 2 diabetes mellitus with diabetic polyneuropathy: CODE(S): E11.42 - Type 2 diabetes mellitus with diabetic polyneuropathy (4) Achilles rupture, left: CODE(S): S86.012A - Strain of left Achilles tendon, initial encounter (5) Delayed wound healing: CODE(S): T14.8XXD - Other injury of unspecified body region, subsequent encounter (6) Malnutrition: CODE(S): E46 - Unspecified protein-calorie malnutrition (7) Palliative care patient: CODE(S): Z51.5 - Encounter for palliative care (8) PVD (peripheral vascular disease): CODE(S): I73.9 - Peripheral vascular disease, unspecified PLAN: This patient was examined and evaluated today. Subcutaneous excisional debridement was performed as noted in the clinical panel to the medial ulcer site and excisional bone debridement to plantar ulcer. To continue washing his foot with Dial soap and water. It is imperative that he keep pressure off of this site. To change daily dressing with Aquacel Ag to both sites. Edema is addressed with Tubigrip elevation. A new Tubigrip was dispensed today and he was advised on proper use. He was reassured no signs of infection or erythema are noted today. He was advised to continue knee roller use at home to aid with compliance. To avoid direct shoe contact. He certainly has many comorbidities and this makes him higher risk for infection and delayed healing. It is noted his noninvasive vascular studies were abnormal again and he has had previous lower extremity ulcers with significant delayed healing. He was advised to follow-up with Dr. Beck, vascular surgeon, as scheduled and advised. He has had prior intervention already. He is not able to come to the wound care center on a weekly basis and is not ready to commit to this process. He is amenable to coming to clinic every 3 to 4 weeks only. He is on a palliative care program at this time. Note: [employer] speech recognition aviation project engineer software was used to create portions of this document. Sound-alike and misspelled words, as well as other aviation project engineer errors may be contained in the documentation.
== END 2021-09-24 23:59 | disposition home or self-care (01) ==
LOC: WC 08:00
PROVIDERS: Family Provider Family Medicine; PCP Family Medicine; Referring Provider Podiatrist; Visit Provider Podiatrist
DX: E11.621 Type 2 diabetes mellitus with foot ulcer (principal); E11.51 Type 2 diabetes mellitus with diabetic peripheral angiopathy without gangrene; L97.426 Non-pressure chronic ulcer of left heel and midfoot with bone involvement without evidence of necrosis; L97.422 Non-pressure chronic ulcer of left heel and midfoot with fat layer exposed; E11.42 Type 2 diabetes mellitus with diabetic polyneuropathy; S86.012D Strain of left Achilles tendon, subsequent encounter; E66.3 Overweight; Z68.27 Body mass index [BMI] 27.0-27.9, adult; Z79.82 Long term (current) use of aspirin; Z79.84 Long term (current) use of oral hypoglycemic drugs; Z79.899 Other long term (current) drug therapy
CPT/HCPCS: 11042; 11044

== ENCOUNTER 2021-09-26 08:00 | Outpatient (RCR) | payer MEDICARE, SELFPAY ==
[2021-09-25 00:24] VITALS: BP 163/65; PULSE 78; RESP 20; TEMP 36; BMI 27.3
[2021-09-26 08:08] VITALS: BP 186/89; PULSE 79; RESP 18; TEMP 36.6; BMI 27.3
--- NOTE | 2021-09-26 08:23 | PN.PCM_ITS ---
History of Present Illness Date of Service: 09/26/21 Chief Complaint: Left heel ulcer History of Wound: This 76-year-old male with multiple comorbidities was seen today for left plantar heel ulcer. He has a history of prior osteomyelitis and has completed medical and surgical intervention. He denies odor, redness, warmth. He is on a palliative care plan. He denies fever, chill, nausea, vomiting. He has been applying Aquacel Ag to the site. He denies injury or increased drainage. He will travel to [place] for the next 3 weeks. He will bring his knee roller. He presents today walking in an athletic sneaker. Progress of Wound: Stable Objective Data Objective Data Vital Signs: Vital Signs Temp Pulse Resp BP 97.8 F 79 18 186/89 H 09/26/21 08:08 09/26/21 08:08 09/26/21 08:08 09/26/21 08:08 Body Mass Index (BMI) 27.3 Physical Exam Const alert and oriented x3 General Appearance: cooperative HEENT normocephalic Extremity Extremity Narrative: No calf tenderness Diminished pulses Muscle wasting noted General Extremity: edema and no tenderness to palpation of joints or extremities; Negative for cyanosis Skin Skin Narrative: no purulence, no streaking, no odor, no infection. Plantar wound peripheral epithelialization is noted. There is a decreased size and depth to the skin discontinuity to the medial heel with granular base. This does not probe directly in communication with the plantar heel ulcer. There is no bogginess or fluctuance on palpation. loose bone debrided from plantar ulcer today. General Skin Exam: Negative for erythema Neuro Neuro Narrative: lack of normal epicritic sensation via light touch is consistent with neuropathy status Psych cooperative and affect normal Debridement Note Debridement Note Wound debrided: plantar left heel, medial left heel Wound Grade/Stage: 3,1 Type of Debridement: Excisional debridement Anesthesia Used: 4% Lidocaine Solution Depth: in the subcutaneous layer Percentage of wound debrided: 100 Instrument Used: #15 blade Tissue Removed: fibrous, devitalized subcutaneous, biofilm, slough Severity: Fat Layer Exposed Amount of bleeding with debridement: Mild Bleeding Controlled with: Pressure Patient tolerated procedure: Patient tolerated procedure well Post-Debridement Measurements and Additional Note: Post-Debridement Measurements/Treatment WC - Nurse 1 - General Ulcer Assessment Start: 09/26/21 08:08 Freq: Status: Active Protocol: WC.LOWEXT Activity Type Activity Date Activity User E-Sign Co-Sign Detail Recorded Client Recorded Date Recorded By Document 09/26/21 08:08 ASHLI [id number] 09/26/21 08:11 09/26/21 08:08 - Today's Visit Information Type of service Follow-up Visit (Physician/[employer]OR [employer] ) Arrival Mode Ambulatory, Walker Transfer Assistance None Patient Identification Verified (Name & Yes ) Patient Requires Transmission-Based No Precautions Height and Weight Body Mass Index (BMI) 27.3 BMI Classification Overweight Vital Signs Temperature (97.8 F-99.1 F) 97.8 F Temperature Source Temporal Pulse Rate (60-100) 79 Pulse Location Monitor Respiratory Rate (12-18) 18 Respiratory rate source Observation Blood Pressure (90/60-120/80) 186/89 H Blood Pressure Mean (mm Hg) 121 Source Monitor History Since Last Visit- (Skip if this is Patient's initial visit) Have you changed medications since your No last visit? Any new allergies or adverse reactions No Had a fall/change in ADL's that may No increase risk of falls Signs or symptoms of abuse and/or No neglect since last visit Have you been in the hospital since your No last visit? Has dressing in place as prescribed Yes Has compression in place as prescribed N/A Has offloadiing in place as prescribed Yes Experienced any changes in pain level or No management Pain Scale: 0-10 Numeric Is Patient Pain Free? Yes - Nurse 1 - General Ulcer Measurement Start: 09/26/21 08:08 Freq: Status: Active Protocol: Activity Type Activity Date Activity User E-Sign Co-Sign Detail Recorded Client Recorded Date Recorded By Document 09/26/21 08:08 ASHLI [id number] 09/26/21 08:11 DL 09/26/21 08:08 Wound Center Nurse 1 5. L MEDIAL ANKLE -Current Size (cm) - Length 0.2 -Current Size (cm) - Width 0.2 -Current Size (cm) - Depth 0.1 -Total Square Cm 0.04 -Photo Taken No -Exudate Amt Small -Exudate Type Serosanguineous -Wound Margin Distinct, Outline Attached -Granulation Amt Small (1-33%) -Granulation Quality Red -Necrosis Amt Small (1-33%) -Necrotic Tissue Type Adherent Slough -Structure Exposed N/A -Texture (Emily-wound Skin Appearance) Scarring -Moisture (Meily-wound Skin Appearance) Dry/Scaly -Color (Emily-wound Skin Appearance) No Abnormality -Temperature (Emily-wound Skin No Abnormality Appearance) (Pt Warm) -Tenderness on Palpation (Emily-wound No Skin Appearance) -Ulcer Cleansing Soap and Water -Foul Odor after Cleansing No -Anesthetic Used 4% Lidocaine Solution 3-left posterior heel -Current Size (cm) - Length 0.7 -Current Size (cm) - Width 1.5 -Current Size (cm) - Depth 1 -Total Square Cm 1.05 -Photo Taken No -Exudate Amt Medium -Exudate Type Serosanguineous -Wound Margin Distinct, Outline Attached -Granulation Amt Medium (34-66%) -Granulation Quality Red -Necrosis Amt Medium (34-66%) -Necrotic Tissue Type Adherent Slough -Structure Exposed N/A -Texture (Emily-wound Skin Appearance) Scarring -Moisture (Emily-wound Skin Appearance) Maceration -Color (Emily-wound Skin Appearance) No Abnormality -Ulcer Cleansing Soap and Water -Foul Odor after Cleansing No -Anesthetic Used 4% Lidocaine Solution WC - Nurse 2 - General Ulcer CM Notes Start: 09/26/21 08:08 Freq: Status: Active Protocol: Activity Type Activity Date Activity User E-Sign Co-Sign Detail Recorded Client Recorded Date Recorded By Document 09/26/21 08:18 [id number] 09/26/21 08:20 GAGE 09/26/21 08:18 Wound Center Nurse 2 5. L MEDIAL ANKLE -Time 08:18 -Correct Patient Yes -Correct Side, Site, Position Yes -Correct Procedure Yes -Procedure Performed Yes -Type of Procedure Debridement -Clinical Debridement Subcutaneous -Tissue Removed Subcutaneous -Post Debridement (cm) - Length 0.3 -Post Debridement (cm) - Width 0.2 -Post Debridement (cm) - Depth 0.1 -Total Square (Post) (cm) 0.06 -Area of Debridement (cm) - Length 0.3 -Area of Debridement (cm) - Width 0.2 -Total Square (Area) (cm) 0.06 -Tunneling No -Undermining/Tunneling No -Circular Undermining No -Wound/Ulcer Outcome Not Healed -Ulcer Cleansing Rinsed/ Irrigated with Saline -Foul Odor after Cleansing No -Bioengineered Tissue No -Bleeding Controlled with Pressure -Offloading Yes -Type of Offloading Knee Walker -Treatment Response Procedure Tolerated Well -Debridement - Subq, 1st 20sq cm No 3-left posterior heel -Time 08:18 -Correct Patient Yes -Correct Side, Site, Position Yes -Correct Procedure Yes -Procedure Performed Yes -Type of Procedure Debridement -Clinical Debridement Subcutaneous -Tissue Removed Subcutaneous -Post Debridement (cm) - Length 0.8 -Post Debridement (cm) - Width 1.5 -Post Debridement (cm) - Depth 1.0 -Total Square (Post) (cm) 1.20 -Area of Debridement (cm) - Length 0.8 -Area of Debridement (cm) - Width 1.5 -Total Square (Area) (cm) 1.20 -Tunneling No -Undermining/Tunneling No -Circular Undermining No -Wound/Ulcer Outcome Not Healed -Ulcer Cleansing Rinsed/ Irrigated with Saline -Foul Odor after Cleansing No -Bioengineered Tissue No -Bleeding Controlled with Pressure -Offloading Yes -Type of Offloading Knee Walker -Treatment Response Procedure Tolerated Well -Debridement - Subq, 1st 20sq cm Yes Pain Scale: 0-10 Numeric Is Patient Pain Free? 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 of necrosis (2) Non-pressure chronic ulcer of other part of left foot with fat layer exposed: CODE(S): L97.522 - Non-pressure chronic ulcer of other part of left foot with fat layer exposed (3) Type 2 diabetes mellitus with diabetic polyneuropathy: CODE(S): E11.42 - Type 2 diabetes mellitus with diabetic polyneuropathy (4) Achilles rupture, left: CODE(S): S86.012A - Strain of left Achilles tendon, initial encounter (5) Delayed wound healing: CODE(S): T14.8XXD - Other injury of unspecified body region, subsequent encounter (6) Malnutrition: CODE(S): E46 - Unspecified protein-calorie malnutrition (7) Palliative care patient: CODE(S): Z51.5 - Encounter for palliative care (8) PVD (peripheral vascular disease): CODE(S): I73.9 - Peripheral vascular disease, unspecified PLAN: This patient was examined and evaluated today. Subcutaneous excisional debridement was performed as noted in the clinical panel to the medial ulcer site and excisional bone debridement to plantar ulcer. To continue washing his foot with Dial soap and water. It is imperative that he keep pressure off of this site. To change daily dressing with Aquacel Ag to both sites. Edema is addressed with Tubigrip elevation. A new Tubigrip was dispensed today and he was advised on proper use. He was reassured no signs of infection or erythema are noted today. He was advised to continue knee roller use at home to aid with compliance. To avoid direct shoe contact. He does not appear he is compliant today and this was discussed. He certainly has many comorbidities and this makes him higher risk for infection and delayed healing. It is noted his noninvasive vascular studies were abnormal again and he has had previous lower extremity ulcers with significant delayed healing. He was advised to follow-up with Dr. Beck, vascular surgeon, as scheduled and advised. He has had prior intervention already. He is not able to come to the wound care center on a weekly basis and is not ready to commit to this process. He is amenable to coming to clinic every 3 to 4 weeks only. He is on a palliative care program at this time. Note: [employer] speech recognition mainframe applications developer software was used to create portions of this document. Sound-alike and misspelled words, as well as other mainframe applications developer errors may be contained in the documentation.
== END 2021-10-25 23:59 | disposition home or self-care (01) ==
LOC: WC 08:00
PROVIDERS: Family Provider Family Medicine; PCP Family Medicine; Referring Provider Podiatrist; Visit Provider Podiatrist
DX: E11.621 Type 2 diabetes mellitus with foot ulcer (principal); E11.51 Type 2 diabetes mellitus with diabetic peripheral angiopathy without gangrene; L97.422 Non-pressure chronic ulcer of left heel and midfoot with fat layer exposed; E11.42 Type 2 diabetes mellitus with diabetic polyneuropathy; S86.012D Strain of left Achilles tendon, subsequent encounter; X58.XXXD Exposure to other specified factors, subsequent encounter; Z51.5 Encounter for palliative care; Z79.82 Long term (current) use of aspirin; Z79.84 Long term (current) use of oral hypoglycemic drugs
CPT/HCPCS: 11042